=== PATIENT | female | born 1940 | race Caucasian/White ===

== ENCOUNTER 2023-03-17 07:42 | Outpatient (OUT) | payer MEDICARE, OTHER, SELFPAY ==
--- NOTE | 2023-03-17 07:57 | MM_ITS ---
Patient: SON STROUD Exam Date: 03/17/2023 : 1940 Gender:F Ordering : DR OCHOA MEDINA M.D. Admission #: [id number] Family : Order #: [id number] CLICK HERE TO VIEW EXAM RADIOLOGY REPORT PROCEDURE: MM TOMOSYNTHESIS SCREENING BI COMPARISON: MG MAMM SCREEN 3D NIC CAD, 03/08/2021. MG MAMM SCREEN 3D NIC CAD, 03/16/2022. INDICATIONS: Screening mammogram Z12.31 Calculator Name NCI Breast Cancer Risk Assessment Tool 5 Year Breast Cancer Risk n/a% Lifetime Breast Cancer Risk n/a% Personal Breast Cancer Yes, lt intraductal comeocarcinoma with necrosis Personal Ovarian Cancer No Treatments lumpectomy and radiation therapy Family Cancers None LOCATION: [facility] BREAST COMPOSITION: Scattered areas fibroglandular density. FINDINGS: DIAGNOSTIC CATEGORY 2--BENIGN FINDING. NO CHANGE FROM COMPARISON. Scattered benign-appearing calcifications are present. Scattered benign-appearing lymph nodes are present. RIGHT BREAST: No significant suspicious finding. LEFT BREAST: No significant suspicious finding. Asymmetrically small with an area of architectural distortion upper outer quadrant, deep to linear scar markers, stable RECOMMENDATIONS: ROUTINE MAMMOGRAM AND CLINICAL EVALUATION IN 12 MONTHS. PLEASE NOTE: A NORMAL MAMMOGRAM DOES NOT EXCLUDE THE POSSIBILITY OF BREAST CANCER. A CLINICALLY SUSPICIOUS PALPABLE LUMP SHOULD BE BIOPSIED. Dictated by: Pato Wolfe MD on 03/17/2023 at 09:09 Approved by: Pato Wolfe MD on 03/17/2023 at 09:14
== END 2023-03-17 07:43 | disposition home or self-care (01) ==
LOC: MAMMO 07:47
PROVIDERS: PCP Family Medicine; Visit Provider Family Medicine
DX: Z12.31 Encounter for screening mammogram for malignant neoplasm of breast (principal)
CPT/HCPCS: 77063; 77067

== ENCOUNTER 2023-06-07 09:07 | Outpatient (OUT) | payer MEDICARE, OTHER, SELFPAY ==
[2023-06-07 09:40] LABS: Basophils Percent Auto 0.7 % (0.2-2.0); Eosinophils Absolute Auto 0.1 10^3/uL (0.0-0.7); Eosinophils Percent Auto 1.8 % (0.9-7.0); Hematocrit 41.5 % (36.0-48.0); Immature Granulocytes Abs Auto 0.02 10^3/uL (0.00-0.03); Immature Granulocytes Pct Auto 0.4 % (0.0-0.5); Lymphocytes Absolute Auto 1.3 10^3/uL (1.2-3.8); Lymphocytes Percent Auto 22.3 % (20.5-60.0); Mean Corpuscular HGB Conc 31.3 g/dL (29.9-35.2); Mean Corpuscular Hemoglobin 29.3 pg (26.7-34.0); Mean Corpuscular Volume 93.7 fL (81.0-99.0); Mean Platelet Volume 11.3 fL (9.5-13.5); Monocytes Absolute Auto 0.5 10^3/uL (0.3-0.8); Monocytes Percent Auto 7.9 % (1.7-12.0); Neutrophils Absolute Auto 3.8 10^3/uL (1.4-6.5); Neutrophils Percent Auto 66.9 % (43.0-75.0); Platelet Count 216 10^3/uL (150-450); Red Blood Count 4.43 10^6/uL (4.20-5.40); Red Cell Distribution Width 14.1 % (11.0-15.0); White Blood Count 5.7 10^3/uL (4.0-11.0)
[2023-06-07 12:12] LABS: Alanine Aminotransferase 23 U/L (14-59); Albumin Globulin Ratio 0.9; Albumin Level 3.4 g/dL (3.4-5.0); Alkaline Phosphatase 125 U/L (46-116); Anion Gap 12.5; Aspartate Amino Transferase 22 U/L (15-37); BUN Creatinine Ratio 29.4; Bilirubin Total 0.3 mg/dL (0.2-1.0); Carbon Dioxide 29.8 mmol/L (21.0-32.0); Chloride 106 mmol/L (98-107); Chol HDL Ratio 2.8; Cholesterol 300 mg/dL (<=200); Estimated GFR (African America >60 (>=60); Estimated GFR (Non-African Ame >60 (>=60); Globulin 3.7 g/dL; Glucose 96 mg/dL (74-106); HDL Cholesterol 108 mg/dL (40-60); Potassium 4.3 mmol/L (3.5-5.1); Sodium 144 mmol/L (136-145); Total Protein 7.1 g/dL (6.4-8.2); Triglycerides 82 mg/dL (<=150); VLDL CHOLESTEROL 16.4 mg/dL
== END 2023-06-07 09:08 | disposition home or self-care (01) ==
LOC: LAB 09:09
PROVIDERS: PCP Family Medicine; Visit Provider Physician Assistant
DX: Z00.00 Encounter for general adult medical examination without abnormal findings (principal); I10 Essential (primary) hypertension; E80.0 Hereditary erythropoietic porphyria
CPT/HCPCS: 36415; 80053; 80061; 85025

== ENCOUNTER 2023-09-08 07:44 | Outpatient (OUT) | payer MEDICARE, OTHER, SELFPAY ==
--- NOTE | 2023-09-08 07:48 | XR_ITS ---
[place] [id number] Patient Name: SON STROUD MRN: [id number] date: 1940 Sex: F Assigned Patient Location: [facility] Current Patient Location: [facility] Accession/Order Number: [id number] Exam Date: 09/08/2023 08:00 Report Date: 09/08/2023 08:49 At the request of: OCHOA MEDINA Procedure: XR DEXA axial skeleton EXAMINATION: XR DEXA axial skeleton, 09/08/2023 8:00 AM EST HISTORY: Age Related Osteoporosis COMPARISON: 2020, 2018, 2014, 2011. TECHNIQUE: Dual-energy X-ray absorptiometry (DEXA) bone density study performed for the axial skeleton. HISTORY: Age Related Osteoporosis FINDINGS: Bone mineral density of the lumbar spine L1-L4 measures 1.032 g/sq cm. T score -1.2. WHO classification: Osteopenia. Lowest bone mineral density right femoral neck measures 0.762 g/sq cm. T score -2.0. WHO classification: Osteopenia XR/XR DEXA axial skeleton IMPRESSION: Osteopenia. Moderate fracture risk Electronically authenticated by: MOISES BAH Date: 09/08/2023 08:49
== END 2023-09-08 07:45 | disposition home or self-care (01) ==
LOC: RAD 07:44
PROVIDERS: PCP Family Medicine; Visit Provider Family Medicine
DX: Z00.00 Encounter for general adult medical examination without abnormal findings (principal); M81.0 Age-related osteoporosis without current pathological fracture; E28.39 Other primary ovarian failure; M85.80 Other specified disorders of bone density and structure, unspecified site
CPT/HCPCS: 77080

== ENCOUNTER 2024-03-18 08:14 | Outpatient (OUT) | payer MEDICARE, OTHER, SELFPAY ==
--- NOTE | 2024-03-18 08:17 | MM_ITS ---
Patient Name: SON STROUD MR#: [id number] : 1940 Exam Date: 03/18/2024 Ordering Doctor: DR OCHOA MEDINA M.D. RADIOLOGY REPORT PROCEDURE: MM TOMOSYNTHESIS SCREENING BI COMPARISON: MG MAMM SCREEN 3D NIC CAD, 03/16/2022. MM TOMOSYNTHESIS SCREENING BI, 03/17/2023. INDICATIONS: screening Calculator Name NCI Breast Cancer Risk Assessment Tool 5 Year Breast Cancer Risk Not Applicable. Lifetime Breast Cancer Risk Not Applicable. Personal Breast Cancer Yes, lt intraductal comeocarcinoma with necrosis Personal Ovarian Cancer No Treatments lumpectomy and radiation therapy Family Cancers None LOCATION: [facility] BREAST COMPOSITION: There are scattered areas of fibroglandular density. FINDINGS: DIAGNOSTIC CATEGORY 2--BENIGN FINDING. NO CHANGE FROM COMPARISON. Scattered benign-appearing calcifications are present. Scattered benign-appearing lymph nodes are present. RIGHT BREAST: No significant suspicious finding. LEFT BREAST: No significant suspicious finding. Asymmetrically small, stable. Area of architectural distortion upper outer quadrant, deep to a linear scar marker, unchanged. RECOMMENDATIONS: ROUTINE MAMMOGRAM AND CLINICAL EVALUATION IN 12 MONTHS. PLEASE NOTE: A NORMAL MAMMOGRAM DOES NOT EXCLUDE THE POSSIBILITY OF BREAST CANCER. A CLINICALLY SUSPICIOUS PALPABLE LUMP SHOULD BE BIOPSIED. Dictated by: Pato Wolfe MD on 03/18/2024 at 09:11 Approved by: Pato Wolfe MD on 03/18/2024 at 09:14
== END 2024-03-18 08:15 | disposition home or self-care (01) ==
LOC: MAMMO 08:15
PROVIDERS: PCP Family Medicine; Visit Provider Family Medicine
DX: Z12.31 Encounter for screening mammogram for malignant neoplasm of breast (principal)
CPT/HCPCS: 77063; 77067

== ENCOUNTER 2025-03-19 07:40 | Outpatient (OUT) | payer MEDICARE, OTHER, SELFPAY ==
--- NOTE | 2025-03-19 07:47 | MM_ITS ---
Patient Name: SON STROUD MR#: [id number] : 1940 Exam Date: 03/19/2025 Ordering Doctor: DR OCHOA MEDINA M.D. RADIOLOGY REPORT PROCEDURE: MM TOMOSYNTHESIS SCREENING BI COMPARISON: MM TOMOSYNTHESIS SCREENING BI, 03/18/2024. MM TOMOSYNTHESIS SCREENING BI, 03/17/2023. MG MAMM SCREEN 3D NIC CAD, 03/16/2022. MG MAMM NIC DIAG W CAD DIG, 09/02/2013. INDICATIONS: Screening Calculator Name NCI Breast Cancer Risk Assessment Tool 5 Year Breast Cancer Risk Not Applicable. Lifetime Breast Cancer Risk Not Applicable. Personal Breast Cancer Yes, lt intraductal comeocarcinoma with necrosis Personal Ovarian Cancer No Treatments lumpectomy and radiation therapy Family Cancers None LOCATION: [facility] BREAST COMPOSITION: There are scattered areas of fibroglandular density. FINDINGS: DIAGNOSTIC CATEGORY 1--NEGATIVE. RIGHT BREAST: No significant suspicious finding. LEFT BREAST: No significant suspicious finding. Stable post treatment changes left breast. RECOMMENDATIONS: ROUTINE MAMMOGRAM AND CLINICAL EVALUATION IN 12 MONTHS. PLEASE NOTE: A NORMAL MAMMOGRAM DOES NOT EXCLUDE THE POSSIBILITY OF BREAST CANCER. A CLINICALLY SUSPICIOUS PALPABLE LUMP SHOULD BE BIOPSIED. Dictated by: Royce Hughes DO on 03/19/2025 at 15:35 Approved by: Royce Hughes DO on 03/19/2025 at 15:38
--- OUTSIDE RECORDS SUMMARY | 2025-03-19 08:01 | XMS_ITS | CCD ---
Author Organization [facility] Care Team Providers Care Outside Repairer Special Name Role Phone ADAM, DR PACKER Primary Care Unavailable ADAM, DR PACKER Admitting Unavailable ADAM, DR PACKER Attending Unavailable ADAM, DR PACKER Consulting Unavailable ZIEBER, DR YOSVANY Pedro Consulting Unavailable ADAM, DR PACKER Primary Care Unavailable HEMMER, DR TONIA Arzola Attending Unavailable HEMMER, DR TONIA Arzola Consulting Unavailable HEMMER, DR TONIA Arzola Admitting Unavailable ADAM, DR PACKER Primary Care Unavailable ALBA OJEDA Attending Unavailable ALBA OJEDA Admitting Unavailable PENSACOLA, DR MOISES [employer] Consulting Unavailable ALBA OJEDA Consulting Unavailable Shannon Dotson Unavailable Helen Medina MD Primary Care Provider [phone] Helen Medina MD Unavailable Helen Medina MD Unavailable TOYIN ZULETA Attending Unavailable TONIA FLORES Attending Unavailable TONIA FLORES Attending Unavailable TOYIN ZULETA Attending Unavailable TOYIN ZULETA Attending Unavailable TOYIN ZULETA Attending Unavailable ALBA OJEDA Attending Unavailable KATT LOVE Attending Unavailable MECHE RODRIGUEZ Attending Unavailable MECHE RODRIGUEZ Referring Unavailable TONIA FLORES Attending Unavailable TONIA FLORES Attending Unavailable Allergies Allergy Classification Reported Allergen(s) Allergy Type Date of Onset Reaction(s) Facility (20 sources) Pollen Allergy to substance 3 Rash [facility] (20 sources) Other Propensity to adverse reactions 3 [facility] Medications Current Medications Medication Drug Class(es) Dates Sig (Normalized) Sig (Original) alendronic acid 70 mg oral tablet (20 sources) Bisphosphonate Start: 08-14-2023 alendronate (Fosamax) 70 MG tablet Indications: Age-related osteoporosis without current pathological fracture TAKE 1 TAB 30 MIN BEFORE FIRST FOOD/BEVERAGE/MEDI CINE OF THE DAY WITH PLAIN WATER ONCE A WEEK 12 tablet 3 08/14/2023 Active amoxicillin 875 mg / clavulanate 125 mg oral tablet (6 sources) Penicillin-class Antibacterial Start: 01-06-2025 End: 01-13-2025 take 1 tablet by mouth in the morning amoxicillin-clavul anate (Augmentin) 875-125 MG tablet Indications: Acute non-recurrent ethmoidal sinusitis Take 1 tablet (875 mg) by mouth in the morning and 1 tablet (875 mg) in the evening. Take with meals. Do all this for 7 days. 14 tablet 01/06/2025 01/13/2025 Active Start: 08-06-2024 End: 08-16-2024 take 1 tablet by mouth in the morning amoxicillin-clavulanate (Augmentin) 875-125 MG tablet Indications: Acute non-recurrent pansinusitis Take 1 tablet (875 mg) by mouth in the morning and 1 tablet (875 mg) before bedtime. Do all this for 10 days. 20 tablet 08/06/2024 08/16/2024 Active Start: 11-07-2023 End: 11-17-2023 take 1 tablet by mouth in the morning amoxicillin-clavulanate (Augmentin) 875-125 MG tablet Indications: Acute recurrent frontal sinusitis Take 1 tablet (875 mg) by mouth in the morning and 1 tablet (875 mg) in the evening. Take with meals. Do all this for 10 days. 20 tablet 0 11/07/2023 11/17/2023 Active ascorbic acid 60 mg / cuprous oxide 2 mg / dl-alpha tocopheryl acetate 30 mg / lutein 6 mg / zinc oxide 15 mg oral capsule (5 sources) Vitamin C Multiple Vitamins-Minerals (Eye Vitamins) capsule Orally Active Aspirin (1 source) Platelet Aggregation Inhibitor, Nonsteroidal Anti-inflammatory Drug Baby Aspirin Active azelastine hydrochloride 0.137 mg/actuat metered dose nasal spray (20 sources) Histamine-1 Receptor Antagonist Start: 023 take 1 spray(s) nasal route in the morning azelastine (Astelin) 0.1 % nasal spray Administer 1 spray into each nostril in the morning and 1 spray before bedtime. 01/18/2023 Active cefdinir 300 mg oral capsule (10 sources) Cephalosporin Antibacterial Start: End: take 1 capsule by mouth in the morning cefdinir (Omnicef) 300 MG capsule Indications: Acute frontal sinusitis, recurrence not specified Take 1 capsule (300 mg) by mouth in the morning and 1 capsule (300 mg) before bedtime. Do all this for 10 days. 20 capsule 09/04/2024 09/14/2024 Active cetirizine hydrochloride 10 mg oral tablet (20 sources) Histamine-1 Receptor Antagonist take 1 tablet by mouth in the morning cetirizine (ZyrTEC) 10 MG tablet Take 10 mg by mouth in the morning. Active ciprofloxacin 500 mg oral tablet (8 sources) Quinolone Antimicrobial Start: End: take 1 tablet by mouth in the morning ciprofloxacin (Cipro) 500 MG tablet Indications: Onycholysis due to Pseudomonas infection Take 1 tablet (500 mg) by mouth in the morning and 1 tablet (500 mg) before bedtime. Do all this for 14 days. 28 tablet 06/03/2024 06/17/2024 Discontinued (Therapy completed) Start: 05-14-2024 End: 05-24-2024 take 1 tablet by mouth in the morning ciprofloxacin (Cipro) 500 MG tablet Indications: Onycholysis due to Pseudomonas infection Take 1 tablet (500 mg) by mouth in the morning and 1 tablet (500 mg) before bedtime. Do all this for 10 days. 20 tablet 05/14/2024 05/24/2024 Active codeine phosphate 2 mg/ml / guaiFENesin 20 mg/ml oral solution (1 source) Opioid Agonist Start: 12-28-2015 take 10 mL by mouth every four to six hours as needed guaiFENesin AC 100-10 MG/5ML 10 ml as needed Orally every 4-6 hrs Dec, Active cromolyn sodium 40 mg/ml ophthalmic solution (20 sources) Mast Cell Stabilizer Start: 09-12-2024 cromolyn (Opticrom) 4 % ophthalmic solution Indications: Allergic conjunctivitis of both eyes Administer 1 drop into both eyes in the morning and 1 drop at noon and 1 drop in the evening and 1 drop before bedtime. 30 mL 3 09/12/2024 Active Start: 03-05-2024 End: 09-12-2024 take 1 drop(s) into the eye(s) four times daily cromolyn (Opticrom) 4 % ophthalmic solution Indications: Unspecified macular degeneration INSTILL 1 DROP INTO AFFECTED EYE 4 TIMES DAILY 30 mL 1 03/05/2024 09/12/2024 Discontinued (Reorder) Start: 05-24-2023 take 1 drop(s) into the eye(s) four times daily cromolyn (Opticrom) 4 % ophthalmic solution Indications: Unspecified macular degeneration INSTILL 1 DROP INTO AFFECTED EYE 4 TIMES DAILY 30 mL 1 05/24/2023 Active fluticasone propionate 0.05 mg/actuat metered dose nasal spray (2 sources) Corticosteroid take 1 spray(s) nasal route once daily fluticasone (Flonase) 50 MCG/ACT nasal spray Administer 1 spray into each nostril Daily Shake gently. Before first use, prime pump. After use, clean tip and replace cap. Active hydrocortisone 25 mg/ml topical cream (20 sources) Corticosteroid Start: hydrocortisone 2.5 % cream Indications: Other seborrheic dermatitis Apply topically 2 (two) times a day as needed (Rash) Apply thin layer to affected areas bid prn for flares 30 g 3 11/14/2023 Active hydrocortisone 2 .5 % cream every 12 (twelve) hours. 0 Active metoprolol tartrate 50 mg oral tablet (20 sources) beta-Adrenergic Korey Start: 06-05-2024 metopr olol tartrate (Lopressor) 50 MG tablet Indications: Benign essential hypertension TAKE 1 TABLET TWICE DAILY WITH FOOD 200 tablet 3 06/05/2024 Active Start: 03-05-2024 metoprolol tar trate (Lopressor) 50 MG tablet Indications: Benign essential hypertension (CMS/HCC) TAKE 1 TABLET TWICE DAILY WITH FOOD 200 tablet 3 03/05/2024 Active Start: 09-27-2023 metoprolol tar trate (Lopressor) 50 MG tablet Indications: Benign essential hypertension (CMS/HCC) TAKE 1 TABLET TWICE DAILY WITH FOOD 200 tablet 3 09/27/2023 Active Metoprolol Tartr ate Active Multiple Vitamins-Minerals ( Eye Vitamins) capsule (20 sources) Multiple Vitamin s-Minerals (Eye Vitamins) capsule Orally Active Multiple Vitamin s-Minerals (Eye Vitamins) capsule Orally 0 Active Completed/Discontinued Medications Medication Drug Class(es) Dates Sig (Normalized) Sig (Original) doxycycline monohydrate 100 mg oral capsule (1 source) Tetracycline-class Drug Start: 12-28-2015 take 1 capsule by mouth every twelve hours Doxycycline Monohydrate 100 mg 1 capsule Orally bid for 10 day(s) Dec, Not-Taking 1 ml triamcinolone acetonide 40 mg/ml prefilled syringe (4 sources) Corticosteroid Start: 08-06-2024 End: 08-06-2024 triamcinolone acetonide (Kenalog-40) injection 40 mg Start: 08-06-2024 End: 08-06-2024 inject 40 mg by intramuscular injection once 40 mg, Intramuscular, Once, On Mon08/06/24 at 1100, For 1 dose Start: 08-06-2024 End: 08-06-2024 triamcinolone acetonide (Kenalog-40) injection 40 mg Start: 08-06-2024 End: 08-06-2024 inject 40 mg by intramuscular injection once 40 mg, Intramuscular, Once, On Mon08/06/24 at 1100, For 1 dose Problems Active Problems Problem Classification Problem Date Documented Da te Episodic/Chronic Administrative/social admission (2 sources) Patient encounter status; Translations: [Other specified counseling] 09-12-2024 Episodic Disorders of lipid metabolism (20 sources) Hypercholesterolemi a; Translations: [Pure hypercholesterolemi a, unspecified] Onset: 03-13-2023 06-20-2023 Chronic Diverticulosis and diverticulitis (20 sources) Diverticular disease; Translations: [Diverticulosis of intestine, part unspecified, without perforation or abscess without bleeding] Onset: 03-13-2023 03-13-2023 Chronic E Codes: Fall (2 sources) Fall; Translations: [Unspecified fall, initial encounter] 09-06-2024 Episodic Essential hypertension (20 sources) Benign essential hypertension; Translations: [Essential (primary) hypertension] Onset: 03-13-2023 03-13-2023 Chronic Osteoporosis (20 sources) Age-related osteoporosis without current pathological fracture; Translations: [Osteoporosis] Onset: 06-18-2021 03-13-2023 Chronic Other and unspecified benign neoplasm (2 sources) Melanocytic nevus of trunk; Translations: [Melanocytic nevi of trunk] 11-18-2024 Episodic Other and unspecified benign neoplasm (2 sources) Melanocytic nevus of left upper limb; Translations: [Melanocytic nevi of left upper limb, including shoulder] 11-18-2024 Episodic Other and unspecified benign neoplasm (2 sources) Melanocytic nevus of right upper limb; Translations: [Melanocytic nevi of right upper limb, including shoulder] 11-18-2024 Episodic Other and unspecified benign neoplasm (2 sources) Neurofibroma; 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, unspecified] 11-18-2024 Episodic Other lower respiratory disease (2 sources) Rib pain; Translations: [Pleurodynia] 09-06-2024 Episodic Other screening for suspected conditions (not mental disorders or infectious disease) (4 sources) Encounter for screening mammogram for malignant neoplasm of breast; Translations: [ENC SCR MAMMO MALIG NEOPLASM BREAST] Onset: 03-16-2022 Episodic Other skin disorders (8 sources) Onycholysis; Translations: [Onycholysis] 05-14-2024 Episodic Other skin disorders (2 sources) Seborrheic keratosis; Translations: [Other seborrheic keratosis] 11-18-2024 Episodic Other skin disorders (2 sources) Actinic keratosis; Translations: [Actinic keratosis] 11-18-2024 Episodic Other skin disorders (2 sources) Sebaceous hyperplasia; Translations: [Other specified follicular disorders] 11-18-2024 Episodic Other upper respiratory disease (20 sources) Allergic rhinitis due to pollen; Translations: [Allergic rhinitis due to pollen] Onset: 03-13-2023 03-13-2023 Chronic Other upper respiratory disease (4 sources) Nasal congestion; Translations: [NASAL CONGESTION] Onset: 03-01-2022 Episodic Other upper respiratory infections (9 sources) Acute sinusitis; Translations: [Acute sinusitis] 11-07-2023 Episodic Residual codes; unclassified (20 sources) Hypersomnia; Translations: [Hypersomnia, unspecified] Onset: 03-13-2023 03-13-2023 Chronic Residual codes; unclassified (20 sources) Obstructive sleep apnea syndrome; Translations: [Obstructive sleep apnea (adult) (pediatric)] Onset: 03-13-2023 03-13-2023 Chronic Retinal detachments; defects; vascular occlusion; and retinopathy (20 sources) Bilateral degeneration of macula; 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] Onset: 03-13-2023 03-13-2023 Chronic Spondylosis; intervertebral disc disorders; other back problems (20 sources) Cervical spondylosis; Translations: [Spondylosis without myelopathy or radiculopathy, cervical region] Onset: 03-13-2023 03-13-2023 Chronic Superficial injury; contusion (2 sources) Contusion of left front wall of thorax, subsequent encounter; Translations: [Other specified aftercare] 09-09-2024 Episodic Unclassified (1 source) CONTACT W/AND (SUSP) EXPOS COVID-19; Translations: [CONTACT W/AND (SUSP) EXPOS COVID-19] Onset: 03-04-2022 Past or Other Problems Problem Classification Problem Date Documented Da te Episodic/Chronic Epilepsy; convulsions (20 sources) Seizure; Translations: [Unspecified convulsions] Onset: 03-13-2023 03-13-2023 Episodic Immunizations and screening for infectious disease (1 source) Contact with and (suspected) exposure to other viral communicable diseases Onset: 07-15-2021 Resolved: 07-15-2021 Episodic Inflammation; infection of eye (except that caused by tuberculosis or sexually transmitteddisease) (20 sources) Allergic conjunctivitis of bilateral eyes; Translations: [Acute atopic conjunctivitis, bilateral] Onset: 03-13-2023 03-13-2023 Episodic Mood disorders (20 sources) Mood disorders Onset: 06-06-2023 06-06-2023 Other bone disease and musculoskeletal deformities (1 source) Other specified disorders of bone density and structure, right thigh; Translations: [OTH D/O BONE DEN STRUCT RT THIGH] Onset: 06-18-2021 Episodic Results Test Name Value Interpretation Reference Range Facility No Panel Informationon 11-18 [facility] (INCLUDES DIFF/PLT)on Basophils (Bld) [#/Vol] 0.013 10*3/uL Normal 0-200 [facility] Comment on above: Performed By: #### 1 5101, 7299 #### [facility] [address] [place] [address] Postdoctoral Fellow: Caroline Garcia #### 7600 #### [facility] [place] [address] [address] , [address] [place] [address] Postdoctoral Fellow: Ricardo Garcia MD Basophils/100 WBC (Bld) 0.2 % Normal [facility] Comment on above: Performed By: #### 1 0231, 6399 #### [facility] [address] [place] [address] Postdoctoral Fellow: Caroline Garcia #### 7600 #### [facility] [place] [address] [address] , [address] [place] [address] Postdoctoral Fellow: Ricardo Garcia MD Eosinophils (Bld) [#/Vol] 0.04 10*3/uL Normal 15-500 [facility] Comment on above: Performed By: #### 1 0231, 6399 #### [facility] [address] Postdoctoral Fellow: Caroline Garcia #### 7600 #### [facility] [place] [address], [address] [place] [address] Postdoctoral Fellow: Ricardo Garcia MD Eosinophils/100 WBC (Bld) 0.6 % Normal [facility] Comment on above: Performed By: #### 1 0231, 6399 #### [facility] [address] Postdoctoral Fellow: Caroline Garcia #### 7600 #### [facility] of [address], [address] [place] [address] Postdoctoral Fellow: Ricardo Garcia MD Erythrocyte distribution width (RBC) [Ratio] 14.2 % Normal 11.0-15.0 [facility] Comment on above: Performed By: #### 1 0231, 6399 #### [facility] [address] [place] [address] Postdoctoral Fellow: Caroline Garcia #### 7600 #### [facility] [address], [address] [place] [address] Postdoctoral Fellow: Ricardo Garcia MD Hematocrit (Bld) [Volume fraction] 38.8 % Normal 35.0-45.0 [facility] Comment on above: Performed By: #### 1 0231, 6399 #### [facility] [address] [place], [place] [id number] Postdoctoral Fellow: Caroline Garcia #### 7600 #### [facility] [address], [address] [place] [address] Postdoctoral Fellow: Ricardo Garcia MD Hemoglobin (Bld) [Mass/Vol] 12.6 g/dL Normal 11.7-15.5 [facility] Comment on above: Performed By: #### 1 0231, 6399 #### [facility] [address] [place], [place] [id number] Postdoctoral Fellow: Caroline Garcia #### 7600 #### [facility] [address], [address] [place] [address] Postdoctoral Fellow: Ricardo Garcia MD Lymphocytes (Bld) [#/Vol] 0.878 10*3/uL Normal 850-3900 [facility] Comment on above: Performed By: #### 1 0231, 6399 #### [facility] [address] [place], [place] [id number] Postdoctoral Fellow: Caroline Garcia #### 7600 #### [facility] [address], [address] [place] [address] Postdoctoral Fellow: Ricardo Garcia MD Lymphocytes/100 WBC (Bld) 13.1 % Normal [facility] Comment on above: Performed By: #### 1 0231, 6399 #### [facility] [address] [place], [place] [id number] Postdoctoral Fellow: Caroline Garcia #### 7600 #### [facility] [place] [address] [address] , [address] [place] [address] Postdoctoral Fellow: Ricardo Garcia MD MCH (RBC) [Entitic mass] 29.5 pg Normal 27.0-33.0 [facility] Comment on above: Performed By: #### 1 230, 6399 #### [facility] [address] Postdoctoral Fellow: Caroline Garcia #### 7600 #### [facility] [address], [address] [place] [address] Postdoctoral Fellow: Ricardo Garcia MD MCHC (RBC) [Mass/Vol] 32.5 g/dL Normal 32.0-36.[address] [facility] Comment on above: Result Comment: For adults, a slight decrease in the calculated MCHC value (in the range of 30 to 32 g/dL) is most likely not clinically significant; however, it should be interpreted with caution in correlation with other red cell parameters and the patient's clinical condition. Performed By: #### 1 230, 6399 #### [facility] [address] Postdoctoral Fellow: Caroline Garcia #### 7600 #### [facility] [address], [address] [place] [address] Postdoctoral Fellow: Ricardo Garcia MD MCV (RBC) [Entitic vol] 90.9 fL Normal 80.0-100.0 [facility] Comment on above: Performed By: #### 1 230, 63 #### [facility] [address] Postdoctoral Fellow: Caroline Garcia #### 7600 #### [facility] [address], [address] [place] [address] Postdoctoral Fellow: Ricardo Garcia MD Monocytes (Bld) [#/Vol] 0.382 10*3/uL Normal 200-950 [facility] Comment on above: Performed By: #### 1 230, 6399 #### [facility] [address] [place] [address] Postdoctoral Fellow: Caroline Garcia #### 7600 #### [facility] [address], [address] [place] [address] Postdoctoral Fellow: Ricardo Garcia MD Monocytes/100 WBC (Bld) 5.7 % Normal [facility] Comment on above: Performed By: #### 1 0231, 6399 #### [facility] [address] [place] [address] Postdoctoral Fellow: Caroline Garcia #### 7600 #### [facility] [address], [address] [place] [address] Postdoctoral Fellow: Ricardo Garcia MD Neutrophils (Bld) [#/Vol] 5.387 10*3/uL Normal 7391-0143 [facility] Comment on above: Performed By: #### 1 0231, 6399 #### [facility] [address] [place] [address] Postdoctoral Fellow: Caroline Garcia #### 7600 #### [facility] [address], [address] [place] [address] Postdoctoral Fellow: Ricardo Garcia MD Neutrophils/100 WBC (Bld) 80.4 % Normal [facility] Comment on above: Performed By: #### 1 0231, 6399 #### [facility] [address] Postdoctoral Fellow: Caroline Garcia #### 7600 #### [facility] [address], [address] [place] [address] Postdoctoral Fellow: Ricardo Garcia MD Platelet mean volume (Bld) [Entitic vol] 10.6 fL Normal 7.5-12.5 [facility] Comment on above: Performed By: #### 1 0231, 6399 #### [facility] [address] [place], [place] [id number] Postdoctoral Fellow: Caroline Garcia #### 7600 #### [facility] [address], [address] [place] [address] Postdoctoral Fellow: Ricardo Garcia MD Platelets (Bld) [#/Vol] 240 10*3/uL Normal 140-400 [facility] Comment on above: Performed By: #### 1 0231, 6399 #### [facility] [address] [place] [id number] Postdoctoral Fellow: Caroline Garcia #### 7600 #### [facility] [place] [address] Postdoctoral Fellow: Ricardo Garcia MD RBC (Bld) [#/Vol] 4.27 10*6/uL Normal 3.80-5.10 [facility] Comment on above: Performed By: #### 1 0231, 6399 #### [facility] [address] [place], [place] [id number] Postdoctoral Fellow: Caroline Garcia #### 7600 #### [facility] [address], [address] [place] [address] Postdoctoral Fellow: Ricardo Garcia MD WBC (Bld) [#/Vol] 6.7 10*3/uL Normal 3.8-10.8 [facility] Comment on above: Performed By: #### 1 0231, 6399 #### [facility] [id number] Postdoctoral Fellow: Caroline Garcia #### 7600 #### [facility] [place] [address] Postdoctoral Fellow: Ricardo Garcia MD [facility] 09-14-2024 Albumin [Mass/Vol] 3.6 g/dL Normal 3.6-5.1 [facility] Comment on above: Performed By: #### 1 0231, 6399 #### [facility] [address] [place], [place] [id number] Postdoctoral Fellow: Caroline Garcia #### 7600 #### [facility] [place] [address] Postdoctoral Fellow: Ricardo Garcia MD Albumin/Globulin [Mass ratio] 1.5 {ratio} Normal 1.0-2.5 [facility] Comment on above: Performed By: #### 1 0231, 6399 #### [facility] [address] [place], [place] [id number] Postdoctoral Fellow: Caroline Garcia #### 7600 #### [facility] [address], [address] [place] [address] Postdoctoral Fellow: Ricardo Garcia MD ALP [Catalytic activity/Vol] 107 U/L Normal 37-153 [facility] Comment on above: Performed By: #### 1 230, 6399 #### [facility] [address] [place], [place] [id number] Postdoctoral Fellow: Caroline Garcia #### 7600 #### [facility] [address], [address] [place] [address] Postdoctoral Fellow: Ricardo Garcia MD ALT [Catalytic activity/Vol] 12 U/L Normal 6-29 [facility] Comment on above: Performed By: #### 1 230, 63 #### [facility] [address] [place] [address] Postdoctoral Fellow: Caroline Garcia #### 7600 #### [facility] [address], [address] [place] [address] Postdoctoral Fellow: Ricardo Garcia MD AST [Catalytic activity/Vol] 16 U/L Normal 10-35 [facility] Comment on above: Performed By: #### 1 230, 6399 #### [facility] [address] [place] [address] Postdoctoral Fellow: Caroline Garcia #### 7600 #### [facility] [address], [address] [place] [address] Postdoctoral Fellow: Ricardo Garcia MD Bilirubin [Mass/Vol] 0.4 mg/dL Normal 0.2-1.2 [facility] Comment on above: Performed By: #### 1 023, 6399 #### [facility] [address] [place] [address] Postdoctoral Fellow: Caroline Garcia #### 7600 #### [facility] [place] [address], [address] [place] [address] Postdoctoral Fellow: Ricardo Garcia MD BUN/CREATININE RATIO SEE NOTE: Normal 6-22 [facility] Comment on above: Result Comment: Not Reported: BUN and Creatinine are within reference range. Performed By: #### 1 0231, 6399 #### [facility] [address] [place] [address] Postdoctoral Fellow: Caroline Garcia #### 7600 #### [facility] [place] [address] [address] , [address] [place] [address] Postdoctoral Fellow: Ricardo Garcia MD Calcium [Mass/Vol] 8.7 mg/dL Normal 8.6-10.4 [facility] Comment on above: Performed By: #### 1 0231, 6399 #### [facility] [address] Postdoctoral Fellow: Caroline Garcia #### 7600 #### [facility] [place] [address] [address] , [address] [place] [address] Postdoctoral Fellow: Ricardo Garcia MD Chloride [Moles/Vol] 109 mmol/L Normal 98-110 [facility] Comment on above: Performed By: #### 1 0231, 6399 #### [facility] [address] [place] [address] Postdoctoral Fellow: Caroline Garcia #### 7600 #### [facility] [place] [address] [address] , [address] [place] [address] Postdoctoral Fellow: Ricardo Garcia MD CO2 [Moles/Vol] 28 mmol/L Normal 20-32 [facility] Comment on above: Performed By: #### 1 0231, 6399 #### [facility] [address] [place] [address] Postdoctoral Fellow: Caroline Garcia #### 7600 #### [facility] [place] [address] [place] , [address] [place] [address] Postdoctoral Fellow: Ricardo Garcia MD Creatinine [Mass/Vol] 0.62 mg/dL Normal 0.60-0.95 [facility] Comment on above: Performed By: #### 1 230, [id number] #### [facility] [address] [place] [address] Postdoctoral Fellow: Caroline Garcia #### 7600 #### [facility] [address], [address] [place] [address] Postdoctoral Fellow: Ricardo Garcia MD GFR/1.73 sq M.predicted among non-blacks MDRD (S/P/Bld) [Vol rate/Area] 87 mL/min/{1.73_m2} Normal > OR = 60 [facility] Comment on above: Performed By: #### 1 230, 6399 #### [facility] [address] Postdoctoral Fellow: Caroline Garcia #### 7600 #### [facility] [address], [address] [place] [address] Postdoctoral Fellow: Ricardo Garcia MD Globulin (S) [Mass/Vol] 2.4 g/dL Normal 1.9-3.7 [employer] Comment on above: Performed By: #### 1 256, 6399 #### [facility] [address] Postdoctoral Fellow: Caroline Garcia #### 7600 #### [facility] [address], [address] [place] [address] Postdoctoral Fellow: Ricardo Garcia MD Glucose [Mass/Vol] 96 mg/dL Normal 65-99 [facility] Comment on above: Result Comment: Fasting reference interval Performed By: #### 1 452, 6399 #### [facility] [address] [place] [address] Postdoctoral Fellow: Caroline Garcia #### 7600 #### [facility] [address], [address] [place] [address] Postdoctoral Fellow: Ricardo Garcia MD Potassium [Moles/Vol] 3.9 mmol/L Normal 3.5-5.[address] [facility] Comment on above: Performed By: #### 1 0231, 6399 #### [facility] [address] [place], [place] [id number] Postdoctoral Fellow: Caroline Garcia #### 7600 #### [facility] [address], [address] [place] [address] Postdoctoral Fellow: Ricardo Garcia MD Protein [Mass/Vol] 6.0 g/dL Low 6.1-8.1 [facility] Comment on above: Performed By: #### 1 0231, 6399 #### [facility] [address] [place] [address] Postdoctoral Fellow: Caroline Garcia #### 7600 #### [facility] [address], [address] [place] [address] Postdoctoral Fellow: Ricardo Garcia MD Sodium [Moles/Vol] 143 mmol/L Normal 135-146 [facility] Comment on above: Performed By: #### 1 0231, 6399 #### [facility] [facility] [address] Postdoctoral Fellow: Caroline Garcia #### 7600 #### [facility] [address], [address] [place] [address] Postdoctoral Fellow: Ricardo Garcia MD Urea nitrogen [Mass/Vol] 16 mg/dL Normal 7-25 [facility] Comment on above: Performed By: #### 1 0231, 6399 #### [facility] [address] [place], [place] [id number] Postdoctoral Fellow: Caroline Garcia #### 7600 #### [facility] [place] [address] Postdoctoral Fellow: Ricardo Garcia MD LIPID PANEL, [address] Cholesterol [Mass/Vol] 276 mg/dL High <200 [facility] Comment on above: Order Comment: FASTI NG:YES FASTING: YES Performed By: #### 1 0231, 6399 #### [facility] [place] [address] Postdoctoral Fellow: Caroline Garcia #### 7600 #### [facility] [address], [address] [place], [place] [id number] Postdoctoral Fellow: Ricardo Garcia MD Cholesterol in HDL [Mass/Vol] 82 mg/dL Normal > OR = 50 [facility] Comment on above: Order Comment: FASTI NG:YES FASTING: YES Performed By: #### 1 0231, 6399 #### [facility] [address] [place] [phone] Postdoctoral Fellow: Caroline Garcia #### 7600 #### [facility] [address], [address] [place] [address] Postdoctoral Fellow: Ricardo Garcia MD Cholesterol in LDL [Mass/Vol] 171 mg/dL High [facility] Comment on above: Order Comment: FASTI NG:YES FASTING: YES Result Comment: Refe rence range: <100 Desirable range <100 mg/dL for primary prevention; <70 mg/dL for patients with CHD or diabetic patients with > or = 2 CHD risk factors. LDL-C is now calculated using the Cameron-Keyon calculation, which is a validated novel method providing better accuracy than the Friedewald equation in the estimation of LDL-C. Cameron REYNOLDS et al. SOL. 2013;310(19): 5115-1364 (http://education.eFuneral.bubl/faq/CHL828) Performed By: #### 1 0231, 6399 #### [facility] [place] [address] Postdoctoral Fellow: Caroline Garcia #### 7600 #### [facility] [address], [address] [place] [address] Postdoctoral Fellow: Ricardo Garcia MD Cholesterol.total/Chol esterol in HDL [Mass ratio] 3.4 {ratio} Normal <5.0 [facility] Comment on above: Order Comment: FASTI NG:YES FASTING: YES Performed By: #### 1 0231, 6399 #### [facility] [address] [place] [phone] Postdoctoral Fellow: Caroline Garcia #### 7600 #### [facility] [address], [address] [place] [address] Postdoctoral Fellow: Ricardo Garcia MD NON HDL CHOLESTEROL 194 mg/dL (calc) High <130 [facility] Comment on above: Order Comment: FASTI NG:YES FASTING: YES Result Comment: For patients with diabetes plus 1 major ASCVD risk factor, treating to a non-HDL-C goal of <100 mg/dL (LDL-C of <70 mg/dL) is considered a therapeutic option. Performed By: #### 1 0231, 6399 #### [facility] [address] [place] [phone] Postdoctoral Fellow: Caroline Garcia #### 7600 #### [facility] [address], [address] [place] [address] Postdoctoral Fellow: Ricardo Garcia MD Triglyceride [Mass/Vol] 108 mg/dL Normal <150 [facility] Comment on above: Order Comment: FASTI NG:YES FASTING: YES Performed By: #### 1 0231, 6399 #### [facility] [address] [place] [phone] Postdoctoral Fellow: Caroline Garcia #### 7600 #### [facility] [address], [address] [place] [address] Postdoctoral Fellow: Ricardo Garcia MD VITAMIN D,25-OH,TOTAL,IAon 1 11-15-2023 VITAMIN D,25-OH,TOTAL,IA 31 ng/mL Normal 30-100 [facility] Comment on above: Result Comment: Ellyn min D Status 25-OH Vitamin D: Deficiency: <20 ng/mL Insufficiency: 20 - 29 ng/mL Optimal: > or = 30 ng/mL For 25-OH Vitamin D testing on patients on D2-supplementation and patients for whom quantitation of D2 and D3 fractions is required, the QuestAssureD() 25-OH VIT D, (D2,D3), LC/MS/MS is recommended: order code [id number] (patients >2yrs). See Note 1 Note 1 For additional information, please refer to http://education.Tellybean/faq/QHG890 (This link is being provided for informational/ educational purposes only.) Performed By: #### 1 0231, 6399 #### [facility] [address] [place] [address] Postdoctoral Fellow: Caroline Garcia #### 7600 #### [facility] [address], [address] [place] [address] Postdoctoral Fellow: Ricardo Garcia MD XR RIBS 2 VIEWS LEFT WITH CH EST ANTEROPOSTERIORon 09-06-2024 XR RIBS 2 VIEWS LEFT WITH CHEST ANTEROPOSTERIOR Exam: XR RIBS 2 VIEWS LEFT WITH CHEST ANTEROPOSTERIOR Reason for exam: Pain left mid anterior rib pain, fell against bath tub on Monday Prior comparative studies: None Findings: Lungs are hyperinflated. There is slight undulation in cortical contour of the left anterior sixth seventh and eighth ribs although discrete fracture lines are not visible.. Pleural space is clear. Heart and mediastinum are unremarkable. IMPRESSION: 1. No definite rib fracture identified. Slight undulating contour of left anterior 6-8 ribs could be physiologic or represent prior traumatic change. It would be difficult to fully exclude nondisplaced fractures. 2. No acute cardiopulmonary sequela identified. Dictated on: 09/06/2024 8:09 AM This report has been electronically signed and approved by the interpreting radiologist. Normal Not Available XR Ribs Views and Chest PAon 09-06-2024 Exam: XR RIBS 2 VIEWS LEFT WITH CHEST ANTEROPOSTERIOR Reason for exam: Pain left mid anterior rib pain, fell against bath tub on Monday Prior comparative studies: None Findings: Lungs are hyperinflated. There is slight undulation in cortical contour of the left anterior sixth seventh and eighth ribs although discrete fracture lines are not visible.. Pleural space is clear. Heart and mediastinum are unremarkable. IMPRESSION: 1. No definite rib fracture identified. Slight undulating contour of left anterior 6-8 ribs could be physiologic or represent prior traumatic change. It would be difficult to fully exclude nondisplaced fractures. 2. No acute cardiopulmonary sequela identified. Dictated on: 09/06/2024 8:09 AM This report has been electronically signed and approved by the interpreting radiologist. IMAGING Mikey Nguyen MD - 09/06/2024 Exam: XR RIBS 2 VIEWS LEFT WITH CHEST ANTEROPOSTERIOR Reason for exam: Pain left mid anterior rib pain, fell against bath tub on Monday Prior comparative studies: None Findings: Lungs are hyperinflated. There is slight undulation in cortical contour of the left anterior sixth seventh and eighth ribs although discrete fracture lines are not visible.. Pleural space is clear. Heart and mediastinum are unremarkable. IMPRESSION: 1. No definite rib fracture identified. Slight undulating contour of left anterior 6-8 ribs could be physiologic or represent prior traumatic change. It would be difficult to fully exclude nondisplaced fractures. 2. No acute cardiopulmonary sequela identified. Dictated on: 09/06/2024 8:09 AM This report has been electronically signed and approved by the interpreting radiologist. [facility] Radiology Study observation (narrative) [facility] XR Ribs Views and Chest PAOr dered By: Mikey Nguyen on 09-06-2024 [facility]: MG MAMM SCREEN 3D NIC CADon 03-16-2022 MG MAMM SCREEN 3D NIC CAD Patient: MEI STROUD Exam Date: 03/16/2022 : 1940 Gender:F Ordering : DR HELEN MEDINA M.D. Admission #: [id number] Family : Order #: [id number] CLICK HERE TO VIEW EXAM RADIOLOGY REPORT PROCEDURE: MAMMOGRAM SCREENING 3D BILATERAL CAD COMPARISON: MG MAMM SCREEN 3D NIC CAD, 03/08/2021. MG MAMM SCREEN NIC W CAD, 03/04/2020. INDICATIONS: Screening mammography Calculator Name NCI Breast Cancer Risk Assessment Tool 5 Year Breast Cancer Risk n/a% Lifetime Breast Cancer Risk n/a% Personal Breast Cancer Yes, lt intraductal comeocarcinoma with necrosis Personal Ovarian Cancer No Treatments lumpectomy and radiation therapy Family Cancers None LOCATION: The [facility] BREAST COMPOSITION: Scattered areas fibroglandular density. FINDINGS: DIAGNOSTIC CATEGORY 2--BENIGN FINDING: RIGHT BREAST: No significant suspicious finding. No significant change has occurred. LEFT BREAST: No significant suspicious finding. Stable postsurgical scarring within posterior-midline upper breast. No significant change has occurred. RECOMMENDATIONS: ROUTINE MAMMOGRAM AND CLINICAL EVALUATION IN 12 MONTHS. PLEASE NOTE: A NORMAL MAMMOGRAM DOES NOT EXCLUDE THE POSSIBILITY OF BREAST CANCER. A CLINICALLY SUSPICIOUS PALPABLE LUMP SHOULD BE BIOPSIED. Dictated by: Yosvany Flores M.D. on 03/16/2022 at 11:39 Approved by: Yosvany Flores M.D. on 03/16/2022 at 11:42 Normal The [facility] RESPIRATORY PANEL PLUSon Adenovirus Not detected Normal NOT DETECTED The [facility] Comment on above: Performed By: #### R SPLUS #### [facility] [address] [place] [address] Dr. Khurram Flynn. Parapertusis Not detected Normal NOT DETECTED The [facility] Comment on above: Performed By: #### R SPLUS #### [facility] [address] [place] [address] Dr. Khurram Flynn. Pertussis Not detected Normal NOT DETECTED The [facility] Comment on above: Performed By: #### R SPLUS #### [facility] [address] [place] [address] Dr. Khurram Montiel Chlamydia Pneumoniae Not detected Normal NOT DETECTED The [facility] Comment on above: Performed By: #### R SPLUS #### [facility] [address] [place] [address] Dr. Khurram Montiel Coronavirus 229E Not detected Normal NOT DETECTED The [facility] Comment on above: Performed By: #### R SPLUS #### [facility] [address] [place] [address] Dr. Khurram Montiel Coronavirus HKU1 Not detected Normal NOT DETECTED The [facility] Comment on above: Performed By: #### R SPLUS #### [facility] [address] [place] [address] Dr. Khurram Montiel Coronavirus NL63 Not detected Normal NOT DETECTED The [facility] Comment on above: Performed By: #### R SPLUS #### [facility] [address] [place] [address] Dr. Khurram Montiel Coronavirus OC43 Not detected Normal NOT DETECTED The [facility] Comment on above: Performed By: #### R SPLUS #### [facility] [address] [address] [address] Khurram Montiel Influenza A H1 2009 Not detected Normal NOT DETECTED [facility] Comment on above: Performed By: #### R SPLUS #### [facility] [address] [place] [address] Dr. Khurram Montiel Influenza A H3 Not detected Normal NOT DETECTED The [facility] Comment on above: Performed By: #### R SPLUS #### [facility] [address] [address] [address] Khurram Montiel Influenza B Not detected Normal NOT DETECTED The [facility] Comment on above: Performed By: #### R SPLUS #### [facility] [address] [place] [address] Dr. Khurram Montiel Metapneumovirus Not detected Normal NOT DETECTED [facility] Comment on above: Performed By: #### R SPLUS #### [facility] [address] [place] [address] Dr. Khurram Montiel Mycoplas. Pneumoniae Not detected Normal NOT DETECTED The [facility] Comment on above: Performed By: #### R SPLUS #### [facility] [address] [place] [address] Dr. Khurram Montiel Parainfluenza 1 Not detected Normal NOT DETECTED [facility] Comment on above: Performed By: #### R SPLUS #### [facility] [address] [place] [address] Dr. Khurram Montiel Parainfluenza 2 Not detected Normal NOT DETECTED [facility] Comment on above: Performed By: #### R SPLUS #### [facility] [address] [place] [address] Dr. Khurram Montiel Parainfluenza 3 Not detected Normal NOT DETECTED [facility] Comment on above: Performed By: #### R SPLUS #### [facility] [address] [place] [address] Dr. Khurram Montiel Parainfluenza 4 Not detected Normal NOT DETECTED [facility] Comment on above: Performed By: #### R SPLUS #### [facility] [address] [place] [address] Dr. Khurram Montiel Rhino/Enterovirus Not detected Normal NOT DETECTED The [facility] Comment on above: Performed By: #### R SPLUS #### [facility] [address] [place] [address] Dr. Khurram Montiel RP2 Header 1 RESPIRATORY PANEL: VIRUSES Normal The [facility] Comment on above: Performed By: #### R SPLUS #### [facility] [address] [place] [address] Dr. Khurram Montiel RP2 Header 2 RESPIRATORY PANEL: BACTERIA Normal [facility] Comment on above: Performed By: #### R SPLUS #### [facility] [address] [place] [address] Dr. Khurram Montiel RSV Not detected Normal NOT DETECTED [facility] Comment on above: Performed By: #### R SPLUS #### [facility] [address] [place] [address] Dr. Khurram Montiel SARS-CoV-2 (COVID-19) RNA OKSANA+probe Ql (Unsp spec) Not detected Normal NOT DETECTED The [facility] Comment on above: Performed By: #### R SPLUS #### [facility] [address] [place] [address] Dr. Khurram Montiel COVID Quick Testingon 2020 Result Negative [facility] Other XR DEXA BONE DENSITYon 06-15 XR DEXA BONE DENSITY EXAMINATION: XR DEXA BONE DENSITY, 06/15/2021 7:54 AM EDT HISTORY: Adult health examination COMPARISON: 2018, 2016, 2011 TECHNIQUE: Dual-energy X-ray absorptiometry (DEXA) bone density study performed for the axial skeleton. FINDINGS: Bone mineral density AP spine L2-L4 measures 1.056 g/sq cm. Young adult T score -1.2. WHO classification: Osteopenia. Lowest bone mineral density right femoral neck measuring 0.762 g/sq cm. T score -2.0. WHO classification: Osteopenia IMPRESSION: Osteopenia. Moderate fracture risk Electronically authenticated by: MOISES BAH Date: 2021-06-15 08:27 Normal [facility] Vital Signs Date Time Vital Sign Value Performing Clinician Facility 03-18-2025 08:36-0400 Diastolic blood pressure 70 mm[Hg] Tonia Hemmer PA Work Phone: [facility] 03-18-2025 08:36-0400 Systolic blood pressure 128 mm[Hg] Tonia Hemmer PA Work Phone: [facility] 03-18-2025 08:23-0400 Body height 166.4 cm Tonia Hemmer PA Work Phone: [facility] 03-18-2025 08:23-0400 Body mass index (BMI) [Ratio] 24.58 kg/m2 Tonia Hemmer PA Work Phone: [facility] 03-18-2025 08:23-0400 Body weight 68.04 kg Tonia Hemmer PA Work Phone: [facility] 03-18-2025 08:23-0400 Heart rate 60 /min Tonia Hemmer PA Work Phone: [facility] 03-18-2025 08:23-0400 SaO2% (BldA) [Mass fraction] 97 % Tonia Hemmer PA Work Phone: [facility] 01-06-2025 09:37-0400 Body height 166.4 cm Tonia Hemmer PA Work Phone: [facility] 01-06-2025 09:37-0400 Body mass index (BMI) [Ratio] 25.24 kg/m2 Tonia Hemmer PA Work Phone: [facility] 01-06-2025 09:37-0400 Body temperature 97.7 [degF] Tonia Hemmer PA Work Phone: [facility] 01-06-2025 09:37-0400 Body weight 69.85 kg Tonia Hemmer PA Work Phone: [facility] 01-06-2025 09:37-0400 Diastolic blood pressure 64 mm[Hg] Tonia Hemmer PA Work Phone: [facility] 01-06-2025 09:37-0400 Heart rate 64 /min Tonia Hemmer PA Work Phone: [facility] 01-06-2025 09:37-0400 Respiratory rate 16 /min Tonia Hemmer PA Work Phone: [facility] 01-06-2025 09:37-0400 SaO2% (BldA) [Mass fraction] 99 % Tonia Hemmer PA Work Phone: [facility] 01-06-2025 09:37-0400 Systolic blood pressure 122 mm[Hg] Tonia Hemmer PA Work Phone: [facility] 09-12-2024 13:07-0500 Body height 166.4 cm Tonia Hemmer PA Work Phone: [facility] 09-12-2024 13:07-0500 Body mass index (BMI) [Ratio] 25.07 kg/m2 Tonia Hemmer PA Work Phone: [facility] 09-12-2024 13:07-0500 Body weight 69.4 kg Tonia Hemmer PA Work Phone: [facility] 09-12-2024 13:07-0500 Diastolic blood pressure 72 mm[Hg] Tonia Hemmer PA Work Phone: [facility] 09-12-2024 13:07-0500 Heart rate 55 /min Tonia Hemmer PA Work Phone: [facility] 09-12-2024 13:07-0500 SaO2% (BldA) [Mass fraction] 98 % Tonia Hemmer PA Work Phone: [facility] 09-12-2024 13:07-0500 Systolic blood pressure 108 mm[Hg] Tonia Hemmer PA Work Phone: [facility] 09-09-2024 09:47-0500 Body mass index (BMI) [Ratio] 24.75 kg/m2 Tonia Hemmer PA Work Phone: [facility] 09-09-2024 09:47-0500 Body weight 68.49 kg Tonia Hemmer PA Work Phone: [facility] 09-09-2024 09:47-0500 Diastolic blood pressure 70 mm[Hg] Otnia Hemmer PA Work Phone: [facility] 09-09-2024 09:47-0500 Heart rate 55 /min Tonia Hemmer PA Work Phone: [facility] 09-09-2024 09:47-0500 Respiratory rate 17 /min Tonia Hemmer PA Work Phone: [facility] 09-09-2024 09:47-0500 SaO2% (BldA) [Mass fraction] 99 % Tonia Hemmer PA Work Phone: [facility] 09-09-2024 09:47-0500 Systolic blood pressure 100 mm[Hg] Tonia Hemmer PA Work Phone: [facility] 09-06-2024 09:03-0500 Body mass index (BMI) [Ratio] 25.4 kg/m2 Meche Rodriguez CLINICAL TRANSFORMATION SPECIALIST Work Phone: [facility] 09-06-2024 09:03-0500 Body temperature 97.81 [degF] Meche Ricardo CLINICAL TRANSFORMATION SPECIALIST Work Phone: [facility] 09-06-2024 09:03-0500 Body weight 70.31 kg Meche Rodriguez CLINICAL TRANSFORMATION SPECIALIST Work Phone: [facility] 09-06-2024 09:03-0500 Diastolic blood pressure 68 mm[Hg] Meche Rodriguez CLINICAL TRANSFORMATION SPECIALIST Work Phone: [facility] 09-06-2024 09:03-0500 Heart rate 78 /min Meche Ricardo CLINICAL TRANSFORMATION SPECIALIST Work Phone: [facility] 09-06-2024 09:03-0500 SaO2% (BldA) [Mass fraction] 98 % Meche Rodriguez CLINICAL TRANSFORMATION SPECIALIST Work Phone: [facility] 09-06-2024 09:03-0500 Systolic blood pressure 114 mm[Hg] Meche Rodriguez CLINICAL TRANSFORMATION SPECIALIST Work Phone: [facility] 09-04-2024 13:38-0500 Body height 166.4 cm Katt Love CLINICAL TRANSFORMATION SPECIALIST Work Phone: [facility] 09-04-2024 13:38-0500 Body mass index (BMI) [Ratio] 24.97 kg/m2 Katt Love CLINICAL TRANSFORMATION SPECIALIST Work Phone: [facility] 09-04-2024 13:38-0500 Body weight 69.13 kg Katt Love CLINICAL TRANSFORMATION SPECIALIST Work Phone: [facility] 09-04-2024 13:38-0500 Diastolic blood pressure 77 mm[Hg] Katt Love CLINICAL TRANSFORMATION SPECIALIST Work Phone: [facility] 09-04-2024 13:38-0500 Heart rate 78 /min Katt Love CLINICAL TRANSFORMATION SPECIALIST Work Phone: [facility] 09-04-2024 13:38-0500 Respiratory rate 17 /min Katt Love CLINICAL TRANSFORMATION SPECIALIST Work Phone: [facility] 09-04-2024 13:38-0500 SaO2% (BldA) [Mass fraction] 97 % Katt Love CLINICAL TRANSFORMATION SPECIALIST Work Phone: [facility] 09-04-2024 13:38-0500 Systolic blood pressure 132 mm[Hg] Katt Love CLINICAL TRANSFORMATION SPECIALIST Work Phone: [facility] 08-06-2024 09:33-0500 Body mass index (BMI) [Ratio] 25.01 kg/m2 Alba Ojeda CLINICAL TRANSFORMATION SPECIALIST Work Phone: [facility] 08-06-2024 09:33-0500 Body weight 69.22 kg Alba Ojeda CLINICAL TRANSFORMATION SPECIALIST Work Phone: [facility] 08-06-2024 09:33-0500 Diastolic blood pressure 75 mm[Hg] Alba Ojeda CLINICAL TRANSFORMATION SPECIALIST Work Phone: [facility] 08-06-2024 09:33-0500 Heart rate 67 /min Alba Ojeda CLINICAL TRANSFORMATION SPECIALIST Work Phone: [facility] 08-06-2024 09:33-0500 Respiratory rate 16 /min Alba Ojeda CLINICAL TRANSFORMATION SPECIALIST Work Phone: [facility] 08-06-2024 09:33-0500 SaO2% (BldA) [Mass fraction] 97 % Alba Ojeda CLINICAL TRANSFORMATION SPECIALIST Work Phone: [facility] 08-06-2024 09:33-0500 Systolic blood pressure 110 mm[Hg] Alba Ojeda CLINICAL TRANSFORMATION SPECIALIST Work Phone: [facility] 11-07-2023 11:35-0500 Body mass index (BMI) [Ratio] 24.78 kg/m2 Tonia Hemmer PA Work Phone: [facility] 11-07-2023 11:35-0500 Body temperature 97.9 [degF] Tonia Hemmer PA Work Phone: [facility] 11-07-2023 11:35-0500 Body weight 68.58 kg Tonia Hemmer PA Work Phone: [facility] 11-07-2023 11:35-0500 Diastolic blood pressure 72 mm[Hg] Tonia Hemmer PA Work Phone: [facility] 11-07-2023 11:35-0500 Heart rate 59 /min Tonia Hemmer PA Work Phone: [facility] 11-07-2023 11:35-0500 Respiratory rate 16 /min Tonia Hemmer PA Work Phone: [facility] 11-07-2023 11:35-0500 SaO2% (BldA) [Mass fraction] 99 % Tonia Hemmer PA Work Phone: [facility] 11-07-2023 11:35-0500 Systolic blood pressure 112 mm[Hg] Tonia Hemmer PA Work Phone: [facility] 07-15-2021 14:00-0400 Body height 167.64 cm Shannon Dotson Other [employer] Other 07-15-2021 14:00-0400 Body mass index (BMI) [Ratio] 24.21 kg/m2 Shannon Dotson Other [employer] Other 07-15-2021 14:00-0400 Body temperature 97.5 [degF] Shannon Dotson Other [employer] Other 07-15-2021 14:00-0400 Body weight 68.04 kg Shannon Dotson Other [employer] Other 07-15-2021 14:00-0400 Respiratory rate 18 /min Shannon Dotson Other [employer] Other 07-15-2021 14:00-0400 SaO2% (BldA) [Mass fraction] 97 % Shannon Dotson Other [employer] Other Encounters Encounter Date Encounter Type Care Provider Facility Start: 03-18-2025 End: 03-18-2025 Office outpatient visit 15 minutes Tonia Flores PA Work Phone: [facility] Comment on above: Benign essential hyp ertension (Primary Dx); Acute seasonal allergic rhinitis due to pollen Start: 03-18-2025 End: 03-18-2025 ambulatory TONIA FLORES Not Available Start: 01-06-2025 End: 01-06-2025 Bamboo flowsheet Tonia Flores PA Work Phone: [facility] Start: 01-06-2025 End: 01-06-2025 Bamboo flowsheet Tonia Flores PA Work Phone: [facility] Start: 01-06-2025 End: 01-06-2025 Office outpatient visit 15 minutes Tonia Flores PA Work Phone: [facility] Comment on above: Acute non-recurrent ethmoidal sinusitis (Primary Dx) Start: 01-06-2025 End: 01-06-2025 ambulatory TONIA FLORES Not Available Start: 11-18-2024 End: 11-18-2024 Bamboo flowsheet Toyin Zuleta OIL DEVELOPER-FOURDRINIER WIRE WEAVER Work Phone: [facility] Start: 11-18-2024 End: 11-18-2024 Bamboo flowsheet Toyin Zuleta OIL DEVELOPER-[employer]DR[employer]IER WIRE WEAVER Work Phone: [facility] Start: 11-18-2024 End: 11-18-2024 Office outpatient visit 15 minutes Toyin Zuleta OIL DEVELOPER-[employer]IER WIRE WEAVER Work Phone: [facility] Comment on above: Seborrheic keratosis ; Actinic keratosis; Melanocytic nevus of trunk; Melanocytic nevus of left upper extremity; Melanocytic nevus of right upper extremity; Neurofibroma; Sebaceous hyperplasia of face; Onycholysis due to Pseudomonas infection Start: 11-18-2024 End: 11-18-2024 ambulatory TOYIN ZULETA Not Available Start: 09-16-2024 End: 09-16-2024 Telephone encounter Tonia THOMSON Work Phone: [facility] Start: 09-12-2024 End: 09-12-2024 Bamboo flowsheet Tonia THOMSON Work Phone: [facility] Start: 09-12-2024 End: 09-12-2024 Bamboo flowsheet Tonia THOMSON Work Phone: [facility] Start: 09-12-2024 End: 09-12-2024 Patient encounter procedure Tonia THOMSON Work Phone: [facility] Comment on above: Medicare annual well ness visit, subsequent (Primary Dx); Hypersomnia; Obstructive sleep apnea syndrome; Seizure (CMS/HCC); Benign essential hypertension (CMS/HCC); Diverticulosis; Cervical spondylosis; Age-related osteoporosis without current pathological fracture (CMS/HCC); Acute seasonal allergic rhinitis due to pollen; Allergic conjunctivitis of both eyes; Hypercholesterolemia (CMS/HCC); Macular degeneration of both eyes, unspecified type; ACP (advance care planning) Start: 09-12-2024 End: 09-12-2024 ambulatory TONIA FLORES Not Available Start: 09-09-2024 End: 09-09-2024 Bamboo flowsheet Tonia THOMSON Work Phone: [facility] Start: 09-09-2024 End: 09-09-2024 Bamboo flowsheet Tonia Ness Debora PA Work Phone: [facility] Start: 09-09-2024 End: 09-09-2024 Office outpatient visit 15 minutes Tonia Arzola Debora PA Work Phone: [facility] Comment on above: Rib contusion, left, subsequent encounter (Primary Dx) Start: 09-09-2024 End: 09-09-2024 ambulatory TONIA FLORES Not Available Start: 09-06-2024 End: 09-06-2024 Office outpatient visit 25 minutes Meche Rodriguez CLINICAL TRANSFORMATION SPECIALIST Work Phone: [facility] Comment on above: Fall, initial encoun ter (Primary Dx); Rib pain on left side Start: 09-06-2024 End: 09-06-2024 ambulatory MECHE RODRIGUEZ Not Available Start: 09-04-2024 End: 09-04-2024 Bamboo flowsheet Katt Love CLINICAL TRANSFORMATION SPECIALIST Work Phone: [facility] Start: 09-04-2024 End: 09-04-2024 Bamboo flowsheet Katt Love CLINICAL TRANSFORMATION SPECIALIST Work Phone: [facility] Start: 09-04-2024 End: 09-04-2024 Office outpatient visit 25 minutes Ktat Love CLINICAL TRANSFORMATION SPECIALIST Work Phone: [facility] Comment on above: Acute frontal sinusi tis, recurrence not specified (Primary Dx) Start: 09-04-2024 End: 09-04-2024 ambulatory KATT LOVE Not Available Start: 08-06-2024 End: 08-06-2024 Bamboo flowsheet Alba Ojeda CLINICAL TRANSFORMATION SPECIALIST Work Phone: [facility] Start: 08-06-2024 End: 08-06-2024 Bamboo flowsheet Alba Ojeda CLINICAL TRANSFORMATION SPECIALIST Work Phone: [facility] Start: 08-06-2024 End: 08-06-2024 Patient encounter procedure Alba Ojeda CLINICAL TRANSFORMATION SPECIALIST Work Phone: [facility] Comment on above: Acute non-recurrent pansinusitis (Primary Dx); Unspecified convulsions (CMS/HCC) Start: 08-06-2024 End: 08-06-2024 ambulatory ALBA OJEDA Not Available Start: 06-17-2024 End: 06-17-2024 Bamboo flowsheet Toyin A Felter OIL DEVELOPER-F[employer]IER WIRE WEAVER Work Phone: [facility] Start: 06-17-2024 End: 06-17-2024 Bamboo flowsheet Toyin A Felter OIL DEVELOPER-F[employer] W[employer] WEAVER Work Phone: [facility] Start: 06-17-2024 End: 06-17-2024 Office outpatient visit 10 minutes Toyin A Felter OIL DEVELOPER-F[employer]DR[employer]IER WIRE WEAVER Work Phone: [facility] Comment on above: Onycholysis due to P seudomonas infection Start: 06-17-2024 End: 06-17-2024 ambulatory TOYIN A FELTER Not Available Start: 06-03-2024 End: 06-03-2024 Bamboo flowsheet Toyin A Felter OIL DEVELOPER-F[employer]IER WIRE WEAVER Work Phone: [facility] Start: 06-03-2024 End: 06-03-2024 Bamboo flowsheet Toyin A Felter OIL DEVELOPER-F[employer]DRINIER WIRE WEAVER Work Phone: [facility] Start: 06-03-2024 End: 06-03-2024 Office outpatient visit 15 minutes Toyin A Felter OIL DEVELOPER-F[employer] W[employer] WEAVER Work Phone: [facility] Comment on above: Onycholysis due to P seudomonas infection Start: 06-03-2024 End: 06-03-2024 ambulatory TOYIN A FELTER Not Available Start: 05-14-2024 End: 05-14-2024 Bamboo flowsheet Toyin A Felter OIL DEVELOPER-F[employer]IER WIRE WEAVER Work Phone: [facility] Start: 05-14-2024 End: 05-14-2024 Bamboo flowsheet Toyin A Felter OIL DEVELOPER-F[employer]IER WIRE WEAVER Work Phone: [facility] Start: 05-14-2024 End: 05-14-2024 Telephone encounter Toyin A Felter OIL DEVELOPER-F[employer]DRINIER WIRE WEAVER Work Phone: [facility] Start: 05-14-2024 End: 05-14-2024 Office outpatient visit 25 minutes Toyin Zuleta OIL DEVELOPER-F[employer]DRINIER W[employer] WEAVER Work Phone: [facility] Comment on above: Onycholysis due to P seudomonas infection (Primary Dx) Start: 05-14-2024 End: 05-14-2024 ambulatory TOYIN ZULETA Not Available Start: 11-07-2023 Bamboo flowsheet Tonia Arzola Hemme r PA Work Phone: [facility] Start: 11-07-2023 Bamboo flowsheet Tonia M Hemme r PA Work Phone: [facility] Start: 11-07-2023 End: 11-07-2023 Office outpatient visit 15 minutes Tonia Flores PA Work Phone: [facility] Comment on above: Acute recurrent fron tracy sinusitis (Primary Dx) Start: 03-16-2022 End: 03-17-[address] HELEN MEDINA Facility:[facility] Start: 03-01-2022 End: 03-01-[address] HELEN MEDINA Facility:[facility] Start: 07-15-2021 End: 07-15-2021 ambulatory Shannon Dotson Other [employer] Other Start: 07-15-2021 Office outpatient vi sit 15 minutes Shannon Dotson [facility] [place] Start: 06-18-2021 Encounter for genera l adult medical examination without abnormal findings ALBA OJEDA [facility] Start: 06-15-2021 End: 06-16-[address] HELEN MEDINA Facility:[facility] Start: 06-15-2021 End: 06-16-2021 Encounter for general adult medical examination without abnormal findings DR HELEN MEDINA Facility:[facility] Procedures Date Procedure Procedure Detail Performing Clinician Start: 11-18-2024 CRYOTHERAPY SKIN LESION Toyin Zuleta OIL DEVELOPER-F[employer]IER WIRE WEAVER Work Phone: Plan of Treatment Date Care Activity Detail Author Start: 11-18-2025 End: 11-18-2025 Patient encounter procedure 11/18/2025 9:20 AM EST Office Visit [facility] [address] [place] [address] Toyin Zuleta APRN-FOURDRINIER WIRE WEAVER [address] [place] [address] [facility] Start: 09-12-2025 Medicare Annual Well ness (AWV) Medicare Annual Wellness (AWV) [facility] Start: 09-08-2025 End: 09-08-2025 Patient encounter procedure 09/08/2025 8:00 AM EST Office Visit [facility] [address] [place] [address] Tonia Flores PA [address] [place] [address] [facility] Start: 01-06-2025 End: 01-06-2025 Patient encounter procedure 01/06/2025 9:30 AM EDT Office Visit [facility] [address] [place] [address] Tonia Flores PA [address] [place] [address] Arrived [facility] Comment on above: Arrived Start: 11-18-2024 End: 11-18-2024 Patient encounter procedure [facility] Comment on above: Arrived Start: 09-12-2024 End: 09-12-2024 Patient encounter procedure [facility] Comment on above: Arrived Start: 09-09-2024 End: 09-09-2024 Patient encounter procedure 09/09/2024 10:00 AM EST Office Visit [facility] [address] [place] [address] Tonia Flores, PA [address] [place] [address] Arrived [facility] Comment on above: Arrived Start: 09-04-2024 End: 09-04-2024 Patient encounter procedure 09/04/2024 2:00 PM EST Office Visit [facility] [address] [place] [address] Katt Love, CLINICAL TRANSFORMATION SPECIALIST [address] [place] [address] Arrived [facility] Comment on above: Arrived Start: 06-17-2024 End: 06-17-2024 Patient encounter procedure [facility] Comment on above: Arrived Start: 06-06-2024 Medicare Annual Well ness (AWV) Medicare Annual Wellness (AWV) [facility] Start: 06-03-2024 End: 06-03-2024 Patient encounter procedure 06/03/2024 9:20 AM EDT Office Visit [facility] [address] [place] [phone] Toyin Zuleta, OIL DEVELOPER-FOURDRINIER WIRE WEAVER [address] [place] [address] Arrived [facility] Comment on above: Arrived Start: 05-26-2024 Influenza vaccination Influenza Vacc ine (#1) [facility] Start: 05-14-2024 End: 05-14-2024 Patient encounter procedure 05/14/2024 10:05 AM EDT Office Visit [facility] [address] [place] [address] Toyin Zuleta, OIL DEVELOPER-F[employer]IER W[employer] WEAVER [address] [place] [address] Arrived [facility] Comment on above: Arrived Start: 12-05-2023 End: 12-05-2023 Patient encounter procedure 12/05/2023 9:00 AM EDT Office Visit [facility] [address] [place] [address] Tonia Flores, PA [address] [place] [address] [facility] Start: 11-14-2023 End: 11-14-2023 Patient encounter procedure 11/14/2023 9:40 AM EST Office Visit [facility] [address] [place] [phone] Toyin Zuleta APRN-FOURDRINIER WIRE WEAVER [address] [place] [address] [facility] Start: 11-07-2023 End: 11-07-2023 Patient encounter procedure 11/07/2023 11:30 AM EST Office Visit [facility] [address] [place] [phone] Tonia Flores PA [address] [place] [address] Arrived [facility] Comment on above: Arrived Immunizations Immunization Date Immunization Notes Care Provider [facility] 06-02-2024 influenza, high dose seasonal, preservative-free Tonia THOMSON Work Phone: [facility] 06-02-2024 influenza virus vacc ine, unspecified formulation Toyin Zuleta OIL DEVELOPER-F[employer]INIER WIRE WEAVER Work Phone: [facility] 09-08-2023 RSV, recombinant, protein subunit RSVpreF, adjuvant reconstitu, 120mcg/0.5mL, PF (Arexvy) Tonia THOMSON Work Phone: [facility] 06-13-2023 Pfizer Purple Cap SARS-CoV-2 Vaccination Tonia THOMSON Work Phone: [facility] 06-06-2023 tetanus toxoid, redu matthew diphtheria toxoid, and acellular pertussis vaccine, adsorbed Tonia THOMSON Work Phone: [facility] Work Phone: 05-30-2023 Influenza, Seasonal, Quadrivalent, Adjuvanted Tonia THOMSON Work Phone: [facility] 05-30-2023 influenza virus vacc ine, unspecified formulation Toyin Zuleta OIL DEVELOPER-FOURDRINIER WIRE WEAVER Work Phone: [facility] 06-03-2022 Moderna Bivalent Trammell ster Vaccination Tonia Hemmer PA Work Phone: [facility] 05-21-2022 Influenza, High-dose Seasonal, Quadrivalent, Preservative Free Tonia Hemmer PA Work Phone: [facility] 05-18-2021 Influenza, High-dose Seasonal, Quadrivalent, Preservative Free Tonia Hemmer PA Work Phone: [facility] 09-09-2018 zoster vaccine recombinant Tonia Hemmer PA Work Phone: [facility] 06-04-2018 influenza, high dose seasonal, preservative-free Tonia Hemmer PA Work Phone: [facility] 04-20-2018 zoster vaccine recombinant Tonia Hemmer PA Work Phone: [facility] 04-10-2018 pneumococcal polysaccharide vaccine, 23 valent Tonia Hemmer PA Work Phone: [facility] 05-23-2017 influenza, high dose seasonal, preservative-free Tonia Hemmer PA Work Phone: [facility] 06-29-2016 influenza, injectabl e, quadrivalent, contains preservative Tonia Hemmer PA Work Phone: [facility] 09-08-2014 pneumococcal conjuga te vaccine, 13 valent Tonia Hemmer PA Work Phone: [facility] 08-01-2013 influenza, high dose seasonal, preservative-free Tonia Hemmer PA Work Phone: [facility] 09-08-2012 zoster vaccine, live Tonia H emmer PA Work Phone: [facility] 03-30-2011 zoster vaccine, live Tonia H emmer PA Work Phone: [facility] Payers Date Payer Category Payer Private Health Insurance [employer] [id number] 2021 Unknown [employer] [id number] 2021-Present [address] [place] [address] [id number] 2006 Medicare [id number] 1959 Medicare [id number] 1959 Unknown [id number] 1938 Unknown [id number] [id number]. 593 1938 Unknown [id number] 2.16.840.1.358618.3.579.2. 593 1938 Unknown [id number] 2.16.840.1.881042.3.579.2. 593 1938 Unknown [id number] [id number]. 1259 1938 Unknown [id number] 2.16.840.1.246683.3.579.2. 1259 1938 Unknown [id number] 2.16.840.1.513809.3.579.2. 1259 1938 Unknown [id number] 2.16.840.1.040930.3.579.2. 1259 1938 Unknown [id number] 2.16.840.1.835137.3.579.2. 1259 1938 Unknown [id number] 2.16.840.1.842313.3.579.2. 1259 1938 Unknown [id number] 2.16.840.1.893480.3.579.2. 1259 1938 Unknown [id number] 2.16.840.1.965665.3.579.2. 1259 1938 Unknown [id number] 2.16.840.1.019235.3.579.2. 9 1938 Unknown [id number] 2.16.840.1.812831.3.579.2. 1259 1938 Unknown [id number] 2.16.840.1.884575.3.579.2. 1259 1938 Unknown [id number] [id number]. 1259 Social History Date Type Detail Facility Start: 08-24-2023 End: 03-18-2025 Sex Assigned At [facility] [employer] Other Start: 02-16-2023 Tobacco smoking status NHIS Never smoked tobacco [facility] Start: 02-16-2023 Tobacco use and exposure Smokeless tobacco non-user [facility] Start: 08-24-2023 End: 03-18-2025 Alcohol intake Lifetime non-drinker (finding) [facility] Start: 08-24-2023 End: 03-18-2025 History of Social function [facility] Start: 1940 Sex Assigned At [place] on file [place] [facility] Functional Status Date Assessment Result Facility 03-18-2025 Patient Health Quest ionnaire 2 item (PHQ-2) [Reported] [facility] 01-06-2025 Patient Health Quest ionnaire 2 item (PHQ-2) [Reported] [facility] Clinical Notes 07-15-2021 to 03-18-2025 ALIX Asher - 03/18/2025 8:30 AM ALIX Bourgeois - 01/06/2025 9:30 AM EDTTSANJAY Monson - 09/16/2024 1:26 PM ALIX Gong - 09/12/2024 1:00 PM EST Note Date & Type Note Facility 03-18-2025 History of Presen t illness Narrative Subjective Patient ID: Mei Stroud is a 85 y.o. female who presents for Hypertension. Mei is present today for follow up of hypertension. Denies chest pain, SOB, blurry vision, headaches. Does not check her BP's at home. Currently on Metoprolol. Pt stated she now is getting injections in her eyes for the degeneration Over the past 2 weeks, how often have you been bothered by any of the following problems? Little interest or pleasure in doing things: Not at all Feeling down, depressed, or hopeless: Not at all Patient Health Questionnaire-2 Score: 0 Current Outpatient Medications on File Prior to Visit Medication Sig Dispense Refill alendronate (Fosamax) 70 MG tablet TAKE 1 TAB 30 MIN BEFORE FIRST FOOD/BEVERAGE/MEDICINE OF THE DAY WITH PLAIN WATER ONCE A WEEK 12 tablet 3 azelastine (Astelin) 0.1 % nasal spray Administer 1 spray into each nostril in the morning and 1 spray before bedtime. cetirizine (ZyrTEC) 10 MG tablet Take 10 mg by mouth in the morning. cromolyn (Opticrom) 4 % ophthalmic solution Administer 1 drop into both eyes in the morning and 1 drop at noon and 1 drop in the evening and 1 drop before bedtime. 30 mL 3 fluticasone (Flonase) 50 MCG/ACT nasal spray Administer 1 spray into each nostril Daily Shake gently. Before first use, prime pump. After use, clean tip and replace cap. hydrocortisone 2.5 % cream Apply topically 2 (two) times a day as needed (Rash) Apply thin layer to affected areas bid prn for flares 30 g 3 metoprolol tartrate (Lopressor) 50 MG tablet TAKE 1 TABLET TWICE DAILY WITH FOOD 200 tablet 3 Multiple Vitamins-Minerals (Eye Vitamins) capsule Orally No current facility-administered medications on file prior to visit. I have reviewed and reconciled the history and medication list with the patient today. Allergies Allergen Reactions Other Other Reaction(s): Unknown Pollen Extract Rash Social History Tobacco Use Smoking status: Never Smokeless tobacco: Never Vaping Use Vaping status: Never Used Substance Use Topics Alcohol use: Never Drug use: Never Family History Adopted: Yes Problem Relation Name Age of Onset Melanoma Neg Hx Past Medical History: Diagnosis Date Actinic keratosis Allergic Breast cancer (HCC) 2006 Cervical strain Hypertension Macular degeneration Migraine headache Myopic degeneration 2024 JEREMY (obstructive sleep apnea) Osteopenia Osteoporosis Past Surgical History: Procedure Laterality Date BREAST BIOPSY 2007 CATARACT EXTRACTION Bilateral [address] dr tsang COLONOSCOPY 01/[address] brewster ROTATOR CUFF REPAIR Left Visit Vitals BP 128/70 (BP Location: Left arm) Pulse 60 Ht 5' 5.5 Wt 150 lb SpO2 97% BMI 24.58 kg/m Smoking Status Never BSA 1.77 m Review of Systems Constitutional: Negative for chills, fatigue and fever. HENT: Intermittent allergy symptoms. Respiratory: Negative for cough, shortness of breath and wheezing. Cardiovascular: Negative for chest pain, palpitations and leg swelling. Gastrointestinal: Negative for abdominal pain, constipation, diarrhea, nausea and vomiting. Skin: Negative for rash. Objective Physical Exam Constitutional: General: She is not in acute distress. Appearance: Normal appearance. She is well-developed. HENT: Head: Normocephalic and atraumatic. Eyes: General: No scleral icterus. Conjunctiva/sclera: Conjunctivae normal. Cardiovascular: Rate and Rhythm: Normal rate and regular rhythm. Heart sounds: Normal heart sounds. No murmur heard. Pulmonary: Effort: Pulmonary effort is normal. No respiratory distress. Breath sounds: Normal breath sounds. No wheezing, rhonchi or rales. Skin: General: Skin is warm and dry. Neurological: General: No focal deficit present. Mental Status: She is alert and oriented to person, place, and time. Psychiatric: Mood and Affect: Mood normal. Behavior: Behavior normal. Assessment/Plan Diagnoses and all orders for this visit: Benign essential hypertension Patient's blood pressure is currently well controlled. Continue with current medication and I will continue to monitor. Goal BP remains less than 130/80. Acute seasonal allergic rhinitis due to pollen Advised pt she can try a different allergy medication to see if it might be more effective for her. Continue nasal sprays as prescribed. Follow up in about 6 months (around 09/15/2025) for Medicare Wellness Visit. documented in this encounter [facility] 01-06-2025 History of Presen t illness Narrative Images from the original note were not included. Subjective Patient ID: Mei Stroud is a 84 y.o. female who presents for possible sinus infection. Mei is present today for evaluation of possible sinus infection. Admits sinus pressure, headaches, nasal congestion, sneezing, runny nose, bilateral ear discomfort off/on, fatigue. She has been sick for about a week and he has been taking OTC Dayquil and Nyquil. Current Outpatient Medications on File Prior to Visit Medication Sig Dispense Refill alendronate (Fosamax) 70 MG tablet TAKE 1 TAB 30 MIN BEFORE FIRST FOOD/BEVERAGE/MEDICINE OF THE DAY WITH PLAIN WATER ONCE A WEEK 12 tablet 3 azelastine (Astelin) 0.1 % nasal spray Administer 1 spray into each nostril in the morning and 1 spray before bedtime. cetirizine (ZyrTEC) 10 MG tablet Take 10 mg by mouth in the morning. cromolyn (Opticrom) 4 % ophthalmic solution Administer 1 drop into both eyes in the morning and 1 drop at noon and 1 drop in the evening and 1 drop before bedtime. 30 mL 3 hydrocortisone 2.5 % cream Apply topically 2 (two) times a day as needed (Rash) Apply thin layer to affected areas bid prn for flares 30 g 3 metoprolol tartrate (Lopressor) 50 MG tablet TAKE 1 TABLET TWICE DAILY WITH FOOD 200 tablet 3 Multiple Vitamins-Minerals (Eye Vitamins) capsule Orally No current facility-administered medications on file prior to visit. I have reviewed and reconciled the history and medication list with the patient today. Allergies Allergen Reactions Other Other Reaction(s): Unknown Pollen Extract Rash Social History Tobacco Use Smoking status: Never Smokeless tobacco: Never Vaping Use Vaping status: Never Used Substance Use Topics Alcohol use: Never Drug use: Never Family History Adopted: Yes Problem Relation Name Age of Onset Melanoma Neg Hx Past Medical History: Diagnosis Date Actinic keratosis Allergic Breast cancer (CMS/HCC) 2006 Cervical strain Hypertension (CMS/HCC) Macular degeneration Migraine headache (CMS/HCC) Myopic degeneration 2024 JEREMY (obstructive sleep apnea) Osteopenia Osteoporosis (CMS/HCC) Past Surgical History: Procedure Laterality Date BREAST BIOPSY 2006 CATARACT EXTRACTION Bilateral [address] dr tsang COLONOSCOPY 01/[address] brewster ROTATOR CUFF REPAIR Left Visit Vitals BP 122/64 Pulse 64 Temp 97.7 F Resp 16 Ht 5' 5.5 Wt 154 lb SpO2 99% BMI 25.24 kg/m Smoking Status Never BSA 1.8 m Review of Systems Constitutional: Positive for fatigue. Negative for chills and fever. HENT: Positive for congestion, ear pain, rhinorrhea, sinus pressure, sinus pain and sneezing. Respiratory: Negative for cough, shortness of breath and wheezing. Cardiovascular: Negative for chest pain, palpitations and leg swelling. Gastrointestinal: Negative for abdominal pain, constipation, diarrhea, nausea and vomiting. Skin: Negative for rash. Neurological: Positive for headaches. Objective Physical Exam Constitutional: General: She is not in acute distress. Appearance: Normal appearance. She is well-developed. HENT: Head: Normocephalic and atraumatic. Right Ear: Tympanic membrane and ear canal normal. Left Ear: Tympanic membrane and ear canal normal. Nose: Congestion present. Right Turbinates: Swollen. Left Turbinates: Swollen. Comments: Turbinates with erythema Mouth/Throat: Mouth: Mucous membranes are moist. Pharynx: Posterior oropharyngeal erythema and postnasal drip present. Eyes: General: No scleral icterus. Conjunctiva/sclera: Conjunctivae normal. Cardiovascular: Rate and Rhythm: Normal rate and regular rhythm. Heart sounds: Normal heart sounds. No murmur heard. Pulmonary: Effort: Pulmonary effort is normal. No respiratory distress. Breath sounds: Normal breath sounds. No wheezing, rhonchi or rales. Lymphadenopathy: Cervical: No cervical adenopathy. Skin: General: Skin is warm and dry. Neurological: General: No focal deficit present. Mental Status: She is alert and oriented to person, place, and time. Psychiatric: Mood and Affect: Mood normal. Behavior: Behavior normal. Assessment/Plan Diagnoses and all orders for this visit: Acute non-recurrent ethmoidal sinusitis - amoxicillin-clavulanate (Augmentin) 875-125 MG tablet; Take 1 tablet (875 mg) by mouth in the morning and 1 tablet (875 mg) in the evening. Take with meals. Do all this for 7 days. Start the above as directed. Reviewed potential s/e with patient. Encouraged probiotic while on antibiotic. Increase water intake, get plenty of rest. Can take OTC allergy medication for symptomatic relief. Tylenol/Motrin prn. Follow up if no improvement in one week. Follow up in about 2 months (around 03/08/2025) for Hypertension. documented in this encounter [facility] 09-16-2024 Telephone encount er Note Patient notified [facility] 09-16-2024 Miscellaneous Notes Formattin g of this note might be different from the original. Patient notified Please let pt know that her recent labs showed her LDL (bad cholesterol) was elevated at 171. Similar to previous of 175. Her protein was mildly low. Otherwise labs looked good. Would just recommend she increase her protein intake in her diet. Limit fried foods, fast foods, fatty foods, and simple sugars. documented in this encounter [facility] 09-16-2024 Telephone encount er Note Please let pt know that her recent labs showed her LDL (bad cholesterol) was elevated at 171. Similar to previous of 175. Her protein was mildly low. Otherwise labs looked good. Would just recommend she increase her protein intake in her diet. Limit fried foods, fast foods, fatty foods, and simple sugars. [facility] 09-12-2024 History of Presen t illness Narrative Images from the original note were not included. Subjective Patient ID: Mei Stroud is a 84 y.o. female who presents for Medicare Annual Wellness Visit Subsequent. HPI Medicare Wellness Over the past 2 weeks, how often have you been bothered by any of the following problems? Little interest or pleasure in doing things: Not at all Feeling down, depressed, or hopeless: Not at all Patient Health Questionnaire-2 Score: 0 Conrad Fall Risk History of Falling, Immediate or Within 3 Months: Yes Health Risk Assessment Form Do you need help eating, bathing, using the toilet, dressing, or getting around your home?: No Can you prepare your own meals?: Yes Can you do your own housework without help?: Yes Can you shop for groceries or clothes without help?: Yes Do you exercise for about 20 minutes 3 or more days a week?: Yes How confident are you that you can control and manage most of your health problems?: Very confident Can you mange your money, credit cards and accounts, pay bills and taxes?: Yes Vision Screening: Yes, no gross abnormalities Hearing Screening: Yes, no gross abnormalities Cognitive Screening Self Assessment: No overt cognitive deficiency is apparent by direct observation Three Word Registration: Banana, [place], Chair Clock Drawing: Normal Clock - 2 Three Word Recall: All 3 words correct - 3 Total Score (0-5 Points): 5 Pain Assessment Pain Score: 0 - No pain Advance Care Planning Do you have a living will?: Yes Do you have a medical power of mergers and acquisitions attorney?: Yes Current Outpatient Medications on File Prior to Visit Medication Sig Dispense Refill alendronate (Fosamax) 70 MG tablet TAKE 1 TAB 30 MIN BEFORE FIRST FOOD/BEVERAGE/MEDICINE OF THE DAY WITH PLAIN WATER ONCE A WEEK 12 tablet 3 azelastine (Astelin) 0.1 % nasal spray Administer 1 spray into each nostril in the morning and 1 spray before bedtime. cefdinir (Omnicef) 300 MG capsule Take 1 capsule (300 mg) by mouth in the morning and 1 capsule (300 mg) before bedtime. Do all this for 10 days. 20 capsule 0 cetirizine (ZyrTEC) 10 MG tablet Take 10 mg by mouth in the morning. hydrocortisone 2.5 % cream Apply topically 2 (two) times a day as needed (Rash) Apply thin layer to affected areas bid prn for flares 30 g 3 metoprolol tartrate (Lopressor) 50 MG tablet TAKE 1 TABLET TWICE DAILY WITH FOOD 200 tablet 3 Multiple Vitamins-Minerals (Eye Vitamins) capsule Orally [DISCONTINUED] cromolyn (Opticrom) 4 % ophthalmic solution INSTILL 1 DROP INTO AFFECTED EYE 4 TIMES DAILY 30 mL 1 No current facility-administered medications on file prior to visit. I have reviewed and reconciled the history and medication list with the patient today. Allergies Allergen Reactions Other Other Reaction(s): Unknown Pollen Extract Rash Social History Tobacco Use Smoking status: Never Smokeless tobacco: Never Vaping Use Vaping status: Never Used Substance Use Topics Alcohol use: Never Drug use: Never Family History Adopted: Yes Problem Relation Name Age of Onset Melanoma Neg Hx Past Medical History: Diagnosis Date Actinic keratosis Allergic Breast cancer (CMS/HCC) 2006 Cervical strain Hypertension (CMS/HCC) Macular degeneration Migraine headache (CMS/HCC) JEREMY (obstructive sleep apnea) Osteopenia Osteoporosis (CMS/HCC) Past Surgical History: Procedure Laterality Date BREAST BIOPSY 2006 CATARACT EXTRACTION Bilateral [address] dr tsang COLONOSCOPY 01/[address] brewster ROTATOR CUFF REPAIR Left Visit Vitals BP 108/72 Pulse 55 Ht 5' 5.5 Wt 153 lb SpO2 98% BMI 25.07 kg/m Smoking Status Never BSA 1.79 m Review of Systems Constitutional: Negative for chills, fatigue and fever. HENT: Negative for congestion, ear pain, rhinorrhea and sore throat. Eyes: Negative for pain, discharge and visual disturbance. Respiratory: Negative for cough, shortness of breath and wheezing. Cardiovascular: Negative for chest pain, palpitations and leg swelling. Gastrointestinal: Negative for abdominal pain, constipation, diarrhea, nausea and vomiting. Genitourinary: Negative for difficulty urinating, dysuria and frequency. Musculoskeletal: Negative for arthralgias and back pain. Skin: Negative for rash. Neurological: Negative for dizziness and numbness. Psychiatric/Behavioral: Negative for sleep disturbance. The patient is not nervous/anxious. Objective Physical Exam Constitutional: General: She is not in acute distress. Appearance: Normal appearance. She is well-developed. HENT: Head: Normocephalic and atraumatic. Right Ear: Tympanic membrane and ear canal normal. Left Ear: Tympanic membrane and ear canal normal. Nose: Nose normal. Mouth/Throat: Mouth: Mucous membranes are moist. Pharynx: No posterior oropharyngeal erythema. Eyes: General: No scleral icterus. Extraocular Movements: Extraocular movements intact. Conjunctiva/sclera: Conjunctivae normal. Pupils: Pupils are equal, round, and reactive to light. Neck: Vascular: No carotid bruit. Cardiovascular: Rate and Rhythm: Normal rate and regular rhythm. Heart sounds: Normal heart sounds. No murmur heard. Pulmonary: Effort: Pulmonary effort is normal. No respiratory distress. Breath sounds: Normal breath sounds. No wheezing, rhonchi or rales. Abdominal: General: Bowel sounds are normal. There is no distension. Palpations: Abdomen is soft. Tenderness: There is no abdominal tenderness. There is no guarding. Musculoskeletal: General: No swelling or deformity. Normal range of motion. Cervical back: Normal range of motion and neck supple. No tenderness. Skin: General: Skin is warm and dry. Capillary Refill: Capillary refill takes less than 2 seconds. Findings: No rash. Neurological: General: No focal deficit present. Mental Status: She is alert and oriented to person, place, and time. Cranial Nerves: No cranial nerve deficit. Sensory: No sensory deficit. Motor: No weakness. Gait: Gait normal. Deep Tendon Reflexes: Reflexes normal. Psychiatric: Mood and Affect: Mood normal. Behavior: Behavior normal. Thought Content: Thought content normal. Judgment: Judgment normal. Assessment & Plan 1. Medicare annual wellness visit, subsequent (Primary) Reviewed all relevant preventative screenings with the patient in detail. Medicare Wellness form completed and will be scanned into patient's chart. All needed testing was ordered. Will continue with yearly Medicare Wellness exams. 2. Hypersomnia This is a chronic medical condition that is stable since last assessment. No changes in treatment are suggested at this time. 3. Obstructive sleep apnea syndrome This is a chronic medical condition that is stable since last assessment. No changes in treatment are suggested at this time. 4. Seizure ([facility]) No recent seizures. Not currently on any medication for seizures. Will continue to monitor. 5. Benign essential hypertension ([facility]) Patient's blood pressure is currently well controlled. Continue with current medications and I will continue to monitor. Goal BP remains less than 130/80. 6. Diverticulosis This is a chronic medical condition that is stable since last assessment. No changes in treatment are suggested at this time. 7. Cervical spondylosis This is a chronic medical condition that is stable since last assessment. No changes in treatment are suggested at this time. 8. Age-related osteoporosis without current pathological fracture ([facility]) This is a chronic medical condition that is stable since last assessment. No changes in treatment are suggested at this time. Will continue to monitor with routine DEXA scans. 9. Acute seasonal allergic rhinitis due to pollen This is a chronic medical condition that is stable since last assessment. No changes in treatment are suggested at this time. 10. Allergic conjunctivitis of both eyes This is a chronic medical condition that is stable since last assessment. No changes in treatment are suggested at this time. - cromolyn (Opticrom) 4 % ophthalmic solution; Administer 1 drop into both eyes in the morning and 1 drop at noon and 1 drop in the evening and 1 drop before bedtime. Dispense: 30 mL; Refill: 3 11. Hypercholesterolemia (CMS/HCC) This is a chronic medical condition that is stable since last assessment. No changes in treatment are suggested at this time. Will continue to monitor with routine labs. 12. Macular degeneration of both eyes, unspecified type The patient is seeing a biomedical engineering supervisor for this condition, treatment is deferred to that specialist. Encouraged routine follow up appointments. 13. ACP Patient willing to discuss ACP. Pt has Living Will and DPOA in place. Follow up in about 6 months (around 03/13/2025) for Hypertension. Tonia LEON PA-C documented in this encounter [facility] 09-09-2024 History of Presen t illness Narrative Images from the original note were not included. Subjective Patient ID: Mei Stroud is a 84 y.o. female who presents for a urgent care follow up. Mei is In today for an urgent care follow up from when she fell on her tub from the sitting position on her toilet a little less than a week ago. She fell on her left side and is complaining of left rib pain. She got an xray taken and it came back clear of any findings. States she is feeling better, her range of motion is improving. Has no problems taking a deep breath. Has been using ice as needed with relief of symptoms. Current Outpatient Medications on File Prior to Visit Medication Sig Dispense Refill alendronate (Fosamax) 70 MG tablet TAKE 1 TAB 30 MIN BEFORE FIRST FOOD/BEVERAGE/MEDICINE OF THE DAY WITH PLAIN WATER ONCE A WEEK 12 tablet 3 azelastine (Astelin) 0.1 % nasal spray Administer 1 spray into each nostril in the morning and 1 spray before bedtime. cefdinir (Omnicef) 300 MG capsule Take 1 capsule (300 mg) by mouth in the morning and 1 capsule (300 mg) before bedtime. Do all this for 10 days. 20 capsule 0 cetirizine (ZyrTEC) 10 MG tablet Take 10 mg by mouth in the morning. cromolyn (Opticrom) 4 % ophthalmic solution INSTILL 1 DROP INTO AFFECTED EYE 4 TIMES DAILY 30 mL 1 hydrocortisone 2.5 % cream Apply topically 2 (two) times a day as needed (Rash) Apply thin layer to affected areas bid prn for flares 30 g 3 metoprolol tartrate (Lopressor) 50 MG tablet TAKE 1 TABLET TWICE DAILY WITH FOOD 200 tablet 3 Multiple Vitamins-Minerals (Eye Vitamins) capsule Orally No current facility-administered medications on file prior to visit. I have reviewed and reconciled the history and medication list with the patient today. Allergies Allergen Reactions Other Other Reaction(s): Unknown Pollen Extract Rash Social History Tobacco Use Smoking status: Never Smokeless tobacco: Never Vaping Use Vaping status: Never Used Substance Use Topics Alcohol use: Never Drug use: Never Family History Adopted: Yes Problem Relation Name Age of Onset Melanoma Neg Hx Past Medical History: Diagnosis Date Actinic keratosis Allergic Breast cancer (CMS/HCC) 2007 Cervical strain Hypertension (CMS/HCC) Macular degeneration Migraine headache (CMS/HCC) JEREMY (obstructive sleep apnea) Osteopenia Osteoporosis (CMS/HCC) Past Surgical History: Procedure Laterality Date BREAST BIOPSY 2006 CATARACT EXTRACTION Bilateral [address] dr tsang COLONOSCOPY 01/[address] brewster ROTATOR CUFF REPAIR Left Visit Vitals BP 100/70 Pulse 55 Resp 17 Wt 151 lb SpO2 99% BMI 24.75 kg/m Smoking Status Never BSA 1.78 m Review of Systems Constitutional: Negative for chills, fatigue and fever. Respiratory: Negative for cough, shortness of breath and wheezing. Cardiovascular: Negative for chest pain, palpitations and leg swelling. Gastrointestinal: Negative for abdominal pain, constipation, diarrhea, nausea and vomiting. Musculoskeletal: Rib pain Skin: Negative for rash. Objective Physical Exam Constitutional: General: She is not in acute distress. Appearance: Normal appearance. She is well-developed. Comments: Very pleasant HENT: Head: Normocephalic and atraumatic. Eyes: General: No scleral icterus. Conjunctiva/sclera: Conjunctivae normal. Cardiovascular: Rate and Rhythm: Normal rate and regular rhythm. Heart sounds: Normal heart sounds. No murmur heard. Pulmonary: Effort: Pulmonary effort is normal. No respiratory distress. Breath sounds: Normal breath sounds. No wheezing, rhonchi or rales. Comments: Tender over left lower anterior and lateral rib cage. No pain with deep inspiration. Skin: General: Skin is warm and dry. Neurological: General: No focal deficit present. Mental Status: She is alert and oriented to person, place, and time. Psychiatric: Mood and Affect: Mood normal. Behavior: Behavior normal. Assessment/Plan Diagnoses and all orders for this visit: Rib contusion, left, subsequent encounter Reviewed patient's UC note from 09/06/2024, x-ray report and images, prior to patient's appointment today. Her symptoms are all improving. Encouraged pt to continue ice to area as needed, 20 min on 20 min off, over her shirt, not directly on skin. Encouraged pt to take deep breaths periodically throughout the day. Symptoms should continue to gradually improve. Follow up as needed for this concern. Follow up for Medicare Wellness Visit. documented in this encounter [facility] 09-06-2024 History of Presen t illness Narrative HPI: Historian of HPI: patient Mei Stroud is a 84 y.o. female who presents today to the Urgent Care with the following complaints and denials due left rib pain which has been present for 3 day(s). Pt states she fell on top her bath tub from a sitting position on Monday and is now having left rib pain. Pt rates her pain a 3 out of 10 today. But also depends on her range of motion. C/O Denies Symptom Comments [] [x] swelling [] [x] ecchymosis [] [x] erythema [] [x] tingling [] [x] numbness [x] [] Pain radiation Left rib pain [] [x] Weakness [] [x] Decreased ROM [] [x] Trauma Additional Comments: pt has not taken any OTC medications Pt admits to cold application to the affected area ROS: A complete system ROS was performed and negative aside from the pertinent positives noted in the HPI and PE. Visit Vitals BP 114/68 (BP Location: Right arm, Patient Position: Sitting, BP Cuff Size: Small adult) Pulse 78 Temp 97.8 F Wt 155 lb SpO2 98% BMI 25.40 kg/m Smoking Status Never BSA 1.8 m Physical Exam Vitals reviewed. Constitutional: General: She is not in acute distress. Appearance: Normal appearance. HENT: Head: Normocephalic and atraumatic. Nose: Nose normal. Mouth/Throat: Mouth: Mucous membranes are moist. Pharynx: Oropharynx is clear. Eyes: Extraocular Movements: Extraocular movements intact. Conjunctiva/sclera: Conjunctivae normal. Pupils: Pupils are equal, round, and reactive to light. Cardiovascular: Rate and Rhythm: Normal rate and regular rhythm. Pulses: Normal pulses. Heart sounds: Normal heart sounds. Pulmonary: Effort: Pulmonary effort is normal. No respiratory distress. Breath sounds: Normal breath sounds. No wheezing, rhonchi or rales. Musculoskeletal: General: Normal range of motion. Cervical back: Normal range of motion and neck supple. Skin: General: Skin is warm and dry. Capillary Refill: Capillary refill takes less than 2 seconds. Findings: No rash. Neurological: General: No focal deficit present. Mental Status: She is alert and oriented to person, place, and time. Psychiatric: Mood and Affect: Mood normal. Behavior: Behavior normal. Thought Content: Thought content normal. Judgment: Judgment normal. 1. Fall, initial encounter (Primary) Presents today after falling into side of tub from toilet 3 days ago. She landed on her left side. She is having some rib cage pain since. She is not in any acute distress and is able to speak in full sentences. On exam, there is no swelling, open areas, or bruising noted. She is agreeable to XR rib left with chest to further evaluate for fractures of ribs. - XR ribs 2 views left w chest anteroposterior; Future 2. Rib pain on left side See below for final radiologist read. - XR ribs 2 views left w chest anteroposterior; Future Findings: Lungs are hyperinflated. There is slight undulation in cortical contour of the left anterior sixth seventh and eighth ribs although discrete fracture lines are not visible.. Pleural space is clear. Heart and mediastinum are unremarkable. IMPRESSION: 1. No definite rib fracture identified. Slight undulating contour of left anterior 6-8 ribs could be physiologic or represent prior traumatic change. It would be difficult to fully exclude nondisplaced fractures. 2. No acute cardiopulmonary sequela identified. See telephone encounter. documented in this encounter [facility] 09-04-2024 History of Presen t illness Narrative Images from the original note were not included. Subjective Patient ID: Mei Stroud is a 84 y.o. female who presents for sinus congestion and a sore throat. The pt presents today for an increased cough, congestion and a sore throat for the last 3 days, has been going on for the last 1 week. Current Outpatient Medications on File Prior to Visit Medication Sig Dispense Refill alendronate (Fosamax) 70 MG tablet TAKE 1 TAB 30 MIN BEFORE FIRST FOOD/BEVERAGE/MEDICINE OF THE DAY WITH PLAIN WATER ONCE A WEEK 12 tablet 3 azelastine (Astelin) 0.1 % nasal spray Administer 1 spray into each nostril in the morning and 1 spray before bedtime. cetirizine (ZyrTEC) 10 MG tablet Take 10 mg by mouth in the morning. cromolyn (Opticrom) 4 % ophthalmic solution INSTILL 1 DROP INTO AFFECTED EYE 4 TIMES DAILY 30 mL 1 hydrocortisone 2.5 % cream Apply topically 2 (two) times a day as needed (Rash) Apply thin layer to affected areas bid prn for flares 30 g 3 metoprolol tartrate (Lopressor) 50 MG tablet TAKE 1 TABLET TWICE DAILY WITH FOOD 200 tablet 3 Multiple Vitamins-Minerals (Eye Vitamins) capsule Orally No current facility-administered medications on file prior to visit. I have reviewed and reconciled the history and medication list with the patient today. Allergies Allergen Reactions Other Other Reaction(s): Unknown Pollen Extract Rash Social History Tobacco Use Smoking status: Never Smokeless tobacco: Never Vaping Use Vaping status: Never Used Substance Use Topics Alcohol use: Never Drug use: Never Family History Adopted: Yes Problem Relation Name Age of Onset Melanoma Neg Hx Past Medical History: Diagnosis Date Actinic keratosis Allergic Breast cancer (CMS/HCC) 2006 Cervical strain Hypertension (CMS/HCC) Macular degeneration Migraine headache (CMS/HCC) JEREMY (obstructive sleep apnea) Osteopenia Osteoporosis (CMS/HCC) Past Surgical History: Procedure Laterality Date BREAST BIOPSY 2006 CATARACT EXTRACTION Bilateral [address] dr tsang COLONOSCOPY 01/[address] brewster ROTATOR CUFF REPAIR Left Visit Vitals Ht 5' 5.5 BMI 25.01 kg/m Smoking Status Never BSA 1.79 m Review of Systems Constitutional: Positive for fatigue. HENT: Positive for congestion, rhinorrhea and sore throat. Eyes: Negative. Respiratory: Positive for cough. Cardiovascular: Negative. Gastrointestinal: Negative. Genitourinary: Negative. Musculoskeletal: Negative. Skin: Negative. Neurological: Negative. Psychiatric/Behavioral: Negative. Hematological: Negative. Endocrine: Negative. Allergic/Immunologic: Negative. Objective Physical Exam Vitals reviewed. Constitutional: Appearance: She is ill-appearing. HENT: Head: Normocephalic and atraumatic. Ears: Comments: Bilateral TM's are dull in appearance, no bulge or retraction noted, canals with mild redness, no pain Nose: Comments: Erythematous nasal turbinates bilaterally, purulent drainage noted bilaterally, frontal sinus pain and pressure noted Eyes: Conjunctiva/sclera: Conjunctivae normal. Cardiovascular: Rate and Rhythm: Normal rate and regular rhythm. Heart sounds: Normal heart sounds. Pulmonary: Effort: Pulmonary effort is normal. Breath sounds: Normal breath sounds. Abdominal: Palpations: Abdomen is soft. Musculoskeletal: General: Normal range of motion. Cervical back: Normal range of motion and neck supple. Skin: General: Skin is warm and dry. Neurological: Mental Status: She is alert and oriented to person, place, and time. Psychiatric: Mood and Affect: Mood normal. Behavior: Behavior normal. Thought Content: Thought content normal. Judgment: Judgment normal. Assessment/Plan 1. Acute frontal sinusitis, recurrence not specified (Primary) Discussed diagnosis, use of cefdinir and its most common side effects. She is advised to increase her fluids, continue otc decongestant as directed, continue saline nasal spray as directed, continue otc tylenol or ibuprofen as directed as needed and follow up if continued or worsening symptoms. - cefdinir (Omnicef) 300 MG capsule; Take 1 capsule (300 mg) by mouth in the morning and 1 capsule (300 mg) before bedtime. Do all this for 10 days. Dispense: 20 capsule; Refill: 0 No follow-ups on file. documented in this encounter [facility] 09-04-2024 Instructions Katt Love NP - 09/04/2024 2:00 PM EST Cefdinir started today. documented in this encounter [facility] 08-06-2024 History of Presen t illness Narrative Images from the original note were not included. Subjective Patient ID: Mei Stroud is a 84 y.o. female who presents for a sick visit. Mei is in today for a sick visit. States she thinks she has a sinus infection. Complains she feels sinus pressure, her head hurts in her eyes,nose, and forehead. Denies any cough, sore throat, diarrhea, nausea. She would also like to know if her opticrom is going out due to the pharmacy telling her they only have it in the fall. Sinusitis This is a new problem. The current episode started 1 to 4 weeks ago. The problem has been gradually worsening since onset. There has been no fever. Her pain is at a severity of 7/10. The pain is moderate. Associated symptoms include chills, congestion, diaphoresis, headaches, a hoarse voice, sinus pressure and sneezing. Past treatments include oral decongestants and nasal decongestants. The treatment provided no relief. Current Outpatient Medications on File Prior to Visit Medication Sig Dispense Refill alendronate (Fosamax) 70 MG tablet TAKE 1 TAB 30 MIN BEFORE FIRST FOOD/BEVERAGE/MEDICINE OF THE DAY WITH PLAIN WATER ONCE A WEEK 12 tablet 3 azelastine (Astelin) 0.1 % nasal spray Administer 1 spray into each nostril in the morning and 1 spray before bedtime. cetirizine (ZyrTEC) 10 MG tablet Take 10 mg by mouth in the morning. cromolyn (Opticrom) 4 % ophthalmic solution INSTILL 1 DROP INTO AFFECTED EYE 4 TIMES DAILY 30 mL 1 hydrocortisone 2.5 % cream Apply topically 2 (two) times a day as needed (Rash) Apply thin layer to affected areas bid prn for flares 30 g 3 metoprolol tartrate (Lopressor) 50 MG tablet TAKE 1 TABLET TWICE DAILY WITH FOOD 200 tablet 3 Multiple Vitamins-Minerals (Eye Vitamins) capsule Orally No current facility-administered medications on file prior to visit. I have reviewed and reconciled the history and medication list with the patient today. Allergies Allergen Reactions Other Other Reaction(s): Unknown Pollen Extract Rash Social History Tobacco Use Smoking status: Never Smokeless tobacco: Never Vaping Use Vaping status: Never Used Substance Use Topics Alcohol use: Never Drug use: Never Family History Adopted: Yes Problem Relation Name Age of Onset Melanoma Neg Hx Past Medical History: Diagnosis Date Actinic keratosis Allergic Breast cancer (CMS/HCC) 2006 Cervical strain Hypertension (CMS/HCC) Macular degeneration Migraine headache (CMS/HCC) JEREMY (obstructive sleep apnea) Osteopenia Osteoporosis (CMS/HCC) Past Surgical History: Procedure Laterality Date BREAST BIOPSY 2007 CATARACT EXTRACTION Bilateral 1984 dr tsang COLONOSCOPY 01/[address] brewster ROTATOR CUFF REPAIR Left Visit Vitals Smoking Status Never Review of Systems Constitutional: Positive for chills and diaphoresis. HENT: Positive for congestion, hoarse voice, sinus pressure and sneezing. Neurological: Positive for headaches. Objective Physical Exam Vitals reviewed. Constitutional: Appearance: Normal appearance. HENT: Head: Normocephalic. Right Ear: A middle ear effusion is present. Left Ear: A middle ear effusion is present. Nose: Congestion present. Right Turbinates: Swollen and pale. Left Turbinates: Swollen and pale. Mouth/Throat: Mouth: Mucous membranes are moist. Pharynx: Posterior oropharyngeal erythema present. No oropharyngeal exudate. Cardiovascular: Rate and Rhythm: Normal rate and regular rhythm. Pulmonary: Effort: Pulmonary effort is normal. Breath sounds: Normal breath sounds. Skin: General: Skin is warm and dry. Neurological: General: No focal deficit present. Mental Status: She is alert and oriented to person, place, and time. Psychiatric: Mood and Affect: Mood normal. Behavior: Behavior normal. Assessment/Plan Diagnoses and all orders for this visit: Acute non-recurrent pansinusitis - amoxicillin-clavulanate (Augmentin) 875-125 MG tablet; Take 1 tablet (875 mg) by mouth in the morning and 1 tablet (875 mg) before bedtime. Do all this for 10 days. Start the above as directed. Reviewed potential s/e with patient. Encouraged probiotic while on antibiotic. Increase water intake, get plenty of rest. Tylenol/Motrin prn. Follow up if no improvement in one week. No follow-ups on file. documented in this encounter [facility] 08-06-2024 Miscellaneous Notes Addended by: LYNDA GONZALES on: 08/06/2024 10:51 AM Modules accepted: Orders, Level of Service documented in this encounter [facility] 08-06-2024 Note Addended by: LYNDA GONZALES on: 08/06/2024 10:51 AM Modules accepted: Orders, Level of Service [facility] 08-06-2024 Note Addended by: LYNDA GONZALES on: 08/06/2024 10:51 AM Modules accepted: Orders, Level of Service [facility] 06-17-2024 History of Presen t illness Narrative Images from the original note were not included. Follow up Diagnosis: Onycholysis due to pseudomonas infection Location: Left 4th finger nail plate Last visit: 06/03/2024 Symptoms: denies pain and drainage; looks about the same Status: no change Current treatment: Vinegar soaks TID for at least 5 minutes, keep nail trimmed and clean, start Cipro 500mg BID, completed for 14 days. All pertinent medical history, medications, and allergies were reviewed. General Exam: alert , oriented to person, place, and time , normal affect, well appearing Unaccompanied A focused exam completed based on patient reported problems, see below: 1. Onycholysis due to Pseudomonas infection Left 4th Finger Nail Plate Green discoloration with nail separation from the skin beneath it. Improving today. Instructed patient to stop treatment and allow nail to grow up, keeping nail trimmed and clean. Patient may continue vinegar soaks up to TID for at least 5 minutes. Informed patient that it may take up to 4-6 months for results. Follow up as scheduled. Next Visit: as scheduled documented in this encounter [facility] 06-03-2024 History of Presen t illness Narrative Images from the original note were not included. Follow up Diagnosis: Onycholysis due to pseudomonas infection Location: Left 4th finger nail plate Last visit: 05/14/2024 Symptoms: denies pain and drainage; looks about the same Status: worse since wearing nail greek over the weekend Current treatment: Vinegar soaks TID for at least 5 minutes, keep nail trimmed and clean, start Cipro 500mg BID, completed for 10 days. All pertinent medical history, medications, and allergies were reviewed. General Exam: alert , oriented to person, place, and time , normal affect, well appearing Unaccompanied A focused exam completed based on patient reported problems, see below: 1. Onycholysis due to Pseudomonas infection Left 4th Finger Nail Plate Green discoloration with nail separation from the skin beneath it. Discussed this will take time for new nail to grow out. Continue Vinegar soaks TID and keep nail short and clean. Do another dose of Cipro 500mg bid for 2 weeks, instructed to discontinue if side effects (heel pain) occurs. Follow up in 2 weeks. ciprofloxacin (Cipro) 500 MG tablet - Left 4th Finger Nail Plate Take 1 tablet (500 mg) by mouth in the morning and 1 tablet (500 mg) before bedtime. Do all this for 14 days. Next Visit: 2 weeks documented in this encounter [facility] 05-14-2024 Telephone encount er Note Patient seen today in office. Cipro sent in to take BID x 10 days. Please move follow up from one month to 2 weeks. Thanks! [facility] 05-14-2024 Miscellaneous Notes Formattin g of this note might be different from the original. Patient seen today in office. Cipro sent in to take BID x 10 days. Please move follow up from one month to 2 weeks. Thanks! documented in this encounter [facility] 05-14-2024 History of Presen t illness Narrative Images from the original note were not included. Follow up Diagnosis: Onycholysis due to pseudomonas infection Location: Left 4th finger nail plate Last visit: 3 months ago Symptoms: denies pain and drainage; seems to get better if pt doesn't wear nail greek Status: worse since wearing nail greek over the weekend Current treatment: Vinegar soaks TID for at least 5 minutes, keep nail trimmed and clean All pertinent medical history, medications, and allergies were reviewed. General Exam: alert , oriented to person, place, and time , normal affect, well appearing Unaccompanied A focused exam completed based on patient reported problems, see below: 1. Onycholysis due to Pseudomonas infection Left 4th Finger Nail Plate Green discoloration with nail separation from the skin beneath it. Discussed this will take time for new nail to grow out. Continue Vinegar soaks TID and keep nail short and clean. Start Cipro bid, instructed to discontinue if side effects (heel pain) occurs. Follow up in 1 month if no improvement. Next Visit: 1 month documented in this encounter [facility] 11-18-2023 History of Presen t illness Narrative Skin Check Location: Patient requests a skin examination from the waist up Dermatologic history: history of Actinic Keratosis Last visit: 1 year ago Established patient Follow up Diagnosis: Onycholysis due to pseudomonas infection Location: Left 4th finger nail plate Last visit: 06/17/2024 Symptoms: clear today Status: improved Current treatment: none Lesions: Location: left hand Duration: months Quality: denies pain, denies itch, denies bleeding Modifying factors: none Associated symptoms: rough, scaly Treatments: none All pertinent medical history, medications, and allergies were reviewed. General Exam: alert, oriented to person, place, and time, normal affect, well appearing Unaccompanied A complete skin exam was offered, pt declined. Areas not examined despite medical recommendation: From the waist down Scalp, Examined , exam limited by hair Head, Face Examined Neck Examined Chest Examined Back Examined Abdomen Examined Right arm Examined Left arm Examined Hands Examined Digits,nails: Examined Lymphatics: Not examined 1. Seborrheic keratosis (7) Abdomen (Lower Torso, Anterior), Chest (Upper Torso, Anterior), Head - Anterior (Face), Left Arm, Neck, Right Arm, Torso - Posterior (Back) Stuck on verrucous, jhaveri-brown papules and plaques. Patient was counseled regarding these benign growths. Removal is normally not necessary, but they may be removed if they are symptomatic or for cosmetic reasons. 2. Actinic keratosis Left Dorsal Hand Erythematous scaly papules Patient was counseled regarding these sun-induced growths that can develop into squamous cell carcinoma if left untreated. Discussed treatment with cryotherapy. It was emphasized that any treated lesions that fail to resolve should be re-evaluated. Cryotherapy performed today; see procedure note Diagnosis: Actinic keratosis Indication: Precancerous Location: see skin exam Consent: Verbal consent was obtained and risks were discussed, including, but not limited to risks of scarring, darker or pastry cook pigmentary changes, recurrence, incomplete removal and infection. Method: Liquid nitrogen was used to treat the lesion(s) with two 5-10 second freeze-thaw cycles. Number of lesions treated: 1 Post-procedure instructions: Instructions were given orally and in writing. The office will be contacted if the lesion fails to resolve despite treatment, or if a side effect develops such as abnormal crusting, scabbing, redness or tenderness Cryotherapy, skin lesion - Left Dorsal Hand 3. Melanocytic nevus of trunk Torso - Posterior (Back) Scattered benign appearing, regular brown to light brown melanocytic papules and macules with similar morphology Counseled regarding these benign growths. Rarely, a nevus can develop into malignant melanoma, so any changing nevi should be promptly re-evaluated. 4. Melanocytic nevus of left upper extremity Left Arm Scattered benign appearing, regular brown to light brown melanocytic papules and macules with similar morphology Counseled regarding these benign growths. Rarely, a nevus can develop into malignant melanoma, so any changing nevi should be promptly re-evaluated. 5. Melanocytic nevus of right upper extremity Right Arm Scattered benign appearing, regular brown to light brown melanocytic papules and macules with similar morphology Counseled regarding these benign growths. Rarely, a nevus can develop into malignant melanoma, so any changing nevi should be promptly re-evaluated. 6. Neurofibroma Left Upper Arm - Posterior Flesh-colored to erythematous, soft, compressible papule The patient was reassured that neurofibromas are benign nerve sheath skin tumors. No treatment is necessary. 7. Sebaceous hyperplasia of face Head - Anterior (Face) Small yellow papules with a central dell. Reassure, benign. Discussed these can be removed for a cosmetic fee with the hyfrecator if desired. 8. Onycholysis due to Pseudomonas infection Left 4th Finger Nail Plate Improved since last visit. Clear today. Next Visit: 1 year documented in this encounter [facility] 11-18-2023 History of Presen t illness Narrative Skin Check Location: Patient requests a skin examination from the waist up Dermatologic history: history of Actinic Keratosis Last visit: 1 year ago Established patient Follow up Diagnosis: Onycholysis due to pseudomonas infection Location: Left 4th finger nail plate Last visit: 06/17/2024 Symptoms: clear today Status: improved Current treatment: none Lesions: Location: left hand Duration: months Quality: denies pain, denies itch, denies bleeding Modifying factors: none Associated symptoms: rough, scaly Treatments: none All pertinent medical history, medications, and allergies were reviewed. General Exam: alert, oriented to person, place, and time, normal affect, well appearing Unaccompanied A complete skin exam was offered, pt declined. Areas not examined despite medical recommendation: From the waist down Scalp, Examined , exam limited by hair Head, Face Examined Neck Examined Chest Examined Back Examined Abdomen Examined Right arm Examined Left arm Examined Hands Examined Digits,nails: Examined Lymphatics: Not examined 1. Seborrheic keratosis (7) Abdomen (Lower Torso, Anterior), Chest (Upper Torso, Anterior), Head - Anterior (Face), Left Arm, Neck, Right Arm, Torso - Posterior (Back) Stuck on verrucous, jhaveri-brown papules and plaques. Patient was counseled regarding these benign growths. Removal is normally not necessary, but they may be removed if they are symptomatic or for cosmetic reasons. 2. Actinic keratosis Left Dorsal Hand Erythematous scaly papules Patient was counseled regarding these sun-induced growths that can develop into squamous cell carcinoma if left untreated. Discussed treatment with cryotherapy. It was emphasized that any treated lesions that fail to resolve should be re-evaluated. Cryotherapy performed today; see procedure note Diagnosis: Actinic keratosis Indication: Precancerous Location: see skin exam Consent: Verbal consent was obtained and risks were discussed, including, but not limited to risks of scarring, darker or pastry cook pigmentary changes, recurrence, incomplete removal and infection. Method: Liquid nitrogen was used to treat the lesion(s) with two 5-10 second freeze-thaw cycles. Number of lesions treated: 1 Post-procedure instructions: Instructions were given orally and in writing. The office will be contacted if the lesion fails to resolve despite treatment, or if a side effect develops such as abnormal crusting, scabbing, redness or tenderness Cryotherapy, skin lesion - Left Dorsal Hand 3. Melanocytic nevus of trunk Torso - Posterior (Back) Scattered benign appearing, regular brown to light brown melanocytic papules and macules with similar morphology Counseled regarding these benign growths. Rarely, a nevus can develop into malignant melanoma, so any changing nevi should be promptly re-evaluated. 4. Melanocytic nevus of left upper extremity Left Arm Scattered benign appearing, regular brown to light brown melanocytic papules and macules with similar morphology Counseled regarding these benign growths. Rarely, a nevus can develop into malignant melanoma, so any changing nevi should be promptly re-evaluated. 5. Melanocytic nevus of right upper extremity Right Arm Scattered benign appearing, regular brown to light brown melanocytic papules and macules with similar morphology Counseled regarding these benign growths. Rarely, a nevus can develop into malignant melanoma, so any changing nevi should be promptly re-evaluated. 6. Neurofibroma Left Upper Arm - Posterior Flesh-colored to erythematous, soft, compressible papule The patient was reassured that neurofibromas are benign nerve sheath skin tumors. No treatment is necessary. 7. Sebaceous hyperplasia of face Head - Anterior (Face) Small yellow papules with a central dell. Reassure, benign. Discussed these can be removed for a cosmetic fee with the hyfrecator if desired. 8. Onycholysis due to Pseudomonas infection Left 4th Finger Nail Plate Improved since last visit. Clear today. Next Visit: 1 year documented in this encounter [facility] 11-07-2023 History of Presen t illness Narrative Subjective Patient ID: Mei Stroud is a 83 y.o. female who presents for sinus infection. Mei is present today for evaluation of possible sinus infection. Complains of sinus pressure/pain, headaches, hoarseness, sneezing, rhinitis, right ear discomfort, nasal congestion. She has been sick since Monday and has been taking Vicks Sinex and Zyrtec. Current Outpatient Medications on File Prior to Visit Medication Sig Dispense Refill alendronate (Fosamax) 70 MG tablet TAKE 1 TAB 30 MIN BEFORE FIRST FOOD/BEVERAGE/MEDICINE OF THE DAY WITH PLAIN WATER ONCE A WEEK 12 tablet 3 azelastine (Astelin) 0.1 % nasal spray Administer 1 spray into each nostril in the morning and 1 spray before bedtime. cetirizine (ZyrTEC) 10 MG tablet Take 10 mg by mouth in the morning. cromolyn (Opticrom) 4 % ophthalmic solution INSTILL 1 DROP INTO AFFECTED EYE 4 TIMES DAILY 30 mL 1 hydrocortisone 2.5 % cream every 12 (twelve) hours. metoprolol tartrate (Lopressor) 50 MG tablet TAKE 1 TABLET TWICE DAILY WITH FOOD 200 tablet 3 Multiple Vitamins-Minerals (Eye Vitamins) capsule Orally No current facility-administered medications on file prior to visit. Allergies Allergen Reactions Other Other Reaction(s): Unknown Pollen Extract Rash Social History Tobacco Use Smoking status: Never Smokeless tobacco: Never Substance Use Topics Alcohol use: Never Drug use: Never Family History Adopted: Yes Problem Relation Name Age of Onset Melanoma Neg Hx Past Medical History: Diagnosis Date Allergic Breast cancer (CMS/HCC) 2007 Cervical strain Hypertension (CMS/HCC) Macular degeneration Migraine headache (CMS/HCC) JEREMY (obstructive sleep apnea) Osteopenia Osteoporosis (CMS/HCC) Past Surgical History: Procedure Laterality Date BREAST BIOPSY 2007 CATARACT EXTRACTION Bilateral [address] dr tsang COLONOSCOPY 01/[address] brewster ROTATOR CUFF REPAIR Left Visit Vitals BP 112/72 Pulse 59 Temp 97.9 F Resp 16 Wt 151 lb 3.2 oz SpO2 99% BMI 24.78 kg/m Smoking Status Never BSA 1.78 m Review of Systems Constitutional: Negative for chills, fatigue and fever. HENT: Positive for congestion, ear pain, rhinorrhea, sinus pressure, sinus pain, sneezing and voice change. Negative for sore throat. Respiratory: Negative for cough, shortness of breath and wheezing. Cardiovascular: Negative for chest pain and palpitations. Gastrointestinal: Negative for abdominal pain, constipation, diarrhea, nausea and vomiting. Neurological: Positive for headaches. Objective Physical Exam Constitutional: General: She is not in acute distress. Appearance: She is well-developed. She is ill-appearing. HENT: Head: Normocephalic and atraumatic. Right Ear: Tympanic membrane and ear canal normal. Left Ear: Tympanic membrane and ear canal normal. Nose: Congestion present. Right Turbinates: Swollen. Left Turbinates: Swollen. Right Sinus: Frontal sinus tenderness present. Left Sinus: Frontal sinus tenderness present. Mouth/Throat: Mouth: Mucous membranes are moist. Pharynx: Posterior oropharyngeal erythema present. Comments: PND noted. Erythema is mild. Eyes: General: No scleral icterus. Conjunctiva/sclera: Conjunctivae normal. Neck: Thyroid: No thyromegaly. Cardiovascular: Rate and Rhythm: Normal rate and regular rhythm. Heart sounds: Normal heart sounds. No murmur heard. Pulmonary: Effort: Pulmonary effort is normal. No respiratory distress. Breath sounds: Normal breath sounds. No wheezing, rhonchi or rales. Lymphadenopathy: Cervical: No cervical adenopathy. Skin: General: Skin is warm and dry. Neurological: General: No focal deficit present. Mental Status: She is alert and oriented to person, place, and time. Psychiatric: Mood and Affect: Mood normal. Behavior: Behavior normal. Assessment/Plan Diagnoses and all orders for this visit: Acute recurrent frontal sinusitis - amoxicillin-clavulanate (Augmentin) 875-125 MG tablet; Take 1 tablet (875 mg) by mouth in the morning and 1 tablet (875 mg) in the evening. Take with meals. Do all this for 10 days. Start the above as directed. Reviewed potential s/e with patient. Encouraged probiotic while on antibiotic. Increase water intake, get plenty of rest. Can continue to take OTC allergy medication for symptomatic relief. Tylenol/Motrin prn. Follow up if no improvement in one week. Follow up for Medicare Wellness Visit in May. documented in this encounter [facility] 07-15-2021 Evaluation note Encounter Date Diagnosis Assessment Notes Jun, Contact with and (suspected) exposure to other viral communicable diseases (ICD-10 - Z20.828) Today test was performed in office. Results are currently negative. That does not mean that you will not develop COVID or do not currently have a low viral count of COVID. The rapid test works best if symptoms have been over 72 hours and the results can vary if you are asymptomatic There is a higher chance of false negative results to occur if testing is performed too soon. It is recommended that even if results are negative and you have been exposed to someone that has COVID that you follow current CDC recommendations . These can be found at CDC.GOV. Follow up with primary care provider if symptoms persist or do not improve Jun, Other Additional time spent conducting pre-visit phone call, screening for symptoms, instructions on social distancing, application and removal of PPE, and cleaning of examination room, equipment and supplies was preformed. Patient education given for testing methodology and results. Patient care instructions given in writting by [facility] Care At Home document. [facility] Other Evaluation note* Diagnosis Acute recurrent frontal sinusitis- Primary documented in this encounter [facility] HealthcareEvaluation note* Diagnosis Hypercholesterolemia ([facility]/HCC)- Primary Pure hypercholesterolemia Acute non-recurrent pansinusitis- Primary Unspecified convulsions ([facility]) documented in this encounter [facility] HealthcareEvaluation note* Diagnosis Hypercholesterolemia ([facility])- Primary Pure hypercholesterolemia Rib contusion, left, subsequent encounter- Primary documented in this encounter [facility] HealthcareEvaluation note* Diagnosis Hypercholesterolemia ([facility]/HCC)- Primary Pure hypercholesterolemia Fall, initial encounter- Primary Rib pain on left side Fall, initial encounter Rib pain on left side documented in this encounter [facility] HealthcareEvaluation note* Diagnosis Onycholysis due to Pseudomonas infection- Primary documented in this encounter [facility] HealthcareEvaluation note* Diagnosis Onycholysis due to Pseudomonas infection documented in this encounter [facility] HealthcareEvaluation note* Diagnosis Onycholysis due to Pseudomonas infection documented in this encounter [facility] HealthcareEvaluation note* Diagnosis Hypercholesterolemia ([facility]/HCC)- Primary Pure hypercholesterolemia Medicare annual wellness visit, subsequent- Primary Hypersomnia Hypersomnia, unspecified Obstructive sleep apnea syndrome Obstructive sleep apnea (adult) (pediatric) Seizure (CMS/HCC) Other convulsions Benign essential hypertension (CMS/HCC) Essential hypertension, benign Diverticulosis Diverticulosis of colon (without mention of hemorrhage) Cervical spondylosis Cervical spondylosis without myelopathy Age-related osteoporosis without current pathological fracture (CMS/HCC) Acute seasonal allergic rhinitis due to pollen Allergic conjunctivitis of both eyes Other chronic allergic conjunctivitis Hypercholesterolemia (CMS/HCC) Pure hypercholesterolemia Macular degeneration of both eyes, unspecified type ACP (advance care planning) Other specified counseling [facility] Diagnosis Hypercholesterolemia (CMS/HCC)- Primary Pure hypercholesterolemia Acute frontal sinusitis, recurrence not specified- Primary [facility] Diagnosis Hypercholesterolemia (CMS/HCC)- Primary Pure hypercholesterolemia Seborrheic keratosis Actinic keratosis Melanocytic nevus of trunk Benign neoplasm of skin of trunk, except scrotum Melanocytic nevus of left upper extremity Melanocytic nevus of right upper extremity Neurofibroma Other benign neoplasm of connective and other soft tissue of unspecified site Sebaceous hyperplasia of face Onycholysis due to Pseudomonas infection [facility] Diagnosis Hypercholesterolemia (CMS/HCC)- Primary Pure hypercholesterolemia Acute non-recurrent ethmoidal sinusitis- Primary [facility] Diagnosis Hypercholesterolemia- Primary Pure hypercholesterolemia Benign essential hypertension- Primary Essential hypertension, benign Acute seasonal allergic rhinitis due to pollen [facility] N[facility]ative - Reported* Type Description Date Medical History breast cancer Medical History HTN Surgical History lumpectomy Surgical History rotator cuff Hospitalization History See past surgical hx Knimbus Other Summary Purpose Family History No Family History Records FoundNo Family History Records FoundNo Family History Records Found Advance Directives No Advanced Directives Records FoundNo Advanced Directives Records FoundNo Advanced Directives Records Found Additional Source Comments INFORMATION SOURCE (unrecogn ized section and content) DATE CREATED AUTHOR 03/19/2022 [facility] DATE CREATED AUTHOR AUTHOR'S ORGANIZ ATION 09/17/2024 [facility] DATE CREATED AUTHOR AUTHOR'S ORGANIZ ATION 03/19/2025 [facility] EPIC REASON FOR VISIT (unrecogniz ed section and content) Reason Comments Follow-up Reason Comments Medicare Annual Wellness Visit Subsequen t Reason Comments Hypertension Care Teams (unrecognized sec tion and content) Outside Repairer Special Relationship Specialty Start Date End Date Helen Medina MD [address] [place] [address] PCP - General Family Medicine 02/16/23 Helen Medina MD [address] [place] [address] PCP - ACO Reach 02/16/23 Outside Repairer Special Relationship Specialty Start Date End Date Helen Medina MD [address] [place] [address] PCP - General Family Medicine 02/16/23 Helen Medina MD [address] [place] [address] PCP - ACO Reach 02/16/23 Outside Repairer Special Relationship Specialty Start Date End Date Helen Medina MD [address] [place] [address] PCP - General Family Medicine 02/16/23 Helen Medina MD [address] [place] [address] PCP - ACO Reach 01/24/24 Outside Repairer Special Relationship Specialty Start Date End Date Helen Medina MD [address] [place] [address] PCP - General Family Medicine 02/16/23 Helen Medina MD [address] [place] [address] PCP - ACO Reach 01/24/24 Outside Repairer Special Relationship Specialty Start Date End Date Helen Medina MD [address] [place] [address] PCP - General Family Medicine 02/16/23 Helen Medina MD [address] [place] [address] PCP - ACO Reach 01/24/24 Outside Repairer Special Relationship Specialty Start Date End Date Helen Medina MD [address] [place] [address] PCP - General Family Medicine 02/16/23 Helen Medina MD [address] [facility] [address] [place] [address] PCP - ACO Reach 01/24/24 Outside Repairer Special Relationship Specialty Start Date End Date Helen Medina MD [address] [facility] [address] [place] [address] PCP - General Family Medicine 02/16/23 Helen Medina MD [address] [facility] [address] [place] [address] PCP - ACO Reach 01/24/24 Outside Repairer Special Relationship Specialty Start Date End Date Helen Medina MD [address] [facility] [address] [place] [address] PCP - General Family Medicine 02/16/23 Helen Medina MD [address] [place] [address] PCP - ACO Reach 01/24/24 Outside Repairer Special Relationship Specialty Start Date End Date Helen Medina MD [address] [place] [address] PCP - General Family Medicine 02/16/23 Helen Medina MD [address] [place] [address] PCP - ACO Reach 01/24/24 Outside Repairer Special Relationship Specialty Start Date End Date Helen Medina MD [address] [place] [address] PCP - General Family Medicine 02/16/23 Helen Medina MD [address] [place] [address] PCP - ACO Reach 01/24/24 Outside Repairer Special Relationship Specialty Start Date End Date Helen Medina MD [address] [place] [address] PCP - General Family Medicine 02/16/23 Helen Medina MD [address] [place] [address] PCP - ACO Reach 01/24/24 Outside Repairer Special Relationship Specialty Start Date End Date Helen Medina MD [address] [place] [address] PCP - General Family Medicine 02/16/23 Helen Medina MD [address] [place] [address] PCP - ACO Reach 01/24/24 Outside Repairer Special Relationship Specialty Start Date End Date Hleen Medina MD [address] [place] [address] PCP - General Family Medicine 02/16/23 Helen Medina MD [address] [facility] [address] [place] [address] PCP - ACO Reach 01/24/24 Outside Repairer Special Relationship Specialty Start Date End Date Helen Medina MD 112 [facility] [address] [place] [address] PCP - General Family Medicine 02/16/23 Helen Medina MD 112 [facility] [address] [place] [address] PCP - ACO Reach 01/24/24 FOR RECORDS PERTAINING TO PATIENTS WHO ARE OR HAVE BEEN ENROLLED IN A CHEMICAL DEPENDENCY/SUBSTANCEABUSE PROGRAM, SOME INFORMATION MAY BE OMITTED. This clinical summary was aggregated from multiple sources. Caution should be exercised in using it in the provision of clinical care. This summary normalizes information from multiple sources, and as a consequence, information in this document may materially change the coding, format and clinical context of patient data. In addition, data may be omitted in some cases. CLINICAL DECISIONS SHOULD BE BASED ON THE PRIMARY CLINICAL RECORDS. [employer] [facility]. provides no warranty or guarantee of the accuracy or completeness of information in this document.
== END 2025-03-19 07:41 | disposition home or self-care (01) ==
LOC: MAMMO 07:44
PROVIDERS: PCP Family Medicine; Visit Provider Family Medicine
DX: Z12.31 Encounter for screening mammogram for malignant neoplasm of breast (principal); Z85.3 Personal history of malignant neoplasm of breast
CPT/HCPCS: 77063; 77067

== ENCOUNTER 2025-05-16 16:27 | Emergency (ER) | payer MEDICARE, OTHER, SELFPAY ==
[2025-05-16] VITALS (28 sets, daily range): BP systolic 156–172; BP diastolic 70–132; PULSE 107–120; TEMP 37.1; O2SAT 94–97
--- NOTE | 2025-05-16 16:30 | CT_ITS ---
The [address] [address] Patient Name: SON STROUD MRN: [id number] date: 1940 Sex: F Assigned Patient Location: ED.MAIN Current Patient Location: ED.MAIN Accession/Order Number: [id number] Exam Date: 05/16/2025 17:35 Report Date: 05/16/2025 18:23 At the request of: ALYCIA COLON DO Procedure: CT angio head CTA Head and Neck TECHNIQUE: Axial imaging of the head and neck with 2-D and 3-D reconstruction 100 cc of Omnipaque [address] exam was performed using one or more the following dose reduction techniques: Automated exposure control, adjustment of the MA and/or Kv according to patient size, or use of the iterative reconstruction technique. Stenoses were measured using the NASCET criteria. COMPARISON: None HISTORY: Fell. Head injury. Altered mental status The visualized aortic arch and great vessels are unremarkable. Subclavian arteries are patent No carotid dissection, critical stenosis or occlusion identified. No vertebral dissection, occlusion or abrupt cut off identified. The carotid siphons and vertebral basilar systems are patent. No intracranial aneurysm, dissection, abrupt cut off or critical stenosis identified.. . Groundglass interstitial changes in the lung apices. Apical pleural-parenchymal scarring. CT/CT angio head IMPRESSION: No occlusion, critical stenosis or dissection of the extracranial or intracranial circulation. Impression dictated by: Mehul Yee M.D. 05/16/2025 6:23 PM Dictation Location: [place] [address] Electronically authenticated by: [id number] Y Date: 05/16/2025 18:23
--- NOTE | 2025-05-16 16:30 | CT_ITS ---
The [address] [address] Patient Name: SON STROUD MRN: [id number] date: 1940 Sex: F Assigned Patient Location: ED.MAIN Current Patient Location: ED.MAIN Accession/Order Number: [id number] Exam Date: 05/16/2025 16:48 Report Date: 05/16/2025 17:33 At the request of: ALYCIA COLON DO Procedure: CT head/brain wo con Unenhanced head CT TECHNIQUE: Contiguous axial imaging of the head. The CT exam was performed using one or more the following dose reduction techniques: Automated exposure control, adjustment of the MA and/or Kv according to patient size, or use of the iterative reconstruction technique. COMPARISON: None HISTORY: Head injury. Altered mental status. History of breast cancer. VENTRICLES: Within normal limits ATROPHY: None BRAIN PARENCHYMA: Decreased density of the white matter is most consistent with chronic small vessel disease. Focal edema in the inferior portion of the left frontal lobe anteriorly with associated foci of parenchymal hemorrhage consistent with hemorrhagic contusions. Localized mass effect. HEMORRHAGE: Additional regions of increased density in the right cerebellar and occipital lobe regions concerning for subarachnoid hemorrhage. HERNIATION: No mass effect or herniation INFARCTION: No recent vascular distribution infarction is seen. EXTRA-AXIAL FLUID COLLECTIONS None MIDBRAIN: Unremarkable TRICE: Unremarkable MEDULLA: Unremarkable SINUSES: Unremarkable ORBITS: Grossly unremarkable MASTOIDS: Unremarkable BONY STRUCTURES and nondisplaced fracture posterior right scalp. ADDITIONAL FINDINGS: CT/CT head/brain wo con IMPRESSION: Foci of hemorrhagic contusion inferior portion of the anterior left frontal lobe with localized edema and mass effect. Subarachnoid blood in the occipital lobes bilaterally and the right cerebellar hemisphere. Right posterior scalp hematoma with underlying nondisplaced skull fracture. Impression dictated by: Mehul Yee M.D. 05/16/2025 5:33 PM Dictation Location: [place] [address] Electronically authenticated by: [id number] Y Date: 05/16/2025 17:33
--- NOTE | 2025-05-16 16:30 | CT_ITS ---
The [address] [address] Patient Name: SON STROUD MRN: [id number] date: 1940 Sex: F Assigned Patient Location: ED.MAIN Current Patient Location: ED.MAIN Accession/Order Number: [id number] Exam Date: 05/16/2025 16:48 Report Date: 05/16/2025 17:35 At the request of: ALYCIA COLON DO Procedure: CT cervical spine wo con CT Cervical Spine withoutcontrast TECHNIQUE: Axial imaging with 2-D and 3-D reconstruction. The CT exam was performed using one or more the following dose reduction techniques: Automated exposure control, adjustment of the MA and/or Kv according to patient size, or use of the iterative reconstruction technique. COMPARISON: None HISTORY: Head injury. Altered mental status POST SURGERY CHANGES: None BONY ALIGNMENT: Adequate BONY SPINAL CANAL: Patent central bony canal FRACTURE: No acute displaced cervical spine fracture. Fracture of the posterior right skull. BONY LESIONS: None SOFT TISSUES: Unremarkable DEGENERATIVE CHANGES: Extensive mid cervical degeneration. LUNG APICES: Unremarkable ADDITIONAL FINDINGS: CT/CT cervical spine wo con IMPRESSION: No acute cervical spine fracture. Right the posterior skull base fracture. Impression dictated by: Mehul Yee M.D. 05/16/2025 5:35 PM Dictation Location: [facility] Electronically authenticated by: [id number] Y Date: 05/16/2025 17:35
--- NOTE | 2025-05-16 16:30 | XR_ITS ---
The [address] [address] Patient Name: SON STROUD MRN: [id number] date: 1940 Sex: F Assigned Patient Location: ED.MAIN Current Patient Location: ED.MAIN Accession/Order Number: [id number] Exam Date: 05/16/2025 16:48 Report Date: 05/16/2025 17:27 At the request of: ALYCIA COLON DO Procedure: XR chest 1V Plain film chest Single view HISTORY: Altered mental status. Head injury. COMPARISON: None FINDINGS: SUPPORT DEVICES: None POSTSURGICAL CHANGES: None HEART: Within normal limits PULMONARY ALYSSIA: Within normal limits MEDIASTINUM: Unremarkable LUNGS AND PLEURA: No acute lung process, pleural effusion or pneumothorax identified. Minor basilar interstitial changes BONY STRUCTURES: Intact ADDITIONAL FINDINGS None XR/XR chest 1V IMPRESSION: No acute process. Impression dictated by: Mehul Yee M.D. 05/16/2025 5:27 PM Dictation Location: [facility] Electronically authenticated by: [id number] Y Date: 05/16/2025 17:27
--- NOTE | 2025-05-16 16:30 | ECG_ITS ---
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
--- NOTE | 2025-05-16 16:30 | CT_ITS ---
The [address] [address] Patient Name: SON STROUD MRN: [id number] date: 1940 Sex: F Assigned Patient Location: ED.MAIN Current Patient Location: ED.MAIN Accession/Order Number: [id number] Exam Date: 05/16/2025 17:35 Report Date: 05/16/2025 18:23 At the request of: ALYCIA COLON DO Procedure: CT angio head CTA Head and Neck TECHNIQUE: Axial imaging of the head and neck with 2-D and 3-D reconstruction 100 cc of Omnipaque [address] exam was performed using one or more the following dose reduction techniques: Automated exposure control, adjustment of the MA and/or Kv according to patient size, or use of the iterative reconstruction technique. Stenoses were measured using the NASCET criteria. COMPARISON: None HISTORY: Fell. Head injury. Altered mental status The visualized aortic arch and great vessels are unremarkable. Subclavian arteries are patent No carotid dissection, critical stenosis or occlusion identified. No vertebral dissection, occlusion or abrupt cut off identified. The carotid siphons and vertebral basilar systems are patent. No intracranial aneurysm, dissection, abrupt cut off or critical stenosis identified.. . Groundglass interstitial changes in the lung apices. Apical pleural-parenchymal scarring. CT/CT angio neck IMPRESSION: No occlusion, critical stenosis or dissection of the extracranial or intracranial circulation. Impression dictated by: Mehul Yee M.D. 05/16/2025 6:23 PM Dictation Location: [place] [address] Electronically authenticated by: [id number] Y Date: 05/16/2025 18:23
--- OUTSIDE RECORDS SUMMARY | 2025-05-16 16:41 | XMS_ITS | Clinical Summary ---
Author Organization [facility] Address [address] [place], [place] [id number] Care Team Providers Care Chemical Laboratory Tester Name Role Phone Helen Alicea MD Primary Care Provider [phone] Allergies No known active allergies Social History Tobacco Use Types Packs/Day Years Used Date Smoking Tobacco: Never Assessed Comments Unknown Sex and Gender Information Value Date Recorded Sex Assigned at Not on file Legal Sex Female 1:10 PM EDT Gender Identity Not on file Sexual Orientation Not on file Plan of Treatment Not on file Insurance MEDICARE [facility] Care Teams Chemical Laboratory Tester Relationship Specialty Start Date End Date Helen Alicea MD [address] [place] [id number] PCP - General Family Medicine 05/17/16
--- OUTSIDE RECORDS SUMMARY | 2025-05-16 16:41 | XMS_ITS | Encounter Summary ---
Author Organization [facility] Address [address] [place] [address] Care Team Providers Care Senior Mechanical Engineer Name Role Phone Helen Alicea MD Primary Care Provider [phone] Helen Alicea MD Unavailable Encounter Details Date Type Department Care Team (Late st Contact Info) Description 05/15/2024 Orders Only [facility] [address] [place] [phone] Lvaonne Vizcaino LPN [address] [place] [address] Medicare annual wellness visit, subsequent; Age-related osteoporosis without current pathological fracture ; Estrogen deficiency Social History Tobacco Use Types Packs/Day Years Used Date Smoking Tobacco: Never Smokeless Tobacco: Never Alcohol Use Standard Drinks/Week Comments Never 0 (1 standard drink = 0.6 oz pur e alcohol) PHQ-2 Answer Date Recorded Patient Health Questionnaire-2 Score 0 06/06/2023 Comments Unknown Sex and Gender Information Value Date Recorded Sex Assigned at Not on file Legal Sex Female 7:24 PM EDT Gender Identity Not on file Sexual Orientation Not on file documented as of this encounter Plan of Treatment Upcoming Encounters Date Type Department Care Team (Late st Contact Info) Description 09/08/2025 8:00 AM EST Office Visit [facility] [address] [place] [phone] Tonia Cazares PA [address] [place] [address] 11/18/2025 9:20 AM EST Office Visit [facility] [place] [facility] [address] [place] [address] Toyin Zuleta, AIRCRAFT STRUCTURAL REPAIRER-ADMINISTRATIVE OFFICE ASSISTANT [address] [place] [address] documented as of this encounter Visit Diagnoses Diagnosis Medicare annual wellness visit, subsequent Age-related osteoporosis without current pathological fracture Estrogen deficiency Other ovarian failure documented in this encounter Additional Health Concerns Assessment Noted Time PHQ-9 Depression Total Score: 0 06/06/20 23 8:00 AM EDT documented as of this encounter Care Teams Senior Mechanical Engineer Relationship Specialty Start Date End Date Helen Alicea MD 112 [facility] 110 [place] [address] PCP - General Family Medicine 02/16/23 Helen Alicea MD [address] [facility] [address] [place] [address] PCP - ACO Reach 01/24/24 documented as of this encounter
--- OUTSIDE RECORDS SUMMARY | 2025-05-16 16:41 | XMS_ITS | Encounter Summary ---
Author Organization [facility] Address [address] [facility] [place] [address] Care Team Providers Care Brush Machine Setter Name Role Phone Helen Alicea MD Primary Care Provider [phone] Helen Alicea MD Unavailable Encounter Details Date Type Department Care Team (Late st Contact Info) Description 11/13/2024 Abstract [facility] [place] [facility] [address] [facility] [address] [place] [phone] Helen Alicea MD [address] [facility] [address] [place] [address] Social History Tobacco Use Types Packs/Day Years Used Date Smoking Tobacco: Never Smokeless Tobacco: Never Alcohol Use Standard Drinks/Week Comments Never 0 (1 standard drink = 0.6 oz pur e alcohol) PHQ-2 Answer Date Recorded Patient Health Questionnaire-2 Score 0 09/12/2024 Comments Unknown Sex and Gender Information Value Date Recorded Sex Assigned at Not on file Legal Sex Female 7:24 PM EDT Gender Identity Not on file Sexual Orientation Not on file documented as of this encounter Plan of Treatment Upcoming Encounters Date Type Department Care Team (Late st Contact Info) Description 09/08/2025 8:00 AM EST Office Visit [facility] [place] [facility] [address] [facility] [address] [place] [phone] Tonia Cazares PA [address] [facility] [address] [place] [address] 11/18/2025 9:20 AM EST Office Visit [facility] [address] [place] [address] Toyin Zuleta, UX SPECIALIST-PRESS PIPE INSPECTOR [address] [place] [address] documented as of this encounter Visit Diagnoses Not on filedocumented in this encounter Additional Health Concerns Assessment Noted Time PHQ-9 Depression Total Score: 0 06/06/20 23 8:00 AM EDT documented as of this encounter Care Teams Brush Machine Setter Relationship Specialty Start Date End Date Helen Alicea MD [address] [facility] [address] [place] [address] PCP - General Family Medicine 02/16/23 Helen Alicea MD [address] [facility] [address] [place] [address] PCP - ACO Reach 01/24/24 documented as of this encounter
--- OUTSIDE RECORDS SUMMARY | 2025-05-16 16:41 | XMS_ITS | Encounter Summary ---
Author Organization [facility] Address [address] [place] [address] Care Team Providers Care Cream Ripener Name Role Phone Helen Alicea MD Primary Care Provider [phone] Helen Alicea MD Unavailable Encounter Details Date Type Department Care Team (Late st Contact Info) Description 09/12/2024 Abstract [facility] [address] [place] [address] Helen Alicea MD [address] [facility] [address] [place], [place] [id number] Social History Tobacco Use Types Packs/Day Years [...] on file documented as of this encounter Functional Status * Over the past 2 weeks, how often have you been bothered by any of the following problems? Question Answer Date of Assessment Author Little interest or pleasure in doing things Not at all 09/12/2024 12:00 PM EST Yareli Plaza MA Feeling down, depressed, or hopeless Not at all 09/12/2024 12:00 PM EST Yareli Plaza MA Patient Health Questionnaire -2 Score 0 09/12/2024 12:00 PM EST Yareli Plaza MA documented as of this encounter Plan of Treatment Upcoming Encounters Date Type Department Care Team (Late st Contact Info) Description 09/08/2025 8:00 AM EST Office Visit [facility] [address] [place] [address] Tonia Cazares PA [address] [place] [address] 11/18/2025 9:20 AM EST Office Visit [facility] [address] [place] [address] Toyin Zuleta, NETWORK SYSTEMS ENGINEER-TANK TRUCK DRIVER [address] [place] [address] documented as of this encounter Visit Diagnoses Not on filedocumented in this encounter Additional Health Concerns Assessment Noted Time PHQ-9 Depression Total Score: 0 06/06/20 8:00 AM EDT documented as of this encounter Care Teams Cream Ripener Relationship Specialty Start Date End Date Helen Alicea MD [address] [facility] 110 [place] [address] PCP - General Family Medicine 02/16/23 Helen Alicea MD [address] [facility] 110 [place] [address] PCP - ACO Reach 01/24/24 documented as of this encounter
--- OUTSIDE RECORDS SUMMARY | 2025-05-16 16:42 | XMS_ITS | Encounter Summary ---
Author Organization [facility] Address [address] [facility] [place] [address] Care Team Providers Care Event Specialist Name Role Phone Helen Medina MD Primary Care Provider [phone] Helen Medina MD Unavailable Encounter Details Date Type Department Care Team (Late st Contact Info) Description 03/18/2024 Clinisync Result Encounter NOMS External Department Unsolicited Helen Medina MD [address] [facility] 110 [place], [place] [id number] Social History Tobacco Use Types Packs/Day Years [...] 8:00 AM EST Office Visit [facility] [address] [facility] 110 [place] [address] Tonia Cazares PA [address] [place] [address] [place], [place] [address] 11/18/2025 9:20 AM EST Office Visit [facility] [address] [place] [phone] Felter, Toyin A, HASH SLINGER-DOCUMENTATION LEAD [address] [place] [address] documented as of this encounter Procedures Procedure Name Priority Date/Time Associated Diagnosis Comments MM TOMOSYNTHESIS SCREENING BI 03/18/2024 9:14 AM EDT documented in this encounter Results * MM TOMOSYNTHESIS SCREENING BI (03/18/2024 9:14 AM EDT) Anatomical Region Laterality Modality Other 03/18/2024 9:14 AM EDT Narrative 03/18/2024 9:15 AM EDT The [address] [address] Mammography Report Signed Patient: SON STROUD MR#: [id number] : 1940 Acct:[id number] Age/Sex: 84 / F ADM Date: 03/18/24 Loc: MAMMO Attending Dr: HELEN MEDINA Ordering Physician: HELEN MEDINA Results: Date of Service: 03/18/24 Follow Up: Procedure(s): MM tomosynthesis screening BI Accession Number(s): [id number] cc: HELEN MEDINA Patient Name: SON STROUD MR#: [id number] : 1940 Exam Date: 03/18/2024 Ordering Doctor: DR HELEN MEDINA M.D. RADIOLOGY REPORT PROCEDURE: MM TOMOSYNTHESIS SCREENING BI COMPARISON: MG MAMM SCREEN 3D NIC CAD, 03/16/2022. MM TOMOSYNTHESIS SCREENING BI, 03/17/2023. INDICATIONS: screening Calculator Name NCI Breast Cancer Risk Assessment Tool 5 Year Breast Cancer Risk Not Applicable. Lifetime Breast Cancer Risk Not Applicable. Personal Breast Cancer Yes, lt intraductal comeocarcinoma with necrosis Personal Ovarian Cancer No Treatments lumpectomy and radiation therapy Family Cancers None LOCATION: The [facility] BREAST COMPOSITION: There are scattered areas of fibroglandular density. FINDINGS: DIAGNOSTIC CATEGORY 2--BENIGN FINDING. NO CHANGE FROM COMPARISON. Scattered benign-appearing calcifications are present. Scattered benign-appearing lymph nodes are present. RIGHT BREAST: No significant suspicious finding. LEFT BREAST: No significant suspicious finding. Asymmetrically small, stable. Area of architectural distortion upper outer quadrant, deep to a linear scar marker, unchanged. RECOMMENDATIONS: ROUTINE MAMMOGRAM AND CLINICAL EVALUATION IN 12 MONTHS. PLEASE NOTE: A NORMAL MAMMOGRAM DOES NOT EXCLUDE THE POSSIBILITY OF BREAST CANCER. A CLINICALLY SUSPICIOUS PALPABLE LUMP SHOULD BE BIOPSIED. Dictated by: Pato Wolfe MD on 03/18/2024 at 09:11 Approved by: Pato Wolfe MD on 03/18/2024 at 09:14 Dictated By: Pato Wolfe M.D. Signed By: 03/18/24914 DD/ 3 TD/TT: Timber Girdler: Procedure Note Radiology, Radiologist, MD - 03/18/2024 [place] [address] Mammography Report Signed Patient: SON STROUD LMR#: [id number] : 1940cct:[id number] Age/Sex: 84 / FADM Date: 03/18/24 Loc: MAMMO Attending Dr: HELEN MEDINA Ordering Physician: Albert MEDINAults: Date of Service: 03/18/24Follow Up: Procedure(s): MM tomosynthesis screening BI Accession Number(s): [id number] cc: HELEN MEDINA Patient Name: SON STROUD MR#: [id number] : 1940 Exam Date: 03/18/2024 Ordering Doctor: DR HELEN MEDINA M.D. RADIOLOGY REPORT PROCEDURE: MM TOMOSYNTHESIS SCREENING BI COMPARISON: MG MAMM SCREEN 3D NIC CAD, 03/16/2022. MM TOMOSYNTHESIS SCREENING BI, 03/17/2023. INDICATIONS: screening Calculator Name NCI Breast Cancer Risk Assessment Tool 5 Year Breast Cancer Risk Not Applicable. Lifetime Breast Cancer Risk Not Applicable. Personal Breast Cancer Yes, lt intraductal comeocarcinoma withnecrosis Personal Ovarian Cancer No Treatments lumpectomy and radiation therapy Family Cancers None LOCATION: [facility] BREAST COMPOSITION: There are scattered areas of fibroglandulardensity. FINDINGS: DIAGNOSTIC CATEGORY 2--BENIGN FINDING. NO CHANGE FROM COMPARISON. Scattered benign-appearing calcifications are present. Scattered benign-appearing lymph nodes are present. RIGHT BREAST: No significant suspicious finding. LEFT BREAST: No significant suspicious finding. Asymmetrically small, stable. Area of architectural distortion upper outer quadrant, deep to a linear scar marker, unchanged. RECOMMENDATIONS: ROUTINE MAMMOGRAM AND CLINICAL EVALUATION IN 12 MONTHS. PLEASE NOTE: A NORMAL MAMMOGRAM DOES NOT EXCLUDE THE POSSIBILITY OFBREAST CANCER. A CLINICALLY SUSPICIOUS PALPABLE LUMP SHOULD BE BIOPSIED. Dictated by: Pato Wolfe MD on 03/18/2024 at 09:11 Approved by: Pato Wolfe MD on 03/18/2024 at 09:14 Dictated By: aPto Wolfe M.D. Signed By:03/18/24914 DD/ 3 TD/TT: Timber Girdler: Helen Medina MD [facility] Final Result documented in this encounter Visit Diagnoses Not on filedocumented in this encounter Additional Health Concerns Assessment Noted Time PHQ-9 Depression Total Score: 0 06/06/20 23 8:00 AM EDT documented as of this encounter Care Teams Event Specialist Relationship Specialty Start Date End Date Helen Medina MD [address] [address] PCP - General Family Medicine 02/16/23 Helen Medina MD [address] [address] PCP - ACO Reach 01/24/24 documented as of this encounter
--- OUTSIDE RECORDS SUMMARY | 2025-05-16 16:42 | XMS_ITS | Encounter Summary ---
Author Organization [facility] Address [address] [facility] [place] [address] Care Team Providers Care Field Staff Name Role Phone Helen Alicea MD Primary Care Provider [phone] Helen Alicea MD Unavailable Helen Alicea MD Unavailable Encounter Details Date Type Department Care Team (Late st Contact Info) Description 06/08/2023 Abstract [facility] [address] [facility] 110 [place] [address] Helen Alicea MD [address] [facility] 110 [place] [address] Social History Tobacco Use Types Packs/Day Years [...] Description 09/08/2025 8:00 AM EST [facility] [address] [facility] 110 [place] [address] Tonia Cazares PA [address] [facility] 110 [place] [address] 11/18/2025 9:20 AM EST Office Visit [facility] [address] [place] [address] Toyin Zuleta, SENIOR SOFTWARE SYSTEMS ENGINEER-SUPERVISOR REWORK [address] [place] [address] documented as of this encounter Visit Diagnoses Not on filedocumented in this encounter Additional Health Concerns Assessment Noted Time PHQ-9 Depression Total Score: 0 06/06/20 8:00 AM EDT documented as of this encounter Care Teams Field Staff Relationship Specialty Start Date End Date Helen Alicea MD [address] [facility] 110 [place] [address] PCP - General Family Medicine 02/16/23 Helen Alicea MD [address] [facility] 110 [place] [address] PCP - ACO Reach 02/16/23 11/23/23 Helen Alicea MD [address] [facility] 110 [place] [address] PCP - ACO Reach 01/24/24 documented as of this encounter
--- OUTSIDE RECORDS SUMMARY | 2025-05-16 16:42 | XMS_ITS | Encounter Summary ---
Author Organization [facility] Address [address] [place] [address] Care Team Providers Care Salon Customer Experience Specialist Name Role Phone Helen Alicea MD Primary Care Provider [phone] Helen Alicea MD Unavailable Encounter Details Date Type Department Care Team (Late Contact Info) Description 12/06/2023 Orders Only [facility] [address] [facility] 110 [place] [address] Unallocated, Noms Provider, [address] [place] [address] Social History Tobacco Use Types Packs/Day Years [...] 8:00 AM EST Office Visit [facility] [address] [facility] 110 [place] [address] Tonia Cazares PA [address] [facility] 110 [place] [address] 11/18/2025 9:20 AM EST Office Visit [facility] [address] [place] [address] Toyin Zuleta, CHIEF CONTROLLER CENTER-WOOD BUCKER [address] [place] [address] documented as of this encounter Procedures Procedure Name Priority Date/Time Associated Diagnosis Comments SCANNED LABS Routine 12/05/2023 1:54 PM EDT documented in this encounter Results * SCANNED LABS (12/05/2023 1:54 PM EDT) us Noms Provider Unallocated LAB CHG PERFORMABLE S Final Result documented in this encounter Visit Diagnoses Not on filedocumented in this encounter Additional Health Concerns Assessment Noted Time PHQ-9 Depression Total Score: 0 06/06/20 23 8:00 AM EDT documented as of this encounter Care Teams Salon Customer Experience Specialist Relationship Specialty Start Date End Date Helen Alicea MD [address] [facility] 110 [place] [address] PCP - General Family Medicine 02/16/23 Helen Alicea MD [address] [facility] 110 [place] [address] PCP - ACO Reach 01/24/24 documented as of this encounter
--- OUTSIDE RECORDS SUMMARY | 2025-05-16 16:42 | XMS_ITS | Encounter Summary ---
Author Organization [facility] Address [address] [facility] [place] [address] Care Team Providers Care Library Science Professor Name Role Phone Helen Alicea MD Primary Care Provider [phone] Helen Alicea MD Unavailable Helen Alicea MD Unavailable Encounter Details Date Type Department Care Team (Late st Contact Info) Description 05/15/2023 Abstract [facility] [place] [facility] [address] [facility] 110 [place] [address] Helen Alicea MD [address] [facility] 110 [place], [place] [address] Social History Tobacco Use Types Packs/Day Years Used Date Smoking Tobacco: Never Smokeless Tobacco: Never Alcohol Use Standard Drinks/Week Comments Never 0 (1 standard drink = 0.6 oz pur e alcohol) Comments Unknown Sex and Gender Information Value Date Recorded Sex Assigned at Not on file Legal Sex Female 7:24 PM EDT Gender Identity Not on file Sexual Orientation Not on file documented as of this encounter Plan of Treatment Upcoming Encounters Date Type Department Care Team (Late st Contact Info) Description 09/08/2025 8:00 AM EST Office Visit [facility] [place] [facility] [address] [facility] 110 [place] [address] Tonia Cazares PA [address] [facility] 110 [place] [address] 11/18/2025 9:20 AM EST Office Visit [facility] [address] [place] [address] Toyin Zuleta, SPOT REMOVER-TUGBOAT ENGINEER [address] [place] [place] [address] documented as of this encounter Visit Diagnoses Not on filedocumented in this encounter Care Teams Library Science Professor Relationship Specialty Start Date End Date Helen Alicea MD [address] [facility] [address] [place] [address] PCP - General Family Medicine 02/16/23 Helen Alicea MD [address] [facility] 110 [place] [address] PCP - ACO Reach 02/16/23 11/23/23 Helen Alicea MD [address] [place] [address] [place] [address] PCP - ACO Reach 01/24/24 documented as of this encounter
--- OUTSIDE RECORDS SUMMARY | 2025-05-16 16:42 | XMS_ITS | Encounter Summary ---
Author Organization [facility] Address [address] [facility] [place] [address] Care Team Providers Care Terrazzo Supervisor Name Role Phone Helen Medina MD Primary Care Provider [phone] Helen Medina MD Unavailable Helen Medina MD Unavailable Encounter Details Date Type Department Care Team (Late st Contact Info) Description 09/08/2023 Clinisync Result Encounter NOMS External Department Unsolicited Helen Medina MD [address] [facility] 110 [place], [place] [phone] Social History Tobacco Use Types Packs/Day Years [...] 8:00 AM EST Office Visit [facility] [address] [facility] 110 [place] [address] Tonia Cazares PA [address] [facility] 110 [place] [address] 11/18/2025 9:20 AM EST Office Visit [facility] [address] [place] [address] Toyin Zuleta Robert, CRIMPING MACHINE OPERATOR FOR METAL-REAL ESTATE RECRUITER [address] [place] [address] [place] [address] documented as of this encounter Procedures Procedure Name Priority Date/Time Associated Diagnosis Comments XR DEXA AXIAL SKELETON 09/08/2023 8:49 AM EST documented in this encounter Results * XR DEXA AXIAL SKELETON (09/08/2023 8:49 AM EST) Anatomical Region Laterality Modality Other 09/08/2023 8:49 AM EST Narrative 09/08/2023 8:52 AM EST [address] [address] XRay Report Signed Patient: MEI STROUD MR#: [id number] : 1940 Acct:[id number] Age/Sex: 83 / F ADM Date: 09/08/23 Loc: SCOUT Attending Dr: HELEN MEDINA Ordering Physician: HELEN MEDINA Date of Service: 09/08/23 Procedure(s): XR DEXA axial skeleton Accession Number(s): [id number] cc: HELEN MEDINA [address] [address] Patient Name: MEI STROUD MRN: [id number] date: 1940 Sex: F Assigned Patient Location: [facility] Current Patient Location: [facility] Accession/Order Number: [id number] Exam Date: 09/08/2023 08:00 Report Date: 09/08/2023 08:49 At the request of: HELEN MEDINA Procedure: XR DEXA axial skeleton EXAMINATION: XR DEXA axial skeleton, 09/08/2023 8:00 AM EST HISTORY: Age Related Osteoporosis COMPARISON: 2020, 2018, 2015, 2011. TECHNIQUE: Dual-energy X-ray absorptiometry (DEXA) bone density study performed for the axial skeleton. HISTORY: Age Related Osteoporosis FINDINGS: Bone mineral density of the lumbar spine L1-L4 measures 1.032 g/sq cm. T score -1.2. WHO classification: Osteopenia. Lowest bone mineral density right femoral neck measures 0.762 g/sq cm. T score -2.0. WHO classification: Osteopenia XR/XR DEXA axial skeleton IMPRESSION: Osteopenia. Moderate fracture risk Electronically authenticated by: MOISES BAH Date: 09/08/2023 08:49 Dictated By: Moises Bah M.D. Signed By: 09/08/23 0852 DD/ 0849 TD/TT: Lawn And Garden Technician: Procedure Note Radiology, Radiologist, MD - 09/08/2023 [place] [address] XRay Report Signed Patient: MEI STROUD LMR#: [id number] : 1940cct:[id number] Age/Sex: 83 / FADM Date: 09/08/23 Loc: RAD Attending Dr: HELEN MEDINA Ordering Physician: HELEN MEDINA Date of Service: 09/08/23 Procedure(s): XR DEXA axial skeleton Accession Number(s): [id number] cc: HELEN MEDINA [place] [id number] Patient Name: MEI STROUD [facility]N: [facility]:[id number] date: 1940 Sex: F Assigned Patient Location: [facility] Current Patient Location: [facility] Accession/Order Number: [id number] Exam Date: 09/08/2023 08:00 Report Date: 09/08/2023 08:49 At the request of: HELEN MEDINA Procedure: XR DEXA axial skeleton EXAMINATION: XR DEXA axial skeleton, 09/08/2023 8:00 AM EST HISTORY: Age Related Osteoporosis COMPARISON: 2020, 2018, 2014, 2012. TECHNIQUE: Dual-energy X-ray absorptiometry (DEXA) bone density study performed for the axial skeleton. HISTORY: Age Related Osteoporosis FINDINGS: Bone mineral density of the lumbar spine L1-L4 measures 1.032 g/sq cm. T score -1.2. WHO classification: Osteopenia. Lowest bone mineral density right femoral neck measures 0.762 g/sq cm. Tscore -2.0. WHO classification: Osteopenia XR/XR DEXA axial skeleton IMPRESSION: Osteopenia. Moderate fracture risk Electronically authenticated by: MOISES BAH Date: 09/08/2023 08:49 Dictated By: Moises Bah M.D. Signed By:09/08/2352 DD/ TD/TT: Lawn And Garden Technician: Helen Medina MD [facility] Final Result documented in this encounter Visit Diagnoses Not on filedocumented in this encounter Additional Health Concerns Assessment Noted Time PHQ-9 Depression Total Score: 0 06/06/20 8:00 AM EDT documented as of this encounter Care Teams Terrazzo Supervisor Relationship Specialty Start Date End Date Helen Medina MD [address] [facility] 110 [place] [address] PCP - General Family Medicine 02/16/23 Helen Medina MD 112 [facility] 110 [place] [address] PCP - ACO Reach 02/16/23 11/23/23 Helen Medina MD 112 [facility] 110 [place] [address] PCP - ACO Reach 01/24/24 documented as of this encounter
--- OUTSIDE RECORDS SUMMARY | 2025-05-16 16:42 | XMS_ITS | Encounter Summary ---
Author Organization [facility] Address [address] [facility] [place] [address] Care Team Providers Care Plastics Design Engineer Name Role Phone Helen Alicea MD Primary Care Provider [phone] Helen Alicea MD Unavailable Helen Alicea MD Unavailable Encounter Details Date Type Department Care Team (Late st Contact Info) Description 03/20/2023 Abstract [facility] [place] [facility] [address] [facility] 110 [place] [address] Helen Alicea MD [address] [facility] 110 [place] [address] Social History Tobacco Use Types Packs/Day Years [...] AM EST Office Visit [facility] [place] [facility] [address] [facility] 110 [place] [address] Tonia Cazares PA [address] [facility] 110 [place] [address] 11/18/2025 9:20 AM EST Office Visit [facility] [address] [place] [address] Toyin Zuleta, CIRCUIT DESIGN ENGINEER-CHILD CARE LEADER [address] [place] [address] documented as of this encounter Visit Diagnoses Not on filedocumented in this encounter Care Teams Plastics Design Engineer Relationship Specialty Start Date End Date Helen Alicea MD [address] [facility] [address] [place] [address] PCP - General Family Medicine 02/16/23 Helen Alicea MD [address] [facility] [address] [place] [address] PCP - ACO Reach 02/16/23 11/23/23 Helen Alicea MD [address] [facility] [address] [place] [address] PCP - ACO Reach 01/24/24 documented as of this encounter
--- OUTSIDE RECORDS SUMMARY | 2025-05-16 16:42 | XMS_ITS | Encounter Summary ---
Author Organization [facility] Address [address] [facility] [place] [address] Care Team Providers Care Biotech Production Specialist Name Role Phone Helen Alicea MD Primary Care Provider [phone] Helen Alicea MD Unavailable Encounter Details Date Type Department Care Team (Late Contact Info) Description 05/13/2024 Abstract [facility] [place] [facility] [address] [facility] 110 [place] [address] Helen Alicea MD [address] [facility] 110 [place] [address] Social History Tobacco Use Types Packs/Day Years [...] [facility] [place] [facility] [address] [facility] 110 [place] [address] Tonia Cazares PA [address] [facility] 110 [place] [address] 11/18/2025 9:20 AM EST Office Visit [facility] [address] [place] [address] Toyin Zuleta, QUALITY COORDINATOR-RIVETER AUTOMOBILE BRAKES [address] [place] [address] documented as of this encounter Visit Diagnoses Not on filedocumented in this encounter Additional Health Concerns Assessment Noted Time PHQ-9 Depression Total Score: 0 06/06/20 23 8:00 AM EDT documented as of this encounter Care Teams Biotech Production Specialist Relationship Specialty Start Date End Date Helen Alicea MD [address] [facility] 110 [place] [address] PCP - General Family Medicine 02/16/23 Helen Alicea MD [address] [facility] 110 [place] [address] PCP - ACO Reach 01/24/24 documented as of this encounter
--- OUTSIDE RECORDS SUMMARY | 2025-05-16 16:42 | XMS_ITS | Encounter Summary ---
Author Organization [facility] Address [address] [place] [address] Care Team Providers Care Burnt Lime Drawer Name Role Phone Helen Alicea MD Primary Care Provider [phone] Helen Alicea MD Unavailable Helen Alicea MD Unavailable Encounter Details Date Type Department Care Team (Late st Contact Info) Description 09/11/2023 Orders Only [facility] [address] [facility] [address] [place] [address] A, Unknown Practice [address] [place], [place] [id number] Social History Tobacco Use Types Packs/Day Years [...] AM EST Office Visit [facility] [address] [facility] [address] [place] [phone] Tonia Cazares PA [address] [facility] [address] [place], [place] [id number] 11/18/2025 9:20 AM EST Office Visit [facility] [address] [place] [address] Toyin Zuleta, FIRST LEVELER-WOOD EXPERIMENTAL MECHANIC [address] [place] [address] documented as of this encounter Procedures Procedure Name Priority Date/Time Associated Diagnosis Comments DEXA BONE DENSITY Routine 09/08/2023 10: 31 AM EST documented in this encounter Results * DEXA bone density (09/08/2023 10:31 AM EST) Anatomical Region Laterality Modality Body Radiographic Dolores ging us Unknown Practice A IMG DXA PROCEDURES Final Resu lt documented in this encounter Visit Diagnoses Not on filedocumented in this encounter Additional Health Concerns Assessment Noted Time PHQ-9 Depression Total Score: 0 06/06/20 23 8:00 AM EDT documented as of this encounter Care Teams Burnt Lime Drawer Relationship Specialty Start Date End Date Helen Alicea MD [address] [address] PCP - General Family Medicine 02/16/23 Helen Alicea MD [address] [facility] 110 [place] [address] PCP - ACO Reach 02/16/23 11/23/23 Helen Alicea MD [address] [facility] 110 [place] [address] PCP - ACO Reach 01/24/24 documented as of this encounter
--- OUTSIDE RECORDS SUMMARY | 2025-05-16 16:42 | XMS_ITS | Encounter Summary ---
Author Organization [facility] Address [address] [place] [address] Care Team Providers Care Traffic Control Technician Name Role Phone Helen Alicea MD Primary Care Provider [phone] Helen Alicea MD Unavailable Helen Alicea MD Unavailable Encounter Details Date Type Department Care Team (Late st Contact Info) Description 09/08/2023 Orders Only [facility] [address] [facility] 110 [place] [address] A, Unknown Practice [address] [place], [place] [phone] Social History Tobacco Use Types Packs/Day Years [...] AM EST Office Visit [facility] [address] [facility] [address] [place] [phone] Tonia Cazares PA [address] [facility] [address] [place], [place] [id number] 11/18/2025 9:20 AM EST Office Visit [facility] [address] [place] [address] Toyin Zuleta, OCCUPATIONAL PHYSICIAN-DOOR OPERATOR [address] [place] [address] documented as of this encounter Procedures Procedure Name Priority Date/Time Associated Diagnosis Comments DEXA BONE DENSITY Routine 09/08/2023 9:40 AM EST documented in this encounter Results * DEXA bone density (09/08/2023 9:40 AM EST) Anatomical Region Laterality Modality Body Radiographic Dolores ging us Unknown Practice A IMG DXA PROCEDURES Final Resu lt documented in this encounter Visit Diagnoses Not on filedocumented in this encounter Additional Health Concerns Assessment Noted Time PHQ-9 Depression Total Score: 0 06/06/20 23 8:00 AM EDT documented as of this encounter Care Teams Traffic Control Technician Relationship Specialty Start Date End Date Helen Alicea MD [address] [address] PCP - General Family Medicine 02/16/23 Helen Alicea MD [address] [address] PCP - ACO Reach 02/16/23 11/23/23 Helen Alicea MD [address] [address] PCP - ACO Reach 01/24/24 documented as of this encounter
--- OUTSIDE RECORDS SUMMARY | 2025-05-16 16:42 | XMS_ITS | Encounter Summary ---
Author Organization [facility] Address [address] [place] [address] Care Team Providers Care Tricot Knitting Machine Operator Name Role Phone Helen Alicea MD Primary Care Provider [phone] Helen Alicea MD Unavailable Helen Alicea MD Unavailable Encounter Details Date Type Department Care Team (Late st Contact Info) Description 07/10/2023 Abstract [facility] [address] [facility] 110 [place] [phone] Helen Alicea MD [address] [place] [facility] 110 [place] [address] Social History Tobacco Use Types Packs/Day Years Used Date Smoking Tobacco: Never Smokeless Tobacco: Never Tobacco Cessation:Counseling Given: Not Answered Alcohol Use Standard Drinks/Week Comments Never 0 [...] Visit [facility] [place] [address] [facility] 110 [place] [phone] Tonia Cazares PA [address] [place] [facility] 110 [place] [address] 11/18/2025 9:20 AM EST Office Visit [facility] [place] [facility] [address] [place] [address] Toyin Zuleta, HOGSHEAD LINER-CONSUMER LOAN OFFICER [address] [place] [address] documented as of this encounter Visit Diagnoses Not on filedocumented in this encounter Additional Health Concerns Assessment Noted Time PHQ-9 Depression Total Score: 0 06/06/20 8:00 AM EDT documented as of this encounter Care Teams Tricot Knitting Machine Operator Relationship Specialty Start Date End Date Helen Alicea MD [address] [facility] 110 [place] [address] PCP - General Family Medicine 02/16/23 Helen Alicea MD [address] [facility] 110 [place] [address] PCP - ACO Reach 02/16/23 11/23/23 Helen Alicea MD [address] [facility] 110 [place] [address] PCP - ACO Reach 01/24/24 documented as of this encounter
--- OUTSIDE RECORDS SUMMARY | 2025-05-16 16:42 | XMS_ITS | Encounter Summary ---
Author Organization [facility] Address [address] [facility] [address] [place] [address] Care Team Providers Care Steam Gigger Name Role Phone Helen Alicea MD Primary Care Provider [phone] Helen Alicea MD Unavailable Helen Alicea MD Unavailable Encounter Details Date Type Department Care Team (Late st Contact Info) Description 06/08/2023 Abstract [facility] [address] [facility] 110 [place] [phone] Helen Alicea MD [address] [facility] 110 [place] [address] Social History Tobacco Use Types Packs/Day Years [...] 8:00 AM EST [facility] [address] [email or web address] 110 [place] [phone] Tonia Cazares PA [address] [facility] 110 [place] [address] 11/18/2025 9:20 AM EST Office Visit [facility] [address] [place] [address] Toyin Zuleta, TECHNICAL ADMINISTRATOR-NETWORK CONTRACTOR [address] [place] [address] [place] [address] documented as of this encounter Visit Diagnoses Not on filedocumented in this encounter Additional Health Concerns Assessment Noted Time PHQ-9 Depression Total Score: 0 06/06/20 8:00 AM EDT documented as of this encounter Care Teams Steam Gigger Relationship Specialty Start Date End Date Helen Alicea MD [address] [facility] 110 [place] [address] PCP - General Family Medicine 02/16/23 Helen Alicea MD [address] [facility] 110 [place] [address] PCP - ACO Reach 02/16/23 11/23/23 Helen Alicea MD [address] [facility] 110 [place] [address] PCP - ACO Reach 01/24/24 documented as of this encounter
--- OUTSIDE RECORDS SUMMARY | 2025-05-16 16:43 | XMS_ITS | CCD ---
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 Washing Machine Mechanic Name Role Phone ADAM, DR PACKER Primary [...] OJEDA Attending Unavailable ALBA OJEDA Admitting Unavailable PARADISE, DR MOISES [employer] Unavailable ALBA OJEDA Consulting Unavailable Shannon Dotson Unavailable Helen Medina MD Primary Care Provider [phone] Helen Medina MD Unavailable Helen Medina MD [...] / zinc oxide 15 mg oral capsule (6 sources) Vitamin C Multiple Vitamins-Minerals (Eye Vitamins) [...] propionate 0.05 mg/actuat metered dose nasal spray (3 sources) Corticosteroid take 1 spray(s) nasal route [...] Test Name Value Interpretation Reference Range Facility MM TOMOSYNTHESIS SCREENING B Ion 03-19-[address] [address] Mammography Report Signed Patient: MEI STROUD MR#: [id number] : 1940 Acct:[id number] Age/Sex: 85 / F ADM Date: 03/19/25 Loc: MAMMO Attending Dr: HELEN MEDINA Ordering Physician: HELEN MEDINA Results: Date of Service: 03/19/25 Follow Up: Procedure(s): MM tomosynthesis screening BI Accession Number(s): [id number] cc: ADAM,HELEN Patient Name: MEI STROUD MR#: [id number] : 1940 Exam Date: 03/19/2025 Ordering Doctor: DR HELEN MEDINA M.D. RADIOLOGY REPORT PROCEDURE: MM TOMOSYNTHESIS SCREENING BI COMPARISON: MM TOMOSYNTHESIS SCREENING BI, 03/18/2024. MM TOMOSYNTHESIS SCREENING BI, 03/17/2023. MG MAMM SCREEN 3D NIC CAD, 03/16/2022. MG MAMM NIC DIAG W CAD DIG, 09/02/2013. INDICATIONS: Screening Calculator Name NCI Breast Cancer Risk Assessment Tool 5 Year Breast Cancer Risk Not Applicable. Lifetime Breast Cancer Risk Not Applicable. Personal Breast Cancer Yes, lt intraductal comeocarcinoma with necrosis Personal Ovarian Cancer No Treatments lumpectomy and radiation therapy Family Cancers None LOCATION: [facility] BREAST COMPOSITION: There are scattered areas of fibroglandular density. FINDINGS: DIAGNOSTIC CATEGORY 1--NEGATIVE. RIGHT BREAST: No significant suspicious finding. LEFT BREAST: No significant suspicious finding. Stable post treatment changes left breast. RECOMMENDATIONS: ROUTINE MAMMOGRAM AND CLINICAL EVALUATION IN 12 MONTHS. PLEASE NOTE: A NORMAL MAMMOGRAM DOES NOT EXCLUDE THE POSSIBILITY OF BREAST CANCER. A CLINICALLY SUSPICIOUS PALPABLE LUMP SHOULD BE BIOPSIED. Dictated by: Royce Hughes DO on 03/19/2025 at 15:35 Approved by: Royce Hughes DO on 03/19/2025 at 15:38 Dictated By: Royce Hughes M.D. Signed By: 03/19/25 1539 DD/ 1538 TD/TT: Embedded Systems Software Engineer: [facility] Radiology, Radiologist, MD - 03/19/2025 [place] [address] Mammography Report Signed Patient: MEI STROUD MR#: [id number] : 1940 Acct:[id number] Age/Sex: 85 / F ADM Date: 03/19/25 Loc: MAMMO Attending Dr: HELEN MEDINA Ordering Physician: HELEN MEDINA Results: Date of Service: 03/19/25 Follow Up: Procedure(s): MM tomosynthesis screening BI Accession Number(s): [id number] cc: REGINA MEDINAOMEGA Patient Name: MEI STROUD MR#: [id number] : 1940 Exam Date: 03/19/2025 Ordering Doctor: DR HELEN MEDINA M.D. RADIOLOGY REPORT PROCEDURE: MM TOMOSYNTHESIS SCREENING BI COMPARISON: MM TOMOSYNTHESIS SCREENING BI, 03/18/2024. MM TOMOSYNTHESIS SCREENING BI, 03/17/2023. MG MAMM SCREEN 3D NIC CAD, 03/16/2022. MG MAMM NIC DIAG W CAD DIG, 09/02/2013. INDICATIONS: Screening Calculator Name NCI Breast Cancer Risk Assessment Tool 5 Year Breast Cancer Risk Not Applicable. Lifetime Breast Cancer Risk Not Applicable. Personal Breast Cancer Yes, lt intraductal comeocarcinoma with necrosis Personal Ovarian Cancer No Treatments lumpectomy and radiation therapy Family Cancers None LOCATION: [facility] BREAST COMPOSITION: There are scattered areas of fibroglandular density. FINDINGS: DIAGNOSTIC CATEGORY 1--NEGATIVE. RIGHT BREAST: No significant suspicious finding. LEFT BREAST: No significant suspicious finding. Stable post treatment changes left breast. RECOMMENDATIONS: ROUTINE MAMMOGRAM AND CLINICAL EVALUATION IN 12 MONTHS. PLEASE NOTE: A NORMAL MAMMOGRAM DOES NOT EXCLUDE THE POSSIBILITY OF BREAST CANCER. A CLINICALLY SUSPICIOUS PALPABLE LUMP SHOULD BE BIOPSIED. Dictated by: Royce Hughes DO on 03/19/2025 at 15:35 Approved by: Royce Hughes DO on 03/19/2025 at 15:38 Dictated By: Royce Hughes M.D. Signed By: 03/19/25 1539 DD/ 1538 TD/TT: Embedded Systems Software Engineer: [facility] [employer] Radiology Study observation (narrative) [facility] [employer] MM TOMOSYNTHESIS SCREENING B IOrdered By: Radiologist Radiology on 03-19-2025 [employer] Work Phone: No Panel Informationon 11-18 [employer] CBC (INCLUDES DIFF/PLT)on Basophils (Bld) [#/Vol] 0.013 10*3/uL Normal 0-200 [facility] Comment on above: Performed By: #### 1 230, 6399 #### [facility] [address] [place], [place] [id number] Engineer Assistant: Caroline Garcia #### 7600 #### [facility] [address], [address] [place] [address] Engineer Assistant: Ricardo Garcia MD Basophils/100 WBC (Bld) 0.2 % Normal [facility] Comment on above: Performed By: #### 1 230, 6399 #### [facility] [address] [place], [place] [id number] Engineer Assistant: Caroline Garcia #### 7600 #### [facility] [place] [address] Engineer Assistant: Ricardo Garcia MD Eosinophils (Bld) [#/Vol] 0.04 10*3/uL Normal 15-500 [facility] Comment on above: Performed By: #### 1 230, 6399 #### [facility] [address] [place] [address] Engineer Assistant: Caroline Garcia #### 7600 #### [facility] [place] [address] Engineer Assistant: Ricardo Garcia MD Eosinophils/100 WBC (Bld) 0.6 % Normal [facility] Comment on above: Performed By: #### 1 230, 6399 #### [facility] [address] [place], [place] [id number] Engineer Assistant: Caroline Garcia #### 7600 #### [facility] [address], [address] [place] [address] Engineer Assistant: Ricardo Garcia MD Erythrocyte distribution width (RBC) [Ratio] 14.2 % Normal 11.0-15.0 [facility] Comment on above: Performed By: #### 1 230, 6399 #### [facility] [address] [place], [place] [id number] Engineer Assistant: Caroline Garcia #### 7600 #### [facility] [place] [address] [place] , [address] [place] [address] Engineer Assistant: Ricardo Garcia MD Hematocrit (Bld) [Volume fraction] 38.8 % Normal 35.0-45.0 [facility] Comment on above: Performed By: #### 1 0231, 6399 #### [facility] [address] [place] [address] Engineer Assistant: Caroline Garcia #### 7600 #### [facility] [place] [address] [place] , [address] [place] [address] Engineer Assistant: Ricardo Garcia MD Hemoglobin (Bld) [Mass/Vol] 12.6 g/dL Normal 11.7-15.5 [facility] Comment on above: Performed By: #### 1 0231, 6399 #### [facility] [address] [place] [address] Engineer Assistant: Caroline Garcia #### 7600 #### [facility] [place] [address] [place] , [address] [place] [address] Engineer Assistant: Ricardo Garcia MD Lymphocytes (Bld) [#/Vol] 0.878 10*3/uL Normal 850-3900 [facility] Comment on above: Performed By: #### 1 0231, 6399 #### [facility] [address] [place] [address] Engineer Assistant: Caroline Garcia #### 7600 #### [facility] [place] [address], [address] [place] [address] Engineer Assistant: Ricardo Garcia MD Lymphocytes/100 WBC (Bld) 13.1 % Normal [facility] Comment on above: Performed By: #### 1 0231, 6399 #### [facility] [address] [place] [address] Engineer Assistant: Caroline Garcia #### 7600 #### [facility] of [address], [address] [place] [address] Engineer Assistant: Ricardo Garcia MD MCH (RBC) [Entitic mass] 29.5 pg Normal 27.0-33.0 [facility] Comment on above: Performed By: #### 1 230, 6399 #### [facility] [address] Engineer Assistant: Caroline Garcia #### 7600 #### [facility] [address], [address] [place] [address] Engineer Assistant: Ricardo Garcia MD MCHC (RBC) [Mass/Vol] 32.5 g/dL Normal 32.0-36.0 [facility] Comment on above: Result Comment: For adults, a slight decrease in the calculated MCHC value (in the range of 30 to 32 g/dL) is most likely not clinically significant; however, it should be interpreted with caution in correlation with other red cell parameters and the patient's clinical condition. Performed By: #### 1 230, 6399 #### [facility] Engineer Assistant: Caroline Garcia #### 7600 #### [facility] [address], [address] [place] [address] Engineer Assistant: Ricardo Garcia MD MCV (RBC) [Entitic vol] 90.9 fL Normal 80.0-100.0 [facility] Comment on above: Performed By: #### 1 230, 6399 #### [facility] [address] [place], [place] [id number] Engineer Assistant: Caroline Garcia #### 7600 #### [facility] [address], [address] [place] [address] Engineer Assistant: Ricardo Garcia MD Monocytes (Bld) [#/Vol] 0.382 10*3/uL Normal 200-950 [facility] Comment on above: Performed By: #### 1 230, 6399 #### [facility] [address] [place], [place] [id number] Engineer Assistant: Caroline Garcia #### 7600 #### [facility] of [address], [address] [place] [address] Engineer Assistant: Ricardo Garcia MD Monocytes/100 WBC (Bld) 5.7 % Normal [facility] Comment on above: Performed By: #### 1 0231, 6399 #### [facility] [address] [place] [address] Engineer Assistant: Caroline Garcia #### 7600 #### [facility] [address], [address] [place] [address] Engineer Assistant: Ricardo Garcia MD Neutrophils (Bld) [#/Vol] 5.387 10*3/uL Normal 6047-4625 [facility] Comment on above: Performed By: #### 1 0231, 6399 #### [facility] [address] [place] [address] Engineer Assistant: Caroline Garcia #### 7600 #### [facility] [address], [address] [place] [address] Engineer Assistant: Ricardo Garcia MD Neutrophils/100 WBC (Bld) 80.4 % Normal [facility] Comment on above: Performed By: #### 1 0231, 6399 #### [facility] [address] [place], [place] [address] Engineer Assistant: Caroline Garcia #### 7600 #### [facility] of [address], [address] [place] [address] Engineer Assistant: Ricardo Garcia MD Platelet mean volume (Bld) [Entitic vol] 10.6 fL Normal 7.5-12.5 [facility] Comment on above: Performed By: #### 1 0231, 6399 #### [facility] [address] [place], [place] [id number] Engineer Assistant: Caroline Garcia #### 7600 #### [facility] of [address], [address] [place] [address] Engineer Assistant: Ricardo Garcia MD Platelets (Bld) [#/Vol] 240 10*3/uL Normal 140-400 [facility] Comment on above: Performed By: #### 1 0231, 6399 #### [facility] [address] [place] [address] Engineer Assistant: Caroline Garcia #### 7600 #### [facility] [place] [address] [place] , [address] [place] [address] Engineer Assistant: Ricardo Garcia MD RBC (Bld) [#/Vol] 4.27 10*6/uL Normal 3.80-5.10 [facility] Comment on above: Performed By: #### 1 0231, 6399 #### [facility] [address] [place] [address] Engineer Assistant: Caroline Garcia #### 7600 #### [facility] [place] [address] [place] , [address] [place] [address] Engineer Assistant: Ricardo Garcia MD WBC (Bld) [#/Vol] 6.7 10*3/uL Normal 3.8-10.8 [facility] Comment on above: Performed By: #### 1 0231, 6399 #### [facility] [address] [place] [address] Engineer Assistant: Caroline Garcia #### 7600 #### [facility] [place] [address] [place] , [address] [place] [address] Engineer Assistant: Ricardo Garcia MD [facility] METABOLIC [facility] 09-14-2024 Albumin [Mass/Vol] 3.6 g/dL Normal 3.6-5.1 [facility] Comment on above: Performed By: #### 1 0231, 6399 #### [facility] [address] [place] [address] Engineer Assistant: Caroline Garcia #### 7600 #### [facility] [place] [address] [place] , [address] [place] [address] Engineer Assistant: Ricardo Garcia MD Albumin/Globulin [Mass ratio] 1.5 {ratio} Normal 1.0-2.5 [facility] Comment on above: Performed By: #### 1 0231, 6399 #### [facility] [address] Engineer Assistant: Caroline Garcia #### 7600 #### [facility] [address], [address] [place] [address] Engineer Assistant: Ricardo Garcia MD ALP [Catalytic activity/Vol] 107 U/L Normal 37-153 [facility] Comment on above: Performed By: #### 1 0231, 6399 #### [facility] [address] Engineer Assistant: Caroline Garcia #### 7600 #### [facility] [address], [address] [place] [address] Engineer Assistant: Ricardo Garcia MD ALT [Catalytic activity/Vol] 12 U/L Normal 6-29 [facility] Comment on above: Performed By: #### 1 0231, 6399 #### [facility] [address] Engineer Assistant: Carolien Garcia #### 7600 #### [facility] [address], [address] [place] [address] Engineer Assistant: Ricardo Garcia MD AST [Catalytic activity/Vol] 16 U/L Normal 10-35 [facility] Comment on above: Performed By: #### 1 0231, 6399 #### [facility] [address] [place], [place] [id number] Engineer Assistant: Caroline Garcia #### 7600 #### [facility] [address], [address] [place] [address] Engineer Assistant: Ricardo Garcia MD Bilirubin [Mass/Vol] 0.4 mg/dL Normal 0.2-1.2 [facility] Comment on above: Performed By: #### 1 0231, 6399 #### [facility] [address] [place] [address] Engineer Assistant: Caroline Garcia #### 7600 #### [facility] [address], [address] [place] [address] Engineer Assistant: Ricardo Garcia MD BUN/CREATININE RATIO SEE NOTE: Normal 6-22 [facility] Comment on above: Result Comment: Not Reported: BUN and Creatinine are within reference range. Performed By: #### 1 230, 6399 #### [facility] [address] [place] [address] Engineer Assistant: Caroline Garcia #### 7600 #### [facility] [address], [address] [place] [address] Engineer Assistant: Ricardo Garcia MD Calcium [Mass/Vol] 8.7 mg/dL Normal 8.6-10.4 [facility] Comment on above: Performed By: #### 1 230, 6399 #### [facility] [address] [place] [address] Engineer Assistant: Caroline Garcia #### 7600 #### [facility] [address], [address] [place] [address] Engineer Assistant: Ricardo Garcia MD Chloride [Moles/Vol] 109 mmol/L Normal 98-110 [facility] Comment on above: Performed By: #### 1 230, 63 #### [facility] [address] [place] [address] Engineer Assistant: Caroline Garcia #### 7600 #### [facility] [address], [address] [place] [address] Engineer Assistant: Ricardo Garcia MD CO2 [Moles/Vol] 28 mmol/L Normal 20-32 [facility] Comment on above: Performed By: #### 1 230, 6399 #### [facility] [address] [place] [address] Engineer Assistant: Caroline Garcia #### 7600 #### [facility] [address], [address] [place], [place] [id number] Engineer Assistant: Ricardo Garcia MD Creatinine [Mass/Vol] 0.62 mg/dL Normal 0.60-0.95 [facility] Comment on above: Performed By: #### 1 230, 6399 #### [facility] [address] [place], [place] [id number] Engineer Assistant: Caroline Garcia #### 7600 #### [facility] [address], [address] [place], [place] [id number] Engineer Assistant: Ricardo Garcia MD GFR/1.73 sq M.predicted among non-blacks MDRD (S/P/Bld) [Vol rate/Area] 87 mL/min/{1.73_m2} Normal > OR = 60 [facility] Comment on above: Performed By: #### 1 230, 6399 #### [facility] [address] [place] [address] Engineer Assistant: Caroline Garcia #### 7600 #### [facility] [address], [address] [place], [place] [id number] Engineer Assistant: Ricardo Garcia MD Globulin (S) [Mass/Vol] 2.4 g/dL Normal 1.9-3.7 [facility] Comment on above: Performed By: #### 1 230, 6399 #### [facility] [address] [place] [address] Engineer Assistant: Caroline Garcia #### 7600 #### [facility] [address], [address] [place], [place] [id number] Engineer Assistant: Ricardo Garcia MD Glucose [Mass/Vol] 96 mg/dL Normal 65-99 [facility] Comment on above: Result Comment: Fasting reference interval Performed By: #### 1 023, 6399 #### [facility] [address] [place] [address] Engineer Assistant: Caroline Garcia #### 7600 #### [facility] [place] [address] [place] , [address] [place] [address] Engineer Assistant: Ricardo Garcia MD Potassium [Moles/Vol] 3.9 mmol/L Normal 3.5-5.3 [facility] Comment on above: Performed By: #### 1 0231, 6399 #### [facility] [address] [place] [address] Engineer Assistant: Caroline Garcia #### 7600 #### [facility] [address], [address] [place] [address] Engineer Assistant: Ricardo Garcia MD Protein [Mass/Vol] 6.0 g/dL Low 6.1-8.1 [facility] Comment on above: Performed By: #### 1 0231, 6399 #### [facility] [address] [place] [address] Engineer Assistant: Caroline Garcia #### 7600 #### [facility] [address], [address] [place] [address] Engineer Assistant: Ricardo Garcia MD Sodium [Moles/Vol] 143 mmol/L Normal 135-146 [facility] Comment on above: Performed By: #### 1 0231, 6399 #### [facility] [address] [place] [address] Engineer Assistant: Caroline Garcia #### 7600 #### [facility] [address], [address] [place] [address] Engineer Assistant: Ricardo Garcia MD Urea nitrogen [Mass/Vol] 16 mg/dL Normal 7-25 [facility] Comment on above: Performed By: #### 1 0231, 6399 #### [facility] [address] [place] [address] Engineer Assistant: Caroline Garcia #### 7600 #### [facility] [address], [address] [place] [address] Engineer Assistant: Ricardo Garcia MD LIPID PANEL, [facility] 12-2 Cholesterol [Mass/Vol] 276 mg/dL High <200 [facility] Comment on above: Order Comment: FASTI NG:YES FASTING: YES Performed By: #### 1 0231, 6399 #### [facility] [address] [place] [address] Engineer Assistant: Caroline Garcia #### 7600 #### [facility] [address], [address] [place] [address] Engineer Assistant: Ricardo Garcia MD Cholesterol in HDL [Mass/Vol] 82 mg/dL Normal > OR = 50 [facility] Comment on above: Order Comment: FASTI NG:YES FASTING: YES Performed By: #### 1 0231, 6399 #### [facility] [address] [place], [place] [id number] Engineer Assistant: Caroline Garcia #### 7600 #### [facility] [address], [address] [place] [address] Engineer Assistant: Ricardo Garcia MD Cholesterol in LDL [Mass/Vol] 171 mg/dL High [facility] Comment on above: Order Comment: FASTI NG:YES FASTING: YES Result Comment: Refe rence range: <100 Desirable range <100 mg/dL for primary prevention; <70 mg/dL for patients with CHD or diabetic patients with > or = 2 CHD risk factors. LDL-C is now calculated using the Hubert calculation, which is a validated novel method providing better accuracy than the Friedewald equation in the estimation of LDL-C. Cameron REYNOLDS et al. SOL. 2013;310(19): 3130-7963 (http://education.[employer]/faq/APC414) Performed By: #### 1 0231, 6323 #### [facility] [address] [place] [id number] Engineer Assistant: Caroline Garcia #### 7600 #### [facility] [address], [address] [place], [place] [id number] Engineer Assistant: Ricardo Garcia MD Cholesterol.total/Chol esterol in HDL [Mass ratio] 3.4 {ratio} Normal <5.0 [facility] Comment on above: Order Comment: FASTI NG:YES FASTING: YES Performed By: #### 1 0231, 6399 #### [facility] [address] [place] [address] Engineer Assistant: Caroline Garcia #### 7600 #### [facility] [address], [address] [place] [address] Engineer Assistant: Ricardo Garcia MD NON HDL CHOLESTEROL 194 mg/dL (calc) High <130 [facility] Comment on above: Order Comment: FASTI NG:YES FASTING: YES Result Comment: For patients with diabetes plus 1 major ASCVD risk factor, treating to a non-HDL-C goal of <100 mg/dL (LDL-C of <70 mg/dL) is considered a therapeutic option. Performed By: #### 1 023, 6399 #### [facility] [address] [place] [address] Engineer Assistant: Caroline Garcia #### 7600 #### [facility] [address], [address] [place] [address] Engineer Assistant: Ricardo Garcia MD Triglyceride [Mass/Vol] 108 mg/dL Normal <150 [facility] Comment on above: Order Comment: FASTI NG:YES FASTING: YES Performed By: #### 1 0231, 6399 #### [facility] [address] [place] [address] Engineer Assistant: Caroline Garcia #### 7600 #### [facility] [address], [address] [place] [address] Engineer Assistant: Ricardo Garcia MD VITAMIN D,25-OH,TOTAL,IAon 1 11-15-2023 VITAMIN D,25-OH,TOTAL,IA 31 ng/mL Normal 30-100 [facility] Comment on above: Result Comment: Ellyn min D Status 25-OH Vitamin D: Deficiency: <20 ng/mL Insufficiency: 20 - 29 ng/mL Optimal: > or = 30 ng/mL For 25-OH Vitamin D testing on patients on D2-supplementation and patients for whom quantitation of D2 and D3 fractions is required, the QuestAssureD(TM) 25-OH VIT D, (D2,D3), LC/MS/MS is recommended: order code 53733 (patients >2yrs). See Note 1 Note 1 For additional information, please refer to http://education.[employer]/faq/JCM221 (This link is being provided for informational/ educational purposes only.) Performed By: #### 1 0231, 6399 #### [facility] [address] [place] [address] Engineer Assistant: Caroline Garcia #### 7600 #### [facility] [address] [place] [address], [address] [place] [address] Engineer Assistant: Ricardo Garcia MD XR RIBS 2 VIEWS [...] signed and approved by the interpreting radiologist. Mikey Michael MD - 09/06/2024 Exam: XR RIBS 2 [...] signed and approved by the interpreting radiologist. [facility] Study observation (narrative) [facility] [employer] XR Ribs Views and Chest PAOr dered By: Mikey Nguyen on 09-06-2024 [employer] Work Phone: MG MAMM SCREEN 3D NIC CADon 03-16-2022 MG MAMM SCREEN 3D NIC CAD Patient: MEI STROUD Exam Date: 03/16/2022 : 1940 Gender:F Ordering : DR HELEN MEDINA M.D. Admission #: [id number] Family : Order #: [id number] CLICK HERE TO VIEW EXAM RADIOLOGY REPORT [...] radiation therapy Family Cancers None LOCATION: [facility] BREAST COMPOSITION: Scattered areas fibroglandular density. FINDINGS: [...] M.D. on 03/16/2022 at 11:42 Normal The [facility] RESPIRATORY PANEL PLUSon Adenovirus Not detected Normal NOT DETECTED [facility] Comment on above: Performed By: #### R SPLUS #### [facility] [address] [place] [address] Dr. Khurram Flynn. Parapertusis Not detected Normal NOT DETECTED The [facility] Comment on above: Performed By: #### R SPLUS #### [facility] [address] [place] [address] Dr. Khurram Flynn. Pertussis Not detected Normal NOT DETECTED [facility] Comment on above: Performed By: #### R SPLUS #### [facility] [address] [place] [address] Dr. Khurram Montiel Chlamydia Pneumoniae Not detected Normal NOT DETECTED The [facility] Comment on above: Performed By: #### R SPLUS #### [facility] [address] [place] [address] Dr. Khurram Montiel Coronavirus 229E Not detected Normal NOT DETECTED The [facility] Comment on above: Performed By: #### R SPLUS #### [facility] [address] [place] [address] Dr. Khurram Montiel Coronavirus HKU1 Not detected Normal NOT DETECTED The [facility] Comment on above: Performed By: #### R SPLUS #### [facility] [address] [place] [address] Dr. Khurram Montiel Coronavirus NL63 Not detected Normal NOT DETECTED The [facility] Comment on above: Performed By: #### R SPLUS #### [facility] [address] [place] [address] Dr. Khurram Montiel Coronavirus OC43 Not detected Normal NOT DETECTED The [facility] Comment on above: Performed By: #### R SPLUS #### [facility] [address] [address] [address] Khurram Montiel Influenza A H1 2009 Not detected Normal NOT DETECTED [facility] Comment on above: Performed By: #### R SPLUS #### [facility] [address] [place] [address] Dr. Khurram Montiel Influenza A H3 Not detected Normal NOT DETECTED The [facility] Comment on above: Performed By: #### R SPLUS #### [facility] [address] [place] [address] Dr. Khurram Montiel Influenza B Not detected Normal NOT DETECTED The [facility] Comment on above: Performed By: #### R SPLUS #### [facility] [address] [place] [address] Dr. Khurram Montiel Metapneumovirus Not detected Normal NOT DETECTED The [facility] Comment on above: Performed By: #### R SPLUS #### [facility] [address] [place] [address] Dr. Khurram Montiel Mycoplas. Pneumoniae Not detected Normal NOT DETECTED The [facility] Comment on above: Performed By: #### R SPLUS #### [facility] [address] [place] [address] Dr. Khurram Montiel Parainfluenza 1 Not detected Normal NOT DETECTED The [facility] Comment on above: Performed By: #### R SPLUS #### [facility] [address] [place] [address] Dr. Khurram Montiel Parainfluenza 2 Not detected Normal NOT DETECTED The [facility] Comment on above: Performed By: #### R SPLUS #### [facility] [address] [place] [address] Dr. Khurram Montiel Parainfluenza 3 Not detected Normal NOT DETECTED The [facility] Comment on above: Performed By: #### R SPLUS #### [facility] [address] [place] [address] Dr. Khurram Montiel Parainfluenza 4 Not detected Normal NOT DETECTED The [facility] Comment on above: Performed By: #### R SPLUS #### [facility] [address] [place] [address] Dr. Khurram Montiel Rhino/Enterovirus Not detected Normal NOT DETECTED The [facility] Comment on above: Performed By: #### R SPLUS #### [facility] [address] [place] [address] Dr. Khurram Montiel RP2 Header 1 RESPIRATORY PANEL: VIRUSES Normal The [facility] Comment on above: Performed By: #### R SPLUS #### [facility] [address] [place] [address] Dr. Khurram Montiel RP2 Header 2 RESPIRATORY PANEL: BACTERIA Normal [facility] Comment on above: Performed By: #### R SPLUS #### [facility] [address] [place] [address] Dr. Khurram Montiel RSV Not detected Normal NOT DETECTED [facility] Comment on above: Performed By: #### R SPLUS #### [facility] [address] [place] [address] Dr. Khurram Montiel SARS-CoV-2 (COVID-19) RNA OKSANA+probe Ql (Unsp spec) Not detected Normal NOT DETECTED The [facility] Comment on above: Performed By: #### R SPLUS #### [facility] [address] [place] [address] Dr. Khurram Montiel COVID Quick Testingon 2020 Result Negative [facility] Other XR DEXA BONE DENSITYon 06-15 XR [...] by: MOISES BAH Date: 2021-06-15 08:27 Normal [facility] Vital Signs Date Time Vital Sign Value Performing Clinician Facility 03-18-2025 08:36-0400 Diastolic blood pressure 70 mm[Hg] Tonia Hemmer PA Work Phone: [facility] 03-18-2025 08:36-0400 Systolic blood pressure 128 mm[Hg] Tonia Hemmer PA Work Phone: [facility] 03-18-2025 08:23-0400 Body height 166.4 cm Tonia Hemmer PA Work Phone: [facility] 03-18-2025 08:23-0400 Body mass index (BMI) [Ratio] 24.58 kg/m2 Tonia Hemmer PA Work Phone: [facility] 03-18-2025 08:23-0400 Body weight 68.04 kg Tonia Hemmer PA Work Phone: [facility] 03-18-2025 08:23-0400 Heart rate 60 /min Tonia Hemmer PA Work Phone: [facility] 03-18-2025 08:23-0400 SaO2% (BldA) [Mass fraction] 97 % Tonia Hemmer PA Work Phone: [facility] 01-06-2025 09:37-0400 Body height 166.4 cm Tonia Hemmer PA Work Phone: [facility] 01-06-2025 09:37-0400 Body mass index (BMI) [Ratio] 25.24 kg/m2 Tonia Hemmer PA Work Phone: [facility] 01-06-2025 09:37-0400 Body temperature 97.7 [degF] Tonia Hemmer PA Work Phone: [facility] 01-06-2025 09:37-0400 Body weight 69.85 kg Tonia Hemmer PA Work Phone: [facility] 01-06-2025 09:37-0400 Diastolic blood pressure 64 mm[Hg] Tonia Hemmer PA Work Phone: [facility] 01-06-2025 09:37-0400 Heart rate 64 /min Tonia Hemmer PA Work Phone: [facility] 01-06-2025 09:37-0400 Respiratory rate 16 /min Tonia Hemmer PA Work Phone: [facility] 01-06-2025 09:37-0400 SaO2% (BldA) [Mass fraction] 99 % Tonia Hemmer PA Work Phone: [facility] 01-06-2025 09:37-0400 Systolic blood pressure 122 mm[Hg] Tonia Hemmer PA Work Phone: [facility] 09-12-2024 13:07-0500 Body height 166.4 cm Tonia Hemmer PA Work Phone: [facility] 09-12-2024 13:07-0500 Body mass index (BMI) [Ratio] 25.07 kg/m2 Tonia Hemmer PA Work Phone: [facility] 09-12-2024 13:07-0500 Body weight 69.4 kg Tonia Hemmer PA Work Phone: [facility] 09-12-2024 13:07-0500 Diastolic blood pressure 72 mm[Hg] Tonia Hemmer PA Work Phone: [facility] 09-12-2024 13:07-0500 Heart rate 55 /min Tonia Hemmer PA Work Phone: [facility] 09-12-2024 13:07-0500 SaO2% (BldA) [Mass fraction] 98 % Tonia Hemmer PA Work Phone: [facility] 09-12-2024 13:07-0500 Systolic blood pressure 108 mm[Hg] Otnia Hemmer PA Work Phone: [facility] 09-09-2024 09:47-0500 Body mass index (BMI) [Ratio] 24.75 kg/m2 Tonia Hemmer PA Work Phone: [facility] 09-09-2024 09:47-0500 Body weight 68.49 kg Tonia Hemmer PA Work Phone: [facility] 09-09-2024 09:47-0500 Diastolic blood pressure 70 mm[Hg] Tonia Hemmer PA Work Phone: [facility] 09-09-2024 09:47-0500 Heart rate 55 /min Tonia Hemmer PA Work Phone: [facility] 09-09-2024 09:47-0500 Respiratory rate 17 /min Tonia Hemmer PA Work Phone: [facility] 09-09-2024 09:47-0500 SaO2% (BldA) [Mass fraction] 99 % Tonia Hemmer PA Work Phone: [facility] 09-09-2024 09:47-0500 Systolic blood pressure 100 mm[Hg] Tonia Hemmer PA Work Phone: [facility] 09-06-2024 09:03-0500 Body mass index (BMI) [Ratio] 25.4 kg/m2 Meche Rodriguez [employer]STRU[employer] Work Phone: [facility] 09-06-2024 09:03-0500 Body temperature 97.81 [degF] Meche Rodriguez [employer]STRU[employer] Work Phone: [facility] 09-06-2024 09:03-0500 Body weight 70.31 kg Meche Rodriguez [employer]STRUCTION [employer] Work Phone: [facility] 09-06-2024 09:03-0500 Diastolic blood pressure 68 mm[Hg] Meche Rodriguez [employer]STRUCTION [employer] Work Phone: [facility] 09-06-2024 09:03-0500 Heart rate 78 /min Meche Rodriguez [employer]STRUCTION [employer] Work Phone: [facility] 09-06-2024 09:03-0500 SaO2% (BldA) [Mass fraction] 98 % Meche Rodriguez [employer]STRUCTION [employer] Work Phone: [address]-2024 09:03-0500 Systolic blood pressure 114 mm[Hg] Meche Rodriguez [employer]STRUCTION [employer] Work Phone: [facility] 09-04-2024 13:38-0500 Body height 166.4 cm Katt Love [employer] Work Phone: [facility] 09-04-2024 13:38-0500 Body mass index (BMI) [Ratio] 24.97 kg/m2 Katt Love [employer] Work Phone: [facility] 09-04-2024 13:38-0500 Body weight 69.13 kg Katt Love [employer]STRUCTION [employer] Work Phone: [facility] 09-04-2024 13:38-0500 Diastolic blood pressure 77 mm[Hg] Katt Love [employer]STRUCTION [employer] Work Phone: [facility] 09-04-2024 13:38-0500 Heart rate 78 /min Katt Love [employer]STRUCTION [employer] Work Phone: [facility] 09-04-2024 13:38-0500 Respiratory rate 17 /min Katt Love [employer]STRUCTION [employer] Work Phone: [facility] 09-04-2024 13:38-0500 SaO2% (BldA) [Mass fraction] 97 % Katt Love [employer]STRUCTION [employer] Work Phone: [facility] 09-04-2024 13:38-0500 Systolic blood pressure 132 mm[Hg] Katt Love [employer]STRUCTION [employer] Work Phone: [facility] 08-06-2024 09:33-0500 Body mass index (BMI) [Ratio] 25.01 kg/m2 Alba Ojeda [employer] Work Phone: [facility] 08-06-2024 09:33-0500 Body weight 69.22 kg Alba Ojeda [employer] Work Phone: [facility] 08-06-2024 09:33-0500 Diastolic blood pressure 75 mm[Hg] Alba Ojeda [employer] Work Phone: [facility] 08-06-2024 09:33-0500 Heart rate 67 /min Alba Ojeda [employer]STRUCTION [employer] Work Phone: [facility] 08-06-2024 09:33-0500 Respiratory rate 16 /min Alba Ojeda [employer] Work Phone: [facility] 08-06-2024 09:33-0500 SaO2% (BldA) [Mass fraction] 97 % Alba Ojeda [employer] Work Phone: [facility] 08-06-2024 09:33-0500 Systolic blood pressure 110 mm[Hg] Alba Ojeda [employer] Work Phone: [facility] 11-07-2023 11:35-0500 Body mass index (BMI) [Ratio] 24.78 kg/m2 Tonia Hemmer PA Work Phone: [facility] 11-07-2023 11:35-0500 Body temperature 97.9 [degF] Tonia Hemmer PA Work Phone: [facility] 11-07-2023 11:35-0500 Body weight 68.58 kg Tonia Hemmer PA Work Phone: [facility] 11-07-2023 11:35-0500 Diastolic blood pressure 72 mm[Hg] Tonia Hemmer PA Work Phone: [facility] 11-07-2023 11:35-0500 Heart rate 59 /min Tonia Hemmer PA Work Phone: [facility] 11-07-2023 11:35-0500 Respiratory rate 16 /min Tonia Hemmer PA Work Phone: [facility] 11-07-2023 11:35-0500 SaO2% (BldA) [Mass fraction] 99 % Tonia Hemmer PA Work Phone: [facility] 11-07-2023 11:35-0500 Systolic blood pressure 112 mm[Hg] Tonia Hemmer PA Work Phone: [facility] 07-15-2021 14:00-0400 Body height 167.64 cm Shannon Mauri Other [facility] Other 07-15-2021 14:00-0400 Body mass index (BMI) [Ratio] 24.21 kg/m2 Shannon Dotson Other [facility] Other 07-15-2021 14:00-0400 Body temperature 97.5 [degF] Shannon Dotson Other [facility] Other 07-15-2021 14:00-0400 Body weight 68.04 kg Shannon Dotson Other [facility] Other 07-15-2021 14:00-0400 Respiratory rate 18 /min Shannon Dotson Other [facility] Other 07-15-2021 14:00-0400 SaO2% (BldA) [Mass fraction] 97 % Shannon Dotson Other [facility] Other Encounters Encounter Date Encounter Type Care Provider Facility Start: 03-19-2025 End: 03-19-2025 Clinisync Result Encounter Helen Medina MD Work Phone: [facility] Unsolicited Start: 03-19-2025 End: 03-19-2025 Clinisync Result Encounter Helen Medina MD Work Phone: [facility] Unsolicited Start: 03-18-2025 End: 03-18-2025 Office outpatient visit [...] End: 01-06-2025 Office outpatient visit 15 minutes oTnia THOMSON Work Phone: [facility] Comment on above: Acute non-recurrent ethmoidal sinusitis (Primary Dx) Start: 01-06-2025 End: 01-06-2025 ambulatory TONIA FLORES Not Available Start: 11-18-2024 End: 11-18-2024 Bamboo flowsheet Toyin Jones Felter ORNAMENTER-VASCULAR ULTRASOUND TECHNICIAN Work Phone: [facility] Start: 11-18-2024 End: 11-18-2024 Bamboo flowsheet Toyin A Felter ORNAMENTER-VASCULAR ULTRASOUND TECHNICIAN Work Phone: [facility] Start: 11-18-2024 End: 11-18-2024 Office outpatient visit 15 minutes Toyin Jones Felter ORNAMENTER-VASCULAR ULTRASOUND TECHNICIAN Work Phone: [facility] Comment on above: Seborrheic keratosis ; Actinic keratosis; Melanocytic nevus of trunk; Melanocytic nevus of left upper extremity; Melanocytic nevus of right upper extremity; Neurofibroma; Sebaceous hyperplasia of face; Onycholysis due to Pseudomonas infection Start: 11-18-2024 End: 11-18-2024 ambulatory TOYIN BECKER Not Available Start: 09-16-2024 End: 09-16-2024 Telephone [...] Dx); Hypersomnia; Obstructive sleep apnea syndrome; Seizure ([facility]/HCC); Benign essential hypertension ([facility]/HCC); Diverticulosis; Cervical spondylosis; Age-related osteoporosis without current pathological fracture ([facility]); Acute seasonal allergic rhinitis due to pollen; Allergic conjunctivitis of both eyes; Hypercholesterolemia ([facility]/HCC); Macular degeneration of both eyes, unspecified type; ACP (advance care planning) Start: 09-12-2024 End: 09-12-2024 ambulatory TONIA Ness SANDRA Not Available Start: 09-09-2024 End: 09-09-2024 Bamboo flowsheet Tonia Flores PA Work Phone: [facility] Start: 09-09-2024 End: 09-09-2024 Bamboo flowsheet Tonia Flores PA Work Phone: [facility] Start: 09-09-2024 End: 09-09-2024 Office outpatient visit 15 minutes Tonia Flores PA Work Phone: [facility] Comment on above: Rib contusion, left, subsequent encounter (Primary Dx) Start: 09-09-2024 End: 09-09-2024 ambulatory TONIA FLORES Not Available Start: 09-06-2024 End: 09-06-2024 Office outpatient visit 25 minutes Meche Rodriguez [employer] Work Phone: [facility] Comment on above: Fall, initial encoun ter (Primary Dx); Rib pain on left side Start: 09-06-2024 End: 09-06-2024 ambulatory MECHE RODRIGUEZ Not Available Start: 09-04-2024 End: 09-04-2024 Bamboo flowsheet Katt Love [employer]STRUCTION FOREMAN Work Phone: [facility] Start: 09-04-2024 End: 09-04-2024 Bamboo flowsheet Katt Love [employer]STRUCTION FOREMAN Work Phone: [facility] Start: 09-04-2024 End: 09-04-2024 Office outpatient visit 25 minutes Katt Love [employer]STRU[employer] Work Phone: [facility] Comment on above: Acute frontal sinusi tis, recurrence not specified (Primary Dx) Start: 09-04-2024 End: 09-04-2024 ambulatory KATT LOVE Not Available Start: 08-06-2024 End: 08-06-2024 Bamboo flowsheet Alba Ojeda [employer]STRUCTION [employer]EMAN Work Phone: [facility] Start: 08-06-2024 End: 08-06-2024 Bamboo flowsheet Alba Ojeda [employer]STRUCTION [employer] Work Phone: [facility] Start: 08-06-2024 End: 08-06-2024 Patient encounter procedure Alba Ojeda [employer]STRU[employer] Work Phone: [facility] Comment on above: Acute non-recurrent pansinusitis (Primary Dx); Unspecified convulsions (CMS/HCC) Start: 08-06-2024 End: 08-06-2024 ambulatory ALBA OJEDA Not Available Start: 06-17-2024 End: 06-17-2024 Bamboo flowsheet Toyin A Felter ORNAMENTER-VASCULAR ULTRASOUND TECHNICIAN Work Phone: [facility] Start: 06-17-2024 End: 06-17-2024 Bamboo flowsheet Toyin A Felter ORNAMENTER-VASCULAR ULTRASOUND TECHNICIAN Work Phone: [facility] Start: 06-17-2024 End: 06-17-2024 Office outpatient visit 10 minutes Toyin A Felter ORNAMENTER-VASCULAR ULTRASOUND TECHNICIAN Work Phone: [facility] Comment on above: Onycholysis due to P seudomonas infection Start: 06-17-2024 End: 06-17-2024 ambulatory TOYIN A FELTER Not Available Start: 06-03-2024 End: 06-03-2024 Bamboo flowsheet Toyin A Felter ORNAMENTER-VASCULAR ULTRASOUND TECHNICIAN Work Phone: [facility] Start: 06-03-2024 End: 06-03-2024 Bamboo flowsheet Toyin A Felter ORNAMENTER-VASCULAR ULTRASOUND TECHNICIAN Work Phone: [facility] Start: 06-03-2024 End: 06-03-2024 Office outpatient visit 15 minutes Toyin A Felter ORNAMENTER-VASCULAR ULTRASOUND TECHNICIAN Work Phone: [facility] Comment on above: Onycholysis due to P seudomonas infection Start: 06-03-2024 End: 06-03-2024 ambulatory TOYIN A FELTER Not Available Start: 05-14-2024 End: 05-14-2024 Bamboo flowsheet Toyin A Felter ORNAMENTER-VASCULAR ULTRASOUND TECHNICIAN Work Phone: [facility] Start: 05-14-2024 End: 05-14-2024 Bamboo flowsheet Toyin A Felter ORNAMENTER-VASCULAR ULTRASOUND TECHNICIAN Work Phone: [facility] Start: 05-14-2024 End: 05-14-2024 Telephone encounter Toyin A Felter ORNAMENTER-VASCULAR ULTRASOUND TECHNICIAN Work Phone: [facility] Start: 05-14-2024 End: 05-14-2024 Office outpatient visit 25 minutes Toyin A Felter ORNAMENTER-VASCULAR ULTRASOUND TECHNICIAN Work Phone: [facility] Comment on above: Onycholysis due to P seudomonas infection (Primary Dx) Start: 05-14-2024 End: 05-14-2024 ambulatory TOYIN A FELTER Not Available Start: 11-07-2023 Bamboo flowsheet Tonia [...] Start: 03-16-2022 End: 03-17-[address] HELEN MEIDNA Facility:[facility] Start: 03-01-2022 End: 03-01-[address] HELEN MEDINA Facility:[facility] Start: 07-15-2021 End: 07-15-2021 ambulatory Shannon Dotson Other [employer] Other Start: 07-15-2021 Office outpatient vi sit 15 minutes Shannon Dotson [facility] [place] Start: 06-18-2021 Encounter for genera l adult medical examination without abnormal findings ALBA OJEDA [facility] Start: 06-15-2021 End: 06-16-[address] HELEN MEDINA Facility:[facility] Start: 06-15-2021 End: 06-16-2021 Encounter for general adult medical examination without abnormal findings DR HELEN MEDINA Facility:[facility] Procedures Date Procedure Procedure Detail Performing Clinician Start: 03-19-2025 MM TOMOSYNTHESIS SCR EENING BI Helen Medina MD Work Phone: Start: 11-18-2024 CRYOTHERAPY SKIN LESION Toyin Becklora ORNAMENTER-VASCULAR ULTRASOUND TECHNICIAN Work Phone: Plan of Treatment Date Care Activity Detail Author Start: 11-18-2025 End: 11-18-2025 Patient encounter procedure 11/18/2025 9:20 AM EST Office Visit [facility] [address] [place] [id number] Toyin Zuleta, ORNAMENTER-VASCULAR ULTRASOUND TECHNICIAN [address] [place] [address] [facility] Start: 09-12-2025 Medicare Annual Well ness (AWV) Medicare Annual Wellness (AWV) [facility] Start: 09-08-2025 End: 09-08-2025 Patient encounter procedure 09/08/2025 8:00 AM EST Office Visit [facility] [address] [place] [phone] Tonia Flores PA [address] [place] [address] [facility] Start: 01-06-2025 End: 01-06-2025 Patient encounter procedure 01/06/2025 9:30 AM EDT Office Visit [facility] [address] [place] [address] Tonia Flores PA [address] [place] [address] Arrived [facility] Comment on above: Arrived Start: 11-18-2024 End: 11-18-2024 Patient encounter procedure [facility] Comment on above: Arrived Start: 09-12-2024 End: 09-12-2024 Patient encounter procedure [facility] Comment on above: Arrived Start: 09-09-2024 End: 09-09-2024 Patient encounter procedure 09/09/2024 10:00 AM EST Office Visit [facility] [address] [place] [address] Tonia Flores, PA [address] [place] [address] Arrived [facility] Comment on above: Arrived Start: 09-04-2024 End: 09-04-2024 Patient encounter procedure 09/04/2024 2:00 PM EST Office Visit [facility] [address] [place] [address] Katt Love, CONSTRUCTION FOREMAN [address] [place] [address] Arrived [facility] Comment on above: Arrived Start: 06-17-2024 End: 06-17-2024 Patient encounter procedure [facility] Comment on above: Arrived Start: 06-06-2024 Medicare Annual Well ness (AWV) Medicare Annual Wellness (AWV) [facility] Start: 06-03-2024 End: 06-03-2024 Patient encounter procedure 06/03/2024 9:20 AM EDT Office Visit [facility] [address] [place] [phone] Toyin Zuleta, ORNAMENTER-VASCULAR ULTRASOUND TECHNICIAN [address] [place] [address] Arrived [facility] Comment on above: Arrived Start: 05-26-2024 Influenza vaccination Influenza Vacc ine (#1) [facility] Start: 05-14-2024 End: 05-14-2024 Patient encounter procedure 05/14/2024 10:05 AM EDT Office Visit [facility] [address] [place] [phone] EbonyToyin paulino, ORNAMENTER-VASCULAR ULTRASOUND TECHNICIAN [address] [place] [address] Arrived [facility] Comment on above: Arrived Start: 12-05-2023 End: 12-05-2023 Patient encounter procedure 12/05/2023 9:00 AM EDT Office Visit [facility] [address] [place] [address] Tonia Flores PA [address] [place] [address] [facility] Start: 11-14-2023 End: 11-14-2023 Patient encounter procedure 11/14/2023 9:40 AM EST Office Visit [facility] [address] [place] [phone] MerlynToyin Robert ORNAMENTER-VASCULAR ULTRASOUND TECHNICIAN [address] [place] [address] [facility] Start: 11-07-2023 End: 11-07-2023 Patient encounter procedure 11/07/2023 11:30 AM EST Office Visit [facility] [address] [facility] [address] [place] [address] Tonia Flores PA [address] [place] [address] Arrived [facility] Comment on above: Arrived Immunizations Immunization Date Immunization Notes Care Provider Fa [facility] 06-02-2024 influenza, high dose seasonal, preservative-free Tonia THOMSON Work Phone: [facility] 06-02-2024 influenza virus vacc ine, unspecified formulation Toyin Zuleta ORNAMENTER-VASCULAR ULTRASOUND TECHNICIAN Work Phone: [facility] 09-08-2023 RSV, recombinant, protein subunit RSVpreF, adjuvant reconstitu, 120mcg/0.5mL, PF (Arexvy) Tonia Hemmer PA Work Phone: [facility] 06-13-2023 Pfizer Purple Cap SARS-CoV-2 Vaccination Tonia Hemmer PA Work Phone: [facility] 06-06-2023 tetanus toxoid, redu matthew diphtheria toxoid, and acellular pertussis vaccine, adsorbed Tonia Hemmer PA Work Phone: [facility] Work Phone: 05-30-2023 Influenza, Seasonal, Quadrivalent, Adjuvanted Tonia Hemmer PA Work Phone: [facility] 05-30-2023 influenza virus vacc ine, unspecified formulation Toyin Feltlora ORNAMENTER-VASCULAR ULTRASOUND TECHNICIAN Work Phone: [facility] 06-03-2022 Moderna Bivalent Trammell ster Vaccination Tonia Hemmer PA Work Phone: [facility] 05-21-2022 Influenza, High-dose Seasonal, Quadrivalent, Preservative Free Tonia Hemmer PA Work Phone: [facility] 05-18-2021 Influenza, High-dose Seasonal, Quadrivalent, Preservative Free Tonia Hemmer PA Work Phone: [facility] 09-09-2018 zoster vaccine recombinant Tonia Hemmer PA Work Phone: [facility] 06-04-2018 influenza, high dose seasonal, preservative-free Tonia Hemmer PA Work Phone: [facility] 04-20-2018 zoster vaccine recombinant Tonia Hemmer PA Work Phone: [facility] 04-10-2018 pneumococcal polysaccharide vaccine, 23 valent Tonia Hemmer PA Work Phone: [facility] 05-23-2017 influenza, high dose seasonal, preservative-free Tonia Hemmer PA Work Phone: [facility] 06-29-2016 influenza, injectabl e, quadrivalent, contains preservative Tonia Hemmer PA Work Phone: [facility] 09-08-2014 pneumococcal conjuga te vaccine, 13 valent Tonia Hemmer PA Work Phone: [facility] 08-01-2013 influenza, high dose seasonal, preservative-free Tonia THOMSON Work Phone: [facility] 09-08-2012 zoster vaccine, live Tonia THOMSON Work Phone: [facility] 03-30-2011 zoster vaccine, live Tonia Serene isaiah THOMSON Work Phone: [facility] Healthcare Payers Date Payer Category Payer Private Health Insurance [employer] [id number] 2021 Unknown [employer] [id number] 2021-Present [address] [place] [address] [id number] 2006 Medicare [id number] 1959 Medicare [id number] 1959 Unknown [id number] 1938 Unknown [id number] [id number]. 593 1938 Unknown [id number] 2.16.840.1.788763.3.579.2. 593 1938 Unknown [id number] 2..840.1.702263.3.579.2. 593 1938 Unknown [id number] 2.16.840.1.741950.3.579.2. 9 1938 Unknown [id number] 2.16.840.1.094119.3.579.2. 1258 1938 Unknown [id number] 2.16.840.1.937820.3.579.2. 1258 1938 Unknown [id number] 2.16.840.1.477288.3.579.2. 1258 1938 Unknown [id number] 2.16.840.1.913977.3.579.2. 1258 1938 Unknown [id number] 2.16.840.1.108429.3.579.2. 1258 1938 Unknown [id number] 2.16.840.1.047127.3.579.2. 1258 1938 Unknown [id number] 2.16.840.1.471322.3.579.2. 1258 1938 Unknown [id number] 2.16.840.1.359605.3.579.2. 1258 1938 Unknown [id number] 2.16.840.1.964254.3.579.2. 1258 1938 Unknown [id number] 2.16.840.1.333675.3.579.2. 1258 1938 Unknown [id number] 2.16.840.1.552878.3.579.2. 1259 Social History Date Type Detail Facility Start: 08-24-2023 End: 03-18-2025 Sex Assigned At [facility] [employer] Other Start: 02-16-2023 Tobacco smoking status IDIS Never smoked tobacco [facility] Healthcare Start: 02-16-2023 Tobacco use and exposure Smokeless tobacco non-user [facility] Healthcare Start: 08-24-2023 End: 03-18-2025 Alcohol intake Lifetime non-drinker (finding) [facility] Healthcare Start: 08-24-2023 End: 03-18-2025 History of Social function [facility] Start: 1940 Sex Assigned At Not on file N [facility] Healthcare Functional Status Date Assessment Result Facility 03-18-2025 Patient Health Quest ionnaire 2 item (PHQ-2) [Reported] [facility] 01-06-2025 Patient Health Quest ionnaire 2 item (PHQ-2) [Reported] [facility] Clinical Notes 07-15-2021 to 03-18-2025 ALIX Asher - 03/18/2025 8:30 AM ALIX Bourgeois - 01/06/2025 9:30 AM EDTTeleSANJAY Daniel - 09/16/2024 1:26 PM ALIX Gong - [...] Medicare Wellness Visit. documented in this encounter [facility] 01-06-2025 History of Presen t illness Narrative [...] 03/08/2025) for Hypertension. documented in this encounter [facility] 09-16-2024 Telephone encount er Note Patient notified [facility] 09-16-2024 Miscellaneous Notes Formattin g of this [...] and simple sugars. documented in this encounter [facility] 09-16-2024 Telephone encount er Note Please let pt know that her recent labs showed her LDL (bad cholesterol) was elevated at 171. Similar to previous of 175. Her protein was mildly low. Otherwise labs looked good. Would just recommend she increase her protein intake in her diet. Limit fried foods, fast foods, fatty foods, and simple sugars. [facility] 09-12-2024 History of Presen t illness Narrative [...] by direct observation Three Word Registration: Banana, Portis, Chair Clock Drawing: Normal Clock - 2 Three Word Recall: All 3 words correct - 3 Total Score (0-5 Points): 5 Pain Assessment Pain Score: 0 - No pain Advance Care Planning Do you have a living will?: Yes Do you have a medical power of prosecuting attorney?: Yes Current Outpatient Medications on File [...] are suggested at this time. 4. Seizure ([facility]) No recent seizures. Not currently on any medication for seizures. Will continue to monitor. 5. Benign essential hypertension (CMS/HCC) Patient's blood pressure is currently well controlled. [...] 8. Age-related osteoporosis without current pathological fracture (CMS/HCC) This is a chronic medical condition [...] unspecified type The patient is seeing a director medical for this condition, treatment is deferred to that specialist. Encouraged routine follow up appointments. 13. ACP Patient willing to discuss ACP. Pt has Living Will and DPOA in place. Follow up in about 6 months (around 03/13/2025) for Hypertension. Tonia Flores MSYADIRA, PAJamieC documented in this encounter [facility] 09-09-2024 History of Presen t illness Narrative [...] Medicare Wellness Visit. documented in this encounter [facility] 09-06-2024 History of Presen t illness Narrative [...] See telephone encounter. documented in this encounter [facility] 09-04-2024 History of Presen t illness Narrative [...] follow-ups on file. documented in this encounter [facility] 09-04-2024 Instructions Katt Love NP - 09/04/2024 2:00 PM EST Cefdinir started today. documented in this encounter [facility] 08-06-2024 History of Presen t illness Narrative [...] follow-ups on file. documented in this encounter [facility] 08-06-2024 Miscellaneous Notes Addended by: BEE GONZALES on: 08/06/2024 10:51 AM Modules accepted: Orders, Level of Service documented in this encounter [facility] 08-06-2024 Note Addended by: BEE GONZALES on: 08/06/2024 10:51 AM Modules accepted: Orders, Level of Service [facility] 08-06-2024 Note Addended by: BEE GONZALES on: 08/06/2024 10:51 AM Modules accepted: Orders, Level of Service [facility] 06-17-2024 History of Presen t illness Narrative [...] Visit: as scheduled documented in this encounter [facility] 06-03-2024 History of Presen t illness Narrative Images from the original note were not included. Follow up Diagnosis: Onycholysis due to pseudomonas infection Location: Left 4th finger nail plate Last visit: 05/14/2024 Symptoms: denies pain and drainage; looks about the same Status: worse since wearing nail italian over the weekend Current treatment: Vinegar soaks [...] Visit: 2 weeks documented in this encounter [facility] 05-14-2024 Telephone encount er Note Patient seen today in office. Cipro sent in to take BID x 10 days. Please move follow up from one month to 2 weeks. Thanks! [facility] 05-14-2024 Miscellaneous Notes Formattin g of this note might be different from the original. Patient seen today in office. Cipro sent in to take BID x 10 days. Please move follow up from one month to 2 weeks. Thanks! documented in this encounter [facility] 05-14-2024 History of Presen t illness Narrative Images from the original note were not included. Follow up Diagnosis: Onycholysis due to pseudomonas infection Location: Left 4th finger nail plate Last visit: 3 months ago Symptoms: denies pain and drainage; seems to get better if pt doesn't wear nail italian Status: worse since wearing nail italian over the weekend Current treatment: Vinegar soaks [...] Visit: 1 month documented in this encounter [facility] 11-18-2023 History of Presen t illness Narrative [...] limited to risks of scarring, darker or water pollution control inspector pigmentary changes, recurrence, incomplete removal and infection. [...] Visit: 1 year documented in this encounter [facility] 11-18-2023 History of Presen t illness Narrative [...] limited to risks of scarring, darker or water pollution control inspector pigmentary changes, recurrence, incomplete removal and infection. [...] Visit: 1 year documented in this encounter [facility] 11-07-2023 History of Presen t illness Narrative [...] History: Diagnosis Date Allergic Breast cancer (CMS/HCC) 2006 Cervical strain [...] Visit in May. documented in this encounter [facility] 07-15-2021 Evaluation note Encounter Date Diagnosis Assessment [...] Patient care instructions given in writting by [facility] Care At Home document. [facility] Other Evaluation note* Diagnosis Acute recurrent frontal sinusitis- Primary documented in this encounter [facility] HealthcareEvaluation note* Diagnosis Hypercholesterolemia (CMS/HCC)- Primary Pure hypercholesterolemia Acute non-recurrent pansinusitis- Primary Unspecified convulsions (CMS/HCC) documented in this encounter [facility] HealthcareEvaluation note* Diagnosis Hypercholesterolemia (CMS/HCC)- Primary Pure hypercholesterolemia Rib contusion, left, subsequent encounter- Primary documented in this encounter [facility]* Diagnosis Hypercholesterolemia ([facility]/H[facility])- Primary Pure hypercholesterolemia Fall, initial encounter- Primary Rib pain on left side Fall, initial encounter Rib pain on left side documented in this encounter [facility]* Diagnosis Onycholysis due to Pseudomonas infection- Primary documented in this encounter [facility]* Diagnosis Onycholysis due to Pseudomonas infection documented in this encounter [facility]* Diagnosis Onycholysis due to Pseudomonas infection documented in this encounter [facility]* Diagnosis Hypercholesterolemia ([facility])- Primary Pure hypercholesterolemia Medicare annual wellness visit, subsequent- Primary Hypersomnia Hypersomnia, unspecified Obstructive sleep apnea syndrome Obstructive sleep apnea (adult) (pediatric) Seizure ([facility]) Other convulsions Benign essential hypertension ([facility]) Essential hypertension, benign Diverticulosis Diverticulosis of colon (without mention of hemorrhage) Cervical spondylosis Cervical spondylosis without myelopathy Age-related osteoporosis without current pathological fracture ([facility]) Acute seasonal allergic rhinitis due to pollen Allergic conjunctivitis of both eyes Other chronic allergic conjunctivitis Hypercholesterolemia ([facility]) Pure hypercholesterolemia Macular degeneration of both eyes, unspecified type ACP (advance care planning) Other specified counseling documented in this encounter [facility]* Diagnosis Hypercholesterolemia ([facility])- Primary Pure hypercholesterolemia Acute frontal sinusitis, recurrence not specified- Primary documented in this encounter [facility]* Diagnosis Hypercholesterolemia ([facility])- Primary Pure hypercholesterolemia Seborrheic keratosis Actinic keratosis Melanocytic nevus of trunk Benign neoplasm of skin of trunk, except scrotum Melanocytic nevus of left upper extremity Melanocytic nevus of right upper extremity Neurofibroma Other benign neoplasm of connective and other soft tissue of unspecified site Sebaceous hyperplasia of face Onycholysis due to Pseudomonas infection documented in this encounter [facility]* Diagnosis Hypercholesterolemia ([facility])- Primary Pure hypercholesterolemia Acute non-recurrent ethmoidal sinusitis- [...] cuff Hospitalization History See past surgical hx [facility] Other Summary Purpose Family History No Family History Records FoundNo Family History Records FoundNo Family History Records Found Advance Directives No Advanced Directives Records FoundNo Advanced Directives Records FoundNo Advanced Directives Records Found Additional Source Comments INFORMATION SOURCE (unrecogn ized section and content) DATE CREATED AUTHOR 03/19/2022 [facility] DATE CREATED AUTHOR AUTHOR'S ORGANIZ ATION 09/17/2024 [facility] DATE CREATED AUTHOR AUTHOR'S ORGANIZ ATION 03/19/2025 [facility] dical Specialists EPIC REASON FOR VISIT (unrecogniz ed section and content) Reason Comments Follow-up Reason Comments Medicare Annual Wellness Visit Subsequen t Reason Comments Hypertension Care Teams (unrecognized sec tion and content) Washing Machine Mechanic Relationship Specialty Start Date End Date Helen Medina MD [address] [facility] [address] [place] [address] PCP - General Family Medicine 02/16/23 Helen Medina MD [address] [facility] [address] [place] [address] PCP - ACO Reach 02/16/23 Washing Machine Mechanic Relationship Specialty Start Date End Date Helen Medina MD [address] [facility] [address] [place] [address] PCP - General Family Medicine 02/16/23 Helen Medina MD [address] [facility] [address] [place] [address] PCP - ACO Reach 02/16/23 Washing Machine Mechanic Relationship Specialty Start Date End Date Helen Medina MD [address] [facility] [address] [place] [address] PCP - General Family Medicine 02/16/23 Helen Medina MD [address] [facility] [address] [place] [address] PCP - ACO Reach 01/24/24 Washing Machine Mechanic Relationship Specialty Start Date End Date Helen Medina MD [address] [facility] [address] [place] [address] PCP - General Family Medicine 02/16/23 Helen Medina MD [address] [facility] [address] [place] [address] PCP - ACO Reach 01/24/24 Washing Machine Mechanic Relationship Specialty Start Date End Date Helen Medina MD [address] [facility] [address] [place] [address] PCP - General Family Medicine 02/16/23 Helen Medina MD [address] [facility] [address] [place] [address] PCP - ACO Reach 01/24/24 Washing Machine Mechanic Relationship Specialty Start Date End Date Helen Medina MD [address] [facility] [address] [place] [address] PCP - General Family Medicine 02/16/23 Helen Medina MD [address] [facility] [address] [place] [address] PCP - ACO Reach 01/24/24 Washing Machine Mechanic Relationship Specialty Start Date End Date Helen Medina MD [address] [facility] [address] [place] [address] PCP - General Family Medicine 02/16/23 Helen Medina MD [address] [facility] [address] [place] [address] PCP - ACO Reach 01/24/24 Washing Machine Mechanic Relationship Specialty Start Date End Date Helen Medina MD [address] [facility] [address] [place] [address] PCP - General Family Medicine 02/16/23 Helen Medina MD [address] [facility] [address] [place] [address] PCP - ACO Reach 01/24/24 Washing Machine Mechanic Relationship Specialty Start Date End Date Helen Medina MD [address] [facility] [address] [place] [address] PCP - General Family Medicine 02/16/23 Helen Medina MD [address] [facility] [address] [place] [address] PCP - ACO Reach 01/24/24 Washing Machine Mechanic Relationship Specialty Start Date End Date Helen Medina MD [address] [facility] [address] [place] [address] PCP - General Family Medicine 02/16/23 Helen Medina MD [address] [facility] [address] [place] [address] PCP - ACO Reach 01/24/24 Washing Machine Mechanic Relationship Specialty Start Date End Date Helen Medina MD [address] [facility] [address] [place] [address] PCP - General Family Medicine 02/16/23 Helen Medina MD [address] [facility] [address] [place] [address] PCP - ACO Reach 01/24/24 Washing Machine Mechanic Relationship Specialty Start Date End Date Helen Medina MD [address] [facility] [address] [place] [address] PCP - General Family Medicine 02/16/23 Helen Medina MD [address] [facility] [address] [place] [address] PCP - ACO Reach 01/24/24 Washing Machine Mechanic Relationship Specialty Start Date End Date Helen Medina MD [address] [facility] [address] [place] [address] PCP - General Family Medicine 02/16/23 Helen Medina MD [address] [facility] [address] [place] [address] PCP - ACO Reach 01/24/24 Washing Machine Mechanic Relationship Specialty Start Date End Date Helen Medina MD [address] [facility] [address] [place] [address] PCP - General Family Medicine 02/16/23 Helen Medina MD [address] [facility] [address] [place] [address] PCP - ACO Reach 01/24/24 FOR RECORDS [...] BE BASED ON THE PRIMARY CLINICAL RECORDS. [facility]. provides no warranty or guarantee of the accuracy or completeness of information in this document.
[2025-05-16 16:46] LABS: Hematocrit 40.4 % (36.0-48.0); Hemoglobin 13.3 g/dL (12.0-16.0); Immature Granulocytes Abs Auto 0.10 10^3/uL (0.00-0.03); Immature Granulocytes Pct Auto 0.5 % (0.0-0.5); Lymphocytes Absolute Auto 0.5 10^3/uL (1.2-3.8); Mean Corpuscular HGB Conc 32.9 g/dL (29.9-35.2); Mean Corpuscular Hemoglobin 31.0 pg (26.7-34.0); Mean Corpuscular Volume 94.2 fL (81.0-99.0); Platelet Count 172 10^3/uL (150-450); Red Blood Count 4.29 10^6/uL (4.20-5.40); White Blood Count 20.2 10^3/uL (4.0-11.0)
[2025-05-16 17:01] LABS: Ammonia <10 umol/L (11-32)
[2025-05-16] MEDS: 0.9 % SODIUM CHLORIDE 1,000 ML 1000 ML IV (17:03)
[2025-05-16 17:07] LABS: INR 0.98; Partial Thromboplastin Time 21.0 sec (22.3-36.2); Prothrombin Time 10.4 sec (9.0-11.6)
[2025-05-16 17:14] LABS: Alanine Aminotransferase 22 U/L (14-59); Albumin Globulin Ratio 0.9; Albumin Level 3.4 g/dL (3.4-5.0); Alkaline Phosphatase 140 U/L (46-116); Anion Gap 14.2; Aspartate Amino Transferase 30 U/L (15-37); Blood Urea Nitrogen 18.0 mg/dL (7.0-18.0); Calcium 9.3 mg/dL (8.5-10.1); Carbon Dioxide 24.9 mmol/L (21.0-32.0); Chloride 107 mmol/L (98-107); Estimated GFR (African America >60 (>=60 mL/min/1.73m^2); Estimated GFR (Non-African Ame 59 (>=60 mL/min/1.73m^2); Globulin 3.6 g/dL; Glucose 161 mg/dL (74-106); Magnesium 1.7 mg/dL (1.8-2.4); Potassium 4.1 mmol/L (3.5-5.1); Salicylate <2.8 mg/dL (<=19.9); Sodium 142 mmol/L (136-145); Total Protein 7.0 g/dL (6.4-8.2)
[2025-05-16 17:17] LABS: Acetaminophen <2.0 ug/mL (10.0-30.0)
[2025-05-16 17:20] LABS: Creatine Kinase 354 U/L (26-192); Lactate/Lactic Acid 6.2 mmol/L (0.4-2.0)
[2025-05-16 18:04] LABS: Glucose Urine UA NEGATIVE (NEGATIVE)
[2025-05-16 18:04] LABS: ABG PCO2 26.6 mmHg (35.0-45.0); Allen Test POS (POSITIVE); HCO3 ABG 19.1 mmol/L (22.0-26.0); O2 Mode ROOM AIR; Oxygen Saturation ABG 96.6 %; PO2 ABG 75.4 mmHg (80.0-100.0)
[2025-05-16 18:05] LABS: Puncture Site RIGHT RADIAL
[2025-05-16 18:11] LABS: Cast Seen? SEEN #/LPF (NONE SEEN); Crystals Seen? None Seen #/HPF (None Seen); Urine Culture Indicated YES-FRMC
[2025-05-16 18:23] LABS: Cannabinoid Screen Urine NEGATIVE (NEGATIVE); Methamphetamines Screen Urine NEGATIVE (NEGATIVE); Tricyclic Antidepressant Urine NEGATIVE (NEGATIVE)
--- NOTE | 2025-05-16 18:40 | CT_ITS ---
The [address] [address] Patient Name: SON STROUD MRN: [id number] date: 1940 Sex: F Assigned Patient Location: ER Current Patient Location: ER Accession/Order Number: [id number] Exam Date: 05/16/2025 18:47 Report Date: 05/16/2025 19:00 At the request of: ALYCIA COLON DO Procedure: CT abdomen pelvis wo con CT Abdomen and Pelvis withoutcontrast TECHNIQUE: Axial imaging with 2-D reconstruction. . The CT exam was performed using one or more the following dose reduction techniques: Automated exposure control, adjustment of the MA and/or Kv according to patient size, or use of the iterative reconstruction technique. COMPARISON: None History: Fell. Head injury. LIMITATIONS: None LOWER THORAX mild atelectasis/pneumonitis. Small hiatal hernia LIVER: Unremarkable GALLBLADDER: No gallbladder abnormality identified. BILE DUCTS: No dilatation SPLEEN: Unremarkable PANCREAS: Unremarkable ADRENAL GLANDS: Unremarkable KIDNEYS:No obstruction. Contrast in the intrarenal collecting system. AORTA: No abdominal aortic aneurysm identified. RETROPERITONEUM: No significant retroperitoneal abnormalities identified. MESENTERY:Unremarkable STOMACH:Unremarkable SMALL BOWEL: The small bowel loops are nondistended. APPENDIX: The appendix is normal. COLON: Unremarkable URINARY BLADDER: Rodriges catheter and nondistended urinary bladder contrast in urinary bladder REPRODUCTIVE SYSTEM: Reproductive structures are unremarkable. PNEUMOPERITONEUM: None PERITONEAL FLUID:None BONY STRUCTURES: Lumbar degeneration. ABDOMINAL WALL: Unremarkable CT/CT abdomen pelvis wo con IMPRESSION: No acute findings. Impression dictated by: Mehul Yee M.D. 05/16/2025 7:00 PM Dictation Location: [employer] Electronically authenticated by: [id number] Y Date: 05/16/2025 19:00
--- NOTE | 2025-05-16 18:40 | CT_ITS ---
The [address] [address] Patient Name: SON STROUD MRN: [id number] date: 1940 Sex: F Assigned Patient Location: ER Current Patient Location: ER Accession/Order Number: [id number] Exam Date: 05/16/2025 18:47 Report Date: 05/16/2025 18:57 At the request of: ALYCIA COLON DO Procedure: CT chest wo con CT Chest without contrast TECHNIQUE: Axial imaging with 2-D reconstruction. The CT exam was performed using one or more the following dose reduction techniques: Automated exposure control, adjustment of the MA and/or Kv according to patient size, or use of the iterative reconstruction technique. History: Head injury. Possible stroke. COMPARISON: None THYROID: Unremarkable TRACHEA AND BRONCHI: Patent ESOPHAGUS: Unremarkable. HEART: Within normal limits PERICARDIAL EFFUSION: None CORONARY ARTERY CALCIFICATION: Present MEDIASTINUM: No adenopathy. No pneumoperitoneum. No mediastinal hematoma. PULMONARY ALYSSIA: No hilar mass or adenopathy is seen. THORACIC AORTA Unremarkable LUNG NODULE None LUNGS: Basilar groundglass parenchymal density. Atelectasis/pneumonitis. PLEURAL EFFUSION: None PNEUMOTHORAX: No pneumothorax seen. CHEST WALL: No abnormality AXILLA:Unremarkable BONY STRUCTURES Intact UPPER ABDOMEN: Images of the upper abdomen are noncontributory. CT/CT chest wo con IMPRESSION: Bibasilar atelectasis/pneumonitis. Impression dictated by: Mehul Yee M.D. 05/16/2025 6:57 PM Dictation Location: [employer] Electronically authenticated by: [id number] Y Date: 05/16/2025 18:57
--- NOTE | 2025-05-16 19:06 | ED.GENADUL1 ---
HPI HPI - General Adult General Chief complaint: Head Injury Stated complaint: HEAD INJURY Time Seen by Provider: 05/16/25 16:29 Source: unable to obtain Mode of arrival: ambulance Limitations: altered mental status and other Limitations comment: non-verbal at this time History of Present Illness HPI narrative: Patient is 85-year-old female, unknown history, presenting to the emergency department from home for being found down. Last known well was over 24 hours ago. The patient was found by her neighbors, laying in the bathtub altered, and covered in blood with a posterior scalp laceration. The patient is normally A and O x 3, lives alone, and fully independent. Unclear of the patient's past medical history. Per EMS, the patient had normal vital signs and normal blood glucose level. The patient is awake, confused, oriented x 0 and unable to answer questions or follow commands properly. Related Data Home Medications ?Medication ?Instructions ?Recorded ?Confirmed metoprolol tartrate 50 mg tablet mg 05/16/25 Allergies Allergy/AdvReac Type Severity Reaction Status Date / Time Unable to Assess Allergy Verified 05/16/25 16:41 Opioid HPI Opioid Management Most Recent Opioid Data: Ur Phencyclidine Scrn, (NEGATIVE) Negative Today, 17:55 Review of Systems ROS Status of ROS 10 or more systems reviewed and unremarkable except as noted in history and below Exam Narrative Exam Narrative: CONSTITUTIONAL: Awake, confused, oriented x 0. Unable to answer questions or follow commands appropriately. SKIN: Cool and moist. She has a stage I pressure ulcer on her buttocks.. EYES: No scleral icterus. No conjunctival pallor. No periorbital edema. EARS, NOSE, THROAT: Dry mucous membranes. RESPIRATORY: Clear to auscultation bilaterally, no wheezes, crackles, or stridor, no use of accessory muscles CARDIOVASCULAR: Tachycardic rate and regular rhythm. There is no S3, S4, murmur, rub. Radial and dorsalis pedis pulses are 2+ and symmetrical. GASTROINTESTINAL: Abdomen was soft, non-tender, and non-distended. There is no guarding or rebound tenderness MUSCULOSKELETAL: There is a posterior scalp laceration approximately 2 cm with no active bleeding. No obvious deformities. No C/T/L-spine tenderness. No tenderness throughout the major bones of her extremities. NEUROLOGIC: Moving all extremities equally. Withdraws extremities to pain x 4. Facies symmetric. Opens eyes spontaneously. Moans to pain. Constitutional Vital Signs, click to edit/add: Last Vital Signs Temp 98.7 F 05/16/25 16:29 Pulse 111 H 05/16/25 19:10 Resp 30 H 05/16/25 19:10 BP 160/78 H 05/16/25 19:12 Pulse Ox 97 05/16/25 19:10 O2 Del Method Room Air 05/16/25 16:29 Course Vital Signs Vital signs: Vital Signs Temperature 98.7 F 05/16/25 16:29 Pulse Rate 108 H 05/16/25 16:29 Respiratory Rate 28 H 05/16/25 16:29 Blood Pressure 172/70 H 05/16/25 16:29 Pulse Oximetry 96 05/16/25 16:29 Oxygen Delivery Method Room Air 05/16/25 16:29 Temperature 98.7 F 05/16/25 16:29 Pulse Rate 111 H 05/16/25 19:10 Respiratory Rate 30 H 05/16/25 19:10 Blood Pressure 160/78 H 05/16/25 19:12 Pulse Oximetry 97 05/16/25 19:10 Oxygen Delivery Method Room Air 05/16/25 16:29 Medical Decision Making MDM Narrative Medical decision making narrative: Patient is an 85-year-old female presenting to the emergency department from home after being found down in a bathtub covered in blood with a posterior scalp laceration. She is A&O x 3 and independent at baseline. Per EMS, patient has normal vital signs with a blood glucose of approximately 180. On arrival to [place], patient was placed on the business services representative that demonstrated sinus tachycardia by my interpretation. She is mildly hypertensive and tachypneic. She is afebrile and hemodynamically stable at this time. She saturate 97% on room air in no respiratory distress. On examination, she has a 2.5 cm posterior scalp laceration with no active bleeding. She has a stage I pressure ulcer on her buttocks/sacrum. She is encephalopathic, oriented x 0, nonverbal. She is not following commands. She is moving all of her extremities spontaneously, and withdraws to pain x 4. My differential diagnose includes CVA, intracranial hemorrhage, skull fracture, UTI/pneumonia, ACS, rhabdomyolysis, dehydration, metabolic encephalopathy, or other electrolyte/metabolic derangement. IV was established and laboratory studies were obtained. She was given 1 L bolus normal saline. Rosenberg scan was ordered including CT head/chest/abdomen/pelvis/C spine and CTA of the head/neck. Patient's last known well is unknown, outside the window for tPA. 12 Lead EKG: Sinus tachycardia at a rate of 114. Normal axis. No ST segment elevations. QRS, SD, and QTc interval within normal limits. Unchanged compared to prior EKG from [ ]. Final impression: normal sinus rhythm without evidence of acute myocardial ischemia. CT of the head independently reviewed/interpreted by myself demonstrated and discussed with radiology demonstrated foci of hemorrhagic contusion inferior portion of the anterior left frontal lobe with localized edema and mass effect. Subarachnoid blood in the occipital lobes bilaterally in the right cerebellar hemisphere. Right posterior scalp hematoma with underlying nondisplaced skull fracture. CT chest/abdomen/pelvis demonstrated no acute traumatic injuries. Patient was given contrast for the CTAs of the head/neck, unable to receive contrast for the studies CTA of the head/neck demonstrated no large vessel occlusion, aneurysms, or dissection. CT C-spine demonstrated no acute osseous abnormalities. Laboratory studies were significant for leukocytosis. No anemia or thrombocytopenia. No significant electrolyte derangement. Her lactic acid level was 6.2, elevated. No elevation in her ammonia. CPK mildly elevated to 354 without evidence of acute renal injury. Troponin nonelevated. Urinalysis was suggestive of UTI with positive nitrates, trace leukocyte esterase, 5-10 WBCs, and moderate bacteria. At this time, I did empirically treat the patient for an open skull fracture with IV ceftriaxone and vancomycin. Her Tdap shot was updated. The head of the bed was maintained at 30 degrees. Her blood pressure is approximately 150/75, within acceptable range for an acute intracranial hemorrhage. She remains hemodynamically stable and is protecting her airway, no concern for an acute airway compromise. Patient will require transfer to a higher level of care at a trauma center. I discussed the patient with on-call trauma surgeon, Dr. Wilfredo Moreau, who accepted the patient for transfer. FINAL IMPRESSION: #Acute traumatic intracranial hemorrhage, #Acute urinary tract infection, #Acute open skull fracture, #Acute lactic acidosis, #Acute rhabdomyolysis DISPOSITION: Transferred to [facility] CONDITION: Serious Medical Records Medical records reviewed: Yes I reviewed the patient's medical records Lab Data Lab results reviewed: Yes I reviewed the patient's lab results Labs: Lab Results 05/16/25 05/16/25 05/16/25 Range/Units 16:40 17:55 17:56 WBC 20.2 H (4.0-11.0) 10^3/uL RBC 4.29 (4.20-5.40) 10^6/uL Hgb 13.3 (12.0-16.0) g/dL Hct 40.4 (36.0-48.0) % MCV 94.2 (81.0-99.0) fL MCH 31.0 (26.7-34.0) pg MCHC 32.9 (29.9-35.2) g/dL RDW 13.7 (11.0-15.0) % Plt Count 172 (150-450) 10^3/uL MPV 11.6 (9.5-13.5) fL Neut % (Auto) 91.4 H (43.0-75.0) % Lymph % (Auto) 2.3 L (20.5-60.0) % [place] % (Auto) 5.7 (1.7-12.0) % Eos % (Auto) 0.0 L (0.9-7.0) % Baso % (Auto) 0.1 L (0.2-2.0) % Neut # (Auto) 18.4 H (1.4-6.5) 10^3/uL Lymph # (Auto) 0.5 L (1.2-3.8) 10^3/uL [place] # (Auto) 1.2 H (0.3-0.8) 10^3/uL Eos # (Auto) 0.0 (0.0-0.7) 10^3/uL Baso # (Auto) 0.0 (0.0-0.1) 10^3/uL Abs Immat Gran (auto) 0.10 H (0.00-0.03) 10^3/uL Imm/Tot Granulo (auto) 0.5 (0.0-0.5) % PT 10.4 (9.0-11.6) sec INR 0.98 APTT 21.0 L (22.3-36.2) sec Puncture Site Right radial ABG pH 7.464 H (7.350-7.450) ABG pCO2 26.6 L (35.0-45.0) mmHg ABG pO2 75.4 L (80.0-100.0) mmHg ABG HCO3 19.1 L (22.0-26.0) mmol/L ABG O2 Saturation 96.6 % ABG Base Excess -4.7 L (-2.0-2.0) mmol/L [place] Test Pos (POSITIVE) Sodium 142 (136-145) mmol/L Potassium 4.1 (3.5-5.1) mmol/L Chloride 107 (98-107) mmol/L Carbon Dioxide 24.9 (21.0-32.0) mmol/L Anion Gap 14.2 BUN 18.0 (7.0-18.0) mg/dL Creatinine 0.90 (0.55-1.02) mg/dL Est GFR ( Amer) >60 (>=60 mL/min/1.73m^2) Est GFR (Non-Af Amer) 59 L (>=60 mL/min/1.73m^2) BUN/Creatinine Ratio 20.0 Glucose 161 H (74-106) mg/dL Lactate 6.2 H* (0.4-2.0) mmol/L Calcium 9.3 (8.5-10.1) mg/dL Magnesium 1.7 L (1.8-2.4) mg/dL Total Bilirubin 0.3 (0.2-1.0) mg/dL AST 30 (15-37) U/L ALT 22 (14-59) U/L Alkaline Phosphatase 140 H (46-116) U/L Ammonia <10 L (11-32) umol/L Total Creatine Kinase 354 H* (26-192) U/L Troponin I High Sens 17.4 (4.0-51.3) pg/mL Total Protein 7.0 (6.4-8.2) g/dL Albumin 3.4 (3.4-5.0) g/dL Globulin 3.6 g/dL Albumin/Globulin Ratio 0.9 Urine Color Lt. yellow (YELLOW) Urine Clarity Sl cloudy (CLEAR) Urine pH 5.5 (5.0-9.0) Ur Specific [place] 1.020 (1.005-1.025) Urine Protein Trace (NEG/TRACE) mg/dL Urine Glucose (UA) Negative (NEGATIVE) mg/dL Urine Ketones 15 A (NEGATIVE) mg/dL Urine Occult Blood Moderate A (NEGATIVE) Urine Nitrite Positive A (NEGATIVE) Urine Bilirubin Negative (NEGATIVE) Urine Urobilinogen 0.2 (0.2-1.0) EU/dL Ur Leukocyte Esterase Trace A (NEGATIVE) Urine RBC 2-5 A (0-2) #/HPF Urine WBC 5-10 A (NONE SEEN) #/HPF Ur Squamous Epith Cells Many A (NONE/RARE) #/LPF Urine Crystals None seen (None Seen) #/HPF Urine Bacteria Moderate A (NONE SEEN) #/HPF Urine Casts Seen A (NONE SEEN) #/LPF Hyaline Casts Few Urine Mucus Large A (NONE SEEN) Ur Culture Indicated? Yes-[facility] [place] Salicylates <2.8 (<=19.9) mg/dL Urine Opiates Screen Negative (NEGATIVE) Ur Buprenorphine Scrn Negative (NEGATIVE) Ur Oxycodone Screen Negative (NEGATIVE) Urine Methadone Screen Negative (NEGATIVE) Acetaminophen <2.0 L (10.0-30.0) ug/mL Ur Barbiturates Screen Negative (NEGATIVE) U Tricyclic Antidepress Negative (NEGATIVE) Ur Phencyclidine Scrn Negative (NEGATIVE) Ur Amphetamines Screen Negative (NEGATIVE) U Methamphetamines Scrn Negative (NEGATIVE) U Benzodiazepines Scrn Negative (NEGATIVE) Urine Cocaine Screen Negative (NEGATIVE) U Cannabinoids Screen Negative (NEGATIVE) Ethanol Quant <3 mg/dL POC Glucose 140 H (74-106) mg/dL Blood Type O Positive Antibody Screen Negative Imaging Data CT scan - abdomen: Radiologist's impression: ITS Impressions Cervical Spine CT 05/16/25 16:30 IMPRESSION: No acute cervical spine fracture. Right the posterior skull base fracture. Impression dictated by: Mehul Yee M.D. 05/16/2025 5:35 PM Dictation Location: [place] [facility] Electronically authenticated by: [id number] Y Date: 05/16/2025 17:35 Chest X-Ray 05/16/25 16:30 IMPRESSION: No acute process. Impression dictated by: Mehul Yee M.D. 05/16/2025 5:27 PM Dictation Location: [place] [facility] Electronically authenticated by: [id number] Y Date: 05/16/2025 17:[address] 05/16/25 16:30 IMPRESSION: Foci of hemorrhagic contusion inferior portion of the anterior left frontal lobe with localized edema and mass effect. Subarachnoid blood in the occipital lobes bilaterally and the right cerebellar hemisphere. Right posterior scalp hematoma with underlying nondisplaced skull fracture. Impression dictated by: Mehul Yee M.D. 05/16/2025 5:33 PM Dictation Location: [facility] Electronically authenticated by: [id number] Y Date: 05/16/2025 17:33 Head CTA 05/16/25 16:30 IMPRESSION: No occlusion, critical stenosis or dissection of the extracranial or intracranial circulation. Impression dictated by: Mehul Yee M.D. 05/16/2025 6:23 PM Dictation Location: [facility] Electronically authenticated by: [id number] Y Date: 05/16/2025 18:23 Neck CTA 05/16/25 16:30 IMPRESSION: No occlusion, critical stenosis or dissection of the extracranial or intracranial circulation. Impression dictated by: Mehul Yee M.D. 05/16/2025 6:23 PM Dictation Location: [facility] Electronically authenticated by: [id number] Y Date: 05/16/2025 18:23 Abdomen/Pelvis CT 05/16/25 18:40 IMPRESSION: No acute findings. Impression dictated by: Mehul Yee M.D. 05/16/2025 7:00 PM Dictation Location: [facility] Electronically authenticated by: [id number] Y Date: 05/16/2025 19:[address] 05/16/25 18:40 IMPRESSION: Bibasilar atelectasis/pneumonitis. Impression dictated by: Mehul Yee M.D. 05/16/2025 6:57 PM Dictation Location: [facility] Electronically authenticated by: [id number] Y Date: 05/16/2025 18:57 ECG Data Attestation: I personally reviewed and interpreted this ECG as follows: Discharge Plan Discharge Chief Complaint: Head Injury Clinical Impression: Acute UTI Intracranial hemorrhage following injury with open intracranial wound Qualifiers: Encounter type: initial encounter Loss of consciousness presence/duration: with LOC of unspecified duration Qualified Code(s): S06.309A - Unspecified focal traumatic brain injury with loss of consciousness of unspecified duration, initial encounter Rhabdomyolysis Qualifiers: Encounter type: initial encounter Patient Disposition: [facility] Time of Disposition Decision: 19:25 Discharge Location: [facility] Condition: Serious Mode of Transportation: EMS
--- NOTE | 2025-05-16 19:14 | PC.NURSE ---
Assumed care for this pt, report received from Lupe Arzola RN, pt responds to name by eye movement but is non verbal and does not follow commands
[2025-05-16 19:42] LABS: Lactate/Lactic Acid 2.9 mmol/L (0.4-2.0)
[2025-05-16] MEDS: VANCOMYCIN HCL 1,000 MG in 0.9 % SODIUM CHLORIDE 250 ML 250 MG IV (20:18)
[2025-05-16] MEDS: DIPHTH,PERTUSS(ACELL),TET VAC 0.5 ML SYRINGE IM (20:18)
--- NOTE | 2025-05-16 20:44 | PC.NURSE ---
[facility] here for transport, report given to Kurt [employer]PORATE LICENSED BROKER
--- NOTE | 2025-05-16 20:50 | PC.NURSE ---
Report called to Marci MARTIN at [facility] ER
== END 2025-05-16 20:52 | disposition short-term general hospital (02) ==
PROVIDERS: Emergency Provider Student in an Organized Health Care Education/Training Program; PCP Family Medicine
DX: S02.81XB Fracture of other specified skull and facial bones, right side, initial encounter for open fracture (principal); S06.30AA Unspecified focal traumatic brain injury with loss of consciousness status unknown, initial encounter; L89.301 Pressure ulcer of unspecified buttock, stage 1; N39.0 Urinary tract infection, site not specified; E87.21 Acute metabolic acidosis; M62.82 Rhabdomyolysis
CPT/HCPCS: 36415; 36600; 51702; 70450; 70496; 70498; 71045; 71250; 72125; 74176; 80053; 80179; 80307; 80320; 80329; 81001; 82140; 82550; 82805; 83605; 83735; 84484; 85025; 85610; 85730; 86850; 86900; 86901; 87086; 87088; 87186; 90471; 90715; 93005; 96361; 96365; 96375; 99285; J0696; J3373; Q9967

== ENCOUNTER 2025-05-29 07:50 | Outpatient (OUT) | payer MEDICARE, OTHER, SELFPAY ==
--- OUTSIDE RECORDS SUMMARY | 2021-07-29 04:45 | XMS_ITS | Continuity of Care Document ---
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 [address], [place], [id number], [place]. tel:[phone] [facility], [address], [place], [id number], [place] tel:[phone] [facility] No Information Bola Jacobson. [address], [place], [id number], [place]. tel:[phone] OFFICE/OUTPATI ENT VISIT, EST [facility], [address], [place], [id number], [place] tel:[phone] [facility] No Information Bola Jacobson. [address], [place], [id number], [place]. tel:[phone] Family History Family Member Type Diagnosis Age At Onset No Information Immunizations Vaccine Date Status Comments Moderna Booster administered Source: New Immunization Record Flu (High Dose) administered Note: vis gi cirilo ; Source: New Immunization Record Zoster administered Source: New Imm unization Record Payers Payer name Insurance type Covered constitution party ID Authoriza tion(s) Medicare PPS [id number] Medicare PPS [id number] Social History Type Description Quantity Date Captured Comments Alcohol Use Details Unknown Caffeine Use Details Unknown Tobacco Use Status No Information Smoking Status No Information Sex Female Sexual Orientation Straight or heterosexual Gender Identity Female Chief Complaint And Reason For Visit No Information Reason For Referral Reason For Referral No Information History Of Present Illness Encounter Date Complaint History Of Prese nt Illness No Information Functional Status Date Functional Assessmen t No Information Instructions Date Instruction Additional Infor mation No Information Assessments Type Assessment Date No Information Patient Care Teams Name Effective Dates (start - stop) Status Members No Information
--- OUTSIDE RECORDS SUMMARY | 2025-05-16 16:25 | XMS_ITS | Encounter Summary ---
Author Organization [email or web address] Address [id number] [address] [place] [address] Care Team Providers Care Qa Engineer Name Role Phone Pcp, Not In System Primary Care Provider Unavail able Encounter Details Date Type Department Care Team (Late st Contact Info) Description 05/16/2025 4:25 PM EDT Ancillary Procedure [facility] External Film Storage [address] [place] [phone] Pain Social History Tobacco Use Types Packs/Day Years Used Date Smoking Tobacco: Never Assessed [facility] Utilities Answer Date Recorded In the past 12 months has th [employer] electric, gas, oil, or water company threatened to shut off services in your home? No 05/17/2025 AUDIT-C Answer Date Recorded Q1: How often do you have a drink containing alc ohol? Monthly or less 05/17/2025 Q2: How many drinks containi ng alcohol do you have on a typical day when you are drinking? 1 or 2 05/17/2025 Q3: How often do you have si x or more drinks on one occasion? Never 05/17/2025 Overall Financial Resource Strain (CARDIA) Answe r Date Recorded How hard is it for you to pa y for the very basics like food, housing, medical care, and heating? Not hard at all 05/17/2025 PRAPARE - Transportation Answer Date Re corded In the past 12 months, has l ack of transportation kept you from medical appointments or from getting medications? No 04/26 In the past 12 months, has l ack of transportation kept you from meetings, work, or from getting things needed for daily living? No 05/17/2025 Housing Instability Answer Date Recorde d Are you worried or concerned that in the next two months you may not have stable housing that you own, rent or stay in as a part of a household? No 05/17/2025 Childcare Answer Date Recorded Childcare Unknown 03/06/2019 Employment Answer Date Recorded Employment Unknown 03/06/2019 Hunger Screening Answer Date Recorded Within the past 12 months we worried whether our food would run out before we got money to buy more. Never True 05/17/2025 Within the past 12 months th e food we bought just didn't last and we didn't have money to get more. Never True 05/17/2025 Comments Unknown Sex and Gender Information Value Date Recorded Sex Assigned at Not on file Legal Sex Female 12:07 PM EDT Gender Identity Not on file Sexual Orientation Not on file documented as of this encounter Plan of Treatment Not on file documented as of this encounter Procedures Procedure Name Priority Date/Time Associated Diagnosis Comments XR CHEST 1 VW Routine 05/16/2025 4:25 PM EDT Pain documented in this encounter Results * X-ray chest 1 view (05/16/2025 4:25 PM EDT) us Scanning Provider External IMG DIAGNOSTIC IMAGIN G ORDERABLES Final Result documented in this encounter Visit Diagnoses Diagnosis Pain Generalized pain documented in this encounter Care Teams Qa Engineer Relationship Specialty Start Date End Date Pcp, [place] [address] PCP - General Family Medicine 05/16/25 05/16/25 documented as of this encounter
--- OUTSIDE RECORDS SUMMARY | 2025-05-16 16:45 | XMS_ITS | Encounter Summary ---
Author Organization [facility] tem Address [id number] [address] [place] [address] Care Team Providers Care Agriscience Technology Instructor Name Role Phone Pcp, Not In System Primary Care Provider Unavail able Reason for Visit * Diagnostic Imaging (Routine) - Closed Specialty Diagnoses / Procedures Referred By Contac t Referred To Contact Radiology Diagnoses Pain Procedures CT brain without contrast [facility] [employer] [address] [place] [phone] Phone: tel: fax: Referral ID Status Reason Start Date Expiration Date Visits Re quested Visits Authorized [id number] Closed 05/16/2025 05/16/2026 1 1 Encounter Details Date Type Department Care Team (Late st Contact Info) Description 05/16/2025 4:45 PM EDT Ancillary Procedure [facility] [address] [place] [phone] Pain Social History Tobacco Use Types Packs/Day Years Used Date Smoking Tobacco: Never Assessed [facility] Utilities Answer Date Recorded In the past 12 months has [employer] electric, gas, oil, or water company [...] Procedure Name Priority Date/Time Associated Diagnosis Comments CT BRAIN WO CONT Routine 05/16/2025 4:45 PM EDT Pain documented in this encounter Results * CT brain without contrast (05/16/2025 4:45 PM EDT) us Scanning Provider External IMG CT ORDERABLES Fin al Result documented in this encounter Visit Diagnoses Diagnosis Pain Generalized pain documented in this encounter Care Teams Agriscience Technology Instructor Relationship Specialty Start Date End Date Pcp, [place] [address] PCP - General Family Medicine 05/16/25 05/16/25 documented as of this encounter
--- OUTSIDE RECORDS SUMMARY | 2025-05-16 16:50 | XMS_ITS | Encounter Summary ---
Author Organization [facility] tem Address [id number] [address] [place] [address] Care Team Providers Care Replanting Machine Crew Name Role Phone Pcp, Not In System Primary Care Provider Unavail able Reason for Visit * Diagnostic Imaging (Routine) - Closed Specialty Diagnoses / Procedures Referred By Contac t Referred To Contact Radiology Diagnoses Pain Procedures CT cervical spine without contrast [facility] [address] [place] [phone] Phone: tel: fax: Referral ID Status Reason Start Date Expiration Date Visits Re quested Visits Authorized [id number] Closed 05/16/2025 05/16/2026 1 1 Encounter Details Date Type Department Care Team (Late st Contact Info) Description 05/16/2025 4:50 PM EDT Ancillary Procedure [facility] [address] [place] [phone] Pain Social History Tobacco Use Types Packs/Day Years Used Date Smoking Tobacco: Never Assessed [facility] Utilities Answer Date Recorded In the past 12 months has [employer] electric, gas, oil, or water company threatened [...] Name Priority Date/Time Associated Diagnosis Comments CT CERVICAL SPINE WO CONT Routine 05/16/2025 4:50 PM EDT Pain documented in this encounter Results * CT cervical spine without contrast (05/16/2025 4:50 PM EDT) us Scanning Provider External IMG CT ORDERABLES Fin al Result documented in this encounter Visit Diagnoses Diagnosis Pain Generalized pain documented in this encounter Care Teams Replanting Machine Crew Relationship Specialty Start Date End Date Pcp, [place] [address] PCP - General Family Medicine 05/16/25 05/16/25 documented as of this encounter
--- OUTSIDE RECORDS SUMMARY | 2025-05-16 17:40 | XMS_ITS | Encounter Summary ---
Author Organization [employer] [facility] tem Address [facility] [id number] [address] [place] [address] Care Team Providers Care Framing Mill Supervisor Name Role Phone Pcp, Not In System Primary Care Provider Unavail able Reason for Visit * Diagnostic Imaging (Routine) - Closed Specialty Diagnoses / Procedures Referred By Contac t Referred To Contact Radiology Diagnoses Pain Procedures CT angiogram head [facility] [employer] [address] [place] [phone] Phone: tel: fax: Referral ID Status Reason Start Date Expiration Date Visits Re quested Visits Authorized [id number] Closed 05/16/2025 05/16/2026 1 1 Encounter Details Date Type Department Care Team (Late st Contact Info) Description 05/16/2025 5:40 PM EDT Ancillary Procedure [facility] [address] [place] [phone] Pain Social History Tobacco Use Types Packs/Day Years Used Date Smoking Tobacco: Never Assessed [facility] Utilities Answer Date Recorded In the past 12 months has [employer], gas, oil, or water company threatened [...] Name Priority Date/Time Associated Diagnosis Comments CT CTA HEAD Routine 05/16/2025 5:40 PM EDT Pain documented in this encounter Results * CT angiogram head (05/16/2025 5:40 PM EDT) us Scanning Provider External IMG CT ORDERABLES Fin al Result documented in this encounter Visit Diagnoses Diagnosis Pain Generalized pain documented in this encounter Care Teams Framing Mill Supervisor Relationship Specialty Start Date End Date [place]cp, [place] [address] PCP - General Family Medicine 05/16/25 05/16/25 documented as of this encounter
--- OUTSIDE RECORDS SUMMARY | 2025-05-16 17:45 | XMS_ITS | Encounter Summary ---
Author Organization [employer] [facility] tem Address [facility] [id number] [address] [place] [address] Care Team Providers Care Doctor Of Podiatry Name Role Phone Pcp, Not In System Primary Care Provider Unavail able Reason for Visit * Diagnostic Imaging (Routine) - Closed Specialty Diagnoses / Procedures Referred By Contac t Referred To Contact Radiology Diagnoses Pain Procedures CT angiogram carotid [facility] [address] [place] [phone] Phone: tel: fax: Referral ID Status Reason Start Date Expiration Date Visits Re quested Visits Authorized [id number] Closed 05/16/2025 05/16/2026 1 1 Encounter Details Date Type Department Care Team (Late st Contact Info) Description 05/16/2025 5:45 PM EDT Ancillary Procedure [facility] [address] [place] [phone] Pain Social History Tobacco Use Types Packs/Day Years Used Date Smoking Tobacco: Never Assessed [facility] Utilities Answer Date Recorded In the past 12 months has [employer] electric, gas, oil, or water company threatened [...] Priority Date/Time Associated Diagnosis Comments CT CTA CAROTID Routine 05/16/2025 5:45 PM EDT Pain documented in this encounter Results * CT angiogram carotid (05/16/2025 5:45 PM EDT) us Scanning Provider External IMG CT ORDERABLES Fin al Result documented in this encounter Visit Diagnoses Diagnosis Pain Generalized pain documented in this encounter Care Teams Doctor Of Podiatry Relationship Specialty Start Date End Date [place] [address] PCP - General Family Medicine 05/16/25 05/16/25 documented as of this encounter
--- OUTSIDE RECORDS SUMMARY | 2025-05-16 18:45 | XMS_ITS | Encounter Summary ---
Author Organization [employer] [facility] tem Address [facility] [place] [id number] [address] [place] [address] Care Team Providers Care Clinical Appeals Rn Name Role Phone Pcp, Not In System Primary Care Provider Unavail able Reason for Visit * Diagnostic Imaging (Routine) - Closed Specialty Diagnoses / Procedures Referred By Contac t Referred To Contact Radiology Diagnoses Pain Procedures CT chest without contrast [facility] [address] [place] [phone] Phone: tel: fax: Referral ID Status Reason Start Date Expiration Date Visits Re quested Visits Authorized [id number] Closed 05/16/2025 05/16/2026 1 1 Encounter Details Date Type Department Care Team (Late st Contact Info) Description 05/16/2025 6:45 PM EDT Ancillary Procedure [facility] [address] [place] [phone] Pain Social History Tobacco Use Types Packs/Day Years Used Date Smoking Tobacco: Never Assessed [facility] Utilities Answer Date Recorded In the past 12 months has [employer] electric, gas, oil, or water company threatened [...] Name Priority Date/Time Associated Diagnosis Comments CT CHEST WO CONT Routine 05/16/2025 6:45 PM EDT Pain documented in this encounter Results * CT chest without contrast (05/16/2025 6:45 PM EDT) us Scanning Provider External IMG CT ORDERABLES Fin al Result documented in this encounter Visit Diagnoses Diagnosis Pain Generalized pain documented in this encounter Care Teams Clinical Appeals Rn Relationship Specialty Start Date End Date [place]cp, [place] [address] PCP - General Family Medicine 05/16/25 05/16/25 documented as of this encounter
--- OUTSIDE RECORDS SUMMARY | 2025-05-16 22:17 | XMS_ITS | Encounter Summary ---
Author Organization [email or web address] tem Address [id number] [address] [place] [address] Care Team Providers Care Electrician Journeyman Wireman Name Role Phone Helen Medina MD Primary Care Provider [phone] Reason for Referral * Speech Pathology (Routine) - Pending Review Specialty Diagnoses / Procedures Referred By Contcas t Referred To Contact Speech Pathology Diagnoses ICH (intracerebral hemorrhage) ([facility]) Merari Lepe PA [address] [place] [address] Phone: tel: fax: Referral ID Status Reason Start Date Expiration Date Visits Requested Visits Authorized [id number] Pending Review Specialty Services Required 05/20/2025 11/20/2025 12 12 * Consultation (Routine) - Pending Review Specialty Diagnoses / Procedures Referred By Contcas t Referred To Contact Diagnoses ICH (intracerebral hemorrhage) ([facility]) Merari Lepe PA [address] [place] [address] Phone: tel: fax: Referral ID Status Reason Start Date Expiration Date V isits Requested Visits Authorized [id number] Pending Review 05/20/2025 05/20/2026 1 1 * Physical Therapy (Routine) - Pending Review Specialty Diagnoses / Procedures Referred By Contac t Referred To Contact Rehabilitation Diagnoses ICH (intracerebral hemorrhage) ([facility]) Merari Lepe PA [address] [place] [address] Phone: tel: fax: Referral ID Status Reason Start Date Expiration Date Visits Requested Visits Authorized [id number] Pending Review Specialty Services Required 05/20/2025 11/20/2025 12 12 * Occupational Therapy (Routine) - Pending Review Specialty Diagnoses / Procedures Referred By Contac t Referred To Contact Occupational Therapy Diagnoses ICH (intracerebral hemorrhage) ([facility]) Merari Lepe PA [address] [place] [address] Phone: tel: fax: Referral ID Status Reason Start Date Expiration Date Visits Requested Visits Authorized [id number] Pending Review Specialty Services Required 05/20/2025 11/20/2025 12 12 * Misc (Routine) - Authorized Specialty Diagnoses / Procedures Referred By Contac t Referred To Contact Procedures Adult diet Merari Lepe PA [address] [place] [address] Phone: tel: fax: Referral ID Status Reason Start Date Expiration Date V isits Requested Visits Authorized [id number] Authorized 05/20/2025 05/20/2026 1 1 Reason for Visit * Reason Comments Head Injury * Auth/Cert Specialty Diagnoses / Procedures Referred By Contac t Referred To Contact Diagnoses ICH (intracerebral hemorrhage) ([facility]) [facility] - Emergency Department [address] [place] [address] Phone: tel: fax: Referral ID Status Reason Start Date Expiration Date Visits Re quested Visits Authorized [id number] 1 1 Encounter Details Date Type Department Care Team (Latest Contact Info) Description 05/16/2025 10:17 PM EDT - 05/20/2025 4:15 PM EDT Hospital Encounter [facility] - GEN 9 Acute [address] [place] [id number] Jd Pires MD [address] [place], [place] [id number] Wilfredo Moreau MD [address] [place], [place] [id number] ICH (intracerebral hemorrhage) ([facility]) (Primary Dx) Discharge Disposition: Senior Care Facility-Medicare Cert Social History Tobacco Use Types Packs/Day Years Used Date Smoking Tobacco: Never Smokeless Tobacco: Never Tobacco Cessation:Counseling Given: Not Answered Alcohol Use Standard Drinks/Week Comments Not Currently 0 (1 standard drink = 0.6 oz pur e alcohol) [facility] Utilities Answer Date Recorded In the past 12 months has th e [place], gas, oil, or water [employer] threatened to shut off services in your home? No 05/19/2025 AUDIT-C Answer Date Recorded Q1: How often do you have a drink containing alcohol? Patient declined 05/19/2025 Q2: How many drinks containi ng alcohol do you have on a typical day when you are drinking? Patient does not drink Q3: How often do you have si x or more drinks on one occasion? Never 05/19/2025 Overall Financial Resource Strain (CARDIA) Answe r Date Recorded How hard is it for you to pa y for the very basics like food, housing, medical care, and heating? Not hard at all 05/17/2025 PHQ-2 Answer Date Recorded Total Score 1 05/19/2025 PRAPARE - Transportation Answer Date Re corded In the past 12 months, has l ack of transportation kept you from medical appointments or from getting medications? No 04/26 In the past 12 months, has l ack of transportation kept you from meetings, work, or from getting things needed for daily living? No 05/19/2025 Housing Instability Answer Date Recorde d Are you worried or concerned that in the next two months you may not have stable housing that you own, rent or stay in as a part of a household? No 05/19/2025 Childcare Answer Date Recorded Childcare Unknown 03/06/2019 Employment Answer Date Recorded Employment Unknown 03/06/2019 Hunger Screening Answer Date Recorded Within the past 12 months we worried whether our food would run out before we got money to buy more. Never True 05/19/2025 Within the past 12 months th e food we bought just didn't last and we didn't have money to get more. Never True 05/19/2025 Comments No Sex and Gender Information Value Date Recorded Sex Assigned at Not on file Legal Sex Female 12:07 PM EDT Gender Identity Not on file Sexual Orientation Not on file documented as of this encounter Last Filed Vital Signs Vital Sign Reading Time Taken Comments Blood Pressure 154/68 05/20/2025 1:44 PM EDT Pulse 86 05/20/2025 1:44 PM EDT Temperature 36.6 C (97.9 F) 05/20/2025 7:16 AM EDT Respiratory Rate 25 05/20/2025 1:44 PM EDT Oxygen Saturation 94% 05/20/2025 1:44 PM EDT Inhaled Oxygen Concentration - - Weight 76.3 kg (168 lb 3.4 oz) 05/19/2025 1:00 A M EDT Height 167.6 cm (5' 6 ) 05/17/2025 1:20 AM EDT Body Mass Index 27.15 05/17/2025 1:20 AM EDT documented in this encounter Functional Status * Audit-C Score Answer Date of Assessment Author -1 05/19/2025 2:53 PM EDT Angela Parada RN * Question Answer Date of Assessment Author Q1: How often do you have a drink containing alcohol? Patient declined 05/19/2025 2:53 PM EDT Angela Parada RN Q2: How many drinks containing alcohol do you have on a typical day when you are drinking? Patient does not drink 05/19/2025 2:53 PM EDT Angela Parada RN Q3: How often do you have six or more drinks on one occasion? Never 05/19/2025 2:53 PM EDT Angela Parada RN * Question Answer Date of Assessment Author Functional Status Independent 05/17/2025 11:23 AM EDT Litzy Shipman RN documented as of this encounter Mental Status * Question Answer Entry Date Author Overall Cognitive Status X 05/19/2025 10:29 AM EDT Cass Alexis PT * Question Answer Entry Date Author Overall Cognitive Status X 05/17/2025 9:55 AM EDT Julienne Jolley CCC-MARKETING PROGRAMS MANAGER documented in this encounter Discharge Summaries * ALIX Marks - 05/20/2025 1:11 PM EDT Images from the original note were not included. [facility] TRAUMA SURGERY-DISCHARGE SUMMARY DISCHARGE NOTE / SUMMARY Patient ID: Mei Guardado : 1940 Acct: [id number] Admit Date: 05/16/2025 Discharge Date: 05/20/2025 Admitting Physician: Wilfredo Moreau MD Consults: Neurosurgery and neuro interventional Discharge Diagnoses: Patient Active Problem List Diagnosis Date Noted Fall at home, initial encounter 05/20/2025 Closed fracture of right side of base of skull ([facility]) 05/20/2025 Primary hypertension 05/20/2025 Traumatic rhabdomyolysis 05/20/2025 ICH (intracerebral hemorrhage) ([facility]) 05/16/2025 Past Medical History: Diagnosis Date Breast cancer ([facility]) HOSPITAL COURSE SUMMARY: Mei Guardado is an 85 y.o. White or female transferred from [facility] for trauma consult after being found unresponsive at home in her bathtub after a fall. She was found to have a skull fracture, subarachnoid hemorrhage, IPH, and rhabdomyolysis. She was admitted to the neuro ICU. Below is a summary of her injuries and medical problems. Traumatic fall - physical therapy and occupational therapy evaluations when able Subarachnoid hemorrhage of the bilateral occipital lobes and right cerebellar hemisphere, right posterior scalp hematoma with underlying nondisplaced skull fracture, hemorrhagic contusion to the inferior portion of the anterior left frontal lobe with localized mass effect - consult neurosurgery - maintain elevated the head of the bed - systolic blood pressure goal less than 140 - Keppra load, continue x7days as prophylaxis - repeat CTH 05/17 stable - neuro checks - HOLD A/C Right facial droop, questionable stroke - consult Neurology - blood pressure control - monitor vitals - neuro checks - MRI brain canceled, pt improving - stroke has signed off Lactic acidosis, leukocytosis - lactate 6.2 at [facility] and WBC 20.2 - possible sepsis given leukocytosis, tachycardia, and lactic acidosis, however no identifiable source of infection at this time. Possible aspiration given CT chest results - daily labs, leukocytosis now resolved - lactate now normal - blood culture neg x2d and urine culture neg - Rocephin>Unasyn, will continue for 5 days in light of concern for aspiration, no culture done at time of initiation Rhabdomyolysis - 354 at [facility] - repeat CK 1975, myoglobin at 967 - monitor UOP, IVF hydration Hypertension - Hx HTN on Metoprolol 25mg bid - 05/19 changed to Coreg 12.5mg bid for improved BP control--> not effective, will discharge on home Metoprolol - Hydralazine/Labetalol prn to keep SBP<140 Disposition: Discharge to SNF. Follow-up with PCP. Physical Exam Vitals and nursing note reviewed. Constitutional: General: She is not in acute distress. Appearance: She is not diaphoretic. HENT: Head: Contusion (R scalp/neck) present. Cardiovascular: Rate and Rhythm: Normal rate and regular rhythm. Heart sounds: Normal heart sounds. Pulmonary: Effort: Pulmonary effort is normal. No respiratory distress. Breath sounds: Normal breath sounds. Abdominal: General: Bowel sounds are normal. There is no distension. Palpations: Abdomen is soft. Tenderness: There is no abdominal tenderness. There is no guarding. Skin: General: Skin is warm and dry. Capillary Refill: Capillary refill takes less than 2 seconds. Neurological: Mental Status: She is alert and oriented to person, place, and time. The patient was seen and examined on day of discharge and this discharge summary is in conjunction with any daily progress note from day of discharge. Pulse: 85 Resp: 24 BP: 163/77 Temp: 36.6 ??C (97.9 ??F) Discharged Condition: Good DISCHARGE INSTRUCTIONS: Discharge Medications: Medication List START taking these medications Instructions Last Dose Given Next Dose Due acetaminophen 500 mg tablet Commonly known as: TYLENOL EXTRA STRENGTH Take 2 tablets (1,000 mg total) by mouth every 6 (six) hours as needed for headaches. levETIRAcetam 500 mg tablet Commonly known as: KEPPRA Take 1 tablet (500 mg total) by mouth every 12 (twelve) hours for 3 days. loratadine 10 mg tablet Commonly known as: CLARITIN Start taking on: May 21, 2025 Take 1 tablet (10 mg total) by mouth in the morning. sennosides-docusate sodium 8.6-50 mg Commonly known as: SENOKOT-S Take 2 tablets by mouth nightly. CONTINUE taking these medications Instructions Last Dose Given Next Dose Due metoprolol tartrate 50 mg tablet Commonly known as: LOPRESSOR Take 1 tablet (50 mg total) by mouth in the morning and 1 tablet (50 mg total) before bedtime. SYSTANE COMPLETE OPHT Instill 1 drop to eye daily as needed. STOP taking these medications aflibercept 8 mg/0.07 mL injection Commonly known as: EYLEA HD Where to Get Your Medications Information about where to get these medications is not yet available Ask your nurse or doctor about these medications acetaminophen 500 mg tablet levETIRAcetam 500 mg tablet loratadine 10 mg tablet sennosides-docusate sodium 8.6-50 mg Your medication list START taking these medications Instructions Last Dose Given Next Dose Due acetaminophen 500 mg tablet Commonly known as: TYLENOL EXTRA STRENGTH Take 2 tablets (1,000 mg total) by mouth every 6 (six) hours as needed for headaches. levETIRAcetam 500 mg tablet Commonly known as: KEPPRA Take 1 tablet (500 mg total) by mouth every 12 (twelve) hours for 3 days. loratadine 10 mg tablet Commonly known as: CLARITIN Start taking on: May 21, 2025 Take 1 tablet (10 mg total) by mouth in the morning. sennosides-docusate sodium 8.6-50 mg Commonly known as: SENOKOT-S Take 2 tablets by mouth nightly. CONTINUE taking these medications Instructions Last Dose Given Next Dose Due metoprolol tartrate 50 mg tablet Commonly known as: LOPRESSOR SYSTANE COMPLETE OPHT STOP taking these medications aflibercept 8 mg/0.07 mL injection Commonly known as: EYLEA HD Where to Get Your Medications Information about where to get these medications is not yet available Ask your nurse or doctor about these medications acetaminophen 500 mg tablet levETIRAcetam 500 mg tablet loratadine 10 mg tablet sennosides-docusate sodium 8.6-50 mg Scheduled Outpatient Follow Up: No future appointments. Follow-up Information HELEN MEDINA MD . Specialty: Family Medicine Contact information: [address] [place] [id number] Time Spent: 32 minutes Stew Lepe PA-C Trauma Services Pager [phone] 05/20/25 1:12 PM ALIX Marks 05/20/25 1319 documented in this encounter Medications at Time of Discharge acetaminophen (TYLENOL EXTRA STRENGTH) 500 mg tablet Take 2 tablets (1,000 mg total) by mouth every 6 (six) hours as needed for headaches. 05/20/2025 loratadine (CLARITIN) 10 mg tablet Take 1 tablet (10 mg total) by mouth in the morning. 05/21/2025 metoprolol tartrate (LOPRESSOR) 50 mg tablet Take 1 tablet (50 mg total) by mouth in the morning and 1 tablet (50 mg total) before bedtime. 06/05/2024 propylene glycol (SYSTANE COMPLETE OPHT) Instill 1 drop to eye daily as needed. sennosides-docusa te sodium (SENOKOT-S) 8.6-50 mg Take 2 tablets by mouth nightly. 05/20/2025 levETIRAcetam (KEPPRA) 500 mg tablet Take 1 tablet (500 mg total) by mouth every 12 (twelve) hours for 3 days. 05/20/2025 05/23/2025 documented as of this encounter Progress Notes * Solomon Mccord RN - 05/20/2025 11:39 AM EDT Images from the original note were not included. FOLLOW-UP: Post-Intensive Care Rounding Note Patient: Mei Guardado : 1940 Age: 85 y.o. Length of Stay: 4 days Admission Diagnosis: ICH (intracerebral hemorrhage) ([facility]) [I61.9] Reviewing patient due to her recent transfer out from Intensive Care. Recorded vital signs are stable and the patient is not noted to be in any apparent distress. Telemetry and monitoring noted. Staff may call with any issues or concerns regarding her clinical presentation or stability. Thank you, Solomon Mccord RN Rapid Response: [facility] * ALIX Marks - 05/19/2025 11:58 AM EDT TRAUMA SURGERY - PROGRESS NOTE Patient: Mei Guardado Date of : 1940 AGE 85 y.o. SEX female Assessment / Plan This is a 85 y.o. female with Injuries/Traumatic issues: Traumatic fall - physical therapy and occupational therapy evaluations when able 2. Subarachnoid hemorrhage of the bilateral occipital lobes and right cerebellar hemisphere, right posterior scalp hematoma with underlying nondisplaced skull fracture, hemorrhagic contusion to the inferior portion of the anterior left frontal lobe with localized mass effect - consult neurosurgery - maintain elevated the head of the bed - systolic blood pressure goal less than 140 - Keppra load, continue x7days as prophylaxis - repeat CTH 05/17 stable - neuro checks - HOLD A/C 3. Right facial droop, questionable stroke - consult Neurology - blood pressure control - monitor vitals - neuro checks - MRI brain canceled, pt improving - stroke has signed off 4. Lactic acidosis, leukocytosis - lactate 6.2 at [facility] and WBC 20.2 - possible sepsis given leukocytosis, tachycardia, and lactic acidosis, however no identifiable source of infection at this time. Possible aspiration given CT chest results - daily labs, leukocytosis now resolved - lactate now normal - blood culture neg x2d and urine culture neg - Rocephin>Unasyn, will continue for 5 days in light of concern for aspiration, no culture done at time of initiation 5. Rhabdomyolysis (improving) - 354 at [facility] - repeat CK 1975, myoglobin at 967 - monitor UOP 6. Hypertension - Hx HTN on Metoprolol 25mg bid - 05/19 changed to Coreg 12.5mg bid for improved BP control - Hydralazine/Labetalol prn to keep SBP<140 Lines and Tubes: PIV Pain control: Multi modal Nutrition: Reg Prophylaxis: EPC, chem ppx Lovenox Last BM: prior to admission, on bowel reg Disposition: - Transfer to stepdown. PT/OT to eval. Monitor SBP. - PT/OT recommendation: pending - Discharge plan: pending, will need placement - Level of care to be continued: transfer to stepdown - Medically Ready for Discharge: Anticipated in 2-4 Days Medical Decision Making: High Subjective No acute events overnight. Herring removed this morning and cervical spine cleared by NS. Patient oriented x3. Denies CORBIN. Objective Vital signs: Vitals: 05/19/25 0900 05/19/25 1000 05/19/25 1100 05/19/25 1124 BP: 137/67 100/46 131/51 Pulse: 86 79 70 Resp: (!) Temp: 36.5 ??C (97.7 ??F) TempSrc: Oral SpO2: 93% 95% 97% Weight: Height: Temperature Range Last 24 Hours : Temp: 36.5 ??C (97.7 ??F) Temp Av.8 ??C (98.2 ??F) Min: 36.5??C (97.7 ??F) Max: 37 ??C (98.6 ??F) Admit Weight: 73.3 kg (161 lb 9.6 oz) Body mass index is 27.15 kg/m??. Last Weights: Wt Readings from Last 3 Encounters: 05/19/25 76.3 kg (168 lb 3.4 oz) I/O's: Intake/Output Summary (Last 24 hours) at 05/19/2025 1158 Last data filed at 05/19/2025 0500 Gross per 24 hour Intake -- Output 565 ml Net -565 ml Physical Exam Physical Exam Vitals and nursing note reviewed. Constitutional: General: She is not in acute distress. Appearance: She is not diaphoretic. HENT: Head: Contusion present. Cardiovascular: Rate and Rhythm: Normal rate and regular rhythm. Heart sounds: Normal heart sounds. Pulmonary: Effort: Pulmonary effort is normal. No respiratory distress. Breath sounds: Normal breath sounds. Abdominal: General: Bowel sounds are normal. There is no distension. Palpations: Abdomen is soft. Tenderness: There is no abdominal tenderness. There is no guarding. Skin: General: Skin is warm and dry. Capillary Refill: Capillary refill takes less than 2 seconds. Neurological: Mental Status: She is alert and oriented to person, place, and time. Comments: Oriented, but slightly confused Labs Results from last 7 days Lab Units 05/19/25 0324 05/18/25 0321 05/17/25 0433 05/16/25 2244 WBC x10E9/L 9.9 10.8 14.4* 16.3* HEMOGLOBIN g/dL 10.3* 10.2* 11.1* 12.4 HEMATOCRIT % 30.8* 30.7* 33.3* 37.2 PLATELETS X10E9/L 122* 109* 135* 155 Results from last 7 days Lab Units 05/19/25 1021 05/19/25 0324 05/18/25 0321 05/17/25 0311 05/17/25 0120 05/16/25 2243 SODIUM mmol/L -- 143 144 142 -- 141 POTASSIUM mmol/L 4.2 3.6 3.8 4.0 -- 3.8 CO2 mmol/L -- 19* 22 23 -- 23 BUN mg/dL -- 15 12 14 -- 15 CREATININE mg/dL -- 0.49 0.49 0.67 -- 0.65 BEDSIDE GLUCOSE mg/dL -- -- -- -- 200* -- GLUCOSE mg/dL -- 105* 110* 146* -- 158* Results from last 7 days Lab Units 05/16/25 2243 INR 1.0 PROTIME sec 11.4 APTT sec 24* Imaging No results found. Allergies No Known Allergies Current Medications SCHEDULED ampicillin-sulbactam (UNASYN) IV, 3,000 mg, intravenous, Q6H carvediloL, 12.5 mg, oral, BID enoxaparin (LOVENOX) injection, 30 mg, subcutaneous, Q12H levETIRAcetam, 500 mg, intravenous, Q12H SHANTELLE OR levETIRAcetam, 500 mg, oral, Q12H SHANTELLE sennosides-docusate sodium, 2 tablet, oral, Nightly sodium chloride, 3 mL, intravenous, Q12H SHANTELLE PRN acetaminophen calcium gluconate OR calcium gluconate OR calcium gluconate dextrose dextrose 5 % in water dextrose 50 % in water (D50W) glucagon (human recombinant) hydrALAZINE labetalol magnesium sulfate OR magnesium sulfate ondansetron polyethylene glycol potassium chloride OR potassium chloride potassium chloride in water OR potassium chloride in water sodium phosphate IV OR sodium phosphate IV - central line OR sod phos di, mono-K phos mono sodium chloride Current Infusions dextrose 5 % in water, 100 mL/hr Trauma Services Pager: [phone] ALIX Marks 05/19/25 1203 * ALIX Jensen - 05/18/2025 12:06 PM EDT TRAUMA SURGERY - PROGRESS NOTE Patient: Mei Guardado Date of : 1940 AGE 85 y.o. SEX female Assessment / Plan Mei Guardado 85 y.o. female Mechanism: Presumed fall Tertiary Examination: Tertiary examination, completed 05/18: Pt palpated from clavicles to fingertips and hips to feet bilaterally, no additional areas of pain were noted to indicate missed injury. Injuries/Traumatic issues: Traumatic fall - physical therapy and occupational therapy evaluations when able 2. Subarachnoid hemorrhage of the bilateral occipital lobes and right cerebellar hemisphere, right posterior scalp hematoma with underlying nondisplaced skull fracture, hemorrhagic contusion to the inferior portion of the anterior left frontal lobe with localized mass effect - consult neurosurgery - maintain elevated the head of the bed - systolic blood pressure goal less than 140 - Keppra load, continue x7days as prophylaxis - repeat CTH 05/17 stable - neuro checks 3. Right facial droop, questionable stroke - consult Neurology - blood pressure control - monitor vitals - neuro checks - MRI brain canceled, pt improving - stroke has signed off 4. Lactic acidosis, leukocytosis - lactate 6.2 at [facility] - WBC 20.2 - possible sepsis given leukocytosis, tachycardia, and lactic acidosis, however no identifiable source of infection at this time. Possible aspiration given CT chest results - daily labs, leukocytosis now resolved - lactate now normal - blood culture and urine culture ordered - Rocephin>Unasyn, will continue for 5 days in light of concern for aspiration, no culture done at time of initiation 5. Rhabdomyolysis (improving) - 354 at [facility] - repeat CK this morning at 1976, myoglobin at 967 - monitor UOP - dopplers ordered as patient down for poss more than 8 hours Comorbidities/Medical issues: Neuro- Pulm- Cardio- GI- - Heme- ID- MSK- Endo- Lytes- Lines and Tubes: Peripheral IVs Pain control: Multimodal Nutrition: NPO now, consider repeat speech evaluation today as pt much more awake Prophylaxis: EPC cuffs, lovenox Last BM: prior to admission Disposition: - PT/OT recommendation: pending - Discharge plan: pending - Barriers to discharge: therapy evaluation - Level of care to be continued:stepdown Medical Decision Making: High Medically Ready for Discharge: Anticipated in 2-4 Days Subjective Mentation significantly improved. Now awake and following commands. Hungry. Denies pain. Objective Vital signs: Vitals: 05/18/25 0900 05/18/25 0906 05/18/25 0916 05/18/25 1000 BP: 145/70 145/70 137/55 138/47 Pulse: 68 72 66 73 Resp: 23 23 24 23 Temp: TempSrc: SpO2: 94% 94% 95% 94% Weight: Height: Temperature Range Last 24 Hours : Temp: 36.7 ??C (98 ??F) Temp Av.8 ??C (98.3 ??F) Min: 36.7 ??C (98 ??F) Max: 37 ??C (98.6 ??F) Admit Weight: 73.3 kg (161 lb 9.6 oz) Body mass index is 26.08 kg/m??. Last Weights: Wt Readings from Last 3 Encounters: 05/18/25 73.3 kg (161 lb 9.6 oz) I/O's: Intake/Output Summary (Last 24 hours) at 05/18/2025 1206 Last data filed at 05/18/2025 0800 Gross per 24 hour Intake -- Output 683 ml Net -683 ml Physical Exam Physical Exam HEENT: Atraumatic, cervical collar in place EOMI PERRL 3mm, CN II-XII: grossly intact No Malocclusion Lungs:Good air movement B, CTA B, No Ronchi, No Wheeze No Chest wall tenderness, No Crepitus Unlabored, Room Air Heart: Heart tones present, No Murmur noted, Regular Abd: Soft, No guarding, No rigidity Non Tender RUQ / LUQ / RLQ / LLQ Extremities: RUE: 4/5 strength LUE: 4/5 strength RLE: 4/5 strength LLE: 4/5 strength Pulses 2+ x 4 Intact to light touch No calf/thigh tenderness Neuro: Alert, pleasant, Oriented to person, states she is in a bed but unable to tell me where the bed is - no distress Labs Results from last 7 days Lab Units 05/18/25 0321 05/17/25 0433 05/16/25 2244 WBC x10E9/L 10.8 14.4* 16.3* HEMOGLOBIN g/dL 10.2* 11.1* 12.4 HEMATOCRIT % 30.7* 33.3* 37.2 PLATELETS X10E9/L 109* 135* 155 Results from last 7 days Lab Units 05/18/25 0321 05/17/25 0311 05/17/25 0120 05/16/25 2243 SODIUM mmol/L 144 142 -- 141 POTASSIUM mmol/L 3.8 4.0 -- 3.8 CO2 mmol/L 22 23 -- 23 BUN mg/dL 12 14 -- 15 CREATININE mg/dL 0.49 0.67 -- 0.65 BEDSIDE GLUCOSE mg/dL -- -- 200* -- GLUCOSE mg/dL 110* 146* -- 158* Results from last 7 days Lab Units 05/16/25 2243 INR 1.0 PROTIME sec 11.4 APTT sec 24* Labs obtained during the last 24 hrs. independently reviewed. Recent Studies No results found. Radiographic studies obtained during the last 24 hrs independently reviewed for acute traumatic injuries. Allergies No Known Allergies Current Medications SCHEDULED ampicillin-sulbactam (UNASYN) IV, 3,000 mg, intravenous, Q6H levETIRAcetam, 500 mg, intravenous, Q12H SHANTELLE OR levETIRAcetam, 500 mg, oral, Q12H SHANTELLE metoprolol tartrate, 50 mg, oral, BID pantoprazole, 40 mg, intravenous, QAM AC sennosides-docusate sodium, 2 tablet, oral, Nightly sodium chloride, 3 mL, intravenous, Q12H SHANTELLE PRN calcium gluconate OR calcium gluconate OR calcium gluconate dextrose dextrose 5 % in water dextrose 50 % in water (D50W) glucagon (human recombinant) hydrALAZINE labetalol magnesium sulfate OR magnesium sulfate ondansetron polyethylene glycol potassium chloride OR potassium chloride potassium chloride in water OR potassium chloride in water sodium phosphate IV OR sodium phosphate IV - central line OR sod phos di, mono-K phos mono sodium chloride Current Infusions dextrose 5 % in water, 100 mL/hr ALIX JENSEN 05/18/25 12:06 PM Trauma can be reached via Patient Touch Pager: [phone] ALIX Jensen 05/18/25 1422 * Judson Whitney MD - 05/17/2025 11:54 AM EDT Daily neurovascular progress note: 05/17/25 Day 1 Problem List: Principal Problem: ICH (intracerebral hemorrhage) ([facility]) Identifying statement / history of present illness: Mei Guardado is a 85 y.o. female who presented after for whom vascular neurology was consulted formultifocal cerebral hemorrhages. She initially presented to [facility] after she was found down yesterday in her bathtub withan unknown downtime. CT of the brain revealed multifocal subarachnoid hemorrhages notably within the bilateral temporal lobes in the bilateral cerebellum. It also revealed There was also an intraparenchymal hemorrhage noted within the left frontal lobe with surrounding edema. CT angiography was unremarkable. Given her unknown circumstances, the vascular Neurology Service was consulted to assess if a cerebrovascular event preceded her fall. Upon evaluation, she is present at bedside with her daughter. She appears to be resting peacefully with her eyes closed, but does not respond or follow commands. Cranial nerves tested were intact andshe briskly withdraws all 4 extremities to noxious stimuli. Her daughter stated that the patient was talking to her family yesterday over the phone, and she was reportedly normal at that time. Update provider by family patient reportedly hit her head on the edge of the counter in her kitchenand fell to the ground. She has a past medical history significant for hypertension, JEREMY, hyperlipidemia, and possible seizure-like activity per chart review. Premorbid mRS: Unknown, patient unresponsive LKW: Unknown, found down in her tub after an unknown downtime. Possibly on 05/15/2025 NIHSS: 20 Subjective / interval events: Patient was seen and examined at bedside this morning. No acute events reported overnight. Not following commands but moving all 4 extremities antigravity. Current Medications: Scheduled: cefTRIAXone (ROCEPHIN) IV, 1,000 mg, intravenous, Q24H levETIRAcetam, 500 mg, intravenous, Q12H SHANTELLE OR levETIRAcetam, 500 mg, oral, Q12H SHANTELLE pantoprazole, 40 mg, intravenous, QAM AC sennosides-docusate sodium, 2 tablet, oral, Nightly sodium chloride, 3 mL, intravenous, Q12H SHANTELLE Infusions: dextrose 5 % in water, 100 mL/hr sodium chloride 0.9 %, 10 mL/hr sodium chloride 0.9 %, 10 mL/hr sodium chloride 0.9 %, 10 mL/hr sodium chloride 0.9 %, 100 mL/hr, Last Rate: 100 mL/hr (05/17/25 0134) As Needed: acetaminophen OR acetaminophen OR acetaminophen calcium gluconate OR calcium gluconate OR calcium gluconate dextrose dextrose 5 % in water dextrose 50 % in water (D50W) glucagon (human recombinant) hydrALAZINE labetalol magnesium sulfate OR magnesium sulfate ondansetron polyethylene glycol potassium chloride OR potassium chloride potassium chloride in water OR potassium chloride in water sodium phosphate IV OR sodium phosphate IV - central line OR sod phos di, mono-K phos mono sodium chloride sodium chloride 0.9 % sodium chloride 0.9 % sodium chloride 0.9 % BP 138/61 Pulse 76 Temp 37.1 ??C (98.7 ??F) (Oral) Resp 19 Ht 167.6 cm (5' 6 ) Wt 73.3 kg(161 lb 9.6 oz) SpO2 92% BMI 26.08 kg/m?? O2 Device: None (Room air) NIHSS 1a Level of consciousness: 1=not alert but arousable by minor stimulation to obey, answer or respond 1b. LOC questions: 2=Performs neither task correctly 1c. LOC commands: 2=Performs neither task correctly 2. Best Gaze: 0=normal 3. Visual: 0=No visual loss 4. Facial Palsy: 0=Normal symmetric movement 5a. Motor left arm: 2=Some effort against gravity, limb cannot get to or maintain (if cured) 90 (or45) degrees, drifts down to bed, but has some effort against gravity 5b. Motor right arm: 2=Some effort against gravity, limb cannot get to or maintain (if cured) 90 (or 45) degrees, drifts down to bed, but has some effort against gravity 6a. motor left le=Some effort against gravity, limb cannot get to or maintain (if cured) 90 (or45) degrees, drifts down to bed, but has some effort against gravity 6b Motor right le=Some effort against gravity, limb cannot get to or maintain (if cured) 90 (or45) degrees, drifts down to bed, but has some effort against gravity 7. Limb Ataxia: 0=Absent 8. Sensory: 0=Normal; no sensory loss 9. Best Language: 3=Mute, global aphasia; no usable speech or auditory comprehension 10. Dysarthria: 0=Normal 11. Extinction and Inattention: 0=No abnormality Total: 16 Labs/Imaging: Objective Lab work/Imaging: Recent Results (from the past 24 hours) Protime & INR Collection Time: 05/16/25 10:43 PM Result Value Ref Range PROTIME 11.4 9.8 - 13.2 sec INR 1.0 0.9 - 1.2 APTT Collection Time: 05/16/25 10:43 PM Result Value Ref Range APTT 24 (L) 26 - 37 sec Ethanol Collection Time: 05/16/25 10:43 PM Result Value Ref Range ETHANOL <0.010 <=0.080 g/dL Amylase Collection Time: 05/16/25 10:43 PM Result Value Ref Range AMYLASE 54 28 - 100 U/L Comprehensive metabolic panel Collection Time: 05/16/25 10:43 PM Result Value Ref Range SODIUM 141 134 - 146 mmol/L POTASSIUM 3.8 3.5 - 5.0 mmol/L CHLORIDE 107 98 - 109 mmol/L CARBON DIOXIDE 23 22 - 32 mmol/L ANION GAP 11 5 - 15 mmol/L BLOOD UREA NITROGEN 15 5 - 27 mg/dL CREATININE 0.65 0.40 - 1.00 mg/dL GLUCOSE 158 (H) 65 - 99 mg/dL CALCIUM 8.4 (L) 8.5 - 10.5 mg/dL TOTAL PROTEIN 6.1 6.0 - 8.0 g/dL ALBUMIN 3.6 3.2 - 5.3 g/dL ALKALINE PHOSPHATASE 102 39 - 130 U/L AST 32 <=41 U/L ALT 11 <=31 U/L BILIRUBIN,TOTAL 0.4 0.3 - 1.2 mg/dL EGFR Non-Race Dependent 85 >=60 ml/min/1.73sq.m Fibrinogen Collection Time: 05/16/25 10:43 PM Result Value Ref Range FIBRINOGEN 358 190 - 480 mg/dL Lipase Collection Time: 05/16/25 10:43 PM Result Value Ref Range LIPASE <3 (L) 11 - 82 U/L CK Total Collection Time: 05/16/25 10:43 PM Result Value Ref Range CPK 1,293 (H) 24 - 170 U/L Myoglobin, serum Collection Time: 05/16/25 10:43 PM Result Value Ref Range SERUM MYOGLOBIN 1,106.1 (H) 14.3 - 65.8 ng/mL Magnesium Collection Time: 05/16/25 10:43 PM Result Value Ref Range MAGNESIUM 1.7 (L) 1.8 - 2.6 mg/dL Phosphorus Collection Time: 05/16/25 10:43 PM Result Value Ref Range PHOSPHORUS 2.8 2.4 - 4.9 mg/dL Type and screen(includes indirect ellyn) Collection Time: 05/16/25 10:44 PM Result Value Ref Range ABO O RH Positive Antibody Screen Negative CBC auto differential Collection Time: 05/16/25 10:44 PM Result Value Ref Range WBC 16.3 (H) 4 - 11 x10E9/L RBC Count 4.08 3.8 - 5.2 X10E12/L Hemoglobin 12.4 11.7 - 15.5 g/dL Hematocrit 37.2 35 - 47 % MCV 91 80 - 100 fL MCH 30.5 27 - 34 pg MCHC 33.4 32 - 36 g/dL RDW 14.3 11.5 - 15 % Platelet Count 155 150 - 450 X10E9/L MPV 9.8 7 - 12 fL Neutrophils % 91.3 % Lymphocytes % 3.3 % Monocytes % 5.2 % Eosinophils % 0.0 % Basophils % 0.2 % Neutrophils Absolute (A) 14.9 (H) 1.5 - 6.6 10*3/uL Lymphocytes Absolute 0.5 (L) 1.0 - 3.5 10*3/uL Monocytes Absolute 0.9 0.0 - 0.9 10*3/uL Eosinophils Absolute 0.0 0.0 - 0.4 10*3/uL Basophils Absolute 0.0 0.0 - 0.2 10*3/uL Differential Type AUTOMATED DIFFERENTIAL Thatcher draw Collection Time: 05/16/25 10:44 PM Narrative The following orders were created for panel order Thatcher draw. Procedure Abnormality Status --------- ------ Patel Top On Ice[[id number]] Final result Please view results for these tests on the individual orders. Patel Top On Ice Collection Time: 05/16/25 10:44 PM Result Value Ref Range Extra Tube Auto Resulted Lactate w/ Reflex Collection Time: 05/16/25 10:44 PM Result Value Ref Range LACTATE W/REFLEX 2.0 0.4 - 2.0 mmol/L Narrative Result did not trigger repeat Lactate, re-order if needed. Drug Screen, Urine Collection Time: 05/16/25 10:47 PM Specimen: Urine Result Value Ref Range AMPHETAMINE/METHAMP Negative Negative COCAINE METABOLITE Negative Negative ECSTASY Negative Negative METHADONE Negative Negative OPIATES Negative Negative OXYCODONE Negative Negative PHENCYCLIDINE Negative Negative CANNABINOIDS Negative Negative Urine Barbiturates Negative Negative BENZODIAZEPINES Negative Negative Urinalysis Collection Time: 05/16/25 10:47 PM Specimen: Urine Result Value Ref Range COLOR Yellow Yellow TURBIDITY Clear Clear SPECIFIC GRAVITY 1.010 1.003 - 1.035 NITRITE Negative Negative PH,URINE 6.0 5.0 - 8.5 LEUKOCYTE ESTERASE Negative Negative PROTEIN 30 mg/dL (A) Negative KETONES (URINE) 40 mg/dL (A) Negative UROBILINOGEN <1.1 eu/dL <1.1 eu/dL BILIRUBIN (URINE) Negative Negative BLOOD/HGB Moderate (A) Negative MUCOUS Present (A) None R.B.CELLS 6 (H) 0 - 5 SQUAMOUS EPITHELIUM <1 0 - 5 W.B.CELLS 3 0 - 5 GLUCOSE (URINE) Negative Negative ABO Rh Repeat Collection Time: 05/16/25 11:04 PM Result Value Ref Range ABO O RH Positive Bedside Glucose *Place/Obtain serum glucose if >500 per glucometer. Collection Time: 05/17/25 1:20 AM Result Value Ref Range Bedside Glucose (POC) 200 (H) 65 - 99 mg/dL Basic Metabolic Panel Collection Time: 05/17/25 3:11 AM Result Value Ref Range SODIUM 142 134 - 146 mmol/L POTASSIUM 4.0 3.5 - 5.0 mmol/L CHLORIDE 111 (H) 98 - 109 mmol/L CARBON DIOXIDE 23 22 - 32 mmol/L ANION GAP 8 5 - 15 mmol/L BLOOD UREA NITROGEN 14 5 - 27 mg/dL CREATININE 0.67 0.40 - 1.00 mg/dL GLUCOSE 146 (H) 65 - 99 mg/dL CALCIUM 8.0 (L) 8.5 - 10.5 mg/dL EGFR Non-Race Dependent 85 >=60 ml/min/1.73sq.m CBC auto differential Collection Time: 05/17/25 4:33 AM Result Value Ref Range WBC 14.4 (H) 4 - 11 x10E9/L RBC Count 3.66 (L) 3.8 - 5.2 X10E12/L Hemoglobin 11.1 (L) 11.7 - 15.5 g/dL Hematocrit 33.3 (L) 35 - 47 % MCV 91 80 - 100 fL MCH 30.2 27 - 34 pg MCHC 33.2 32 - 36 g/dL RDW 14.5 11.5 - 15 % Platelet Count 135 (L) 150 - 450 X10E9/L MPV 9.6 7 - 12 fL Neutrophils % 87.4 % Lymphocytes % 6.1 % Monocytes % 6.3 % Eosinophils % 0.0 % Basophils % 0.2 % Neutrophils Absolute (A) 12.6 (H) 1.5 - 6.6 10*3/uL Lymphocytes Absolute 0.9 (L) 1.0 - 3.5 10*3/uL Monocytes Absolute 0.9 0.0 - 0.9 10*3/uL Eosinophils Absolute 0.0 0.0 - 0.4 10*3/uL Basophils Absolute 0.0 0.0 - 0.2 10*3/uL Differential Type AUTOMATED DIFFERENTIAL Ionized magnesium Collection Time: 05/17/25 8:54 AM Result Value Ref Range IONIZED MAGNESIUM 0.78 (H) 0.45 - 0.74 mmol/L CK Total Collection Time: 05/17/25 8:54 AM Result Value Ref Range CPK 1,976 (H) 24 - 170 U/L Myoglobin, serum Collection Time: 05/17/25 8:54 AM Result Value Ref Range SERUM MYOGLOBIN 967.7 (H) 14.3 - 65.8 ng/mL Imaging: CT brain without contrast Result Date: 05/17/2025 History: SDH, SAH Exam/Technique: CT images of the brain were obtained without IV contrast. CT doesautomated exposure control was utilized. All CT scans at this facility use dose modulation, iterative reconstruction, and/or weight based dosing when appropriate to reduce radiation dose to as low asreasonably achievable. Comparison: Head CT 05/16/2025 Findings: The left frontal lobe vasogenic edema and multiple parenchymal hemorrhagic changes are grossly stable compared to prior exam. There are multiple stable subarachnoid hemorrhagic changes along the left more than right right temporal lobes, both occipital lobes and right cerebellar hemisphere. There are small parenchymal contusion changes at the inferior aspect of the right frontal lobe. There is small subdural hematoma primarily alongthe left tentorium. There is grossly stable 2 mm right subfalcine shift with no gross transtentorial herniation. There is nondisplaced right occipital bone fracture. IMPRESSION: Grossly stable multiple multiple compartments hemorrhagic changes bilaterally at both supratentorial and infratentorial structures. Right occipital bone fracture is grossly stable. Stable 2 mm right subfalcine shift with no gross transtentorial herniation Finalized by Pako Estevez MD on 51:54 AM Imaging: CT of the brain without contrast: Multifocal subarachnoid hemorrhage primarily within the bilateraltemporal lobes and bilateral cerebellum. Left frontal intraparenchymal hemorrhage with surrounding edema. Assessment: Mei Guardado is a 85 y.o. female who presents with symptoms of unresponsiveness and fall. Their risk factors include hypertension, hyperlipidemia, obstructive sleep apnea. and currently taking nothing. Their initial exam is significant for he is stuporous mental status, but no other clear focal abnormalities. The initial CT brain without contrast demonstrated multifocal subarachnoid and left frontal intraparenchymal hemorrhage. Vessel imaging reveals no acute abnormalities. Perfusion imaging was not obtained. MRI brain without contrast is pending. Impression: Symptoms of altered mental status likely due to multifocal brain hemorrhages secondary to trauma Her decreased mentation his likely due to concussive head injury Patient Active Problem List Diagnosis ICH (intracerebral hemorrhage) ([facility]) Plan: We will continue to monitor clinically Vascular Neurology will continue to follow Judson Whitney MD PGY-2 Neurology [facility] This patient is being followed by the Neurology Resident service. Contact attending directly during these hours: Monday to 7:30-8:30 A.M. to Monday 12-1:00 p.m. Primary Neurology service: [phone] Consult neurology service: [phone] Resident Stroke Service: [phone] If the patient belongs to the Stroke ANA service please contact the Stroke ANA directly Cosigned by Judson Landrum MD at 05/20/2025 9:48 AM EDT Associated attestation - Judson Landrum MD - 05/20/2025 9:48 AM EDT I saw the patient. I participated and was physically present during the iyer portions of the service. I was directly involved in the management and treatment plan of the patient. I have reviewed the resident???s note. * Kamilah Tilley PA-C - 05/17/2025 5:54 AM EDT TRAUMA SURGERY - PROGRESS NOTE Patient: Mei Guardado Date of : 1940 AGE 85 y.o. SEX female Assessment / Plan This is a 85 y.o. female with Injuries/Traumatic issues: Traumatic fall - physical therapy and occupational therapy evaluations when able 2. Subarachnoid hemorrhage of the bilateral occipital lobes and right cerebellar hemisphere, right posterior scalp hematoma with underlying nondisplaced skull fracture, hemorrhagic contusion to the inferior portion of the anterior left frontal lobe with localized mass effect - consult neurosurgery - maintain elevated the head of the bed - systolic blood pressure goal less than 140 - Keppra load - neuro checks 3. Right facial droop, questionable stroke - consult Neurology - blood pressure control - monitor vitals - neuro checks - MRI brain canceled 4. Lactic acidosis, leukocytosis - lactate 6.2 at [facility] - WBC 20.2 - possible sepsis given leukocytosis, tachycardia, and lactic acidosis, however no identifiable source of infection at this time. Possible aspiration given CT chest results - daily labs - trend lactate, normal here at 2 - IV fluids - blood culture and urine culture ordered - Rocephin 5. Rhabdomyolysis - 354 at [facility] - repeat CK this morning at 1976, myoglobin at 967 - monitor UOP - NS @100 - dopplers ordered as patient down for poss more than 8 hours Comorbidities/Medical issues: Neuro- Pulm- Cardio- GI- - Heme- ID- MSK- Endo- Lytes- Lines and Tubes: Peripheral IVs Pain control: Multimodal Nutrition: NPO now Prophylaxis: EPC cuffs, hold anticoagulation secondary to increased risk of bleeding Disposition: - PT/OT recommendation: pending - Discharge plan: pending - Barriers to discharge: mentation - Level of care to be continued: neuro icu Medical Decision Making: High Subjective Patient resting in bed. Patient is non-verbal at this time. She moves BLE spontaneously and followscommands in BUE. She will look at you when speaking but unable to verbalize. Stepdaughter at beside. No current questions or concerns. Objective Vital signs: Vitals: 05/17/25 1300 05/17/25 1400 05/17/25 1500 05/17/25 1600 BP: 147/60 148/53 131/56 141/63 Pulse: 85 82 82 82 Resp: Temp: 36.9 ??C (98.5 ??F) TempSrc: Axillary SpO2: 92% 92% 92% 91% Weight: Height: Temperature Range Last 24 Hours : Temp: 36.9 ??C (98.5 ??F) Temp Av.2 ??C (98.9 ??F) Min: 36.6??C (97.8 ??F) Max: 37.7 ??C (99.9 ??F) Admit Weight: 73.3 kg (161 lb 9.6 oz) Body mass index is 26.08 kg/m??. Last Weights: Wt Readings from Last 3 Encounters: 05/17/25 73.3 kg (161 lb 9.6 oz) I/O's: Intake/Output Summary (Last 24 hours) at 05/17/2025 1639 Last data filed at 05/17/2025 1600 Gross per 24 hour Intake 96.55 ml Output 650 ml Net -553.45 ml Physical Exam Physical Exam Vitals reviewed. Constitutional: General: She is awake. She is not in acute distress. Interventions: Cervical collar in place. HENT: Head: Normocephalic and atraumatic. Comments: R sided facial droop Neck: Trachea: Trachea normal. Cardiovascular: Rate and Rhythm: Normal rate and regular rhythm. Pulses: Radial pulses are 2+ on the right side and 2+ on the left side. Heart sounds: No murmur heard. Pulmonary: Effort: Pulmonary effort is normal. Breath sounds: Normal breath sounds. Abdominal: General: There is no distension. Palpations: Abdomen is soft. Tenderness: There is no abdominal tenderness. Musculoskeletal: Comments: No obvious deformities Skin: General: Skin is warm. Capillary Refill: Capillary refill takes less than 2 seconds. Neurological: General: No focal deficit present. Mental Status: She is alert. She is disoriented and confused. 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 Moves all 4 extremities spontanouesly Opens eyes to verbal Track to verbal stimuli Labs Results from last 7 days Lab Units 05/17/25 0433 05/16/25 2244 WBC x10E9/L 14.4* 16.3* HEMOGLOBIN g/dL 11.1* 12.4 HEMATOCRIT % 33.3* 37.2 PLATELETS X10E9/L 135* 155 Results from last 7 days Lab Units 05/17/25 0311 05/17/25 0120 05/16/25 2243 SODIUM mmol/L 142 -- 141 POTASSIUM mmol/L 4.0 -- 3.8 CO2 mmol/L 23 -- 23 BUN mg/dL 14 -- 15 CREATININE mg/dL 0.67 -- 0.65 BEDSIDE GLUCOSE mg/dL -- 200* -- GLUCOSE mg/dL 146* -- 158* Results from last 7 days Lab Units 05/16/25 2243 INR 1.0 PROTIME sec 11.4 APTT sec 24* Recent Studies CT brain without contrast Result Date: 05/17/2025 History: SDH, SAH Exam/Technique: CT images of the brain were obtained without IV contrast. CT doesautomated exposure control was utilized. All CT scans at this facility use dose modulation, iterative reconstruction, and/or weight based dosing when appropriate to reduce radiation dose to as low asreasonably achievable. Comparison: Head CT 05/16/2025 Findings: The left frontal lobe vasogenic edema and multiple parenchymal hemorrhagic changes are grossly stable compared to prior exam. There are multiple stable subarachnoid hemorrhagic changes along the left more than right right temporal lobes, both occipital lobes and right cerebellar hemisphere. There are small parenchymal contusion changes at the inferior aspect of the right frontal lobe. There is small subdural hematoma primarily alongthe left tentorium. There is grossly stable 2 mm right subfalcine shift with no gross transtentorial herniation. There is nondisplaced right occipital bone fracture. IMPRESSION: Grossly stable multiple multiple compartments hemorrhagic changes bilaterally at both supratentorial and infratentorial structures. Right occipital bone fracture is grossly stable. Stable 2 mm right subfalcine shift with no gross transtentorial herniation Finalized by Pako Estevez MD on 51:54 AM Allergies No Known Allergies Current Medications SCHEDULED cefTRIAXone (ROCEPHIN) IV, 1,000 mg, intravenous, Q24H levETIRAcetam, 500 mg, intravenous, Q12H SHANTELLE OR levETIRAcetam, 500 mg, oral, Q12H SHANTELLE pantoprazole, 40 mg, intravenous, QAM AC sennosides-docusate sodium, 2 tablet, oral, Nightly sodium chloride, 3 mL, intravenous, Q12H SHANTELLE PRN acetaminophen OR acetaminophen OR acetaminophen calcium gluconate OR calcium gluconate OR calcium gluconate dextrose dextrose 5 % in water dextrose 50 % in water (D50W) glucagon (human recombinant) hydrALAZINE labetalol magnesium sulfate OR magnesium sulfate ondansetron polyethylene glycol potassium chloride OR potassium chloride potassium chloride in water OR potassium chloride in water sodium phosphate IV OR sodium phosphate IV - central line OR sod phos di, mono-K phos mono sodium chloride sodium chloride 0.9 % sodium chloride 0.9 % sodium chloride 0.9 % Current Infusions dextrose 5 % in water, 100 mL/hr sodium chloride 0.9 %, 10 mL/hr sodium chloride 0.9 %, 10 mL/hr sodium chloride 0.9 %, 10 mL/hr sodium chloride 0.9 %, 100 mL/hr, Last Rate: 100 mL/hr (05/17/25 0134) KAMILAH TILLEY PA-C Trauma Services Pager: [phone] 05/17/25 4:39 PM Please note that portions of this note were generated using voice recognition [employer] dictation software. Although every effort was made to ensure the accuracy of this automated gsa coordinator, some errors in gsa coordinator may have occurred. Kamilah Tilley PA-C 05/17/25 1639 Kamilah Tilley PA-C 05/17/25 1640 documented in this encounter H&P Notes * Edgardo Ye DO - 05/16/2025 10:56 PM EDT Images from the original note were not included. Trauma Surgery History & Physical Examination /Consultation Note Patient: Mei Guardado Date of : 1940 Estimated time of injury: Unknown, last point of contact was morning of 05/15/25, found down around 16:00 today LOC: Yes Transport: EMS from [facility] Trauma level: Trauma Consult Work related: No History of Present Illness Mei Guardado is an 85 y.o. White or female with unknown past medical history, transferred from [facility] for trauma consult after being found unresponsive at home in her bathtub after a fall. Unknown time down. Last known contact with patient was the morning of 05/15/2025, when she was acting her normal baseline. At baseline, patient is A&O x4 and conversive. Workup at [facility] is notable for CT brain revealing skull fracture, multifocal subarachnoid hemorrhages within the bilateral temporal lobes and in the bilateral cerebellum. There was also an intraparenchymal hemorrhage within the left frontal lobe with surrounding edema. Additionally patient had an elevated lactate. Patient was given 2 g Rocephin, 1 g vancomycin, and 1 L of fluids at [facility]. Hemoglobin at that time was 13. Per EMS, vital signs were stable during transport. Presently, patient is nonverbal and does not follow commands. Limited history is obtained from step daughter at bedside. Reportedly, there was also blood found in the patient's kitchen as well as the bathtub. Patient typically lives at home alone and is independent at baseline. Patient has a signed DNR CCA, and discussion with step daughterat bedside confirms patient's wishes at this time. Past Medical History History reviewed. No pertinent past medical history. Trauma Past Surgical History No past surgical history on file. Travel Screening No screening recorded since 05/13/252216 Travel History Travel since 04/15/25 No documented travel since 04/15/25 amily Historyamily History Family History History reviewed. No pertinent family history. Review of Systems Review of Systems (Positive Findings in Bold) Const: Fever / Chills / Weight Loss / Recent falls Eyes: Blurry vision/ Vision Change HEENT: CORBIN / Neck Pain / Otorrhea / Rhinorrhea / Scalp bleed / Head injury RESP: SOB / Cough / Wheeze CARDIAC: CP / Palpitations / Edema GI: N / V / Abd Pain / Diarrhea / Constipation : Hematuria / Discharge MS: Weakness / Pain / Dec ROM Integ: Rashes / Poorly healing wounds Neuro: CORBIN / Gait imbalance / Increased confusion / Numbness / Tingling / Paralysis Psych: Depression / Anxiety / Hallucinations / Suicide Unable to assess because of Mentation Allergies No Known Allergies Home Meds Prior to Admission medications Not on File Immunizatons Immunization History Administered Date(s) Administered COVID-19, mRNA, LNP-S, PF, 100mcg/0.5mL Dose 10/27/2020, 11/24/2020, 07/29/2021, 12/23/2021 COVID-19, mRNA, LNP-S, PF, 30mcg/0.3mL Dose 06/13/2023 Covid-19, Mrna, Lnp-s, Bivalent, Pf, 50mcg/0.5ml or 25mcg/0.25ml 06/03/2022 Covid-19, Mrna, Lnp-s, Pf,marci-sucrose,30 Mcg/0.3ml Seasonal 06/02/2024 Last Tetanus: 05/16/25 Social History Social History Socioeconomic History Marital status: Single Spouse name: Not on file Number of children: Not on file Years of education: Not on file Highest education level: Not on file Occupational History Not on file Tobacco Use Smoking status: Not on file Smokeless tobacco: Not on file Substance and Sexual Activity Alcohol use: Not on file Drug use: Not on file Sexual activity: Not on file Other Topics Concern Not on file Social History Narrative Not on file Social Drivers of Health Financial Resource Strain: Not on file Food Insecurity: Patient Unable To Answer (05/16/2025) Hunger Screening Food Insecurity - Worry: Patient unable to answer Food Insecurity - Inability: Patient unable to answer Transportation Needs: Not on file Physical Activity: Not on file Stress: Not on file Social Connections: Not on file Interpersonal Safety: Not on file Housing Instability: Not on file Substance Use: ETOH: Unable to answer secondary to mentation status Tobacco Unable to answer secondary to mentation status Drugs Unable to answer secondary to mentation status Support: Lives alone Occupation: Retired NPO since: Unknown LMP: N/A Smoking cessation discussed: no Vitals Vital signs: Vitals: 05/16/25 2219 BP: 150/52 Pulse: 103 Resp: 24 Temp: 37.7 ??C (99.9 ??F) TempSrc: Axillary SpO2: 95% Temperature Range Last 24 Hours : Temp: 37.7 ??C (99.9 ??F) Temp Av.7 ??C (99.9 ??F) Min: 37.7??C (99.9 ??F) Max: 37.7 ??C (99.9 ??F) Admit Weight: There is no height or weight on file to calculate BMI. Last Weights: Wt Readings from Last 3 Encounters: No data found for Wt I/O's:No intake or output data in the 24 hours ending 05/16/25 2256 O2 Device: None (Room air) Last 24 hr Labs Recent Results (from the past 24 hours) Thatcher draw Collection Time: 05/16/25 10:44 PM Narrative The following orders were created for panel order Thatcher draw. Procedure Abnormality Status --------- ------ Patel Top On Ice[[id number]] Please view results for these tests on the individual orders. Cultures: Microbiology Results (last 21 days) Procedure Component Value - Date/Time Urine Culture Urine, Indwelling Catheter [[id number]] Lab Status: No result Specimen: Urine, Indwelling Catheter Radiology Results Bedside FAST exam results: Not preformed No results found. Physical Exam Physical Exam Airway: Intact Breathing: Intact Circulation: Intact GCS: 8 Eye: Verbal Motor 1 Does not open 1 No sounds 1 No movement 2 Opens to pain 2 Incomprehensible sounds 2 Extension w/pain 3 Opens to voice 3 Incoherent words 3 Flex w/ pain 4 Spontaneous 4 Confused / disoriented 4 Withdraw from pain 5 Oriented 6 Obeys commands General: Rightward lean, does not interact, c-collar placed HEENT: No identifiable scalp laceration though there is a moderate amount of dried blood in the posterior aspect of the scalp PERRL 4mm, No Malocclusion TM Clear bilaterally Battles sign Absent Nares patent Right sided facial droop Tolerating secretions Neck: Trachea Midline C Collar present Unable to assess for neck tenderness given patient's current mental status Chest: Unable to assess for chest wall tenderness, patient does not respond to palpation of chest, no obvious deformities noted, no crepitus, no ecchymosis Lungs: Breath sounds are shallow, unlabored, equal bilaterally without evidence of rhonchi wheezes or rales On room air Heart: Heart tones S1/S2, No Murmur noted Abd: Soft, Non distended, No guarding, No rigidity No ecchymosis Patient does not wince or withdrawal in pain during palpation of abdomen Pelvis: Iliac crest-stable Symphysis pubis- stable Penis / Scrotum / Peroneal: No wounds noted Rectum: Not performed Back: T Spine- no obvious step offs or deformities L Spine- no obvious step offs or deformities No wounds / ecchymosis Extremities: Patient does not follow commands, unable to assess strength or sensation of the extremities There are no obvious signs of deformity, swelling, redness, or ecchymosis of the extremities Pulses are 2+ throughout Neuro: Does not follow commands, does not interact, nonverbal Opens eyes to verbal stimuli Withdrawals from painful stimuli bilaterally Rightward lean Right sided facial droop Lack of protective blink reflex on initial exam Revised Trauma Score: 10 GCS SBP RespRate 4 15-13 4 >89 4 10-29 3 12-9 3 76-89 3 >29 2 8-6 2 50-75 2 6-9 1 5-4 1 1-49 1 1-5 0 3 0 0 0 0 CAGE-[facility] Monica [employer] Med Journal 1994 Have you felt the need to cut down on your drinking or drug use? not asked Do you feel annoyed by people complaining about your drinking or drug use? not asked Do you ever feel guilty about your drinking or drug use? not asked Have you ever had a drink or used drugs first thing in the morning to steady your nerves or to get rid of a hangover? not asked Scorin or more positive terms indicate the need for a brief intervention or social work consult. ASSESSMENT / PLAN Mei Guardado 85 y.o. female with unknown past medical history, transferred from [facility] for trauma consult after being found unresponsive at home in her bathtub after a fall. Unknown time down. Last known contact with patient was the morning of 05/15/2025, when she was acting her normal baseline. Injuries/Traumatic issues: Traumatic fall -TraumaGram - imaging obtained from [facility], results reviewed - CT chest: Bibasilar atelectasis/pneumonitis - CT head: Subarachnoid blood in occipital lobes bilaterally and right cerebellar hemisphere, rightposterior scalp hematoma with nondisplaced skull fracture - CTA head /neck: No occlusion or critical stenosis of the intracranial or extracranial circulation - CT abdomen and pelvis: No acute findings -TraumaLabs -CMP -CBC -Coags, PT/INR -Amylase -Lipase -Ethanol -Urine Drug screen -Urinalysis -Trauma Meds -Tetanus -Protonix - IV fluids - PT OT eval - MARKETING PROGRAMS MANAGER eval - monitor vitals - cardiac monitoring - multimodal pain control - supplemental oxygen as needed 2. Subarachnoid hemorrhage of the bilateral occipital lobes and right cerebellar hemisphere, right posterior scalp hematoma with underlying nondisplaced skull fracture, hemorrhagic contusion to the inferior portion of the anterior left frontal lobe with localized mass effect - consult neurosurgery - maintain elevated the head of the bed - systolic blood pressure goal less than 140 - Keppra load - neuro checks 3. Right facial droop, questionable stroke - consult Neurology - blood pressure control - monitor vitals - neuro checks 4. Lactic acidosis, leukocytosis - lactate 6.2 at [facility] - WBC 20.2 - possible sepsis given leukocytosis, tachycardia, and lactic acidosis, however no identifiable source of infection at this time. Possible aspiration given CT chest results - daily labs - trend lactate - IV fluids - started on Rocephin and vancomycin 5. Elevated creatinine kinase - 354 at [facility] - repeat CK, trend for possible rhabdo - continue IV fluids - monitor urine output - UA Comorbidities/Medical issues: Neuro- Pulm- Cardio- GI- - Heme- ID- MSK- Endo- Lytes- Lines and Tubes: Peripheral IVs Pain control: Multimodal Nutrition: NPO now Prophylaxis: EPC cuffs, hold anticoagulation secondary to increased risk of bleeding Disposition: Trauma admit to Neuro ICU CONSULTATIONS Consultations: Trauma directly consulted Neurosurgery and Neurology at approximately 23:00 Trauma Team Present: Saira CORRAL, Mynor CORRAL and Ephraim BARON Trauma Team Arrival time: 22:20 Attending: Dr. Wilfredo Moreau MD saw patient at 22:30 Time spent: 60 minutes Edgardo Ye DO PGY-1 Trauma Services 05/16/25 10:56 PM Cosigned by Wilfredo Moreau MD at 05/18/2025 7:17 AM EDT Associated attestation - Wilfredo Moreau MD - 05/18/2025 7:17 AM EDT Attending Attestation: I saw the patient. I participated and was physically present during the critical/iyer portions of the service. I was directly involved in the management and treatment plan of the patient. I reviewed the resident's note. Additional Notes/Findings: 85[facility] having been found down in her bathtub for an undetermined period of time. She was seen as a trauma consult. Injuries include subarachnoid hemorrhage of bilateral occipital lobes and right cerebellar hemisphere, contusion anterior left frontal lobe. Patient also found to have a facial droop with possible stroke. Neurosurgery and Neurology were consulted. Patient to be admitted to the neuro ICU documented in this encounter Consult Notes * TRACY Garcia - 05/17/2025 12:43 PM EDTAssociated Order(s): IP CONSULT TO NEUROSURGERY Images from the original note were not included. [facility] [address] [place] [address], [address] [place] [address] * NEUROSURGERY CONSULT NOTE DATE:05/17/2025 PATIENT'S NAME: Mei Guardado PATIENT'S PATIENT'S : 1940 NEUROSURGERY ATTENDING: Valdez REASON FOR CONSULT [facility] HISTORY OF PRESENT ILLNESS Mei Guardado is a 85 y.o. White or female who presented to [facility] after beingfound down in her bathtub. She had an unknown downtime. CT of the brain was done showig [facility]'s. Neurosurgery consulted for evaluation. ALLERGIES No Known Allergies MEDICATIONS Current Facility-Administered Medications: acetaminophen (TYLENOL EXTRA STRENGTH) tablet 500 mg, 500 mg, oral, Q6H PRN OR acetaminophen (TYLENOL) 650 mg/20.3 mL solution 500 mg, 500 mg, nasogastric, Q6H PRN OR acetaminophen (TYLENOL) suppository 650 mg, 650 mg, rectal, Q6H PRN, TRACY Grant calcium gluconate IVPB 1000 mg/50 mL (20 mg/mL premix), 1,000 mg, intravenous, PRN OR calcium gluconate IVPB 2000 mg/100 mL (20 mg/mL premix), 2,000 mg, intravenous, PRN OR calcium gluconate 3,000 mg in sodium chloride 0.9 % 100 mL IVPB, 3,000 mg, intravenous, PRN, Mary Lowe TRAVELING CONSTRUCTION SUPERINTENDENT-HOSPICE MASSAGE THERAPIST cefTRIAXone (ROCEPHIN) 1,000 mg in sodium chloride 0.9 % 50 mL IVPB W/ADAPTER, 1,000 mg, intravenous, Q24H, Salome Chávez APRN-SHAYNA dextrose (GLUTOSE) 40 % gel 15 g, 15 g, oral, PRN, Mary Lowe TRAVELING CONSTRUCTION SUPERINTENDENT-SHAYNA dextrose 5 % (D5W) infusion, 100 mL/hr, intravenous, Continuous PRN, Mary Lowe TRAVELING CONSTRUCTION SUPERINTENDENT-SHAYNA dextrose 50 % in water (D50W) 50% solution 25 mL, 25 mL, intravenous, PRN, Mary Lowe TRAVELING CONSTRUCTION SUPERINTENDENT-HOSPICE MASSAGE THERAPIST glucagon HCL injection 1 mg, 1 mg, intramuscular, PRN, Mary Lowe TRAVELING CONSTRUCTION SUPERINTENDENT-HOSPICE MASSAGE THERAPIST hydrALAZINE (APRESOLINE) injection 10 mg, 10 mg, intravenous, Q6H PRN, Salome Chávez APRN-SHAYNA labetaloL (NORMODYNE,TRANDATE) injection 20 mg, 20 mg, intravenous, Q10 Min PRN, Salome Chávez APRN-SHAYNA, 20 mg at 05/17/25 0024 levETIRAcetam (KEPPRA) IVPB 500 mg/100 mL in iso-osmotic sodium chloride (5 mg/mL premix), 500 mg, intravenous, Q12H SHANTELLE, Stopped at 05/17/25 0847 OR levETIRAcetam (KEPPRA) tablet 500 mg, 500 mg,oral, Q12H SHANTELLE, Mary Lowe TRAVELING CONSTRUCTION SUPERINTENDENT-HOSPICE MASSAGE THERAPIST magnesium sulfate IVPB 2000 mg/50 mL in iso-osmotic water (40 mg/mL premix), 2,000 mg, intravenous,PRN, Stopped at 05/17/25 0415 OR magnesium sulfate IVPB 4000 mg/100 mL in iso-osmotic water (40mg/mL premix), 4,000 mg, intravenous, PRN, Mary Lowe TRAVELING CONSTRUCTION SUPERINTENDENT-HOSPICE MASSAGE THERAPIST ondansetron (PF) (ZOFRAN) injection 4 mg, 4 mg, intravenous, Q6H PRN, Mary Lowe TRAVELING CONSTRUCTION SUPERINTENDENT-HOSPICE MASSAGE THERAPIST pantoprazole (PROTONIX) injection 40 mg, 40 mg, intravenous, QAM AC, Mary R Kahook, TRAVELING CONSTRUCTION SUPERINTENDENT-HOSPICE MASSAGE THERAPIST, 40 mg at 05/17/25 0612 polyethylene glycol (GLYCOLAX) packet 17 g, 17 g, oral, Daily PRN, Mary R Kahook, TRAVELING CONSTRUCTION SUPERINTENDENT-HOSPICE MASSAGE THERAPIST potassium chloride (K-TAB,KLOR-CON) CR tablet 20-40 mEq, 20-40 mEq, oral, PRN OR potassium chloride (KAYCIEL) 20 mEq/15 mL solution 20-40 mEq, 20-40 mEq, oral, PRN, Mary R Kahook, TRAVELING CONSTRUCTION SUPERINTENDENT-HOSPICE MASSAGE THERAPIST potassium chloride IVPB 10 mEq/50 mL in water (0.2 mEq/mL premix), 10 mEq, intravenous, PRN OR potassium chloride IVPB 10 mEq/100 mL in water (0.1 mEq/mL premix), 10 mEq, intravenous, PRN, MaryR Kahook, TRAVELING CONSTRUCTION SUPERINTENDENT-HOSPICE MASSAGE THERAPIST sennosides-docusate sodium (SENOKOT-S) 8.6-50 mg 2 tablet, 2 tablet, oral, Nightly, Mary R Kahook, TRAVELING CONSTRUCTION SUPERINTENDENT-HOSPICE MASSAGE THERAPIST sodium phosphate 20 mmol in sodium chloride 0.9 % 250 mL IVPB, 20 mmol, intravenous, PRN OR sodium phosphate 20 mmol in sodium chloride 0.9 % 100 mL IVPB, 20 mmol, intravenous, PRN OR sod phos di, mono-K phos mono (K-PHOS NEUTRAL) 250 mg tablet 2 tablet, 2 tablet, oral, PRN, Mary R Kahook, TRAVELING CONSTRUCTION SUPERINTENDENT-HOSPICE MASSAGE THERAPIST sodium chloride 0.9 % flush 3 mL, 3 mL, intravenous, PRN, Bashar R Kahook, TRAVELING CONSTRUCTION SUPERINTENDENT-HOSPICE MASSAGE THERAPIST sodium chloride 0.9 % flush 3 mL, 3 mL, intravenous, Q12H SHANTELLE, Bashar R [place], TRAVELING CONSTRUCTION SUPERINTENDENT-HOSPICE MASSAGE THERAPIST, 3 mL at 05/17/25 0832 sodium chloride 0.9 % infusion, 10 mL/hr, intravenous, Continuous PRN, Bashar R K[place]ook, TRAVELING CONSTRUCTION SUPERINTENDENT-HOSPICE MASSAGE THERAPIST sodium chloride 0.9 % infusion, 10 mL/hr, intravenous, Continuous PRN, Bashar R Kahook, TRAVELING CONSTRUCTION SUPERINTENDENT-HOSPICE MASSAGE THERAPIST sodium chloride 0.9 % infusion, 10 mL/hr, intravenous, Continuous PRN, Mary Lowe APRN-SHAYNA sodium chloride 0.9 % infusion, 100 mL/hr, intravenous, Continuous, TRACY Grant, LastRate: 100 mL/hr at 05/17/25 0134, 100 mL/hr at 05/17/25 013 PAST MEDICAL AND SURGICAL HISTORY Past Medical History: Diagnosis Date Breast cancer ([facility] Past Surgical History: Procedure Laterality Date BREAST SURGERY ROTATOR CUFF REPAIR FAMILY HISTORY History reviewed. No pertinent family history. SOCIAL HISTORY Tobacco: reports that she has never smoked. She has never used smokeless tobacco. Alcohol: reports that she does not currently use alcohol. Drugs: reports no history of drug use. REVIEW OF SYSTEMS Unable to obtain as patient is non verbal at this time. All ROS were obtained from medical record. PHYSICAL EXAMINATION Temp: [36.6 ??C (97.8 ??F)-37.7 ??C (99.9 ??F)] 37.6 ??C (99.7 ??F) Pulse: [76-107] 100 Resp: [19-30] 23 BP: (101-157)/(41-68) 155/68 SpO2: [79 %-95 %] 79 % O2 Device: None (Room air) Physical Exam Constitutional: Comments: Awake but does not follow commands appears slightly aggitated. HENT: Head: Normocephalic. Eyes: Pupils: Pupils are equal, round, and reactive to light. Neck: Comments: Cervical Collar in place Cardiovascular: Rate and Rhythm: Normal rate. Pulses: Normal pulses. Pulmonary: Effort: Pulmonary effort is normal. Neurological: Comments: Unable to assess orientation Does move to stimulus all extremities Does not follow commands Is not ansering questions LABORATORY DATA Results from last 7 days Lab Units 05/17/25 0433 05/17/25 0311 05/17/25 0120 05/16/254 05/16/252242 SODIUM mmol/L -- 142 -- -- 141 POTASSIUM mmol/L -- 4.0 -- -- 3.8 CREATININE mg/dL -- 0.67 -- -- 0.65 BEDSIDE GLUCOSE mg/dL -- -- 200* -- -- GLUCOSE mg/dL -- 146* -- -- 158* CALCIUM mg/dL -- 8.0* -- -- 8.4* APTT sec -- -- -- -- 24* INR -- -- -- -- 1.0 WBC x10E9/L 14.4* -- -- 16.3* -- HEMATOCRIT % 33.3* -- -- 37.2 -- HEMOGLOBIN g/dL 11.1* -- -- 12.4 -- PLATELETS X10E9/L 135* -- -- 155 -- Cultures: Microbiology Results Procedure Component Value Units Date/Time Blood culture #1 [[id number]] Collected: 05/16/252307 Specimen: Blood, Venous Updated: 05/17/25 120 CULTURE RESULTS NO GROWTH <24 HRS Narrative: Suboptimal volume of blood collected, Results may be affected. Blood culture #2 [[id number]] Collected: 05/16/252307 Specimen: Blood, Venous Updated: 05/17/251201 CULTURE RESULTS NO GROWTH <24 HRS Narrative: Suboptimal volume of blood collected, Results may be affected. Urine Culture Urine, Indwelling Catheter [[id number]] Collected: 05/16/252307 Specimen: Urine, Indwelling Catheter Updated: 05/16/252326 IMAGING CT brain without contrast Result Date: 05/17/2025 History: SDH, SAH Exam/Technique: CT images of the brain were obtained without IV contrast. CT doesautomated exposure control was utilized. All CT scans at this facility use dose modulation, iterative reconstruction, and/or weight based dosing when appropriate to reduce radiation dose to as low asreasonably achievable. Comparison: Head CT 05/16/2025 Findings: The left frontal lobe vasogenic edema and multiple parenchymal hemorrhagic changes are grossly stable compared to prior exam. There are multiple stable subarachnoid hemorrhagic changes along the left more than right right temporal lobes, both occipital lobes and right cerebellar hemisphere. There are small parenchymal contusion changes at the inferior aspect of the right frontal lobe. There is small subdural hematoma primarily alongthe left tentorium. There is grossly stable 2 mm right subfalcine shift with no gross transtentorial herniation. There is nondisplaced right occipital bone fracture. IMPRESSION: Grossly stable multiple multiple compartments hemorrhagic changes bilaterally at both supratentorial and infratentorial structures. Right occipital bone fracture is grossly stable. Stable 2 mm right subfalcine shift with no gross transtentorial herniation Finalized by Pako Estevez MD on 51:54 AM ASSESSMENT Intracranial Hemorrhage w/ slight shift 2mm w/ no transtentorial herniation SAH PLAN - Non surgical treatment for IPH/SAH - MRI pending for clearing of C-spine, ordered by Trauma - Hold AC/AP until there is [address] head[address] - Neurosurgery to sign off per Dr. Kellogg - remainder per trauma. AHMET Vega-, FOOD QUALITY TESTER Neurosurgery [facility] EPIC Chat preferred 05/17/25 12:43 PM To find out which ANA is on for the day please go to ON-Call Finder in [place] or [employer] and use log in [employer] and search for PTH Neurosurgery TRACY Garcia 05/17/25 1253 * Saqib Luis MD - 05/16/2025 11:19 PM EDTAssociated Order(s): IP CONSULT TO NEUROLOGY Images from the original note were not included. STROKE/NEUROINTERVENTIONAL ISCHEMIC STROKE CONSULT NOTE: SUBJECTIVE: Mei Guardado is a 85 y.o. female who presented after for whom vascular neurology was consulted formultifocal cerebral hemorrhages. She initially presented to [facility] after she was found down yesterday in her bathtub withan unknown downtime. CT of the brain revealed multifocal subarachnoid hemorrhages notably within the bilateral temporal lobes in the bilateral cerebellum. It also revealed There was also an intraparenchymal hemorrhage noted within the left frontal lobe with surrounding edema. CT angiography was unremarkable. Given her unknown circumstances, the vascular Neurology Service was consulted to assess if a cerebrovascular event preceded her fall. Upon evaluation, she is present at bedside with her daughter. She appears to be resting peacefully with her eyes closed, but does not respond or follow commands. Cranial nerves tested were intact andshe briskly withdraws all 4 extremities to noxious stimuli. Her daughter stated that the patient was talking to her family yesterday over the phone, and she was reportedly normal at that time. She has a past medical history significant for hypertension, JEREMY, hyperlipidemia, and possible seizure-like activity per chart review. Premorbid mRS: Unknown, patient unresponsive LKW: Unknown, found down in her tub after an unknown downtime. Possibly on 05/15/2025 NIHSS: 20 CURRENT MEDICATIONS: Scheduled Meds: cefTRIAXone (ROCEPHIN) IV, 1,000 mg, intravenous, Q24H [START ON 05/17/2025] levETIRAcetam, 500 mg, intravenous, Q12H SHANTELLE OR [START ON 05/17/2025] levETIRAcetam, 500 mg, oral, Q12H SHANTELLE [START ON 05/17/2025] pantoprazole, 40 mg, intravenous, QAM AC sennosides-docusate sodium, 2 tablet, oral, Nightly sodium chloride, 1,000 mL, intravenous, Once sodium chloride, 3 mL, intravenous, Q12H SHANTELLE Continuous Infusions: dextrose 5 % in water, 100 mL/hr sodium chloride 0.9 %, 10 mL/hr sodium chloride 0.9 %, 10 mL/hr sodium chloride 0.9 %, 10 mL/hr sodium chloride 0.9 %, 100 mL/hr PRN Meds:. acetaminophen OR acetaminophen OR acetaminophen calcium gluconate OR calcium gluconate OR calcium gluconate dextrose dextrose 5 % in water dextrose 50 % in water (D50W) glucagon (human recombinant) hydrALAZINE labetalol magnesium sulfate OR magnesium sulfate ondansetron polyethylene glycol potassium chloride OR potassium chloride potassium chloride in water OR potassium chloride in water sodium phosphate IV OR sodium phosphate IV - central line OR sod phos di, mono-K phos mono sodium chloride sodium chloride 0.9 % sodium chloride 0.9 % sodium chloride 0.9 % PHYSICAL EXAM: Vital Signs: Blood pressure 157/57, pulse 106, temperature 37.7 ??C (99.9 ??F), temperature source Axillary, resp. rate 25, SpO2 93%. Respiratory Source: O2 Device: None (Room air) Physical Exam Neurologic Exam 1a Level of consciousness: 2=not alert, requires repeated stimulation to attend, or is obtunded andrequires strong or painful stimulation to make movements (not stereotyped) 1b. LOC questions: 2=Performs neither task correctly 1c. LOC commands: 2=Performs neither task correctly 2. Best Gaze: 0=normal 3. Visual: 0=No visual loss 4. Facial Palsy: 0=Normal symmetric movement 5a. Motor left arm: 3=No effort against gravity, limb falls 5b. Motor right arm: 2=Some effort against gravity, limb cannot get to or maintain (if cured) 90 (or 45) degrees, drifts down to bed, but has some effort against gravity 6a. motor left le=Some effort against gravity, limb cannot get to or maintain (if cured) 90 (or45) degrees, drifts down to bed, but has some effort against gravity 6b Motor right le=Some effort against gravity, limb cannot get to or maintain (if cured) 90 (or45) degrees, drifts down to bed, but has some effort against gravity 7. Limb Ataxia: 0=Absent 8. Sensory: 0=Normal; no sensory loss 9. Best Language: 3=Mute, global aphasia; no usable speech or auditory comprehension 10. Dysarthria: 2=Severe; patient speech is so slurred as to be unintelligible in the absence of orour of proportion to any dysphagia, or is mute/anarthric 11. Extinction and Inattention: 0=No abnormality Total: 20 Lab Review No results found for: GLU , CALCIUM , NA , K , CO2 , BUN , CREATININE No results found for: WBC , HGB , HCT , MCV , PLT No results found for: HGBA1C No results found for: CHOL No results found for: LDLCALC No results found for: TRIG Imaging: CT of the brain without contrast: Multifocal subarachnoid hemorrhage primarily within the bilateraltemporal lobes and bilateral cerebellum. Left frontal intraparenchymal hemorrhage with surrounding edema. Assessment: Mei Guardado is a 85 y.o. female who presents with symptoms of unresponsiveness and fall. Their risk factors include hypertension, hyperlipidemia, obstructive sleep apnea. and currently taking nothing. Their initial exam is significant for he is stuporous mental status, but no other clear focal abnormalities. The initial CT brain without contrast demonstrated multifocal subarachnoid and left frontal intraparenchymal hemorrhage. Vessel imaging reveals no acute abnormalities. Perfusion imaging was not obtained. MRI brain without contrast is pending. Impression: Symptoms of altered mental status likely due to multifocal brain hemorrhages secondary to trauma, lower suspicion for her hemorrhages preceding her fall. However, we will obtain an MRI to confirm. Other active conditions: Patient Active Problem List Diagnosis ICH (intracerebral hemorrhage) ([facility]) Plan: Obtain MRI of the brain with and without contrast. Vascular neurology will continue to follow. Saqib Luis MD PGY-3 Neurology Resident [facility] This patient was staffed with discussed with Dr. Caruso. Cosigned by Judson Landrum MD at 05/22/2025 1:24 PM EDT Associated attestation - Judson Landrum MD - 05/22/2025 1:24 PM EDT I saw the patient. I participated and was physically present during the iyer portions of the service. I was directly involved in the management and treatment plan of the patient. I have reviewed the resident???s admission/consultation note. documented in this encounter Nursing Notes * Linda Valadez RN - 05/20/2025 4:10 PM EDT Patient was educated on discharge materials and IV's were removed. Patient is aware she is going [facility] with transport. Report was given to transport and patient is on her way to [facility] facility. documented in this encounter ED Notes * Paula Johansen RN - 05/16/2025 10:22 PM EDT Pt presents to the ED from [facility] as a trauma consult. Pt was found yesterday in the bathtub by her neighbors unresponsive, unknown downtime. Blood also found in the kitchen area. Pt found to have bilateral subarachnoid and cerabellar bleed, a nondisplaced skull fracture, a lac to back of head bleeding controlled, and a hemorrhagic anterior frontal lobe hematoma. Pt is A/Ox4 at baseline, pt currently not speaking, pt alert to voice. Pt received a Tdap, 2grams rocephin, and 1 gram vanco. Pt has a herring in place on arrival. Pts VSS. * Jd Pries MD - 05/16/2025 10:22 PM EDT Images from the original note were not included. [facility] - EMERGENCY DEPARTMENT Pt Name: Mei Guardado Birthdate: 1940 Chief Complaint: Chief Complaint Patient presents with ??? Head Injury History of Present Illness: Initial evaluation completed by Dr. Jd Pires at 10:22 PM. Patient is a 85 y.o. female presenting today with a chief complaint of head injury. Transfer from outside hospital. Diagnosed with skull fracture and brain bleed. Past Medical History: No past medical history on file. Past Surgical History: No past surgical history on file. Family History: No family history on file. Social History: Review of Systems: Review of Systems Physical Exam: ED Triage Vitals [05/16/259] Temp Heart Rate Resp BP SpO2 37.7 ??C (99.9 ??F) 103 24 150/52 95 % Temp Source Heart Rate Source Patient Position BP Location FiO2 (%) Axillary Monitor High-fowlers Left arm -- Vitals: 05/16/259 BP: 150/52 Temp: 37.7 ??C (99.9 ??F) TempSrc: Axillary Pulse: 103 Resp: 24 SpO2: 95% MAP (mmHg): 79 Physical Exam Vitals reviewed. Constitutional: Comments: Acutely ill appearing Partially responsive HENT: Head: Normocephalic and atraumatic. Eyes: Conjunctiva/sclera: Conjunctivae normal. Cardiovascular: Rate and Rhythm: Normal rate. Pulmonary: Effort: Pulmonary effort is normal. Breath sounds: Normal breath sounds. Abdominal: General: There is no distension. Palpations: Abdomen is soft. Musculoskeletal: General: Normal range of motion. Cervical back: Normal range of motion and neck supple. Skin: General: Skin is warm and dry. Neurological: General: No focal deficit present. Mental Status: She is oriented to person, place, and time. GCS: GCS eye subscore is 4. GCS verbal subscore is 5. GCS motor subscore is 6. Procedure: Procedures Re-evaluation: Re-Evaluation Medical Decision Making ED Course: Clinical Impressions as of 05/16/25 2300 ICH (intracerebral hemorrhage) ([facility]) . ED Disposition None . Please note that portions of this note were completed with a voice recognition program. Efforts were made to edit the dictations but occasionally words are mis-transcribed. Gopal Clayton 05/16/252222 Jd Pires MD 05/17/251939 * Grabiel Keys RN - 05/16/2025 10:19 PM EDT Trauma consult , fall in shower at home, found with laceration to head and posterior skull fracture. ground transport to [facility] Er accepted per Mei Francis 85 yrs F (1940) RN Report: Found in bathtub today Didn't show up for meeting Neighbor found her unresponsive Blood found in kitchen as well Bilateral subarachnoid and cerabellar bleed Nondisplaced skull fracture Lac to back of head Hemorrhagic anterior frontal lobe C Spine clear 2g rocephin 1g vanco 1 L fluid Tetanus given Hemoglobin 13 2 IVs 1 right hand Left ac both 20g Responds to name but doesn't speak and doesn't follow commands HOB elevated to at least 80 degrees 160/78, 74, 16, 100% Step Daughter coming from [facility] Left at [facility]: 85 F Found at home in bathtub with head injury Unknown down time Lac to back of head Brain bleeds Alert to verbal stimuli A&O 4 before this VSS 153/70 104 sinus tach 26 96% 20g R forearm 20 g LAC 15 mins out * Marci Noel RN - 05/16/2025 10:18 PM EDT Bed: 27 Expected date: Expected time: Means of arrival: Other EMS Transport ([facility]) Comments: Trauma consult , fall in shower at home, found with laceration to head and posterior skull fracture. ground transport to [facility] Er accepted per Mei Francis 85 yrs F (1940) RN Report: Found in bathtub today Didn't show up for meeting Neighbor found her unresponsive Blood found in kitchen as well Bilateral subarachnoid and cerabellar bleed Nondisplaced skull fracture Lac to back of head Hemorrhagic anterior frontal lobe C Spine clear 2g rocephin 1g vanco 1 L fluid Tetanus given Hemoglobin 13 2 IVs 1 right hand Left ac both 20g Responds to name but doesn't speak and doesn't follow commands HOB elevated to at least 80 degrees 160/78, 74, 16, 100% Step Daughter coming from [facility] Left at [facility]: 85 F Found at home in bathtub with head injury Unknown down time Lac to back of head Brain bleeds Alert to verbal stimuli A&O 4 before this VSS 153/70 104 sinus tach 26 96% 20g R forearm 20 g LAC 15 mins out documented in this encounter Miscellaneous Notes * Plan of Care - Linda Valadez RN - 05/20/2025 1:16 PM EDT Problem: Pain Goal: Patient goal is pain score less than 4, able to rest, and participant in treatment plan as appropriate Description: INTERVENTIONS: 1. Encourage patient or legal inside technical sales representative to report early pain and ask for pain medicine when needed 2. Assess pain using appropriate pain scale and include the scale used when documenting 3. Administer analgesics based on type and severity of pain and evaluate response within appropriate time frame 4. Implement non-pharmacological measures as appropriate and evaluate response 5. Consider cultural and social influences on pain and pain management 6. Notify LIP if interventions ineffective or patient reports new pain 7. Monitor vital signs including pulse ox, end-tidal CO2 based on pain intervention 8. Reassess pain per policy 9. Teach patient or legal inside technical sales representative interventions for comforting Outcome: Adequate for Discharge Note: Patients pain has been well managed. Problem: Safety Goal: Patient will be injury free during hospitalization Description: INTERVENTIONS: 1. Assess patient's risk for falls and implement fall prevention plan of care per policy 2. Provide and maintain a safe environment 3. Proper use of double Identifiers 4. Medication administration using the 5 rights 5. Hand hygiene 6. Specimens are labeled at the bedside 7. Instruct patient/ patient inside technical sales representative about use of safety devices 8. Include patient/ patient inside technical sales representative in decisions related to safety Outcome: Adequate for Discharge Note: Patient has remained free from injury. Patients bed is locked in the low position with call light in reach. Problem: Infection Goal: Absence of infection during hospitalization Description: INTERVENTIONS 1. Assess and monitor for signs and symptoms of infection. 2. Monitor lab/diagnostic results. 3. Monitor all insertion sites i.e., indwelling lines, tubes and drains. 4. Monitor endotracheal (as able) and nasal secretions for changes in amount and color. 5. Administer medications as ordered. 6. Instruct and encourage patient and family to use good hand hygiene technique. 7. Identify and instruct patient/patient inside technical sales representative in use of appropriate isolation precautionsfor identified infection/symptoms. 8. Provide and discuss with patient/patient inside technical sales representative on educational MDRO sheet. 9. Encourage and monitor nutritional status daily and consult dramatic teacher if indicated. 10. Implement neutropenic guidelines as needed. Outcome: Adequate for Discharge Note: Patient has remained free from new infections. Patient educated on infection prevention such as hand hygiene. Problem: Knowledge Deficit Goal: Patient/patient inside technical sales representative demonstrates understanding of disease process, treatment plan,medications, and discharge instructions Description: INTERVENTIONS 1. Complete learning assessment and assess knowledge base 2. Provide teaching at level of understanding 3. Provide teaching via preferred learning method(s) Outcome: Adequate for Discharge Note: Patient demonstrates understanding of disease process and treatment plan. Provided teaching at level of understanding. Problem: Discharge Planning Goal: Discharge to post-acute care, other facility, or home with appropriate resources Description: Patient's goal is: INTERVENTIONS 1. Conduct assessment to determine patient/family and health care team treatment goals, and need for post-acute services based on payer coverage, community resources, and patient preferences, and barriers to discharge 2. Coordinate with Social work, Care Navigation, and Utilization Review to arrange appropriate level of services according to patient's needs based on patient preference and payer coverage in collaboration with the physician and health care team 3. Address psychosocial, clinical, and financial barriers to discharge as identified in assessment in conjunction with the patient/family and health care team 4. Consult appropriate ancillary services (i.e.. PT/OT/ST, etc) as needed 5. Communicate with and update the patient/family, physician, and health care team regarding progress on the discharge plan 6. Identify discharge learning needs (meds, wound care, etc). 7. Arrange for needed discharge transportation as appropriate Outcome: Adequate for Discharge Note: Patient is aware of discharge planning. Problem: Neurological Deficit Goal: Neurological status is stable or improving Description: Patient's goal is: INTERVENTIONS 1. Complete Neurological assessment as indicated/ordered 2. Initiate measures to prevent increased intracranial pressure 3. Monitor and assess patient's level of consciousness, motor function, sensory function, and levelof assistance needed for ADLs 4. Monitor and report changes from baseline 5. Maintain blood pressure and fluid volume within ordered parameters to optimize cerebral perfusion and minimize risk of hemorrhage 6. Monitor labs and diagnostic tests 7. Administer anti-seizure medications as ordered 8. Maintain airway, patient safety and administer oxygen as ordered 9. Monitor patient for seizure activity, document and report duration and description of seizure toLIP 10. If seizure occurs, turn patient to side and suction secretions as needed 11. Reorient patient post seizure 12. Seizure pads on all 4 side rails 13. Instruct patient/family to notify RN of any seizure activity 14. Instruct patient/family to call for assistance with activity based on assessment 15. Utilize bleeding precautions if thrombolytic given Outcome: Adequate for Discharge Note: Patients neurological status has remained stable. Problem: Activity Intolerance/Impaired Mobility Goal: Mobility/activity is maintained at optimum level for patient Description: Patient's goal is: INTERVENTIONS 1. Assess and monitor patient barriers to mobility and need for assistive/adaptive devices 2. Assess patient's emotional response to limitations 3. Collaborate with interdisciplinary teams and initiate plans and interventions as ordered 4. Encourage independent activity per tolerance 5. Maintain proper body alignment 6. Perform active/passive ROM as tolerated/ordered 7. Coordinate activities to conserve energy 8. Reposition patient 9. Ensure adequate rest/sleep time Outcome: Adequate for Discharge Note: Patients mobility has maintained at optimum levels. Problem: Communication Impairment Goal: Ability to express needs and understand communication Description: INTERVENTIONS 1. Assess patient's communication skills and ability to understand information 2. Provide alternate method of communication if needed i.e. ipad, sign board, pen/paper 3. Collaborate with Speech Therapy to develop effective communication strategies 4. Include patient/patient inside technical sales representative in decisions related to communication Outcome: Adequate for Discharge Note: Patient is able to communicate and express needs. Problem: Potential for Aspiration Goal: Patient's risk of aspiration is minimized Description: INTERVENTIONS 1. Assess and monitor vital signs, respiratory status, and labs (WBC) 2. Monitor for signs of aspiration (tachypnea, cough, rales, wheezing, cyanosis, fever) 3. Assess and monitor patient's ability to swallow 4. Place patient up in chair to eat if possible 5. Elevate head of bed 90 degrees to eat if unable to get patient up into chair 6. Supervise patient during oral intake 7. Instruct patient to take small bites 8. Instruct patient to take small single sips when taking liquids 9. Follow patient-specific strategies generated by speech pathologist 10. Complete bedside swallow screen if appropriate and take actions as indicated. 11. Administer prescribed medications and monitor effects Outcome: Adequate for Discharge Note: Patients risk for aspiration is minimized. Problem: Anxiety Goal: Anxiety is at manageable level Description: Patient's goal is: INTERVENTIONS 1. Assess and monitor patient's anxiety level 2. Monitor for signs and symptoms of anxiety both physical and emotional (heart palpitations, chestpain, shortness of breath, headaches, nausea, feeling jumpy, restlessness, irritable, apprehensive) 3. Reorient/orient patient to unit/surroundings 4. Explain treatment plan 5. Explain tests/procedures prior to initiation 6. Encourage participation in care 7. Encourage verbalization of concerns/fears 8. Assess coping mechanisms 9. Assist in developing anxiety-reducing skills 10. Administer complimentary therapies 11. Manage patient's environment 12. Limit or eliminate stimulants such as caffeine and nicotine 13. Collaborate with ancillary departments 14. Include patient/patient inside technical sales representative in decisions related to anxiety Outcome: Adequate for Discharge Note: Patients anxiety level has remained low and manageable. Problem: Inadequate Coping Goal: Demonstrates and verbalizes ability to cope effectively Description: Patient's goal is: INTERVENTIONS 1. Patient is able to verbalize feelings related to emotional state 2. Encourage verbalization of feelings, perceptions, fears, stressors, loss of loved ones 3. Encourage verbalization of problems out of their control 4. Encourage participation in care and self management 5. Inform patient of all treatment/care prior to providing care 6. Collaborate with pastoral/spiritual care, social media director, mental health counselor as needed. 7. Instruct patient on diversional activities such as physical activity, distraction, and deep breathing exercises to assist with coping 8. Involve patient's inside technical sales representative in care Outcome: Adequate for Discharge Note: Patient demonstrates ability to cope. Problem: Potential for Compromised Skin Integrity Goal: Skin integrity is maintained or improved Description: Patient's goal is: INTERVENTIONS 1. Perform initial skin assessment on admission and as needed 2. Turn patient every 2 hours and PRN 3. Relieve pressure to bony prominences 4. Avoid shearing 5. Keep skin clean and dry 6. Alternate a full bath with partial baths for elderly 7. Apply lotion/moisturizer on skin 8. Monitor patient's hygiene practices 9. Float heels 10. Collaborate with interdisciplinary team and initiate plans and interventions as needed Outcome: Adequate for Discharge Note: Patients skin integrity has been maintained. Goal: Patient's nutritional intake is adequate Description: Patient's goal is: INTERVENTIONS 1. Assess and monitor food intake and supplements, patient food preferences, nausea, vomiting, labs, oral cavity (gums, teeth, tongue, mucosa), proper denture fit, and cultural beliefs 2. Monitor for signs of hypoglycemia and hyperglycemia 3. Collaborate with interdisciplinary team and initiate plan and interventions as ordered 4. Monitor patient's weight 5. Assist patient with meals/food selection 6. Assist patient with eating 7. Allow adequate time for meals 8. Provide pleasant environment during mealtime 9. Increase social contact during mealtimes 10. Plan activities to conserve energy 11. Encourage/perform oral hygiene as appropriate 12. Encourage patient to take dietary supplement as ordered 13. Collaborate with clinical dramatic teacher 14. Include patient/ patient's inside technical sales representative in decisions related to nutrition Outcome: Adequate for Discharge Note: Patients nutritional intake is adequate. Problem: Self Care Deficit Goal: Return ADL status to a safe level of function Description: Patient's goal is: INTERVENTIONS 1. Administer medication as ordered 2. Assess ADL deficits and provide assistive devices as needed 3. Obtain PT/OT consults as needed 4. Assist and instruct patient to increase activity and self care as tolerated Outcome: Adequate for Discharge Note: Patients ADL's are at a safe level of function. Problem: Moderate - High Risk Fall Score Description: [place] Fall Score of =/> 25 or indicated by [facility] Assessment Goal: Patient should be free from fall Description: Interventions: 1. Power to environment 2. Hourly rounds addressing the 4 P's (Pain, Positioning, Possessions, Potty) 3. Clear area of hazards (spills, clutter, electrical cords, unnecessary equipment) 4. Place equipment (bed & TV controls, call light, phone, urinal) within reach 5. Encourage patient to wear glasses and hearing aides as appropriate 6. Maintain bed in lowest position 7. Lock wheels on bed/wheelchair 8. Provide adequate lighting, including night light 9. Assess need for additional bedding, food/fluids, pain med's prior to sleep/routinely 10. Provide gripper slippers or personal non-skid footwear 11. Teach patient and patient inside technical sales representative to maintain environment for safety and engage in all aspects of fall prevention program 12. Remind patient to call for help before getting out of bed 13. Initiate bed/chair/exit alarms supportive devices as appropriate, (chair wedge, no-skid floor mat, raised edge mattress, hip protectors) 14. Locate patient bed assignment for optimal visualization 15. Evaluate and identify Safe Patient Handling Equipment needs 16. Provide supervision when out of bed or chair 17. Utilize gait belt as needed to assist with ambulation 18. Place adaptive equipment (cane, walker) within reach 19. Request patient inside technical sales representative bring adaptive equipment/mobility aids from home or obtain and provide as needed 20. Consult pharmacy regarding effects of med's affecting mobility, cognition, and alternatives 21. Obtain physician order for PT if risk factors associated with mobility are present 22. Obtain physician order for OT as appropriate 23. Utilize diversional activities 24. Educate patient and patient inside technical sales representative how to maintain a safe environment during visitationtimes (notify nurse prior to leaving bedside) 25. Consider appropriateness of medical or non-medical unit secretary 26. Set up voiding schedule as appropriate (every 2 hours) Outcome: Adequate for Discharge Note: Patient has remained free from falls. * Discharge Planning Note - Kandi Rosenthal RN - 05/20/2025 12:32 PM EDT 05/20/25 1231 Referral To Community Referrals / Resources Provided Denies needs Services Requested Patient expects to be discharged to: [facility] Does the patient wish to have family/friend/caregiver involved in their discharge planning? Yes Does the patient plan to return home to a community setting? No, patient to discharge to facility-based provider. See Discharge Disposition Discharge Disposition SNF SNF Name [facility] SNF Accepted? Yes Does the patient need discharge transportation arranged? Yes Transportation Arranged Ambulance Mobility issues discussed with transportation provider Yes Patient choice offered Yes List Provided Yes [facility] List Provided [facility] DC Planning Complete Discharge Milestones Yes DISCHARGE PLANNING NOTE [facility] is able to accept. Pt informed and is ok w that plan Transport set for 3pm. CNspoke w pts daughter Tawnya and informed her of DC. DC packet on chart and Hens completed. RN given number for report. CRF faxed to [facility]. Kandi Rosenthal RN * Discharge Planning Note - Dimitri Rashid - 05/20/2025 12:12 PM EDT DISCHARGE PLANNING NOTE BLS transport with PTN confirmed via [facility] to [facility] [phone] at 1500 * Plan of Care - Nilda Caraballo RN - 05/19/2025 9:48 PM EDT Problem: Pain Goal: Patient goal is pain score less than 4, able to rest, and participant in treatment plan as appropriate Description: INTERVENTIONS: 1. Encourage patient or legal inside technical sales representative to report early pain and ask for pain medicine when needed 2. Assess pain using appropriate pain scale and include the scale used when documenting 3. Administer analgesics based on type and severity of pain and evaluate response within appropriate time frame 4. Implement non-pharmacological measures as appropriate and evaluate response 5. Consider cultural and social influences on pain and pain management 6. Notify LIP if interventions ineffective or patient reports new pain 7. Monitor vital signs including pulse ox, end-tidal CO2 based on pain intervention 8. Reassess pain per policy 9. Teach patient or legal inside technical sales representative interventions for comforting Note: Patient's pain assessed using numerical scale 0-10. Nonpharmacological and phamacological measures used to manage pain as ordered. Will continue to assess and monitor as necessary Problem: Safety Goal: Patient will be injury free during hospitalization Description: INTERVENTIONS: 1. Assess patient's risk for falls and implement fall prevention plan of care per policy 2. Provide and maintain a safe environment 3. Proper use of double Identifiers 4. Medication administration using the 5 rights 5. Hand hygiene 6. Specimens are labeled at the bedside 7. Instruct patient/ patient inside technical sales representative about use of safety devices 8. Include patient/ patient inside technical sales representative in decisions related to safety Note: No events reported during shift. Bed is locked and in lowest position with side rails up x2, call light and personal items are within reach, hourly rounding completed, non skid socks maintained. Problem: Infection Goal: Absence of infection during hospitalization Description: INTERVENTIONS 1. Assess and monitor for signs and symptoms of infection. 2. Monitor lab/diagnostic results. 3. Monitor all insertion sites i.e., indwelling lines, tubes and drains. 4. Monitor endotracheal (as able) and nasal secretions for changes in amount and color. 5. Administer medications as ordered. 6. Instruct and encourage patient and family to use good hand hygiene technique. 7. Identify and instruct patient/patient inside technical sales representative in use of appropriate isolation precautionsfor identified infection/symptoms. 8. Provide and discuss with patient/patient inside technical sales representative on educational MDRO sheet. 9. Encourage and monitor nutritional status daily and consult dramatic teacher if indicated. 10. Implement neutropenic guidelines as needed. Note: Handwashing and standard precautions maintained, patient remains free of signs and symptoms of infection, patient is afebrile, IV insertion site monitored. Will continue to monitor for signs and symptoms of infection. Problem: Knowledge Deficit Goal: Patient/patient inside technical sales representative demonstrates understanding of disease process, treatment plan,medications, and discharge instructions Description: INTERVENTIONS 1. Complete learning assessment and assess knowledge base 2. Provide teaching at level of understanding 3. Provide teaching via preferred learning method(s) Note: Patient states understanding of plan of care, medications, and discharge plans at this time. Will continue to monitor and educate as necessary Problem: Neurological Deficit Goal: Neurological status is stable or improving Description: Patient's goal is: INTERVENTIONS 1. Complete Neurological assessment as indicated/ordered 2. Initiate measures to prevent increased intracranial pressure 3. Monitor and assess patient's level of consciousness, motor function, sensory function, and levelof assistance needed for ADLs 4. Monitor and report changes from baseline 5. Maintain blood pressure and fluid volume within ordered parameters to optimize cerebral perfusion and minimize risk of hemorrhage 6. Monitor labs and diagnostic tests 7. Administer anti-seizure medications as ordered 8. Maintain airway, patient safety and administer oxygen as ordered 9. Monitor patient for seizure activity, document and report duration and description of seizure toLIP 10. If seizure occurs, turn patient to side and suction secretions as needed 11. Reorient patient post seizure 12. Seizure pads on all 4 side rails 13. Instruct patient/family to notify RN of any seizure activity 14. Instruct patient/family to call for assistance with activity based on assessment 15. Utilize bleeding precautions if thrombolytic given Note: Complete Neurological assessment as indicated/ordered * Discharge Planning Note - Bee Lu - 05/19/2025 2:36 PM EDT DISCHARGE PLANNING NOTE Referral sent to [facility] (P# ; F# ) , [facility] (P#: ; F#: ) , [facility] in [place], [place] (P# ; F#: ) * Plan of Care - Merari Cordon [facility] - 05/19/2025 2:30 PM EDT Problem: Medication Description: If medication is necessary, use low-risk medication that does not interfere with what matters to the older adult patient, mobility, or mentation across settings of care. Goal: Patient will be screened for high-risk medications once per stay Description: Interventions: 1. Pharmacist to perform medication review to screen for high-risk medications 2. Pharmacist to identify high-risk medications in the Plan of Care note 3. Pharmacist to make recommendations for follow-up in the Plan of Care note, if warranted Outcome: Completed Note: Medications individually and in combination may interfere with What Matters, Mentation, and safe Mobility because of the increased risk of confusion, delirium, unsteadiness and falls. Profile review indicates this patients has active orders for no high risk medications. * Discharge Planning Note - Bee Lu - 05/19/2025 1:20 PM EDT DISCHARGE PLANNING NOTE Referral sent to [facility] P#[phone] [calling report];/[facility] (P# [calling report]; F# ) * Discharge Planning Note - Mable Fisher RN - 05/19/2025 12:50 PM EDT Images from the original note were not included. Initial Assessment Initial Assessment Flowsheet Row Most Recent Value Patient Information Initial Pre-Hospitalization Assessment Completed? Completed Primary Caregiver Self Support System Family Members Discharge Planning Living Arrangements Alone Assistance Needed none Type of Residence Private residence Home Care Services No Community Agencies Currently Utilized None Community Referrals / Resources Provided Denies needs Stressors Income Information Income Information Retired/Pension/Social Security IP Hunger/Food Insecurity Screening Within the past 12 months we worried whether our food would run out before we got money to buy more. Never True Within the past 12 months the food we bought just didn't last and we didn't have money to get more.Never True Hunger Screening Complete? Yes Pt. Eligible for Food / Voucher No Caregiver/Family Member Caregiver/Support System Limitations Patient/Caregiver Goals Patient/Caregiver Goals Senior Care Care Skilled Nuring Care Skilled Care (Short Term) Community Provider Referral Community Provider Referral None Services Requested Patient expects to be discharged to: SNF Does the patient wish to have family/friend/caregiver involved in their discharge planning? Yes Does the patient plan to return home to a community setting? No, patient to discharge to facility-based provider. See Discharge Disposition Discharge Disposition SNF Does the patient need discharge transportation arranged? Yes Patient choice offered Yes List Provided Yes [facility] List Provided Senior Care Facility Patient Goals: Patient/Caregiver Goals Patient/Caregiver Goals: Senior Care Care Skilled Nuring Care: Skilled Care (Short Term) Goals: Goals discharge (pt-stated) Evaluation of progress towards goal: Safe discharge from hospital Braille Translator met with patient at bedside and introduced self and explained role. Patient's PCP and pharmacy was confirmed. Patient needs assistance with ADL's and has none for DME. Per patient report: Smoking: denies ETOH: denies Drugs: denies Patient does not endorse issue obtaining food or medications and all utilities are working. Discharge disposition: SNF placement. SNF list given. Patient and family looking it over. Braille Translator will continue to follow for ongoing discharge transition needs. - Mable Fisher RN 05/19/25 12:50 PM Family wants to go to SNF closer to home instead of [facility]. Referrals sent. - Mable Fisher RN 05/19/25 1:47 PM * PT/OT/MARKETING PROGRAMS MANAGER - RADHA Christensen/Yocasta - 05/19/2025 11:24 AM EDT Occupational Therapy Evaluation Discharge Recommendations for Safe Patient Transition OT Discharge Disposition Recommendation: Post acute - moderate OT Post Acute Moderate Rehab Needs: Tolerate 1-2 hrs of therapy 3-5 days/wk, Recommend moderate intensity rehab Current Impairments Informing Therapy Recommendation: Ambulation status/safety, Cognition, Fall risk, ADL status, Endurance level Therapy Plan Need for skilled Occupational Therapy to address deficits in ADL independence and functional mobility due to a status decline resulting from admit from outside hospital after having a traumatic fall at home and neighbor performed well check and found her down in the bathtub. Taken to [facility] was found to have the following: B SAH in B temporal lobes and B cerebellum, L IPH frontal lobe, non displaced skull fracture, R posterior scalp hematoma, leukocytosis, lactic acidosis. She has been confused and amnestic to the event. She is very unsteady on her feet at the present time. She will benefit from therapy services. Past Surgical History: Procedure Laterality Date BREAST SURGERY ROTATOR CUFF REPAIR Past Medical History: Diagnosis Date Breast cancer ([facility]) 6 Clicks: Daily Activity Putting on and taking off regular lower body clothing?: A lot Bathing (including washing, rinsing, drying)?: A lot Toileting, which includes using toilet, bedpan or urinal?: A little Putting on and taking off regular upper body clothing?: A little Taking care of personal grooming such as brushing teeth?: A little Eating meals?: A little Scoring Daily Activity Raw Score: 16 CMS G Code Modifier: CK OT Treatment/Interventions: ADL retraining, Functional transfer training, UE strengthening/ROM, Endurance training, Patient/family training, Equipment eval/education, Balance, Bed mobility, Compensatory technique education, Functional activities, Coordination activities, Neuromuscular reeducation OT Frequency: 4-5days/week OT Duration: 06/16/25 Assessment Patient Assessment Therapy Problem List: Decreased ADL status, Decreased balance, Decreased endurance, Decreased mobility, Decreased self-care trans, Decreased safe judgement during ADL, Decreased UE strength Patient Response to Treatment: Tolerated evaluation without adverse reaction Mood/Affect: Appropriate for circumstances Rehab Prognosis: Good, With continued OT status post acute discharge Visit RN Communication: Yes Medical Record Reviewed: Yes OT Type of Visit: Evaluation Precautions Activity: Eary Mobility Equipment: gait belt, RW, chair alarm Telemetry/Tax Manager Public: Yes Other: fall risk, some confusion/disorientation Pain Assessment Pain Assessment: No/denies pain Home Living Type of Home: House Home Layout: Two level, Laundry in basement, Able to live on main level with bedroom/bathroom, Stairs to enter with rails Stairs to Enter: 2 Hand Rails: Bilateral (bilateral rails to the front of the home and right rail to the garage and left rail to the basement) Stairs in Home: flight to the basement Hand Rails in Home: Left Bathroom Shower/Tub: Tub/shower unit (tub/shower and walk in shower available) Bathroom Toilet: Raised Bathroom Equipment: Grab bars in shower (grab bar in the tub/shower) Home Equipment: Cane, Rolling walker Other : Typically patient is independent without AE prior to admit Prior Function Lives With: Alone Receives Help From: Family (her step daughter Clotilde and her Lola live in [place] and [facility] family in the [facility] - Clotilde stated she would stay with the patient upon return home if needed when the time came) Level of Mobility: Independent with ADLs and functional transfers or gait Homemaking Assistance: Independent Vocational: Retired Other: One fall this past year walking driveway to get mail ADL / IADL Hand Dominance: Right Eating Assistance: Setup Grooming Assistance: Min assist Bathing/Showering Assistance: Mod assist Toilet/Commode Assistance: Contact guard assist UE Dressing Assistance: Contact guard assist LE Dressing Assistance: Min assist Footwear Assistance: Min assist Hearing / Speech / Vision Hearing: Within Functional Limits Speech: Delayed responses (dysarthria, difficulty getting words out at times, perhaps a swollen tongue) Current Vision: Wears glasses all the time Visual History: (severely nearsighted) Cognition Overall Cognitive Status: Exceptions to Within Functional Limits Arousal/Alertness: Delayed responses to stimuli Attention Span: Attends with cues to redirect Memory: Appears intact (amnestic to the fall at home...) Orientation Level: Oriented X4 Following Commands: Follows one step commands with increased time Safety Judgment: Decreased awareness of need for safety, Decreased awareness of need for assistance Awareness of Errors: Decreased awareness of errors, Assistance required to correct errors made, Assistance required to identify errors made Insight of Deficits: Decreased awareness of deficits Problem Solving: Reduced, Assistance required to implement solutions, Assistance required to generate solutions Sensation Overall Sensation Status: Within Functional Limits Bed Mobility Supine to Sit: Contact guard assist Other: Up to chair end of session Transfers Sit to Stand: Min assist Stand to Sit: Min assist Bed to Chair: Min assist Toilet Transfers: Min assist Other: MIn x1 with RW and Min x2 hand held without device Gait Gait Assistance: Min assist Assistive Device: Rolling walker Gait Distance: Refer to PT Limiting Factors to Gait: Weakness, Fatigue, Decreased safety Other: Unsteady with mobility Balance Sitting Balance: Static: Good Sitting Balance: Dynamic: Fair ((+)) Standing Balance: Static: Poor Standing Balance: Dynamic: Poor RUE Assessment: (AROM WFL, gross MMT 4-/5) LUE Assessment: (AROM WFL, grossly 4-/5) Activity Tolerance Endurance: Tolerates >30 minutes activity with rest breaks Plan Occupational Therapy Care Plan Occupational Therapy Care Plan (Active) Template: OT - Occupational Therapy Problem: Activity Tolerance Dates: Start: 05/19/25 Disciplines: OT Goal: Tolerate > 30 minutes of activity WITH rest breaks Dates: Start: 05/19/25 Expected End: 06/16/25 Description: Goal Description: Disciplines: OT Problem: Bed Mobility Dates: Start: 05/19/25 Disciplines: OT Goal: Patient will perform bed mobility Independently Dates: Start: 05/19/25 Expected End: 06/16/25 Description: Goal Description: Disciplines: OT Problem: Coordination Dates: Start: 05/19/25 Disciplines: OT Goal: Improve coordination Dates: Start: 05/19/25 Expected End: 06/16/25 Description: Of extremity/location: BUE/BLE gross/fine To facilitate: improve assist with self care and mobility Disciplines: OT Problem: Functional Mobility Dates: Start: 05/19/25 Disciplines: OT Goal: Patient will perform functional mobility with Modified Tatums Dates: Start: 05/19/25 Expected End: 06/16/25 Description: Goal Description: Disciplines: OT Problem: Other (Customize) Dates: Start: 05/19/25 Disciplines: OT Goal: Improve Dates: Start: 05/19/25 Expected End: 06/16/25 Description: Goal Description: improve self care to independent or modified independent Disciplines: OT Problem: Sitting Balance Dates: Start: 05/19/25 Disciplines: OT Goal: Improve balance to good Dates: Start: 05/19/25 Expected End: 06/16/25 Description: Static Dynamic Disciplines: OT Problem: Standing Balance Dates: Start: 05/19/25 Disciplines: OT Goal: Improve balance to good Dates: Start: 05/19/25 Expected End: 06/16/25 Description: Static Dynamic Disciplines: OT Problem: Strength Dates: Start: 05/19/25 Disciplines: OT Goal: Improve strength Dates: Start: 05/19/25 Expected End: 06/16/25 Description: Of extremity/ location: BUE to 4+/5 To facilitate: improve assist with self care and mobility Disciplines: OT Problem: Toilet Transfers Dates: Start: 05/19/25 Disciplines: OT Goal: Patient will perform toilet transfers with Modified Tatums Dates: Start: 05/19/25 Expected End: 06/16/25 Description: Goal Description: Disciplines: OT Problem: Transfers Dates: Start: 05/19/25 Disciplines: OT Goal: Patient will perform transfers with Modified Tatums Dates: Start: 05/19/25 Expected End: 06/16/25 Description: Goal Description: Disciplines: OT Problem: Tub/Shower Transfers Dates: Start: 05/19/25 Disciplines: OT Goal: Patient will perform tub/shower transfers with Stand By Assist Dates: Start: 05/19/25 Expected End: 06/16/25 Description: Goal Description: Disciplines: OT Occupational Therapy Care Plan (Resolved) There are no resolved problems. Principal Problem: ICH (intracerebral hemorrhage) ([facility]) * PT/OT/MARKETING PROGRAMS MANAGER - Cass Alexis, PT - 05/19/2025 11:23 AM EDT Physical Therapy Evaluation Discharge Recommendations for Safe Patient Transition PT Discharge Disposition Recommendation: Post acute - moderate PT Post Acute Moderate Rehab Needs: Recommend moderate intensity rehab, Tolerate 1-2 hrs of therapy3-5 days/wk, Subacute or chronic functional impairment Current Impairments Informing Therapy Recommendation: Ambulation status/safety, Cognition, Fall risk 6 Clicks: Basic Mobility Turning from your back to your side while in a flat bed without using bed rails?: A little Moving from lying on your back to sitting on side of flat bed without using bed rails?: A little Moving to and from bed to a chair (including w/c)?: A little Standing up from a chair using your arms (e.g. w/c or bedside chair)?: A little To walk in hospital room?: A little Climbing 3-5 steps with a railing?: A lot Scoring 6 Clicks: Basic Mobility Raw Score: 17 [facility] G Code Modifier: CK Pt is an 85 yo female admit 05/17 from [facility] after found down at home by neighbor. Appears that pt had fall in kitchen and then walked to bathroom where she fell again. Pt amnestic to events. Pt with laceration to back of head and found to have skull fracture, B SAH in temporal lobes andIPH L frontal lobe. Past Medical History: Diagnosis Date Breast cancer ([facility]) Past Surgical History: Procedure Laterality Date BREAST SURGERY ROTATOR CUFF REPAIR Therapy Plan Need for skilled Physical Therapy to address deficits in functional mobility due to a status decline resulting from admit for fall at home with B SAH and L frontal IPH with skull fracture. PT Treatment/Interventions: Functional transfer training, LE strengthening/ROM, Patient/family training, Equipment eval/education, Balance, Stair training, Gait training, Functional activities PT Frequency: 4-5days/week PT Duration: 06/06/25 Assessment Patient Assessment Therapy Problem List: Decreased balance, Decreased mobility, Decreased safe judgement during ADL, Decreased LE strength Patient Response to Treatment: Tolerated evaluation without adverse reaction Mood/Affect: Appropriate for circumstances Rehab Prognosis: Good, With continued PT status post acute discharge Visit RN Communication: Yes Medical Record Reviewed: Yes PT Type of Visit: Evaluation Precautions Activity: act as tolerated Equipment: gait belt, wheeled walker, chair alarm Telemetry/Tax Manager Public: Yes Oxygen Used: room air Other: fall risk, mild confusion, decreased balance Pain Assessment Pain Assessment: No/denies pain Home Living Type of Home: House Home Layout: One level, Laundry in basement, Able to live on main level with bedroom/bathroom, Stairs to enter with rails Stairs to Enter: 2 Hand Rails: Bilateral Stairs in Home: flight to basement Hand Rails in Home: Left Bathroom Shower/Tub: Walk-in shower Bathroom Toilet: Raised Home Equipment: Cane, Rolling walker Other : Pt not using AD design technician. Pt did have 1 other fall earlier this year. Prior Function Lives With: Alone Receives Help From: Family (Step-dtr Clotilde and her Lola live in [place]. Clotilde reports she would be able to stay with pt upon return home as needed.) Level of Mobility: Independent with ADLs and functional transfers or gait Homemaking Assistance: Independent Vocational: Retired Other: Pt indep at baseline without AD. Pt has assist with yardwork ADL / IADL Hand Dominance: Right Hearing / Speech / Vision Hearing: Within Functional Limits Speech: Delayed responses (mild word finding difficulty, slower) Current Vision: Wears glasses all the time Other: degeneration with severe nearsightedeness Cognition Overall Cognitive Status: Exceptions to Within Functional Limits Arousal/Alertness: Delayed responses to stimuli Attention Span: Attends with cues to redirect Memory: Decreased recall of recent events, Decreased short term memory Orientation Level: Oriented X4 Following Commands: Follows one step commands with repetition Safety Judgment: Decreased awareness of need for assistance, Decreased awareness of need for safety Awareness of Errors: Decreased awareness of errors Insight of Deficits: Decreased awareness of deficits Problem Solving: Reduced Interfering Components: Processing speed, Working memory Sensation Overall Sensation Status: Within Functional Limits Bed Mobility Supine to Sit: Contact guard assist Other: mild lightheadedness with sitting at EOB and pt remained up in chair after session with chair alarm intact Transfers Sit to Stand: Min assist, Verbal cues Stand to Sit: Min assist, Verbal cues Bed to Chair: Min assist Toilet Transfers: Min assist, Verbal cues Other: unsteady in standing needing UE support and assist. Pt benefits from walker support but needs cues for safety Gait Base of Support: Narrow Pattern: Decreased cate, Scissoring, Ataxic Gait Assistance: Min assist Assistive Device: None, Rolling walker Gait Distance: Pt amb 12 feet in room with EXECUTIVE SECRETARY x 2, 40 [address] with RW, min A x 1 Limiting Factors to Gait: Other (comment), Decreased safety (decreased balance) 2 Turns: Yes Other: Pt unsteady with scissoring at times, 2-3 LOB even with walker support at this time. Balance Balance Evaluation: Exceptions to Functional Limits Sitting Balance: Static: Good Sitting Balance: Dynamic: Fair Standing Balance: Static: (Fair-) Standing Balance: Dynamic: Poor Other: Benefits from walker support for balance RLE Assessment: (4/5 throughout) LLE Assessment: (4/5 throughout) Activity Tolerance Endurance: Tolerates 30 minutes activity with rest breaks Plan Physical Therapy Care Plan Physical Therapy Care Plan (Active) Template: PT - Physical Therapy Problem: Activity Tolerance Dates: Start: 05/19/25 Disciplines: PT Goal: Tolerate > 30 minutes of activity WITH rest breaks Dates: Start: 05/19/25 Expected End: 06/06/25 Description: Goal Description: For seated and standing activities for improved mobility Disciplines: PT Problem: Bed Mobility Dates: Start: 05/19/25 Disciplines: PT Goal: Patient will perform bed mobility Independently Dates: Start: 05/19/25 Expected End: 06/06/25 Description: Goal Description: Disciplines: PT Problem: Gait Dates: Start: 05/19/25 Disciplines: PT Goal: Patient will perform gait with Modified Tatums Dates: Start: 05/19/25 Expected End: 06/06/25 Description: 150 feet with least restrictive AD for safe mobility in home Goal Description: Disciplines: PT Problem: Sitting Balance Dates: Start: 05/19/25 Disciplines: PT Goal: Improve balance to good Dates: Start: 05/19/25 Expected End: 06/06/25 Description: Static Dynamic Disciplines: PT Problem: Stairs/Curb Dates: Start: 05/19/25 Disciplines: PT Goal: Patient will perform stairs/curb with Supervision Dates: Start: 05/19/25 Expected End: 06/06/25 Description: 2 steps with HR support for safe entry into home Goal Description: Disciplines: PT Problem: Standing Balance Dates: Start: 05/19/25 Disciplines: PT Goal: Improve balance to good Dates: Start: 05/19/25 Expected End: 06/06/25 Description: Static Dynamic with UE support as needed for safe mobility, decreased fall risk Disciplines: PT Problem: Transfers Dates: Start: 05/19/25 Disciplines: PT Goal: Patient will perform transfers with Modified Tatums Dates: Start: 05/19/25 Expected End: 06/06/25 Description: Goal Description: with RW support as needed Disciplines: PT Physical Therapy Care Plan (Resolved) There are no resolved problems. Principal Problem: ICH (intracerebral hemorrhage) ([facility]) * Plan of Care - Jude Tafoya RN - 05/19/2025 7:15 AM EDT Problem: Pain Goal: Patient goal is pain score less than 4, able to rest, and participant in treatment plan as appropriate Description: INTERVENTIONS: 1. Encourage patient or legal inside technical sales representative to report early pain and ask for pain medicine when needed 2. Assess pain using appropriate pain scale and include the scale used when documenting 3. Administer analgesics based on type and severity of pain and evaluate response within appropriate time frame 4. Implement non-pharmacological measures as appropriate and evaluate response 5. Consider cultural and social influences on pain and pain management 6. Notify LIP if interventions ineffective or patient reports new pain 7. Monitor vital signs including pulse ox, end-tidal CO2 based on pain intervention 8. Reassess pain per policy 9. Teach patient or legal inside technical sales representative interventions for comforting Outcome: Progressing Note: Patient currently denies pain. Patient encouraged to communicate with staff if pain occurs. Care continues. Problem: Safety Goal: Patient will be injury free during hospitalization Description: INTERVENTIONS: 1. Assess patient's risk for falls and implement fall prevention plan of care per policy 2. Provide and maintain a safe environment 3. Proper use of double Identifiers 4. Medication administration using the 5 rights 5. Hand hygiene 6. Specimens are labeled at the bedside 7. Instruct patient/ patient inside technical sales representative about use of safety devices 8. Include patient/ patient inside technical sales representative in decisions related to safety Outcome: Progressing Note: Patient safety maintained, call light in reach, area clear of hazards, hourly rounding continued, bed locked in lowest position, alarm on as applicable, non skid socks on, safety educated completed with patient/family, no injuries noted at this time. Problem: Infection Goal: Absence of infection during hospitalization Description: INTERVENTIONS 1. Assess and monitor for signs and symptoms of infection. 2. Monitor lab/diagnostic results. 3. Monitor all insertion sites i.e., indwelling lines, tubes and drains. 4. Monitor endotracheal (as able) and nasal secretions for changes in amount and color. 5. Administer medications as ordered. 6. Instruct and encourage patient and family to use good hand hygiene technique. 7. Identify and instruct patient/patient inside technical sales representative in use of appropriate isolation precautionsfor identified infection/symptoms. 8. Provide and discuss with patient/patient inside technical sales representative on educational MDRO sheet. 9. Encourage and monitor nutritional status daily and consult dramatic teacher if indicated. 10. Implement neutropenic guidelines as needed. Outcome: Progressing Note: Currently being treated for infection. Care continues, along with collaboration with care team as new signs and symptoms arise. Problem: Knowledge Deficit Goal: Patient/patient inside technical sales representative demonstrates understanding of disease process, treatment plan,medications, and discharge instructions Description: INTERVENTIONS 1. Complete learning assessment and assess knowledge base 2. Provide teaching at level of understanding 3. Provide teaching via preferred learning method(s) Outcome: Progressing Note: Care plan discussed & goals for shift set with patient input appreciated. All questions answered. Problem: Discharge Planning Goal: Discharge to post-acute care, other facility, or home with appropriate resources Description: Patient's goal is: INTERVENTIONS 1. Conduct assessment to determine patient/family and health care team treatment goals, and need for post-acute services based on payer coverage, community resources, and patient preferences, and barriers to discharge 2. Coordinate with Social work, Care Navigation, and Utilization Review to arrange appropriate level of services according to patient's needs based on patient preference and payer coverage in collaboration with the physician and health care team 3. Address psychosocial, clinical, and financial barriers to discharge as identified in assessment in conjunction with the patient/family and health care team 4. Consult appropriate ancillary services (i.e.. PT/OT/ST, etc) as needed 5. Communicate with and update the patient/family, physician, and health care team regarding progress on the discharge plan 6. Identify discharge learning needs (meds, wound care, etc). 7. Arrange for needed discharge transportation as appropriate Outcome: Progressing Note: Discharge planning in progress with appropriate multidisciplinary teams. Problem: Neurological Deficit Goal: Neurological status is stable or improving Description: Patient's goal is: INTERVENTIONS 1. Complete Neurological assessment as indicated/ordered 2. Initiate measures to prevent increased intracranial pressure 3. Monitor and assess patient's level of consciousness, motor function, sensory function, and levelof assistance needed for ADLs 4. Monitor and report changes from baseline 5. Maintain blood pressure and fluid volume within ordered parameters to optimize cerebral perfusion and minimize risk of hemorrhage 6. Monitor labs and diagnostic tests 7. Administer anti-seizure medications as ordered 8. Maintain airway, patient safety and administer oxygen as ordered 9. Monitor patient for seizure activity, document and report duration and description of seizure toLIP 10. If seizure occurs, turn patient to side and suction secretions as needed 11. Reorient patient post seizure 12. Seizure pads on all 4 side rails 13. Instruct patient/family to notify RN of any seizure activity 14. Instruct patient/family to call for assistance with activity based on assessment 15. Utilize bleeding precautions if thrombolytic given Outcome: Progressing Note: Patient's level of consciousness, motor function, sensory function, and level of assistance needed for ADLs all monitored and assessed at this time. Changes from baseline reported to necessary personal when needed. Patients care is optimized for cerebral perfusion accordingly to patients orders. Problem: Activity Intolerance/Impaired Mobility Goal: Mobility/activity is maintained at optimum level for patient Description: Patient's goal is: INTERVENTIONS 1. Assess and monitor patient barriers to mobility and need for assistive/adaptive devices 2. Assess patient's emotional response to limitations 3. Collaborate with interdisciplinary teams and initiate plans and interventions as ordered 4. Encourage independent activity per tolerance 5. Maintain proper body alignment 6. Perform active/passive ROM as tolerated/ordered 7. Coordinate activities to conserve energy 8. Reposition patient 9. Ensure adequate rest/sleep time Outcome: Progressing Note: Patient repositioned Q2H and as needed to balance activity and rest. Assessment completed forany needs on assistive devices/patient safe handling equipment. Collaboration with interdisciplinary teams considered. Problem: Communication Impairment Goal: Ability to express needs and understand communication Description: INTERVENTIONS 1. Assess patient's communication skills and ability to understand information 2. Provide alternate method of communication if needed i.e. ipad, sign board, pen/paper 3. Collaborate with Speech Therapy to develop effective communication strategies 4. Include patient/patient inside technical sales representative in decisions related to communication Outcome: Progressing Note: Patient able to voice concerns and needs at this time. Problem: Potential for Aspiration Goal: Patient's risk of aspiration is minimized Description: INTERVENTIONS 1. Assess and monitor vital signs, respiratory status, and labs (WBC) 2. Monitor for signs of aspiration (tachypnea, cough, rales, wheezing, cyanosis, fever) 3. Assess and monitor patient's ability to swallow 4. Place patient up in chair to eat if possible 5. Elevate head of bed 90 degrees to eat if unable to get patient up into chair 6. Supervise patient during oral intake 7. Instruct patient to take small bites 8. Instruct patient to take small single sips when taking liquids 9. Follow patient-specific strategies generated by speech pathologist 10. Complete bedside swallow screen if appropriate and take actions as indicated. 11. Administer prescribed medications and monitor effects Outcome: Progressing Note: Patient currently shows no signs of aspiration (tachypnea, cough, rales, wheezing, cyanosis, fever). Patient's ability to swallow is assessed and collaboration with speech therapy in place as needed. Bed is elevated at an appropriate degree (HOB 30 degrees and up). Problem: Anxiety Goal: Anxiety is at manageable level Description: Patient's goal is: INTERVENTIONS 1. Assess and monitor patient's anxiety level 2. Monitor for signs and symptoms of anxiety both physical and emotional (heart palpitations, chestpain, shortness of breath, headaches, nausea, feeling jumpy, restlessness, irritable, apprehensive) 3. Reorient/orient patient to unit/surroundings 4. Explain treatment plan 5. Explain tests/procedures prior to initiation 6. Encourage participation in care 7. Encourage verbalization of concerns/fears 8. Assess coping mechanisms 9. Assist in developing anxiety-reducing skills 10. Administer complimentary therapies 11. Manage patient's environment 12. Limit or eliminate stimulants such as caffeine and nicotine 13. Collaborate with ancillary departments 14. Include patient/patient inside technical sales representative in decisions related to anxiety Outcome: Progressing Note: Patient manages anxiety effectively. Collaboration with multidisciplinary team as needed for interventions. Problem: Inadequate Coping Goal: Demonstrates and verbalizes ability to cope effectively Description: Patient's goal is: INTERVENTIONS 1. Patient is able to verbalize feelings related to emotional state 2. Encourage verbalization of feelings, perceptions, fears, stressors, loss of loved ones 3. Encourage verbalization of problems out of their control 4. Encourage participation in care and self management 5. Inform patient of all treatment/care prior to providing care 6. Collaborate with pastoral/spiritual care, social media director, mental health counselor as needed. 7. Instruct patient on diversional activities such as physical activity, distraction, and deep breathing exercises to assist with coping 8. Involve patient's inside technical sales representative in care Outcome: Progressing Note: Patient is able to express feelings and needs. Patient is encouraged to voice any concerns. Patient is effectively coping with diagnosis and cooperating with care plan. Care continues. Problem: Potential for Compromised Skin Integrity Goal: Skin integrity is maintained or improved Description: Patient's goal is: INTERVENTIONS 1. Perform initial skin assessment on admission and as needed 2. Turn patient every 2 hours and PRN 3. Relieve pressure to bony prominences 4. Avoid shearing 5. Keep skin clean and dry 6. Alternate a full bath with partial baths for elderly 7. Apply lotion/moisturizer on skin 8. Monitor patient's hygiene practices 9. Float heels 10. Collaborate with interdisciplinary team and initiate plans and interventions as needed Outcome: Progressing Note: Patient repositioned Q2 hrs. Monitor for s/s of skin breakdown and treat/communicate with treatment team as needed. Goal: Patient's nutritional intake is adequate Description: Patient's goal is: INTERVENTIONS 1. Assess and monitor food intake and supplements, patient food preferences, nausea, vomiting, labs, oral cavity (gums, teeth, tongue, mucosa), proper denture fit, and cultural beliefs 2. Monitor for signs of hypoglycemia and hyperglycemia 3. Collaborate with interdisciplinary team and initiate plan and interventions as ordered 4. Monitor patient's weight 5. Assist patient with meals/food selection 6. Assist patient with eating 7. Allow adequate time for meals 8. Provide pleasant environment during mealtime 9. Increase social contact during mealtimes 10. Plan activities to conserve energy 11. Encourage/perform oral hygiene as appropriate 12. Encourage patient to take dietary supplement as ordered 13. Collaborate with clinical dramatic teacher 14. Include patient/ patient's inside technical sales representative in decisions related to nutrition Outcome: Progressing Note: Pt nutritional needs monitored and addressed as ordered by physician. Dietary recommendationsappreciated as ordered. Problem: Potential for Inadequate Tissue Perfusion - Venous Goal: Tissue perfusion is adequate - venous Description: Patient's goal is: INTERVENTIONS 1. Assess and monitor skin color and temperature, skin integrity, pulses, capillary refill, edema, pain in extremities and Homans' sign 2. Monitor for signs and symptoms (dyspnea, tachypnea, and tachycardia) 3. Encourage ambulation/activity per patient's tolerance and physician order 4. Elevate feet when in chair 5. Encourage patient to do ankle pump exercises 6. Apply anti-embolism stockings/devices as ordered Outcome: Progressing Note: Skin color and temperature, skin integrity, pulses, and capillary refill remain adequate for tissue perfusion. Ambulation/activity encouraged per patient's tolerance and physician order. Problem: Self Care Deficit Goal: Return ADL status to a safe level of function Description: Patient's goal is: INTERVENTIONS 1. Administer medication as ordered 2. Assess ADL deficits and provide assistive devices as needed 3. Obtain PT/OT consults as needed 4. Assist and instruct patient to increase activity and self care as tolerated Outcome: Progressing Note: Patient encouraged to participate in patient care, including hygiene. Collaborate with PT/OT as needed. Problem: Moderate - High Risk Fall Score Description: Conrad Fall Score of =/> 25 or indicated by [facility] Assessment Goal: Patient should be free from fall Description: Interventions: 1. Power to environment 2. Hourly rounds addressing the 4 P's (Pain, Positioning, Possessions, Potty) 3. Clear area of hazards (spills, clutter, electrical cords, unnecessary equipment) 4. Place equipment (bed & TV controls, call light, phone, urinal) within reach 5. Encourage patient to wear glasses and hearing aides as appropriate 6. Maintain bed in lowest position 7. Lock wheels on bed/wheelchair 8. Provide adequate lighting, including night light 9. Assess need for additional bedding, food/fluids, pain med's prior to sleep/routinely 10. Provide gripper slippers or personal non-skid footwear 11. Teach patient and patient inside technical sales representative to maintain environment for safety and engage in all aspects of fall prevention program 12. Remind patient to call for help before getting out of bed 13. Initiate bed/chair/exit alarms supportive devices as appropriate, (chair wedge, no-skid floor mat, raised edge mattress, hip protectors) 14. Locate patient bed assignment for optimal visualization 15. Evaluate and identify Safe Patient Handling Equipment needs 16. Provide supervision when out of bed or chair 17. Utilize gait belt as needed to assist with ambulation 18. Place adaptive equipment (cane, walker) within reach 19. Request patient inside technical sales representative bring adaptive equipment/mobility aids from home or obtain and provide as needed 20. Consult pharmacy regarding effects of med's affecting mobility, cognition, and alternatives 21. Obtain physician order for PT if risk factors associated with mobility are present 22. Obtain physician order for OT as appropriate 23. Utilize diversional activities 24. Educate patient and patient inside technical sales representative how to maintain a safe environment during visitationtimes (notify nurse prior to leaving bedside) 25. Consider appropriateness of medical or non-medical unit secretary 26. Set up voiding schedule as appropriate (every 2 hours) Outcome: Progressing Note: Fall risk assessment preformed and safety measures in place. Education given to family/patient. Care continues. * Plan of Care - Emily Byrne RN - 05/18/2025 8:47 PM EDT Problem: Pain Goal: Patient goal is pain score less than 4, able to rest, and participant in treatment plan as appropriate Description: INTERVENTIONS: 1. Encourage patient or legal inside technical sales representative to report early pain and ask for pain medicine when needed 2. Assess pain using appropriate pain scale and include the scale used when documenting 3. Administer analgesics based on type and severity of pain and evaluate response within appropriate time frame 4. Implement non-pharmacological measures as appropriate and evaluate response 5. Consider cultural and social influences on pain and pain management 6. Notify LIP if interventions ineffective or patient reports new pain 7. Monitor vital signs including pulse ox, end-tidal CO2 based on pain intervention 8. Reassess pain per policy 9. Teach patient or legal inside technical sales representative interventions for comforting Outcome: Progressing Note: Patient currently denies pain. Patient encouraged to communicate with staff if pain occurs. Will continue to monitor for changes. Problem: Safety Goal: Patient will be injury free during hospitalization Description: INTERVENTIONS: 1. Assess patient's risk for falls and implement fall prevention plan of care per policy 2. Provide and maintain a safe environment 3. Proper use of double Identifiers 4. Medication administration using the 5 rights 5. Hand hygiene 6. Specimens are labeled at the bedside 7. Instruct patient/ patient inside technical sales representative about use of safety devices 8. Include patient/ patient inside technical sales representative in decisions related to safety Outcome: Progressing Note: Patient safety maintained, call light in reach, area clear of hazards, hourly rounding continued, bed locked in lowest position, alarm on as applicable, non skid socks on, safety educated completed with patient/family, no injuries noted at this time. Problem: Infection Goal: Absence of infection during hospitalization Description: INTERVENTIONS 1. Assess and monitor for signs and symptoms of infection. 2. Monitor lab/diagnostic results. 3. Monitor all insertion sites i.e., indwelling lines, tubes and drains. 4. Monitor endotracheal (as able) and nasal secretions for changes in amount and color. 5. Administer medications as ordered. 6. Instruct and encourage patient and family to use good hand hygiene technique. 7. Identify and instruct patient/patient inside technical sales representative in use of appropriate isolation precautionsfor identified infection/symptoms. 8. Provide and discuss with patient/patient inside technical sales representative on educational MDRO sheet. 9. Encourage and monitor nutritional status daily and consult dramatic teacher if indicated. 10. Implement neutropenic guidelines as needed. Outcome: Progressing Note: Currently being treated for infection. Will continue to monitor for new signs and symptoms. Problem: Knowledge Deficit Goal: Patient/patient inside technical sales representative demonstrates understanding of disease process, treatment plan,medications, and discharge instructions Description: INTERVENTIONS 1. Complete learning assessment and assess knowledge base 2. Provide teaching at level of understanding 3. Provide teaching via preferred learning method(s) Outcome: Progressing Note: Care plan discussed & goals for shift set with patient input appreciated. All questions answered. Problem: Discharge Planning Goal: Discharge to post-acute care, other facility, or home with appropriate resources Description: Patient's goal is: INTERVENTIONS 1. Conduct assessment to determine patient/family and health care team treatment goals, and need for post-acute services based on payer coverage, community resources, and patient preferences, and barriers to discharge 2. Coordinate with Social work, Care Navigation, and Utilization Review to arrange appropriate level of services according to patient's needs based on patient preference and payer coverage in collaboration with the physician and health care team 3. Address psychosocial, clinical, and financial barriers to discharge as identified in assessment in conjunction with the patient/family and health care team 4. Consult appropriate ancillary services (i.e.. PT/OT/ST, etc) as needed 5. Communicate with and update the patient/family, physician, and health care team regarding progress on the discharge plan 6. Identify discharge learning needs (meds, wound care, etc). 7. Arrange for needed discharge transportation as appropriate Outcome: Progressing Note: Discharge planning in progress with appropriate multidisciplinary teams. Problem: Neurological Deficit Goal: Neurological status is stable or improving Description: Patient's goal is: INTERVENTIONS 1. Complete Neurological assessment as indicated/ordered 2. Initiate measures to prevent increased intracranial pressure 3. Monitor and assess patient's level of consciousness, motor function, sensory function, and levelof assistance needed for ADLs 4. Monitor and report changes from baseline 5. Maintain blood pressure and fluid volume within ordered parameters to optimize cerebral perfusion and minimize risk of hemorrhage 6. Monitor labs and diagnostic tests 7. Administer anti-seizure medications as ordered 8. Maintain airway, patient safety and administer oxygen as ordered 9. Monitor patient for seizure activity, document and report duration and description of seizure toLIP 10. If seizure occurs, turn patient to side and suction secretions as needed 11. Reorient patient post seizure 12. Seizure pads on all 4 side rails 13. Instruct patient/family to notify RN of any seizure activity 14. Instruct patient/family to call for assistance with activity based on assessment 15. Utilize bleeding precautions if thrombolytic given Outcome: Progressing Note: Patient's level of consciousness, motor function, sensory function, and level of assistance needed for ADLs all monitored and assessed at this time. Changes from baseline reported to necessary personal when needed. Patients care is optimized for cerebral perfusion accordingly to patients orders. Problem: Activity Intolerance/Impaired Mobility Goal: Mobility/activity is maintained at optimum level for patient Description: Patient's goal is: INTERVENTIONS 1. Assess and monitor patient barriers to mobility and need for assistive/adaptive devices 2. Assess patient's emotional response to limitations 3. Collaborate with interdisciplinary teams and initiate plans and interventions as ordered 4. Encourage independent activity per tolerance 5. Maintain proper body alignment 6. Perform active/passive ROM as tolerated/ordered 7. Coordinate activities to conserve energy 8. Reposition patient 9. Ensure adequate rest/sleep time Outcome: Progressing Note: Patient repositioned Q2H and as needed to balance activity and rest. Assessment completed forany needs on assistive devices/patient safe handling equipment. Collaboration with interdisciplinary teams considered. Problem: Potential for Compromised Skin Integrity Goal: Skin integrity is maintained or improved Description: Patient's goal is: INTERVENTIONS 1. Perform initial skin assessment on admission and as needed 2. Turn patient every 2 hours and PRN 3. Relieve pressure to bony prominences 4. Avoid shearing 5. Keep skin clean and dry 6. Alternate a full bath with partial baths for elderly 7. Apply lotion/moisturizer on skin 8. Monitor patient's hygiene practices 9. Float heels 10. Collaborate with interdisciplinary team and initiate plans and interventions as needed Outcome: Progressing Note: Patient repositioned Q2 hrs. Monitor for s/s of skin breakdown and treat/communicate with treatment team as needed. Goal: Patient's nutritional intake is adequate Description: Patient's goal is: INTERVENTIONS 1. Assess and monitor food intake and supplements, patient food preferences, nausea, vomiting, labs, oral cavity (gums, teeth, tongue, mucosa), proper denture fit, and cultural beliefs 2. Monitor for signs of hypoglycemia and hyperglycemia 3. Collaborate with interdisciplinary team and initiate plan and interventions as ordered 4. Monitor patient's weight 5. Assist patient with meals/food selection 6. Assist patient with eating 7. Allow adequate time for meals 8. Provide pleasant environment during mealtime 9. Increase social contact during mealtimes 10. Plan activities to conserve energy 11. Encourage/perform oral hygiene as appropriate 12. Encourage patient to take dietary supplement as ordered 13. Collaborate with clinical dramatic teacher 14. Include patient/ patient's inside technical sales representative in decisions related to nutrition Outcome: Progressing Note: Pt nutritional needs monitored and addressed as ordered by physician. Dietary recommendationsappreciated as ordered. Problem: Moderate - High Risk Fall Score Description: Conrad Fall Score of =/> 25 or indicated by [facility] Assessment Goal: Patient should be free from fall Description: Interventions: 1. Power to environment 2. Hourly rounds addressing the 4 P's (Pain, Positioning, Possessions, Potty) 3. Clear area of hazards (spills, clutter, electrical cords, unnecessary equipment) 4. Place equipment (bed & TV controls, call light, phone, urinal) within reach 5. Encourage patient to wear glasses and hearing aides as appropriate 6. Maintain bed in lowest position 7. Lock wheels on bed/wheelchair 8. Provide adequate lighting, including night light 9. Assess need for additional bedding, food/fluids, pain med's prior to sleep/routinely 10. Provide gripper slippers or personal non-skid footwear 11. Teach patient and patient inside technical sales representative to maintain environment for safety and engage in all aspects of fall prevention program 12. Remind patient to call for help before getting out of bed 13. Initiate bed/chair/exit alarms supportive devices as appropriate, (chair wedge, no-skid floor mat, raised edge mattress, hip protectors) 14. Locate patient bed assignment for optimal visualization 15. Evaluate and identify Safe Patient Handling Equipment needs 16. Provide supervision when out of bed or chair 17. Utilize gait belt as needed to assist with ambulation 18. Place adaptive equipment (cane, walker) within reach 19. Request patient inside technical sales representative bring adaptive equipment/mobility aids from home or obtain and provide as needed 20. Consult pharmacy regarding effects of med's affecting mobility, cognition, and alternatives 21. Obtain physician order for PT if risk factors associated with mobility are present 22. Obtain physician order for OT as appropriate 23. Utilize diversional activities 24. Educate patient and patient inside technical sales representative how to maintain a safe environment during visitationtimes (notify nurse prior to leaving bedside) 25. Consider appropriateness of medical or non-medical unit secretary 26. Set up voiding schedule as appropriate (every 2 hours) Outcome: Progressing Note: Fall risk assessment preformed and safety measures in place. Education given to family/patient. Will continue to monitor. * PT/OT/MARKETING PROGRAMS MANAGER - Julienne Jolley CCC-MARKETING PROGRAMS MANAGER - 05/18/2025 2:48 PM EDT Speech Therapy Dysphagia Treatment Note Assessment: Pt reassessed this date for safety with PO intake. Pt is much more alert/cooperative and tolerated all consistencies assessed without any overt s/s of aspiration. OK for a regular diet with thin liquids at this time. Will continue to monitor. Current Diet Tolerance: NPO Progress: improving Pain Assessment Pain Assessment: No/denies pain Recommendations Diet: Regular diet with thin liquids Discharge: Continued ST services Precautions Aspiration Plan: Plan of Care: continue with current plan of care Continue with Current Diet: upgrade Diet: Regular Liquids: Level 0 Thin Safety Strategies: medications in applesauce and small sips/bites, 1 at a time Subjective Setting: bedside Arrival Status: awake and alert Mental Status: pleasant Therapy Tolerance: good Change in Medical Status: no Received Recent Medications: no Objective NMES: No Diet Trials: Level 0 Thin, Level 4 Pureed , and Regular Outcome: tolerated without s/s aspiration Plan Speech Therapy Care Plan Speech Therapy Care Plan (Active) Template: - Dysphagia Problem: Swallowing Dates: Start: 05/17/25 Disciplines: MARKETING PROGRAMS MANAGER Goal: LTG: Patient will maintain adequate nutrition/ hydration with optimum safety and efficiency of swallowing function of oral intake without overt signs/symptoms of aspiration for the highest appropriate diet level Dates: Start: 05/17/25 Expected End: 06/17/25 Disciplines: MARKETING PROGRAMS MANAGER Goal: STG: Patient will tolerate therapeutic feeding trials of advanced textures with 90% accuracy with minimal cueing Dates: Start: 05/17/25 Expected End: 06/17/25 Disciplines: MARKETING PROGRAMS MANAGER Outcomes Date/Time User Outcome 05/18/25 1451 Julienne Jolley CCC-MARKETING PROGRAMS MANAGER Progressing Template: - Rehab Speech Problem: Auditory Comprehension Dates: Start: 05/17/25 Disciplines: MARKETING PROGRAMS MANAGER Goal: LTG: Patient will comprehend communication related to basic medical and social needs and utilize compensatory strategies to maintain safety in a functional living environment Dates: Start: 05/17/25 Expected End: 06/17/25 Disciplines: MARKETING PROGRAMS MANAGER Goal: STG: Patient will answer simple yes/no questions with 90% accuracy with minimal cueing. Dates: Start: 05/17/25 Expected End: 06/17/25 Disciplines: MARKETING PROGRAMS MANAGER Problem: Verbal Expression Dates: Start: 05/17/25 Disciplines: MARKETING PROGRAMS MANAGER Goal: LTG: Patient will utilize compensatory strategies to communicate wants and needs effectively to different conversational partners, maintain safety and participate socially in a functional living environment Dates: Start: 05/17/25 Expected End: 06/17/25 Disciplines: MARKETING PROGRAMS MANAGER Goal: STG: Patient will complete simple naming tasks at word level (objects, pictures) in activities of daily living with 90% accuracy with minimal cueing Dates: Start: 05/17/25 Expected End: 06/17/25 Disciplines: MARKETING PROGRAMS MANAGER Speech Therapy Care Plan (Resolved) There are no resolved problems. Principal Problem: ICH (intracerebral hemorrhage) ([facility]) * Plan of Care - Emily Byrne RN - 05/17/2025 9:23 PM EDT Problem: Pain Goal: Patient goal is pain score less than 4, able to rest, and participant in treatment plan as appropriate Description: INTERVENTIONS: 1. Encourage patient or legal inside technical sales representative to report early pain and ask for pain medicine when needed 2. Assess pain using appropriate pain scale and include the scale used when documenting 3. Administer analgesics based on type and severity of pain and evaluate response within appropriate time frame 4. Implement non-pharmacological measures as appropriate and evaluate response 5. Consider cultural and social influences on pain and pain management 6. Notify LIP if interventions ineffective or patient reports new pain 7. Monitor vital signs including pulse ox, end-tidal CO2 based on pain intervention 8. Reassess pain per policy 9. Teach patient or legal inside technical sales representative interventions for comforting Outcome: Progressing Note: Patient appears to be in no acute distress. FLACC pain scale performed. Continue to monitor. Problem: Safety Goal: Patient will be injury free during hospitalization Description: INTERVENTIONS: 1. Assess patient's risk for falls and implement fall prevention plan of care per policy 2. Provide and maintain a safe environment 3. Proper use of double Identifiers 4. Medication administration using the 5 rights 5. Hand hygiene 6. Specimens are labeled at the bedside 7. Instruct patient/ patient inside technical sales representative about use of safety devices 8. Include patient/ patient inside technical sales representative in decisions related to safety Outcome: Progressing Note: Patient safety maintained, call light in reach, area clear of hazards, hourly rounding continued, bed locked in lowest position, alarm on as applicable, non skid socks on, safety educated completed with patient/family, no injuries noted at this time. Problem: Infection Goal: Absence of infection during hospitalization Description: INTERVENTIONS 1. Assess and monitor for signs and symptoms of infection. 2. Monitor lab/diagnostic results. 3. Monitor all insertion sites i.e., indwelling lines, tubes and drains. 4. Monitor endotracheal (as able) and nasal secretions for changes in amount and color. 5. Administer medications as ordered. 6. Instruct and encourage patient and family to use good hand hygiene technique. 7. Identify and instruct patient/patient inside technical sales representative in use of appropriate isolation precautionsfor identified infection/symptoms. 8. Provide and discuss with patient/patient inside technical sales representative on educational MDRO sheet. 9. Encourage and monitor nutritional status daily and consult dramatic teacher if indicated. 10. Implement neutropenic guidelines as needed. Outcome: Progressing Note: Currently being treated for infection. Will continue to monitor for new signs and symptoms. Problem: Knowledge Deficit Goal: Patient/patient inside technical sales representative demonstrates understanding of disease process, treatment plan,medications, and discharge instructions Description: INTERVENTIONS 1. Complete learning assessment and assess knowledge base 2. Provide teaching at level of understanding 3. Provide teaching via preferred learning method(s) Outcome: Progressing Note: Care plan discussed & goals for shift set with patient/family input appreciated. All questions answered. Problem: Discharge Planning Goal: Discharge to post-acute care, other facility, or home with appropriate resources Description: Patient's goal is: INTERVENTIONS 1. Conduct assessment to determine patient/family and health care team treatment goals, and need for post-acute services based on payer coverage, community resources, and patient preferences, and barriers to discharge 2. Coordinate with Social work, Care Navigation, and Utilization Review to arrange appropriate level of services according to patient's needs based on patient preference and payer coverage in collaboration with the physician and health care team 3. Address psychosocial, clinical, and financial barriers to discharge as identified in assessment in conjunction with the patient/family and health care team 4. Consult appropriate ancillary services (i.e.. PT/OT/ST, etc) as needed 5. Communicate with and update the patient/family, physician, and health care team regarding progress on the discharge plan 6. Identify discharge learning needs (meds, wound care, etc). 7. Arrange for needed discharge transportation as appropriate Outcome: Progressing Note: Discharge planning in progress with appropriate multidisciplinary teams. Problem: Neurological Deficit Goal: Neurological status is stable or improving Description: Patient's goal is: INTERVENTIONS 1. Complete Neurological assessment as indicated/ordered 2. Initiate measures to prevent increased intracranial pressure 3. Monitor and assess patient's level of consciousness, motor function, sensory function, and levelof assistance needed for ADLs 4. Monitor and report changes from baseline 5. Maintain blood pressure and fluid volume within ordered parameters to optimize cerebral perfusion and minimize risk of hemorrhage 6. Monitor labs and diagnostic tests 7. Administer anti-seizure medications as ordered 8. Maintain airway, patient safety and administer oxygen as ordered 9. Monitor patient for seizure activity, document and report duration and description of seizure toLIP 10. If seizure occurs, turn patient to side and suction secretions as needed 11. Reorient patient post seizure 12. Seizure pads on all 4 side rails 13. Instruct patient/family to notify RN of any seizure activity 14. Instruct patient/family to call for assistance with activity based on assessment 15. Utilize bleeding precautions if thrombolytic given Outcome: Progressing Note: Patient's level of consciousness, motor function, sensory function, and level of assistance needed for ADLs all monitored and assessed at this time. Changes from baseline reported to necessary personal when needed. Patients care is optimized for cerebral perfusion accordingly to patients orders. Problem: Activity Intolerance/Impaired Mobility Goal: Mobility/activity is maintained at optimum level for patient Description: Patient's goal is: INTERVENTIONS 1. Assess and monitor patient barriers to mobility and need for assistive/adaptive devices 2. Assess patient's emotional response to limitations 3. Collaborate with interdisciplinary teams and initiate plans and interventions as ordered 4. Encourage independent activity per tolerance 5. Maintain proper body alignment 6. Perform active/passive ROM as tolerated/ordered 7. Coordinate activities to conserve energy 8. Reposition patient 9. Ensure adequate rest/sleep time Outcome: Progressing Note: Patient repositioned Q2H and as needed to balance activity and rest. Assessment completed forany needs on assistive devices/patient safe handling equipment. Collaboration with interdisciplinary teams considered. Problem: Potential for Compromised Skin Integrity Goal: Skin integrity is maintained or improved Description: Patient's goal is: INTERVENTIONS 1. Perform initial skin assessment on admission and as needed 2. Turn patient every 2 hours and PRN 3. Relieve pressure to bony prominences 4. Avoid shearing 5. Keep skin clean and dry 6. Alternate a full bath with partial baths for elderly 7. Apply lotion/moisturizer on skin 8. Monitor patient's hygiene practices 9. Float heels 10. Collaborate with interdisciplinary team and initiate plans and interventions as needed Outcome: Progressing Note: Patient repositioned Q2 hrs. Monitor for s/s of skin breakdown and treat/communicate with treatment team as needed. Goal: Patient's nutritional intake is adequate Description: Patient's goal is: INTERVENTIONS 1. Assess and monitor food intake and supplements, patient food preferences, nausea, vomiting, labs, oral cavity (gums, teeth, tongue, mucosa), proper denture fit, and cultural beliefs 2. Monitor for signs of hypoglycemia and hyperglycemia 3. Collaborate with interdisciplinary team and initiate plan and interventions as ordered 4. Monitor patient's weight 5. Assist patient with meals/food selection 6. Assist patient with eating 7. Allow adequate time for meals 8. Provide pleasant environment during mealtime 9. Increase social contact during mealtimes 10. Plan activities to conserve energy 11. Encourage/perform oral hygiene as appropriate 12. Encourage patient to take dietary supplement as ordered 13. Collaborate with clinical dramatic teacher 14. Include patient/ patient's inside technical sales representative in decisions related to nutrition Outcome: Progressing Note: Pt nutritional needs monitored and addressed as ordered by physician. Dietary recommendationsappreciated as ordered. Problem: Moderate - High Risk Fall Score Description: Conrad Fall Score of =/> 25 or indicated by [facility] Assessment Goal: Patient should be free from fall Description: Interventions: 1. Power to environment 2. Hourly rounds addressing the 4 P's (Pain, Positioning, Possessions, Potty) 3. Clear area of hazards (spills, clutter, electrical cords, unnecessary equipment) 4. Place equipment (bed & TV controls, call light, phone, urinal) within reach 5. Encourage patient to wear glasses and hearing aides as appropriate 6. Maintain bed in lowest position 7. Lock wheels on bed/wheelchair 8. Provide adequate lighting, including night light 9. Assess need for additional bedding, food/fluids, pain med's prior to sleep/routinely 10. Provide gripper slippers or personal non-skid footwear 11. Teach patient and patient inside technical sales representative to maintain environment for safety and engage in all aspects of fall prevention program 12. Remind patient to call for help before getting out of bed 13. Initiate bed/chair/exit alarms supportive devices as appropriate, (chair wedge, no-skid floor mat, raised edge mattress, hip protectors) 14. Locate patient bed assignment for optimal visualization 15. Evaluate and identify Safe Patient Handling Equipment needs 16. Provide supervision when out of bed or chair 17. Utilize gait belt as needed to assist with ambulation 18. Place adaptive equipment (cane, walker) within reach 19. Request patient inside technical sales representative bring adaptive equipment/mobility aids from home or obtain and provide as needed 20. Consult pharmacy regarding effects of med's affecting mobility, cognition, and alternatives 21. Obtain physician order for PT if risk factors associated with mobility are present 22. Obtain physician order for OT as appropriate 23. Utilize diversional activities 24. Educate patient and patient inside technical sales representative how to maintain a safe environment during visitationtimes (notify nurse prior to leaving bedside) 25. Consider appropriateness of medical or non-medical unit secretary 26. Set up voiding schedule as appropriate (every 2 hours) Outcome: Progressing Note: Fall risk assessment preformed and safety measures in place. Education given to family/patient. Will continue to monitor. * PT/OT/MARKETING PROGRAMS MANAGER - Julienne Jolley CCC-MARKETING PROGRAMS MANAGER - 05/17/2025 9:55 AM EDT Speech Therapy Evaluation Bedside Swallow/Feeding Evaluation Speech & Language Cognitive Evaluation Discharge Recommendations for Safe Patient Transition MARKETING PROGRAMS MANAGER Therapy Recommendations: Continue ST services Recommendations Diet Level: NPO Liquid Level: No liquids Impressions Oral Dysphagia: Moderate Pharyngeal Dysphagia Suspected: Yes Plan Frequency: 1-2days/week Duration: Until discharge Need for skilled Speech Language Pathology Services to address deficits in feeding/swallowing due to a status decline resulting from trauma s/p fall. Pt uncooperative throughout exam, refusing PO trials and unable to elicit swallow response at this time. Will follow along and reassess as appropriate. Prognosis Services: Skilled MARKETING PROGRAMS MANAGER services to address above deficits Prognosis/Potential: Good Considerations: Previous level of function Discharge Recommendations for Safe Patient Transition MARKETING PROGRAMS MANAGER Therapy Recommendations: Continue ST services Impressions Receptive Language: Severe Expressive Language: Severe Cognitive Linguistic: Severe Plan Frequency: 1-2days/week Duration: Until discharge Treatments/Modalities: Strategies/techniques training Need for skilled Speech Language Pathology Services to address deficits in speech/language/cognition due to a status decline resulting from trauma s/p fall. Prognosis Services: Skilled MARKETING PROGRAMS MANAGER services to address the above deficits Prognosis/Potential: Good Considerations: Previous level of function Assessment Bedside Swallow/Feeding Eval Speech & Language Cognitive Eval Baseline Assessment Additional Testing Results: Computed Tomography, Chest X-Ray Temperature Spikes Noted: No History of Intubation: No Behavior/Cognition: Confused, Uncooperative, Unable to follow directions Patient Positioning: Upright in bed Baseline Vocal Quality: (PERLA) Volitional Cough: Absent Volitional Swallow: Absent Allergies Marked As Reviewed: Complete Oral/Motor Overall Oral/Motor Status: Exceptions to Within Functional Limits Labial ROM: Reduced Labial Strength: Reduced Labial Coordination: Reduced Lingual ROM: Reduced Lingual Strength: Reduced Lingual Coordination: Reduced Vocal Quality: (PERLA) Intelligibility: Unable to assess Consistencies Assessed: Yes Level 0 Thin Presentation: Spoon, Straw Oral: Anterior spillage, Decreased labial seal Pharyngeal: Absent swallow Pain Assessment Pain Assessment: (FLACC) FLACC (Face, Legs, Activity, Crying, Consolability) Pain Rating: FLACC (Rest) - Face: Occasional grimace or frown, withdrawn, disinterested Pain Rating: FLACC (Rest) - Legs: Normal position or relaxed Pain Rating: FLACC (Rest) - Activity: Lying quietly, normal position, moves easily Pain Rating: FLACC (Rest) - Cry: No cry (awake or asleep) Pain Rating: FLACC (Rest) - Consolability: Content, relaxed Score: FLACC (Rest): 1 Oral/Motor Overall Oral/Motor Status: Exceptions to Within Functional Limits Labial ROM: Reduced Labial Strength: Reduced Labial Coordination: Reduced Lingual ROM: Reduced Lingual Strength: Reduced Lingual Coordination: Reduced Vocal Quality: (PERLA) Intelligibility: Unable to assess Auditory Comprehension Overall Auditory Comphension Status: Exceptions to Within Functional Limits Yes/No Questions: Exceptions to WFL Basic Questions: Severe Commands: Exceptions to WFL One Step Basic Commands: Severe Conversation: Nonfunctional Expression Overall Expression Status: Exceptions to Within Functional Limits Primary Mode of Expression: Verbal Verbal Expression Overall Verbal Expression Status: Exceptions to Within Functional Limits Initiation: Impairment Automatics: Impairment Repetition: Impairment Naming: Impairment Confrontation: Severe Speech Production Overall Speech Production: Unable to assess High Level Language Overall High Level Language Status: Unable to assess Cognition Overall Cognitive Status: Exceptions to Within Functional Limits Arousal/Alertness: Inconsistent responses to stimuli Attention Span: Difficulty attending to directions Orientation Level: Unable to assess Following Commands: (Does not follow commands) Pain Assessment Pain Assessment: (FLACC) FLACC (Face, Legs, Activity, Crying, Consolability) Pain Rating: FLACC (Rest) - Face: Occasional grimace or frown, withdrawn, disinterested Pain Rating: FLACC (Rest) - Legs: Normal position or relaxed Pain Rating: FLACC (Rest) - Activity: Lying quietly, normal position, moves easily Pain Rating: FLACC (Rest) - Cry: No cry (awake or asleep) Pain Rating: FLACC (Rest) - Consolability: Content, relaxed Score: FLACC (Rest): 1 Plan Diagnosis Code Swallowing: I69.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 Speech Therapy Care Plan Speech Therapy Care Plan (Active) Template: ST - Dysphagia Problem: Swallowing Dates: Start: 05/17/25 Disciplines: MARKETING PROGRAMS MANAGER Goal: LTG: Patient will maintain adequate nutrition/ hydration with optimum safety and efficiency of swallowing function of oral intake without overt signs/symptoms of aspiration for the highest appropriate diet level Dates: Start: 05/17/25 Expected End: 06/17/25 Disciplines: MARKETING PROGRAMS MANAGER Goal: STG: Patient will tolerate therapeutic feeding trials of advanced textures with 90% accuracy with minimal cueing Dates: Start: 05/17/25 Expected End: 06/17/25 Disciplines: MARKETING PROGRAMS MANAGER Template: ST - Rehab Speech Problem: Auditory Comprehension Dates: Start: 05/17/25 Disciplines: MARKETING PROGRAMS MANAGER Goal: LTG: Patient will comprehend communication related to basic medical and social needs and utilize compensatory strategies to maintain safety in a functional living environment Dates: Start: 05/17/25 Expected End: 06/17/25 Disciplines: MARKETING PROGRAMS MANAGER Goal: STG: Patient will answer simple yes/no questions with 90% accuracy with minimal cueing. Dates: Start: 05/17/25 Expected End: 06/17/25 Disciplines: MARKETING PROGRAMS MANAGER Problem: Verbal Expression Dates: Start: 05/17/25 Disciplines: MARKETING PROGRAMS MANAGER Goal: LTG: Patient will utilize compensatory strategies to communicate wants and needs effectively to different conversational partners, maintain safety and participate socially in a functional living environment Dates: Start: 05/17/25 Expected End: 06/17/25 Disciplines: MARKETING PROGRAMS MANAGER Goal: STG: Patient will complete simple naming tasks at word level (objects, pictures) in activities of daily living with 90% accuracy with minimal cueing Dates: Start: 05/17/25 Expected End: 06/17/25 Disciplines: MARKETING PROGRAMS MANAGER Speech Therapy Care Plan (Resolved) There are no resolved problems. Principal Problem: ICH (intracerebral hemorrhage) ([facility]) * Plan of Care - Young Parr RN - 05/17/2025 9:21 AM EDT Problem: Pain Goal: Patient goal is pain score less than 4, able to rest, and participant in treatment plan as appropriate Description: INTERVENTIONS: 1. Encourage patient or legal inside technical sales representative to report early pain and ask for pain medicine when needed 2. Assess pain using appropriate pain scale and include the scale used when documenting 3. Administer analgesics based on type and severity of pain and evaluate response within appropriate time frame 4. Implement non-pharmacological measures as appropriate and evaluate response 5. Consider cultural and social influences on pain and pain management 6. Notify LIP if interventions ineffective or patient reports new pain 7. Monitor vital signs including pulse ox, end-tidal CO2 based on pain intervention 8. Reassess pain per policy 9. Teach patient or legal inside technical sales representative interventions for comforting Outcome: Progressing Note: Patient has PRN pain medication. Checking with every assessment. Monitoring vitals. Problem: Safety Goal: Patient will be injury free during hospitalization Description: INTERVENTIONS: 1. Assess patient's risk for falls and implement fall prevention plan of care per policy 2. Provide and maintain a safe environment 3. Proper use of double Identifiers 4. Medication administration using the 5 rights 5. Hand hygiene 6. Specimens are labeled at the bedside 7. Instruct patient/ patient inside technical sales representative about use of safety devices 8. Include patient/ patient inside technical sales representative in decisions related to safety Outcome: Progressing Note: Patient safety maintained, call light in reach, area clear of hazards, hourly rounding continued, bed locked in lowest position, alarm on as applicable, non skid socks on, safety educated completed with patient/family, no injuries noted at this time. Problem: Infection Goal: Absence of infection during hospitalization Description: INTERVENTIONS 1. Assess and monitor for signs and symptoms of infection. 2. Monitor lab/diagnostic results. 3. Monitor all insertion sites i.e., indwelling lines, tubes and drains. 4. Monitor endotracheal (as able) and nasal secretions for changes in amount and color. 5. Administer medications as ordered. 6. Instruct and encourage patient and family to use good hand hygiene technique. 7. Identify and instruct patient/patient inside technical sales representative in use of appropriate isolation precautionsfor identified infection/symptoms. 8. Provide and discuss with patient/patient inside technical sales representative on educational MDRO sheet. 9. Encourage and monitor nutritional status daily and consult dramatic teacher if indicated. 10. Implement neutropenic guidelines as needed. Outcome: Progressing Note: Continue treatment Problem: Knowledge Deficit Goal: Patient/patient inside technical sales representative demonstrates understanding of disease process, treatment plan,medications, and discharge instructions Description: INTERVENTIONS 1. Complete learning assessment and assess knowledge base 2. Provide teaching at level of understanding 3. Provide teaching via preferred learning method(s) Outcome: Progressing Note: Continue to educate Problem: Discharge Planning Goal: Discharge to post-acute care, other facility, or home with appropriate resources Description: Patient's goal is: INTERVENTIONS 1. Conduct assessment to determine patient/family and health care team treatment goals, and need for post-acute services based on payer coverage, community resources, and patient preferences, and barriers to discharge 2. Coordinate with Social work, Care Navigation, and Utilization Review to arrange appropriate level of services according to patient's needs based on patient preference and payer coverage in collaboration with the physician and health care team 3. Address psychosocial, clinical, and financial barriers to discharge as identified in assessment in conjunction with the patient/family and health care team 4. Consult appropriate ancillary services (i.e.. PT/OT/ST, etc) as needed 5. Communicate with and update the patient/family, physician, and health care team regarding progress on the discharge plan 6. Identify discharge learning needs (meds, wound care, etc). 7. Arrange for needed discharge transportation as appropriate Outcome: Progressing Note: Patient and family are aware of plan of care and discharge plans. Will continue to monitor. Problem: Neurological Deficit Goal: Neurological status is stable or improving Description: Patient's goal is: INTERVENTIONS 1. Complete Neurological assessment as indicated/ordered 2. Initiate measures to prevent increased intracranial pressure 3. Monitor and assess patient's level of consciousness, motor function, sensory function, and levelof assistance needed for ADLs 4. Monitor and report changes from baseline 5. Maintain blood pressure and fluid volume within ordered parameters to optimize cerebral perfusion and minimize risk of hemorrhage 6. Monitor labs and diagnostic tests 7. Administer anti-seizure medications as ordered 8. Maintain airway, patient safety and administer oxygen as ordered 9. Monitor patient for seizure activity, document and report duration and description of seizure toLIP 10. If seizure occurs, turn patient to side and suction secretions as needed 11. Reorient patient post seizure 12. Seizure pads on all 4 side rails 13. Instruct patient/family to notify RN of any seizure activity 14. Instruct patient/family to call for assistance with activity based on assessment 15. Utilize bleeding precautions if thrombolytic given Outcome: Progressing Note: Continue neuro checks Problem: Activity Intolerance/Impaired Mobility Goal: Mobility/activity is maintained at optimum level for patient Description: Patient's goal is: INTERVENTIONS 1. Assess and monitor patient barriers to mobility and need for assistive/adaptive devices 2. Assess patient's emotional response to limitations 3. Collaborate with interdisciplinary teams and initiate plans and interventions as ordered 4. Encourage independent activity per tolerance 5. Maintain proper body alignment 6. Perform active/passive ROM as tolerated/ordered 7. Coordinate activities to conserve energy 8. Reposition patient 9. Ensure adequate rest/sleep time Outcome: Progressing Note: Encourage Problem: Communication Impairment Goal: Ability to express needs and understand communication Description: INTERVENTIONS 1. Assess patient's communication skills and ability to understand information 2. Provide alternate method of communication if needed i.e. ipad, sign board, pen/paper 3. Collaborate with Speech Therapy to develop effective communication strategies 4. Include patient/patient inside technical sales representative in decisions related to communication Outcome: Progressing Note: Continue to educate Problem: Potential for Aspiration Goal: Patient's risk of aspiration is minimized Description: INTERVENTIONS 1. Assess and monitor vital signs, respiratory status, and labs (WBC) 2. Monitor for signs of aspiration (tachypnea, cough, rales, wheezing, cyanosis, fever) 3. Assess and monitor patient's ability to swallow 4. Place patient up in chair to eat if possible 5. Elevate head of bed 90 degrees to eat if unable to get patient up into chair 6. Supervise patient during oral intake 7. Instruct patient to take small bites 8. Instruct patient to take small single sips when taking liquids 9. Follow patient-specific strategies generated by speech pathologist 10. Complete bedside swallow screen if appropriate and take actions as indicated. 11. Administer prescribed medications and monitor effects Outcome: Progressing Note: Speech to eval Problem: Anxiety Goal: Anxiety is at manageable level Description: Patient's goal is: INTERVENTIONS 1. Assess and monitor patient's anxiety level 2. Monitor for signs and symptoms of anxiety both physical and emotional (heart palpitations, chestpain, shortness of breath, headaches, nausea, feeling jumpy, restlessness, irritable, apprehensive) 3. Reorient/orient patient to unit/surroundings 4. Explain treatment plan 5. Explain tests/procedures prior to initiation 6. Encourage participation in care 7. Encourage verbalization of concerns/fears 8. Assess coping mechanisms 9. Assist in developing anxiety-reducing skills 10. Administer complimentary therapies 11. Manage patient's environment 12. Limit or eliminate stimulants such as caffeine and nicotine 13. Collaborate with ancillary departments 14. Include patient/patient inside technical sales representative in decisions related to anxiety Outcome: Progressing Note: Support Problem: Inadequate Coping Goal: Demonstrates and verbalizes ability to cope effectively Description: Patient's goal is: INTERVENTIONS 1. Patient is able to verbalize feelings related to emotional state 2. Encourage verbalization of feelings, perceptions, fears, stressors, loss of loved ones 3. Encourage verbalization of problems out of their control 4. Encourage participation in care and self management 5. Inform patient of all treatment/care prior to providing care 6. Collaborate with pastoral/spiritual care, social media director, mental health counselor as needed. 7. Instruct patient on diversional activities such as physical activity, distraction, and deep breathing exercises to assist with coping 8. Involve patient's inside technical sales representative in care Outcome: Progressing Note: na Problem: Potential for Compromised Skin Integrity Goal: Skin integrity is maintained or improved Description: Patient's goal is: INTERVENTIONS 1. Perform initial skin assessment on admission and as needed 2. Turn patient every 2 hours and PRN 3. Relieve pressure to bony prominences 4. Avoid shearing 5. Keep skin clean and dry 6. Alternate a full bath with partial baths for elderly 7. Apply lotion/moisturizer on skin 8. Monitor patient's hygiene practices 9. Float heels 10. Collaborate with interdisciplinary team and initiate plans and interventions as needed Outcome: Progressing Note: Patient is turned every 2 hours and as needed. Skin is clean and dry. Will continue to monitor. Goal: Patient's nutritional intake is adequate Description: Patient's goal is: INTERVENTIONS 1. Assess and monitor food intake and supplements, patient food preferences, nausea, vomiting, labs, oral cavity (gums, teeth, tongue, mucosa), proper denture fit, and cultural beliefs 2. Monitor for signs of hypoglycemia and hyperglycemia 3. Collaborate with interdisciplinary team and initiate plan and interventions as ordered 4. Monitor patient's weight 5. Assist patient with meals/food selection 6. Assist patient with eating 7. Allow adequate time for meals 8. Provide pleasant environment during mealtime 9. Increase social contact during mealtimes 10. Plan activities to conserve energy 11. Encourage/perform oral hygiene as appropriate 12. Encourage patient to take dietary supplement as ordered 13. Collaborate with clinical dramatic teacher 14. Include patient/ patient's inside technical sales representative in decisions related to nutrition Outcome: Progressing Problem: Potential for Inadequate Tissue Perfusion - Venous Goal: Tissue perfusion is adequate - venous Description: Patient's goal is: INTERVENTIONS 1. Assess and monitor skin color and temperature, skin integrity, pulses, capillary refill, edema, pain in extremities and Homans' sign 2. Monitor for signs and symptoms (dyspnea, tachypnea, and tachycardia) 3. Encourage ambulation/activity per patient's tolerance and physician order 4. Elevate feet when in chair 5. Encourage patient to do ankle pump exercises 6. Apply anti-embolism stockings/devices as ordered Outcome: Progressing Note: Continue treatment Problem: Self Care Deficit Goal: Return ADL status to a safe level of function Description: Patient's goal is: INTERVENTIONS 1. Administer medication as ordered 2. Assess ADL deficits and provide assistive devices as needed 3. Obtain PT/OT consults as needed 4. Assist and instruct patient to increase activity and self care as tolerated Outcome: Progressing Note: Pt ot Problem: Moderate - High Risk Fall Score Description: [place] Fall Score of =/> 25 or indicated by [facility] Assessment Goal: Patient should be free from fall Description: Interventions: 1. Power to environment 2. Hourly rounds addressing the 4 P's (Pain, Positioning, Possessions, Potty) 3. Clear area of hazards (spills, clutter, electrical cords, unnecessary equipment) 4. Place equipment (bed & TV controls, call light, phone, urinal) within reach 5. Encourage patient to wear glasses and hearing aides as appropriate 6. Maintain bed in lowest position 7. Lock wheels on bed/wheelchair 8. Provide adequate lighting, including night light 9. Assess need for additional bedding, food/fluids, pain med's prior to sleep/routinely 10. Provide gripper slippers or personal non-skid footwear 11. Teach patient and patient inside technical sales representative to maintain environment for safety and engage in all aspects of fall prevention program 12. Remind patient to call for help before getting out of bed 13. Initiate bed/chair/exit alarms supportive devices as appropriate, (chair wedge, no-skid floor mat, raised edge mattress, hip protectors) 14. Locate patient bed assignment for optimal visualization 15. Evaluate and identify Safe Patient Handling Equipment needs 16. Provide supervision when out of bed or chair 17. Utilize gait belt as needed to assist with ambulation 18. Place adaptive equipment (cane, walker) within reach 19. Request patient inside technical sales representative bring adaptive equipment/mobility aids from home or obtain and provide as needed 20. Consult pharmacy regarding effects of med's affecting mobility, cognition, and alternatives 21. Obtain physician order for PT if risk factors associated with mobility are present 22. Obtain physician order for OT as appropriate 23. Utilize diversional activities 24. Educate patient and patient inside technical sales representative how to maintain a safe environment during visitationtimes (notify nurse prior to leaving bedside) 25. Consider appropriateness of medical or non-medical unit secretary 26. Set up voiding schedule as appropriate (every 2 hours) Outcome: Progressing Note: Fall risk assessment preformed and safety measures in place. Education given to family/patient. Will continue to monitor. * Plan of Care - Emily Byrne RN - 05/17/2025 3:52 AM EDT Problem: Pain Goal: Patient goal is pain score less than 4, able to rest, and participant in treatment plan as appropriate Description: INTERVENTIONS: 1. Encourage patient or legal inside technical sales representative to report early pain and ask for pain medicine when needed 2. Assess pain using appropriate pain scale and include the scale used when documenting 3. Administer analgesics based on type and severity of pain and evaluate response within appropriate time frame 4. Implement non-pharmacological measures as appropriate and evaluate response 5. Consider cultural and social influences on pain and pain management 6. Notify LIP if interventions ineffective or patient reports new pain 7. Monitor vital signs including pulse ox, end-tidal CO2 based on pain intervention 8. Reassess pain per policy 9. Teach patient or legal inside technical sales representative interventions for comforting Outcome: Progressing Note: Patient appears to be in no acute distress. FLACC pain scale performed. Continue to monitor. Problem: Safety Goal: Patient will be injury free during hospitalization Description: INTERVENTIONS: 1. Assess patient's risk for falls and implement fall prevention plan of care per policy 2. Provide and maintain a safe environment 3. Proper use of double Identifiers 4. Medication administration using the 5 rights 5. Hand hygiene 6. Specimens are labeled at the bedside 7. Instruct patient/ patient inside technical sales representative about use of safety devices 8. Include patient/ patient inside technical sales representative in decisions related to safety Outcome: Progressing Note: Patient safety maintained, call light in reach, area clear of hazards, hourly rounding continued, bed locked in lowest position, alarm on as applicable, non skid socks on, safety educated completed with patient/family, no injuries noted at this time. Problem: Infection Goal: Absence of infection during hospitalization Description: INTERVENTIONS 1. Assess and monitor for signs and symptoms of infection. 2. Monitor lab/diagnostic results. 3. Monitor all insertion sites i.e., indwelling lines, tubes and drains. 4. Monitor endotracheal (as able) and nasal secretions for changes in amount and color. 5. Administer medications as ordered. 6. Instruct and encourage patient and family to use good hand hygiene technique. 7. Identify and instruct patient/patient inside technical sales representative in use of appropriate isolation precautionsfor identified infection/symptoms. 8. Provide and discuss with patient/patient inside technical sales representative on educational MDRO sheet. 9. Encourage and monitor nutritional status daily and consult dramatic teacher if indicated. 10. Implement neutropenic guidelines as needed. Outcome: Progressing Note: Currently being treated for UTI. Will continue to monitor for new signs and symptoms. Problem: Knowledge Deficit Goal: Patient/patient inside technical sales representative demonstrates understanding of disease process, treatment plan,medications, and discharge instructions Description: INTERVENTIONS 1. Complete learning assessment and assess knowledge base 2. Provide teaching at level of understanding 3. Provide teaching via preferred learning method(s) Outcome: Progressing Note: Care plan discussed & goals for shift set with patient/family input appreciated. All questions answered. Problem: Discharge Planning Goal: Discharge to post-acute care, other facility, or home with appropriate resources Description: Patient's goal is: INTERVENTIONS 1. Conduct assessment to determine patient/family and health care team treatment goals, and need for post-acute services based on payer coverage, community resources, and patient preferences, and barriers to discharge 2. Coordinate with Social work, Care Navigation, and Utilization Review to arrange appropriate level of services according to patient's needs based on patient preference and payer coverage in collaboration with the physician and health care team 3. Address psychosocial, clinical, and financial barriers to discharge as identified in assessment in conjunction with the patient/family and health care team 4. Consult appropriate ancillary services (i.e.. PT/OT/ST, etc) as needed 5. Communicate with and update the patient/family, physician, and health care team regarding progress on the discharge plan 6. Identify discharge learning needs (meds, wound care, etc). 7. Arrange for needed discharge transportation as appropriate Outcome: Progressing Note: Discharge planning in progress with appropriate multidisciplinary teams. Problem: Neurological Deficit Goal: Neurological status is stable or improving Description: Patient's goal is: INTERVENTIONS 1. Complete Neurological assessment as indicated/ordered 2. Initiate measures to prevent increased intracranial pressure 3. Monitor and assess patient's level of consciousness, motor function, sensory function, and levelof assistance needed for ADLs 4. Monitor and report changes from baseline 5. Maintain blood pressure and fluid volume within ordered parameters to optimize cerebral perfusion and minimize risk of hemorrhage 6. Monitor labs and diagnostic tests 7. Administer anti-seizure medications as ordered 8. Maintain airway, patient safety and administer oxygen as ordered 9. Monitor patient for seizure activity, document and report duration and description of seizure toLIP 10. If seizure occurs, turn patient to side and suction secretions as needed 11. Reorient patient post seizure 12. Seizure pads on all 4 side rails 13. Instruct patient/family to notify RN of any seizure activity 14. Instruct patient/family to call for assistance with activity based on assessment 15. Utilize bleeding precautions if thrombolytic given Outcome: Progressing Note: Patient's level of consciousness, motor function, sensory function, and level of assistance needed for ADLs all monitored and assessed at this time. Changes from baseline reported to necessary personal when needed. Patients care is optimized for cerebral perfusion accordingly to patients orders. Problem: Activity Intolerance/Impaired Mobility Goal: Mobility/activity is maintained at optimum level for patient Description: Patient's goal is: INTERVENTIONS 1. Assess and monitor patient barriers to mobility and need for assistive/adaptive devices 2. Assess patient's emotional response to limitations 3. Collaborate with interdisciplinary teams and initiate plans and interventions as ordered 4. Encourage independent activity per tolerance 5. Maintain proper body alignment 6. Perform active/passive ROM as tolerated/ordered 7. Coordinate activities to conserve energy 8. Reposition patient 9. Ensure adequate rest/sleep time Outcome: Progressing Note: Patient repositioned Q2H and as needed to balance activity and rest. Assessment completed forany needs on assistive devices/patient safe handling equipment. Collaboration with interdisciplinary teams considered. Problem: Potential for Compromised Skin Integrity Goal: Skin integrity is maintained or improved Description: Patient's goal is: INTERVENTIONS 1. Perform initial skin assessment on admission and as needed 2. Turn patient every 2 hours and PRN 3. Relieve pressure to bony prominences 4. Avoid shearing 5. Keep skin clean and dry 6. Alternate a full bath with partial baths for elderly 7. Apply lotion/moisturizer on skin 8. Monitor patient's hygiene practices 9. Float heels 10. Collaborate with interdisciplinary team and initiate plans and interventions as needed Outcome: Progressing Note: Patient repositioned Q2 hrs. Monitor for s/s of skin breakdown and treat/communicate with treatment team as needed. Goal: Patient's nutritional intake is adequate Description: Patient's goal is: INTERVENTIONS 1. Assess and monitor food intake and supplements, patient food preferences, nausea, vomiting, labs, oral cavity (gums, teeth, tongue, mucosa), proper denture fit, and cultural beliefs 2. Monitor for signs of hypoglycemia and hyperglycemia 3. Collaborate with interdisciplinary team and initiate plan and interventions as ordered 4. Monitor patient's weight 5. Assist patient with meals/food selection 6. Assist patient with eating 7. Allow adequate time for meals 8. Provide pleasant environment during mealtime 9. Increase social contact during mealtimes 10. Plan activities to conserve energy 11. Encourage/perform oral hygiene as appropriate 12. Encourage patient to take dietary supplement as ordered 13. Collaborate with clinical dramatic teacher 14. Include patient/ patient's inside technical sales representative in decisions related to nutrition Outcome: Progressing Note: Pt nutritional needs monitored and addressed as ordered by physician. Dietary recommendationsappreciated as ordered. Problem: Moderate - High Risk Fall Score Description: [place] Fall Score of =/> 25 or indicated by [facility] Assessment Goal: Patient should be free from fall Description: Interventions: 1. Power to environment 2. Hourly rounds addressing the 4 P's (Pain, Positioning, Possessions, Potty) 3. Clear area of hazards (spills, clutter, electrical cords, unnecessary equipment) 4. Place equipment (bed & TV controls, call light, phone, urinal) within reach 5. Encourage patient to wear glasses and hearing aides as appropriate 6. Maintain bed in lowest position 7. Lock wheels on bed/wheelchair 8. Provide adequate lighting, including night light 9. Assess need for additional bedding, food/fluids, pain med's prior to sleep/routinely 10. Provide gripper slippers or personal non-skid footwear 11. Teach patient and patient inside technical sales representative to maintain environment for safety and engage in all aspects of fall prevention program 12. Remind patient to call for help before getting out of bed 13. Initiate bed/chair/exit alarms supportive devices as appropriate, (chair wedge, no-skid floor mat, raised edge mattress, hip protectors) 14. Locate patient bed assignment for optimal visualization 15. Evaluate and identify Safe Patient Handling Equipment needs 16. Provide supervision when out of bed or chair 17. Utilize gait belt as needed to assist with ambulation 18. Place adaptive equipment (cane, walker) within reach 19. Request patient inside technical sales representative bring adaptive equipment/mobility aids from home or obtain and provide as needed 20. Consult pharmacy regarding effects of med's affecting mobility, cognition, and alternatives 21. Obtain physician order for PT if risk factors associated with mobility are present 22. Obtain physician order for OT as appropriate 23. Utilize diversional activities 24. Educate patient and patient inside technical sales representative how to maintain a safe environment during visitationtimes (notify nurse prior to leaving bedside) 25. Consider appropriateness of medical or non-medical unit secretary 26. Set up voiding schedule as appropriate (every 2 hours) Outcome: Progressing Note: Fall risk assessment preformed and safety measures in place. Education given to family/patient. Will continue to monitor. documented in this encounter Plan of Treatment Scheduled Referrals Name Type Priority Associated Diagnoses Order Schedule Referral to Occupational Therapy Outpatient Referral Routine ICH (intracerebral hemorrhage) ([facility]) Ordered: 05/20/2025 Referral to Physical Therapy Outpatient Referral Routine ICH (intracerebral hemorrhage) ([facility]) Ordered: 05/20/2025 Referral to Nursing Care Outpatient Referral Routine ICH (intracerebral hemorrhage) ([facility]) Ordered: 05/20/2025 Referral to Speech Therapy Outpatient Referral Routine ICH (intracerebral hemorrhage) ([facility]) Ordered: 05/20/2025 documented as of this encounter Goals Goal Patient Goal Type Associated Problems Recent Progress Patient-Stated? Author discharge General Yes Mable Fisher RN Note: Evaluation of progress towards goal: Safe discharge from hospital documented as of this encounter Procedures Procedure Name Priority Date/Time Associated Diagnosis Comments EXTRA TUBES LAVENDER TOP Routine 05/20/2025 7:54 AM EDT EXTRA TUBES Routine 05/20/2025 7:54 AM EDT MYOGLOBIN, SERUM Routine 05/20/2025 6:57 AM EDT CK TOTAL Routine 05/20/2025 6:57 AM EDT BASIC METABOLIC PANEL Routine 05/20/2025 6:57 AM EDT POTASSIUM Routine 05/19/2025 10:21 AM EDT CBC WITH AUTO DIFFERENTIAL Routine 05/19/2025 3:24 AM EDT MYOGLOBIN, SERUM Routine 05/19/2025 3:24 AM EDT CK TOTAL Routine 05/19/2025 3:24 AM EDT BASIC METABOLIC PANEL Routine 05/19/2025 3:24 AM EDT CBC WITH AUTO DIFFERENTIAL Routine 05/18/2025 3:21 AM EDT MYOGLOBIN, SERUM Routine 05/18/2025 3:21 AM EDT CK TOTAL Routine 05/18/2025 3:21 AM EDT BASIC METABOLIC PANEL Routine 05/18/2025 3:21 AM EDT IONIZED MAGNESIUM Routine 05/17/2025 8:5 4 AM EDT MYOGLOBIN, SERUM Add-On 05/17/2025 8:54 AM EDT CK TOTAL Add-On 05/17/2025 8:54 AM EDT CBC WITH AUTO DIFFERENTIAL STAT 05/17/2025 4:33 AM EDT BASIC METABOLIC PANEL STAT 05/17/2025 3:11 AM EDT BEDSIDE GLUCOSE Routine 05/17/2025 1:[address] BRAIN WO CONT STAT 05/17/2025 1:16 AM EDT BLOOD CULTURE STAT 05/16/2025 11:08 PM EDT BLOOD CULTURE STAT 05/16/2025 11:08 PM EDT URINE CULTURE STAT 05/16/2025 11:08 PM EDT REPEATED ABORH Routine 05/16/2025 11:04 PM EDT DRUG SCREEN, URINE STAT 05/16/2025 10 :47 PM EDT URINALYSIS STAT 05/16/2025 10:47 PM EDT PATEL TOP ON ICE STAT 05/16/2025 10:44 PM EDT LACTATE W/ REFLEX Add-On 05/16/2025 10: 44 PM EDT CBC WITH AUTO DIFFERENTIAL STAT 05/16/2025 10:44 PM EDT RAINBOW DRAW STAT 05/16/2025 10:44 PM EDT TYPE AND SCREEN STAT 05/16/2025 10:44 PM EDT APTT STAT 05/16/2025 10:43 PM EDT PROTIME & INR STAT 05/16/2025 10:43 PM EDT FIBRINOGEN STAT 05/16/2025 10:43 PM EDT PHOSPHORUS Add-On 05/16/2025 10:43 PM EDT MYOGLOBIN, SERUM Add-On 05/16/2025 10:4 3 PM EDT MAGNESIUM Add-On 05/16/2025 10:43 PM EDT LIPASE STAT 05/16/2025 10:43 PM EDT CK TOTAL Add-On 05/16/2025 10:43 PM EDT AMYLASE STAT 05/16/2025 10:43 PM EDT ETHANOL STAT 05/16/2025 10:43 PM EDT COMPREHENSIVE METABOLIC PANEL STAT 05/16/2025 10:43 PM EDT documented in this encounter Results * Lavender Top (05/20/2025 7:54 AM EDT) Extra Tube Auto Resulted 05/20/2025 9:01 AM EDT [facility] Blood Venous blood / Unknown 05/20/2025 7:54 AM EDT 05/20/2025 7:54 AM EDT Wilfredo Moreau MD LAB BLOOD ORDERABLES Final Re sult [facility] [address] [place] [address], * (ABNORMAL) CK Total (05/20/2025 6:57 AM EDT) CPK 270(H) 24 - 170 U/L 05/20/2025 8:13 AM EDT [facility] Blood Venous blood / Unknown Venipuncture / Unknown 05/20/2025 6:57 AM EDT 05/20/2025 7:38 AM EDT Kamilah Tilley PA-C LAB BLOOD ORDERABLES Final Re sult [facility] [address] [place] [address], [place] [phone] * (ABNORMAL) Basic Metabolic Panel (05/20/2025 6:57 AM EDT) SODIUM 143 134 - 146 mmol/L 05/20/2025 8:13 AM EDT [facility] POTASSIUM 3.8 3.5 - 5.0 mmol/L 05/20/2025 8:13 AM EDT [facility] CHLORIDE 114(H) 98 - 109 mmol/L 05/20/2025 8:13 AM EDT [facility] CARBON DIOXIDE 20(L) 22 - 32 mmol/L 05/20/2025 8:13 AM EDT [facility] ANION GAP 9 5 - 15 mmol/L 05/20/2025 8:13 AM EDT [facility] BLOOD UREA NITROGEN 16 5 - 27 mg/dL 05/20/2025 8:13 AM EDT [facility] CREATININE 0.52 0.40 - 1.00 mg/dL 05/20/2025 8:13 AM EDT [facility] Comment:METHOD TRACEABLE TO IDMS STANDARD GLUCOSE 93 65 - 99 mg/dL 05/20/2025 8:13 AM EDT [facility] CALCIUM 7.6(L) 8.5 - 10.5 mg/dL 05/20/2025 8:13 AM EDT [facility] EGFR Non-Race Dependent 90 >=60 ml/min/1.7 3sq.m 05/20/2025 8:13 AM EDT [facility] Comment: Reported eGFR is based on the CKD-EPI 2020 equation that does not use a race coefficient. EGFR not calculated due to patient's gender not being defined. Blood Venous blood / Unknown Venipuncture / Unknown 05/20/2025 6:57 AM EDT 05/20/2025 7:38 AM EDT us Mary Lowe TRAVELING CONSTRUCTION SUPERINTENDENT-HOSPICE MASSAGE THERAPIST LAB BLOOD ORDERABLES Fi nal Result [facility] [address] [place] [address], [place] [phone] * (ABNORMAL) Myoglobin, serum (05/20/2025 6:57 AM EDT) SERUM MYOGLOBIN 74.3(H) 14.3 - 65.8 ng/mL 05/20/2025 8:13 AM EDT [facility] Blood Venous blood / Unknown Venipuncture / Unknown 05/20/2025 6:57 AM EDT 05/20/2025 7:38 AM EDT Kamilah Tilley PA-C LAB BLOOD ORDERABLES Final Re sult [facility] [address] [place] [address], * Potassium (05/19/2025 10:21 AM EDT) POTASSIUM 4.2 3.5 - 5.0 mmol/L 05/19/2025 11:23 AM EDT [facility] Blood Venous blood / Unknown Venipuncture / Unknown 05/19/2025 10:21 AM EDT 05/19/2025 10:48 AM EDT Mary Lowe TRAVELING CONSTRUCTION SUPERINTENDENT-HOSPICE MASSAGE THERAPIST LAB BLOOD ORDERABLES Fi nal Result Performing Organization Address City/[facility]/ZIP Co de Phone Number [facility] [address] [place] [address], * (ABNORMAL) CK Total (05/19/2025 3:24 AM EDT) CPK 653(H) 24 - 170 U/L 05/19/2025 4:35 AM EDT [facility] Blood Venous blood / Unknown Venipuncture / Unknown 05/19/2025 3:24 AM EDT 05/19/2025 4:00 AM EDT Kamilah [place] LAB BLOOD ORDERABLES Final Re sult [facility] [address] [place] [address], * (ABNORMAL) Basic Metabolic Panel (05/19/2025 3:24 AM EDT) SODIUM 143 134 - 146 mmol/L 05/19/2025 4:35 AM EDT [facility] POTASSIUM 3.6 3.5 - 5.0 mmol/L 05/19/2025 4:35 AM EDT [facility] CHLORIDE 115(H) 98 - 109 mmol/L 05/19/2025 4:35 AM EDT [facility] CARBON DIOXIDE 19(L) 22 - 32 mmol/L 05/19/2025 4:35 AM EDT [facility] ANION GAP 9 5 - 15 mmol/L 05/19/2025 4:35 AM EDT [facility] BLOOD UREA NITROGEN 15 5 - 27 mg/dL 05/19/2025 4:35 AM EDT [facility] CREATININE 0.49 0.40 - 1.00 mg/dL 05/19/2025 4:35 AM EDT [facility] Comment:METHOD TRACEABLE TO IDMS STANDARD GLUCOSE 105(H) 65 - 99 mg/dL 05/19/2025 4:35 AM EDT [facility] CALCIUM 7.9(L) 8.5 - 10.5 mg/dL 05/19/2025 4:35 AM EDT [facility] EGFR Non-Race Dependent >90 >=60 ml/min/1.7 3sq.m 05/19/2025 4:35 AM EDT [facility] Comment: Reported eGFR is based on the CKD-EPI 2020 equation that does not use a race coefficient. EGFR not calculated due to patient's gender not being defined. Blood Venous blood / Unknown Venipuncture / Unknown 05/19/2025 3:24 AM EDT 05/19/2025 4:00 AM EDT Mary Lowe TRAVELING CONSTRUCTION SUPERINTENDENT-HOSPICE MASSAGE THERAPIST LAB BLOOD ORDERABLES Fi nal Result [facility] [address] [place] [address], * (ABNORMAL) Myoglobin, serum (05/19/2025 3:24 AM EDT) [facility] SERUM MYOGLOBIN 95.4(H) 14.3 - 65.8 ng/mL 05/19/2025 4:35 AM EDT [facility] Blood Venous blood / Unknown Venipuncture / Unknown 05/19/2025 3:24 AM EDT 05/19/2025 4:00 AM EDT Kamilah Tilley PA-C LAB BLOOD ORDERABLES Final Re sult Performing Organization Address City/[facility]/ZIP Co de Phone Number [facility] [address] [place] [address], * (ABNORMAL) CBC auto differential (05/19/2025 3:24 AM EDT) [facility] WBC 9.9 4 - 11 x10E9/L 05/19/2025 4:14 AM EDT [facility] RBC Count 3.35(L) 3.8 - 5.2 X10E12/L 05/19/2025 4:14 AM EDT [facility] Hemoglobin 10.3(L) 11.7 - 15.5 g/dL 05/19/2025 4:14 AM EDT [facility] Hematocrit 30.8(L) 35 - 47 % 05/19/2025 4:14 AM EDT [facility] MCV 92 80 - 100 fL 05/19/2025 4:14 AM EDT [facility] MCH 30.7 27 - 34 pg 05/19/2025 4:14 AM EDT [facility] MCHC 33.4 32 - 36 g/dL 05/19/2025 4:14 AM EDT [facility] RDW 14.2 11.5 - 15 % 05/19/2025 4:14 AM EDT [facility] Platelet Count 122(L) 150 - 450 X10E9/L 05/19/2025 4:14 AM EDT [facility] MPV 10.1 7 - 12 fL 05/19/2025 4:14 AM EDT [facility] Neutrophils % 83.9 % 05/19/2025 4:14 AM EDT [facility] Lymphocytes % 9.5 % 05/19/2025 4:14 AM EDT [facility] Monocytes % 5.8 % 05/19/2025 4:14 AM EDT [facility] Eosinophils % 0.4 % 05/19/2025 4:14 AM EDT [facility] Basophils % 0.4 % 05/19/2025 4:14 AM EDT [facility] Neutrophils Absolute (A) 8.3(H) 1.5 - 6.6 10*3/uL 05/19/2025 4:14 AM EDT [facility] Lymphocytes Absolute 0.9(L) 1.0 - 3.5 10*3/uL 05/19/2025 4:14 AM EDT [facility] Monocytes Absolute 0.6 0.0 - 0.9 10*3/uL 05/19/2025 4:14 AM EDT [facility] Eosinophils Absolute 0.0 0.0 - 0.4 10*3/uL 05/19/2025 4:14 AM EDT [facility] Basophils Absolute 0.0 0.0 - 0.2 10*3/uL 05/19/2025 4:14 AM EDT [facility] Differential Type AUTOMATED DIFFERENTIAL 05/19/2025 4:14 AM EDT [facility] Blood Venous blood / Unknown Venipuncture / Unknown 05/19/2025 3:24 AM EDT 05/19/2025 4:00 AM EDT us Mary Lowe TRAVELING CONSTRUCTION SUPERINTENDENT-HOSPICE MASSAGE THERAPIST LAB BLOOD ORDERABLES Fi nal Result [facility] [address] [place] [address], * (ABNORMAL) CK Total (05/18/2025 3:21 AM EDT) CPK 1,468(H) 24 - 170 U/L 05/18/2025 5:06 AM EDT [facility] Blood Venous blood / Unknown Venipuncture / Unknown 05/18/2025 3:21 AM EDT 05/18/2025 4:24 AM EDT Kamilah Tilley PA-C LAB BLOOD ORDERABLES Final Re sult [facility] [address] [place] [address], * (ABNORMAL) Basic Metabolic Panel (05/18/2025 3:21 AM EDT) SODIUM 144 134 - 146 mmol/L 05/18/2025 4:58 AM EDT [facility] POTASSIUM 3.8 3.5 - 5.0 mmol/L 05/18/2025 4:58 AM EDT [facility] CHLORIDE 115(H) 98 - 109 mmol/L 05/18/2025 4:58 AM EDT [facility] CARBON DIOXIDE 22 22 - 32 mmol/L 05/18/2025 4:58 AM EDT [facility] ANION GAP 7 5 - 15 mmol/L 05/18/2025 4:58 AM EDT [facility] BLOOD UREA NITROGEN 12 5 - 27 mg/dL 05/18/2025 4:58 AM EDT [facility] CREATININE 0.49 0.40 - 1.00 mg/dL 05/18/2025 4:58 AM EDT [facility] Comment:METHOD TRACEABLE TO IDMS STANDARD GLUCOSE 110(H) 65 - 99 mg/dL 05/18/2025 4:58 AM EDT [facility] CALCIUM 7.8(L) 8.5 - 10.5 mg/dL 05/18/2025 4:58 AM EDT [facility] EGFR Non-Race Dependent >90 >=60 ml/min/1.7 3sq.m 05/18/2025 4:58 AM EDT [facility] Comment: Reported eGFR is based on the CKD-EPI 2020 equation that does not use a race coefficient. EGFR not calculated due to patient's gender not being defined. Blood Venous blood / Unknown Venipuncture / Unknown 05/18/2025 3:21 AM EDT 05/18/2025 4:24 AM EDT Mary Lowe APRN-HOSPICE MASSAGE THERAPIST LAB BLOOD ORDERABLES Fi nal Result Performing Organization Address City/[facility]/ZIP Co de Phone Number [facility] [address] [place] [address], [place] [phone] * (ABNORMAL) Myoglobin, serum (05/18/2025 3:21 AM EDT) SERUM MYOGLOBIN 216.6(H) 14.3 - 65.8 ng/mL 05/18/2025 5:42 AM EDT [facility] Blood Venous blood / Unknown Venipuncture / Unknown 05/18/2025 3:21 AM EDT 05/18/2025 4:24 AM EDT Kamilah Tilley PA-C LAB BLOOD ORDERABLES Final Re sult [facility] [address] [place] [address], [place] [phone] * (ABNORMAL) CBC auto differential (05/18/2025 3:21 AM EDT) WBC 10.8 4 - 11 x10E9/L 05/18/2025 4:42 AM EDT [facility] RBC Count 3.35(L) 3.8 - 5.2 X10E12/L 05/18/2025 4:42 AM EDT [facility] Hemoglobin 10.2(L) 11.7 - 15.5 g/dL 05/18/2025 4:42 AM EDT [facility] Hematocrit 30.7(L) 35 - 47 % 05/18/2025 4:42 AM EDT [facility] MCV 92 80 - 100 fL 05/18/2025 4:42 AM EDT [facility] MCH 30.5 27 - 34 pg 05/18/2025 4:42 AM EDT [facility] MCHC 33.3 32 - 36 g/dL 05/18/2025 4:42 AM EDT [facility] RDW 14.3 11.5 - 15 % 05/18/2025 4:42 AM EDT [facility] Platelet Count 109(L) 150 - 450 X10E9/L 05/18/2025 4:42 AM EDT [facility] MPV 10.4 7 - 12 fL 05/18/2025 4:42 AM EDT [facility] Neutrophils % 84.1 % 05/18/2025 4:42 AM EDT [facility] Lymphocytes % 8.6 % 05/18/2025 4:42 AM EDT [facility] Monocytes % 6.4 % 05/18/2025 4:42 AM EDT [facility] Eosinophils % 0.4 % 05/18/2025 4:42 AM EDT [facility] Basophils % 0.5 % 05/18/2025 4:42 AM EDT [facility] Neutrophils Absolute (A) 9.1(H) 1.5 - 6.6 10*3/uL 05/18/2025 4:42 AM EDT [facility] Lymphocytes Absolute 0.9(L) 1.0 - 3.5 10*3/uL 05/18/2025 4:42 AM EDT [facility] Monocytes Absolute 0.7 0.0 - 0.9 10*3/uL 05/18/2025 4:42 AM EDT [facility] Eosinophils Absolute 0.0 0.0 - 0.4 10*3/uL 05/18/2025 4:42 AM EDT [facility] Basophils Absolute 0.1 0.0 - 0.2 10*3/uL 05/18/2025 4:42 AM EDT [facility] Differential Type AUTOMATED DIFFERENTIAL 05/18/2025 4:42 AM EDT [facility] Blood Venous blood / Unknown Venipuncture / Unknown 05/18/2025 3:21 AM EDT 05/18/2025 4:24 AM EDT Mayr Lowe TRAVELING CONSTRUCTION SUPERINTENDENT-HOSPICE MASSAGE THERAPIST LAB BLOOD ORDERABLES Fi nal Result [facility] [address] [place] [address], [place] [phone] * (ABNORMAL) Myoglobin, serum (05/17/2025 8:54 AM EDT) SERUM MYOGLOBIN 967.7(H) 14.3 - 65.8 ng/mL 05/17/2025 9:37 AM EDT [facility] Blood Venous blood / Unknown Venipuncture / Unknown 05/17/2025 8:54 AM EDT 05/17/2025 9:04 AM EDT us Kamilah Tilley PA-C LAB BLOOD ORDERABLES Final Re sult [facility] [address] [place] [address], [place] [phone] * (ABNORMAL) CK Total (05/17/2025 8:54 AM EDT) CPK 1,976(H) 24 - 170 U/L 05/17/2025 9:37 AM EDT [facility] Blood Venous blood / Unknown Venipuncture / Unknown 05/17/2025 8:54 AM EDT 05/17/2025 9:04 AM EDT Kamilah Tilley PA-C LAB BLOOD ORDERABLES Final Re sult [facility] [address] [place] [address], * (ABNORMAL) Ionized magnesium (05/17/2025 8:54 AM EDT) Pathologist [facility] IONIZED MAGNESIUM 0.78(H) 0.45 - 0.74 mmol/L 05/17/2025 9:28 AM EDT [facility] Blood Venous blood / Unknown Venipuncture / Unknown 05/17/2025 8:54 AM EDT 05/17/2025 9:04 AM EDT Mary Lowe TRAVELING CONSTRUCTION SUPERINTENDENT-HOSPICE MASSAGE THERAPIST LAB BLOOD ORDERABLES Fi nal Result [facility] [address] [place] [address], * (ABNORMAL) CBC auto differential (05/17/2025 4:33 AM EDT) [facility] WBC 14.4(H) 4 - 11 x10E9/L 05/17/2025 5:24 AM EDT [facility] RBC Count 3.66(L) 3.8 - 5.2 X10E12/L 05/17/2025 5:24 AM EDT [facility] Hemoglobin 11.1(L) 11.7 - 15.5 g/dL 05/17/2025 5:24 AM EDT [facility] Hematocrit 33.3(L) 35 - 47 % 05/17/2025 5:24 AM EDT [facility] MCV 91 80 - 100 fL 05/17/2025 5:24 AM EDT [facility] MCH 30.2 27 - 34 pg 05/17/2025 5:24 AM EDT [facility] MCHC 33.2 32 - 36 g/dL 05/17/2025 5:24 AM EDT [facility] RDW 14.5 11.5 - 15 % 05/17/2025 5:24 AM EDT [facility] Platelet Count 135(L) 150 - 450 X10E9/L 05/17/2025 5:24 AM EDT [facility] MPV 9.6 7 - 12 fL 05/17/2025 5:24 AM EDT [facility] Neutrophils % 87.4 % 05/17/2025 5:24 AM EDT [facility] Lymphocytes % 6.1 % 05/17/2025 5:24 AM EDT [facility] Monocytes % 6.3 % 05/17/2025 5:24 AM EDT [facility] Eosinophils % 0.0 % 05/17/2025 5:24 AM EDT [facility] Basophils % 0.2 % 05/17/2025 5:24 AM EDT [facility] Neutrophils Absolute (A) 12.6(H) 1.5 - 6.6 10*3/uL 05/17/2025 5:24 AM EDT [facility] Lymphocytes Absolute 0.9(L) 1.0 - 3.5 10*3/uL 05/17/2025 5:24 AM EDT [facility] Monocytes Absolute 0.9 0.0 - 0.9 10*3/uL 05/17/2025 5:24 AM EDT [facility] Eosinophils Absolute 0.0 0.0 - 0.4 10*3/uL 05/17/2025 5:24 AM EDT [facility] Basophils Absolute 0.0 0.0 - 0.2 10*3/uL 05/17/2025 5:24 AM EDT [facility] Differential Type AUTOMATED DIFFERENTIAL 05/17/2025 5:24 AM EDT [facility] Blood Venous blood / Unknown Venipuncture / Unknown 05/17/2025 4:33 AM EDT 05/17/2025 5:12 AM EDT us Mary Lowe [employer]AGE [employer]ER[employer]IST LAB BLOOD ORDERABLES Fi nal Result [facility] [address] [place] [address], [place] [phone] * (ABNORMAL) Basic Metabolic Panel (05/17/2025 3:11 AM EDT) SODIUM 142 134 - 146 mmol/L 05/17/2025 4:50 AM EDT [facility] POTASSIUM 4.0 3.5 - 5.0 mmol/L 05/17/2025 4:50 AM EDT [facility] CHLORIDE 111(H) 98 - 109 mmol/L 05/17/2025 4:50 AM EDT [facility] CARBON DIOXIDE 23 22 - 32 mmol/L 05/17/2025 4:50 AM EDT [facility] ANION GAP 8 5 - 15 mmol/L 05/17/2025 4:50 AM EDT [facility] BLOOD UREA NITROGEN 14 5 - 27 mg/dL 05/17/2025 4:50 AM EDT [facility] CREATININE 0.67 0.40 - 1.00 mg/dL 05/17/2025 4:50 AM EDT [facility] Comment:METHOD TRACEABLE TO [employer]CO STANDARD GLUCOSE 146(H) 65 - 99 mg/dL 05/17/2025 4:50 AM EDT [facility] CALCIUM 8.0(L) 8.5 - 10.5 mg/dL 05/17/2025 4:50 AM EDT [facility] EGFR Non-Race Dependent 85 >=60 ml/min/1.7 3sq.m 05/17/2025 4:50 AM EDT [facility] Comment: Reported eGFR is based on the CKD-EPI 2020 equation that does not use a race coefficient. EGFR not calculated due to patient's gender not being defined. Blood Venous blood / Unknown Venipuncture / Unknown 05/17/2025 3:11 AM EDT 05/17/2025 4:06 AM EDT us Mary Lowe TRAVELING CONSTRUCTION SUPERINTENDENT-HOSPICE MASSAGE THERAPIST LAB BLOOD ORDERABLES Fi nal Result [facility] [address] [place] [address], [place] [phone] * (ABNORMAL) Bedside Glucose *Place/Obtain serum glucose if >500 per glucometer. (05/17/2025 1:20 AM EDT) Bedside Glucose (POC) 200(H) 65 - 99 mg/dL 05/17/2025 1:21 AM EDT [facility] arterial/capilla ry 05/17/2025 1:20 AM EDT 05/17/2025 1:21 AM EDT us Wilfredo Moreau MD POINT OF CARE TEST ORDERABLES Final Result [facility] [address] [place] [address], [place] * CT brain without contrast (05/17/2025 1:16 AM EDT) Anatomical Region Laterality Modality Neuro, Head, Head and Neck, Neuro Covera N/A Computed Tomography 05/17/2025 1:39 AM EDT Narrative 05/17/2025 1:54 AM EDT History: SDH, SAH Exam/Technique: CT images of the brain were obtained without IV contrast. CT does automated exposure control was utilized. All CT scans at this facility use dose modulation, iterative reconstruction, and/or weight based dosing when appropriate to reduce radiation dose to as low as reasonably achievable. Comparison: Head CT 05/16/2025 Findings: The left frontal lobe vasogenic edema and multiple parenchymal hemorrhagic changes are grossly stable compared to prior exam. There are multiple stable subarachnoid hemorrhagic changes along the left more than right right temporal lobes, both occipital lobes and right cerebellar hemisphere. There are small parenchymal contusion changes at the inferior aspect of the right frontal lobe. There is small subdural hematoma primarily along the left tentorium. There is grossly stable 2 mm right subfalcine shift with no gross transtentorial herniation. There is nondisplaced right occipital bone fracture. IMPRESSION: Grossly stable multiple multiple compartments hemorrhagic changes bilaterally at both supratentorial and infratentorial structures. Right occipital bone fracture is grossly stable. Stable 2 mm right subfalcine shift with no gross transtentorial herniation Finalized by Pako Etsevez MD on 05/17/2025 1:54 AM Procedure Note Pako Estevez MD - 05/17/2025 History: SDH, SAH Exam/Technique: CT images of the brain were obtained without IV contrast. CT doesautomated exposure control was utilized. All CT scans at this facility use dose modulation, iterativereconstruction, and/or weight based dosing when appropriate to reduceradiation dose to as low as reasonably achievable. Comparison: Head CT 05/16/2025 Findings: The left frontal lobe vasogenic edema and multiple parenchymal hemorrhagicchanges are grossly stable compared to prior exam. There are multiplestable subarachnoid hemorrhagic changes along the left more than rightright temporal lobes, both occipital lobes and right cerebellarhemisphere. There are small parenchymal contusion changes at the inferior aspect ofthe right frontal lobe. There is small subdural hematoma primarily along the left tentorium. There is grossly stable 2 mm right subfalcine shift with no grosstranstentorial herniation. There is nondisplaced right occipital bone fracture. IMPRESSION: Grossly stable multiple multiple compartments hemorrhagic changesbilaterally at both supratentorial and infratentorial structures. Right occipital bone fracture is grossly stable. Stable 2 mm right subfalcine shift with no gross transtentorialherniation Finalized by Pako Estevez MD on 05/17/2025 1:54 AM Mary Lowe TRAVELING CONSTRUCTION SUPERINTENDENT-HOSPICE MASSAGE THERAPIST IM CT ORDERABLES Final Result * Urine Culture Urine, Indwelling Catheter (05/16/2025 11:08 PM EDT) CULTURE RESULTS <10,000 ORGANISMS/m L NORMAL URO GENITAL TAIWO 05/17/2025 5:55 PM EDT [facility] Urine (Urine, Indwelling Catheter) 05/16/2025 11:08 PM EDT 05/16/2025 11:27 PM EDT Salome Chávez TRAVELING CONSTRUCTION SUPERINTENDENT-HOSPICE MASSAGE THERAPIST MICROBIOLOGY - GENERAL ORD ERABLES Final Result [facility] [address] [place] [address], [place] [phone] * Blood culture #2 (05/16/2025 11:08 PM EDT) CULTURE RESULTS NO GROWTH 5 DAYS 05/22/2025 12:03 AM EDT [facility] Blood Venous blood / Unknown Venipuncture / Unknown 05/16/2025 11:08 PM EDT 05/16/2025 11:44 PM EDT Narrative [facility] - 05/22/2025 12:03 AM EDT Suboptimal volume of blood collected, Results may be affected. Mary Lowe TRAVELING CONSTRUCTION SUPERINTENDENT-[facility] MICROBIOLOGY - GENERAL ORDERABLES Final Result [facility] [address] [place] [address], [place] [phone] * Blood culture #1 (05/16/2025 11:08 PM EDT) CULTURE RESULTS NO GROWTH 5 DAYS 05/22/2025 12:03 AM EDT [facility] Blood Venous blood / Unknown Venipuncture / Unknown 05/16/2025 11:08 PM EDT 05/16/2025 11:44 PM EDT Narrative [facility] - 05/22/2025 12:03 AM EDT Suboptimal volume of blood collected, Results may be affected. Mary Lowe TRAVELING CONSTRUCTION SUPERINTENDENT-[facility] MICROBIOLOGY - GENERAL ORDERABLES Final Result [facility] [address] [place] [address], [place] [phone] * ABO Rh Repeat (05/16/2025 11:04 PM EDT) ABO O 05/16/2025 11:48 PM EDT [facility] RH Positive 05/16/2025 11:48 PM EDT [facility] Blood Venous blood / Unknown 05/16/2025 11:04 PM EDT 05/16/2025 11:14 PM EDT us Jd Pires MD BLOOD BANK TEST ORDERABLES Fi nal Result [facility] [address] [place] [address], [facility] [address] [place] [address], * (ABNORMAL) Urinalysis (05/16/2025 10:47 PM EDT) COLOR Yellow Yellow 05/16/2025 11:25 PM EDT [facility] TURBIDITY Clear Clear 05/16/2025 11:25 PM EDT [facility] SPECIFIC GRAVITY 1.010 1.003 - 1.035 05/16/2025 11:25 PM EDT [facility] NITRITE Negative Negative 05/16/2025 11:25 PM EDT [facility] PH,URINE 6.0 5.0 - 8.5 05/16/2025 11:25 PM EDT [facility] LEUKOCYTE ESTERASE Negative Negative 05/16/2025 11:25 PM EDT [facility] PROTEIN 30 mg/dL(A) Negative 05/16/2025 11:25 PM EDT [facility] KETONES (URINE) 40 mg/dL(A) Negative 05/16/20 11:25 PM EDT [facility] UROBILINOGEN <1.1 eu/dL <1.1 eu/dL 05/16/2025 11:25 PM EDT [facility] BILIRUBIN (URINE) Negative Negative 05/16/2025 11:25 PM EDT [facility] BLOOD/HGB Moderate(A) Negative 05/16/2025 11:25 PM EDT [facility] MUCOUS Present(A) None 05/16/2025 11:25 PM EDT [facility] R.B.CELLS 6(H) 0 - 5 05/16/2025 11:25 PM EDT [facility] SQUAMOUS EPITHELIUM <1 0 - 5 05/16/2025 11:25 PM EDT [facility] W.B.CELLS 3 0 - 5 05/16/2025 11:25 PM EDT [facility] GLUCOSE (URINE) Negative Negative 11:25 PM EDT [facility] Urine Urine / Unknown 05/16/2025 1 0:47 PM EDT 05/16/2025 10:58 PM EDT Mary Lowe TRAVELING CONSTRUCTION SUPERINTENDENT-HOSPICE MASSAGE THERAPIST URINE ORDERABLES Final Result [facility] [address] [place] [address], * Drug Screen, Urine (05/16/2025 10:47 PM EDT) AMPHETAMINE/METHAMP Negative Negative 05/16 11:28 PM EDT [facility] Comment:AMPH/METH screening cut off = 1000 ng/mL COCAINE METABOLITE Negative Negative 2024 11:28 PM EDT [facility] Comment:Cocaine screening cu t off value = 300 ng/mL ECSTASY Negative Negative 05/16/2025 11:28 PM EDT [facility] Comment:Ecstasy screening cu t off value = 500 ng/mL METHADONE Negative Negative 05/16/2025 11:28 PM EDT [facility] Comment:Methadone screening cut off value = 300 ng/mL. OPIATES Negative Negative 05/16/2025 11:28 PM EDT [facility] Comment: Opiates screening cut off value = 300 ng/mL This test is used for the detection of codeine, hydrocodone (>1000 ng/mL), morphine and hydromorphone (>900 ng/mL) in urine. OXYCODONE Negative Negative 05/16/2025 11:28 PM EDT [facility] Comment: Oxycodone screening cut off value = 300 ng/mL This test is used for the detection of oxycodone and oxymorphone in urine. PHENCYCLIDINE Negative Negative 05/16/2025 11:28 PM EDT [facility] Comment:Phencyclidine screen ing cut off value = 25 ng/mL CANNABINOIDS Negative Negative 05/16/2025 11:28 PM EDT [facility] Comment:Cannabinoids/THC scr eening cut off value = 50 ng/mL Urine Barbiturates Negative Negative 2024 11:28 PM EDT [facility] Comment:Barbiturates screeni ng cut off value = 200 ng/mL BENZODIAZEPINES Negative Negative 11:28 PM EDT [facility] Comment:Benzodiazepines scre ening cut off value = 200 ng/mL Urine 05/16/2025 10:4 7 PM EDT 05/16/2025 10:58 PM EDT us Mary Lowe TRAVELING CONSTRUCTION SUPERINTENDENT-HOSPICE MASSAGE THERAPIST URINE ORDERABLES Final Result [facility] [address] [place] [address], * Lactate w/ Reflex (05/16/2025 10:44 PM EDT) LACTATE W/REFLEX 2.0 0.4 - 2.0 mmol/L 05/17/2025 12:12 AM EDT [facility] Blood Venous blood / Unknown 05/16/2025 10:44 PM EDT 05/16/2025 10:59 PM EDT Narrative [facility] - 05/17/2025 12:12 AM EDT Result did not trigger repeat Lactate, re-order if needed. Salome Chávez TRAVELING CONSTRUCTION SUPERINTENDENT-HOSPICE MASSAGE THERAPIST LAB BLOOD ORDERABLES Final Result [facility] [address] [place] [address], * Patel Top On Ice (05/16/2025 10:44 PM EDT) Extra Tube Auto Resulted 05/17/2025 12:02 AM EDT [facility] Blood Venous blood / Unknown 05/16/2025 10:44 PM EDT 05/16/2025 10:59 PM EDT Jd Pires MD LAB BLOOD ORDERABLES Final Re sult [facility] [address] [place] [address], * (ABNORMAL) CBC auto differential (05/16/2025 10:44 PM EDT) [facility] WBC 16.3(H) 4 - 11 x10E9/L 05/16/2025 11:31 PM EDT [facility] RBC Count 4.08 3.8 - 5.2 X10E12/L 05/16/2025 11:31 PM EDT [facility] Hemoglobin 12.4 11.7 - 15.5 g/dL 05/16/2025 11:31 PM EDT [facility] Hematocrit 37.2 35 - 47 % 05/16/2025 11:31 PM EDT [facility] MCV 91 80 - 100 fL 05/16/2025 11:31 PM EDT [facility] MCH 30.5 27 - 34 pg 05/16/2025 11:31 PM EDT [facility] MCHC 33.4 32 - 36 g/dL 05/16/2025 11:31 PM EDT [facility] RDW 14.3 11.5 - 15 % 05/16/2025 11:31 PM EDT [facility] Platelet Count 155 150 - 450 X10E9/L 05/16/2025 11:31 PM EDT [facility] MPV 9.8 7 - 12 fL 05/16/2025 11:31 PM EDT [facility] Neutrophils % 91.3 % 05/16/2025 11:31 PM EDT [facility] Lymphocytes % 3.3 % 05/16/2025 11:31 PM EDT [facility] Monocytes % 5.2 % 05/16/2025 11:31 PM EDT [facility] Eosinophils % 0.0 % 05/16/2025 11:31 PM EDT [facility] Basophils % 0.2 % 05/16/2025 11:31 PM EDT [facility] Neutrophils Absolute (A) 14.9(H) 1.5 - 6.6 10*3/uL 05/16/2025 11:31 PM EDT [facility] Lymphocytes Absolute 0.5(L) 1.0 - 3.5 10*3/uL 05/16/2025 11:31 PM EDT [facility] Monocytes Absolute 0.9 0.0 - 0.9 10*3/uL 05/16/2025 11:31 PM EDT [facility] Eosinophils Absolute 0.0 0.0 - 0.4 10*3/uL 05/16/2025 11:31 PM EDT [facility] Basophils Absolute 0.0 0.0 - 0.2 10*3/uL 05/16/2025 11:31 PM EDT [facility] Differential Type AUTOMATED DIFFERENTIAL 05/16/2025 11:31 PM EDT [facility] Blood Venous blood / Unknown 05/16/2025 10:44 PM EDT 05/16/2025 10:59 PM EDT us Mary Lowe TRAVELING CONSTRUCTION SUPERINTENDENT-HOSPICE MASSAGE THERAPIST LAB BLOOD ORDERABLES Fi nal Result [facility] [address] [place] [address], * Type and screen(includes indirect ellyn) (05/16/2025 10:44 PM EDT) ABO O 05/16/2025 11:47 PM EDT [facility] RH Positive 05/16/2025 11:47 PM EDT [facility] Antibody Screen Negative 05/16/2025 11:47 PM EDT [facility] Blood Venous blood / Unknown 05/16/2025 10:44 PM EDT 05/16/2025 10:57 PM EDT Mary Lowe TRAVELING CONSTRUCTION SUPERINTENDENT-HOSPICE MASSAGE THERAPIST BLOOD BANK TEST ORDERAB LES Edited Result - Final [facility] [address] [place] [address], [facility] [address] [place] [address], * Phosphorus (05/16/2025 10:43 PM EDT) PHOSPHORUS 2.8 2.4 - 4.9 mg/dL 05/17/2025 12:56 AM EDT [facility] Blood Venous blood / Unknown 05/16/2025 10:43 PM EDT 05/16/2025 10:59 PM EDT Salome Chávez TRAVELING CONSTRUCTION SUPERINTENDENT-HOSPICE MASSAGE THERAPIST LAB BLOOD ORDERABLES Final Result [facility] [address] [place] [address], * (ABNORMAL) Magnesium (05/16/2025 10:43 PM EDT) MAGNESIUM 1.7(L) 1.8 - 2.6 mg/dL 05/17/2025 12:56 AM EDT [facility] Blood Venous blood / Unknown 05/16/2025 10:43 PM EDT 05/16/2025 10:59 PM EDT us Salome Chávez TRAVELING CONSTRUCTION SUPERINTENDENT-HOSPICE MASSAGE THERAPIST LAB BLOOD ORDERABLES Final Result Performing Organization Address City/[facility]/ZIP Co de Phone Number [facility] [address] [place] [address], [place] [phone] * (ABNORMAL) Myoglobin, serum (05/16/2025 10:43 PM EDT) [facility] SERUM MYOGLOBIN 1,106.1(H) 14.3 - 65.8 ng/mL 05/17/2025 12:56 AM EDT [facility] Blood Venous blood / Unknown 05/16/2025 10:43 PM EDT 05/16/2025 10:59 PM EDT us Salome Chávez TRAVELING CONSTRUCTION SUPERINTENDENT-HOSPICE MASSAGE THERAPIST LAB BLOOD ORDERABLES Final Result Performing Organization Address City/[facility]/ZIP Co de Phone Number [facility] [address] [place] [address], [place] [phone] * (ABNORMAL) CK Total (05/16/2025 10:43 PM EDT) [facility] CPK 1,293(H) 24 - 170 U/L 05/17/2025 12:56 AM EDT [facility] Blood Venous blood / Unknown 05/16/2025 10:43 PM EDT 05/16/2025 10:59 PM EDT us Salome Chávez TRAVELING CONSTRUCTION SUPERINTENDENT-HOSPICE MASSAGE THERAPIST LAB BLOOD ORDERABLES Final Result [facility] [address] [place] [address], [place] [phone] * (ABNORMAL) Lipase (05/16/2025 10:43 PM EDT) Pathologist [facility] LIPASE <3(L) 11 - 82 U/L 05/16/2025 11:38 PM EDT [facility] Blood Venous blood / Unknown 05/16/2025 10:43 PM EDT 05/16/2025 10:59 PM EDT Mary Lowe TRAVELING CONSTRUCTION SUPERINTENDENT-HOSPICE MASSAGE THERAPIST LAB BLOOD ORDERABLES Fi nal Result [facility] [address] [place] [address], * Fibrinogen (05/16/2025 10:43 PM EDT) FIBRINOGEN 358 190 - 480 mg/dL 05/16/2025 11:37 PM EDT [facility] Blood Venous blood / Unknown 05/16/2025 10:43 PM EDT 05/16/2025 10:59 PM EDT Mary Lowe TRAVELING CONSTRUCTION SUPERINTENDENT-[facility] LAB BLOOD ORDERABLES Fi nal Result [facility] [address] [place] [address], * (ABNORMAL) Comprehensive metabolic panel (05/16/2025 10:43 PM EDT) SODIUM 141 134 - 146 mmol/L 05/16/2025 11:38 PM EDT [facility] POTASSIUM 3.8 3.5 - 5.0 mmol/L 05/16/2025 11:38 PM EDT [facility] CHLORIDE 107 98 - 109 mmol/L 05/16/2025 11:38 PM EDT [facility] CARBON DIOXIDE 23 22 - 32 mmol/L 05/16/2025 11:38 PM EDT [facility] ANION GAP 11 5 - 15 mmol/L 05/16/2025 11:38 PM EDT [facility] BLOOD UREA NITROGEN 15 5 - 27 mg/dL 05/16/2025 11:38 PM EDT [facility] CREATININE 0.65 0.40 - 1.00 mg/dL 05/16/2025 11:38 PM EDT [facility] Comment:METHOD TRACEABLE TO IDCO STANDARD GLUCOSE 158(H) 65 - 99 mg/dL 05/16/2025 11:38 PM EDT [facility] CALCIUM 8.4(L) 8.5 - 10.5 mg/dL 05/16/2025 11:38 PM EDT [facility] TOTAL PROTEIN 6.1 6.0 - 8.0 g/dL 05/16/2025 11:38 PM EDT [facility] ALBUMIN 3.6 3.2 - 5.3 g/dL 05/16/2025 11:38 PM EDT [facility] ALKALINE PHOSPHATASE 102 39 - 130 U/L 05/16/2025 11:38 PM EDT [facility] AST 32 <=41 U/L 05/16/2025 11:38 PM EDT [facility] ALT 11 <=31 U/L 05/16/2025 11:38 PM EDT [facility] BILIRUBIN,TOTAL 0.4 0.3 - 1.2 mg/dL 05/16/2025 11:38 PM EDT [facility] EGFR Non-Race Dependent 85 >=60 ml/min/1.7 3sq.m 05/16/2025 11:38 PM EDT [facility] Comment: Reported eGFR is based on the CKD-EPI 2020 equation that does not use a race coefficient. EGFR not calculated due to patient's gender not being defined. Blood Venous blood / Unknown 05/16/2025 10:43 PM EDT 05/16/2025 10:59 PM EDT us Mary Lowe TRAVELING CONSTRUCTION SUPERINTENDENT-HOSPICE MASSAGE THERAPIST LAB BLOOD ORDERABLES Fi nal Result [facility] [address] [place] [address], * Amylase (05/16/2025 10:43 PM EDT) AMYLASE 54 28 - 100 U/L 05/16/2025 11:38 PM EDT [facility] Blood Venous blood / Unknown 05/16/2025 10:43 PM EDT 05/16/2025 10:59 PM EDT Jefferyvickey Willis Lowe TRAVELING CONSTRUCTION SUPERINTENDENT-HOSPICE MASSAGE THERAPIST LAB BLOOD ORDERABLES Fi nal Result Performing Organization Address City/[facility]/ZIP Co de Phone Number [facility] [address] [place] [address], [place] [phone] * Ethanol (05/16/2025 10:43 PM EDT) [facility] ETHANOL <0.010 <=0.080 g/dL 05/16/2025 11:38 PM EDT [facility] Comment: This report is intended for use in clinical monitoring or management of patients. Blood Venous blood / Unknown 05/16/2025 10:43 PM EDT 05/16/2025 10:59 PM EDT Mary Lowe TRAVELING CONSTRUCTION SUPERINTENDENT-HOSPICE MASSAGE THERAPIST LAB BLOOD ORDERABLES Fi nal Result Performing Organization Address [facility] Co de Phone Number [facility] [address] [place] [address], [place] [phone] * (ABNORMAL) APTT (05/16/2025 10:43 PM EDT) [facility] APTT 24(L) 26 - 37 sec 05/16/2025 11:37 PM EDT [facility] Blood Venous blood / Unknown 05/16/2025 10:43 PM EDT 05/16/2025 10:59 PM EDT Mary Pedro Angiecandida TRAVELING CONSTRUCTION SUPERINTENDENT-HOSPICE MASSAGE THERAPIST LAB BLOOD ORDERABLES Fi nal Result Performing Organization Address City/[facility]/ZIP Co de Phone Number [facility] [address] [place] [address], [place] [phone] * Protime & INR (05/16/2025 10:43 PM EDT) PROTIME 11.4 9.8 - 13.2 sec 05/16/2025 11:37 PM EDT [facility] INR 1.0 0.9 - 1.2 05/16/2025 11:37 PM EDT [facility] Blood Venous blood / Unknown 05/16/2025 10:43 PM EDT 05/16/2025 10:59 PM EDT us Mary Lowe TRAVELING CONSTRUCTION SUPERINTENDENT-HOSPICE MASSAGE THERAPIST LAB BLOOD ORDERABLES Fi nal Result [facility] [address] [place] [address], documented in this encounter Visit Diagnoses Diagnosis ICH (intracerebral hemorrhage) (CMS-HCC)- Primary Intracerebral hemorrhage ICH (intracerebral hemorrhage) (CMS-HCC) Intracerebral hemorrhage Fall at home, initial encounter Closed fracture of right side of base of skull (CMS-HCC) Primary hypertension Unspecified essential hypertension Traumatic rhabdomyolysis documented in this encounter Admitting Diagnoses Diagnosis ICH (intracerebral hemorrhage) (CMS-[facility]) Intracerebral hemorrhage documented in this encounter Administered Medications Inactive Administered Medications - up to 3 most recent administrations Medication Order MAR Action Action Date Dose Rate Site acetaminophen (OFIRMEV) IVPB Premix 1,000 mg 1,000 mg, intravenous, at 400 mL/hr, Administer over 15 Minutes, Every 6 hours, First dose on 05/17/25 at 1715, For 24 hours New Bag 05/18/2025 10:43 AM EDT 1,000 mg 400 mL/h r New Bag 05/18/2025 5:06 AM EDT 1,000 mg 400 mL/hr New Bag 05/17/2025 10:17 PM EDT 1,000 mg 400 mL/hr acetaminophen (TYLENOL EXTRA STRENGTH) tablet 1,000 mg 1,000 mg, oral, Every 6 hours PRN, mild pain - pain scale 1-3, temperature greater than 38 C, headaches, moderate pain - pain scale 4-6, Starting on 05/19/25 at 0822 ampicillin-sulbactam (UNASYN) 3,000 mg in sodium chloride 0.9 % 100 mL IVPB W/ADAPTER 3,000 mg, intravenous, at 200 mL/hr, Administer over 30 Minutes, Every 6 hours, First dose on Mon05/17/25 at 1715, For 5 days, For Vial-2-Bag: Attach bag and vial to adapter - Use immediately after activating; dissolve drug prior to administration., Indication: Aspiration pneumonia New Bag 05/20/2025 11:23 AM EDT 3,000 mg 200 mL/hr New Bag 05/20/2025 5:19 AM EDT 3,000 mg 200 mL/hr New Bag 05/19/2025 11:00 PM EDT 3,000 mg 200 mL/hr calcium gluconate 3,000 mg in sodium chloride 0.9 % 100 mL IVPB 3,000 mg, intravenous, at 130 mL/hr, Administer over 60 Minutes, As needed, for ionized calcium level less than 3 mg/dL, Starting on Mon05/16/25 at 2253, CALL PHYSICIAN if this dose is administered. Recheck ionized calcium 6 hours after infusion. Hold calcium replacement for phosphorus greater than 5.5 mg/dL. VESICANT (RED) calcium gluconate IVPB 1000 mg/50 mL (20 mg/mL premix) 1,000 mg, intravenous, at 50 mL/hr, Administer over 60 Minutes, As needed, for ionized calcium level 3.5 to 4.4 mg/dL, Starting on Mon05/16/25 at 2253, Recheck ionized calcium 6 hours after infusion. Hold calcium replacement for phosphorus greater than 5.5 mg/dL. VESICANT (RED) calcium gluconate IVPB 2000 mg/100 mL (20 mg/mL premix) 2,000 mg, intravenous, at 100 mL/hr, Administer over 60 Minutes, As needed, for ionized calcium level 3 to 3.4 mg/dL, Starting on Mon05/16/25 at 2253, Recheck ionized calcium 6 hours after infusion. Hold calcium replacement for phosphorus greater than 5.5 mg/dL. VESICANT (RED) carvediloL (COREG) tablet 12.5 mg 12.5 mg, oral, 2 times daily, First dose on Mon05/19/25 at 0900, Give with meal or snack. Look-alike/sound-alike medication - verify indication for use. Given 05/20/2025 8:31 AM EDT 12.5 mg Given 05/19/2025 8:27 PM EDT 12.5 mg Given 05/19/2025 8:27 AM EDT 12.5 mg enoxaparin (LOVENOX) syringe 30 mg 30 mg, subcutaneous, Every 12 hours, First dose on Mon05/18/25 at 1800, Look-alike/sound-alike medication - verify indication for use. Given 05/20/2025 5:19 AM EDT 30 mg Abdom inal Tissue Given 05/19/2025 5:34 PM EDT 30 mg Ab dominal Tissue Given 05/19/2025 5:01 AM EDT 30 mg Ab dominal Tissue hydrALAZINE (APRESOLINE) injection 10 mg 10 mg, intravenous, Every 6 hours PRN, high blood pressure, SBP >140, give second, hold for HR >100, Starting on Mon05/16/25 at 2255, Look-alike/sound-alike medication - verify indication for use. Administer IV doses as a slow IV push; maximum rate: 5 mg/minute. Given 05/19/2025 4:50 AM EDT 10 mg Given 05/18/2025 6:52 PM EDT 10 mg Given 05/18/2025 9:06 AM EDT 10 mg hydrALAZINE (APRESOLINE) injection 10 mg 10 mg, intravenous, Every 6 hours PRN, high blood pressure, SBP>140 and HR <60 or if other agents ineffective., Starting on Mon05/19/25 at 0820, Look-alike/sound-alike medication - verify indication for use. Administer IV doses as a slow IV push; maximum rate: 5 mg/minute. Given 05/20/2025 1:00 PM EDT 10 mg labetaloL (NORMODYNE,TRANDATE) injection 10 mg 10 mg, intravenous, Every 10 min PRN, high blood pressure, SBP >140 and HR >60. MAX of 3 doses per hour., Starting on Mon05/19/25 at 0820, Look-alike/sound-alike medication - verify indication for use. Given 05/20/2025 12:13 PM EDT 10 mg Given 05/20/2025 11:32 AM EDT 10 mg Given 05/20/2025 10:12 AM EDT 10 mg labetaloL (NORMODYNE,TRANDATE) injection 20 mg 20 mg, intravenous, Every 10 min PRN, high blood pressure, Starting on Mon05/16/25 at 2256, For systolic blood pressure greater than 140 mmHg, give first, hold for HR <60; can give up to 3 times per hour Look-alike/sound-alike medication - verify indication for use. Given 05/19/2025 3:50 AM EDT 20 mg Given 05/19/2025 12:05 AM EDT 20 mg Given 05/18/2025 11:25 PM EDT 20 mg levETIRAcetam (KEPPRA) IVPB 1000 mg/100 mL in iso-osmotic sodium chloride (10 mg/mL premix) 1,000 mg, intravenous, at 400 mL/hr, Administer over 15 Minutes, Once, On Mon05/16/25 at 2225, For 1 dose, Look-alike/sound-alike medication - verify indication for use. New Bag 05/16/2025 10:55 PM EDT 1,000 mg 400 mL/hr levETIRAcetam (KEPPRA) IVPB 500 mg/100 mL in iso-osmotic sodium chloride (5 mg/mL premix) 500 mg, intravenous, at 400 mL/hr, Administer over 15 Minutes, Every 12 hours scheduled, First dose on 05/17/25 at 0900, For 7 days, Keppra 500mg IV daily every 12 hours may change to PO when taking PO Look-alike/sound-alike medication - verify indication for use. New Bag 05/18/2025 9:05 AM EDT 500 mg 400 mL/hr New Bag 05/17/2025 8:23 PM EDT 500 mg 400 mL/hr New Bag 05/17/2025 8:32 AM EDT 500 mg 400 mL/hr levETIRAcetam (KEPPRA) tablet 500 mg 500 mg, oral, Every 12 hours scheduled, First dose on Mon05/17/25 at 0900, For 7 days, When taking PO. if not able to take orally, give IV Look-alike/sound-alike medication - verify indication for use. Given 05/20/2025 8:31 AM EDT 500 mg Given 05/19/2025 8:27 PM EDT 500 mg Given 05/19/2025 8:27 AM EDT 500 mg loratadine (CLARITIN) tablet 10 mg 10 mg, oral, Daily, First dose on 05/19/25 at 1230, Look-alike/sound-alike medication - verify indication for use. Given 05/20/2025 8:31 AM EDT 10 mg Given 05/19/2025 2:42 PM EDT 10 mg magnesium sulfate IVPB 2000 mg/50 mL in iso-osmotic water (40 mg/mL premix) 2,000 mg, intravenous, at 25 mL/hr, Administer over 120 Minutes, As needed, for magnesium level 1.7 to 1.9 mg/dL or ionized magnesium level 0.45 to 0.5 mmol/L, Starting on Mon05/16/25 at 2253, Use premix solution. Default to ionized magnesium level in cases where patient has both magnesium and ionized magnesium results. If administered, check ionized magnesium (or total magnesium if ionized magnesium unavailable) level 4 hours after infusion. New Bag 05/17/2025 2:15 AM EDT 2,000 mg 25 mL/hr magnesium sulfate IVPB 4000 mg/100 mL in iso-osmotic water (40 mg/mL premix) 4,000 mg, intravenous, at 25 mL/hr, Administer over 240 Minutes, As needed, for magnesium level 1.6 mg/mL or less, or ionized magnesium level 0.44 mmol/L or less, Starting on Mon05/16/25 at 2253, Use premix solution. Default to ionized magnesium level in cases where patient has both magnesium and ionized magnesium results. If administered, check ionized magnesium (or total magnesium if ionized magnesium unavailable) level 4 hours after infusion. metoprolol tartrate (LOPRESSOR) tablet 50 mg 50 mg, oral, 2 times daily, First dose on Mon05/18/25 at 0900, Hold for HR less than 70 Look-alike/sound-alike medication - verify indication for use. Given 05/18/2025 8:06 PM EDT 50 mg pantoprazole (PROTONIX) injection 40 mg 40 mg, intravenous, Every morning before breakfast, First dose on Mon05/17/25 at 0700, Look-alike/sound-alike medication - verify indication for use., Indication: Other (CARLOS), Please specify: Stress Ulcer Prophylaxis Given 05/19/2025 6:04 AM EDT 40 mg Given 05/18/2025 6:31 AM EDT 40 mg Given 05/17/2025 6:12 AM EDT 40 mg potassium chloride (K-TAB,KLOR-CON) CR tablet 20-40 mEq 20-40 mEq, oral, As needed, for potassium replacement, Starting on Mon05/16/25 at 2253, Progress to oral potassium replacement when patient tolerating oral intake. If dose administered, recheck potassium level 4 hours after last dose. For potassium level 3.4 to 3.8 mmol/L and Serum Creatinine 1.2 or less=30 mEq. For potassium level 3.1 to 3.3 mmol/L and Serum Creatinine 1.2 or less=40 mEq. For potassium level 3 mmol/L or less and Serum Creatinine 1.2 or less=50 mEq. Forpotassium level 3.4 to 3.8 mmol/L and Serum Creatinine greater than 1.2=20 mEq. For potassium level 3.1 to 3.3 mmol/L and Serum Creatinine greater than 1.2=30 mEq. For potassium level 3 mmol/L or less and Serum Creatinine greater than 1.2=40 mEq. Do not crush or chew. Given 05/19/2025 6:03 AM EDT 30 mEq potassium chloride (KAYCIEL) 20 mEq/15 mL solution 20-40 mEq 20-40 mEq, oral, As needed, potassium replacement, Starting on Mon05/16/25 at 2253, Progress to oral potassium replacement when patient tolerating oral intake. If dose administered, recheck potassium level 4 hours after last dose. For potassium level 3.4 to 3.8 mmol/L and Serum Creatinine 1.2 or less=30 mEq (22.5mL). For potassium level 3.1 to 3.3 mmol/L and Serum Creatinine 1.2 or less=40 mEq (30mL). For potassium level 3 mmol/L or less and Serum Creatinine 1.2 or less=50 mEq (37.5mL). For potassium level 3.4 to 3.8 mmol/L and Serum Creatinine greater than 1.2=20 mEq (15mL). For potassium level 3.1 to 3.3 mmol/L and Serum Creatinine greater than 1.2=30 mEq (22.5mL). For potassium level 3 mmol/L or less and Serum Creatinine greater than 1.2=40 mEq (30mL). Must dilute before use - Mix in 3-8 ounces of water or juice before administration When administering in feeding tube, flush before and after per policy and monitor potassium levels potassium chloride IVPB 10 mEq/100 mL in water (0.1 mEq/mL premix) 10 mEq, intravenous, at 100 mL/hr, Administer over 60 Minutes, As needed, for potassium replacement, Starting on Mon05/16/25 at 2253, Administer Potassium Chloride IVPB in 10 mEq increments. Maximum infusion rates: Central Line = 20 mEq/hour; Peripheral Line = 10 mEq/hour (10 mEq/100 mL). If dose administered, recheck potassium level 1 hour after infusion complete. For potassium level 3.4 to 3.8 mmol/L and Serum Creatinine 1.2 or less = 30 mEq For potassium level 3.1 to 3.3 mmol/L and Serum Creatinine 1.2 or less = 40 mEq For potassium level 3 mmol/L or less and Serum Creatinine 1.2 or less = 50 mEq For potassium level 3.4 to 3.8 mmol/L and Serum Creatinine greater than 1.2 = 20 mEq For potassium level 3.1 to 3.3 mmol/L and Serum Creatinine greater than 1.2 = 30 mEq For potassium level 3 mmol/L or less and Serum Creatinine greater than 1.2 = 40 mEq VESICANT (YELLOW) Infuse each 10 mEq over a minimum of 1 hour. potassium chloride IVPB 10 mEq/50 mL in water (0.2 mEq/mL premix) 10 mEq, intravenous, at 50 mL/hr, Administer over 1 Hours, As needed, for potassium replacement, Starting on Mon05/16/25 at 2253, Administer Potassium Chloride IVPB in 10 mEq increments. Maximum infusion rates: Central Line = 20 mEq/hour. Administer via Central Line Only. If dose administered, recheck potassium level 1 hour after infusion complete. For potassium level 3.4 to 3.8 mmol/L and Serum Creatinine 1.2 or less = 30 mEq For potassium level 3.1 to 3.3 mmol/L and Serum Creatinine 1.2 or less = 40 mEq For potassium level 3 mmol/L or less and Serum Creatinine 1.2 or less = 50 mEq For potassium level 3.4 to 3.8 mmol/L and Serum Creatinine greater than 1.2 = 20 mEq For potassium level 3.1 to 3.3 mmol/L and Serum Creatinine greater than 1.2 = 30 mEq For potassium level 3 mmol/L or less and Serum Creatinine greater than 1.2 = 40 mEq VESICANT (YELLOW) sennosides-docusate sodium (SENOKOT-S) 8.6-50 mg 2 tablet 2 tablet, oral, Nightly, First dose on Mon05/16/25 at 2255, Administer when tolerating diet. Hold medication for diarrhea. Given 05/19/2025 8:27 PM EDT 2 tablets Given 05/18/2025 8:06 PM EDT 2 tablets sod phos di, mono-K phos mono (K-PHOS NEUTRAL) 250 mg tablet 2 tablet 2 tablet, oral, As needed, for phosphorous level 2.3 mg/dL or less, Starting on Mon05/16/25 at 2253, If dose administered, recheck phosphorus level 4 hours after last dose. Look-alike/sound-alike medication - verify indication for use. Give with a full glass of water. sodium chloride 0.9 % bolus 1,000 mL, intravenous, at 500 mL/hr, Administer over 2 Hours, Once, On Mon05/16/25 at 2300, For 1 dose New Bag 05/16/2025 10:59 PM EDT 1,000 mL 500 mL/hr sodium chloride 0.9 % flush 3 mL 3 mL, intravenous, Every 12 hours scheduled, First dose on Mon05/16/25 at 2255 Given 05/20/2025 8:31 AM EDT 3 mL Given 05/19/2025 8:27 PM EDT 3 mL Given 05/19/2025 8:27 AM EDT 3 mL sodium chloride 0.9 % infusion 100 mL/hr, intravenous, Continuous, Starting on Mon05/16/25 at 2255, For 1 day New Bag 05/17/2025 1:34 AM EDT 100 mL/hr 100 mL/hr sodium phosphate 20 mmol in sodium chloride 0.9 % 100 mL IVPB 20 mmol, intravenous, at 26.7 mL/hr, Administer over 4 Hours, As needed, for phosphorous level 2.3 mg/dL or less, Starting on Mon05/16/25 at 2253, Administer over 4 hours via dedicated line(central line). If administered, recheck phosphorus level 4 hours after infusion complete. Infuse using central line access. sodium phosphate 20 mmol in sodium chloride 0.9 % 250 mL IVPB 20 mmol, intravenous, at 42.8 mL/hr, Administer over 6 Hours, As needed, for phosphorous level 2.3 mg/dL or less, Starting on Mon05/16/25 at 2253, Administer over 6 hours via dedicated line (peripheral line). If administered, recheck phosphorus level 4 hours after infusion complete. documented in this encounter Active and Recently Administered Medications Times are shown in EDT. Scheduled Medication Order 05/18/2025 05/19/2025 05/20/2025 acetaminophen (OFIRMEV) IVPB Premix 1,000 mg (COMPLETED) 1,000 mg, intravenous, at 400 mL/hr, Administer over 15 Minutes, Every 6 hours, First dose on 05/17/25 at 1715, For 24 hours 0506 (New Bag - Provider: Emily Byrne RN)0521 (Stop Bag - Provider: Emily Byrne RN)1043 (New Bag - Provider: Sofia Buckner, VERONICA)1058 (Stop Bag - Provider: Sofia Buckner, VERONICA) ampicillin-sulbactam (UNASYN) 3,000 mg in sodium chloride 0.9 % 100 mL IVPB W/ADAPTER 3,000 mg, intravenous, at 200 mL/hr, Administer over 30 Minutes, Every 6 hours, First dose on 05/17/25 at 1715, For 5 days, For Vial-2-Bag: Attach bag and vial to adapter - Use immediately after activating; dissolve drug prior to administration., Indication: Aspiration pneumonia 0423 (New Bag - Provider: Emily Byrne RN)0453 (Stop Bag - Provider: Emily Byrne RN)1110 (New Bag - Provider: Sofia Buckner RN)1140 (Stop Bag - Provider: Sofia Buckner, VERONICA)1711 (New Bag - Provider: Mike Leon, VERONICA)1741 (Stop Bag - Provider: Mike Leon, VERONICA)2224 (New Bag - Provider: Emily Byrne RN)2254 (Stop Bag - Provider: Emily Byrne RN) 0455 (New Bag - Provider: Emily Byrne RN)0525 (Stop Bag - Provider: Emily Byrne RN)1128 (New Bag - Provider: Jude Tafoya RN)1158 (Stop Bag - Provider: Jude Tafoya, RN)1737 (New Bag - Provider: Jude Tafoya RN)1807 (Stop Bag - Provider: Jude Tafoya RN)2300 (New Bag - Provider: Nilda Caraballo RN)2330 (Stop Bag - Provider: Nilda Caraballo RN) 0519 (New Bag - Provider: Nilda Caraballo RN)0549 (Stop Bag - Provider: Nilda Caraballo RN)1123 (New Bag - Provider: Linda Valadez RN)1153 (Stop Bag - Provider: Linda Valadez RN) carvediloL (COREG) tablet 12.5 mg 12.5 mg, oral, 2 times daily, First dose on Mon05/19/25 at 0900, Give with meal or snack. Look-alike/sound-alike medication - verify indication for use. 0827 (Given - Provider: Jude Tafoya RN)2027 (Given - Provider: Nilda Caraballo, VERONICA) 0831 (Given - Provider: Linda Valadez, VERONICA) enoxaparin (LOVENOX) syringe 30 mg 30 mg, subcutaneous, Every 12 hours, First dose on Mon05/18/25 at 1800, Look-alike/sound-alike medication - verify indication for use. 1704 (Given - Provider: Mike Leon RN) 0501 (Given - Provider: Emily Byrne RN)1734 (Given - Provider: Jude Tafoya, VERONICA) 0519 (Given - Provider: Nilda Caraballo, VERONICA) levETIRAcetam (KEPPRA) IVPB 500 mg/100 mL in iso-osmotic sodium chloride (5 mg/mL premix)(Linked Group 1) 500 mg, intravenous, at 400 mL/hr, Administer over 15 Minutes, Every 12 hours scheduled, First dose on Mon05/17/25 at 0900, For 7 days, Keppra 500mg IV daily every 12 hours may change to PO when taking PO Look-alike/sound-alike medication - verify indication for use. 0905 (New Bag - Provider: Sofia Buckner RN)0920 (Stop Bag - Provider: Sofia Buckner RN)2005 (See Alternative - Provider: Emily Byrne RN) 826 (See Alternative - Provider: Jude Tafoya RN)2026 (See Alternative - Provider: Nilda Caraballo, RN) 0831 (See Alternative - Provider: Linda Valadez RN) levETIRAcetam (KEPPRA) tablet 500 mg(Linked Group 1) 500 mg, oral, Every 12 hours scheduled, First dose on 05/17/25 at 0900, For 7 days, When taking PO. if not able to take orally, give IV Look-alike/sound-alike medication - verify indication for use. 09 (See Alternative - Provider: Sofia Buckner RN)09 (See Alternative - Provider: Sofia Buckner RN)2005 (Given - Provider: Emily Byrne RN) 826 (Given - Provider: Jude Tafoya RN)2026 (Given - Provider: Nilda Caraballo, RN) 0831 (Given - Provider: Linda Valadez, VERONICA) loratadine (CLARITIN) tablet 10 mg 10 mg, oral, Daily, First dose on 05/19/25 at 1230, Look-alike/sound-alike medication - verify indication for use. 1442 (Given - Provider: Jude Tafoya RN) 830 (Given - Provider: Linda Valadez, RN) metoprolol tartrate (LOPRESSOR) tablet 50 mg (CANCELED) 50 mg, oral, 2 times daily, First dose on 05/18/25 at 0900, Hold for HR less than 70 Look-alike/sound-alike medication - verify indication for use. 0900 (Hold - Provider: Sofia Buckner RN - Reason: Order parameters not met)2005 (Given - Provider: Emily Byrne RN) pantoprazole (PROTONIX) injection 40 mg (CANCELED) 40 mg, intravenous, Every morning before breakfast, First dose on 05/17/25 at 0700, Look-alike/sound-alike medication - verify indication for use., Indication: Other (CARLOS), Please specify: Stress Ulcer Prophylaxis 0631 (Given - Provider: Emily Byrne RN) 0604 (Given - Provider: Emily Byrne RN) sennosides-docusate sodium (SENOKOT-S) 8.6-50 mg 2 tablet 2 tablet, oral, Nightly, First dose on Mon05/16/25 at 2255, Administer when tolerating diet. Hold medication for diarrhea. 2005 (Given - Provider: Emily Byrne RN)2199 (Canceled Entry - Provider: Emily Byrne RN) 2026 (Given - Provider: Nilda Caraballo, RN) sodium chloride 0.9 % flush 3 mL 3 mL, intravenous, Every 12 hours scheduled, First dose on Mon05/16/25 at 2255 0905 (Given - Provider: Sofia Buckner RN)2005 (Given - Provider: Emily Byrne RN) 08 (Given - Provider: Jude Tafoya RN)2026 (Given - Provider: Nilda Caraballo, RN) 0831 (Given - Provider: Linda Valadez RN) PRN Medication Order 05/18/2025 05/19/2025 05/20/2025 acetaminophen (TYLENOL EXTRA STRENGTH) tablet 1,000 mg 1,000 mg, oral, Every 6 hours PRN, mild pain - pain scale 1-3, temperature greater than 38 C, headaches, moderate pain - pain scale 4-6, Starting on Mon05/19/25 at 0822 calcium gluconate 3,000 mg in sodium chloride 0.9 % 100 mL IVPB(Linked Group 2) 3,000 mg, intravenous, at 130 mL/hr, Administer over 60 Minutes, As needed, for ionized calcium level less than 3 mg/dL, Starting on Mon05/16/25 at 2253, CALL PHYSICIAN if this dose is administered. Recheck ionized calcium 6 hours after infusion. Hold calcium replacement for phosphorus greater than 5.5 mg/dL. VESICANT (RED) calcium gluconate IVPB 1000 mg/50 mL (20 mg/mL premix)(Linked Group 2) 1,000 mg, intravenous, at 50 mL/hr, Administer over 60 Minutes, As needed, for ionized calcium level 3.5 to 4.4 mg/dL, Starting on Mon05/16/25 at 2253, Recheck ionized calcium 6 hours after infusion. Hold calcium replacement for phosphorus greater than 5.5 mg/dL. VESICANT (RED) calcium gluconate IVPB 2000 mg/100 mL (20 mg/mL premix)(Linked Group 2) 2,000 mg, intravenous, at 100 mL/hr, Administer over 60 Minutes, As needed, for ionized calcium level 3 to 3.4 mg/dL, Starting on Mon05/16/25 at 2253, Recheck ionized calcium 6 hours after infusion. Hold calcium replacement for phosphorus greater than 5.5 mg/dL. VESICANT (RED) dextrose (GLUTOSE) 40 % gel 15 g 15 g, oral, As needed, low blood sugar, blood glucose less than 70 mg/dL, Starting on Mon05/16/25 at 2254, If patient conscious and taking PO. If blood glucose is not greater than 70 mg/dL after initial treatment, repeat treatment. dextrose 5 % (D5W) infusion 100 mL/hr, intravenous, Continuous PRN, blood glucose less than 70 mg/dL, Starting on Mon05/16/25 at 2254, For 365 days, Use immediately following dextrose 50% or glucagon treatment for patients who are unconscious or NPO. Contact prescriber for additional orders. If blood glucose is not greater than 70 mg/dL after initial treatment, repeat treatment. dextrose 50 % in water (D50W) 50% solution 25 mL 25 mL, intravenous, As needed, low blood sugar, blood glucose less than 70 mg/dL and unconscious or NPO with IV access, Starting on Mon05/16/25 at 2254, Push over 1-3 minutes STAT. If conscious and not NPO, immediately follow with meal tray or high protein (7 grams) snack if tray not available. If NPO, initiate 5% dextrose in water at 100 mL/hr and contact prescriber for additional orders. If blood glucose is not greater than 70 mg/dL after initial treatment, repeat treatment. VESICANT (RED) Warning: HYPERTONIC solution. glucagon HCL injection 1 mg 1 mg, intramuscular, As needed, low blood sugar, blood glucose less than 70 mg/dL and unconscious or NPO without IV access., Starting on Mon05/16/25 at 2254, If conscious and not NPO, immediately follow with meal tray or high protein (7Grams) snack if tray not available. If NPO, initiate IV 5% Dextrose/Water at 100 mL/hr and contact prescriber for additional orders. If blood glucose is not greater than 70 mg/dL after initial treatment, repeat treatment. hydrALAZINE (APRESOLINE) injection 10 mg (CANCELED) 10 mg, intravenous, Every 6 hours PRN, high blood pressure, SBP >140, give second, hold for HR >100, Starting on Mon05/16/25 at 2255, Look-alike/sound-alike medication - verify indication for use. Administer IV doses as a slow IV push; maximum rate: 5 mg/minute. 0906 (Given - Provider: Sofia Buckner RN)1852 (Given - Provider: Mike Leon, VERONICA) 0450 (Given - Provider: Emily Byrne RN) hydrALAZINE (APRESOLINE) injection 10 mg 10 mg, intravenous, Every 6 hours PRN, high blood pressure, SBP>140 and HR <60 or if other agents ineffective., Starting on Mon05/19/25 at 0820, Look-alike/sound-alike medication - verify indication for use. Administer IV doses as a slow IV push; maximum rate: 5 mg/minute. 1300 (Given - Provider: Linda Valadez RN) labetaloL (NORMODYNE,TRANDATE) injection 10 mg 10 mg, intravenous, Every 10 min PRN, high blood pressure, SBP >140 and HR >60. MAX of 3 doses per hour., Starting on Mon05/19/25 at 0820, Look-alike/sound-alike medication - verify indication for use. 1012 (Given - Provider: Linda Valadez, RN)1132 (Given - Provider: Linda Valadez, RN)1213 (Given - Provider: Linda Valadez RN) labetaloL (NORMODYNE,TRANDATE) injection 20 mg (CANCELED) 20 mg, intravenous, Every 10 min PRN, high blood pressure, Starting on Mon05/16/25 at 2256, For systolic blood pressure greater than 140 mmHg, give first, hold for HR <60; can give up to 3 times per hour Look-alike/sound-alike medication - verify indication for use. 0245 (Given - Provider: Emily Byrne, VERONICA)0300 (Canceled Entry - Provider: Emily Byrne RN)0400 (Given - Provider: Emily Byrne RN)0500 (Canceled Entry - Provider: Emily Byrne RN)0530 (Given - Provider: Emily Byrne RN)0630 (Given - Provider: Emily Byrne RN)1517 (Given - Provider: Mike Leon RN)1704 (Given - Provider: Mike Leon, RN)2105 (Given - Provider: Emily Byrne, RN)2220 (Given - Provider: Emily Byrne RN)2230 (Given - Provider: Emily Byrne, RN)2315 (Given - Provider: Emily Byrne, RN)2325 (Given - Provider: Emily Byrne RN) 0005 (Given - Provider: Emily Byrne RN)0350 (Given - Provider: Emily Byrne RN)0452 (Canceled Entry - Provider: Emily Byrne RN) magnesium sulfate IVPB 2000 mg/50 mL in iso-osmotic water (40 mg/mL premix)(Linked Group 3) 2,000 mg, intravenous, at 25 mL/hr, Administer over 120 Minutes, As needed, for magnesium level 1.7 to 1.9 mg/dL or ionized magnesium level 0.45 to 0.5 mmol/L, Starting on Mon05/16/25 at 2253, Use premix solution. Default to ionized magnesium level in cases where patient has both magnesium and ionized magnesium results. If administered, check ionized magnesium (or total magnesium if ionized magnesium unavailable) level 4 hours after infusion. magnesium sulfate IVPB 4000 mg/100 mL in iso-osmotic water (40 mg/mL premix)(Linked Group 3) 4,000 mg, intravenous, at 25 mL/hr, Administer over 240 Minutes, As needed, for magnesium level 1.6 mg/mL or less, or ionized magnesium level 0.44 mmol/L or less, Starting on Mon05/16/25 at 2253, Use premix solution. Default to ionized magnesium level in cases where patient has both magnesium and ionized magnesium results. If administered, check ionized magnesium (or total magnesium if ionized magnesium unavailable) level 4 hours after infusion. ondansetron (PF) (ZOFRAN) injection 4 mg 4 mg, intravenous, Every 6 hours PRN, nausea, Starting on Mon05/16/25 at 2254, Intravenous administration preferred to be given over 2-5 minutes. polyethylene glycol (GLYCOLAX) packet 17 g 17 g, oral, Daily PRN, constipation, Starting on Mon05/16/25 at 2254, Look-alike/sound-alike medication - verify indication for use. Dissolve 1 packet (17 gm) in 8 ounces of water, juice, soda, coffee or tea. potassium chloride (K-TAB,KLOR-CON) CR tablet 20-40 mEq(Linked Group 4) 20-40 mEq, oral, As needed, for potassium replacement, Starting on Mon05/16/25 at 2253, Progress to oral potassium replacement when patient tolerating oral intake. If dose administered, recheck potassium level 4 hours after last dose. For potassium level 3.4 to 3.8 mmol/L and Serum Creatinine 1.2 or less=30 mEq. For potassium level 3.1 to 3.3 mmol/L and Serum Creatinine 1.2 or less=40 mEq. For potassium level 3 mmol/L or less and Serum Creatinine 1.2 or less=50 mEq. Forpotassium level 3.4 to 3.8 mmol/L and Serum Creatinine greater than 1.2=20 mEq. For potassium level 3.1 to 3.3 mmol/L and Serum Creatinine greater than 1.2=30 mEq. For potassium level 3 mmol/L or less and Serum Creatinine greater than 1.2=40 mEq. Do not crush or chew. 0603 (Given - Provider: Emily Byrne RN) potassium chloride (KAYCIEL) 20 mEq/15 mL solution 20-40 mEq(Linked Group 4) 20-40 mEq, oral, As needed, potassium replacement, Starting on Mon05/16/25 at 2253, Progress to oral potassium replacement when patient tolerating oral intake. If dose administered, recheck potassium level 4 hours after last dose. For potassium level 3.4 to 3.8 mmol/L and Serum Creatinine 1.2 or less=30 mEq (22.5mL). For potassium level 3.1 to 3.3 mmol/L and Serum Creatinine 1.2 or less=40 mEq (30mL). For potassium level 3 mmol/L or less and Serum Creatinine 1.2 or less=50 mEq (37.5mL). For potassium level 3.4 to 3.8 mmol/L and Serum Creatinine greater than 1.2=20 mEq (15mL). For potassium level 3.1 to 3.3 mmol/L and Serum Creatinine greater than 1.2=30 mEq (22.5mL). For potassium level 3 mmol/L or less and Serum Creatinine greater than 1.2=40 mEq (30mL). Must dilute before use - Mix in 3-8 ounces of water or juice before administration When administering in feeding tube, flush before and after per policy and monitor potassium levels 0603 (See Alternative - Provider: Emily Byrne RN) potassium chloride IVPB 10 mEq/100 mL in water (0.1 mEq/mL premix)(Linked Group 5) 10 mEq, intravenous, at 100 mL/hr, Administer over 60 Minutes, As needed, for potassium replacement, Starting on Mon05/16/25 at 2253, Administer Potassium Chloride IVPB in 10 mEq increments. Maximum infusion rates: Central Line = 20 mEq/hour; Peripheral Line = 10 mEq/hour (10 mEq/100 mL). If dose administered, recheck potassium level 1 hour after infusion complete. For potassium level 3.4 to 3.8 mmol/L and Serum Creatinine 1.2 or less = 30 mEq For potassium level 3.1 to 3.3 mmol/L and Serum Creatinine 1.2 or less = 40 mEq For potassium level 3 mmol/L or less and Serum Creatinine 1.2 or less = 50 mEq For potassium level 3.4 to 3.8 mmol/L and Serum Creatinine greater than 1.2 = 20 mEq For potassium level 3.1 to 3.3 mmol/L and Serum Creatinine greater than 1.2 = 30 mEq For potassium level 3 mmol/L or less and Serum Creatinine greater than 1.2 = 40 mEq VESICANT (YELLOW) Infuse each 10 mEq over a minimum of 1 hour. potassium chloride IVPB 10 mEq/50 mL in water (0.2 mEq/mL premix)(Linked Group 5) 10 mEq, intravenous, at 50 mL/hr, Administer over 1 Hours, As needed, for potassium replacement, Starting on Mon05/16/25 at 2253, Administer Potassium Chloride IVPB in 10 mEq increments. Maximum infusion rates: Central Line = 20 mEq/hour. Administer via Central Line Only. If dose administered, recheck potassium level 1 hour after infusion complete. For potassium level 3.4 to 3.8 mmol/L and Serum Creatinine 1.2 or less = 30 mEq For potassium level 3.1 to 3.3 mmol/L and Serum Creatinine 1.2 or less = 40 mEq For potassium level 3 mmol/L or less and Serum Creatinine 1.2 or less = 50 mEq For potassium level 3.4 to 3.8 mmol/L and Serum Creatinine greater than 1.2 = 20 mEq For potassium level 3.1 to 3.3 mmol/L and Serum Creatinine greater than 1.2 = 30 mEq For potassium level 3 mmol/L or less and Serum Creatinine greater than 1.2 = 40 mEq VESICANT (YELLOW) sod phos di, mono-K phos mono (K-PHOS NEUTRAL) 250 mg tablet 2 tablet(Linked Group 6) 2 tablet, oral, As needed, for phosphorous level 2.3 mg/dL or less, Starting on Mon05/16/25 at 2253, If dose administered, recheck phosphorus level 4 hours after last dose. Look-alike/sound-alike medication - verify indication for use. Give with a full glass of water. sodium chloride 0.9 % flush 3 mL 3 mL, intravenous, As needed, line care, before and after each intermittent use, Starting on Mon05/16/25 at 2254 sodium phosphate 20 mmol in sodium chloride 0.9 % 100 mL IVPB(Linked Group 6) 20 mmol, intravenous, at 26.7 mL/hr, Administer over 4 Hours, As needed, for phosphorous level 2.3 mg/dL or less, Starting on Mon05/16/25 at 2253, Administer over 4 hours via dedicated line(central line). If administered, recheck phosphorus level 4 hours after infusion complete. Infuse using central line access. sodium phosphate 20 mmol in sodium chloride 0.9 % 250 mL IVPB(Linked Group 6) 20 mmol, intravenous, at 42.8 mL/hr, Administer over 6 Hours, As needed, for phosphorous level 2.3 mg/dL or less, Starting on Mon05/16/25 at 2253, Administer over 6 hours via dedicated line (peripheral line). If administered, recheck phosphorus level 4 hours after infusion complete. Linked Groups Order Group 1: levETIRAcetam (KEPPRA) IVPB 500 mg/100 mL in iso-osmotic sodium chloride (5 mg/mL premix)Jump to med 500 mg, intravenous, at 400 mL/hr, Administer over 15 Minutes, Every 12 hours scheduled, First dose on Mon05/17/25 at 0900, For 7 days, Keppra 500mg IV daily every 12 hours may change to PO when taking PO Look-alike/sound-alike medication - verify indication for use. Or levETIRAcetam (KEPPRA) tablet 500 mgJump to med 500 mg, oral, Every 12 hours scheduled, First dose on Mon05/17/25 at 0900, For 7 days, When taking PO. if not able to take orally, give IV Look-alike/sound-alike medication - verify indication for use. Group 2: calcium gluconate IVPB 1000 mg/50 mL (20 mg/mL premix)Jump to med 1,000 mg, intravenous, at 50 mL/hr, Administer over 60 Minutes, As needed, for ionized calcium level 3.5 to 4.4 mg/dL, Starting on Mon05/16/25 at 2253, Recheck ionized calcium 6 hours after infusion. Hold calcium replacement for phosphorus greater than 5.5 mg/dL. VESICANT (RED) Or calcium gluconate IVPB 2000 mg/100 mL (20 mg/mL premix)Jump to med 2,000 mg, intravenous, at 100 mL/hr, Administer over 60 Minutes, As needed, for ionized calcium level 3 to 3.4 mg/dL, Starting on Mon05/16/25 at 2253, Recheck ionized calcium 6 hours after infusion. Hold calcium replacement for phosphorus greater than 5.5 mg/dL. VESICANT (RED) Or calcium gluconate 3,000 mg in sodium chloride 0.9 % 100 mL IVPBJump to med 3,000 mg, intravenous, at 130 mL/hr, Administer over 60 Minutes, As needed, for ionized calcium level less than 3 mg/dL, Starting on Mon05/16/25 at 2253, CALL PHYSICIAN if this dose is administered. Recheck ionized calcium 6 hours after infusion. Hold calcium replacement for phosphorus greater than 5.5 mg/dL. VESICANT (RED) Group 3: magnesium sulfate IVPB 2000 mg/50 mL in iso-osmotic water (40 mg/mL premix)Jump to med 2,000 mg, intravenous, at 25 mL/hr, Administer over 120 Minutes, As needed, for magnesium level 1.7 to 1.9 mg/dL or ionized magnesium level 0.45 to 0.5 mmol/L, Starting on Mon05/16/25 at 2253, Use premix solution. Default to ionized magnesium level in cases where patient has both magnesium and ionized magnesium results. If administered, check ionized magnesium (or total magnesium if ionized magnesium unavailable) level 4 hours after infusion. Or magnesium sulfate IVPB 4000 mg/100 mL in iso-osmotic water (40 mg/mL premix)Jump to med 4,000 mg, intravenous, at 25 mL/hr, Administer over 240 Minutes, As needed, for magnesium level 1.6 mg/mL or less, or ionized magnesium level 0.44 mmol/L or less, Starting on Mon05/16/25 at 2253, Use premix solution. Default to ionized magnesium level in cases where patient has both magnesium and ionized magnesium results. If administered, check ionized magnesium (or total magnesium if ionized magnesium unavailable) level 4 hours after infusion. Group 4: potassium chloride (K-TAB,KLOR-CON) CR tablet 20-40 mEqJump to med 20-40 mEq, oral, As needed, for potassium replacement, Starting on Mon05/16/25 at 2253, Progress to oral potassium replacement when patient tolerating oral intake. If dose administered, recheck potassium level 4 hours after last dose. For potassium level 3.4 to 3.8 mmol/L and Serum Creatinine 1.2 or less=30 mEq. For potassium level 3.1 to 3.3 mmol/L and Serum Creatinine 1.2 or less=40 mEq. For potassium level 3 mmol/L or less and Serum Creatinine 1.2 or less=50 mEq. Forpotassium level 3.4 to 3.8 mmol/L and Serum Creatinine greater than 1.2=20 mEq. For potassium level 3.1 to 3.3 mmol/L and Serum Creatinine greater than 1.2=30 mEq. For potassium level 3 mmol/L or less and Serum Creatinine greater than 1.2=40 mEq. Do not crush or chew. Or potassium chloride (KAYCIEL) 20 mEq/15 mL solution 20-40 mEqJump to med 20-40 mEq, oral, As needed, potassium replacement, Starting on Mon05/16/25 at 2253, Progress to oral potassium replacement when patient tolerating oral intake. If dose administered, recheck potassium level 4 hours after last dose. For potassium level 3.4 to 3.8 mmol/L and Serum Creatinine 1.2 or less=30 mEq (22.5mL). For potassium level 3.1 to 3.3 mmol/L and Serum Creatinine 1.2 or less=40 mEq (30mL). For potassium level 3 mmol/L or less and Serum Creatinine 1.2 or less=50 mEq (37.5mL). For potassium level 3.4 to 3.8 mmol/L and Serum Creatinine greater than 1.2=20 mEq (15mL). For potassium level 3.1 to 3.3 mmol/L and Serum Creatinine greater than 1.2=30 mEq (22.5mL). For potassium level 3 mmol/L or less and Serum Creatinine greater than 1.2=40 mEq (30mL). Must dilute before use - Mix in 3-8 ounces of water or juice before administration When administering in feeding tube, flush before and after per policy and monitor potassium levels Group 5: potassium chloride IVPB 10 mEq/50 mL in water (0.2 mEq/mL premix)Jump to med 10 mEq, intravenous, at 50 mL/hr, Administer over 1 Hours, As needed, for potassium replacement, Starting on Mon05/16/25 at 2253, Administer Potassium Chloride IVPB in 10 mEq increments. Maximum infusion rates: Central Line = 20 mEq/hour. Administer via Central Line Only. If dose administered, recheck potassium level 1 hour after infusion complete. For potassium level 3.4 to 3.8 mmol/L and Serum Creatinine 1.2 or less = 30 mEq For potassium level 3.1 to 3.3 mmol/L and Serum Creatinine 1.2 or less = 40 mEq For potassium level 3 mmol/L or less and Serum Creatinine 1.2 or less = 50 mEq For potassium level 3.4 to 3.8 mmol/L and Serum Creatinine greater than 1.2 = 20 mEq For potassium level 3.1 to 3.3 mmol/L and Serum Creatinine greater than 1.2 = 30 mEq For potassium level 3 mmol/L or less and Serum Creatinine greater than 1.2 = 40 mEq VESICANT (YELLOW) Or potassium chloride IVPB 10 mEq/100 mL in water (0.1 mEq/mL premix)Jump to med 10 mEq, intravenous, at 100 mL/hr, Administer over 60 Minutes, As needed, for potassium replacement, Starting on Mon05/16/25 at 2253, Administer Potassium Chloride IVPB in 10 mEq increments. Maximum infusion rates: Central Line = 20 mEq/hour; Peripheral Line = 10 mEq/hour (10 mEq/100 mL). If dose administered, recheck potassium level 1 hour after infusion complete. For potassium level 3.4 to 3.8 mmol/L and Serum Creatinine 1.2 or less = 30 mEq For potassium level 3.1 to 3.3 mmol/L and Serum Creatinine 1.2 or less = 40 mEq For potassium level 3 mmol/L or less and Serum Creatinine 1.2 or less = 50 mEq For potassium level 3.4 to 3.8 mmol/L and Serum Creatinine greater than 1.2 = 20 mEq For potassium level 3.1 to 3.3 mmol/L and Serum Creatinine greater than 1.2 = 30 mEq For potassium level 3 mmol/L or less and Serum Creatinine greater than 1.2 = 40 mEq VESICANT (YELLOW) Infuse each 10 mEq over a minimum of 1 hour. Group 6: sodium phosphate 20 mmol in sodium chloride 0.9 % 250 mL IVPBJump to med 20 mmol, intravenous, at 42.8 mL/hr, Administer over 6 Hours, As needed, for phosphorous level 2.3 mg/dL or less, Starting on Mon05/16/25 at 2253, Administer over 6 hours via dedicated line (peripheral line). If administered, recheck phosphorus level 4 hours after infusion complete. Or sodium phosphate 20 mmol in sodium chloride 0.9 % 100 mL IVPBJump to med 20 mmol, intravenous, at 26.7 mL/hr, Administer over 4 Hours, As needed, for phosphorous level 2.3 mg/dL or less, Starting on Mon05/16/25 at 2253, Administer over 4 hours via dedicated line(central line). If administered, recheck phosphorus level 4 hours after infusion complete. Infuse using central line access. Or sod phos di, mono-K phos mono (K-PHOS NEUTRAL) 250 mg tablet 2 tabletJump to med 2 tablet, oral, As needed, for phosphorous level 2.3 mg/dL or less, Starting on Mon05/16/25 at 2253, If dose administered, recheck phosphorus level 4 hours after last dose. Look-alike/sound-alike medication - verify indication for use. Give with a full glass of water. documented in this encounter Additional Health Concerns Assessment Noted Time PHQ-9 Depression Total Score: 1 05/19/20 2:52 PM EDT documented as of this encounter Care Teams Electrician Journeyman Wireman Relationship Specialty Start Date End Date [place] [address] [place] [address] PCP - General Family Medicine 05/17/25 documented as of this encounter
--- OUTSIDE RECORDS SUMMARY | 2025-05-16 22:25 | XMS_ITS | Encounter Summary ---
Author Organization [facility] Address [id number] [address] [place] [address] Care Team Providers Care Programming Director Name Role Phone Pcp, Not In System Primary Care Provider Unavail able Reason for Visit * Diagnostic Imaging (Routine) - Closed Specialty Diagnoses / Procedures Referred By Contac t Referred To Contact Radiology Diagnoses Pain Procedures CT abdomen and pelvis without contrast [facility] [address] [place] [phone] Phone: tel: fax: Referral ID Status Reason Start Date Expiration Date Visits Re quested Visits Authorized [id number] Closed 05/16/2025 05/16/2026 1 1 Encounter Details Date Type Department Care Team (Late st Contact Info) Description 05/16/2025 10:25 PM EDT Ancillary Procedure [facility] [address] [place] [phone] Pain Social History Tobacco Use Types Packs/Day Years Used Date Smoking Tobacco: Never Assessed [facility] Utilities Answer Date Recorded In the past 12 months has [employer] electric, gas, oil, or water company threatened [...] Name Priority Date/Time Associated Diagnosis Comments CT ABDOMEN AND PELVIS WO CONT Routine 05/16/2025 10:23 PM EDT Pain documented in this encounter Results * CT abdomen and pelvis without contrast (05/16/2025 10:23 PM EDT) us Scanning Provider External IMG CT ORDERABLES Fin al Result documented in this encounter Visit Diagnoses Diagnosis Pain Generalized pain documented in this encounter Care Teams Programming Director Relationship Specialty Start Date End Date Pcp, [place] [address] PCP - General Family Medicine 05/16/25 05/16/25 documented as of this encounter
--- OUTSIDE RECORDS SUMMARY | 2025-05-29 07:52 | XMS_ITS | Encounter Summary ---
Author Organization [facility] Address [address] [place] [address] Care Team Providers Care Oil Field Technician Name Role Phone Helen Alicea MD Primary Care Provider [phone] Helen Alicea MD Unavailable Encounter Details Date Type Department Care Team (Late st Contact Info) Description 09/12/2024 Abstract [facility] [address] [place] [id number] Helen Alicea MD [address] [place], [place] [id number] Social History Tobacco Use Types Packs/Day Years [...] [address] [place] [address] Tonia Cazares PA [address] [place] [address] 11/18/2025 9:20 AM EST Office Visit [facility] [place] [facility] [address] [place] [phone] Toyin Zuleta, LOAN OFFICER ASSISTANT-FOOTBALL PAD REPAIRER [address] [place] [address] documented as of this encounter Visit Diagnoses Not on filedocumented in this encounter Additional Health Concerns Assessment Noted Time PHQ-9 Depression Total Score: 0 06/06/20 8:00 AM EDT documented as of this encounter Care Teams Oil Field Technician Relationship Specialty Start Date End Date Helen Alicea MD [address] [facility] [address] [place] [address] PCP - General Family Medicine 02/16/23 Helen Alicea MD [address] [facility] [address] [place] [address] PCP - ACO Reach 01/24/24 documented as of this encounter
--- OUTSIDE RECORDS SUMMARY | 2025-05-29 07:52 | XMS_ITS | Clinical Summary ---
Author Organization [facility] Healthcare Address [address] [place] [address] Care Team Providers Care Conveyor Feeder Offbearer Name Role Phone Helen Medina MD Primary Care Provider [phone] Helen Medina MD Unavailable Allergies Active Allergy Reactions Criticality Noted Date Comments Other 05/18/2023 Other Reaction(s): Unknown Pollen Extract Rash Low 02/16/2023 Medications Multiple Vitamins-Minerals (Eye Vitamins) capsule Orally Active azelastine (Astelin) 0.1 % nasal spray Administer 1 spray into each nostril in the morning and 1 spray before bedtime. 3 Active cetirizine (ZyrTEC) 10 MG tablet Take 10 mg by mouth in the morning. Active alendronate (Fosamax) 70 MG tabletIndications: Age-related osteoporosis without current pathological fracture TAKE 1 TAB 30 MIN BEFORE FIRST FOOD/BEVERAGE/ MEDICINE OF THE DAY WITH PLAIN WATER ONCE A WEEK 12 tablet 3 3 Active hydrocortisone 2.5 % creamIndications:O ther seborrheic dermatitis Apply topically 2 (two) times a day as needed (Rash) Apply thin layer to affected areas bid prn for flares 30 g 3 4 Active metoprolol tartrate (Lopressor) 50 MG tabletIndications: Benign essential hypertension TAKE 1 TABLET TWICE DAILY WITH FOOD 200 tablet 3 4 Active cromolyn (Opticrom) 4 % ophthalmic solutionIndication s:Allergic conjunctivitis of both eyes Administer 1 drop into both eyes in the morning and 1 drop at noon and 1 drop in the evening and 1 drop before bedtime. 30 mL 3 4 Active fluticasone (Flonase) 50 MCG/ACT nasal spray Administer 1 spray into each nostril Daily Shake gently. Before first use, prime pump. After use, clean tip and replace cap. Active Active Problems Problem Noted Date Diagnosed Date Acute seasonal allergic rhinitis due to pollen 0 03/13/2023 Allergic conjunctivitis of both eyes 03/13/2023 Benign essential hypertension 03/13/2023 Cervical spondylosis 03/13/2023 Diverticulosis 03/13/2023 Hypercholesterolemia 03/13/2023 Assessment & Plan (06/20/2023 9:34 AM EDT): Patient had elevated HDL and LDL Given age, risk for FL is elevated. Patient is past the usual age for treatment, but given no previous events options were given. Encouraged Exercise, low fat diet and Fish Oils. Should an event occur like an FL or CVA she would need to be on cholesterol medicine Hypersomnia 03/13/2023 Macular degeneration of both eyes 03/13/2023 Obstructive sleep apnea syndrome 03/13/2023 Osteoporosis 03/13/2023 Seizure 03/13/2023 Encounters Date Type Department Care Team Description 05/22/2025 Patient Outreach [facility] [address] [place] [address] Claudia Burr LPN 05/16/2025 Clinisync Result Encounter NOMS External Department Unsolicited Provider, Generic External Data 03/19/2025 Clinisync Result Encounter NOMS External Department Unsolicited Helen Medina MD 03/18/2025 8:30 AM EDT Office Visit [facility] [address] [place] [address] Tonia Cazares, PA Benign essential hypertension (Primary Dx); Acute seasonal allergic rhinitis due to pollen; Unspecified convulsions (HCC) 03/18/2025 Travel from Last 3 Months Immunizations Immunization Administration Dates Next Due Influenza, High Dose Seasona l, Preservative Free 06/02/2024,06/04/2018,05/23/2017,08/01 Influenza, High-dose Seasona l, Quadrivalent, Preservative Free 05/21/2022,05/18/2021 Influenza, Seasonal, Quadriv alent, Adjuvanted 05/30/2023 Influenza, injectable, quadrivalent 06/29/2016 Moderna Bivalent Booster Vaccination 06/03/2022 Pfizer Purple Cap SARS-CoV-2 Vaccination 06/13/2023 Pneumococcal Conjugate PCV 13 09/08/2014 Pneumococcal Polysaccharide PPSV23 04/10/2018, RSV, recombinant, protein anaya bunit RSVpreF, adjuvant reconstitu, 120mcg/0.5mL, PF (Arexvy) 09/08/2023 SARS-COV-2 (COVID-19) vaccin e, mRNA, spike protein, LNP, bivalent, PF 06/03/2022 Tdap 06/06/2023 Zoster, Recombinant 09/09/2018,04/20/2018 Zoster, live 09/08/2012,03/30/2011 Family History * Patient is adopted Medical History Relation Name Comments Melanoma Neg Hx Relation Name Status Comments Father Mother Other 1 spouse Other 2 no children Social History Tobacco Use Types Packs/Day Years Used Date Smoking Tobacco: Never Smokeless Tobacco: Never Tobacco Cessation:Counseling Given: Yes Alcohol Use Standard Drinks/Week Comments Never 0 (1 standard drink = 0.6 oz pur e alcohol) PHQ-2 Answer Date Recorded Patient Health Questionnaire-2 Score 0 03/18/2025 Comments Unknown Sex and Gender Information Value Date Recorded Sex Assigned at Not on file Legal Sex Female 7:24 PM EDT Gender Identity Not on file Sexual Orientation Not on file Last Filed Vital Signs Vital Sign Reading Time Taken Comments Blood Pressure 128/70 03/18/2025 8:36 AM EDT Pulse 60 03/18/2025 8:23 AM EDT Temperature 36.5 C (97.7 F) 01/06/2025 9:37 AM EDT Respiratory Rate 16 01/06/2025 9:37 AM EDT Oxygen Saturation 97% 03/18/2025 8:23 AM EDT Inhaled Oxygen Concentration - - Weight 68 kg (150 lb) 03/18/2025 8:23 AM EDT Height 166.4 cm (5' 5.5 ) 03/18/2025 8:23 AM EDT Body Mass Index 24.58 03/18/2025 8:23 AM EDT Plan of Treatment Upcoming Encounters Date Type Department Care Team (Late st Contact Info) Description 09/08/2025 8:00 AM EST [facility] [address] [place] [address] Tonia Cazares PA [address] [place] [address] 11/18/2025 9:20 AM EST Office Visit [facility] [address] [place] [phone] Ebonylora Toyin Jones, INSULATION BOARD COATER OPERATOR-ASSOCIATE PROFESSOR OF HISTORY [address] [place] [address] Health Maintenance Due Date Last Done Comments Influenza Vaccine (#1) 2025 , 05/30/2023, 05/21/2022, Additional history exists Medicare Annual Wellness (AWV) 09/12/2025 1 11/13/2023, 06/06/2023, 05/26/2022 Pneumococcal Vaccine: 65+ Years Completed 04/10/2018, 04/10/2018, 09/08/2014 Procedures Procedure Name Priority Date/Time Associated Diagnosis Comments URINE CULTURE - [facility] Routine 05/16/2025 5:55 PM EDT MM TOMOSYNTHESIS SCREENING BI 03/19/2025 3:38 PM EDT from Last 3 Months Results * (ABNORMAL) URINE CULTURE - [facility] (05/16/2025 5:55 PM EDT) [facility] [address] URINE CULTURE - [facility] Urine Culture - FR Testing performed at [facility] [address] [place] [address] [facility]INE [facility]ULTURE - [facility] O:KLEBVA Isolated [facility] - [facility] Urine Culture - FR [place] [facility] URINE CULTURE - FR >100,000 CFU/ml [facility] URINE CULTURE - [facility] Organism: 1.1 Antibiotic Interpretation ROYAL Status [facility] URINE CULTURE - FR Amikacin S F(S) [facility] URINE CULTURE - [facility] Amoxicillin/Clavul anate S F(S) [facility]INE CULTURE - [facility] Aztreonam S F(S) [facility]INE CULTURE - [facility] Ceftazidime S F(S) [facility]INE CULTURE - [facility] Ciprofloxacin S F(S) [facility] URINE CULTURE - [facility] Ertapenem S F(S) [facility]INE C[facility]URE [facility] Gentamicin S F(S) [facility]INE C[facility] Levofloxacin S F(S) [facility] UR[facility] Meropenem S F(S) [facility]INE CULT[facility] Nitrofurantoin S F(S) [facility] CULTURE - [facility] Tetracycline S F(S) [facility] Tigecycline S F(S) [facility] URINE CULTURE - [facility] Tobramycin S F(S) [facility] URINE CULTURE - [facility] Ampicillin/Sulbact am S F(S) [facility] URINE CULTURE - [facility] Cefazolin S F(S) [facility] URINE CULTURE - [facility] Cefepime S F(S) [facility] URINE CULTURE - [facility] Ceftriaxone S F(S) [facility] URINE CULTURE [facility] Cefuroxime S F(S) [facility] CULTURE - [facility] Piperacillin/Tazob actam S F(S) [facility]INE CULTURE - [facility] Trimethoprim/Sulfa S F(S) [facility] 05/16/2025 5:55 PM EDT 05/16/2025 5:59 PM EDT Narrative [facility] - 05/19/2025 4:20 PM EDT us Generic External Data Provider LAB BLOOD ORDERAB LES Final [facility] MM TOMOSYNTHESIS SCREENING BI (03/19/2025 3:38 PM EDT) Anatomical Region Laterality Modality Other 03/19/2025 3:38 PM EDT Narrative 03/19/2025 3:39 PM EDT [address] [address] Mammography Report Signed Patient: MEI STROUD MR#: [id number] : 1940 Acct:[id number] Age/Sex: 85 / F ADM Date: 03/19/25 Loc: MAMMO Attending Dr: HELEN MEDINA Ordering Physician: HELEN MEDINA Results: Date of Service: 03/19/25 Follow Up: Procedure(s): MM tomosynthesis screening BI Accession Number(s): [id number] cc: HELEN MEDINA Patient Name: MEI STROUD MR#: [id number] : 1940 Exam Date: 03/19/2025 Ordering Doctor: [...] radiation therapy Family Cancers None LOCATION: [facility] BREAST COMPOSITION: There are scattered areas of [...] Signed By: 03/19/25 1539 DD/ 1538 TD/TT: Grocery Stocker: Procedure Note Radiology, Radiologist, MD - 03/19/2025 [place] [address] Mammography Report Signed Patient: MEI STROUD LMR#: [id number] : 1940cct:[id number] Age/Sex: 85 / FADM Date: 03/19/25 Loc: MAMMO Attending Dr: HELEN MEDINA Ordering Physician: Albert MEDINAults: Date of Service: 03/19/25Follow Up: Procedure(s): MM tomosynthesis screening BI Accession Number(s): [id number] cc: ADAM,HELEN Patient Name: MEI STROUD MR#: [id number] : 1940 Exam Date: 03/19/2025 Ordering Doctor: DR HELEN MEDINA M.D. RADIOLOGY REPORT PROCEDURE: MM TOMOSYNTHESIS SCREENING BI COMPARISON: MM TOMOSYNTHESIS SCREENING BI, 03/18/2024. MMTOMOSYNTHESIS SCREENING BI, 03/17/2023. MG MAMM SCREEN 3D NIC CAD, 03/16/2022. MG MAMMBIL DIAG W CAD DIG, 09/02/2013. INDICATIONS: Screening Calculator Name NCI Breast Cancer Risk Assessment Tool 5 Year Breast Cancer Risk Not Applicable. Lifetime Breast Cancer Risk Not Applicable. Personal Breast Cancer Yes, lt intraductal comeocarcinoma withnecrosis Personal Ovarian Cancer No Treatments lumpectomy and radiation therapy Family Cancers None LOCATION: [facility] BREAST COMPOSITION: There are scattered areas of fibroglandulardensity. FINDINGS: DIAGNOSTIC CATEGORY 1--NEGATIVE. RIGHT BREAST: No [...] 15:38 Dictated By: Royce Hughes M.D. Signed By:03/19/25 1539 DD/ 1538 TD/TT: Grocery Stocker: Helne Medina MD [facility] Final Result from Last 3 Months Insurance [employer] MEDICARE Care Teams Conveyor Feeder Offbearer Relationship Specialty Start Date End Date Helen Medina MD [address] [facility] 110 [place] [address] PCP - General Family Medicine 02/16/23 Helen Medina MD [address] [facility] 110 [place] [address] PCP - ACO Reach 01/24/24
--- OUTSIDE RECORDS SUMMARY | 2025-05-29 07:52 | XMS_ITS | Encounter Summary ---
Author Organization [facility] Address [address] [facility] [place] [address] Care Team Providers Care Screen Cutter And Trimmer Name Role Phone Helen Alicea MD Primary Care Provider [phone] Helen Alicea MD Unavailable Encounter Details Date Type Department Care Team (Late st Contact Info) Description 11/13/2024 Abstract [facility] [address] [facility] 110 [place] [address] Helen Alicea MD [address] [facility] 110 [place] [address] Social History Tobacco Use Types Packs/Day Years [...] [facility] [place] [facility] [address] [facility] 110 [place] [address] Tonia Cazares PA [address] [facility] 110 [place] [address] 11/18/2025 9:20 AM EST Office Visit [facility] [address] [place] [address] Toyin Zuleta, DIGITAL CONTENT PRODUCER-AIR DEFENSE ARTILLERY SENIOR SERGEANT [address] [place] [address] documented as of this encounter Visit Diagnoses Not on filedocumented in this encounter Additional Health Concerns Assessment Noted Time PHQ-9 Depression Total Score: 0 06/06/20 23 8:00 AM EDT documented as of this encounter Care Teams Screen Cutter And Trimmer Relationship Specialty Start Date End Date Helen Alicea MD [address] [facility] 110 [place] [address] PCP - General Family Medicine 02/16/23 Helen Alicea MD [address] [facility] 110 [place] [address] PCP - ACO Reach 01/24/24 documented as of this encounter
--- OUTSIDE RECORDS SUMMARY | 2025-05-29 07:53 | XMS_ITS | Encounter Summary ---
Author Organization [facility] Address [address] [place] [address] Care Team Providers Care Mule Rider Name Role Phone Helen Alicea MD Primary Care Provider [phone] Helen Alicea MD Unavailable Encounter Details Date Type Department Care Team (Late st Contact Info) Description 05/15/2024 Orders Only [facility] [address] [place] [phone] Lavonne Vizcaino LPN [address] [place] [address] Medicare annual wellness visit, subsequent; Age-related osteoporosis [...] Paco Daleynce [address] [place] [address] Tonia Cazares PA [address] [place] [address] 11/18/2025 9:20 AM EST Office Visit [facility] [address] [place] [address] Toyin Zuleta, FLIGHT PARAMEDIC-ENDOSCOPY TECHNICAN [address] [place] [address] documented as of this encounter Visit Diagnoses Diagnosis Medicare annual wellness visit, subsequent Age-related osteoporosis without current pathological fracture Estrogen deficiency Other ovarian failure documented in this encounter Additional Health Concerns Assessment Noted Time PHQ-9 Depression Total Score: 0 06/06/20 23 8:00 AM EDT documented as of this encounter Care Teams Mule Rider Relationship Specialty Start Date End Date Helen Alicea MD 112 [facility] 110 [place] [address] PCP - General Family Medicine 02/16/23 eHlen Alicea MD [address] [facility] 110 [place] [address] PCP - ACO Reach 01/24/24 documented as of this encounter
--- OUTSIDE RECORDS SUMMARY | 2025-05-29 07:53 | XMS_ITS | Encounter Summary ---
Author Organization [facility] Address [address] [place] [address] Care Team Providers Care Front Maker Lockstitch Name Role Phone Helen Alicea MD Primary Care Provider [phone] Helen Alicea MD Unavailable Encounter Details Date Type Department Care Team (Late st Contact Info) Description 05/22/2025 Patient Outreach [facility] [address] [place] [place] [address] Claudia Burr LPN Social History Tobacco Use Types Packs/Day Years [...] on file documented as of this encounter Progress Notes * Claudia Burr LPN - 05/22/2025 12:28 PM EDT Images from the original note were not included. <May 22, 2025, 12:33 - Claudia Burr LPN> Mei Guardado is an 85 y.o. White or female transferred from [place] for trauma consult after being found unresponsive [...] Lactic acidosis, leukocytosis - lactate 6.2 at [place] and WBC 20.2 - possible sepsis given [...] time of initiation Rhabdomyolysis - 354 at [place] - repeat CK 1975, myoglobin at 967 - monitor UOP, IVF hydration Hypertension - Hx HTN on Metoprolol 25mg bid - 05/19 changed to Coreg 12.5mg bid for improved BP control--> not effective, will discharge on home Metoprolol - Hydralazine/Labetalol prn to keep SBP<140 Flowsheet Row Patient Outreach from 05/22/[address] [facility] with Claudia Burr LPN Hospital Information ED, Hospital or [facility] Facility Discharge? Hospital Patient has been contacted within two business days of discharge No [DUE TO GOING TO SNF] Have two attempts been made to contact the patient within two business days of being discharged? No Diagnosis INTRACEREBRAL HEMORRAGE Discharge Date 05/20/25 Discharged To: [facility] Facility (specify SNF in comments) Discharge Hospital [facility] Facilities [facility] Engagement Admission Date 05/16/25 Medications Medication Comments loratadine (CLARITIN) 10 mg tablet Take 1 tablet (10 mg total) by mouth in the morning levETIRAcetam (KEPPRA) 500 mg tablet Take 1 tablet (500 mg total) by mouth every 12 (twelve)hours for 3 days. 05/20/2025 05/23/2025 Appointments Self Management Patient Teaching Wrap Up documented in this encounter Plan of Treatment Upcoming Encounters Date Type Department Care Team (Late st Contact Info) Description 09/08/2025 8:00 AM EST Office Visit [facility] [address] [place] [address] Tonia Cazares, PA [address] [place] [address] 11/18/2025 9:20 AM EST Office Visit [facility] [facility] [address] [place] [address] Toyin Zuleta APRN-TEENAGE BABYSITTER [address] [place] [address] documented as of this encounter Visit Diagnoses Not on filedocumented in this encounter Additional Health Concerns Assessment Noted Time PHQ-9 Depression Total Score: 0 06/06/20 8:00 AM EDT documented as of this encounter Care Teams Front Maker Lockstitch Relationship Specialty Start Date End Date Helen Alicea MD [address] [facility] 110 [place] [address] PCP - General Family Medicine 02/16/23 Helen Alicea MD [address] [place] [address] PCP - ACO Reach 01/24/24 documented as of this encounter
--- OUTSIDE RECORDS SUMMARY | 2025-05-29 07:53 | XMS_ITS | Encounter Summary ---
Author Organization [facility] Address [address] [place] [address] Care Team Providers Care Digital Campaign Specialist Name Role Phone Helen Alicea MD Primary Care Provider [phone] Helen Alicea MD Unavailable Helen Alicea MD Unavailable Encounter Details Date Type Department Care Team (Late st Contact Info) Description 07/10/2023 Abstract [facility] Agustin [address] [facility] 110 [place] [phone] Helen Alicea MD [address] [facility] 110 [place] [address] Social History Tobacco Use Types Packs/Day Years [...] Office Visit [facility] [place] [address] [facility] 110 [place] [phone] Tonia Cazares PA [address] [facility] 110 [place] [address] 11/18/2025 9:20 AM EST Office Visit [facility] [facility] [address] [place] [address] Toyin Zuleta, FORESTRY FARM LABORER-GAMB CUTTER [address] [place] [address] documented as of this encounter Visit Diagnoses Not on filedocumented in this encounter Additional Health Concerns Assessment Noted Time PHQ-9 Depression Total Score: 0 06/06/20 8:00 AM EDT documented as of this encounter Care Teams Digital Campaign Specialist Relationship Specialty Start Date End Date Helen Alicea MD [address] [facility] 110 [place] [address] PCP - General Family Medicine 02/16/23 Helen Alicea MD [address] [facility] 110 [place] [address] PCP - ACO Reach 02/16/23 11/23/23 Helen Alicea MD [address] [facility] 110 [place] [address] PCP - ACO Reach 01/24/24 documented as of this encounter
--- OUTSIDE RECORDS SUMMARY | 2025-05-29 07:53 | XMS_ITS | Encounter Summary ---
Author Organization [facility] Address [address] [place] [place] [address] Care Team Providers Care Tipple Engineer Name Role Phone Helen Alicea MD Primary Care Provider [phone] Helen Alicea MD Unavailable Helen Alicea MD Unavailable Encounter Details Date Type Department Care Team (Late st Contact Info) Description 09/11/2023 Orders Only [facility] [address] [facility] 110 [place] [address] A, Unknown Practice [address] [place], [place] [address] Social History Tobacco Use Types Packs/Day Years [...] AM EST Office Visit [facility] [address] [place] [address] Tonia Cazares PA [address] [place], [place] [address] 11/18/2025 9:20 AM EST Office Visit [facility] [address] [place] [address] Toyin Zuleta, INSTRUCTIONAL SERVICES LIBRARIAN-TELEPHONE ADVICE NURSE [address] [place] [address] documented as of this encounter Procedures Procedure [...] documented as of this encounter Care Teams Tipple Engineer Relationship Specialty Start Date End Date Helen Alicea MD [address] [address] PCP - General Family Medicine 02/16/23 Helen Alicea MD [address] [facility] 110 [place] [address] PCP - ACO Reach 02/16/23 11/23/23 Helen Alicea MD [address] [facility] 110 [place] [address] PCP - ACO Reach 01/24/24 documented as of this encounter
--- OUTSIDE RECORDS SUMMARY | 2025-05-29 07:53 | XMS_ITS | Encounter Summary ---
Author Organization [facility] Address [address] [facility] [place] [address] Care Team Providers Care Quality Coordinator Name Role Phone Helen Alicea MD Primary Care Provider [phone] Helen Alicea MD Unavailable Helen Alicea MD Unavailable Encounter Details Date Type Department Care Team (Late st Contact Info) Description 06/08/2023 Abstract [facility] [address] [facility] 110 [place] [phone] Helen Alicea MD [address] [facility] 110 [place] [address] Social History Tobacco Use Types Packs/Day Years [...] 8:00 AM EST [facility] [address] [facility] 110 [place] [address] Tonia Cazares PA [address] [facility] 110 [place] [address] 11/18/2025 9:20 AM EST Office Visit [facility] [address] [place] [address] Toyin Zuleta, MULTIMEDIA PRODUCTION ASSISTANT-CIVIL RIGHTS ATTORNEY [address] [place] [address] documented as of this encounter Visit Diagnoses Not on filedocumented in this encounter Additional Health Concerns Assessment Noted Time PHQ-9 Depression Total Score: 0 06/06/20 8:00 AM EDT documented as of this encounter Care Teams Quality Coordinator Relationship Specialty Start Date End Date Helen Alicea MD [address] [facility] 110 [place] [address] PCP - General Family Medicine 02/16/23 Helen Alicea MD [address] [facility] 110 [place] [address] PCP - ACO Reach 02/16/23 11/23/23 Helen Alicea MD [address] [facility] 110 [place] [address] PCP - ACO Reach 01/24/24 documented as of this encounter
--- OUTSIDE RECORDS SUMMARY | 2025-05-29 07:53 | XMS_ITS ---
Author Organization [facility] Address [address] [place] [address] Care Team Providers Care Red Mud Thickener Operator Name Role Phone Helen Alicea MD Primary Care Provider [phone] Helen Alicea MD Unavailable Group Home Facility Transitional Care Management Status:Enrolled (Active) Start date:05/20/2025 Enrollment date:05/22/2025 Enrollment reason:Identified using hospital discharge data Overview Patient discharged from [facility] on 05/20. Patient admitted to [facility]. Please contact SNF facility for ADEEL (inpt to SNF) within 48 hours. Case Team Name Relationship Phone Claudia Burr LPN(Responsible Staff) Licensed Pr actical Nurse [phone] Continued Care and Services Coordination
--- OUTSIDE RECORDS SUMMARY | 2025-05-29 07:53 | XMS_ITS | Encounter Summary ---
Author Organization [facility] Address [address] [facility] [place] [address] Care Team Providers Care Ammonia Distiller Name Role Phone Helen Alicea MD Primary Care Provider [phone] Helen Alicea MD Unavailable Helen Alicea MD Unavailable Encounter Details Date Type Department Care Team (Late st Contact Info) Description 05/15/2023 Abstract [facility] [place] Flores [address] [facility] 110 [place] [address] Helen Alicea MD [address] [facility] 110 [place] [address] Social History Tobacco Use Types Packs/Day Years [...] AM EST [facility] [address] [facility] 110 [place] [address] Tonia Cazares PA [address] [facility] 110 [place] [address] 11/18/2025 9:20 AM EST Office Visit [facility] [address] [place] [address] Toyin Zuleta, LOAD OUT SUPERVISOR-LOAD OUT SUPERVISOR [address] [facility] [place] [address] documented as of this encounter Visit Diagnoses Not on filedocumented in this encounter Care Teams Ammonia Distiller Relationship Specialty Start Date End Date Helen Alicea MD [address] [facility] [address] [place] [address] PCP - General Family Medicine 02/16/23 Helen Alicea MD [address] [facility] 110 [place] [address] PCP - ACO Reach 02/16/23 11/23/23 Helen Alicea MD [address] [facility] 110 [place] [address] PCP - ACO Reach 01/24/24 documented as of this encounter
--- OUTSIDE RECORDS SUMMARY | 2025-05-29 07:53 | XMS_ITS | Encounter Summary ---
Author Organization [facility] Address [address] [facility] [place] [address] Care Team Providers Care Lining Repairer Name Role Phone Helen Alicea MD Primary Care Provider [phone] Helen Alicea MD Unavailable Helen Alicea MD Unavailable Encounter Details Date Type Department Care Team (Late st Contact Info) Description 03/20/2023 Abstract [facility] [place] Flores [address] [facility] 110 [place] [address] Helen Alicea MD [address] [facility] 110 [place] [address] Social History Tobacco Use Types Packs/Day Years [...] AM EST Office Visit [facility] [place] [facility] [address] [facility] 110 [place] [address] Tonia Cazares PA [address] [facility] 110 [place] [address] 11/18/2025 9:20 AM EST Office Visit [facility] [address] 350 [place] [address] Toyin Zuleta, TERMITE INSPECTOR-ANESTHESIOLOGY TECHNOLOGIST [address] 350 [place] [address] documented as of this encounter Visit Diagnoses Not on filedocumented in this encounter Care Teams Lining Repairer Relationship Specialty Start Date End Date Helen Alicea MD [address] [facility] [address] [place] [address] PCP - General Family Medicine 02/16/23 Helen Alicea MD [address] [facility] 110 [place] [address] PCP - ACO Reach 02/16/23 11/23/23 Helen Alicea MD [address] [facility] 110 [place] [address] PCP - ACO Reach 01/24/24 documented as of this encounter
--- OUTSIDE RECORDS SUMMARY | 2025-05-29 07:53 | XMS_ITS | Clinical Summary ---
Author Organization [facility] Address [address] [place], [place] [address] Care Team Providers Care Certified Corporate Travel Executive Name Role Phone Helen Alicea MD Primary Care Provider [phone] Allergies No known active allergies Social History Tobacco Use Types Packs/Day Years Used Date Smoking Tobacco: Never Assessed Comments Unknown Sex and Gender Information Value Date Recorded Sex Assigned at Not on file Legal Sex Female 1:10 PM EDT Gender Identity Not on file Sexual Orientation Not on file Plan of Treatment Not on file Insurance MEDICARE [facility] Address: [address] [address] [place] [address] Care Teams Certified Corporate Travel Executive Relationship Specialty Start Date End Date Helen Alicea MD [address] [place] [id number] PCP - General Family Medicine 05/17/16
--- OUTSIDE RECORDS SUMMARY | 2025-05-29 07:53 | XMS_ITS | Encounter Summary ---
Author Organization [facility] Address [address] [place] [address] Care Team Providers Care Focused Factory Manager Name Role Phone Helen Alicea MD Primary Care Provider [phone] Helen Alicea MD Unavailable Helen Alicea MD Unavailable Encounter Details Date Type Department Care Team (Late st Contact Info) Description 09/08/2023 Orders Only [facility] [address] [email or web address] 110 [place] [address] A, Unknown Practice [address] [place], [place] [address] Social History Tobacco Use Types Packs/Day Years [...] AM EST Office Visit [facility] [address] [facility] [address] [place] [address] Tonia Cazares PA [address] [facility] 110 [place], [place] [phone] 11/18/2025 9:20 AM EST Office Visit [facility] [address] [place] [address] Toyin Zuleta, WEIGHT TESTER-CLOTH SECONDS SORTER [address] [place] [address] documented as of this encounter Procedures Procedure [...] documented as of this encounter Care Teams Focused Factory Manager Relationship Specialty Start Date End Date Helen Alicea MD [address] [address] PCP - General Family Medicine 02/16/23 Helen Alicea MD [address] [address] PCP - ACO Reach 02/16/23 11/23/23 Helen Alicea MD [address] [address] PCP - ACO Reach 01/24/24 documented as of this encounter
--- OUTSIDE RECORDS SUMMARY | 2025-05-29 07:53 | XMS_ITS | Encounter Summary ---
Author Organization Outside[facility]in tem Address [id number] [address] [place] [address] Care Team Providers Care Clinical Support Associate Name Role Phone Helen Alicea MD Primary Care Provider [phone] Reason for Referral * Diagnostic Imaging (Routine) - Closed Specialty Diagnoses / Procedures Referred By Contac t Referred To Contact Radiology Diagnoses Pain Procedures CT brain without contrast [facility] [address] [place] [address] Phone: tel: fax: Referral ID Status Reason Start Date Expiration Date Visits Re quested Visits Authorized [id number] Closed 05/16/2025 05/16/2026 1 1 * Diagnostic Imaging (Routine) - Closed Specialty Diagnoses / Procedures Referred By Contac t Referred To Contact Radiology Diagnoses Pain Procedures CT cervical spine without contrast [facility] [address] [place] [address] Phone: tel: fax: Referral ID Status Reason Start Date Expiration Date Visits Re quested Visits Authorized [id number] Closed 05/16/2025 05/16/2026 1 1 * Diagnostic Imaging (Routine) - Closed Specialty Diagnoses / Procedures Referred By Contac t Referred To Contact Radiology Diagnoses Pain Procedures CT angiogram carotid [facility] [address] [place] [address] Phone: tel: fax: Referral ID Status Reason Start Date Expiration Date Visits Re quested Visits Authorized [id number] Closed 05/16/2025 05/16/2026 1 1 * Diagnostic Imaging (Routine) - Closed Specialty Diagnoses / Procedures Referred By Contac t Referred To Contact Radiology Diagnoses Pain Procedures CT angiogram head [facility] [address] [place] [address] Phone: tel: fax: Referral ID Status Reason Start Date Expiration Date Visits Re quested Visits Authorized [id number] Closed 05/16/2025 05/16/2026 1 1 * Diagnostic Imaging (Routine) - Closed Specialty Diagnoses / Procedures Referred By Contac t Referred To Contact Radiology Diagnoses Pain Procedures CT abdomen and pelvis without contrast [facility] [address] [place] [address] Phone: tel: fax: Referral ID Status Reason Start Date Expiration Date Visits Re quested Visits Authorized [id number] Closed 05/16/2025 05/16/2026 1 1 * Diagnostic Imaging (Routine) - Closed Specialty Diagnoses / Procedures Referred By Contac t Referred To Contact Radiology Diagnoses Pain Procedures CT chest without contrast [facility] [address] [place] [address] Phone: tel: fax: Referral ID Status Reason Start Date Expiration Date Visits Re quested Visits Authorized [id number] Closed 05/16/2025 05/16/2026 1 1 Encounter Details Date Type Department Care Team (Late st Contact Info) Description 05/16/2025 Orders Only [facility] [place] [address] Transcribe, Orders Support User Pain (Primary Dx) Social History Tobacco Use Types Packs/Day Years Used Date Smoking Tobacco: Never Assessed [facility] Utilities Answer Date Recorded In the past 12 months has th e electric, gas, oil, or water company threatened [...] to get more. Never True 05/19/2025 Comments Unknown Sex and Gender Information Value Date Recorded Sex Assigned at Not on file Legal Sex Female 12:07 PM EDT Gender Identity Not on file Sexual Orientation Not on file documented as of this encounter Functional Status * Audit-C Score Answer Date of Assessment Author -1 05/19/2025 2:53 PM EDT Angela Parada RN * Question Answer Date of Assessment Author Q1: How often do you have a drink containing alcohol? Patient declined 05/19/2025 2:53 PM EDT Angela Parada , VERONICA Q2: How many drinks containing alcohol do [...] Status X 05/19/2025 10:29 AM EDT Cass Alexis, PT * Question Answer Entry Date Author Overall Cognitive Status X 05/17/2025 9:55 AM EDT Julienne Jolley CCC-CHARGE MASTER COORDINATOR documented in this encounter Plan of Treatment Not on file documented as of this encounter Goals Goal Patient Goal Type Associated Problems Recent Progress Patient-Stated? Author discharge General Yes Mable Fisher, VERONICA Note: Evaluation of progress towards goal: Safe discharge from hospital documented as of this encounter Results * CT abdomen and pelvis without contrast (05/16/2025 10:23 PM EDT) us Scanning Provider External IMG CT ORDERABLES Fin al Result * CT chest without contrast (05/16/2025 6:45 PM EDT) us Scanning Provider External IMG CT ORDERABLES Fin al Result * CT angiogram carotid (05/16/2025 5:45 PM EDT) us Scanning Provider External IMG CT ORDERABLES Fin al Result * CT angiogram head (05/16/2025 5:40 PM EDT) us Scanning Provider External IMG CT ORDERABLES Fin al Result * CT cervical spine without contrast (05/16/2025 4:50 PM EDT) us Scanning Provider External IMG CT ORDERABLES Fin al Result * CT brain without contrast (05/16/2025 4:45 PM EDT) us Scanning Provider External IMG CT ORDERABLES Fin al Result * X-ray chest 1 view (05/16/2025 4:25 PM EDT) us Scanning Provider External IMG DIAGNOSTIC IMAGIN G ORDERABLES Final Result documented in this encounter Visit Diagnoses Diagnosis Pain- Primary Generalized pain documented in this encounter Care Teams Clinical Support Associate Relationship Specialty Start Date End Date Helen Alicea MD [facility] [place] [address] PCP - General Family Medicine 05/17/25 documented as of this encounter
--- OUTSIDE RECORDS SUMMARY | 2025-05-29 07:53 | XMS_ITS | Encounter Summary ---
Author Organization [facility] Address [address] [place] [address] Care Team Providers Care Lacquer Shader Name Role Phone Helen Alicea MD Primary Care Provider [phone] Helen Alicea MD Unavailable Encounter Details Date Type Department Care Team (Late Contact Info) Description 12/06/2023 Orders Only [facility] [address] [facility] 110 [place] [address] Unallocated, Noms Provider, [address] [place] [address] Social History Tobacco Use Types Packs/Day Years [...] [facility] Paco Nunez [facility] [address] [facility] 110 [place] [address] Tonia Cazares PA [address] [facility] 110 [place] [address] 11/18/2025 9:20 AM EST Office Visit [facility] [address] [place] [address] Toyin uZleta, KIOSK SALES REPRESENTATIVE-HR BUSINESS PARTNER CONSULTANT [address] [place] [address] documented as of this encounter Procedures Procedure [...] documented as of this encounter Care Teams Lacquer Shader Relationship Specialty Start Date End Date Helen Alicea MD [address] [facility] 110 [place] [address] PCP - General Family Medicine 02/16/23 Helen Alicea MD [address] [facility] 110 [place] [address] PCP - ACO Reach 01/24/24 documented as of this encounter
--- OUTSIDE RECORDS SUMMARY | 2025-05-29 07:53 | XMS_ITS | Encounter Summary ---
Author Organization [facility] Address [address] [facility] [place] [address] Care Team Providers Care Healthcare Management Name Role Phone Helen Medina MD Primary Care Provider [phone] Helen Medina MD Unavailable Helen Medina MD Unavailable Encounter Details Date Type Department Care Team (Late st Contact Info) Description 09/08/2023 Clinisync Result Encounter NOMS External Department Unsolicited Helen Medina MD [address] [facility] 110 [place], [place] [id number] Social History Tobacco Use Types Packs/Day Years [...] Visit NOMS Paco Florese [address] [facility] 110 [place] [address] Tonia Cazares PA [address] [facility] 110 [place] [address] 11/18/2025 9:20 AM EST Office Visit [facility] [address] [place] [address] Toyin Zuleta Robert, TERMINAL GAUGER SUPERVISOR-RAW MATERIAL PLANNER [address] [place] [address] documented as of this encounter Procedures Procedure Name Priority Date/Time Associated Diagnosis Comments XR DEXA AXIAL SKELETON 09/08/2023 8:49 AM EST documented in this encounter Results * XR DEXA AXIAL SKELETON (09/08/2023 8:49 AM EST) Anatomical Region Laterality Modality Other 09/08/2023 8:49 AM EST Narrative 09/08/2023 8:52 AM EST [address] [address] XRay Report Signed Patient: SON STROUD MR#: [id number] : 1940 Acct:[id number] Age/Sex: 83 / F ADM Date: 09/08/23 Loc: SCOUT Attending Dr: HELEN MEDINA Ordering Physician: HELEN MEDINA Date of Service: 09/08/23 Procedure(s): XR DEXA axial skeleton Accession Number(s): [id number] cc: HELEN MEDINA [address] [address] Patient Name: SON STROUD MRN: [id number] date: 1940 Sex: F Assigned Patient Location: [facility] Current Patient Location: [facility] Accession/Order Number: [id number] Exam Date: 09/08/2023 08:00 Report Date: 09/08/2023 [...] Signed By: 09/08/23 0852 DD/ 0849 TD/TT: Wood Casket Maker: Procedure Note Radiology, Radiologist, MD - 09/08/2023 [place] [address] XRay Report Signed Patient: SON STROUD LMR#: [id number] : 1940cct:[id number] Age/Sex: 83 / FADM Date: 09/08/23 Loc: RAD Attending Dr: HELEN MEDINA Ordering Physician: HELEN MEDINA Date of Service: 09/08/23 Procedure(s): XR DEXA axial skeleton Accession Number(s): [id number] cc: HELEN MEDINA [place] [id number] Patient Name: SON STROUD MRN: [facility]:[id number] date: 1940 Sex: F Assigned Patient Location: [facility] Current Patient Location: [facility] Accession/Order Number: [id number] Exam Date: 09/08/2023 08:00 Report Date: 09/08/2023 [...] Moises Bah M.D. Signed By:09/08/2352 DD/ TD/TT: Wood Casket Maker: Helen Medina MD [facility] Final Result documented in this encounter Visit Diagnoses Not on filedocumented in this encounter Additional Health Concerns Assessment Noted Time PHQ-9 Depression Total Score: 0 06/06/20 8:00 AM EDT documented as of this encounter Care Teams Healthcare Management Relationship Specialty Start Date End Date Helen Medina MD [address] [facility] 110 [place] [address] PCP - General Family Medicine 02/16/23 Helen Medina MD [address] [facility] 110 [place] [address] PCP - ACO Reach 02/16/23 11/23/23 Helen Medina MD [address] [facility] 110 [place] [address] PCP - ACO Reach 01/24/24 documented as of this encounter
--- OUTSIDE RECORDS SUMMARY | 2025-05-29 07:53 | XMS_ITS | Encounter Summary ---
Author Organization [facility] Address [address] [place] [address] Care Team Providers Care Blue Leather Sorter Name Role Phone Helen Alicea MD Primary Care Provider [phone] Helen Alicea MD Unavailable Encounter Details Date Type Department Care Team (Late st Contact Info) Description 05/16/2025 Clinisync Result Encounter NOMS External Department Unsolicited Provider, Generic External Data Social History Tobacco Use Types Packs/Day Years [...] AM EST Office Visit [facility] [place] [facility] [address] [facility] 110 [place] [address] Tonia Cazares PA [address] [facility] 110 [place] [address] 11/18/2025 9:20 AM EST Office Visit [facility] [address] [facility] [address] [facility] 350 [place] [address] Toyin Zuleta, SENIOR NET SOFTWARE DEVELOPER-SAMPLE COORDINATOR [address] [facility] 350 [place] [address] documented as of this encounter Procedures Procedure Name Priority Date/Time Associated Diagnosis Comments URINE CULTURE - [facility] Routine 05/16/2025 5:55 PM EDT documented in this encounter Results * (ABNORMAL) URINE CULTURE - [facility] (05/16/2025 5:55 PM EDT) [facility] URINE CULTURE - [facility] Urine Culture [facility] Testing performed at [facility] URINE CULTURE - [facility] [address] [place] [address] [facility] URINE CULTURE - [facility] O:KLEBVA Isolated [facility] URINE CULTURE - [facility] Urine Culture - FR Climax Count [facility] URINE CULTURE - FR >100,000 CFU/ml [facility] URINE CULTURE - [facility] Organism: 1.1 Antibiotic Interpretation ROYAL Status [facility] URINE CULTURE - FR Amikacin S F(S) [facility] URINE CULTURE - [facility] Amoxicillin/Clavul anate S F(S) [facility] URINE CULTURE - [facility] Aztreonam S F(S) [facility] URINE CULTURE - [facility] Ceftazidime S F(S) TB URINE CULTURE - [facility] Ciprofloxacin S F(S) TB URINE CULTURE - [facility] Ertapenem S F(S) TB URINE CULTURE - [facility] Gentamicin S F(S) TB URINE CULTURE - [facility] Levofloxacin S F(S) TB URINE CULTURE - [facility] Meropenem S F(S) TB URINE CULTURE - [facility] Nitrofurantoin S F(S) TB URINE CULTURE - [facility] Tetracycline S F(S) TB URINE CULTURE - [facility] Tigecycline S F(S) TB URINE CULTURE - [facility] Tobramycin S F(S) TB URINE CULTURE - [facility] Ampicillin/Sulbact am S F(S) TB URINE CULTURE - [facility] Cefazolin S F(S) TB URINE CULTURE - [facility] Cefepime S F(S) TB URINE CULTURE - [facility] Ceftriaxone S F(S) TB URINE CULTURE - [facility] Cefuroxime S F(S) TB URINE CULTURE - [facility] Piperacillin/Tazob actam S F(S) TB URINE CULTURE - [facility] Trimethoprim/Sulfa S F(S) TB 05/16/2025 5:55 PM EDT 05/16/2025 5:59 PM EDT Narrative [facility] - 05/19/2025 4:20 PM EDT us Generic External Data Provider LAB BLOOD ORDERAB LES Final Result SUHA [facility] documented in this encounter Visit Diagnoses Not on filedocumented in this encounter Additional Health Concerns Assessment Noted Time PHQ-9 Depression Total Score: 0 06/06/20 8:00 AM EDT documented as of this encounter Care Teams Blue Leather Sorter Relationship Specialty Start Date End Date Helen Alicea MD [address] [facility] 110 [place] [address] PCP - General Family Medicine 02/16/23 Helen Alicea MD [address] [facility] 110 [place] [address] PCP - ACO Reach 01/24/24 documented as of this encounter
--- OUTSIDE RECORDS SUMMARY | 2025-05-29 07:53 | XMS_ITS | Encounter Summary ---
Author Organization [facility] Address [address] [facility] [place] [address] Care Team Providers Care Nailhead Operator Name Role Phone Helen Alicea MD Primary Care Provider [phone] Helen Alicea MD Unavailable Encounter Details Date Type Department Care Team (Late Contact Info) Description 05/13/2024 Abstract [facility] [place] Nunez [facility] [address] [facility] 110 [place] [address] Helen Alicea MD [address] [facility] 110 [place] [address] Social History Tobacco Use Types Packs/Day Years [...] NOMS [place] Nunez [facility] [address] [facility] 110 [place] [phone] Tonia Cazares PA [address] [facility] 110 [place] [address] 11/18/2025 9:20 AM EST Office Visit [facility] [address] [place] [address] Toyin Zuleta, SECONDARY HISTORY TEACHER-AIR TRAFFIC CONTROL SPECIALIST [address] [place] [address] documented as of this encounter Visit Diagnoses Not on filedocumented in this encounter Additional Health Concerns Assessment Noted Time PHQ-9 Depression Total Score: 0 06/06/20 23 8:00 AM EDT documented as of this encounter Care Teams Nailhead Operator Relationship Specialty Start Date End Date Helen Alicea MD [address] [facility] 110 [place] [address] PCP - General Family Medicine 02/16/23 Helen Alicea MD [address] [facility] 110 [place] [address] PCP - ACO Reach 01/24/24 documented as of this encounter
--- OUTSIDE RECORDS SUMMARY | 2025-05-29 07:53 | XMS_ITS | Encounter Summary ---
Author Organization [facility] Address [address] [facility] [place] [address] Care Team Providers Care Vp Talent Management Name Role Phone Helen Alicea MD Primary Care Provider [phone] Helen Alicea MD Unavailable Helen Alicea MD Unavailable Encounter Details Date Type Department Care Team (Late st Contact Info) Description 06/08/2023 Abstract [facility]S Paco Nunez [facility] [address] [facility] 110 [place] [address] Helen Alicea MD [address] [facility] 110 [place] [address] Social History Tobacco Use Types Packs/Day Years [...] 8:00 AM EST [facility] [address] [facility] 110 [place] [address] Tonia Cazares PA [address] [facility] 110 [place] [address] 11/18/2025 9:20 AM EST Office Visit [facility] [address] [place] [address] Toyin Zuleta, RESTORATIVE AIDE-ELECTRICAL ENGINEERING DIRECTOR [address] [facility] [address] [place] [address] documented as of this encounter Visit Diagnoses Not on filedocumented in this encounter Additional Health Concerns Assessment Noted Time PHQ-9 Depression Total Score: 0 06/06/20 8:00 AM EDT documented as of this encounter Care Teams Vp Talent Management Relationship Specialty Start Date End Date Helen Alicea MD [address] [facility] 110 [place] [address] PCP - General Family Medicine 02/16/23 Helen Alicea MD [address] [facility] 110 [place] [address] PCP - ACO Reach 02/16/23 11/23/23 Helen Alicea MD [address] [facility] 110 [place] [address] PCP - ACO Reach 01/24/24 documented as of this encounter
--- OUTSIDE RECORDS SUMMARY | 2025-05-29 07:53 | XMS_ITS | Clinical Summary ---
Author Organization [email or web address] tem Address [facility] [id number] [address] [place] [address] Care Team Providers Care Manufacturing Planner Name Role Phone Helen Alicea MD Primary Care Provider [phone] Allergies No known active allergies Medications metoprolol tartrate (LOPRESSOR) 50 mg tablet Take 1 tablet (50 mg total) by mouth in the morning and 1 tablet (50 mg total) before bedtime. 06/05/20 24 Active propylene glycol (SYSTANE COMPLETE OPHT) Instill 1 drop to eye daily as needed. Active acetaminophen (TYLENOL EXTRA STRENGTH) 500 mg tablet Take 2 tablets (1,000 mg total) by mouth every 6 (six) hours as needed for headaches. 05/20/20 25 Active loratadine (CLARITIN) 10 mg tablet Take 1 tablet (10 mg total) by mouth in the morning. 05/21/20 25 Active sennosides-doc usate sodium (SENOKOT-S) 8.6-50 mg Take 2 tablets by mouth nightly. 05/20/20 25 Active aflibercept (EYLEA HD) 8 mg/0.07 mL injection 0.07 mL (8 mg total) by intravitreal route every 3 (three) months. 025 Discontinu ed(Stop Taking at Discharge) levETIRAcetam (KEPPRA) 500 mg tablet Take 1 tablet (500 mg total) by mouth every 12 (twelve) hours for 3 days. 05/20/20 25 025 Active Problems Problem Noted Date Diagnosed Date Fall at home, initial encounter 05/20/2025 Closed fracture of right side of base of skull 0 05/20/2025 Primary hypertension 05/20/2025 Traumatic rhabdomyolysis 05/20/2025 ICH (intracerebral hemorrhage) 05/16/2025 Encounters Date Type Department Care Team Description 05/17/2025 Travel 05/16/2025 10:25 PM EDT Ancillary Procedure [facility] [address] [place] [address] Pain 05/16/2025 10:17 PM EDT - 05/20/2025 4:15 PM EDT Hospital Encounter [facility] - GEN [address] Acute [address] [place] [address] Jd Pires MD Benson, Daniel W, MD ICH (intracerebral hemorrhage) ([facility]) (Primary Dx) Discharge Disposition: Custodial Facility-Medicare Cert 05/16/2025 6:45 PM EDT Ancillary Procedure [facility] [place] [address] Pain 05/16/2025 5:45 PM EDT Ancillary Procedure [facility] [place] [address] Pain 05/16/2025 5:40 PM EDT Ancillary Procedure [facility] [address] [place] [id number] Pain 05/16/2025 4:50 PM EDT Ancillary Procedure [facility] [place] [address] Pain 05/16/2025 4:45 PM EDT Ancillary Procedure [facility] [place] [address] Pain 05/16/2025 4:25 PM EDT Ancillary Procedure [facility] [place] [address] Pain 05/16/2025 Orders Only [facility] [address] [place] [phone] Transcribe, Orders Support User Pain (Primary Dx) from Last 3 Months Immunizations Immunization Administration Dates Next Due Covid-19, Mrna, Lnp-s, Pf,marci-sucrose,30 Mcg/0.3ml Seasonal 06/13/2023 Influenza High Dose Preserva tive Free IM 06/02/2024,06/04/2018,05/23/2017,08/01 Influenza Vaccine, Quadrival ent, Adjuvanted 05/30/2023 Influenza, High-dose, Quadrivalent 05/21/2022, Influenza, Injectable, Quadrivalent 06/29/2016 Pneumococcal Conjugate 13-Valent 09/08/2014 Pneumococcal Polysaccharide 04/10/2018, 8 RSV, recombinant, protein anaya bunit RSVpreF, adjuvant reconstituted, 0.5 mL, PF 09/08/2023 Tdap 05/16/2025,06/06/2023 Zoster Live 09/08/2012,03/30/2011 Zoster Vaccine Recombinant 09/09/2018,04/20/2018 Social History Tobacco Use Types Packs/Day Years Used Date Smoking Tobacco: Never Smokeless Tobacco: Never Tobacco Cessation:Counseling Given: Not Answered Alcohol Use Standard Drinks/Week Comments Not Currently 0 (1 standard drink = 0.6 oz pur e alcohol) [facility] Utilities Answer Date Recorded In the past 12 months has th e [employer], gas, oil, or water [employer] threatened to shut off services in your [...] Mass Index 27.15 05/17/2025 1:20 AM EDT Plan of Treatment Health Maintenance Due Date Last Done Comments Fall Risk Screening 2003 COVID-19 Vaccine (2023-10 5 season) 2025 06/02/2024, 06/13/2023, 06/13/2023, Additional history exists Influenza Vaccine 05/26/2025 06/02/2024, , 05/21/2022, Additional history exists Depression Screening 05/19/2026 05/19/2025 Tobacco Screening 05/19/2026 05/19/2025 DTaP,Tdap and Td Vaccines (3 - Td or Tdap) 05/16/2035 05/16/2025, 06/06/2023 Zoster (Shingles) Vaccine Completed 2017, 04/20/2018, 09/08/2012, Additional history exists Goals Goal Patient Goal Type Associated Problems Recent Progress Patient-Stated? Author discharge General Yes Mable Fisher, RN Note: Evaluation of progress towards goal: Safe discharge from hospital Medical Devices Not on file Procedures Procedure Name Priority Date/Time Associated Diagnosis Comments EXTRA TUBES LAVENDER TOP Routine 05/20/2025 7:54 AM EDT EXTRA TUBES Routine 05/20/2025 7:54 AM EDT MYOGLOBIN, SERUM Routine 05/20/2025 6:57 AM EDT CK TOTAL Routine 05/20/2025 6:57 AM EDT BASIC METABOLIC PANEL Routine 05/20/2025 6:57 AM EDT POTASSIUM Routine 05/19/2025 10:21 AM EDT MYOGLOBIN, SERUM Routine 05/19/2025 3:24 AM EDT CK TOTAL Routine 05/19/2025 3:24 AM EDT CBC WITH AUTO DIFFERENTIAL Routine 05/19/2025 3:24 AM EDT BASIC METABOLIC PANEL Routine 05/19/2025 3:24 AM EDT MYOGLOBIN, SERUM Routine 05/18/2025 3:21 AM EDT CK TOTAL Routine 05/18/2025 3:21 AM EDT CBC WITH AUTO DIFFERENTIAL Routine 05/18/2025 3:21 AM EDT BASIC METABOLIC PANEL Routine 05/18/2025 3:21 AM EDT MYOGLOBIN, SERUM Add-On 05/17/2025 8:54 AM EDT CK TOTAL Add-On 05/17/2025 8:54 AM EDT IONIZED MAGNESIUM Routine 05/17/2025 8:5 4 AM EDT CBC WITH AUTO DIFFERENTIAL STAT 05/17/2025 4:33 AM EDT BASIC METABOLIC PANEL STAT 05/17/2025 3:11 AM EDT BEDSIDE GLUCOSE Routine 05/17/2025 1:[address] BRAIN WO CONT STAT 05/17/2025 1:16 AM EDT URINE CULTURE STAT 05/16/2025 11:08 PM EDT BLOOD CULTURE STAT 05/16/2025 11:08 PM EDT BLOOD CULTURE STAT 05/16/2025 11:08 PM EDT REPEATED ABORH Routine 05/16/2025 11:04 PM EDT URINALYSIS STAT 05/16/2025 10:47 PM EDT DRUG SCREEN, URINE STAT 05/16/2025 10 :47 PM EDT PATEL TOP ON ICE STAT 05/16/2025 10:44 PM EDT TYPE AND SCREEN STAT 05/16/2025 10:44 PM EDT LACTATE W/ REFLEX Add-On 05/16/2025 10: 44 PM EDT RAINBOW DRAW STAT 05/16/2025 10:44 PM EDT CBC WITH AUTO DIFFERENTIAL STAT 05/16/2025 10:44 PM EDT PHOSPHORUS Add-On 05/16/2025 10:43 PM EDT MAGNESIUM Add-On 05/16/2025 10:43 PM EDT MYOGLOBIN, SERUM Add-On 05/16/2025 10:4 3 PM EDT CK TOTAL Add-On 05/16/2025 10:43 PM EDT LIPASE STAT 05/16/2025 10:43 PM EDT FIBRINOGEN STAT 05/16/2025 10:43 PM EDT COMPREHENSIVE METABOLIC PANEL STAT 05/16/2025 10:43 PM EDT AMYLASE STAT 05/16/2025 10:43 PM EDT ETHANOL STAT 05/16/2025 10:43 PM EDT APTT STAT 05/16/2025 10:43 PM EDT PROTIME & INR STAT 05/16/2025 10:[address] ABDOMEN AND PELVIS WO CONT Routine 05/16/2025 10:[address] CHEST WO CONT Routine 05/16/2025 6:[address] CTA CAROTID Routine 05/16/2025 5:[address] CTA HEAD Routine 05/16/2025 5:[address] CERVICAL SPINE WO CONT Routine 05/16/2025 4:[address] BRAIN WO CONT Routine 05/16/2025 4:45 PM EDT Pain XR CHEST 1 VW Routine 05/16/2025 4:25 PM EDT Pain from Last 3 Months Results * Lavender Top (05/20/2025 7:54 AM EDT) Extra Tube Auto Resulted 05/20/2025 9:01 AM EDT [facility] Blood Venous blood / Unknown 05/20/2025 7:54 AM EDT 05/20/2025 7:54 AM EDT Wilfredo Moreau MD LAB BLOOD ORDERABLES Final Re sult Performing Organization Address City/[facility]/ZIP Co de Phone Number [facility] [address] [place] [address], [place] [phone] * (ABNORMAL) Myoglobin, serum (05/20/2025 6:57 AM EDT) Only the most recent of5 resultswithin the time period is included. SERUM MYOGLOBIN 74.3(H) 14.3 - 65.8 ng/mL 05/20/2025 8:13 AM EDT [facility] Blood Venous blood / Unknown Venipuncture / Unknown 05/20/2025 6:57 AM EDT 05/20/2025 7:38 AM EDT Kamilah Tilley PA-C LAB BLOOD ORDERABLES Final Re sult Performing Organization Address [facility] Co de Phone Number [facility] [address] [place] [address], [place] [phone] * (ABNORMAL) CK Total (05/20/2025 6:57 AM EDT) Only the most recent of5 resultswithin the time period is included. CPK 270(H) 24 - 170 U/L 05/20/2025 8:13 AM EDT [facility] Blood Venous blood / Unknown Venipuncture / Unknown 05/20/2025 6:57 AM EDT 05/20/2025 7:38 AM EDT Kamilah Tilley PA-C LAB BLOOD ORDERABLES Final Re sult [facility] [address] [place] [address], * (ABNORMAL) Basic Metabolic Panel (05/20/2025 6:57 AM EDT) Only the most recent of4 resultswithin the time period is included. SODIUM 143 134 - 146 mmol/L 05/20/2025 8:13 AM EDT [facility] POTASSIUM 3.8 3.5 - 5.0 mmol/L 05/20/2025 8:13 AM EDT [facility] CHLORIDE 114(H) 98 - 109 mmol/L 05/20/2025 8:13 AM EDT [facility] CARBON DIOXIDE 20(L) 22 - 32 mmol/L 05/20/2025 8:13 AM EDT [facility] ANION GAP 9 5 - 15 mmol/L 05/20/2025 8:13 AM EDT [facility] BLOOD UREA NITROGEN 16 5 - 27 mg/dL 05/20/2025 8:13 AM EDT [facility] CREATININE 0.52 0.40 - 1.00 mg/dL 05/20/2025 8:13 AM EDT [facility] Comment:METHOD TRACEABLE TO IDMS STANDARD GLUCOSE 93 65 - 99 mg/dL 05/20/2025 8:13 AM EDT [facility] CALCIUM 7.6(L) 8.5 - 10.5 mg/dL 05/20/2025 8:13 AM EDT [facility] EGFR Non-Race Dependent 90 >=60 ml/min/1.7 3sq.m 05/20/2025 8:13 AM EDT [facility] Comment: Reported eGFR is based on the CKD-EPI 2020 equation that does not use a race coefficient. EGFR not calculated due to patient's gender not being defined. Blood Venous blood / Unknown Venipuncture / Unknown 05/20/2025 6:57 AM EDT 05/20/2025 7:38 AM EDT [employer] LAB BLOOD ORDERABLES Fi nal Result [facility] [address] [place] [address], * Potassium (05/19/2025 10:21 AM EDT) [facility] POTASSIUM 4.2 3.5 - 5.0 mmol/L 05/19/2025 11:23 AM EDT [facility] Blood Venous blood / Unknown Venipuncture / Unknown 05/19/2025 10:21 AM EDT 05/19/2025 10:48 AM EDT Mary Lowe [employer] LAB BLOOD ORDERABLES Fi nal Result Performing Organization Address City/[facility]/ZIP Co de Phone Number [facility] [address] [place] [address], * (ABNORMAL) CBC auto differential (05/19/2025 3:24 AM EDT) Only the most recent of4 resultswithin the time period is included. [facility] WBC 9.9 4 - 11 x10E9/L 05/19/2025 4:14 AM EDT [facility] RBC Count 3.35(L) 3.8 - 5.2 X10E12/L 05/19/2025 4:14 AM EDT [facility] Hemoglobin 10.3(L) 11.7 - 15.5 g/dL 05/19/2025 4:14 AM EDT [facility] Hematocrit 30.8(L) 35 - 47 % 05/19/2025 4:14 AM EDT [facility] MCV 92 80 - 100 fL 05/19/2025 4:14 AM EDT [facility] MCH 30.7 27 - 34 pg 05/19/2025 4:14 AM EDT [facility] MCHC 33.4 32 - 36 g/dL 05/19/2025 4:14 AM EDT [facility] RDW 14.2 11.5 - 15 % 05/19/2025 4:14 AM EDT [facility] Platelet Count 122(L) 150 - 450 X10E9/L 05/19/2025 4:14 AM EDT [facility] MPV 10.1 7 - 12 fL 05/19/2025 4:14 AM EDT [facility] Neutrophils % 83.9 % 05/19/2025 4:14 AM EDT [facility] Lymphocytes % 9.5 % 05/19/2025 4:14 AM EDT [facility] Monocytes % 5.8 % 05/19/2025 4:14 AM EDT [facility] Eosinophils % 0.4 % 05/19/2025 4:14 AM EDT [facility] Basophils % 0.4 % 05/19/2025 4:14 AM EDT [facility] Neutrophils Absolute (A) 8.3(H) 1.5 - 6.6 10*3/uL 05/19/2025 4:14 AM EDT [facility] Lymphocytes Absolute 0.9(L) 1.0 - 3.5 10*3/uL 05/19/2025 4:14 AM EDT [facility] Monocytes Absolute 0.6 0.0 - 0.9 10*3/uL 05/19/2025 4:14 AM EDT [facility] Eosinophils Absolute 0.0 0.0 - 0.4 10*3/uL 05/19/2025 4:14 AM EDT [facility] Basophils Absolute 0.0 0.0 - 0.2 10*3/uL 05/19/2025 4:14 AM T [facility] Differential Type AUTOMATED DIFFERENTIAL 05/19/2025 4:14 AM T [facility] Blood Venous blood / Unknown Venipuncture / Unknown 05/19/2025 3:24 AM EDT 05/19/2025 4:00 AM EDT Mary Lowe [facility] LAB BLOOD ORDERABLES Fi nal Result [facility] [address] [place] [address], * (ABNORMAL) Ionized magnesium (05/17/2025 8:54 AM EDT) IONIZED MAGNESIUM 0.78(H) 0.45 - 0.74 mmol/L 05/17/2025 9:28 AM EDT [facility] Blood Venous blood / Unknown Venipuncture / Unknown 05/17/2025 8:54 AM EDT 05/17/2025 9:04 AM EDT Mary Lowe [facility] LAB BLOOD ORDERABLES Fi nal Result Performing Organization Address City/[facility]/ZIP Co de Phone Number [facility] [address] [place] [address], * (ABNORMAL) Bedside Glucose *Place/Obtain serum glucose if >500 per glucometer. (05/17/2025 1:20 AM EDT) Bedside Glucose (POC) 200(H) 65 - 99 mg/dL 05/17/2025 1:21 AM EDT [facility] arterial/capilla ry 05/17/2025 1:20 AM EDT 05/17/2025 1:21 AM EDT Wilfredo Moreau MD POINT OF CARE TEST ORDERABLES Final Result [facility] [address] [place] [address], [place] * CT brain without contrast (05/17/2025 1:16 AM EDT) Only the most recent of2 resultswithin the time period is included. Anatomical Region Laterality Modality Neuro, Head, Head [...] herniation Finalized by Pako Estevez MD on 05/17/2025 1:54 AM Procedure Note [...] MD on 05/17/2025 1:54 AM Mary Lowe [employer] IMG CT ORDERABLES Final Result * Blood culture #2 (05/16/2025 11:08 PM EDT) Only the most recent of2 resultswithin the time period is included. CULTURE RESULTS NO GROWTH 5 DAYS 05/22/2025 12:03 AM EDT [facility] Blood Venous blood / Unknown Venipuncture / Unknown 05/16/2025 11:08 PM EDT 05/16/2025 11:44 PM EDT Narrative [facility] - 05/22/2025 12:03 AM EDT Suboptimal volume of blood collected, Results may be affected. Mary Lowe [facility] MICROBIOLOG[facility] - GENERAL ORDERABLES Final Result [facility] [address] [place] [address], * Urine Culture Urine, Indwelling Catheter (05/16/2025 11:08 PM EDT) CULTURE RESULTS <10,000 ORGANISMS/m L NORMAL URO GENITAL TAIWO 05/17/2025 5:55 PM EDT [facility] Urine (Urine, Indwelling Catheter) 05/16/2025 11:08 PM EDT 05/16/2025 11:27 PM EDT Salome Chávez [facility] MICRO[facility] - GENERAL ORD ERABLES Final Result [facility] [address] [place] [address], [place] [phone] * ABO Rh Repeat (05/16/2025 11:04 PM EDT) ABO O 05/16/2025 11:48 PM EDT [facility] RH Positive 05/16/2025 11:48 PM EDT [facility] Blood Venous blood / Unknown 05/16/2025 11:04 PM EDT 05/16/2025 11:14 PM EDT us Jd Pires MD BLOOD BANK TEST ORDERABLES Fi nal Result [facility] [address] [place] [address], [facility] [address] [place] [address], * Drug Screen, Urine (05/16/2025 10:47 PM EDT) AMPHETAMINE/METHAMP Negative Negative 05/16 11:28 PM EDT [facility] Comment:AMPH/METH screening cut off = 1000 ng/mL COCAINE METABOLITE Negative Negative 2024 11:28 PM EDT [facility] Comment:Cocaine screening cu t off value = 300 ng/mL ECSTASY Negative Negative 05/16/2025 11:28 PM EDT [facility] Comment:Ecstasy screening cu t off value = 500 ng/mL METHADONE Negative Negative 05/16/2025 11:28 PM EDT [facility] Comment:Methadone screening cut off value = 300 ng/mL. OPIATES Negative Negative 05/16/2025 11:28 PM EDT [facility] Comment: Opiates screening cut off value = 300 ng/mL This test is used for the detection of codeine, hydrocodone (>1000 ng/mL), morphine and hydromorphone (>900 ng/mL) in urine. OXYCODONE Negative Negative 05/16/2025 11:28 PM EDT [facility] Comment: Oxycodone screening cut off value = 300 ng/mL This test is used for the detection of oxycodone and oxymorphone in urine. PHENCYCLIDINE Negative Negative 05/16/2025 11:28 PM EDT [facility] Comment:Phencyclidine screen ing cut off value = 25 ng/mL CANNABINOIDS Negative Negative 05/16/2025 11:28 PM EDT [facility] Comment:Cannabinoids/THC scr eening cut off value = 50 ng/mL Urine Barbiturates Negative Negative 2024 11:28 PM EDT [facility] Comment:Barbiturates screeni ng cut off value = 200 ng/mL BENZODIAZEPINES Negative Negative 11:28 PM EDT [facility] Comment:Benzodiazepines scre ening cut off value = 200 ng/mL Urine 05/16/2025 10:4 7 PM EDT 05/16/2025 10:58 PM EDT Mary Lowe [employer] URINE ORDERABLES Final Result [facility] [address] [place] [address], * (ABNORMAL) Urinalysis (05/16/2025 10:47 PM EDT) COLOR Yellow Yellow 05/16/2025 11:25 PM EDT [facility] TURBIDITY Clear Clear 05/16/2025 11:25 PM EDT [facility] SPECIFIC GRAVITY 1.010 1.003 - 1.035 05/16/2025 11:25 PM EDT [facility] NITRITE Negative Negative 05/16/2025 11:25 PM EDT [facility] PH,URINE 6.0 5.0 - 8.5 05/16/2025 11:25 PM EDT [facility] LEUKOCYTE ESTERASE Negative Negative 05/16/2025 11:25 PM EDT [facility] PROTEIN 30 mg/dL(A) Negative 05/16/2025 11:25 PM EDT [facility] KETONES (URINE) 40 mg/dL(A) Negative 05/16/20 11:25 PM EDT [facility] UROBILINOGEN <1.1 eu/dL <1.1 eu/dL 05/16/2025 11:25 PM EDT [facility] BILIRUBIN (URINE) Negative Negative 05/16/2025 11:25 PM EDT [facility] BLOOD/HGB Moderate(A) Negative 05/16/2025 11:25 PM EDT [facility] MUCOUS Present(A) None 05/16/2025 11:25 PM EDT [facility] R.B.CELLS 6(H) 0 - 5 05/16/2025 11:25 PM EDT [facility] SQUAMOUS EPITHELIUM <1 0 - 5 05/16/2025 11:25 PM EDT [facility] W.B.CELLS 3 0 - 5 05/16/2025 11:25 PM EDT [facility] GLUCOSE (URINE) Negative Negative 11:25 PM EDT [facility] Urine Urine / Unknown 05/16/2025 1 0:47 PM EDT 05/16/2025 10:58 PM EDT Mary Lowe [employer] URINE ORDERABLES Final Result Performing Organization Address City/[facility]/ZIP Co de Phone Number [facility] [address] [place] [address], * Patel Top On Ice (05/16/2025 10:44 PM EDT) Extra Tube Auto Resulted 05/17/2025 12:02 AM EDT [facility] Blood Venous blood / Unknown 05/16/2025 10:44 PM EDT 05/16/2025 10:59 PM EDT Jd Pires MD LAB BLOOD ORDERABLES Final Re sult [facility] [address] [place] [address], * Lactate w/ Reflex (05/16/2025 10:44 PM EDT) [facility] LACTATE W/REFLEX 2.0 0.4 - 2.0 mmol/L 05/17/2025 12:12 AM EDT [facility] Blood Venous blood / Unknown 05/16/2025 10:44 PM EDT 05/16/2025 10:59 PM EDT Narrative [facility] - 05/17/2025 12:12 AM EDT Result did not trigger repeat Lactate, re-order if needed. Salome Chávez [employer] LAB BLOOD ORDERABLES Final Result [facility] [address] [place] [address], * Type and screen(includes indirect ellyn) (05/16/2025 10:44 PM EDT) [facility] ABO O 05/16/2025 11:47 PM EDT [facility] RH Positive 05/16/2025 11:47 PM EDT [facility] Antibody Screen Negative 05/16/2025 11:47 PM EDT [facility] Blood Venous blood / Unknown 05/16/2025 10:44 PM EDT 05/16/2025 10:57 PM EDT Mary Lowe [employer] BLOOD BANK TEST ORDERAB LES Edited Result - Final [facility] [address] [place] [address], [facility] [address] [place] [address], * (ABNORMAL) APTT (05/16/2025 10:43 PM EDT) [facility] APTT 24(L) 26 - 37 sec 05/16/2025 11:37 PM EDT [facility] Blood Venous blood / Unknown 05/16/2025 10:43 PM EDT 05/16/2025 10:59 PM EDT Mary Pedro Varunremi [employer] LAB BLOOD ORDERABLES Fi nal Result [facility] [address] [place] [address], [place] [phone] * Protime & INR (05/16/2025 10:43 PM EDT) PROTIME 11.4 9.8 - 13.2 sec 05/16/2025 11:37 PM EDT [facility] INR 1.0 0.9 - 1.2 05/16/2025 11:37 PM EDT [facility] Blood Venous blood / Unknown 05/16/2025 10:43 PM EDT 05/16/2025 10:59 PM EDT Mary Lowe [employer] LAB BLOOD ORDERABLES Fi nal Result [facility] [address] [place] [address], [place] [phone] * Fibrinogen (05/16/2025 10:43 PM EDT) FIBRINOGEN 358 190 - 480 mg/dL 05/16/2025 11:37 PM EDT [facility] Blood Venous blood / Unknown 05/16/2025 10:43 PM EDT 05/16/2025 10:59 PM EDT Mary Pedro Angiecandida [employer] LAB BLOOD ORDERABLES Fi nal Result [facility] [address] [place] [address], [place] [phone] * Phosphorus (05/16/2025 10:43 PM EDT) PHOSPHORUS 2.8 2.4 - 4.9 mg/dL 05/17/2025 12:56 AM EDT [facility] Blood Venous blood / Unknown 05/16/2025 10:43 PM EDT 05/16/2025 10:59 PM EDT Salome Chávez [facility] BLOOD ORDERABLES Final Result [facility] [address] [place] [address], * (ABNORMAL) Magnesium (05/16/2025 10:43 PM EDT) MAGNESIUM 1.7(L) 1.8 - 2.6 mg/dL 05/17/2025 12:56 AM EDT [facility] Blood Venous blood / Unknown 05/16/2025 10:43 PM EDT 05/16/2025 10:59 PM EDT Salome Chávez [facility] BLOOD ORDERABLES Final Result [facility] [address] [place] [address], [place] [phone] * (ABNORMAL) Lipase (05/16/2025 10:43 PM EDT) LIPASE <3(L) 11 - 82 U/L 05/16/2025 11:38 PM EDT [facility] Blood Venous blood / Unknown 05/16/2025 10:43 PM EDT 05/16/2025 10:59 PM EDT Mary Lowe [facility] BLOOD ORDERABLES Fi nal Result [facility] [address] [place] [address], * Amylase (05/16/2025 10:43 PM EDT) Pathologist [facility] AMYLASE 54 28 - 100 U/L 05/16/2025 11:38 PM EDT [facility] Blood Venous blood / Unknown 05/16/2025 10:43 PM EDT 05/16/2025 10:59 PM EDT [facility] Fi nal Result [facility] [address] [place] [address], * Ethanol (05/16/2025 10:43 PM EDT) Pathologist [facility] ETHANOL <0.010 <=0.080 g/dL 05/16/2025 11:38 PM EDT [facility] Comment: This report is intended for use in clinical monitoring or management of patients. Blood Venous blood / Unknown 05/16/2025 10:43 PM EDT 05/16/2025 10:59 PM EDT [facility] B[facility] ORDERABLES Fi nal Result [facility] [address] [place] [address], * (ABNORMAL) Comprehensive metabolic panel (05/16/2025 10:43 PM EDT) SODIUM 141 134 - 146 mmol/L 05/16/2025 11:38 PM EDT [facility] POTASSIUM 3.8 3.5 - 5.0 mmol/L 05/16/2025 11:38 PM EDT [facility] CHLORIDE 107 98 - 109 mmol/L 05/16/2025 11:38 PM EDT [facility] CARBON DIOXIDE 23 22 - 32 mmol/L 05/16/2025 11:38 PM T [facility] ANION GAP 11 5 - 15 mmol/L 05/16/2025 11:38 PM [facility] BLOOD UREA NITROGEN 15 5 - 27 mg/dL 05/16/2025 11:38 PM [facility] CREATININE 0.65 0.40 - 1.00 mg/dL 05/16/2025 11:38 PM [facility] Comment:METHOD TRACEABLE TO [facility] STANDARD GLUCOSE 158(H) 65 - 99 mg/dL 05/16/2025 11:38 PM [facility] CALCIUM 8.4(L) 8.5 - 10.5 mg/dL 05/16/2025 11:38 PM [facility] TOTAL PROTEIN 6.1 6.0 - 8.0 g/dL 05/16/2025 11:38 PM [facility] ALBUMIN 3.6 3.2 - 5.3 g/dL 05/16/2025 11:38 PM [facility] ALKALINE PHOSPHATASE 102 39 - 130 U/L 05/16/2025 11:38 PM [facility] AST 32 <=41 U/L 05/16/2025 11:38 PM [facility] ALT 11 <=31 U/L 05/16/2025 11:38 PM [facility] BILIRUBIN,TOTAL 0.4 0.3 - 1.2 mg/dL 05/16/2025 11:38 PM [facility] EGFR Non-Race Dependent 85 >=60 ml/min/1.7 3sq.m 05/16/2025 11:38 PM [facility] Comment: Reported eGFR is based on the CKD-EPI 2020 equation that does not use a race coefficient. EGFR not calculated due to patient's gender not being defined. Blood Venous blood / Unknown 05/16/2025 10:43 PM EDT 05/16/2025 10:59 PM EDT [facility] BLOOD ORDERABLES Fi nal Result [facility] [address] [place] [address], [place] [phone] * CT abdomen and pelvis without contrast [...] IMG DIAGNOSTIC IMAGIN G ORDERABLES Final Result from Last 3 Months Insurance [employer] MED[employer] Advance Directives * DNR Comfort Care Arrest (DNR-CCA) [place] (Latest Code Status on File) Date Activated Date Inactivated Comments 05/16/2025 10:57 PM 05/20/2025 6:16 PM * Full Code Date Activated Date Inactivated Comments 05/16/2025 10:42 PM 05/16/2025 10:57 PM Care Teams Manufacturing Planner Relationship Specialty Start Date End Date [place] [address] [place] [address] PCP - General Family Medicine 05/17/25
--- OUTSIDE RECORDS SUMMARY | 2025-05-29 07:53 | XMS_ITS | Encounter Summary ---
Author Organization [facility] Address [address] [facility] [place] [address] Care Team Providers Care Emotional Disabilities Teacher Name Role Phone Helen Medina MD Primary Care Provider [phone] Helen Medina MD Unavailable Encounter Details Date Type Department Care Team (Late Contact Info) Description 03/18/2024 Clinisync Result Encounter [facility] Department Unsolicited Helen Medina MD [address] [facility] [address] [place], [place] [id number] Social History Tobacco Use Types Packs/Day Years [...] [facility] [address] [place] [address] Tonia Cazares PA [address] [place] [address] [place], [place] [phone] 11/18/2025 9:20 AM EST [facility] [address] [place] [id number] Felter, Toyin A, EMERGENCY MANAGEMENT DIRECTOR-GLOBAL LOGISTICS MANAGER [address] [place] [address] documented as of this encounter Procedures Procedure Name Priority Date/Time Associated Diagnosis Comments MM TOMOSYNTHESIS SCREENING BI 03/18/2024 9:14 AM EDT documented in this encounter Results * MM TOMOSYNTHESIS SCREENING BI (03/18/2024 9:14 AM EDT) Anatomical Region Laterality Modality Other 03/18/2024 9:14 AM EDT Narrative 03/18/2024 9:15 AM EDT The [address] [address] Mammography Report Signed Patient: SON STROUD MR#: [id number] : 1940 Acct:[id number] Age/Sex: 84 / F ADM Date: 03/18/24 Loc: MAMMO Attending Dr: HELEN MEDINA Ordering Physician: HELEN MEDINA Results: Date of Service: 03/18/24 Follow Up: Procedure(s): MM tomosynthesis screening BI Accession Number(s): [id number] cc: HELEN MEDINA Patient Name: SON STROUD MR#: [id number] : 1940 Exam Date: 03/18/2024 Ordering Doctor: [...] radiation therapy Family Cancers None LOCATION: [facility] BREAST COMPOSITION: There are scattered areas [...] M.D. Signed By: 03/18/24914 DD/ 3 TD/TT: Mechanic Sound Technician: Procedure Note Radiology, Radiologist, MD - 03/18/2024 [place] [address] Mammography Report Signed Patient: SON STROUD LMR#: [id number] : 1940cct:[id number] Age/Sex: 84 / FADM Date: 03/18/24 Loc: MAMMO Attending Dr: HELEN MEDINA Ordering Physician: Albert MEDINAults: Date of Service: 03/18/24Follow Up: Procedure(s): MM tomosynthesis screening BI Accession Number(s): [id number] cc: HELEN MEDINA Patient Name: SON STROUD MR#: [id number] : 1940 Exam Date: 03/18/2024 Ordering Doctor: [...] radiation therapy Family Cancers None LOCATION: [facility] BREAST COMPOSITION: There are scattered areas [...] 09:14 Dictated By: Pato Wolfe M.D. Signed By:03/18/24914 DD/ 3 TD/TT: Mechanic Sound Technician: Helen Medina MD [facility] Final Result documented in this encounter Visit Diagnoses Not on filedocumented in this encounter Additional Health Concerns Assessment Noted Time PHQ-9 Depression Total Score: 0 06/06/20 23 8:00 AM EDT documented as of this encounter Care Teams Emotional Disabilities Teacher Relationship Specialty Start Date End Date Helen Medina MD [address] [address] PCP - General Family Medicine 02/16/23 Helen Medina MD [address] [address] PCP - ACO Reach 01/24/24 documented as of this encounter
--- OUTSIDE RECORDS SUMMARY | 2025-05-29 07:53 | XMS_ITS | Encounter Summary ---
Author Organization [employer] tem Address [id number] [address] [place] [address] Care Team Providers Care Material Reclaimer Name Role Phone Helen Alicea MD Primary Care Provider [phone] Encounter Details Date Type Department Care Team (Latest Contact Info) Description 05/17/2025 Travel Social History Tobacco Use Types Packs/Day Years Used Date Smoking Tobacco: Never Smokeless Tobacco: Never Alcohol Use Standard Drinks/Week Comments Not Currently 0 (1 standard drink = 0.6 oz pur e alcohol) occasional C Utilities Answer Date Recorded In the past [...] to get more. Never True 05/17/2025 Comments No Sex and Gender Information Value Date Recorded Sex Assigned at Not on file Legal Sex Female 12:07 PM EDT Gender Identity Not on file Sexual Orientation Not on file documented as of this encounter Functional Status * Audit-C Score Answer Date of Assessment Author 1 05/17/2025 11:26 AM Stephany Boyd RN * Question Answer Date of Assessment Author Q1: How often do you have a drink containing alcohol? Monthly or less 05/17/2025 11:26 AM Litzy Boyd RN Q2: How many drinks containing alcohol do you have on a typical day when you are drinking? 1 or 2 05/17/2025 11:26 AM Myron Boyd RN Q3: How often do you have six or more drinks on one occasion? Never 05/17/2025 11:26 AM Litzy Boyd RN * Question Answer Date of Assessment Author Functional Status Independent 05/17/2025 11:23 AM Litzy Boyd RN documented as of this encounter Mental Status * Question Answer Entry Date Author Overall Cognitive Status X 05/17/2025 9:55 AM ANNAT Julienne Jolley CCC-LOUVER DOOR ASSEMBLER documented in this encounter Plan of Treatment Not on file documented as of this encounter Visit Diagnoses Not on filedocumented in this encounter Care Teams Material Reclaimer Relationship Specialty Start Date End Date Helen Alicea MD [facility] [place] [address] PCP - General Family Medicine 8/23/25 documented as of this encounter
--- OUTSIDE RECORDS SUMMARY | 2025-05-29 07:55 | XMS_ITS | CCD ---
Author Organization [facility] CliniSyny Care Team Providers Care Residence Director Name Role Phone ADAM, DR PACKER Primary Care Unavailable ADAM, DR PACKER Admitting Unavailable ADAM, DR PACKER Attending Unavailable ADAM, DR PACKER Consulting Unavailable ZIEBER, DR BRISA Pedro Consulting Unavailable ADAM, DR PACKER Primary Care Unavailable HEMMER, DR TONIA Arzola Attending Unavailable HEMMER, DR TOINA Arzola Consulting Unavailable HEMMER, DR TONIA Arzola Admitting Unavailable ADAM, DR PACKER Primary Care Unavailable JAZZY HUTCHINS Attending Unavailable JAZZY HUTCHINS Admitting Unavailable EAST LEROY, DR MOISES Triana Consulting Unavailable JAZZY HUTCHINS Consulting Unavailable Shannon Dotson Unavailable Ochoa Medina MD Primary Care Provider Ochoa Medina MD Unavailable Ochoa Medina MD Unavailable ONOFRE ZULETA Attending Unavailable TONIA FLORES Attending Unavailable TONIA FLORES Attending Unavailable ONOFRE ZULETA Attending Unavailable ONOFRE ZULETA Attending Unavailable ONOFRE ZULETA Attending Unavailable JAZZY HUTCHINS Attending Unavailable NEENA LOVE Attending Unavailable DHARA RODRIGUEZ Attending Unavailable DHARA RODRIGUEZ Referring Unavailable TONIA FLORES Attending Unavailable TONIA FLORES Attending Unavailable Sage Hall DO Attending Provider Sage Hall Attending Unavailable Sage Hall Admitting Unavailable Ochoa Medina MD Primary Care Provider PCP, NOT IN SYSTEM Primary Care Unavailable DEBORAH KELLOGG Consulting Unavailable WILFREDO MOREAU Admitting Unavailable WILFREDO MOREAU Attending Unavailable SOPHIE LANDRUM Consulting Unavailable PCP, NOT IN SYSTEM Primary Care Unavailable PCP, NOT IN SYSTEM Primary Care Unavailable PCP, NOT IN SYSTEM Primary Care Unavailable PCP, NOT IN SYSTEM Primary Care Unavailable PCP, NOT IN SYSTEM Primary Care Unavailable PCP, NOT IN SYSTEM Primary Care Unavailable PCP, NOT IN SYSTEM Primary Care Unavailable Allergies Allergy Classification Reported Allergen(s) Allergy Type Date of Onset Reaction(s) Facility (20 sources) Pollen Allergy to substance 3 Rash [facility] Healthcare (20 sources) Other Propensity to adverse reactions 3 [facility] Medications Current Medications Medication Drug Class(es) Dates Sig (Normalized) Sig (Original) acetaminophen 500 mg oral tablet (4 sources) Start: 05-20-2025 take 2 tablets by mouth every six hours as needed for headache acetaminophen (TYLENOL EXTRA STRENGTH) 500 mg tablet Take 2 tablets (1,000 mg total) by mouth every 6 (six) hours as needed for headaches. 05/20/2025 Active Start: 05-19-2025 End: 05-20-2025 take 1 tablet by mouth every six hours as needed for pain and fever and headache and pain 1,000 mg, oral, Every 6 hours PRN, mild pain - pain scale 1-3, temperature greater than 38 C, headaches, moderate pain - pain scale 4-6, Starting on 05/19/25 at 0822 Start: 05-17-2025 End: 05-18-2025 take 1000 mg intravenously every six hours 1,000 mg, intravenous, at 400 mL/hr, Administer over 15 Minutes, Every 6 hours, First dose on 05/17/25 at 1715, For 24 hours alendronic acid 70 mg oral tablet (20 [...] / zinc oxide 15 mg oral capsule (7 sources) Vitamin C Multiple Vitamins-Minerals (Eye Vitamins) capsule Orally Active Aspirin (1 source) Platelet Aggregation Inhibitor, Nonsteroidal Anti-inflammatory Drug Baby Aspirin Active azelastine hydrochloride 0.137 mg/actuat metered dose nasal spray (20 sources) Histamine-1 Receptor Antagonist Start: take 1 spray(s) nasal route in the [...] TIMES DAILY 30 mL 1 05/24/2023 Active docusate sodium 50 mg / sennosides, jail 8.6 mg oral tablet (3 sources) Start: 05-16-2025 End: 05-20-2025 take 2 tablets by mouth once daily sennosides-docusate sodium (SENOKOT-S) 8.6-50 mg Take 2 tablets by mouth nightly. 05/20/2025 Active fluticasone propionate 0.05 mg/actuat metered dose nasal spray (4 sources) Corticosteroid take 1 spray(s) nasal route once daily fluticasone (Flonase) 50 MCG/ACT nasal spray Administer 1 spray into each nostril Daily Shake gently. Before first use, prime pump. After use, clean tip and replace cap. Active hydrocortisone 25 mg/ml topical cream (20 sources) Corticosteroid Start: 11-14-2023 hydrocortisone 2.5 % cream Indications: Other seborrheic dermatitis Apply topically 2 (two) times a day as needed (Rash) Apply thin layer to affected areas bid prn for flares 30 g 3 11/14/2023 Active hydrocortisone 2 .5 % cream every 12 (twelve) hours. 0 Active levETIRAcetam 500 mg oral tablet (3 sources) Start: 05-20-2025 End: 05-23-2025 take 1 tablet by mouth once levETIRAcetam (KEPPRA) 500 mg tablet Take 1 tablet (500 mg total) by mouth every 12 (twelve) hours for 3 days. 05/20/2025 05/23/2025 Active Start: 05-16-2025 End: 05-16-2025 1,000 mg, intravenous, at 40 0 mL/hr, Administer over 15 Minutes, Once, On Mon05/16/25 at 2225, For 1 dose, Look-alike/sound-alike medication - verify indication for use. loratadine 10 mg oral tablet (3 sources) Start: 05-21-2025 take 1 tablet by mouth in the morning loratadine (CLARITIN) 10 mg tablet Take 1 tablet (10 mg total) by mouth in the morning. 05/21/2025 Active Start: 05-21-2025 take 1 tablet by elda th in the morning loratadine (CLARITIN) 10 mg tablet Take 1 tablet (10 mg total) by mouth in the morning. 05/21/2025 Start: 05-19-2025 End: 05-20-2025 take 10 mg by mouth once daily 10 mg, oral, Daily, Fir st dose on 05/19/25 at 1230, Look-alike/sound-alike medication - verify indication for use. Multiple Vitamins-Minerals ( Eye Vitamins) capsule (20 sources) Multiple Vitamin s-Minerals (Eye Vitamins) capsule Orally Active Multiple Vitamin s-Minerals (Eye Vitamins) capsule Orally 0 Active Propylene glycol (2 sources) take 1 drop(s) into the eye(s) once daily as needed propylene glycol (SYSTANE COMPLETE OPHT) Instill 1 drop to eye daily as needed. Active take 1 drop(s) into the eye(s) once daily as needed propylene glycol (SYSTANE COMPLETE OPHT) Instill 1 drop to eye daily as needed. Completed/Discontinued Medications Medication Drug Class(es) Dates Sig (Normalized) Sig (Original) aflibercept (EYLEA HD) 8 mg/0.07 mL injection (1 source) End: 05-20-2025 aflibercept (EYLEA HD) 8 mg/0.07 mL injection 0.07 mL (8 mg total) by intravitreal route every 3 (three) months. 05/20/2025 Discontinued (Stop Taking at Discharge) ampicillin-sulbac lópez (UNASYN) 3,000 mg in sodium chloride 0.9 % 100 mL IVPB W/ADAPTER (1 source) Start: 05-17-2025 End: 05-20-2025 take 3000 mg intravenously every six hours 3,000 mg, intravenous, at 200 mL/hr, Administer over 30 Minutes, Every 6 hours, First dose on 05/17/25 at 1715, For 5 days, For Vial-2-Bag: Attach bag and vial to adapter - Use immediately after activating; dissolve drug prior to administration., Indication: Aspiration pneumonia Calcium Gluconate (1 source) Start: 05-16-2025 End: 05-20-2025 calcium gluconate IVPB 1000 mg/50 mL (20 mg/mL premix) carvedilol 12.5 mg oral tablet (1 source) alpha-Adrenergic Korey, beta-Adrenergic Korey Start: 05-19-2025 End: 05-20-2025 take 12.5 mg by mouth twice daily 12.5 mg, oral, 2 times daily, First dose on Mon05/19/25 at 0900, Give with meal or snack. Look-alike/sound- alike medication - verify indication for use. doxycycline monohydrate 100 mg oral capsule (1 source) Tetracycline-class Drug Start: 12-28-2015 take 1 capsule by mouth every twelve hours Doxycycline Monohydrate 100 mg 1 capsule Orally bid for 10 day(s) Dec, Not-Taking 0.3 ml enoxaparin sodium 100 mg/ml prefilled syringe (1 source) Low Molecular Weight Heparin Start: 05-18-2025 End: 05-20-2025 inject 30 mg by subcutaneous injection every twelve hours 30 mg, subcutaneous, Every 12 hours, First dose on Mon05/18/25 at 1800, Look-alike/sound- alike medication - verify indication for use. glucagon (rdna) 1 mg injection (1 source) Antihypoglycemic Agent Start: 05-16-2025 End: 05-20-2025 150 ml glucose 50 mg/ml injection (3 sources) Start: 05-16-2025 End: 05-20-2025 Start: 05-16-2025 End: 05-20-2025 Start: 05-16-2025 End: 05-20-2025 1 ml hydrALAZINE hydrochloride 20 mg/ml injection (2 sources) Arteriolar Vasodilator Start: 05-16-2025 End: 05-20-2025 take 10 mg intravenously every six hours as needed 10 mg, intravenous, Every 6 hours PRN, high blood pressure, SBP>140 and HR 4 ml labetalol hydrochloride 5 mg/ml cartridge (2 sources) beta-Adrenergic Korey Start: 05-19-2025 End: 05-20-2025 10 mg, intravenous, Every 10 min PRN, high blood pressure, SBP >140 and HR >60. MAX of 3 doses per hour., Starting on Mon05/19/25 at 0820, Look-alike/sound- alike medication - verify indication for use. Start: 05-16-2025 End: 05-19-2025 20 mg, intravenous, Every 10 min PRN, high blood pressure, Starting on Mon05/16/25 at 2256, For systolic blood pressure greater than 140 mmHg, give first, hold for HR levETIRAcetam (KEPPRA) IVPB 500 mg/100 mL in iso-osmotic sodium chloride (5 mg/mL premix) (1 source) Start: 05-17-2025 End: 05-20-2025 levETIRAcetam (KEPPRA) IVPB 500 mg/100 mL in iso-osmotic sodium chloride (5 mg/mL premix) magnesium sulfate IVPB 2000 mg/50 mL in iso-osmotic water (40 mg/mL premix) (1 source) Start: 05-16-2025 End: 05-20-2025 magnesium sulfate IVPB 2000 mg/50 mL in iso-osmotic water (40 mg/mL premix) metoprolol tartrate 50 mg oral tablet (20 sources) beta-Adrenergic Korey Start: 06-05-2024 End: 05-19-2025 50 mg, oral, 2 times daily, First dose on 05/18/25 at 0900, Hold for HR less than 70 Look-alike/sound-alike medication - verify indication for use. Start: 03-05-2024 metoprolol tar trate (Lopressor) 50 MG tablet Indications: Benign essential hypertension (CMS/HCC) TAKE 1 TABLET TWICE DAILY WITH FOOD 200 tablet 3 03/05/2024 Active Start: 09-27-2023 metoprolol tar trate (Lopressor) 50 MG tablet Indications: Benign essential hypertension (CMS/HCC) TAKE 1 TABLET TWICE DAILY WITH FOOD 200 tablet 3 09/27/2023 Active Metoprolol Tartr ate Active 2 ml ondansetron 2 mg/ml injection (1 source) Serotonin-3 Receptor Antagonist Start: 05-16-2025 End: 05-20-2025 take 4 mg intravenously every six hours as needed for nausea pantoprazole 40 mg injection (1 source) Proton Pump Inhibitor Start: 05-17-2025 End: 05-19-2025 40 mg, intravenous, Every morning before breakfast, First dose on 05/17/25 at 0700, Look-alike/sound -alike medication - verify indication for use., Indication: Other (CARLOS), Please specify: Stress Ulcer Prophylaxis polyethylene glycol 3350 13372 mg powder for oral solution (1 source) Osmotic Laxative Start: 05-16-2025 End: 05-20-2025 Potassium Chloride (1 source) Start: 05-16-2025 End: 05-20-2025 potassium chloride (K-TAB,KLOR-CON) CR tablet 20-40 mEq potassium chloride IVPB 10 mEq/50 mL in water (0.2 mEq/mL premix) (1 source) Start: 05-16-2025 End: 05-20-2025 potassium chloride IVPB 10 mEq/50 mL in water (0.2 mEq/mL premix) 1000 ml sodium chloride 9 mg/ml injection (4 sources) Start: 05-16-2025 End: 05-17-2025 1,000 mL, intravenous, at 500 mL/hr, Administer over 2 Hours, Once, On Mon05/16/25 at 2300, For 1 dose Start: 05-16-2025 End: 05-20-2025 3 mL, intravenous, Every 12 hours scheduled, First dose on Mon05/16/25 at 2255 Start: 05-16-2025 End: 05-18-2025 take 100 mL intravenously every hour 100 mL/hr, intravenous, Continuous, Starting on Mon05/16/25 at 2255, For 1 day Start: 05-16-2025 End: 05-20-2025 sodium phosphate 20 mmol in sodium chloride 0.9 % 250 mL IVPB (1 source) Start: 05-16-2025 End: 05-20-2025 sodium phosphate 20 mmol in sodium chloride 0.9 % 250 mL IVPB 1 ml triamcinolone acetonide 40 mg/ml prefilled [...] Classification Problem Date Documented Da te Episodic/Chronic Acute cerebrovascular disease (8 sources) Cerebral hemorrhage; Translations: [Nontraumatic intracerebral hemorrhage, unspecified] Onset: 05-16-2025 05-20-2025 Chronic Administrative/social admission (2 sources) Patient encounter status; Translations: [Other specified counseling] 09-12-2024 Episodic Disorders of lipid metabolism (20 sources) Hypercholesterolemia ; Translations: [Pure hypercholesterolemia , unspecified] Onset: 03-13-2023 06-20-2023 Chronic Diverticulosis and diverticulitis (20 sources) Diverticular disease; Translations: [Diverticulosis of intestine, part unspecified, without perforation or abscess without bleeding] Onset: 03-13-2023 03-13-2023 Chronic E Codes: Fall (4 sources) Fall; Translations: [Unspecified fall, initial encounter] Onset: 05-20-2025 09-06-2024 Episodic Essential hypertension (20 sources) Benign [...] autonomic nervous system, unspecified] 11-18-2024 Episodic Other injuries and conditions due to external causes (2 sources) Traumatic rhabdomyolysis; Translations: [Traumatic ischemia of muscle, initial encounter] Onset: 05-20-2025 05-20-2025 Episodic Other injuries and conditions due to external causes (1 source) Injury of head Onset: 05-16-2025 Episodic Other lower respiratory disease (2 sources) [...] apnea (adult) (pediatric)] Onset: 03-13-2023 03-13-2023 Chronic Residual codes; unclassified (1 source) Pain, unspecified; Translations: [Pain, unspecified] Onset: 05-16-2025 Episodic Retinal detachments; defects; vascular occlusion; and retinopathy (20 sources) Bilateral degeneration of macula; 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] Onset: 03-13-2023 03-13-2023 Chronic Skull and face fractures (2 sources) Closed fracture of base of skull; Translations: [Fracture of base of skull, right side, initial encounter for closed fracture] Onset: 05-20-2025 05-20-2025 Episodic Spondylosis; intervertebral disc disorders; other back problems (20 sources) Cervical spondylosis; Translations: [Spondylosis without myelopathy or radiculopathy, cervical region] Onset: 03-13-2023 03-13-2023 Chronic Superficial injury; contusion (2 sources) Contusion of left front wall of thorax, subsequent encounter; Translations: [Other specified aftercare] 09-09-2024 Episodic Unclassified (1 source) CONTACT W/AND (SUSP) EXPOS COVID-19; Translations: [CONTACT W/AND (SUSP) EXPOS COVID-19] Onset: 03-04-2022 Unclassified (1 source) Found in bathtub today Onset: 05-16-2025 Past or Other Problems Problem Classification Problem [...] disorders (20 sources) Mood disorders Onset: 06-06-2023 Resolved: 05-19-2025 06-06-2023 Other bone disease and musculoskeletal deformities (1 source) Other specified disorders of bone density and structure, right thigh; Translations: [[facility] D/O BONE DEN STRUCT RT THIGH] Onset: 06-18-2021 Episodic Results Test Name Value Interpretation Reference Range Facility BASIC METABOLIC PANELon 082 Anion gap [Moles/Vol] 9 mmol/L Normal 5-15 [facility] Comment on above: Performed By: #### F IBR #### [facility] ([facility]) [address] [place] [address] VIR Calcium [Mass/Vol] 7.6 mg/dL Low 8.5-10.5 [facility] Comment on above: Performed By: #### F IBR #### [facility] ([facility]) [address] [place] [address] VIR Chloride [Moles/Vol] 114 mmol/L High 98-109 [facility] Comment on above: Performed By: #### F IBR #### [facility] ([facility]) [address] [place] [address] VIR CO2 [Moles/Vol] 20 mmol/L Low 22-32 [facility] Comment on above: Performed By: #### F IBR #### [facility] ([facility]) [address] [place] [address] VIR Creatinine [Mass/Vol] 0.52 mg/dL Normal 0.40-1.00 [facility] Comment on above: Result Comment: METH OD TRACEABLE TO IDMS STANDARD Performed By: #### F IBR #### [facility] ([facility]) [address] [place] [address] VIR GFR/1.73 sq M.predicted among non-blacks MDRD (S/P/Bld) [Vol rate/Area] 90 mL/min/{1.73_m2} Normal >=60 [facility] Comment on above: Result Comment: Repo rted eGFR is based on the CKD-EPI 2020 equation that does not use a race coefficient. EGFR not calculated due to patient's gender not being defined. Performed By: #### F IBR #### [facility] ([facility]) [address] [place] [address] VIR Glucose [Mass/Vol] 93 mg/dL Normal 65-99 [facility] Comment on above: Performed By: #### F IBR #### [facility] ([facility]) [address] [place] [address] VIR Potassium [Moles/Vol] 3.8 mmol/L Normal 3.5-5.0 [facility] Comment on above: Performed By: #### F IBR #### [facility] ([facility]) [address] [place] [address] VIR Sodium [Moles/Vol] 143 mmol/L Normal 134-146 [facility] Comment on above: Performed By: #### F IBR #### [facility] ([facility]) [address] [place] [address] VIR Urea nitrogen [Mass/Vol] 16 mg/dL Normal 5-27 [facility] Comment on above: Performed By: #### F IBR #### [facility] ([facility]) [address] [place] [address] VIR Basic Metabolic Panelon 04-26 Anion gap [Moles/Vol] 9 mmol/L 5 - 15 mmol/L [facility] Calcium [Mass/Vol] 7.6 mg/dL Low 8.5 - 10. 5 mg/dL [facility] Chloride [Moles/Vol] 114 mmol/L High 98 - 10 9 mmol/L [facility] CO2 [Moles/Vol] 20 mmol/L Low 22 - 32 mmol/L [facility] Creatinine [Mass/Vol] 0.52 mg/dL 0.40 - 1.00 mg/dL [facility] Comment on above: METHOD TRACEABLE TO IDWA STANDARD EGFR Non-Race Dependent 90 - PINF [facility] Comment on above: Reported eGFR is bas ed on the CKD-EPI 2020 equation that does not use a race coefficient. EGFR not calculated due to patient's gender not being defined. Glucose [Mass/Vol] 93 mg/dL 65 - 99 mg/dL [facility] Potassium [Moles/Vol] 3.8 mmol/L 3.5 - 5.0 mmol/L [facility] Sodium [Moles/Vol] 143 mmol/L 134 - 146 mmol/L [facility] Urea nitrogen [Mass/Vol] 16 mg/dL 5 - 27 mg/dL [facility] CK TOTALon 05-20-2025 CPK 270 U/L High 24-170 [facility] Comment on above: Performed By: #### F IBR #### [facility] ([facility]) [address] [place] [address] VIR CK Totalon 05-20-2025 CK [Catalytic activity/Vol] 270 U/L High 24 - 170 U/L [facility] Lavender Topon 05-20-2025 Extra Tube Auto Resulted [facility] MYOGLOBIN, SERUMon 5 SERUM MYOGLOBIN 74.3 ng/mL High 14.3-65.8 [facility] Comment on above: Performed By: #### F IBR #### [facility] ([facility]) [address] [place] [address] VIR Myoglobin, serumon 5 Myoglobin [Mass/Vol] 74.3 ng/mL High 14.3 - 65.8 ng/mL [facility] No Panel Informationon 05-20 Interpretation and review of laboratory results Abnormal [facility] BASIC METABOLIC PANELon 04-26 Anion gap [Moles/Vol] 9 mmol/L Normal 5-15 [facility] Comment on above: Performed By: #### F IBR #### [facility] ([facility]) [address] [place] [address] VIR Calcium [Mass/Vol] 7.9 mg/dL Low 8.5-10.5 [facility] Comment on above: Performed By: #### F IBR #### [facility] ([facility]) [address] [place] [address] VIR Chloride [Moles/Vol] 115 mmol/L High 98-109 [facility] Comment on above: Performed By: #### F IBR #### [facility] ([facility]) [address] [place] [address] VIR CO2 [Moles/Vol] 19 mmol/L Low 22-32 [facility] Comment on above: Performed By: #### F IBR #### [facility] ([facility]) [address] [place] [address] VIR Creatinine [Mass/Vol] 0.49 mg/dL Normal 0.40-1.00 [facility] Comment on above: Result Comment: METH OD TRACEABLE TO IDMS STANDARD Performed By: #### F IBR #### [facility] ([facility]) [address] [place] [address] VIR EGFR (CKD-EPI) NON-RACE DEPENDENT >^90 Normal >=60 [facility] Comment on above: Result Comment: Repo rted eGFR is based on the CKD-EPI 2020 equation that does not use a race coefficient. EGFR not calculated due to patient's gender not being defined. Performed By: #### F IBR #### [facility] ([facility]) [address] [place] [address] VIR Glucose [Mass/Vol] 105 mg/dL High 65-99 [facility] Comment on above: Performed By: #### F IBR #### [facility] ([facility]) [address] [place] [address] VIR Potassium [Moles/Vol] 3.6 mmol/L Normal 3.5-5.0 [facility] Comment on above: Performed By: #### F IBR #### [facility] ([facility]) [address] [place] [address] VIR Sodium [Moles/Vol] 143 mmol/L Normal 134-146 [facility] Comment on above: Performed By: #### F IBR #### [facility] ([facility]) [address] [place] [address] VIR Urea nitrogen [Mass/Vol] 15 mg/dL Normal 5-27 [facility] Comment on above: Performed By: #### F IBR #### [facility] ([facility]) [address] [place] [address] VIR Basic Metabolic Panelon 08-2 Anion gap [Moles/Vol] 9 mmol/L 5 - 15 mmol/L [facility] Calcium [Mass/Vol] 7.9 mg/dL Low 8.5 - 10. 5 mg/dL [facility] Chloride [Moles/Vol] 115 mmol/L High 98 - 10 9 mmol/L [facility] CO2 [Moles/Vol] 19 mmol/L Low 22 - 32 mmol/L [facility] Creatinine [Mass/Vol] 0.49 mg/dL 0.40 - 1.00 mg/dL [facility] Comment on above: METHOD TRACEABLE TO IDMS STANDARD EGFR Non-Race Dependent - [facility] Comment on above: Reported eGFR is bas ed on the CKD-EPI 2020 equation that does not use a race coefficient. EGFR not calculated due to patient's gender not being defined. Glucose [Mass/Vol] 105 mg/dL High 65 - 99 mg/dL [facility] Potassium [Moles/Vol] 3.6 mmol/L 3.5 - 5.0 mmol/L [facility] Sodium [Moles/Vol] 143 mmol/L 134 - 146 mmol/L [facility] Urea nitrogen [Mass/Vol] 15 mg/dL 5 - 27 mg/dL [facility] CBC WITH AUTO DIFFERENTIALon 05-19-2025 BASOPHILS ABSOLUTE COUNT (10*3/UL) BY AUTOMATED COUNT 0.0 10*3/uL Normal 0.0-0.2 [facility] Comment on above: Performed By: #### F IBR #### [facility] ([facility]) [address] [place] [address] VIR BASOPHILS RELATIVE PERCENT BY AUTOMATED COUNT 0.4 % Normal [facility] Comment on above: Performed By: #### F IBR #### [facility] ([facility]) [address] [place] [address] VIR CELLAVISION DIFFERENTIAL TYPE AUTOMATED DIFFERENTIAL Normal [facility] Comment on above: Performed By: #### F IBR #### [facility] [facility] ([facility]) [address] [place] [address] VIR Eosinophils (Bld) [#/Vol] 0.0 10*3/uL Normal 0.0-0.4 [facility] Comment on above: Performed By: #### F IBR #### [facility] ([facility]) [address] [place] [address] VIR EOSINOPHILS RELATIVE PERCENT BY AUTOMATED COUNT 0.4 % Normal [facility] Comment on above: Performed By: #### F IBR #### [facility] ([facility]) [address] [place] [address] VIR Erythrocyte distribution width (RBC) [Ratio] 14.2 % Normal 11.5-15 [facility] Comment on above: Performed By: #### F IBR #### [facility] ([facility]) [address] [place] [address] VIR Hematocrit (Bld) [Volume fraction] 30.8 % Low 35-47 [facility] Comment on above: Performed By: #### F IBR #### [facility] ([facility]) [address] [place] [address] VIR Hemoglobin (Bld) [Mass/Vol] 10.3 g/dL Low 11.7-15. 5 [facility] Comment on above: Performed By: #### F IBR #### [facility] ([facility]) [address] [place] [address] VIR LYMPHOCYTES ABSOLUTE COUNT (10*3/UL) BY AUTOMATED COUNT 0.9 10*3/uL Low 1.0-3.5 [facility] Comment on above: Performed By: #### F IBR #### [facility] ([facility]) [address] [place] [address] VIR LYMPHOCYTES RELATIVE PERCENT BY AUTOMATED COUNT 9.5 % Normal [facility] Comment on above: Performed By: #### F IBR #### [facility] ([facility]) [address] [place] [address] VIR MCH (RBC) [Entitic mass] 30.7 pg Normal 27-34 [facility] Comment on above: Performed By: #### F IBR #### [facility] ([facility]) [address] [place] [address] VIR MCHC (RBC) [Mass/Vol] 33.4 g/dL Normal 32-36 [facility] Comment on above: Performed By: #### F IBR #### [facility] ([facility]) [address] [place] [address] VIR MCV (RBC) [Entitic vol] 92 fL Normal 80-100 [facility] Comment on above: Performed By: #### F IBR #### [facility] ([facility]) [address] [place] [address] VIR MONOCYTES ABSOLUTE COUNT (10*3/UL) BY AUTOMATED COUNT 0.6 10*3/uL Normal 0.0-0.9 [facility] Comment on above: Performed By: #### F IBR #### [facility] ([facility]) [address] [place] [address] VIR MONOCYTES RELATIVE PERCENT BY AUTOMATED COUNT 5.8 % Normal [facility] Comment on above: Performed By: #### F IBR #### [facility] ([facility]) [address] [place] [address] VIR NEUTROPHILS ABSOLUTE COUNT BY AUTOMATED COUNT 8.3 10*3/uL High 1.5-6.6 [facility] Comment on above: Performed By: #### F IBR #### [facility] ([facility]) [address] [place] [address] VIR NEUTROPHILS RELATIVE PERCENT BY AUTOMATED COUNT 83.9 % Normal [facility] Comment on above: Performed By: #### F IBR #### [facility] ([facility]) [address] [place] [address] VIR Platelet mean volume (Bld) [Entitic vol] 10.1 fL Normal 7-12 [facility] Comment on above: Performed By: #### F IBR #### [facility] ([facility]) [address] [place] [address] VIR Platelets (Bld) [#/Vol] 122 10*3/uL Low 150-450 [facility] Comment on above: Performed By: #### F IBR #### [facility] ([facility]) [address] [place] [address] VIR RBC COUNT 3.35 X10E12/L Low 3.8-5.2 [facility] Comment on above: Performed By: #### F IBR #### [facility] ([facility]) [address] [place] [address] VIR WBC (Bld) [#/Vol] 9.9 10*3/uL Normal 4-11 [facility] Comment on above: Performed By: #### F IBR #### [facility] ([facility]) [address] [place] [address] VIR CBC auto differentialon 04-26 Basophils (Bld) [#/Vol] 0 10*3/uL 0.0 - 0.2 10*3/uL [facility] Basophils/100 WBC (Bld) 0.4 % [facility] Differential cell count method Nom (Bld) AUTOMATED DIFFERENTIAL [facility] Eosinophils (Bld) [#/Vol] 0 10*3/uL 0. 0 - 0.4 10*3/uL [facility] Eosinophils/100 WBC (Bld) 0.4 % [facility] Erythrocyte distribution width (RBC) [Ratio] 14.2 % 11.5 - 15 % [facility] Hematocrit (Bld) [Volume fraction] 30.8 % Low 35 - 47 % [facility] Hemoglobin (Bld) [Mass/Vol] 10.3 g/dL Low 11.7 - 15.5 g/dL [facility] Interpretation and review of laboratory results Abnormal [facility] Lymphocytes (Bld) [#/Vol] 0.9 10*3/uL Low 1. 0 - 3.5 10*3/uL [facility] Lymphocytes/100 WBC (Bld) 9.5 % [facility] MCH (RBC) [Entitic mass] 30.7 pg 27 - 34 pg [facility] MCHC (RBC) [Mass/Vol] 33.4 g/dL 32 - 3 6 g/dL [facility] MCV (RBC) [Entitic vol] 92 fL 80 - 100 fL [facility] Monocytes (Bld) [#/Vol] 0.6 10*3/uL 0.0 - 0.9 10*3/uL [facility] Monocytes/100 WBC (Bld) 5.8 % [facility] Neutrophils (Bld) [#/Vol] 8.3 10*3/uL High 1. 5 - 6.6 10*3/uL [facility] Neutrophils/100 WBC (Bld) 83.9 % [facility] Platelet mean volume (Bld) [Entitic vol] 10.1 fL 7 - 12 fL [facility] Platelets (Bld) [#/Vol] 122 10*3/uL Low [facility] RBC (Bld) [#/Vol] 3.35 10*6/uL Low [facility] WBC LM Ql (Sput) 9.9 [facility] CK TOTALon 05-19-2025 CPK 653 U/L High 24-170 [facility] Comment on above: Performed By: #### F IBR #### [facility] ([facility]) [address] [place] [address] VIR CK Totalon 05-19-2025 CK [Catalytic activity/Vol] 653 U/L High 24 - 170 U/L [facility] MYOGLOBIN, SERUMon 5 SERUM MYOGLOBIN 95.4 ng/mL High 14.3-65.8 [facility] Comment on above: Performed By: #### F IBR #### [facility] ([facility]) [address] [place] [address] VIR Myoglobin, serumon 5 Myoglobin [Mass/Vol] 95.4 ng/mL High 14.3 - 65.8 ng/mL [facility] No Panel Informationon 05-19 Interpretation and review of laboratory results Abnormal [facility] POTASSIUMon 05-19-2025 Potassium [Moles/Vol] 4.2 mmol/L Normal 3.5-5.0 [facility] Comment on above: Performed By: #### F IBR #### [facility] ([facility]) [address] [place] [address] VIR Potassiumon 05-19-2025 Interpretation and review of laboratory results Normal [facility] Potassium [Moles/Vol] 4.2 mmol/L 3.5 - 5.0 mmol/L [facility] BASIC METABOLIC PANELon 04-26 Anion gap [Moles/Vol] 7 mmol/L Normal 5-15 [facility] Comment on above: Performed By: #### C BCA #### [facility] ([facility]) [address] [place] [address] VIR Calcium [Mass/Vol] 7.8 mg/dL Low 8.5-10.5 [facility] Comment on above: Performed By: #### C BCA #### [facility] ([facility]) [address] [place] [address] VIR Chloride [Moles/Vol] 115 mmol/L High 98-109 [facility] Comment on above: Performed By: #### C BCA #### [facility] ([facility]) [address] [place] [address] VIR CO2 [Moles/Vol] 22 mmol/L Normal 22-32 [facility] Comment on above: Performed By: #### C BCA #### [facility] ([facility]) [address] [place] [address] VIR Creatinine [Mass/Vol] 0.49 mg/dL Normal 0.40-1.00 [facility] Comment on above: Result Comment: METH OD TRACEABLE TO IDMS STANDARD Performed By: #### C BCA #### [facility] ([facility]) [address] [place] [address] VIR EGFR (CKD-EPI) NON-RACE DEPENDENT >^90 Normal >=60 [facility] Comment on above: Result Comment: Repo rted eGFR is based on the CKD-EPI 2020 equation that does not use a race coefficient. EGFR not calculated due to patient's gender not being defined. Performed By: #### C BCA #### [facility] ([facility]) [address] [place] [address] VIR Glucose [Mass/Vol] 110 mg/dL High 65-99 [facility] Comment on above: Performed By: #### C BCA #### [facility] ([facility]) [address] [place] [address] VIR Potassium [Moles/Vol] 3.8 mmol/L Normal 3.5-5.0 [facility] Comment on above: Performed By: #### C BCA #### [facility] ([facility]) [address] [place] [address] VIR Sodium [Moles/Vol] 144 mmol/L Normal 134-146 [facility] Comment on above: Performed By: #### C BCA #### [facility] ([facility]) [address] [place] [address] VIR Urea nitrogen [Mass/Vol] 12 mg/dL Normal 5-27 [facility] Comment on above: Performed By: #### C BCA #### [facility] ([facility]) [address] [place] [address] VIR Basic Metabolic Panelon 082 Anion gap [Moles/Vol] 7 mmol/L 5 - 15 mmol/L [facility] Calcium [Mass/Vol] 7.8 mg/dL Low 8.5 - 10. 5 mg/dL [facility] Chloride [Moles/Vol] 115 mmol/L High 98 - 10 9 mmol/L [facility] CO2 [Moles/Vol] 22 mmol/L 22 - 32 mmol/L [facility] Creatinine [Mass/Vol] 0.49 mg/dL 0.40 - 1.00 mg/dL [facility] Comment on above: METHOD TRACEABLE TO IDMS STANDARD EGFR Non-Race Dependent - PIN P [facility] Comment on above: Reported eGFR is bas ed on the CKD-EPI 2020 equation that does not use a race coefficient. EGFR not calculated due to patient's gender not being defined. Glucose [Mass/Vol] 110 mg/dL High 65 - 99 mg/dL [facility] Interpretation and review of laboratory results Abnormal [facility] Potassium [Moles/Vol] 3.8 mmol/L 3.5 - 5.0 mmol/L [facility] Sodium [Moles/Vol] 144 mmol/L 134 - 146 mmol/L [facility] Urea nitrogen [Mass/Vol] 12 mg/dL 5 - 27 mg/dL [facility] CBC WITH AUTO DIFFERENTIALon 05-18-2025 BASOPHILS ABSOLUTE COUNT (10*3/UL) BY AUTOMATED COUNT 0.1 10*3/uL Normal 0.0-0.2 [facility] Comment on above: Performed By: #### C BCA #### [facility] ([facility]) [address] [place] [address] VIR BASOPHILS RELATIVE PERCENT BY AUTOMATED COUNT 0.5 % Normal [facility] Comment on above: Performed By: #### C BCA #### [facility] ([facility]) [address] [place] [address] VIR CELLAVISION DIFFERENTIAL TYPE AUTOMATED DIFFERENTIAL Normal [facility] Comment on above: Performed By: #### C BCA #### [facility] ([facility]) [address] [place] [address] VIR Eosinophils (Bld) [#/Vol] 0.0 10*3/uL Normal 0.0-0.4 [facility] Comment on above: Performed By: #### C BCA #### [facility] ([facility]) [address] [place] [address] VIR EOSINOPHILS RELATIVE PERCENT BY AUTOMATED COUNT 0.4 % Normal [facility] Comment on above: Performed By: #### C BCA #### [facility] ([facility]) [address] [place] [address] VIR Erythrocyte distribution width (RBC) [Ratio] 14.3 % Normal 11.5-15 [facility] Comment on above: Performed By: #### C BCA #### [facility] ([facility]) [address] [place] [address] VIR Hematocrit (Bld) [Volume fraction] 30.7 % Low 35-47 [facility] Comment on above: Performed By: #### C BCA #### [facility] ([facility]) [address] [place] [address] VIR Hemoglobin (Bld) [Mass/Vol] 10.2 g/dL Low 11.7-15. 5 [facility] Comment on above: Performed By: #### C BCA #### [facility] ([facility]) [address] [place] [address] VIR LYMPHOCYTES ABSOLUTE COUNT (10*3/UL) BY AUTOMATED COUNT 0.9 10*3/uL Low 1.0-3.5 [facility] Comment on above: Performed By: #### C BCA #### [facility] ([facility]) [address] [place] [address] VIR LYMPHOCYTES RELATIVE PERCENT BY AUTOMATED COUNT 8.6 % Normal [facility] Comment on above: Performed By: #### C BCA #### [facility] ([facility]) [address] [place] [address] VIR MCH (RBC) [Entitic mass] 30.5 pg Normal 27-34 [facility] Comment on above: Performed By: #### C BCA #### [facility] ([facility]) [address] [place] [address] VIR MCHC (RBC) [Mass/Vol] 33.3 g/dL Normal 32-36 [facility] Comment on above: Performed By: #### C BCA #### [facility] ([facility]) [address] [place] [address] VIR MCV (RBC) [Entitic vol] 92 fL Normal 80-100 [facility] Comment on above: Performed By: #### C BCA #### [facility] ([facility]) [address] [place] [address] VIR MONOCYTES ABSOLUTE COUNT (10*3/UL) BY AUTOMATED COUNT 0.7 10*3/uL Normal 0.0-0.9 [facility] Comment on above: Performed By: #### C BCA #### [facility] ([facility]) [address] [place] [address] VIR MONOCYTES RELATIVE PERCENT BY AUTOMATED COUNT 6.4 % Normal [facility] Comment on above: Performed By: #### C BCA #### [facility] ([facility]) [address] [place] [address] VIR NEUTROPHILS ABSOLUTE COUNT BY AUTOMATED COUNT 9.1 10*3/uL High 1.5-6.6 [facility] Comment on above: Performed By: #### C BCA #### [facility] ([facility]) [address] [place] [address] VIR NEUTROPHILS RELATIVE PERCENT BY AUTOMATED COUNT 84.1 % Normal [facility] Comment on above: Performed By: #### C BCA #### [facility] ([facility]) [address] [place] [address] VIR Platelet mean volume (Bld) [Entitic vol] 10.4 fL Normal 7-12 [facility] Comment on above: Performed By: #### C BCA #### [facility] ([facility]) [address] [place] [address] VIR Platelets (Bld) [#/Vol] 109 10*3/uL Low 150-450 [facility] Comment on above: Performed By: #### C BCA #### [facility] ([facility]) [address] [place] [address] VIR RBC COUNT 3.35 X10E12/L Low 3.8-5.2 [facility] Comment on above: Performed By: #### C BCA #### [facility] ([facility]) [address] [place] [address] VIR WBC (Bld) [#/Vol] 10.8 10*3/uL Normal 4-11 [facility] Comment on above: Performed By: #### C GAIL #### [facility] ([facility]) [address] [place] [address] VIR CBC auto differentialon 04-26 Basophils (Bld) [#/Vol] 0.1 10*3/uL 0.0 - 0.2 10*3/uL [facility] Basophils/100 WBC (Bld) 0.5 % [facility] Differential cell count method Nom (Bld) AUTOMATED DIFFERENTIAL [facility] Eosinophils (Bld) [#/Vol] 0 10*3/uL 0. 0 - 0.4 10*3/uL [facility] Eosinophils/100 WBC (Bld) 0.4 % [facility] Erythrocyte distribution width (RBC) [Ratio] 14.3 % 11.5 - 15 % [facility] Hematocrit (Bld) [Volume fraction] 30.7 % Low 35 - 47 % [facility] Hemoglobin (Bld) [Mass/Vol] 10.2 g/dL Low 11.7 - 15.5 g/dL [facility] Interpretation and review of laboratory results Abnormal [facility] Lymphocytes (Bld) [#/Vol] 0.9 10*3/uL Low 1. 0 - 3.5 10*3/uL [facility] Lymphocytes/100 WBC (Bld) 8.6 % [facility] MCH (RBC) [Entitic mass] 30.5 pg 27 - 34 pg [facility] MCHC (RBC) [Mass/Vol] 33.3 g/dL 32 - 3 6 g/dL [facility] MCV (RBC) [Entitic vol] 92 fL 80 - 100 fL [facility] Monocytes (Bld) [#/Vol] 0.7 10*3/uL 0.0 - 0.9 10*3/uL [facility] Monocytes/100 WBC (Bld) 6.4 % P [facility] Neutrophils (Bld) [#/Vol] 9.1 10*3/uL High 1. 5 - 6.6 10*3/uL [facility] Neutrophils/100 WBC (Bld) 84.1 % [facility] Platelet mean volume (Bld) [Entitic vol] 10.4 fL 7 - 12 fL [facility] Platelets (Bld) [#/Vol] 109 10*3/uL Low [facility] RBC (Bld) [#/Vol] 3.35 10*6/uL Low [facility] WBC LM Ql (Sput) 10.8 [facility] CK TOTALon 05-18-2025 CPK 1468 U/L High 24-170 [facility] Comment on above: Performed By: #### C BCA #### [facility] ([facility]) [address] [place] [address] VIR CK Totalon 05-18-2025 CK [Catalytic activity/Vol] 1468 U/L High 24 - 170 U/L [facility] Interpretation and review of laboratory results Abnormal [facility] MYOGLOBIN, SERUMon 5 SERUM MYOGLOBIN 216.6 ng/mL High 14.3-65.8 [facility] Comment on above: Performed By: #### F IBR #### [facility] ([facility]) [address] [place] [address] VIR Myoglobin, serumon 5 Interpretation and review of laboratory results Abnormal [facility] Myoglobin [Mass/Vol] 216.6 ng/mL High 14.3 - 65.8 ng/mL [facility] BASIC METABOLIC PANELon 04-26 Anion gap [Moles/Vol] 8 mmol/L Normal 5-15 [facility] Comment on above: Performed By: #### D POLK #### [facility] ([facility]) [address] [place] [address] VIR Calcium [Mass/Vol] 8.0 mg/dL Low 8.5-10.5 [facility] Comment on above: Performed By: #### D POLK #### [facility] ([facility]) [address] [place] [address] VIR Chloride [Moles/Vol] 111 mmol/L High 98-109 [facility] Comment on above: Performed By: #### D POLK #### [facility] ([facility]) [address] [place] [address] VIR CO2 [Moles/Vol] 23 mmol/L Normal 22-32 [facility] Comment on above: Performed By: #### D POLK #### [facility] ([facility]) [address] [place] [address] VIR Creatinine [Mass/Vol] 0.67 mg/dL Normal 0.40-1.00 [facility] Comment on above: Result Comment: METH OD TRACEABLE TO IDMS STANDARD Performed By: #### D POLK #### [facility] ([facility]) [address] [place] [address] VIR GFR/1.73 sq M.predicted among non-blacks MDRD (S/P/Bld) [Vol rate/Area] 85 mL/min/{1.73_m2} Normal >=60 [facility] Comment on above: Result Comment: Repo rted eGFR is based on the CKD-EPI 2020 equation that does not use a race coefficient. EGFR not calculated due to patient's gender not being defined. Performed By: #### D POLK #### [facility] ([facility]) [address] [place] [address] VIR Glucose [Mass/Vol] 146 mg/dL High 65-99 [facility] Comment on above: Performed By: #### D POLK #### [facility] ([facility]) [address] [place] [address] VIR Potassium [Moles/Vol] 4.0 mmol/L Normal 3.5-5.0 [facility] Comment on above: Performed By: #### D POLK #### [facility] ([facility]) [address] [place] [address] VIR Sodium [Moles/Vol] 142 mmol/L Normal 134-146 [facility] Comment on above: Performed By: #### D POLK #### [facility] ([facility]) [address] [place] [address] VIR Urea nitrogen [Mass/Vol] 14 mg/dL Normal 5-27 [facility] Comment on above: Performed By: #### D POLK #### [facility] - [facility] ([facility]) [address] [place] [address] VIR BEDSIDE GLUCOSEon 05-17-2025 Glucose [Mass/Vol] 200 mg/dL High 65-99 [facility] Comment on above: Performed By: #### D POLK #### [facility] ([facility]) [address] [place] [address] VIR Bacteria identified Cx Nom ( U)on 05-17-2025 Bacteria identified Aer cx Nom (Unsp spec) <10,000 ORGANISMS/mL NORMAL URO GENITAL TAIWO [facility] Basic Metabolic Panelon 04-26 Anion gap [Moles/Vol] 8 mmol/L 5 - 15 mmol/L [facility] Calcium [Mass/Vol] 8 mg/dL Low 8.5 - 10. 5 mg/dL [facility] Chloride [Moles/Vol] 111 mmol/L High 98 - 10 9 mmol/L [facility] CO2 [Moles/Vol] 23 mmol/L 22 - 32 mmol/L [facility] Creatinine [Mass/Vol] 0.67 mg/dL 0.40 - 1.00 mg/dL [facility] Comment on above: METHOD TRACEABLE TO IDMS STANDARD EGFR Non-Race Dependent 85 - PINF P [facility] Comment on above: Reported eGFR is bas ed on the CKD-EPI 2020 equation that does not use a race coefficient. EGFR not calculated due to patient's gender not being defined. Glucose [Mass/Vol] 146 mg/dL High 65 - 99 mg/dL [facility] Interpretation and review of laboratory results Abnormal [facility] Potassium [Moles/Vol] 4 mmol/L 3.5 - 5.0 mmol/L [facility] Sodium [Moles/Vol] 142 mmol/L 134 - 146 mmol/L [facility] Urea nitrogen [Mass/Vol] 14 mg/dL 5 - 27 mg/dL [facility] Bedside Glucose *Place/Obtai n serum glucose if >500 per glucometer.on 05-17-2025 Glucose [Mass/Vol] 200 mg/dL High 65 - 99 mg/dL [facility] Interpretation and review of laboratory results Abnormal [facility] CBC WITH AUTO DIFFERENTIALon 05-17-2025 BASOPHILS ABSOLUTE COUNT (10*3/UL) BY AUTOMATED COUNT 0.0 10*3/uL Normal 0.0-0.2 [facility] Comment on above: Performed By: #### C BCA #### [facility] ([facility]) [address] [place] [address] VIR BASOPHILS RELATIVE PERCENT BY AUTOMATED COUNT 0.2 % Normal [facility] Comment on above: Performed By: #### C BCA #### [facility] ([facility]) [address] [place] [address] VIR CELLAVISION DIFFERENTIAL TYPE AUTOMATED DIFFERENTIAL Normal [facility] Comment on above: Performed By: #### C BCA #### [facility] ([facility]) [address] [place] [address] VIR Eosinophils (Bld) [#/Vol] 0.0 10*3/uL Normal 0.0-0.4 [facility] Comment on above: Performed By: #### C BCA #### [facility] ([facility]) [address] [place] [address] VIR EOSINOPHILS RELATIVE PERCENT BY AUTOMATED COUNT 0.0 % Normal [facility] Comment on above: Performed By: #### C BCA #### [facility] ([facility]) [address] [place] [address] VIR Erythrocyte distribution width (RBC) [Ratio] 14.5 % Normal 11.5-15 [facility] Comment on above: Performed By: #### C BCA #### [facility] ([facility]) [address] [place] [address] VIR Hematocrit (Bld) [Volume fraction] 33.3 % Low 35-47 [facility] Comment on above: Performed By: #### C BCA #### [facility] ([facility]) [address] [place] [address] VIR Hemoglobin (Bld) [Mass/Vol] 11.1 g/dL Low 11.7-15. 5 [facility] Comment on above: Performed By: #### C BCA #### [facility] ([facility]) [address] [place] [address] VIR LYMPHOCYTES ABSOLUTE COUNT (10*3/UL) BY AUTOMATED COUNT 0.9 10*3/uL Low 1.0-3.5 [facility] Comment on above: Performed By: #### C BCA #### [facility] ([facility]) [address] [place] [address] VIR LYMPHOCYTES RELATIVE PERCENT BY AUTOMATED COUNT 6.1 % Normal [facility] Comment on above: Performed By: #### C BCA #### [facility] ([facility]) [address] [place] [address] VIR MCH (RBC) [Entitic mass] 30.2 pg Normal 27-34 [facility] Comment on above: Performed By: #### C BCA #### [facility] ([facility]) [address] [place] [address] VIR MCHC (RBC) [Mass/Vol] 33.2 g/dL Normal 32-36 [facility] Comment on above: Performed By: #### C BCA #### [facility] ([facility]) [address] [place] [address] VIR MCV (RBC) [Entitic vol] 91 fL Normal 80-100 P [facility] Comment on above: Performed By: #### C BCA #### [facility] ([facility]) [address] [place] [address] VIR MONOCYTES ABSOLUTE COUNT (10*3/UL) BY AUTOMATED COUNT 0.9 10*3/uL Normal 0.0-0.9 [facility] Comment on above: Performed By: #### C BCA #### [facility] ([facility]) [address] [place] [address] VIR MONOCYTES RELATIVE PERCENT BY AUTOMATED COUNT 6.3 % Normal [facility] Comment on above: Performed By: #### C BCA #### [facility] ([facility]) [address] [place] [address] VIR NEUTROPHILS ABSOLUTE COUNT BY AUTOMATED COUNT 12.6 10*3/uL High 1.5-6.6 [facility] Comment on above: Performed By: #### C BCA #### [facility] ([facility]) [address] [place] [address] VIR NEUTROPHILS RELATIVE PERCENT BY AUTOMATED COUNT 87.4 % Normal [facility] Comment on above: Performed By: #### C BCA #### [facility] ([facility]) [address] [place] [address] VIR Platelet mean volume (Bld) [Entitic vol] 9.6 fL Normal 7-12 [facility] Comment on above: Performed By: #### C BCA #### [facility] ([facility]) [address] [place] [address] VIR Platelets (Bld) [#/Vol] 135 10*3/uL Low 150-450 [facility] Comment on above: Performed By: #### C BCA #### [facility] ([facility]) [address] [place] [address] VIR RBC COUNT 3.66 X10E12/L Low 3.8-5.2 [facility] Comment on above: Performed By: #### C BCA #### [facility] ([facility]) [address] [place] [address] VIR WBC (Bld) [#/Vol] 14.4 10*3/uL High 4-11 [facility] Comment on above: Performed By: #### C GAIL #### [facility] ([facility]) [address] [place] [address] VIR CBC auto differentialon 04-26 Basophils (Bld) [#/Vol] 0 10*3/uL 0.0 - 0.2 10*3/uL [facility] Basophils/100 WBC (Bld) 0.2 % P [facility] Differential cell count method Nom (Bld) AUTOMATED DIFFERENTIAL [facility] Eosinophils (Bld) [#/Vol] 0 10*3/uL 0. 0 - 0.4 10*3/uL [facility] Eosinophils/100 WBC (Bld) 0 % [facility] Erythrocyte distribution width (RBC) [Ratio] 14.5 % 11.5 - 15 % [facility] Hematocrit (Bld) [Volume fraction] 33.3 % Low 35 - 47 % [facility] Hemoglobin (Bld) [Mass/Vol] 11.1 g/dL Low 11.7 - 15.5 g/dL [facility] Interpretation and review of laboratory results Abnormal [facility] Lymphocytes (Bld) [#/Vol] 0.9 10*3/uL Low 1. 0 - 3.5 10*3/uL [facility] Lymphocytes/100 WBC (Bld) 6.1 % [facility] MCH (RBC) [Entitic mass] 30.2 pg 27 - 34 pg [facility] MCHC (RBC) [Mass/Vol] 33.2 g/dL 32 - 3 6 g/dL [facility] MCV (RBC) [Entitic vol] 91 fL 80 - 100 fL [facility] Monocytes (Bld) [#/Vol] 0.9 10*3/uL 0.0 - 0.9 10*3/uL [facility] Monocytes/100 WBC (Bld) 6.3 % P [facility] Neutrophils (Bld) [#/Vol] 12.6 10*3/uL High 1. 5 - 6.6 10*3/uL [facility] Neutrophils/100 WBC (Bld) 87.4 % [facility] Platelet mean volume (Bld) [Entitic vol] 9.6 fL 7 - 12 fL [facility] Platelets (Bld) [#/Vol] 135 10*3/uL Low [facility] RBC (Bld) [#/Vol] 3.66 10*6/uL Low [facility] WBC LM Ql (Sput) 14.4 High [facility] CK TOTALon 05-17-2025 CPK 1976 U/L High 24-170 [facility] Comment on above: Performed By: #### C BCA #### [facility] [address] [place] [address] VIR CK Totalon 05-17-2025 CK [Catalytic activity/Vol] 1976 U/L High 24 - 170 U/L [facility] CK [Catalytic activity/Vol] 1293 U/L High 24 - 170 U/L [facility] CT BRAIN WO CONTon CT BRAIN WO CONT CT BRAIN WO CONT History: SDH, SAH Exam/Technique: CT images of [...] Pako Estevez MD on 05/17/2025 1:54 AM [facility] CT Head WO contraston 2024 History: SDH, SAH Exam/Technique: CT images of [...] Pako Estevez MD on 05/17/2025 1:54 AM [facility] Pako Estevez MD - 05/17/2025 History: SDH, [...] Pako Estevez MD on 05/17/2025 1:54 AM [facility] Radiology Study observation (narrative) [facility] CT Head WO contrastOrdered B y: Pako Estevez on 05-17-2025 [facility] Work Phone: Michelle Top On Iceon 05-17-2025 Extra Tube Auto Resulted [facility] IONIZED MAGNESIUMon 05-17-20 25 Magnesium [Moles/Vol] 0.78 mmol/L High 0.45-0.74 [facility] Comment on above: Performed By: #### C BCA #### [facility] ([facility]) [address] [place] [address] VIR Ionized magnesiumon 05-17-20 25 Interpretation and review of laboratory results Abnormal [facility] Magnesium Ionized ISE (Bld) [Moles/Vol] 0.78 mmol/L High 0.45 - 0.74 mmol/L [facility] Lactate w/ Reflexon 05-17-20 25 Interpretation and review of laboratory results Normal [facility] Lactate (P cirilo) [Moles/Vol] 2 mmol/L 0.4 - 2.0 mmol/L [facility] Result did not trigger repeat Lactate, re-order if needed. [facility] MYOGLOBIN, SERUMon 5 SERUM MYOGLOBIN 967.7 ng/mL High 14.3-65.8 [facility] Comment on above: Performed By: #### C BCA #### [facility] ([facility]) [address] [place] [address] VIR Magnesiumon 05-17-2025 Magnesium [Mass/Vol] 1.7 mg/dL Low 1.8 - 2 .6 mg/dL [facility] Myoglobin, serumon 5 Myoglobin [Mass/Vol] 967.7 ng/mL High 14.3 - 65.8 ng/mL [facility] Myoglobin [Mass/Vol] 1106.1 ng/mL High 14.3 - 65.8 ng/mL [facility] No Panel Informationon 05-17 Interpretation and review of laboratory results Abnormal [facility] Interpretation and review of laboratory results Abnormal [facility] Phosphoruson 05-17-2025 Interpretation and review of laboratory results Normal [facility] Phosphate [Mass/Vol] 2.8 mg/dL 2.4 - 4 .9 mg/dL [facility] ABO Rh Repeaton 05-16-2025 ABO and Rh group Nom (Bld) O [facility] ABO and Rh group Nom (Bld) Positive [facility] AMYLASEon 05-16-2025 Amylase [Catalytic activity/Vol] 54 U/L Normal 28-100 [facility] Comment on above: Performed By: #### A MYL #### [facility] ([facility]) [address] [place] [address] VIR APTTon 05-16-2025 aPTT Coag (PPP) [Time] 24 s Low Pr [facility] Interpretation and review of laboratory results Abnormal [facility] aPTT Coag (Bld) [Time] 24 s Low 26-37 Pr [facility] Comment on above: Performed By: #### P TT #### [facility] ([facility]) [address] [place] [address] VIR Amylaseon 05-16-2025 Amylase (S/P/Bld) [Catalytic activity/Vol] 54 U/L 28 - 100 U/L [facility] BLOOD CULTUREon 05-16-2025 Bacteria identified Cx Nom (Bld) CULTURE RESULTS NO GROWTH 5 DAYS Normal [facility] Comment on above: Order Comment: *SIRS Criteria: (must display 2 without other explanation)-Temperature < 36 or >38-Pulse >90-Resp rate >20-WBC less than 4K or greater than 12KRepeat blood cultures not needed:-To document that a blood culture is a contaminant when 1 of 2 bottles is positive for a common contaminant (already listed in Epic with the culture result)-To document clearance of gram negative bacteremia in patients with suspected urinary source who are improvingSuboptimal volume of blood collected, Results may be affected. Performed By: #### C BCA #### [facility] ([facility]) [address] [place] [address] VIR CBC WITH AUTO DIFFERENTIALon 05-16-2025 BASOPHILS ABSOLUTE COUNT (10*3/UL) BY AUTOMATED COUNT 0.0 10*3/uL Normal 0.0-0.2 [facility] Comment on above: Performed By: #### C BCA #### [facility] ([facility]) [address] [place] [address] VIR BASOPHILS RELATIVE PERCENT BY AUTOMATED COUNT 0.2 % Normal [facility] Comment on above: Performed By: #### C BCA #### [facility] ([facility]) [address] [place] [address] VIR CELLAVISION DIFFERENTIAL TYPE AUTOMATED DIFFERENTIAL Normal [facility] Comment on above: Performed By: #### C BCA #### [facility] ([facility]) [address] [place] [address] VIR Eosinophils (Bld) [#/Vol] 0.0 10*3/uL Normal 0.0-0.4 [facility] Comment on above: Performed By: #### C BCA #### [facility] ([facility]) [address] [place] [address] VIR EOSINOPHILS RELATIVE PERCENT BY AUTOMATED COUNT 0.0 % Normal [facility] Comment on above: Performed By: #### C BCA #### [facility] ([facility]) [address] [place] [address] VIR Erythrocyte distribution width (RBC) [Ratio] 14.3 % Normal 11.5-15 [facility] Comment on above: Performed By: #### C BCA #### [facility] ([facility]) [address] [place] [address] VIR Hematocrit (Bld) [Volume fraction] 37.2 % Normal 35-47 [facility] Comment on above: Performed By: #### C BCA #### [facility] ([facility]) [address] [place] [address] VIR Hemoglobin (Bld) [Mass/Vol] 12.4 g/dL Normal 11.7-15. 5 [facility] Comment on above: Performed By: #### C BCA #### [facility] ([facility]) [address] [place] [address] VIR LYMPHOCYTES ABSOLUTE COUNT (10*3/UL) BY AUTOMATED COUNT 0.5 10*3/uL Low 1.0-3.5 [facility] Comment on above: Performed By: #### C BCA #### [facility] ([facility]) [address] [place] [address] VIR LYMPHOCYTES RELATIVE PERCENT BY AUTOMATED COUNT 3.3 % Normal [facility] Comment on above: Performed By: #### C BCA #### [facility] ([facility]) [address] [place] [address] VIR MCH (RBC) [Entitic mass] 30.5 pg Normal 27-34 [facility] Comment on above: Performed By: #### C BCA #### [facility] ([facility]) [address] [place] [address] VIR MCHC (RBC) [Mass/Vol] 33.4 g/dL Normal 32-36 [facility] Comment on above: Performed By: #### C BCA #### [facility] ([facility]) [address] [place] [address] VIR MCV (RBC) [Entitic vol] 91 fL Normal 80-100 [facility] Comment on above: Performed By: #### C BCA #### [facility] ([facility]) [address] [place] [address] VIR MONOCYTES ABSOLUTE COUNT (10*3/UL) BY AUTOMATED COUNT 0.9 10*3/uL Normal 0.0-0.9 [facility] Comment on above: Performed By: #### C BCA #### [facility] ([facility]) [address] [place] [address] VIR MONOCYTES RELATIVE PERCENT BY AUTOMATED COUNT 5.2 % Normal [facility] Comment on above: Performed By: #### C BCA #### [facility] ([facility]) [address] [place] [address] VIR NEUTROPHILS ABSOLUTE COUNT BY AUTOMATED COUNT 14.9 10*3/uL High 1.5-6.6 [facility] Comment on above: Performed By: #### C BCA #### [facility] ([facility]) [address] [place] [address] VIR NEUTROPHILS RELATIVE PERCENT BY AUTOMATED COUNT 91.3 % Normal [facility] Comment on above: Performed By: #### C BCA #### [facility] ([facility]) [address] [place] [address] VIR Platelet mean volume (Bld) [Entitic vol] 9.8 fL Normal 7-12 [facility] Comment on above: Performed By: #### C BCA #### [facility] ([facility]) [address] [place] [address] VIR Platelets (Bld) [#/Vol] 155 10*3/uL Normal 150-450 [facility] Comment on above: Performed By: #### C BCA #### [facility] ([facility]) [address] [place] [address] VIR RBC COUNT 4.08 X10E12/L Normal 3.8-5.2 [facility] Comment on above: Performed By: #### C BCA #### [facility] ([facility]) [address] [place] [address] VIR WBC (Bld) [#/Vol] 16.3 10*3/uL High 4-11 [facility] Comment on above: Performed By: #### C GAIL #### [facility] ([facility]) [address] [place] [address] VIR CBC auto differentialon 04-26 Basophils (Bld) [#/Vol] 0 10*3/uL 0.0 - 0.2 10*3/uL [facility] Basophils/100 WBC (Bld) 0.2 % P [facility] Differential cell count method Nom (Bld) AUTOMATED DIFFERENTIAL [facility] Eosinophils (Bld) [#/Vol] 0 10*3/uL 0. 0 - 0.4 10*3/uL [facility] Eosinophils/100 WBC (Bld) 0 % [facility] Erythrocyte distribution width (RBC) [Ratio] 14.3 % 11.5 - 15 % [facility] Hematocrit (Bld) [Volume fraction] 37.2 % 35 - 47 % [facility] Hemoglobin (Bld) [Mass/Vol] 12.4 g/dL 11.7 - 15.5 g/dL [facility] Interpretation and review of laboratory results Abnormal [facility] Lymphocytes (Bld) [#/Vol] 0.5 10*3/uL Low 1. 0 - 3.5 10*3/uL [facility] Lymphocytes/100 WBC (Bld) 3.3 % [facility] MCH (RBC) [Entitic mass] 30.5 pg 27 - 34 pg [facility] MCHC (RBC) [Mass/Vol] 33.4 g/dL 32 - 3 6 g/dL [facility] MCV (RBC) [Entitic vol] 91 fL 80 - 100 fL [facility] Monocytes (Bld) [#/Vol] 0.9 10*3/uL 0.0 - 0.9 10*3/uL [facility] Monocytes/100 WBC (Bld) 5.2 % P [facility] Neutrophils (Bld) [#/Vol] 14.9 10*3/uL High 1. 5 - 6.6 10*3/uL [facility] Neutrophils/100 WBC (Bld) 91.3 % [facility] Platelet mean volume (Bld) [Entitic vol] 9.8 fL 7 - 12 fL [facility] Platelets (Bld) [#/Vol] 155 10*3/uL [facility] RBC (Bld) [#/Vol] 4.08 10*6/uL [facility] dica [facility] WBC LM Ql (Sput) 16.[address] [facility] CK TOTALon 05-16-2025 CPK 1293 U/L High 24-170 [facility] Comment on above: Performed By: #### D POLK #### [facility] ([facility]) [address] [place] [address] VIR COMPREHENSIVE METABOLIC PANE [place] 05-16-2025 Albumin [Mass/Vol] 3.6 g/dL Normal 3.2-5.3 [facility] Comment on above: Performed By: #### C MP #### [facility] ([facility]) [address] [place] [address] VIR ALP [Catalytic activity/Vol] 102 U/L Normal 39-130 [facility] Comment on above: Performed By: #### C MP #### [facility] ([facility]) [address] [place] [address] VIR ALT [Catalytic activity/Vol] 11 U/L Normal <=31 [facility] Comment on above: Performed By: #### C MP #### [facility] [facility] [address] [place] [address] VIR Anion gap [Moles/Vol] 11 mmol/L Normal 5-15 [facility] Comment on above: Performed By: #### C MP #### [facility] ([facility]) [address] [place] [address] VIR AST [Catalytic activity/Vol] 32 U/L Normal <=41 [facility] Comment on above: Performed By: #### C MP #### [facility] ([facility]) [address] [place] [address] VIR Bilirubin [Mass/Vol] 0.4 mg/dL Normal 0.3-1.2 [facility] Comment on above: Performed By: #### C MP #### [facility] ([facility]) [address] [place] [address] VIR Calcium [Mass/Vol] 8.4 mg/dL Low 8.5-10.5 [facility] Comment on above: Performed By: #### C MP #### [facility] ([facility]) [address] [place] [address] VIR Chloride [Moles/Vol] 107 mmol/L Normal 98-109 [facility] Comment on above: Performed By: #### C MP #### [facility] ([facility]) [address] [place] [address] VIR CO2 [Moles/Vol] 23 mmol/L Normal 22-32 [facility] Comment on above: Performed By: #### C MP #### [facility] ([facility]) [address] [place] [address] VIR Creatinine [Mass/Vol] 0.65 mg/dL Normal 0.40-1.00 [facility] Comment on above: Result Comment: METH OD TRACEABLE TO IDMS STANDARD Performed By: #### C MP #### [facility] ([facility]) [address] [place] [address] VIR GFR/1.73 sq M.predicted among non-blacks MDRD (S/P/Bld) [Vol rate/Area] 85 mL/min/{1.73_m2} Normal >=60 [facility] Comment on above: Result Comment: Repo rted eGFR is based on the CKD-EPI 2020 equation that does not use a race coefficient. EGFR not calculated due to patient's gender not being defined. Performed By: #### C MP #### [facility] ([facility]) [address] [place] [address] VIR Glucose [Mass/Vol] 158 mg/dL High 65-99 [facility] Comment on above: Performed By: #### C MP #### [facility] ([facility]) [address] [place] [address] VIR Potassium [Moles/Vol] 3.8 mmol/L Normal 3.5-5.0 [facility] Comment on above: Performed By: #### C MP #### [facility] ([facility]) [address] [place] [address] VIR Protein [Mass/Vol] 6.1 g/dL Normal 6.0-8.0 [facility] Comment on above: Performed By: #### C MP #### [facility] ([facility]) [address] [place] [address] VIR Sodium [Moles/Vol] 141 mmol/L Normal 134-146 [facility] Comment on above: Performed By: #### C MP #### [facility] ([facility]) [address] [place] [address] VIR Urea nitrogen [Mass/Vol] 15 mg/dL Normal 5-27 [facility] Comment on above: Performed By: #### C MP #### [facility] ([facility]) [address] [place] [address] VIR Comprehensive metabolic pane milan 05-16-2025 Albumin [Mass/Vol] 3.6 g/dL 3.2 - 5.3 g/dL [facility] ALP [Catalytic activity/Vol] 102 U/L 39 - 130 U/L [facility] ALT No additional P-5'-P [Catalytic activity/Vol] 11 U/L NINF - 31 U/L [facility] Anion gap [Moles/Vol] 11 mmol/L 5 - 15 mmol/L [facility] AST [Catalytic activity/Vol] 32 U/L NINF - 41 U/L [facility] Bilirubin [Mass/Vol] 0.4 mg/dL 0.3 - 1 .2 mg/dL [facility] Calcium [Mass/Vol] 8.4 mg/dL Low 8.5 - 10. 5 mg/dL [facility] Chloride [Moles/Vol] 107 mmol/L 98 - 10 9 mmol/L [facility] CO2 [Moles/Vol] 23 mmol/L 22 - 32 mmol/L [facility] Creatinine [Mass/Vol] 0.65 mg/dL 0.40 - 1.00 mg/dL [facility] Comment on above: METHOD TRACEABLE TO IDMS STANDARD EGFR Non-Race Dependent 85 - PINF P [facility] Comment on above: Reported eGFR is bas ed on the CKD-EPI 2020 equation that does not use a race coefficient. EGFR not calculated due to patient's gender not being defined. Glucose [Mass/Vol] 158 mg/dL High 65 - 99 mg/dL [facility] Potassium [Moles/Vol] 3.8 mmol/L 3.5 - 5.0 mmol/L [facility] Protein [Mass/Vol] 6.1 g/dL 6.0 - 8.0 g/dL [facility] Sodium [Moles/Vol] 141 mmol/L 134 - 146 mmol/L [facility] Urea nitrogen [Mass/Vol] 15 mg/dL 5 - 27 mg/dL [facility] DRUG SCREEN, URINEon 025 AMPHETAMINE/METHAMP Negative Normal Negative [facility] Comment on above: Result Comment: AMPH /METH screening cut off = 1000 ng/mL Performed By: #### D POLK #### [facility] ([facility]) [address] [place] [address] VIR BARBITURATES Negative Normal Negative [facility] Comment on above: Result Comment: Isabelle iturates screening cut off value = 200 ng/mL Performed By: #### D POLK #### [facility] ([facility]) [address] [place] [address] VIR BENZODIAZEPINES Negative Normal Negative [facility] Comment on above: Result Comment: Dwayne odiazepines screening cut off value = 200 ng/mL Performed By: #### D POLK #### [facility] ([facility]) [address] [place] [address] VIR CANNABINOIDS Negative Normal Negative [facility] Comment on above: Result Comment: Dewayne abinoids/THC screening cut off value = 50 ng/mL Performed By: #### D POLK #### [facility] ([facility]) [address] [place] [address] VIR COCAINE METABOLITE Negative Normal Negative [facility] Comment on above: Result Comment: Coca ine screening cut off value = 300 ng/mL Performed By: #### D POLK #### [facility] ([facility]) [address] [place] [address] VIR ECSTASY Negative Normal Negative [facility] Comment on above: Result Comment: Ecst asy screening cut off value = 500 ng/mL Performed By: #### D POLK #### [facility] ([facility]) [address] [place] [address] VIR METHADONE Negative Normal Negative [facility] Comment on above: Result Comment: Meth adone screening cut off value = 300 ng/mL. Performed By: #### D POLK #### [facility] ([facility]) [address] [place] [address] VIR OPIATES Negative Normal Negative [facility] Comment on above: Result Comment: Opia jameel screening cut off value = 300 ng/mL This test is used for the detection of codeine, hydrocodone (>1000 ng/mL), morphine and hydromorphone (>900 ng/mL) in urine. Performed By: #### D POLK #### [facility] ([facility]) [address] [place] [address] VIR OXYCODONE Negative Normal Negative [facility] Comment on above: Result Comment: Oxyc odone screening cut off value = 300 ng/mL This test is used for the detection of oxycodone and oxymorphone in urine. Performed By: #### D POLK #### [facility] ([facility]) [address] [place] [address] VIR PHENCYCLIDINE Negative Normal Negative [facility] Comment on above: Result Comment: Phen cyclidine screening cut off value = 25 ng/mL Performed By: #### D POLK #### [facility] ([facility]) [address] [place] [address] VIR Drug Screen, Urineon 025 Amphetamines Screen method >1000 ng/mL Ql (U) Negative Negative [facility] Comment on above: AMPH/METH screening cut off = 1000 ng/mL Barbiturates Screen Ql (U) Negative Negative [facility] Comment on above: Barbiturates screeni ng cut off value = 200 ng/mL Benzodiazepines Ql (U) Negative Negative [facility] Comment on above: Benzodiazepines scre ening cut off value = 200 ng/mL Cocaine Ql (U) Negative Negative [facility] Comment on above: Cocaine screening cu t off value = 300 ng/mL Interpretation and review of laboratory results Normal [facility] Methadone (Mec) [Mass/Mass] Negative Negative [facility] Comment on above: Methadone screening cut off value = 300 ng/mL. Methylenedioxymethamphetami ne Screen Ql (U) Negative Negative [facility] Comment on above: Ecstasy screening cu t off value = 500 ng/mL Opiates Ql (U) Negative Negative [facility] Comment on above: Opiates screening cu t off value = 300 ng/mL This test is used for the detection of codeine, hydrocodone (>1000 ng/mL), morphine and hydromorphone (>900 ng/mL) in urine. oxyCODONE [Mass/Vol] Negative Negative [facility] Comment on above: Oxycodone screening cut off value = 300 ng/mL This test is used for the detection of oxycodone and oxymorphone in urine. Phencyclidine Screen method >25 ng/mL Ql (U) Negative Negative [facility] Comment on above: Phencyclidine screen ing cut off value = 25 ng/mL Tetrahydrocannabinol Screen method >50 ng/mL Ql (U) Negative Negative [facility] Comment on above: Cannabinoids/THC scr eening cut off value = 50 ng/mL [facility] ETHANOLon 05-16-2025 Ethanol [Mass/Vol] mg/dL Normal <=0.080 [facility] Comment on above: Result Comment: This report is intended for use in clinical monitoring or management of patients. Performed By: #### A LCO #### [facility] ([facility]) [address] [place] [address] VIR Ethanolon 05-16-2025 Ethanol Ql (U) g/dL NINF - 0.080 g/dL [facility] Comment on above: This report is inten ded for use in clinical monitoring or management of patients. FIBRINOGENon 05-16-2025 FIBRINOGEN 358 mg/dL Normal 190-480 [facility] Comment on above: Performed By: #### F IBR #### [facility] ([facility]) [address] [place] [address] VIR Fibrinogenon 05-16-2025 Fibrinogen Coagulation.derived (PPP) [Mass/Vol] 358 mg/dL 190 - 480 mg/dL [facility] LACTATE W/ REFLEXon 05-16-20 25 LACTATE W/REFLEX 2.0 mmol/L Normal 0.4-2.0 [facility] Comment on above: Order Comment: Resul t did not trigger repeat Lactate,re-order if needed. Performed By: #### D POLK #### [facility] ([facility]) [address] [place] [address] VIR LIPASEon 05-16-2025 Lipase [Catalytic activity/Vol] U/L Low 11-82 [facility] Comment on above: Performed By: #### L IPA #### [facility] ([facility]) [address] [place] [address] VIR Lipaseon 05-16-2025 Lipase [Catalytic activity/Vol] U/L Low 11 - 82 U/L [facility] MAGNESIUMon 05-16-2025 Magnesium [Mass/Vol] 1.7 mg/dL Low 1.8-2.6 [facility] Comment on above: Performed By: #### D POLK #### [facility] ([facility]) [address] [place] [address] VIR MYOGLOBIN, SERUMon SERUM MYOGLOBIN 1106.1 ng/mL High 14.3-65.8 [facility] Comment on above: Performed By: #### D POLK #### [facility] ([facility]) [address] [place] [address] VIR No Panel Informationon 05-16 Interpretation and review of laboratory results Normal [facility] Interpretation and review of laboratory results Abnormal [facility] Interpretation and review of laboratory results Normal [facility] PHOSPHORUSon 05-16-2025 Phosphate [Mass/Vol] 2.8 mg/dL Normal 2.4-4.9 [facility] Comment on above: Performed By: #### D POLK #### [facility] ([facility]) [address] [place] [address] VIR PROTIME AND INRon 05-16-2025 INR 1.0 Normal 0.9-1.2 [facility] Comment on above: Performed By: #### P INR #### [facility] ([facility]) [address] [place] [address] VIR PT Coag (PPP) [Time] 11.4 s Normal 9.8-13.2 [facility] Comment on above: Performed By: #### P INR #### [facility] ([facility]) [address] [place] [address] VIR Protime & INRon 05-16-2025 INR Coag (Platelet poor plasma or blood) [Relative time] 1 0.9 - 1.2 [facility] PT Coag (PPP) [Time] 11.4 s [facility] REPEATED ABORHon 05-16-2025 ABO_INTEP O Normal [facility] Comment on above: Performed By: #### D POLK #### [facility] ([facility]) [address] [place] [address] VIR RH_INTEP Positive Normal [facility] Comment on above: Performed By: #### D POLK #### [facility] ([facility]) [address] [place] [address] VIR TYPE AND SCREENon 05-16-2025 ABO_INTEP O Normal [facility] Comment on above: Performed By: #### D POLK #### [facility] ([facility]) [address] [place] [address] VIR RH_INTEP Positive Normal [facility] Comment on above: Performed By: #### D POLK #### [facility] ([facility]) [address] [place] [address] VIR Type and screen(includes ind irect ellyn)on 05-16-2025 ABO and Rh group Nom (Bld) O [facility] ABO and Rh group Nom (Bld) Positive [facility] Blood group antibody screen.cells I+II+III Ql Negative [facility] URINALYSISon 05-16-2025 Bilirubin Ql (U) Negative Normal Negative [facility] Comment on above: Performed By: #### U A #### [facility] ([facility]) [address] [place] [address] VIR BLOOD/HGB Moderate Abnormal Negative [facility] Comment on above: Performed By: #### U A #### [facility] ([facility]) [address] [place] [address] VIR Color (U) Yellow Normal Yellow [facility] Comment on above: Performed By: #### U A #### [facility] ([facility]) [address] [place] [address] VIR Glucose Ql (U) Negative Normal Negative [facility] Comment on above: Performed By: #### U A #### [facility] ([facility]) [address] [place] [address] VIR Ketones Ql (U) 40 mg/dL Abnormal Negative [facility] Comment on above: Performed By: #### U A #### [facility] ([facility]) [address] [place] [address] VIR Leukocyte esterase Test strip Ql (U) Negative Normal Negative [facility] Comment on above: Performed By: #### U A #### [facility] ([facility]) [address] [place] [address] VIR MUCOUS Present Abnormal None [facility] Comment on above: Performed By: #### U A #### [facility] ([facility]) [address] [place] [address] VIR Nitrite Ql (U) Negative Normal Negative [facility] Comment on above: Performed By: #### U A #### [facility] ([facility]) [address] [place] [address] VIR PH,URINE 6.0 Normal 5.0-8.5 [facility] Comment on above: Performed By: #### U A #### [facility] ([facility]) [address] [place] [address] VIR Protein Ql (U) 30 mg/dL Abnormal Negative [facility] Comment on above: Performed By: #### U A #### [facility] ([facility]) [address] [place] [address] VIR R.B.CELLS 6 High 0-5 [facility] Comment on above: Performed By: #### U A #### [facility] ([facility]) [address] [place] [address] VIR Specific gravity (U) [Rel density] 1.010 Normal 1.003-1.03 5 [facility] Comment on above: Performed By: #### U A #### [facility] ([facility]) [address] [place] [address] VIR SQUAMOUS EPITHELIUM <^1 Normal 0-5 [facility] Comment on above: Performed By: #### U A #### [facility] ([facility]) [address] [place] [address] VIR TURBIDITY Clear Normal Clear [facility] Comment on above: Performed By: #### U A #### [facility] ([facility]) [address] [place] [address] VIR UROBILINOGEN <1.1 eu/dL Normal <1.1 eu/dL [facility] Comment on above: Performed By: #### U A #### [facility] ([facility]) [address] [place] [address] VIR W.B.CELLS 3 Normal 0-5 [facility] Comment on above: Performed By: #### U A #### [facility] ([facility]) [address] [place] [address] VIR URINE CULTUREon 05-16-2025 Bacteria identified Cx Nom (U) CULTURE RESULTS <10,000 ORGANISMS/mL NORMAL URO GENITAL TAIWO Normal [facility] Comment on above: Performed By: #### C BCA #### [facility] ([facility]) [address] [place] [address] VIR UrinalysisOrdered By: Olga Fraga on 05-16-2025 Bilirubin Ql (U) Negative Negative [facility] Color (U) Yellow Yellow [facility] Epithelial cells Auto (Urine sed) [#/Area] 0 - 5 [facility] Glucose (U) [Mass/Vol] Negative Negative [facility] Hemoglobin Auto test strip Ql (U) Moderate Abnormal Negative [facility] Interpretation and review of laboratory results Abnormal [facility] Ketones (U) [Mass/Vol] 40 mg/dL Abnormal Negative [facility] Leukocyte esterase Auto test strip Ql (U) Negative Negative [facility] Mucus Ql (Urine sed) Present Abnormal None [facility] Nitrite Auto test strip Ql (U) Negative Negative [facility] pH (U) 6 [pH] 5.0 - 8.5 [facility] Protein (U) [Mass/Vol] 30 mg/dL Abnormal Negative [facility] RBC Auto (Urine sed) [#/Area] 6 High 0 - 5 [facility] Specific gravity Refractometry automated (U) [Rel density] 1.01 1.003 - 1.035 [facility] Turbidity Ql (U) Clear Clear [facility] Urobilinogen Qn (U) {Allison'U}/dL <1.1 eu/dL P [facility] WBC Auto (Urine sed) [#/Area] 3 0 - 5 [facility] Urine Cultureon 05-16-2025 Bacteria identified Cx Nom (U) ORGANISM: Klebsiella variicola (O:KLEVAR) Jones Count >100,000 Aerobic ROYAL Charge (NMIC56) ----- SUSCEPTIBILITY ---- ORGANISM: O:KLEVAR ANTIBIOTIC INTERPRETATION ROYAL Amikacin S <16 Amoxacillin/K Clavulanate S <8 Ampicillin/Sulbactam S <4 Aztreonam S <4 Cefazolin S <2 Cefepime S <2 Ceftazidime S <1 Ceftriaxone S <1 Cefuroxime S <4 Ciprofloxacin S <0.25 Ertapenem S <0.5 Gentamicin S <2 Levofloxacin S <0.5 Meropenem S <1 Nitrofurantoin S <32 Piperacillin/Tazobac lópez S <8 Tetracycline S <4 Tigecycline S <2 Tobramycin S <2 Trimethoprim/Sulfame thoxazole S <0.5 S = SUSCEPTIBLE I = INTERMEDIATE R = RESISTANT BLANK = DATA NOT AVAILABLE, OR DRUG NOT ADVISABLE OR TESTED R* = RESISTANCE DUE TO EXTENDED SPECTRUM BETA-LACTAMASES ESBL = EXTENDED SPECTRUM BETA-LACTAMASE TFG = THYMIDINE-DEPENDENT STRAIN MIRYAM = BETA-LACTAMASE POSITIVE IB = INDUCIBLE BETA-LACTAMASE. APPEARS IN PLACE OF 'S' WITH SPECIES KNOWN TO POSSESS INDUCIBLE BETA-LACTAMASES. POTENTIALLY THEY MAY BECOME RESISTANT TO ALL B-LACTAM DRUGS. PERFORMED BY: [address] [address] PATHOLOGIST TOOL POLISHING MACHINE OPERATOR RAVEN GARCIA M.D. Normal [facility] Comment on above: Performed By: #### C UU #### [facility] [address] MM TOMOSYNTHESIS SCREENING B Ion 03-19-2025 [place] [address] Mammography Report Signed Patient: MEI GUARDADO MR#: [id number] : 1940 Acct:[id number] Age/Sex: 85 / F ADM Date: 03/19/25 Loc: MAMMO Attending Dr: OCHOA MEDINA Ordering Physician: OCHOA MEDINA Results: Date of Service: 03/19/25 Follow Up: Procedure(s): MM tomosynthesis screening BI Accession Number(s): [id number] cc: ADAMREGINAZAK Patient Name: MEI GUARDADO MR#: [id number] : 1940 Exam Date: 03/19/2025 Ordering Doctor: DR OCHOA MEDINA M.D. RADIOLOGY REPORT PROCEDURE: MM TOMOSYNTHESIS [...] radiation therapy Family Cancers None LOCATION: [facility] BREAST COMPOSITION: There are scattered areas of [...] LUMP SHOULD BE BIOPSIED. Dictated by: Royce Hugehs DO on 03/19/2025 at 15:35 Approved by: Royce Hughes DO on 03/19/2025 at 15:38 Dictated By: Royce Hughes M.D. Signed By: 03/19/25 1539 DD/ 1538 TD/TT: [employer] Driver: [facility] Radiology, Radiologist, MD - 03/19/2025 [place] [address] Mammography Report Signed Patient: MEI GUARDADO MR#: [id number] : 1940 Acct:[id number] Age/Sex: 85 / F ADM Date: 03/19/25 Loc: MAMMO Attending Dr: OCHOA MEDINA Ordering Physician: OCHOA MEDINA Results: Date of Service: 03/19/25 Follow Up: Procedure(s): MM tomosynthesis screening BI Accession Number(s): [id number] cc: OCHOA MEDINA Patient Name: MEI GUARDADO MR#: [id number] : 1940 Exam Date: 03/19/2025 Ordering Doctor: DR OCHOA MEDINA M.D. RADIOLOGY REPORT PROCEDURE: MM TOMOSYNTHESIS [...] radiation therapy Family Cancers None LOCATION: [facility] BREAST COMPOSITION: There are scattered areas of [...] By: Royce Hughes M.D. Signed By: 03/19/25 153 DD/ 153 TD/TT: [employer] Driver: [facility] Radiology Study observation (narrative) [facility] MM TOMOSYNTHESIS SCREENING B IOrdered By: Radiologist Radiology on 03-19-2025 [facility] Work Phone: No Panel Informationon 11-18 [facility] CBC (INCLUDES DIFF/PLT)on Basophils (Bld) [#/Vol] 0.013 10*3/uL Normal 0-200 [facility] Comment on above: Performed By: #### 1 0231, 6399 #### [facility] [address] [place], [place] [id number] Protection Consultant: Caroline Garcia #### 7600 #### [facility] [address], [address] [place] [address] Protection Consultant: Ricardo Garcia MD Basophils/100 WBC (Bld) 0.2 % Normal [facility] Comment on above: Performed By: #### 1 0231, 6399 #### [facility] Protection Consultant: Caroline Garcia #### 7600 #### [facility] [place] [address] Protection Consultant: Ricardo Garcia MD Eosinophils (Bld) [#/Vol] 0.04 10*3/uL Normal 15-500 [facility] Comment on above: Performed By: #### 1 0231, 6399 #### [facility] [address] [place], [place] [id number] Protection Consultant: Caroline Garcia #### 7600 #### [facility] [place] [address] Protection Consultant: Ricardo Garcia MD Eosinophils/100 WBC (Bld) 0.6 % Normal [facility] Comment on above: Performed By: #### 1 0231, 6399 #### [facility] [address] [place], [place] [id number] Protection Consultant: Caroline Garcia #### 7600 #### [facility] [address], [address] [place] [address] Protection Consultant: Ricardo Garcia MD Erythrocyte distribution width (RBC) [Ratio] 14.2 % Normal 11.0-15.0 [facility] Comment on above: Performed By: #### 1 0231, 6399 #### [facility] [address] [place], [place] [id number] Protection Consultant: Caroline Garcia #### 7600 #### [facility] [address], [address] [place] [address] Protection Consultant: Ricardo Garcia MD Hematocrit (Bld) [Volume fraction] 38.8 % Normal 35.0-45.0 [facility] Comment on above: Performed By: #### 1 230, 6399 #### [facility] [address] [place] [address] Protection Consultant: Caroline Garcia #### 7600 #### [facility] [address], [address] [place] [address] Protection Consultant: Ricardo Garcia MD Hemoglobin (Bld) [Mass/Vol] 12.6 g/dL Normal 11.7-15. 5 [facility] Comment on above: Performed By: #### 1 230, 6399 #### [facility] [address] [place], [place] [id number] Protection Consultant: Caroline Garcia #### 7600 #### [facility] [address] , [address] [place] [address] Protection Consultant: Ricardo Garcia MD Lymphocytes (Bld) [#/Vol] 0.878 10*3/uL Normal 850-390 0 [facility] Comment on above: Performed By: #### 1 0231, 6399 #### [facility] [address] [place], [place] [id number] Protection Consultant: Caroline Garcia #### 7600 #### [facility] [address], [address] [place] [address] Protection Consultant: Ricardo Garcia MD Lymphocytes/100 WBC (Bld) 13.1 % Normal [facility] Comment on above: Performed By: #### 1 230, 6399 #### [facility] Protection Consultant: Caroline Garcia #### 7600 #### [facility] [address], [address] [place] [address] Protection Consultant: Ricardo Garcia MD MCH (RBC) [Entitic mass] 29.5 pg Normal 27.0-33.0 [facility] Comment on above: Performed By: #### 1 230, 6399 #### [facility] Protection Consultant: Caroline Garcia #### 7600 #### [facility] [address], [address] [place] [address] Protection Consultant: Ricardo Garcia MD MCHC (RBC) [Mass/Vol] 32.5 g/dL Normal 32.0-36.[address] [facility] Comment on above: Result Comment: For adults, a slight decrease in the calculated MCHC value (in the range of 30 to 32 g/dL) is most likely not clinically significant; however, it should be interpreted with caution in correlation with other red cell parameters and the patient's clinical condition. Performed By: #### 1 230, 6399 #### [facility] [address] [place] [id number] Protection Consultant: Caroline Garcia #### 7600 #### [facility] [address], [address] [place], [place] [id number] Protection Consultant: Ricardo Garcia MD MCV (RBC) [Entitic vol] 90.9 fL Normal 80.0-100.0 [facility] Comment on above: Performed By: #### 1 230, 6399 #### [facility] [address] [place], [place] [id number] Protection Consultant: Caroline Garcia #### 7600 #### [facility] [address], [address] [place] [address] Protection Consultant: Ricardo Garcia MD Monocytes (Bld) [#/Vol] 0.382 10*3/uL Normal 200-950 [facility] Comment on above: Performed By: #### 1 230, 6399 #### [facility] [address] [place] [address] Protection Consultant: Caroline Garcia #### 7600 #### [facility] [address], [address] [place] [address] Protection Consultant: Ricardo Garcia MD Monocytes/100 WBC (Bld) 5.7 % Normal [facility] Comment on above: Performed By: #### 1 230, 63 #### [facility] [address] [place] [address] Protection Consultant: Caroline Garcia #### 7600 #### [facility] [address], [address] [place] [address] Protection Consultant: Ricardo Garcia MD Neutrophils (Bld) [#/Vol] 5.387 10*3/uL Normal 1500-78 00 [facility] Comment on above: Performed By: #### 1 230, 6399 #### [facility] [address] [place] [address] Protection Consultant: Caroline Garcia #### 7600 #### [facility] [address], [address] [place] [address] Protection Consultant: Ricardo Garcia MD Neutrophils/100 WBC (Bld) 80.4 % Normal [facility] Comment on above: Performed By: #### 1 023, 6399 #### [facility] [address] [place], [place] [id number] Protection Consultant: Caroline Garcia #### 7600 #### [facility] [place] [address] [place] , [address] [place] [address] Protection Consultant: Ricardo Garcia MD Platelet mean volume (Bld) [Entitic vol] 10.6 fL Normal 7.5-12.5 [facility] Comment on above: Performed By: #### 1 0231, 6399 #### [place] [address] Protection Consultant: Caroline Garcia #### 7600 #### [facility] [address], [address] [place] [address] Protection Consultant: Ricardo Garcia MD Platelets (Bld) [#/Vol] 240 10*3/uL Normal 140-400 [facility] Comment on above: Performed By: #### 1 0231, 6399 #### [place] [address] Protection Consultant: Caroline Garcia #### 7600 #### [facility] [address], [address] [place] [address] Protection Consultant: Ricardo Garcia MD RBC (Bld) [#/Vol] 4.27 10*6/uL Normal 3.80-5.10 [facility] Comment on above: Performed By: #### 1 0231, 6399 #### [place] [address] Protection Consultant: Caroline Garcia #### 7600 #### [facility] [address], [address] [place] [address] Protection Consultant: Ricardo Garcia MD WBC (Bld) [#/Vol] 6.7 10*3/uL Normal 3.8-10.8 [facility] Comment on above: Performed By: #### 1 0231, 6399 #### [facility] [address] [place] [address] Protection Consultant: Caroline Garcia #### 7600 #### [facility] [address], [address] [place] [address] Protection Consultant: Ricardo Garcia MD [facility] METABOL[facility] 09-14-2024 Albumin [Mass/Vol] 3.6 g/dL Normal 3.6-5.1 [facility] Comment on above: Performed By: #### 1 0231, 6399 #### [facility] [address] [place] [address] Protection Consultant: Caroline Garcia #### 7600 #### [facility] [address], [address] [place] [address] Protection Consultant: Ricardo Garcia MD Albumin/Globulin [Mass ratio] 1.5 {ratio} Normal 1.0-2.5 [facility] Comment on above: Performed By: #### 1 0231, 6399 #### [facility] [address] Protection Consultant: Caroline Garcia #### 7600 #### [facility] [address], [address] [place] [address] Protection Consultant: Ricardo Garcia MD ALP [Catalytic activity/Vol] 107 U/L Normal 37-153 [facility] Comment on above: Performed By: #### 1 0231, 6399 #### [facility] [address] [place] [address] Protection Consultant: Caroline Garcia #### 7600 #### [facility] [address], [address] [place] [address] Protection Consultant: Ricardo Garcia MD ALT [Catalytic activity/Vol] 12 U/L Normal 6-29 [facility] Comment on above: Performed By: #### 1 0231, 6399 #### [facility] [address] [place] [address] Protection Consultant: Caroline Garcia #### 7600 #### [facility] [address], [address] [place] [address] Protection Consultant: Ricardo Garcia MD AST [Catalytic activity/Vol] 16 U/L Normal 10-35 [facility] Comment on above: Performed By: #### 1 230, 6399 #### [facility] [address] [place], [place] [id number] Protection Consultant: Caroline Garcia #### 7600 #### [facility] [address], [address] [place] [address] Protection Consultant: Ricardo Garcia MD Bilirubin [Mass/Vol] 0.4 mg/dL Normal 0.2-1.2 [facility] Comment on above: Performed By: #### 1 230, 6399 #### [facility] [address] [place], [place] [id number] Protection Consultant: Caroline Garcia #### 7600 #### [facility] [address], [address] [place] [address] Protection Consultant: Ricardo Garcia MD BUN/CREATININE RATIO SEE NOTE: Normal 6-22 [facility] Comment on above: Result Comment: Not Reported: BUN and Creatinine are within reference range. Performed By: #### 1 230, 6399 #### [facility] [address] Protection Consultant: Caroline Garcia #### 7600 #### [facility] [address], [address] [place] [address] Protection Consultant: Ricardo Garcia MD Calcium [Mass/Vol] 8.7 mg/dL Normal 8.6-10.4 [facility] Comment on above: Performed By: #### 1 023, 6399 #### [facility] [address] [place], [place] [id number] Protection Consultant: Caroline Garcia #### 7600 #### [facility] [address], [address] [place] [address] Protection Consultant: Ricardo Garcia MD Chloride [Moles/Vol] 109 mmol/L Normal 98-110 [facility] Comment on above: Performed By: #### 1 023, 6399 #### [facility] [address] [place], [place] [id number] Protection Consultant: Caroline Garcia #### 7600 #### [facility] [address], [address] [place] [address] Protection Consultant: Ricardo Garcia MD CO2 [Moles/Vol] 28 mmol/L Normal 20-32 [facility] Comment on above: Performed By: #### 1 230, 6399 #### [facility] [address] [place] [address] Protection Consultant: Caroline Garcia #### 7600 #### [facility] [address], [address] [place] [address] Protection Consultant: Ricardo Garcia MD Creatinine [Mass/Vol] 0.62 mg/dL Normal 0.60-0.[address] [facility] Comment on above: Performed By: #### 1 230, 6386 #### [facility] [address] [place] [address] Protection Consultant: Caroline Garcia #### 7600 #### [facility] [address], [address] [place] [address] Protection Consultant: Ricardo Garcia MD GFR/1.73 sq M.predicted among non-blacks MDRD (S/P/Bld) [Vol rate/Area] 87 mL/min/{1.73_m2} Normal > OR = 60 [facility] Comment on above: Performed By: #### 1 230, 6399 #### [facility] [address] [place], [place] [id number] Protection Consultant: Caroline Garcia #### 7600 #### [facility] [address], [address] [place] [address] Protection Consultant: Ricardo Garcia MD Globulin (S) [Mass/Vol] 2.4 g/dL Normal 1.9-3.7 [facility] Comment on above: Performed By: #### 1 230, 63 #### [facility] [address] [place], [place] [id number] Protection Consultant: Caroline Garcia #### 7600 #### [facility] [address], [address] [place] [address] Protection Consultant: Ricardo Garcia MD Glucose [Mass/Vol] 96 mg/dL Normal 65-99 [facility] Comment on above: Result Comment: Fasting reference interval Performed By: #### 1 0231, 6399 #### [facility] [address] [place] [address] Protection Consultant: Caroline Garcia #### 7600 #### [facility] [address], [address] [place] [address] Protection Consultant: Ricardo Garcia MD Potassium [Moles/Vol] 3.9 mmol/L Normal 3.5-5.[address] [facility] [address] [facility] Comment on above: Performed By: #### 1 0231, 6399 #### [facility] [address] [place] [address] Protection Consultant: Caroline Garcia #### 7600 #### [facility] [address], [address] [place] [address] Protection Consultant: Ricardo Garcia MD Protein [Mass/Vol] 6.0 g/dL Low 6.1-8.1 [facility] Comment on above: Performed By: #### 1 0231, 6399 #### [facility] [address] [place] [address] Protection Consultant: Caroline Garcia #### 7600 #### [facility] [address], [address] [place] [address] Protection Consultant: Ricardo Garcia MD Sodium [Moles/Vol] 143 mmol/L Normal 135-146 [facility] Comment on above: Performed By: #### 1 0231, 6399 #### [facility] [address] [place] [address] Protection Consultant: Caroline Garcia #### 7600 #### [facility] [place] [id number] [place] [address], [address] [place] [address] Protection Consultant: Ricardo Garcia MD Urea nitrogen [Mass/Vol] 16 mg/dL Normal 7-25 [facility] Comment on above: Performed By: #### 1 0231, 6399 #### [facility] [address] [place] [address] Protection Consultant: Caroline Garcia #### 7600 #### [facility] [address], [address] [place] [address] Protection Consultant: Ricardo Garcia MD LIPID PANEL, [address] Cholesterol [Mass/Vol] 276 mg/dL High <200 [facility] Comment on above: Order Comment: FASTI NG:YES FASTING: YES Performed By: #### 1 0231, 6399 #### [facility] [address] Protection Consultant: Caroline Garcia #### 7600 #### [facility] [address], [address] [place] [address] Protection Consultant: Ricardo Garcia MD Cholesterol in HDL [Mass/Vol] 82 mg/dL Normal > OR = 50 [facility] Comment on above: Order Comment: FASTI NG:YES FASTING: YES Performed By: #### 1 0231, 6399 #### [facility] [facility] [address] Protection Consultant: Caroline Garcia #### 7600 #### [facility] [address], [address] [place] [address] Protection Consultant: Ricardo Garcia MD Cholesterol in LDL [Mass/Vol] 171 mg/dL High [facility] Comment on above: Order Comment: FASTI NG:YES FASTING: YES Result Comment: Refe rence range: <100 Desirable range <100 mg/dL for primary prevention; <70 mg/dL for patients with CHD or diabetic patients with > or = 2 CHD risk factors. LDL-C is now calculated using the Cameron-Ta calculation, which is a validated novel method providing better accuracy than the Friedewald equation in the estimation of LDL-C. Cameron REYNOLDS et al. SOL. 2013;310(19): 2798-5988 (http://education.[employer]/faq/HYY347) Performed By: #### 1 0231, 6399 #### [facility] [address] [place] [address] Protection Consultant: Caroline Garcia #### 7600 #### [facility] [address], [address] [place] [address] Protection Consultant: Ricardo Garcia MD Cholesterol.total/Cholester ol in HDL [Mass ratio] 3.4 {ratio} Normal <5.0 [facility] Comment on above: Order Comment: FASTI NG:YES FASTING: YES Performed By: #### 1 023, 6399 #### [facility] [facility] [address] Protection Consultant: Caroline Garcia #### 7600 #### [facility] [address], [address] [place] [address] Protection Consultant: Ricardo Garcia MD NON HDL CHOLESTEROL 194 mg/dL (calc) High <130 [facility] Comment on above: Order Comment: FASTI NG:YES FASTING: YES Result Comment: For patients with diabetes plus 1 major ASCVD risk factor, treating to a non-HDL-C goal of <100 mg/dL (LDL-C of <70 mg/dL) is considered a therapeutic option. Performed By: #### 1 023, 6399 #### [facility] [address] [place] [address] Protection Consultant: Caroline Garcia #### 7600 #### [facility] [address], [address] [place] [address] Protection Consultant: Ricardo Garcia MD Triglyceride [Mass/Vol] 108 mg/dL Normal <150 [facility] Comment on above: Order Comment: FASTI NG:YES FASTING: YES Performed By: #### 1 023, 6399 #### [facility] [address] [place] [address] Protection Consultant: Caroline Garcia #### 7600 #### [facility] [address], [address] [place], [place] [address] Protection Consultant: Ricardo Garcia MD VITAMIN D,25-[place],TOTAL,IAon 1 11-15-2023 [...] D, (D2,D3), LC/MS/MS is recommended: order code 93407 (patients >2yrs). See Note 1 Note 1 For additional information, please refer to http://education.[employer]/faq/QTX133 (This link is being provided for informational/ educational purposes only.) Performed By: #### 1 0231, 6399 #### [facility] [address] Protection Consultant: Caroline Garcia #### 7600 #### [facility] [address], [address] [place], [place] [address] Protection Consultant: Ricardo Garcia MD XR RIBS 2 VIEWS [...] signed and approved by the interpreting radiologist. [facility] Radiology Study observation (narrative) [facility] XR Ribs Views and Chest PAOr dered By: Mikey Nguyen on 09-06-2024 [facility] [employer] Work Phone: MG M[facility]M SCREEN 3D NIC CADon 03-16-2022 [facility] M[facility] SCREEN 3D NIC CAD Patient: MEI GUARDADO Exam Date: 03/16/2022 : 1940 Gender:F Ordering : DR OCHOA MEDINA M.D. Admission #: [id number] Family : Order #: [id number] CLICK HERE TO VIEW EXAM RADIOLOGY REPORT [...] radiation therapy Family Cancers None LOCATION: [facility] BREAST COMPOSITION: Scattered areas fibroglandular density. FINDINGS: [...] PALPABLE LUMP SHOULD BE BIOPSIED. Dictated by: Brisa Flores M.D. on 03/16/2022 at 11:39 Approved by: Brisa Flores M.D. on 03/16/2022 at 11:42 Normal [facility] RESPIRATORY PANEL PLUSon Adenovirus Not detected Normal NOT DETECTED [facility] Comment on above: Performed By: #### R SPLUS #### [facility] [address] [place] [address] [address] Khurram Malone Parapertusis Not detected Normal NOT DETECTED [facility] Comment on above: Performed By: #### R SPLUS #### [facility] [address] [place] [address] [address] Khurram Malone Pertussis Not detected Normal NOT DETECTED [facility] Comment on above: Performed By: #### R SPLUS #### [facility] [address] [place] [address] [address] Khurram Montiel Chlamydia Pneumoniae Not detected Normal NOT DETECTED [facility] Comment on above: Performed By: #### R SPLUS #### [facility] [address] [place] [address] Dr. Khurram Montiel Coronavirus 229E Not detected Normal NOT DETECTED [facility] Comment on above: Performed By: #### R SPLUS #### [facility] [address] [place] [address] Dr. Khurram Montiel Coronavirus HKU1 Not detected Normal NOT DETECTED [facility] Comment on above: Performed By: #### R SPLUS #### [facility] [address] [place] [address] Dr. Khurram Montiel Coronavirus NL63 Not detected Normal NOT DETECTED [facility] Comment on above: Performed By: #### R SPLUS #### [facility] [address] [place] [address] Dr. Khurram Montiel Coronavirus OC43 Not detected Normal NOT DETECTED [facility] Comment on above: Performed By: #### R SPLUS #### [facility] [address] [place] [address] Dr. Khurram Montiel Influenza A H1 2009 Not detected Normal NOT DETECTED [facility] Comment on above: Performed By: #### R SPLUS #### [facility] [address] [place] [address] Dr. Khurram Montiel Influenza A H3 Not detected Normal NOT DETECTED [facility] Comment on above: Performed By: #### R SPLUS #### [facility] [address] [place] [address] Dr. Khurram Montiel Influenza B Not detected Normal NOT DETECTED [facility] Comment on above: Performed By: #### R SPLUS #### [facility] [address] [place] [address] Dr. Khurram Montiel Metapneumovirus Not detected Normal NOT DETECTED [facility] Comment on above: Performed By: #### R SPLUS #### [facility] [address] [place] [address] Dr. Khurram Montiel Mycoplas. Pneumoniae Not detected Normal NOT DETECTED [facility] Comment on above: Performed By: #### R SPLUS #### [facility] [address] [place] [address] Dr. Khurram Montiel Parainfluenza 1 Not detected Normal NOT DETECTED [facility] Comment on above: Performed By: #### R SPLUS #### [facility] [address] [place] [address] Dr. Khurram Montiel Parainfluenza 2 Not detected Normal NOT DETECTED [facility] Comment on above: Performed By: #### R SPLUS #### [facility] [address] [place] [address] Dr. Khurram Montiel Parainfluenza 3 Not detected Normal NOT DETECTED [facility] Comment on above: Performed By: #### R SPLUS #### [facility] [address] [place] [address] Dr. Khurram Montiel Parainfluenza 4 Not detected Normal NOT DETECTED [facility] Comment on above: Performed By: #### R SPLUS #### [facility] [address] [place] [address] Dr. Khurram Montiel Rhino/Enterovirus Not detected Normal NOT DETECTED [facility] Comment on above: Performed By: #### R SPLUS #### [facility] [address] [place] [address] Dr. Khurram Montiel RP2 Header 1 RESPIRATORY PANEL: VIRUSES Normal [facility] Comment on above: Performed By: #### R SPLUS #### [facility] [address] [place] [address] Dr. Khurram Montiel RP2 Header 2 RESPIRATORY PANEL: BACTERIA Normal [facility] Comment on above: Performed By: #### R SPLUS #### [facility] [address] [place] [address] Dr. Khurram Montiel RSV Not detected Normal NOT DETECTED [facility] Comment on above: Performed By: #### R SPLUS #### [facility] [address] [place] [address] Dr. Khurram Montiel SARS-CoV-2 (COVID-19) RNA OKSANA+probe Ql (Unsp spec) Not detected Normal NOT DETECTED [facility] Comment on above: Performed By: #### R SPLUS #### [facility] [address] [place] [address] Dr. Khurram Montiel COVID Quick Testingon 2020 Result Negative [employer] Other XR DEXA BONE DENSITYon 06-15 XR DEXA BONE DENSITY EXAMINATION: XR DEX A BONE DENSITY, 06/15/2021 7:54 AM EDT HISTORY: [...] by: MOISES BAH Date: 2021-06-15 08:27 Normal [facility] Vital Signs Date Time Vital Sign Value Performing Clinician Facility 05-20-2025 13:44-0400 Diastolic blood pressure 68 mm[Hg] Wilfredo Moreau MD Work Phone: [facility] 05-20-2025 13:44-0400 Heart rate 86 /min Wilfredo Moreau MD Work Phone: [facility] 05-20-2025 13:44-0400 Respiratory rate 25 /min Wilfredo Moreau MD Work Phone: [facility] 05-20-2025 13:44-0400 SaO2% (BldA) [Mass fraction] 94 % Wilfredo Moreau MD Work Phone: [facility] 05-20-2025 13:44-0400 Systolic blood pressure 154 mm[Hg] Wilfredo Moreau MD Work Phone: [facility] 05-20-2025 07:16-0400 Body temperature 97.9 [degF] Wilfredo Moreau MD Work Phone: [facility] 05-19-2025 01:00-0400 Body mass index (BMI) [Ratio] 27.15 kg/m2 Wilfredo Moreau MD Work Phone: [facility] 05-19-2025 01:00-0400 Body weight 76.3 kg Wilfredo Moreau MD Work Phone: [facility] 05-17-2025 01:20-0400 Body height 167.6 cm Wilfredo Moreau MD Work Phone: [facility] 03-18-2025 08:36-0400 Diastolic blood pressure 70 mm[Hg] Tonia Hemmer PA Work Phone: [facility] 03-18-2025 08:36-0400 Systolic blood pressure 128 mm[Hg] Tonia Hemmer PA Work Phone: [facility] 03-18-2025 08:23-0400 Body height 166.4 cm Tonia Hemmer PA Work Phone: [facility] 03-18-2025 08:23-0400 Body mass index (BMI) [Ratio] 24.58 kg/m2 Tonia Hemmer PA Work Phone: [facility] 03-18-2025 08:23-0400 Body weight 68.04 kg Tonia Hemmer PA Work Phone: [facility] 03-18-2025 08:23-0400 Heart rate 60 /min Tonia Hemmer PA Work Phone: [facility] 03-18-2025 08:23-0400 SaO2% (BldA) [Mass fraction] 97 % Tonia Hemmer PA Work Phone: [facility] 01-06-2025 09:37-0400 Body height 166.4 cm Tonia Hemmer PA Work Phone: [facility] 01-06-2025 09:37-0400 Body mass index (BMI) [Ratio] 25.24 kg/m2 Tonia Hemmer PA Work Phone: [facility] 01-06-2025 09:37-0400 Body temperature 97.7 [degF] Tonia Hemmer PA Work Phone: [facility] 01-06-2025 09:37-0400 Body weight 69.85 kg Tonia Hemmer PA Work Phone: [facility] 01-06-2025 09:37-0400 Diastolic blood pressure 64 mm[Hg] Tonia Hemmer PA Work Phone: [facility] 01-06-2025 09:37-0400 Heart rate 64 /min Tonia Hemmer PA Work Phone: [facility] 01-06-2025 09:37-0400 Respiratory rate 16 /min Tonia Hemmer PA Work Phone: [facility] 01-06-2025 09:37-0400 SaO2% (BldA) [Mass fraction] 99 % Tonia Hemmer PA Work Phone: [facility] 01-06-2025 09:37-0400 Systolic blood pressure 122 mm[Hg] Tonia Hemmer PA Work Phone: [facility] 09-12-2024 13:07-0500 Body height 166.4 cm Tonia Hemmer PA Work Phone: [facility] 09-12-2024 13:07-0500 Body mass index (BMI) [Ratio] 25.07 kg/m2 Tonia Hemmer PA Work Phone: [facility] 09-12-2024 13:07-0500 Body weight 69.4 kg Tonia Hemmer PA Work Phone: [facility] 09-12-2024 13:07-0500 Diastolic blood pressure 72 mm[Hg] Tonia Hemmer PA Work Phone: [facility] 09-12-2024 13:07-0500 Heart rate 55 /min Tonia Hemmer PA Work Phone: [facility] 09-12-2024 13:07-0500 SaO2% (BldA) [Mass fraction] 98 % Tonia Hemmer PA Work Phone: [facility] 09-12-2024 13:07-0500 Systolic blood pressure 108 mm[Hg] Tonia Hemmer PA Work Phone: [facility] 09-09-2024 09:47-0500 Body mass index (BMI) [Ratio] 24.75 kg/m2 Tonia Hemmer PA Work Phone: [facility] 09-09-2024 09:47-0500 Body weight 68.49 kg Tonia Hemmer PA Work Phone: [facility] 09-09-2024 09:47-0500 Diastolic blood pressure 70 mm[Hg] Tonia Hemmer PA Work Phone: [facility] 09-09-2024 09:47-0500 Heart rate 55 /min Tonia Hemmer PA Work Phone: [facility] 09-09-2024 09:47-0500 Respiratory rate 17 /min Tonia Hemmer PA Work Phone: [facility] 09-09-2024 09:47-0500 SaO2% (BldA) [Mass fraction] 99 % Tonia Hemmer PA Work Phone: [facility] 09-09-2024 09:47-0500 Systolic blood pressure 100 mm[Hg] Tonia Hemmer PA Work Phone: [facility] 09-06-2024 09:03-0500 Body mass index (BMI) [Ratio] 25.4 kg/m2 Dhara Rodriguez COMMUNITY RELATIONS DIRECTOR Work Phone: [facility] 09-06-2024 09:03-0500 Body temperature 97.81 [degF] Dhara Rodriguez COMMUNITY RELATIONS DIRECTOR Work Phone: [facility] 09-06-2024 09:03-0500 Body weight 70.31 kg Dhara Rodriguez COMMUNITY RELATIONS DIRECTOR Work Phone: [facility] 09-06-2024 09:03-0500 Diastolic blood pressure 68 mm[Hg] Dhara Rodriguez COMMUNITY RELATIONS DIRECTOR Work Phone: [facility] 09-06-2024 09:03-0500 Heart rate 78 /min Dhara Rodriguez COMMUNITY RELATIONS DIRECTOR Work Phone: [facility] 09-06-2024 09:03-0500 SaO2% (BldA) [Mass fraction] 98 % Dhara Rodriguez COMMUNITY RELATIONS DIRECTOR Work Phone: [address]2024 09:03-0500 Systolic blood pressure 114 mm[Hg] Dhara Rodriguez COMMUNITY RELATIONS DIRECTOR Work Phone: [facility] 09-04-2024 13:38-0500 Body height 166.4 cm Neena Love COMMUNITY RELATIONS DIRECTOR Work Phone: [facility] 09-04-2024 13:38-0500 Body mass index (BMI) [Ratio] 24.97 kg/m2 Neena Love COMMUNITY RELATIONS DIRECTOR Work Phone: [facility] 09-04-2024 13:38-0500 Body weight 69.13 kg Neena Love COMMUNITY RELATIONS DIRECTOR Work Phone: [facility] 09-04-2024 13:38-0500 Diastolic blood pressure 77 mm[Hg] Neena Love COMMUNITY RELATIONS DIRECTOR Work Phone: [facility] 09-04-2024 13:38-0500 Heart rate 78 /min Neena Love COMMUNITY RELATIONS DIRECTOR Work Phone: [facility] 09-04-2024 13:38-0500 Respiratory rate 17 /min Neena Love COMMUNITY RELATIONS DIRECTOR Work Phone: [facility] 09-04-2024 13:38-0500 SaO2% (BldA) [Mass fraction] 97 % Neena Love COMMUNITY RELATIONS DIRECTOR Work Phone: [facility] 09-04-2024 13:38-0500 Systolic blood pressure 132 mm[Hg] Neena Love COMMUNITY RELATIONS DIRECTOR Work Phone: [facility] 08-06-2024 09:33-0500 Body mass index (BMI) [Ratio] 25.01 kg/m2 Jazzy Hutchins COMMUNITY RELATIONS DIRECTOR Work Phone: [facility] 08-06-2024 09:33-0500 Body weight 69.22 kg Jazzy Hutchins COMMUNITY RELATIONS DIRECTOR Work Phone: [facility] 08-06-2024 09:33-0500 Diastolic blood pressure 75 mm[Hg] Jazzy Hutchins COMMUNITY RELATIONS DIRECTOR Work Phone: [facility] 08-06-2024 09:33-0500 Heart rate 67 /min Jazzy Hutchins COMMUNITY RELATIONS DIRECTOR Work Phone: [facility] 08-06-2024 09:33-0500 Respiratory rate 16 /min Jazzy Hutchins COMMUNITY RELATIONS DIRECTOR Work Phone: [facility] 08-06-2024 09:33-0500 SaO2% (BldA) [Mass fraction] 97 % Jazzy Hutchins COMMUNITY RELATIONS DIRECTOR Work Phone: [facility] 08-06-2024 09:33-0500 Systolic blood pressure 110 mm[Hg] Jazzy Hutchins COMMUNITY RELATIONS DIRECTOR Work Phone: [facility] 11-07-2023 11:35-0500 Body mass index (BMI) [Ratio] 24.78 kg/m2 Tonia Hemmer PA Work Phone: [facility] 11-07-2023 11:35-0500 Body temperature 97.9 [degF] Tonia Hemmer PA Work Phone: [facility] 11-07-2023 11:35-0500 Body weight 68.58 kg Tonia Hemmer PA Work Phone: [facility] 11-07-2023 11:35-0500 Diastolic blood pressure 72 mm[Hg] Tonia Hemmer PA Work Phone: [facility] 11-07-2023 11:35-0500 Heart rate 59 /min Tonia Hemmer PA Work Phone: [facility] 11-07-2023 11:35-0500 Respiratory rate 16 /min Tonia Hemmer PA Work Phone: [facility] 11-07-2023 11:35-0500 SaO2% (BldA) [Mass fraction] 99 % Tonia Hemmer PA Work Phone: [facility] 11-07-2023 11:35-0500 Systolic blood pressure 112 mm[Hg] Tonia Hemmer PA Work Phone: [facility] 07-15-2021 14:00-0400 Body height 167.64 cm Shannon Dotson Other [employer] Other 07-15-2021 14:00-0400 Body mass index (BMI) [Ratio] 24.21 kg/m2 Shannon Dotson Other [employer] Other 07-15-2021 14:00-0400 Body temperature 97.5 [degF] Shannon Dotson Other [employer] Other 07-15-2021 14:00-0400 Body weight 68.04 kg Shannon Dotson Other [employer] Other 07-15-2021 14:00-0400 Respiratory rate 18 /min Shannon Dotson Other [employer] Other 07-15-2021 14:00-0400 SaO2% (BldA) [Mass fraction] 97 % Shannon Dotson Other [employer] Other Encounters Encounter Date Encounter Type Care Provider Facility Start: 05-16-2025 ambulatory NOT IN SYSTEM [facility] Start: 05-16-2025 End: 05-20-2025 Evaluation and management of inpatient Jd Pires MD Work Phone: [facility] 9 Acute Comment on above: ICH (intracerebral h emorrhage) ([facility]) (Primary Dx) Start: 05-16-2025 End: 05-16-2025 ambulatory [facility] Work Phone: Start: 05-16-2025 End: 05-16-2025 Departed Referred Sage Arzola DO -LAB [facility] Start: 05-16-2025 End: 05-16-2025 Clinisync Result Encounter Generic External Data Provider [facility] Unsolicited Start: 05-16-2025 End: 05-16-2025 Clinisync Result Encounter Generic External Data Provider [facility] External [facility] Unsolicited Start: 03-19-2025 End: 03-19-2025 Clinisync Result Encounter Ochoa Medina MD Work Phone: [facility] Unsolicited Start: 03-19-2025 End: 03-19-2025 Clinisync Result Encounter Ochoa Medina MD Work Phone: [facility] Unsolicited Start: 03-18-2025 End: 03-18-2025 Office outpatient visit 15 minutes Tonia Flores PA Work Phone: [facility] Comment on above: Benign essential hyp ertension (Primary Dx); Acute seasonal allergic rhinitis due to pollen Start: 03-18-2025 End: 03-18-2025 ambulatory TONIA Arzola HEMMER Not Available Start: 01-06-2025 End: 01-06-2025 Bamboo flowsheet Tonia Flores PA Work Phone: [facility] Start: 01-06-2025 End: 01-06-2025 Bamboo flowsheet Tonia Rasmussenmer PA Work Phone: [facility] Start: 01-06-2025 End: 01-06-2025 Office outpatient visit 15 minutes Tonia Ness Gradymer PA Work Phone: [facility] Comment on above: Acute non-recurrent ethmoidal sinusitis (Primary Dx) Start: 01-06-2025 End: 01-06-2025 ambulatory TONIA Arzola HEMMER Not Available Start: 11-18-2024 End: 11-18-2024 Bamboo flowsheet Onofre Robert Merlyn C CONSULTANT-CAPSULE FILLER Work Phone: [facility] Start: 11-18-2024 End: 11-18-2024 Bamboo flowsheet Onofre Robert Felter C CONSULTANT-CAPSULE FILLER Work Phone: [facility] Start: 11-18-2024 End: 11-18-2024 Office outpatient visit 15 minutes Onofre Robert Merlyn C CONSULTANT-CAPSULE FILLER Work Phone: [facility] Comment on above: Seborrheic keratosis ; Actinic keratosis; Melanocytic nevus of trunk; Melanocytic nevus of left upper extremity; Melanocytic nevus of right upper extremity; Neurofibroma; Sebaceous hyperplasia of face; Onycholysis due to Pseudomonas infection Start: 11-18-2024 End: 11-18-2024 ambulatory ONOFRE ZULETA Not Available Start: 09-16-2024 End: 09-16-2024 Telephone encounter Tonia THOMSON Work Phone: [facility] Start: 09-12-2024 End: 09-12-2024 Bamboo flowsheet Tonia THOMSON Work Phone: [facility] Start: 09-12-2024 End: 09-12-2024 Bamboo flowsheet Tonia THOMSON Work Phone: [facility] Start: 09-12-2024 End: 09-12-2024 Patient encounter procedure Tonia THOMSON Work Phone: [facility] Comment on above: Medicare annual [facility], subsequent (Primary Dx); Hypersomnia; Obstructive sleep [...] 09-09-2024 Office outpatient visit 15 minutes Tonia THOMSON Work Phone: [facility] Comment on above: Rib contusion, left, subsequent encounter (Primary Dx) Start: 09-09-2024 End: 09-09-2024 ambulatory TONIA FLORES Not Available Start: 09-06-2024 End: 09-06-2024 Office outpatient visit 25 minutes Dhara Rodriguez COMMUNITY RELATIONS DIRECTOR Work Phone: [facility] Comment on above: Fall, initial encoun ter (Primary Dx); Rib pain on left side Start: 09-06-2024 End: 09-06-2024 ambulatory DHARA RODRIGUEZ Not Available Start: 09-04-2024 End: 09-04-2024 Bamboo flowsheet Neena Love COMMUNITY RELATIONS DIRECTOR Work Phone: [facility] Start: 09-04-2024 End: 09-04-2024 Bamboo flowsheet Neena Love COMMUNITY RELATIONS DIRECTOR Work Phone: [facility] Start: 09-04-2024 End: 09-04-2024 Office outpatient visit 25 minutes Neena Love COMMUNITY RELATIONS DIRECTOR Work Phone: [facility] Comment on above: Acute frontal sinusi tis, recurrence not specified (Primary Dx) Start: 09-04-2024 End: 09-04-2024 ambulatory NEENA LOVE Not Available Start: 08-06-2024 End: 08-06-2024 Bamboo flowsheet Jazzy Hutchins COMMUNITY RELATIONS DIRECTOR Work Phone: [facility] Start: 08-06-2024 End: 08-06-2024 Bamboo flowsheet Jazzy Hutchins COMMUNITY RELATIONS DIRECTOR Work Phone: [facility] Start: 08-06-2024 End: 08-06-2024 Patient encounter procedure Jazzy Hutchins COMMUNITY RELATIONS DIRECTOR Work Phone: [facility] Comment on above: Acute non-recurrent pansinusitis (Primary Dx); Unspecified convulsions (CMS/HCC) Start: 08-06-2024 End: 08-06-2024 ambulatory JAZZY HUTCHINS Not Available Start: 06-17-2024 End: 06-17-2024 Bamboo flowsheet Onofre Zuleta C CONSULTANT-CAPSULE FILLER Work Phone: [facility] Start: 06-17-2024 End: 06-17-2024 Bamboo flowsheet Onofre Becker C CONSULTANT-CAPSULE FILLER Work Phone: [facility] Start: 06-17-2024 End: 06-17-2024 Office outpatient visit 10 minutes Onofre A Felter C CONSULTANT-CAPSULE FILLER Work Phone: [facility] Comment on above: Onycholysis due to P seudomonas infection Start: 06-17-2024 End: 06-17-2024 ambulatory ONOFRE A FELTER Not Available Start: 06-03-2024 End: 06-03-2024 Bamboo flowsheet Onofre A Felter C CONSULTANT-CAPSULE FILLER Work Phone: [facility] Start: 06-03-2024 End: 06-03-2024 Bamboo flowsheet Onofre A Felter C CONSULTANT-CAPSULE FILLER Work Phone: [facility] Start: 06-03-2024 End: 06-03-2024 Office outpatient visit 15 minutes Onofre A Felter C CONSULTANT-CAPSULE FILLER Work Phone: [facility] Comment on above: Onycholysis due to P seudomonas infection Start: 06-03-2024 End: 06-03-2024 ambulatory ONOFRE A FELTER Not Available Start: 05-14-2024 End: 05-14-2024 Bamboo flowsheet Onofre A Felter C CONSULTANT-CAPSULE FILLER Work Phone: [facility] Start: 05-14-2024 End: 05-14-2024 Bamboo flowsheet Onofre A Felter C CONSULTANT-CAPSULE FILLER Work Phone: [facility] Start: 05-14-2024 End: 05-14-2024 Telephone encounter Onofre A Felter C CONSULTANT-CAPSULE FILLER Work Phone: [facility] Start: 05-14-2024 End: 05-14-2024 Office outpatient visit 25 minutes Onofre A Felter C CONSULTANT-CAPSULE FILLER Work Phone: [facility] Comment on above: Onycholysis due to P seudomonas infection (Primary Dx) Start: 05-14-2024 End: 05-14-2024 ambulatory ONOFRE A FELTER Not Available Start: 11-07-2023 Bamboo Explorraheet Tonia THOMSON Work Phone: [facility] Start: 11-07-2023 Bamboo flowsheet Tonia pedro PA Work Phone: [facility] Start: 11-07-2023 End: 11-07-2023 Office outpatient visit 15 minutes Tonia THOMSON Work Phone: [facility] Comment on above: Acute recurrent fron tracy sinusitis (Primary Dx) Start: 03-16-2022 End: 03-17-[address] OCHOA MEDINA Facility:[facility] Start: 03-01-2022 End: 03-01-[address] OCHOA MEDINA Facility:[facility] Start: 07-15-2021 End: 07-15-2021 ambulatory Shannon Dotson Other [employer] Other Start: 07-15-2021 Office outpatient vi sit 15 minutes Shannon Dotson [facility] [place] Start: 06-18-2021 Encounter for genera l adult medical examination without abnormal findings JAZZY HUTCHINS [facility] Start: 06-15-2021 End: 06-16-[address] OCHOA MEDINA Facility:[facility] Start: 06-15-2021 End: 06-16-2021 Encounter for general adult medical examination without abnormal findings DR OCHOA MEDINA Facility:[facility] Procedures Date Procedure Procedure Detail Performing Clinician Start: 05-20-2025 EXTRA TUBES Wilfredo stapleton MD Work Phone: Start: 05-20-2025 EXTRA TUBES LAVENDER TOP Wilfredo Moreau MD Work Phone: Start: 05-20-2025 Basic metabolic pane l calcium total Bashar R Kahook C CONSULTANT-CAPSULE FILLER Work Phone: Start: 05-19-2025 Potassium serum plasma/whole blood Bashar R Kahook C CONSULTANT-CAPSULE FILLER Work Phone: Start: 05-19-2025 Basic metabolic pane l calcium total Bashar R Kahook C CONSULTANT-CAPSULE FILLER Work Phone: Start: 05-18-2025 Basic metabolic pane l calcium total Bashar R Kahook C CONSULTANT-CAPSULE FILLER Work Phone: Start: 05-17-2025 Creatine kinase total S fatoumata Tilley PANadya Work Phone: Start: 05-17-2025 Blood count complete auto&auto difrntl wbc Mary Lowe C CONSULTANT-CAPSULE FILLER Work Phone: Start: 05-17-2025 Basic metabolic pane l calcium total Mary Lowe C CONSULTANT-CAPSULE FILLER Work Phone: Start: 05-17-2025 BEDSIDE GLUCOSE Wilfredo Moreau MD Work Phone: Start: 05-17-2025 Ct head/brain w/o co ntrast material Mary Lowe C CONSULTANT-CAPSULE FILLER Work Phone: Start: 05-16-2025 End: 05-16-2025 Culture bacterial quanttative colony count urine Salome Chávez C CONSULTANT-CAPSULE FILLER Work Phone: Start: 05-16-2025 [facility] Jd Pires MD Work Phone: Start: 05-16-2025 Antibody screen NOT PCP Comment on above: Performed By: #### D POLK #### [facility] ([facility]) [address] [place] [address] VIR Start: 05-16-2025 End: 05-16-2025 Blood typing serologic abo Jefferyvickey Willis Varunalexis nava C CONSULTANT-CAPSULE FILLER Work Phone: Start: 05-16-2025 MICHELLE TOP ON ICE Jd Pires MD Work Phone: Start: 05-16-2025 RAINBOW DRAW Jd Pires MD Work Phone: Start: 05-16-2025 End: 05-16-2025 Comprehensive metabolic panel Jefferyvickey Willis Angiecandida C CONSULTANT-CAPSULE FILLER Work Phone: Start: 05-16-2025 Ethanol [Mass/volume ] in Serum or Plasma Jefferyvickey Willis Varunremi C CONSULTANT-CAPSULE FILLER Work Phone: Start: 05-16-2025 URINE CULTURE - [facility] External Data Provider Start: 03-19-2025 MM TOMOSYNTHESIS SCR EENING BI Ochoa Medina MD Work Phone: Start: 11-18-2024 CRYOTHERAPY SKIN LESION Onofre Zuleta C CONSULTANT-CAPSULE FILLER Work Phone: Plan of Treatment Date Care Activity Detail Author Start: 11-18-2025 End: 11-18-2025 Patient encounter procedure [facility] Start: 09-12-2025 Medicare Annual Wellness (AWV) Medicare Annual Wellness (AWV) [facility] Start: 09-08-2025 End: 09-08-2025 Patient encounter procedure [facility] Start: 05-26-2025 Influenza vaccination Influenza Vacc ine (#1) [facility] Start: 05-16-2025 Urine culture [facility] Start: 05-16-2025 Bacteria identified in Urine by Culture Urine Culture [facility] Start: 01-06-2025 End: 01-06-2025 Patient encounter procedure 01/06/2025 9:30 AM EDT Office Visit [facility] [address] [place] [address] Tonia Flores PA [address] [place] [address] Arrived [facility] Comment on above: Arrived Start: 11-18-2024 End: 11-18-2024 Patient encounter procedure [facility] Comment on above: Arrived Start: 09-12-2024 End: 09-12-2024 Patient encounter procedure [facility] Comment on above: Arrived Start: 09-09-2024 End: 09-09-2024 Patient encounter procedure 09/09/2024 10:00 AM EST Office Visit [facility] [address] [place] [address] Tonia Flores PA [address] [place] [address] Arrived [facility] Comment on above: Arrived Start: 09-04-2024 End: 09-04-2024 Patient encounter procedure 09/04/2024 2:00 PM EST Office Visit [facility] [address] [place] [address] Neena Love, COMMUNITY RELATIONS DIRECTOR [address] [place] [address] Arrived [facility] Comment on above: Arrived Start: 06-17-2024 End: 06-17-2024 Patient encounter procedure [facility] Comment on above: Arrived Start: 06-06-2024 Medicare Annual Wellness (AWV) Medicare Annual Wellness (AWV) [facility] Start: 06-03-2024 End: 06-03-2024 Patient encounter procedure 06/03/2024 9:20 AM EDT Office Visit [facility] [address] [place] [address] Onofre Zuleta, C CONSULTANT-CAPSULE FILLER [address] [place] [address] Arrived [facility] Comment on above: Arrived Start: 05-26-2024 Influenza vaccination Influenza Vacc ine (#1) [facility] Start: 05-14-2024 End: 05-14-2024 Patient encounter procedure 05/14/2024 10:05 AM EDT Office Visit [facility] [address] [place] [address] Onofre Zuleta, C CONSULTANT-CAPSULE FILLER [address] [place] [address] Arrived [facility] Comment on above: Arrived Start: 12-05-2023 End: 12-05-2023 Patient encounter procedure 12/05/2023 9:00 AM EDT Office Visit [facility] [address] [place] [address] Tonia Flores, PA [address] [place] [address] [facility] Start: 11-14-2023 End: 11-14-2023 Patient encounter procedure 11/14/2023 9:40 AM EST Office Visit [facility] [address] [place] [id number] Onofre Zuleta APRN-SHAYNA [address] [place] [address] [facility] Start: 11-07-2023 End: 11-07-2023 Patient encounter procedure 11/07/2023 11:30 AM EST Office Visit [facility] [address] [place] [id number] Tonia Flores PA [address] [place] [address] Arrived [facility] Comment on above: Arrived Bacteria identified in Blood by Aerobe culture [facility] Work Phone: URINE CULTURE - [facility] URINE CULTU RE - [facility] Lab Routine 05/16/2025 5:55 PM EDT [facility] Immunizations Immunization Date Immunization Notes Care Provider Fa [facility] 05-16-2025 tetanus toxoid, redu matthew diphtheria toxoid, and acellular pertussis vaccine, adsorbed Wilfredo Moreau MD Work Phone: [facility] 06-02-2024 influenza, high dose seasonal, preservative-free Tonia THOMSON Work Phone: [facility] 06-02-2024 influenza virus vacc ine, unspecified formulation Onofre Zuleta C CONSULTANT-CAPSULE FILLER Work Phone: [facility] 09-08-2023 RSV, recombinant, protein subunit RSVpreF, adjuvant reconstitu, 120mcg/0.5mL, PF (Arexvy) Tonia THOMSON Work Phone: [facility] 06-13-2023 Covid-19, Mrna, Lnp- s, Pf,marci-sucrose,30 Mcg/0.3ml Seasonal Wilfredo Moreau MD Work Phone: [facility] 06-13-2023 Pfizer Purple Cap SARS-CoV-2 Vaccination Tonia Hemmer PA Work Phone: [facility] 06-06-2023 tetanus toxoid, redu matthew diphtheria toxoid, and acellular pertussis vaccine, adsorbed Tonia Hemmer PA Work Phone: [facility] Work Phone: 05-30-2023 Influenza, Seasonal, Quadrivalent, Adjuvanted Tonia Hemmer PA Work Phone: [facility] 05-30-2023 influenza virus vacc ine, unspecified formulation Onofre Zuleta C CONSULTANT-CAPSULE FILLER Work Phone: [facility] 06-03-2022 Moderna Bivalent Trammell ster Vaccination Tonia Hemmer PA Work Phone: [facility] 05-21-2022 Influenza, High-dose Seasonal, Quadrivalent, Preservative Free Tonia Hemmer PA Work Phone: [facility] 05-18-2021 Influenza, High-dose Seasonal, Quadrivalent, Preservative Free Tonia Hemmer PA Work Phone: [facility] 09-09-2018 zoster vaccine recombinant Tonia Hemmer PA Work Phone: [facility] 06-04-2018 influenza, high dose seasonal, preservative-free Tonia Hemmer PA Work Phone: [facility] 04-20-2018 zoster vaccine recombinant Tonia Hemmer PA Work Phone: [facility] 04-10-2018 pneumococcal polysaccharide vaccine, 23 valent Tonia Hemmer PA Work Phone: [facility] 05-23-2017 influenza, high dose seasonal, preservative-free Tonia Hemmer PA Work Phone: [facility] 06-29-2016 influenza, injectabl e, quadrivalent, contains preservative Tonia Hemmer PA Work Phone: [facility] 09-08-2014 pneumococcal conjuga te vaccine, 13 valent Tonia Hemmer PA Work Phone: [facility] 08-01-2013 influenza, high dose seasonal, preservative-free Tonia Hemmer PA Work Phone: [facility] 09-08-2012 zoster vaccine, live Tonia Serene isaiah THOMSON Work Phone: [facility] 03-30-2011 zoster vaccine, live Tonia H isaiah THOMSON Work Phone: [facility] Payers Date Payer Category Payer Self-pay 2024 Commercial Indemnity [employer] [id number] 2021 Private Health Insurance [employer] [id number] 2021 Unknown [employer] M [employer] [id number] 2021-Present [address] [place] [address] [id number] 2003 Medicare [id number]. [id number] 1959 Medicare [id number] 1959 Unknown [id number] 1938 Unknown [id number] 2.16.840.1.312050.3.579.2. 593 1938 Unknown [id number] 2.16.840.1.169856.3.579.2. 593 1938 Unknown [id number] 2.16.840.1.881438.3.579.2. 59 1938 Unknown [id number] 2.16.840.1.891573.3.579.2. 1258 1938 Unknown [id number] 2.16.840.1.171443.3.579.2. 1258 1938 Unknown [id number] 2.16.840.1.185351.3.579.2. 1258 1938 Unknown [id number] 2.16.840.1.937121.3.579.2. 1258 1938 Unknown [id number] 2.16.840.1.685202.3.579.2. 1258 1938 Unknown [id number] 2.16.840.1.426853.3.579.2. 1258 1938 Unknown [id number] 2.16.840.1.680715.3.579.2. 1258 1938 Unknown [id number] 2.16.840.1.704654.3.579.2. 1258 1938 Unknown [id number] 2.16.840.1.037833.3.579.2. 1258 1938 Unknown [id number] 2.16.840.1.652151.3.579.2. 1258 1938 Unknown [id number] 2.16.840.1.347617.3.579.2. 1258 1938 Unknown [id number] 2.16.840.1.706088.3.579.2. 1258 1938 Unknown [id number] 2.16.840.1.986115.3.579.2. 128 1938 Unknown [id number] 2.16.840.1.300705.3.579.2. 1286 1938 Unknown [id number] 2.16.840.1.992255.3.579.2. 1286 1938 Unknown [id number] 2.16.840.1.701268.3.579.2. 128 1938 Unknown [id number] 2.16.840.1.888603.3.579.2. 128 1938 Unknown [id number] 2.16.840.1.689386.3.579.2. 1286 1938 Unknown [id number] 2.16.840.1.990307.3.579.2. 128 1938 Unknown [id number] 2.16.840.1.128546.3.579.2. 1286 Medicare Medicare Outpatient [id number] [id number] Unknown [id number] 2.16.840.1.471968.3.579.2. 531 Social History Date Type Detail Facility Start: 08-24-2023 End: 05-19-2025 Sex Assigned At [facility] Other Start: 02-16-2023 End: 05-17-2025 Tobacco smoking status NMIS Never smoked tobacco [facility] Start: 02-16-2023 End: 05-17-2025 Tobacco use and exposure Smokeless tobacco non-user [facility] Start: 08-24-2023 End: 03-18-2025 Alcohol intake Lifetime non-drinker (finding) [facility] Start: 08-24-2023 End: 05-19-2025 History of Social function [facility] Start: 1940 Sex Assigned At Not on file [facility] Start: 04-30-2015 Sex Female (finding) [facility] Start: 1940 Sex Assigned At Female F [facility] Start: 05-19-2025 Alcoholic beverage intake Ex-drinker (finding) [facility] Has the electric, ga s, oil, or water company threatened to shut off services in your home in past 12Mo No [facility] How often to you hav e a drink containing alcohol? Patient declined [facility] How often do you hav e 6 or more drinks on 1 occasion? Never [facility] [place] Goals Date Patient Goal Desired Activity /State Personal health goal Comment on above: Formatting of this n ote might be different from the original. Evaluation of progress towards goal: Safe discharge from hospital Functional Status Date Assessment Result Facility 05-19-2025 Total score [AUDIT-C] -1 025 2:53 PM EDT Angela Parada RN [facility] 03-18-2025 Patient Health Quest ionnaire 2 item (PHQ-2) [Reported] [facility] 01-06-2025 Patient Health Quest ionnaire 2 item (PHQ-2) [Reported] [facility] Mental Status Date Assessment Result Facility [facility] Clinical Notes 07-15-2021 to 05-20-2025 Linda Valadez RN - 05/20/2025 4:10 PM EDTSyuliya Valadez RN - 05/20/2025 4:10 PM EDTPlan of Care - Linda Valadez RN - 05/20/2025 1:16 PM EDTPlan of Care - Linda Valadez RN - 05/20/2025 1:16 PM EDT Note Date & Type Note Facility 05-20-2025 Nurse Note Patient was educated on discharge materials and IV's were removed. Patient is aware she is going to [facility] with transport. Report was given to transport and patient is on her way to [facility] facility. [facility] 05-20-2025 Nurse Note Patient was educated on discharge materials and IV's were removed. Patient is aware she is going to [facility] with transport. Report was given to transport and patient is on her way to [facility] facility. documented in this encounter [facility] 05-20-2025 Plan of care note Problem: Pain Goal: Patient goal is pain score less than 4, able to rest, and participant in treatment plan as appropriate Description: INTERVENTIONS: 1. Encourage patient or legal sales representative business courses to report early pain and ask for [...] per policy 9. Teach patient or legal sales representative business courses interventions for comforting Outcome: Adequate for Discharge [...] at the bedside 7. Instruct patient/ patient sales representative business courses about use of safety devices 8. Include patient/ patient sales representative business courses in decisions related to safety Outcome: Adequate [...] hygiene technique. 7. Identify and instruct patient/patient sales representative business courses in use of appropriate isolation precautions for identified infection/symptoms. 8. Provide and discuss with patient/patient sales representative business courses on educational MDRO sheet. 9. Encourage and monitor nutritional status daily and consult conveyor belt installer if indicated. 10. Implement neutropenic guidelines as needed. Outcome: Adequate for Discharge Note: Patient has remained free from new infections. Patient educated on infection prevention such as hand hygiene. Problem: Knowledge Deficit Goal: Patient/patient sales representative business courses demonstrates understanding of disease process, treatment plan, medications, and discharge instructions Description: INTERVENTIONS 1. Complete [...] and level of assistance needed for ADLs 4. Monitor and [...] and report duration and description of seizure to LIP 10. If seizure occurs, turn patient to [...] develop effective communication strategies 4. Include patient/patient sales representative business courses in decisions related to communication Outcome: Adequate [...] anxiety both physical and emotional (heart palpitations, chest pain, shortness of breath, headaches, nausea, feeling jumpy, [...] Collaborate with ancillary departments 14. Include patient/patient sales representative business courses in decisions related to anxiety Outcome: Adequate [...] care 6. Collaborate with pastoral/spiritual care, social insurance administrator, mental health counselor as needed. 7. Instruct patient on diversional activities such as physical activity, distraction, and deep breathing exercises to assist with coping 8. Involve patient's sales representative business courses in care Outcome: Adequate for Discharge Note: [...] supplement as ordered 13. Collaborate with clinical conveyor belt installer 14. Include patient/ patient's sales representative business courses in decisions related to nutrition Outcome: Adequate [...] be free from fall Description: Interventions: 1. [place] to environment 2. Hourly rounds addressing the [...] non-skid footwear 11. Teach patient and patient sales representative business courses to maintain environment for safety and engage [...] (cane, walker) within reach 19. Request patient sales representative business courses bring adaptive equipment/mobility aids from home or obtain and provide as needed 20. Consult pharmacy regarding effects of med's affecting mobility, cognition, and alternatives 21. Obtain physician order for PT if risk factors associated with mobility are present 22. Obtain physician order for OT as appropriate 23. Utilize diversional activities 24. Educate patient and patient sales representative business courses how to maintain a safe environment during visitation times (notify nurse prior to leaving bedside) 25. Consider appropriateness of medical or non-medical lab specialist 26. Set up voiding schedule as appropriate (every 2 hours) Outcome: Adequate for Discharge Note: Patient has remained free from falls. [email or web address] [facility] 05-20-2025 Miscellaneous Notes Problem: Pain Goal: Patient goal is pain score less than 4, able to rest, and participant in treatment plan as appropriate Description: INTERVENTIONS: 1. Encourage patient or legal sales representative business courses to report early pain and ask for [...] per policy 9. Teach patient or legal sales representative business courses interventions for comforting Outcome: Adequate for Discharge [...] at the bedside 7. Instruct patient/ patient sales representative business courses about use of safety devices 8. Include patient/ patient sales representative business courses in decisions related to safety Outcome: Adequate [...] hygiene technique. 7. Identify and instruct patient/patient sales representative business courses in use of appropriate isolation precautions for identified infection/symptoms. 8. Provide and discuss with patient/patient sales representative business courses on educational MDRO sheet. 9. Encourage and monitor nutritional status daily and consult conveyor belt installer if indicated. 10. Implement neutropenic guidelines as needed. Outcome: Adequate for Discharge Note: Patient has remained free from new infections. Patient educated on infection prevention such as hand hygiene. Problem: Knowledge Deficit Goal: Patient/patient sales representative business courses demonstrates understanding of disease process, treatment plan, medications, and discharge instructions Description: INTERVENTIONS 1. Complete [...] and level of assistance needed for ADLs 4. Monitor and [...] and report duration and description of seizure to LIP 10. If seizure occurs, turn patient to [...] develop effective communication strategies 4. Include patient/patient sales representative business courses in decisions related to communication Outcome: Adequate [...] anxiety both physical and emotional (heart palpitations, chest pain, shortness of breath, headaches, nausea, feeling jumpy, [...] Collaborate with ancillary departments 14. Include patient/patient sales representative business courses in decisions related to anxiety Outcome: Adequate [...] care 6. Collaborate with pastoral/spiritual care, social insurance administrator, mental health counselor as needed. 7. Instruct patient on diversional activities such as physical activity, distraction, and deep breathing exercises to assist with coping 8. Involve patient's sales representative business courses in care Outcome: Adequate for Discharge Note: [...] supplement as ordered 13. Collaborate with clinical conveyor belt installer 14. Include patient/ patient's sales representative business courses in decisions related to nutrition Outcome: Adequate [...] be free from fall Description: Interventions: 1. [place] to environment 2. Hourly rounds addressing the [...] non-skid footwear 11. Teach patient and patient sales representative business courses to maintain environment for safety and engage [...] (cane, walker) within reach 19. Request patient sales representative business courses bring adaptive equipment/mobility aids from home or obtain and provide as needed 20. Consult pharmacy regarding effects of med's affecting mobility, cognition, and alternatives 21. Obtain physician order for PT if risk factors associated with mobility are present 22. Obtain physician order for OT as appropriate 23. Utilize diversional activities 24. Educate patient and patient sales representative business courses how to maintain a safe environment during visitation times (notify nurse prior to leaving bedside) 25. Consider appropriateness of medical or non-medical lab specialist 26. Set up voiding schedule as appropriate (every 2 hours) Outcome: Adequate for Discharge Note: Patient has remained free from falls. 05/20/25 1231 Referral To Community Referrals / Resources Provided Denies needs Services Requested [facility] to [facility] Does the patient wish to have family/friend/caregiver involved in their discharge planning? Yes Does the patient plan to return home to a community setting? No, patient to discharge to facility-based provider. See Discharge Disposition Discharge Disposition SNF SNF Name [facility] SN[facility] SNF Accepted? Yes Does the patient need discharge transportation arranged? Yes Transportation Arranged Ambulance Mobility issues discussed with transportation provider Yes Patient choice offered Yes List Provided Yes [facility] List Provided Nursing Home Facility DC Planning Complete Discharge Milestones Yes DISCHARGE PLANNING NOTE [facility] is able to accept. Pt informed and is ok w that plan Transport set for 3pm. CN spoke w pts daughter Tawnya and informed her of DC. DC packet on chart and Hens completed. RN given number for report. CRF faxed to [facility]. Sanjay Rosenthal RN DISCHARGE PLANNING NOTE BLS transport with PTN confirmed via [facility] to [facility] 8.26.25 at 1500 Problem: Pain Goal: Patient goal is pain score less than 4, able to rest, and participant in treatment plan as appropriate Description: INTERVENTIONS: 1. Encourage patient or legal sales representative business courses to report early pain and ask for [...] per policy 9. Teach patient or legal sales representative business courses interventions for comforting Note: Patient's pain assessed [...] at the bedside 7. Instruct patient/ patient sales representative business courses about use of safety devices 8. Include patient/ patient sales representative business courses in decisions related to safety Note: No [...] hygiene technique. 7. Identify and instruct patient/patient sales representative business courses in use of appropriate isolation precautions for identified infection/symptoms. 8. Provide and discuss with patient/patient sales representative business courses on educational MDRO sheet. 9. Encourage and monitor nutritional status daily and consult conveyor belt installer if indicated. 10. Implement neutropenic guidelines as needed. Note: Handwashing and standard precautions maintained, patient remains free of signs and symptoms of infection, patient is afebrile, IV insertion site monitored. Will continue to monitor for signs and symptoms of infection. Problem: Knowledge Deficit Goal: Patient/patient sales representative business courses demonstrates understanding of disease process, treatment plan, medications, and discharge instructions Description: INTERVENTIONS 1. Complete [...] and level of assistance needed for ADLs 4. Monitor and [...] and report duration and description of seizure to LIP 10. If seizure occurs, turn patient to side and suction secretions as needed 11. Reorient patient post seizure 12. Seizure pads on all 4 side rails 13. Instruct patient/family to notify RN of any seizure activity 14. Instruct patient/family to call for assistance with activity based on assessment 15. Utilize bleeding precautions if thrombolytic given Note: Complete Neurological assessment as indicated/ordered DISCHARGE PLANNING NOTE Referral sent to [facility] (P# ; F# ) , [facility] (P#: ; F#: ) , [facility] in [place], [place] (P# ; F#: ) Problem: Medication Description: If medication is necessary, [...] active orders for no high risk medications. DISCHARGE PLANNING NOTE Referral sent to [facility] P# [phone] [calling report];/[facility] (P# [calling report]; F# ) Images from the original note were not [...] have money to get more. Never True Hunger Screening Complete? Yes Pt. Eligible for Food / Voucher No Caregiver/Family Member Caregiver/Support System Limitations Patient/Caregiver Goals Patient/Caregiver Goals Nursing Home Care Skilled Nuring Care Skilled Care (Short [...] Yes List Provided Yes [facility] List Provided Nursing Home Facility Patient Goals: Patient/Caregiver Goals Patient/Caregiver Goals: Nursing Home Care Skilled Nuring Care: Skilled Care (Short Term) Goals: Goals discharge (pt-stated) Evaluation of progress towards goal: Safe discharge from hospital Photofinishing Laboratory Worker met with patient at bedside and introduced self and explained role. Patient's PCP and pharmacy was confirmed. Patient needs assistance with ADL's and has none for DME. Per patient report: Smoking: denies ETOH: denies Drugs: denies Patient does not endorse issue obtaining food or medications and all utilities are working. Discharge disposition: SNF placement. SNF list given. Patient and family looking it over. Photofinishing Laboratory Worker will continue to follow for ongoing discharge transition needs. - Mable Fisher RN 05/19/25 12:50 PM Family wants to go to SNF closer to home instead of [facility]. Referrals sent. - Mable Fisher RN 05/19/25 1:47 PM Occupational Therapy Evaluation Discharge Recommendations for Safe [...] her down in the bathtub. Taken to [facility] where she was found to have the following: B [...] Past Medical History: Diagnosis Date Breast cancer ([facility]) 6 Clicks: Daily Activity Putting on and [...] little Scoring Daily Activity Raw Score: 16 [facility] G Code Modifier: CK OT Treatment/Interventions: ADL [...] Mobility Equipment: gait belt, RW, chair alarm Telemetry/Ultrasonic Cleaner: Yes Other: fall risk, some confusion/disorientation Pain [...] daughter Clotilde and her Lola live in [place] and Lola has family in the [facility] - Clotilde stated she would stay with [...] Patient will perform functional mobility with Modified [place] Dates: Start: 05/19/25 Expected End: 06/16/25 Description: [...] Patient will perform toilet transfers with Modified [place] Dates: Start: 05/19/25 Expected End: 06/16/25 Description: Goal Description: Disciplines: OT Problem: Transfers Dates: Start: 05/19/25 Disciplines: OT Goal: Patient will perform transfers with Modified [place] Dates: Start: 05/19/25 Expected End: 06/16/25 Description: Goal Description: Disciplines: OT Problem: Tub/Shower Transfers Dates: Start: 05/19/25 Disciplines: OT Goal: Patient will perform tub/shower transfers with Stand By Assist Dates: Start: 05/19/25 Expected End: 06/16/25 Description: Goal Description: Disciplines: OT Occupational Therapy Care Plan (Resolved) There are no resolved problems. Principal Problem: ICH (intracerebral hemorrhage) ([facility]) Physical Therapy Evaluation Discharge Recommendations for Safe Patient Transition PT Discharge Disposition Recommendation: Post acute - moderate PT Post Acute Moderate Rehab Needs: Recommend moderate intensity rehab, Tolerate 1-2 hrs of therapy 3-5 days/wk, Subacute or chronic functional impairment Current [...] 6 Clicks: Basic Mobility Raw Score: 17 [facility] G Code Modifier: CK Pt is an 85 yo female admit 05/17 from [facility] after found down at home by neighbor. Appears that pt had fall in kitchen and then walked to bathroom where she fell again. Pt amnestic to events. Pt with laceration to back of head and found to have skull fracture, B SAH in temporal lobes and IPH L frontal lobe. Past Medical History: Diagnosis Date Breast cancer (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 Pt did have 1 other fall earlier this year. Prior Function Lives With: Alone Receives Help From: Family (Step-dtr Clotilde and her Lola live in [place]. Clotilde reports she would be able to [...] Pt amb 12 feet in room with JEWELRY MANAGER x 2, 40 [address] hallway with [...] Goal: Patient will perform gait with Modified [place] Dates: Start: 05/19/25 Expected End: 06/06/25 Description: [...] Goal: Patient will perform transfers with Modified [place] Dates: Start: 05/19/25 Expected End: 06/06/25 Description: Goal Description: with RW support as needed Disciplines: PT Physical Therapy Care Plan (Resolved) There are no resolved problems. Principal Problem: ICH (intracerebral hemorrhage) ([facility]) Problem: Pain Goal: Patient goal is pain score less than 4, able to rest, and participant in treatment plan as appropriate Description: INTERVENTIONS: 1. Encourage patient or legal sales representative business courses to report early pain and ask for [...] per policy 9. Teach patient or legal sales representative business courses interventions for comforting Outcome: Progressing Note: Patient [...] at the bedside 7. Instruct patient/ patient sales representative business courses about use of safety devices 8. Include patient/ patient sales representative business courses in decisions related to safety Outcome: Progressing [...] hygiene technique. 7. Identify and instruct patient/patient sales representative business courses in use of appropriate isolation precautions for identified infection/symptoms. 8. Provide and discuss with patient/patient sales representative business courses on educational MDRO sheet. 9. Encourage and monitor nutritional status daily and consult conveyor belt installer if indicated. 10. Implement neutropenic guidelines as needed. Outcome: Progressing Note: Currently being treated for infection. Care continues, along with collaboration with care team as new signs and symptoms arise. Problem: Knowledge Deficit Goal: Patient/patient sales representative business courses demonstrates understanding of disease process, treatment plan, medications, and discharge instructions Description: INTERVENTIONS 1. Complete [...] and level of assistance needed for ADLs 4. Monitor and [...] and report duration and description of seizure to LIP 10. If seizure occurs, turn patient to [...] to balance activity and rest. Assessment completed for any needs on assistive devices/patient safe handling equipment. Collaboration with interdisciplinary teams considered. Problem: Communication Impairment Goal: Ability to express needs and understand communication Description: INTERVENTIONS 1. Assess patient's communication skills and ability to understand information 2. Provide alternate method of communication if needed i.e. ipad, sign board, pen/paper 3. Collaborate with Speech Therapy to develop effective communication strategies 4. Include patient/patient sales representative business courses in decisions related to communication Outcome: Progressing [...] anxiety both physical and emotional (heart palpitations, chest pain, shortness of breath, headaches, nausea, feeling jumpy, [...] Collaborate with ancillary departments 14. Include patient/patient sales representative business courses in decisions related to anxiety Outcome: Progressing [...] care 6. Collaborate with pastoral/spiritual care, social insurance administrator, mental health counselor as needed. 7. Instruct patient on diversional activities such as physical activity, distraction, and deep breathing exercises to assist with coping 8. Involve patient's sales representative business courses in care Outcome: Progressing Note: Patient is [...] supplement as ordered 13. Collaborate with clinical conveyor belt installer 14. Include patient/ patient's sales representative business courses in decisions related to nutrition Outcome: Progressing Note: Pt nutritional needs monitored and addressed as ordered by physician. Dietary recommendations appreciated as ordered. Problem: Potential for Inadequate Tissue [...] Score of =/> 25 or indicated by [facility] Assessment Goal: Patient should be free from fall Description: Interventions: 1. [place] to environment 2. Hourly rounds addressing the [...] non-skid footwear 11. Teach patient and patient sales representative business courses to maintain environment for safety and engage [...] (cane, walker) within reach 19. Request patient sales representative business courses bring adaptive equipment/mobility aids from home or obtain and provide as needed 20. Consult pharmacy regarding effects of med's affecting mobility, cognition, and alternatives 21. Obtain physician order for PT if risk factors associated with mobility are present 22. Obtain physician order for OT as appropriate 23. Utilize diversional activities 24. Educate patient and patient sales representative business courses how to maintain a safe environment during visitation times (notify nurse prior to leaving bedside) 25. Consider appropriateness of medical or non-medical lab specialist 26. Set up voiding schedule as appropriate (every 2 hours) Outcome: Progressing Note: Fall risk assessment preformed and safety measures in place. Education given to family/patient. Care continues. Problem: Pain Goal: Patient goal is pain score less than 4, able to rest, and participant in treatment plan as appropriate Description: INTERVENTIONS: 1. Encourage patient or legal sales representative business courses to report early pain and ask for [...] per policy 9. Teach patient or legal sales representative business courses interventions for comforting Outcome: Progressing Note: Patient [...] at the bedside 7. Instruct patient/ patient sales representative business courses about use of safety devices 8. Include patient/ patient sales representative business courses in decisions related to safety Outcome: Progressing [...] hygiene technique. 7. Identify and instruct patient/patient sales representative business courses in use of appropriate isolation precautions for identified infection/symptoms. 8. Provide and discuss with patient/patient sales representative business courses on educational MDRO sheet. 9. Encourage and monitor nutritional status daily and consult conveyor belt installer if indicated. 10. Implement neutropenic guidelines as needed. Outcome: Progressing Note: Currently being treated for infection. Will continue to monitor for new signs and symptoms. Problem: Knowledge Deficit Goal: Patient/patient sales representative business courses demonstrates understanding of disease process, treatment plan, medications, and discharge instructions Description: INTERVENTIONS 1. Complete [...] and level of assistance needed for ADLs 4. Monitor and [...] and report duration and description of seizure to LIP 10. If seizure occurs, turn patient to [...] to balance activity and rest. Assessment completed for any needs on assistive devices/patient safe handling equipment. [...] supplement as ordered 13. Collaborate with clinical conveyor belt installer 14. Include patient/ patient's sales representative business courses in decisions related to nutrition Outcome: Progressing Note: Pt nutritional needs monitored and addressed as ordered by physician. Dietary recommendations appreciated as ordered. Problem: Moderate - High Risk Fall Score Description: Conrad Fall Score of =/> 25 or indicated by [facility] Assessment Goal: Patient should be free from fall Description: Interventions: 1. [place] to environment 2. Hourly rounds addressing the [...] non-skid footwear 11. Teach patient and patient sales representative business courses to maintain environment for safety and engage [...] (cane, walker) within reach 19. Request patient sales representative business courses bring adaptive equipment/mobility aids from home or obtain and provide as needed 20. Consult pharmacy regarding effects of med's affecting mobility, cognition, and alternatives 21. Obtain physician order for PT if risk factors associated with mobility are present 22. Obtain physician order for OT as appropriate 23. Utilize diversional activities 24. Educate patient and patient sales representative business courses how to maintain a safe environment during visitation times (notify nurse prior to leaving bedside) 25. Consider appropriateness of medical or non-medical lab specialist 26. Set up voiding schedule as appropriate (every 2 hours) Outcome: Progressing Note: Fall risk assessment preformed and safety measures in place. Education given to family/patient. Will continue to monitor. Speech Therapy Dysphagia Treatment Note Assessment: Pt [...] Dysphagia Problem: Swallowing Dates: Start: 05/17/25 Disciplines: HIGH SCHOOL CHEMISTRY TEACHER Goal: LTG: Patient will maintain adequate nutrition/ hydration with optimum safety and efficiency of swallowing function of oral intake without overt signs/symptoms of aspiration for the highest appropriate diet level Dates: Start: 05/17/25 Expected End: 06/17/25 Disciplines: HIGH SCHOOL CHEMISTRY TEACHER Goal: STG: Patient will tolerate therapeutic feeding trials of advanced textures with 90% accuracy with minimal cueing Dates: Start: 05/17/25 Expected End: 06/17/25 Disciplines: HIGH SCHOOL CHEMISTRY TEACHER Outcomes Date/Time User Outcome 05/18/25 1451 Julienne Jolley CCC-[employer]IGH SCHOOL CHEMISTRY TEACHER Progressing Template: ST - Rehab Speech Problem: Auditory Comprehension Dates: Start: 05/17/25 Disciplines: HIGH SCHOOL CHEMISTRY TEACHER Goal: LTG: Patient will comprehend communication related to basic medical and social needs and utilize compensatory strategies to maintain safety in a functional living environment Dates: Start: 05/17/25 Expected End: 06/17/25 Disciplines: HIGH SCHOOL CHEMISTRY TEACHER Goal: STG: Patient will answer simple yes/no questions with 90% accuracy with minimal cueing. Dates: Start: 05/17/25 Expected End: 06/17/25 Disciplines: HIGH SCHOOL CHEMISTRY TEACHER Problem: Verbal Expression Dates: Start: 05/17/25 Disciplines: HIGH SCHOOL CHEMISTRY TEACHER Goal: LTG: Patient will utilize compensatory strategies to communicate wants and needs effectively to different conversational partners, maintain safety and participate socially in a functional living environment Dates: Start: 05/17/25 Expected End: 06/17/25 Disciplines: HIGH SCHOOL CHEMISTRY TEACHER Goal: STG: Patient will complete simple naming tasks at word level (objects, pictures) in activities of daily living with 90% accuracy with minimal cueing Dates: Start: 05/17/25 Expected End: 06/17/25 Disciplines: HIGH SCHOOL CHEMISTRY TEACHER Speech Therapy Care Plan (Resolved) There are no resolved problems. Principal Problem: ICH (intracerebral hemorrhage) ([facility]) Problem: Pain Goal: Patient goal is pain score less than 4, able to rest, and participant in treatment plan as appropriate Description: INTERVENTIONS: 1. Encourage patient or legal sales representative business courses to report early pain and ask for [...] per policy 9. Teach patient or legal sales representative business courses interventions for comforting Outcome: Progressing Note: Patient [...] at the bedside 7. Instruct patient/ patient sales representative business courses about use of safety devices 8. Include patient/ patient sales representative business courses in decisions related to safety Outcome: Progressing [...] hygiene technique. 7. Identify and instruct patient/patient sales representative business courses in use of appropriate isolation precautions for identified infection/symptoms. 8. Provide and discuss with patient/patient sales representative business courses on educational MDRO sheet. 9. Encourage and monitor nutritional status daily and consult conveyor belt installer if indicated. 10. Implement neutropenic guidelines as needed. Outcome: Progressing Note: Currently being treated for infection. Will continue to monitor for new signs and symptoms. Problem: Knowledge Deficit Goal: Patient/patient sales representative business courses demonstrates understanding of disease process, treatment plan, medications, and discharge instructions Description: INTERVENTIONS 1. Complete [...] and level of assistance needed for ADLs 4. Monitor and [...] and report duration and description of seizure to LIP 10. If seizure occurs, turn patient to [...] to balance activity and rest. Assessment completed for any needs on assistive devices/patient safe handling equipment. [...] supplement as ordered 13. Collaborate with clinical conveyor belt installer 14. Include patient/ patient's sales representative business courses in decisions related to nutrition Outcome: Progressing Note: Pt nutritional needs monitored and addressed as ordered by physician. Dietary recommendations appreciated as ordered. Problem: Moderate - High Risk Fall Score Description: Conrad Fall Score of =/> 25 or indicated by [facility] Assessment Goal: Patient should be free from fall Description: Interventions: 1. [place] to environment 2. Hourly rounds addressing the [...] non-skid footwear 11. Teach patient and patient sales representative business courses to maintain environment for safety and engage [...] (cane, walker) within reach 19. Request patient sales representative business courses bring adaptive equipment/mobility aids from home or obtain and provide as needed 20. Consult pharmacy regarding effects of med's affecting mobility, cognition, and alternatives 21. Obtain physician order for PT if risk factors associated with mobility are present 22. Obtain physician order for OT as appropriate 23. Utilize diversional activities 24. Educate patient and patient sales representative business courses how to maintain a safe environment during visitation times (notify nurse prior to leaving bedside) 25. Consider appropriateness of medical or non-medical lab specialist 26. Set up voiding schedule as appropriate (every 2 hours) Outcome: Progressing Note: Fall risk assessment preformed and safety measures in place. Education given to family/patient. Will continue to monitor. 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 Prognosis Services: Skilled HIGH SCHOOL CHEMISTRY TEACHER services to address above deficits Prognosis/Potential: Good Considerations: Previous level of function Discharge Recommendations for Safe Patient Transition [employer] CHEMISTRY TEACHER Therapy Recommendations: Continue ST services Impressions Receptive Language: Severe Expressive Language: Severe Cognitive Linguistic: Severe Plan Frequency: 1-2days/week Duration: Until discharge Treatments/Modalities: Strategies/techniques training Need for skilled Speech Language Pathology Services to address deficits in speech/language/cognition due to a status decline resulting from trauma s/p fall. Prognosis Services: Skilled HIGH SCHOOL CHEMISTRY TEACHER services to address the above deficits Prognosis/Potential: [...] Dysphagia Problem: Swallowing Dates: Start: 05/17/25 Disciplines: HIGH SCHOOL CHEMISTRY TEACHER Goal: LTG: Patient will maintain adequate nutrition/ hydration with optimum safety and efficiency of swallowing function of oral intake without overt signs/symptoms of aspiration for the highest appropriate diet level Dates: Start: 05/17/25 Expected End: 06/17/25 Disciplines: HIGH SCHOOL CHEMISTRY TEACHER Goal: STG: Patient will tolerate therapeutic feeding trials of advanced textures with 90% accuracy with minimal cueing Dates: Start: 05/17/25 Expected End: 06/17/25 Disciplines: HIGH SCHOOL CHEMISTRY TEACHER Template: ST - Rehab Speech Problem: Auditory Comprehension Dates: Start: 05/17/25 Disciplines: HIGH SCHOOL CHEMISTRY TEACHER Goal: LTG: Patient will comprehend communication related to basic medical and social needs and utilize compensatory strategies to maintain safety in a functional living environment Dates: Start: 05/17/25 Expected End: 06/17/25 Disciplines: HIGH SCHOOL CHEMISTRY TEACHER Goal: STG: Patient will answer simple yes/no questions with 90% accuracy with minimal cueing. Dates: Start: 05/17/25 Expected End: 06/17/25 Disciplines: HIGH SCHOOL CHEMISTRY TEACHER Problem: Verbal Expression Dates: Start: 05/17/25 Disciplines: HIGH SCHOOL CHEMISTRY TEACHER Goal: LTG: Patient will utilize compensatory strategies to communicate wants and needs effectively to different conversational partners, maintain safety and participate socially in a functional living environment Dates: Start: 05/17/25 Expected End: 06/17/25 Disciplines: HIGH SCHOOL CHEMISTRY TEACHER Goal: STG: Patient will complete simple naming tasks at word level (objects, pictures) in activities of daily living with 90% accuracy with minimal cueing Dates: Start: 05/17/25 Expected End: 06/17/25 Disciplines: HIGH SCHOOL CHEMISTRY TEACHER Speech Therapy Care Plan (Resolved) There are no resolved problems. Principal Problem: ICH (intracerebral hemorrhage) ([facility]) Problem: Pain Goal: Patient goal is pain score less than 4, able to rest, and participant in treatment plan as appropriate Description: INTERVENTIONS: 1. Encourage patient or legal sales representative business courses to report early pain and ask for [...] per policy 9. Teach patient or legal sales representative business courses interventions for comforting Outcome: Progressing Note: Patient [...] at the bedside 7. Instruct patient/ patient sales representative business courses about use of safety devices 8. Include patient/ patient sales representative business courses in decisions related to safety Outcome: Progressing [...] hygiene technique. 7. Identify and instruct patient/patient sales representative business courses in use of appropriate isolation precautions for identified infection/symptoms. 8. Provide and discuss with patient/patient sales representative business courses on educational MDRO sheet. 9. Encourage and monitor nutritional status daily and consult conveyor belt installer if indicated. 10. Implement neutropenic guidelines as needed. Outcome: Progressing Note: Continue treatment Problem: Knowledge Deficit Goal: Patient/patient sales representative business courses demonstrates understanding of disease process, treatment plan, medications, and discharge instructions Description: INTERVENTIONS 1. Complete [...] and level of assistance needed for ADLs 4. Monitor and [...] and report duration and description of seizure to LIP 10. If seizure occurs, turn patient to [...] develop effective communication strategies 4. Include patient/patient sales representative business courses in decisions related to communication Outcome: Progressing [...] anxiety both physical and emotional (heart palpitations, chest pain, shortness of breath, headaches, nausea, feeling jumpy, [...] Collaborate with ancillary departments 14. Include patient/patient sales representative business courses in decisions related to anxiety Outcome: Progressing [...] care 6. Collaborate with pastoral/spiritual care, social insurance administrator, mental health counselor as needed. 7. Instruct patient on diversional activities such as physical activity, distraction, and deep breathing exercises to assist with coping 8. Involve patient's sales representative business courses in care Outcome: Progressing Note: na Problem: [...] supplement as ordered 13. Collaborate with clinical conveyor belt installer 14. Include patient/ patient's sales representative business courses in decisions related to nutrition Outcome: Progressing [...] Moderate - High Risk Fall Score Description: [place] Fall Score of =/> 25 or indicated by [facility] Assessment Goal: Patient should be free from fall Description: Interventions: 1. [place] to environment 2. Hourly rounds addressing the [...] non-skid footwear 11. Teach patient and patient sales representative business courses to maintain environment for safety and engage [...] (cane, walker) within reach 19. Request patient sales representative business courses bring adaptive equipment/mobility aids from home or obtain and provide as needed 20. Consult pharmacy regarding effects of med's affecting mobility, cognition, and alternatives 21. Obtain physician order for PT if risk factors associated with mobility are present 22. Obtain physician order for OT as appropriate 23. Utilize diversional activities 24. Educate patient and patient sales representative business courses how to maintain a safe environment during visitation times (notify nurse prior to leaving bedside) 25. Consider appropriateness of medical or non-medical lab specialist 26. Set up voiding schedule as appropriate (every 2 hours) Outcome: Progressing Note: Fall risk assessment preformed and safety measures in place. Education given to family/patient. Will continue to monitor. Problem: Pain Goal: Patient goal is pain score less than 4, able to rest, and participant in treatment plan as appropriate Description: INTERVENTIONS: 1. Encourage patient or legal sales representative business courses to report early pain and ask for [...] per policy 9. Teach patient or legal sales representative business courses interventions for comforting Outcome: Progressing Note: Patient [...] at the bedside 7. Instruct patient/ patient sales representative business courses about use of safety devices 8. Include patient/ patient sales representative business courses in decisions related to safety Outcome: Progressing [...] hygiene technique. 7. Identify and instruct patient/patient sales representative business courses in use of appropriate isolation precautions for identified infection/symptoms. 8. Provide and discuss with patient/patient sales representative business courses on educational MDRO sheet. 9. Encourage and monitor nutritional status daily and consult conveyor belt installer if indicated. 10. Implement neutropenic guidelines as needed. Outcome: Progressing Note: Currently being treated for UTI. Will continue to monitor for new signs and symptoms. Problem: Knowledge Deficit Goal: Patient/patient sales representative business courses demonstrates understanding of disease process, treatment plan, medications, and discharge instructions Description: INTERVENTIONS 1. Complete [...] and level of assistance needed for ADLs 4. Monitor and [...] and report duration and description of seizure to LIP 10. If seizure occurs, turn patient to [...] to balance activity and rest. Assessment completed for any needs on assistive devices/patient safe handling equipment. [...] supplement as ordered 13. Collaborate with clinical conveyor belt installer 14. Include patient/ patient's sales representative business courses in decisions related to nutrition Outcome: Progressing Note: Pt nutritional needs monitored and addressed as ordered by physician. Dietary recommendations appreciated as ordered. Problem: Moderate - High Risk Fall Score Description: Conrad Fall Score of =/> 25 or indicated by [facility] Assessment Goal: Patient should be free from fall Description: Interventions: 1. [place] to environment 2. Hourly rounds addressing the [...] non-skid footwear 11. Teach patient and patient sales representative business courses to maintain environment for safety and engage [...] (cane, walker) within reach 19. Request patient sales representative business courses bring adaptive equipment/mobility aids from home or obtain and provide as needed 20. Consult pharmacy regarding effects of med's affecting mobility, cognition, and alternatives 21. Obtain physician order for PT if risk factors associated with mobility are present 22. Obtain physician order for OT as appropriate 23. Utilize diversional activities 24. Educate patient and patient sales representative business courses how to maintain a safe environment during visitation times (notify nurse prior to leaving bedside) 25. Consider appropriateness of medical or non-medical lab specialist 26. Set up voiding schedule as appropriate (every 2 hours) Outcome: Progressing Note: Fall risk assessment preformed and safety measures in place. Education given to family/patient. Will continue to monitor. documented in this encounter [facility] 05-20-2025 Hospital course Narrative Images from the original note were not included. [facility]-DISCHARGE SUMMARY DISCHARGE NOTE / SUMMARY Patient ID: Mei Guardado : 1940 Acct: [id number] Admit Date: 05/16/2025 Discharge Date: 05/20/2025 Admitting Physician: Wilfredo Moreau MD Consults: Neurosurgery and neuro interventional Discharge Diagnoses: Patient Active Problem List Diagnosis Date Noted Fall at home, initial encounter 05/20/2025 Closed fracture of right side of base of skull ([facility]) 05/20/2025 Primary hypertension 05/20/2025 Traumatic rhabdomyolysis 05/20/2025 ICH (intracerebral hemorrhage) ([facility]) 05/16/2025 Past Medical History: Diagnosis Date Breast cancer ([facility]) HOSPITAL COURSE SUMMARY: Mei Guardado is an 85 y.o. White or female transferred from [place] for trauma consult after being found unresponsive [...] Lactic acidosis, leukocytosis - lactate 6.2 at [place] and WBC 20.2 - possible sepsis given [...] time of initiation Rhabdomyolysis - 354 at [place] - repeat CK 1975, myoglobin at 967 [...] 85 Resp: 24 BP: 163/77 Temp: 36.6 C (97.9 F) Discharged Condition: Good DISCHARGE INSTRUCTIONS: Discharge Medications: [...] Follow Up: No future appointments. Follow-up Information OCHOA MEDINA MD . Specialty: Family Medicine Contact information: [address] [facility] [id number] Time Spent: 32 minutes Stew Lepe PA-C Trauma Services Pager [phone] 05/20/25 1:12 PM ALIX Marks 05/20/25 [id number] [facility] [place] [facility]25 Progress note Formatting of t his note is different from the original. 05/20/25 1231 Referral To Community Referrals / Resources Provided Denies needs Services Requested Patient expects to be discharged to: [facility] Does the patient wish to have family/friend/caregiver involved in their discharge planning? Yes Does the patient plan to return home to a community setting? No, patient to discharge to facility-based provider. See Discharge Disposition Discharge Disposition SNF SNF Name [facility] SNF Accepted? Yes Does the patient need discharge transportation arranged? Yes Transportation Arranged Ambulance Mobility issues discussed with transportation provider Yes Patient choice offered Yes List Provided Yes [facility] List Provided Nursing Home Facility DC Planning Complete Discharge Milestones Yes DISCHARGE PLANNING NOTE [facility] is able to accept. Pt informed and is ok w that plan Transport set for 3pm. CN spoke w pts daughter Tawnya and informed her of DC. DC packet on chart and Hens completed. RN given number for report. CRF faxed to [facility]. Sanjay Rosenthal RN [facility] 05-20-2025 Progress note Formatting of t his note might be different from the original. DISCHARGE PLANNING NOTE BLS transport with PTN confirmed via [facility] 05.20.25 at 1500 [facility] 05-20-2025 History of Present illness Narrative Images from the original note were not included. FOLLOW-UP: Post-Intensive Care Rounding Note Patient: Mei Guardado : 1940 Age: 85 y.o. Length of Stay: 4 days Admission Diagnosis: ICH (intracerebral hemorrhage) ([facility]) [I61.9] Reviewing patient due to her recent transfer out from Intensive Care. Recorded vital signs are stable and the patient is not noted to be in any apparent distress. Telemetry and monitoring noted. Staff may call with any issues or concerns regarding her clinical presentation or stability. Thank you, Solomon Mccord RN Rapid Response: [facility] TRAUMA SURGERY - PROGRESS NOTE Patient: Mei [...] Lactic acidosis, leukocytosis - lactate 6.2 at [place] and WBC 20.2 - possible sepsis given [...] initiation 5. Rhabdomyolysis (improving) - 354 at [place] - repeat CK 1975, myoglobin at 967 [...] Making: High Subjective No acute events overnight. Rodriges removed this morning and cervical spine cleared by NS. Patient oriented x3. Denies CORBIN. Objective Vital signs: Vitals: 05/19/25 0900 05/19/25 1000 05/19/25 1100 05/19/25 1124 BP: 137/67 100/46 131/51 Pulse: 86 79 70 Resp: 21 25 (!) 26 Temp: 36.5 C (97.7 F) TempSrc: Oral SpO2: 93% 95% 97% Weight: Height: Temperature Range Last 24 Hours : Temp: 36.5 C (97.7 F) Temp Av.8 C (98.2 F) Min: 36.5 C (97.7 F) Max: 37 C (98.6 F) Admit Weight: 73.3 kg (161 lb 9.6 oz) Body mass index is 27.15 kg/m . Last Weights: Wt Readings from Last 3 [...] in water, 100 mL/hr Trauma Services Pager: [phone] ALIX Marks 05/19/25 1203 TRAUMA SURGERY - PROGRESS NOTE Patient: Mei [...] Lactic acidosis, leukocytosis - lactate 6.2 at [place] - WBC 20.2 - possible sepsis given [...] initiation 5. Rhabdomyolysis (improving) - 354 at [place] - repeat CK this morning at 1976, [...] 138/47 Pulse: 68 72 66 73 Resp: 24 23 Temp: TempSrc: SpO2: 94% 94% 95% 94% Weight: Height: Temperature Range Last 24 Hours : Temp: 36.7 C (98 F) Temp Av.8 C (98.3 F) Min: 36.7 C (98 F) Max: 37 C (98.6 F) Admit Weight: 73.3 kg (161 lb 9.6 oz) Body mass index is 26.08 kg/m . Last Weights: Wt Readings from Last 3 [...] 5 % in water, 100 mL/hr ALIX KATHLEEN 05/18/25 12:06 PM Trauma can be reached via Patient Touch Pager: [phone] ALIX Kathleen 05/18/25 4031 Daily neurovascular progress note: 05/17/25 Day 1 Problem List: Principal Problem: ICH (intracerebral hemorrhage) ([facility]) Identifying statement / history of present illness: Mei Guardado is a 85 y.o. female who presented after for whom vascular neurology was consulted for multifocal cerebral hemorrhages. She initially presented to [facility] after she was found down yesterday in her bathtub with an unknown downtime. CT of the brain revealed [...] follow commands. Cranial nerves tested were intact and she briskly withdraws all 4 extremities to noxious stimuli. Her daughter stated that the patient was talking to her family yesterday over the phone, and she was reportedly normal at that time. Update provider by family patient reportedly hit her head on the edge of the counter in her kitchen and fell to the ground. She has a [...] % BP 138/61 Pulse 76 Temp 37.1 C (98.7 F) (Oral) Resp 19 Ht 167.6 cm (5' 6 ) Wt 73.3 kg (161 lb 9.6 oz) SpO2 92% BMI 26.08 kg/m O2 Device: None (Room air) NIHSS 1a [...] - 0.2 10*3/uL Differential Type AUTOMATED DIFFERENTIAL [facility] draw Collection Time: 05/16/25 10:44 PM Narrative The following orders were created for panel order [facility] draw. Procedure Abnormality Status --------- ------ Michelle Top On Ice[[id number]] Final result Please view results for these tests on the individual orders. Michelle Top On Ice Collection Time: 05/16/25 10:44 [...] Pako Estevez MD on 05/17/2025 1:54 AM Imaging: CT of the brain without contrast: Multifocal subarachnoid hemorrhage primarily within the bilateral temporal lobes and bilateral cerebellum. Left frontal intraparenchymal [...] Active Problem List Diagnosis ICH (intracerebral hemorrhage) ([facility]) Plan: We will continue to monitor clinically Vascular Neurology will continue to follow Sophie Whitney MD PGY-2 Neurology [facility] This patient is being followed by the Neurology Resident service. Contact attending directly during these hours: Monday to 7:30-8:30 A.M. to Monday 12-1:00 p.m. Primary Neurology service: [phone] Consult neurology service: [phone] Resident Stroke Service: [phone] If the patient belongs to the Stroke ANA service please contact the Stroke ANA directly Cosigned by Sophie Landrum MD at 05/20/2025 9:48 AM EDT Associated attestation - Sophie Landrum MD - 05/20/2025 9:48 AM EDT I saw the patient. I participated and was physically present during the iyer portions of the service. I was directly involved in the management and treatment plan of the patient. I have reviewed the resident s note. TRAUMA SURGERY - PROGRESS NOTE Patient: Mei [...] Lactic acidosis, leukocytosis - lactate 6.2 at [place] - WBC 20.2 - possible sepsis given leukocytosis, tachycardia, and lactic acidosis, however no identifiable source of infection at this time. Possible aspiration given CT chest results - daily labs - trend lactate, normal here at 2 - IV fluids - blood culture and urine culture ordered - Rocephin 5. Rhabdomyolysis - 354 at [place] - repeat CK this morning at 1976, [...] this time. She moves BLE spontaneously and follows commands in BUE. She will look at you when speaking but unable to verbalize. Stepdaughter at beside. No current questions or concerns. Objective Vital signs: Vitals: 05/17/25 1300 05/17/25 1400 05/17/25 1500 05/17/25 1600 BP: 147/60 148/53 131/56 141/63 Pulse: 85 82 82 82 Resp: Temp: 36.9 C (98.5 F) TempSrc: Axillary SpO2: 92% 92% 92% 91% Weight: Height: Temperature Range Last 24 Hours : Temp: 36.9 C (98.5 F) Temp Av.2 C (98.9 F) Min: 36.6 C (97.8 F) Max: 37.7 C (99.9 F) Admit Weight: 73.3 kg (161 lb 9.6 oz) Body mass index is 26.08 kg/m . Last Weights: Wt Readings from Last 3 [...] Comments: Followed commands in BUE, able to vp platforms fingers Moves all 4 extremities spontanouesly Opens [...] Pako Estevez MD on 05/17/2025 1:54 AM Allergies No Known Allergies Current Medications [...] mL/hr, Last Rate: 100 mL/hr (05/17/25 0134) MANDIE TILLEY PA-C Trauma Services Pager: [phone] 05/17/25 4:39 PM Please note that portions of this note were generated using voice recognition [employer] dictation software. Although every effort was made to ensure the accuracy of this automated fisheries diver, some errors in fisheries diver may have occurred. Mandie Tilley PA-C 05/17/25 1639 Mandie Tilley PA-C 05/17/25 1640 documented in this encounter [facility] 05-19-2025 Plan of care note Problem: Pain Goal: Patient goal is pain score less than 4, able to rest, and participant in treatment plan as appropriate Description: INTERVENTIONS: 1. Encourage patient or legal sales representative business courses to report early pain and ask for [...] per policy 9. Teach patient or legal sales representative business courses interventions for comforting Note: Patient's pain assessed [...] at the bedside 7. Instruct patient/ patient sales representative business courses about use of safety devices 8. Include patient/ patient sales representative business courses in decisions related to safety Note: No [...] hygiene technique. 7. Identify and instruct patient/patient sales representative business courses in use of appropriate isolation precautions for identified infection/symptoms. 8. Provide and discuss with patient/patient sales representative business courses on educational MDRO sheet. 9. Encourage and monitor nutritional status daily and consult conveyor belt installer if indicated. 10. Implement neutropenic guidelines as needed. Note: Handwashing and standard precautions maintained, patient remains free of signs and symptoms of infection, patient is afebrile, IV insertion site monitored. Will continue to monitor for signs and symptoms of infection. Problem: Knowledge Deficit Goal: Patient/patient sales representative business courses demonstrates understanding of disease process, treatment plan, medications, and discharge instructions Description: INTERVENTIONS 1. Complete [...] and level of assistance needed for ADLs 4. Monitor and [...] and report duration and description of seizure to LIP 10. If seizure occurs, turn patient to side and suction secretions as needed 11. Reorient patient post seizure 12. Seizure pads on all 4 side rails 13. Instruct patient/family to notify RN of any seizure activity 14. Instruct patient/family to call for assistance with activity based on assessment 15. Utilize bleeding precautions if thrombolytic given Note: Complete Neurological assessment as indicated/ordered [facility] 05-19-2025 Progress note Formatting of t his note might be different from the original. DISCHARGE PLANNING NOTE Referral sent to [facility] (P# ; F# ) , [facility] (P#: ; F#: ) , [facility] in [place], [place] (P# ; F#: ) [facility] 05-19-2025 Plan of care note Problem: Medication Description: If medication is necessary, [...] active orders for no high risk medications. [facility] 05-19-2025 Progress note Formatting of t his note might be different from the original. DISCHARGE PLANNING NOTE Referral sent to [facility] WO P# [phone] [calling report];/[facility] (P# [calling report]; F# ) [facility]-19[facility]2025 Progress note Formatting of t his note is different from the original. Images from the original note were not [...] have money to get more. Never True Hunger Screening Complete? Yes Pt. Eligible for Food / Voucher No Caregiver/Family Member Caregiver/Support System Limitations Patient/Caregiver Goals Patient/Caregiver Goals Nursing Home Care Skilled Nuring Care Skilled Care (Short [...] Yes List Provided Yes [facility] List Provided Nursing Home Facility Patient Goals: Patient/Caregiver Goals Patient/Caregiver Goals: Nursing Home Care Skilled Nuring Care: Skilled Care (Short Term) Goals: Goals discharge (pt-stated) Evaluation of progress towards goal: Safe discharge from hospital Photofinishing Laboratory Worker met with patient at bedside and introduced self and explained role. Patient's PCP and pharmacy was confirmed. Patient needs assistance with ADL's and has none for DME. Per patient report: Smoking: denies ETOH: denies Drugs: denies Patient does not endorse issue obtaining food or medications and all utilities are working. Discharge disposition: SNF placement. SNF list given. Patient and family looking it over. Photofinishing Laboratory Worker will continue to follow for ongoing discharge transition needs. - Mable Fisher RN 05/19/25 12:50 PM Family wants to go to SNF closer to home instead of [facility]. Referrals sent. - Mable Fisher RN 05/19/25 1:47 PM [facility] 05-19-2025 Progress note Formatting of t his note is different from the original. Occupational Therapy Evaluation Discharge Recommendations for Safe [...] her down in the bathtub. Taken to [place] where she was found to have the following: B [...] Past Medical History: Diagnosis Date Breast cancer ([facility]) 6 Clicks: Daily Activity Putting on and [...] Mobility Equipment: gait belt, RW, chair alarm Telemetry/Ultrasonic Cleaner: Yes Other: fall risk, some confusion/disorientation Pain [...] daughter Clotilde and her Lola live in [place] and Lola has family in the [facility] - Clotilde stated she would stay with [...] Patient will perform functional mobility with Modified [place] Dates: Start: 05/19/25 Expected End: 06/16/25 Description: [...] Patient will perform toilet transfers with Modified [place] Dates: Start: 05/19/25 Expected End: 06/16/25 Description: Goal Description: Disciplines: OT Problem: Transfers Dates: Start: 05/19/25 Disciplines: OT Goal: Patient will perform transfers with Modified [place] Dates: Start: 05/19/25 Expected End: 06/16/25 Description: Goal Description: Disciplines: OT Problem: Tub/Shower Transfers Dates: Start: 05/19/25 Disciplines: OT Goal: Patient will perform tub/shower transfers with Stand By Assist Dates: Start: 05/19/25 Expected End: 06/16/25 Description: Goal Description: Disciplines: OT Occupational Therapy Care Plan (Resolved) There are no resolved problems. Principal Problem: ICH (intracerebral hemorrhage) ([facility]) [facility] Work Phone: 05-19-2025 Progress note Formatting of t his note is different from the original. Physical Therapy Evaluation Discharge Recommendations for Safe Patient Transition PT Discharge Disposition Recommendation: Post acute - moderate PT Post Acute Moderate Rehab Needs: Recommend moderate intensity rehab, Tolerate 1-2 hrs of therapy 3-5 days/wk, Subacute or chronic functional impairment Current [...] 6 Clicks: Basic Mobility Raw Score: 17 [facility] G Code Modifier: CK Pt is an 85 yo female admit 05/17 from [facility] after found down at home by neighbor. Appears that pt had fall in kitchen and then walked to bathroom where she fell again. Pt amnestic to events. Pt with laceration to back of head and found to have skull fracture, B SAH in temporal lobes and IPH L frontal lobe. 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 Pt did have 1 other fall earlier this year. Prior Function Lives With: Alone Receives Help From: Family (Step-dtr Clotilde and her Lola live in [place]. Clotilde reports she would be able to [...] Pt amb 12 feet in room with JEWELRY MANAGER x 2, 40 [address] hallway with [...] Goal: Patient will perform gait with Modified [place] Dates: Start: 05/19/25 Expected End: 06/06/25 Description: [...] Goal: Patient will perform transfers with Modified [place] Dates: Start: 05/19/25 Expected End: 06/06/25 Description: Goal Description: with RW support as needed Disciplines: PT Physical Therapy Care Plan (Resolved) There are no resolved problems. Principal Problem: ICH (intracerebral hemorrhage) ([facility]) [facility] 05-19-2025 Plan of care note Problem: Pain Goal: Patient goal is pain score less than 4, able to rest, and participant in treatment plan as appropriate Description: INTERVENTIONS: 1. Encourage patient or legal sales representative business courses to report early pain and ask for [...] per policy 9. Teach patient or legal sales representative business courses interventions for comforting Outcome: Progressing Note: Patient [...] at the bedside 7. Instruct patient/ patient sales representative business courses about use of safety devices 8. Include patient/ patient sales representative business courses in decisions related to safety Outcome: Progressing [...] hygiene technique. 7. Identify and instruct patient/patient sales representative business courses in use of appropriate isolation precautions for identified infection/symptoms. 8. Provide and discuss with patient/patient sales representative business courses on educational MDRO sheet. 9. Encourage and monitor nutritional status daily and consult conveyor belt installer if indicated. 10. Implement neutropenic guidelines as needed. Outcome: Progressing Note: Currently being treated for infection. Care continues, along with collaboration with care team as new signs and symptoms arise. Problem: Knowledge Deficit Goal: Patient/patient sales representative business courses demonstrates understanding of disease process, treatment plan, medications, and discharge instructions Description: INTERVENTIONS 1. Complete [...] and level of assistance needed for ADLs 4. Monitor and [...] and report duration and description of seizure to LIP 10. If seizure occurs, turn patient to [...] to balance activity and rest. Assessment completed for any needs on assistive devices/patient safe handling equipment. Collaboration with interdisciplinary teams considered. Problem: Communication Impairment Goal: Ability to express needs and understand communication Description: INTERVENTIONS 1. Assess patient's communication skills and ability to understand information 2. Provide alternate method of communication if needed i.e. ipad, sign board, pen/paper 3. Collaborate with Speech Therapy to develop effective communication strategies 4. Include patient/patient sales representative business courses in decisions related to communication Outcome: Progressing [...] anxiety both physical and emotional (heart palpitations, chest pain, shortness of breath, headaches, nausea, feeling jumpy, [...] Collaborate with ancillary departments 14. Include patient/patient sales representative business courses in decisions related to anxiety Outcome: Progressing [...] care 6. Collaborate with pastoral/spiritual care, social insurance administrator, mental health counselor as needed. 7. Instruct patient on diversional activities such as physical activity, distraction, and deep breathing exercises to assist with coping 8. Involve patient's sales representative business courses in care Outcome: Progressing Note: Patient is [...] supplement as ordered 13. Collaborate with clinical conveyor belt installer 14. Include patient/ patient's sales representative business courses in decisions related to nutrition Outcome: Progressing Note: Pt nutritional needs monitored and addressed as ordered by physician. Dietary recommendations appreciated as ordered. Problem: Potential for Inadequate Tissue [...] Score of =/> 25 or indicated by [facility] Assessment Goal: Patient should be free from fall Description: Interventions: 1. [place] to environment 2. Hourly rounds addressing the [...] non-skid footwear 11. Teach patient and patient sales representative business courses to maintain environment for safety and engage [...] (cane, walker) within reach 19. Request patient sales representative business courses bring adaptive equipment/mobility aids from home or obtain and provide as needed 20. Consult pharmacy regarding effects of med's affecting mobility, cognition, and alternatives 21. Obtain physician order for PT if risk factors associated with mobility are present 22. Obtain physician order for OT as appropriate 23. Utilize diversional activities 24. Educate patient and patient sales representative business courses how to maintain a safe environment during visitation times (notify nurse prior to leaving bedside) 25. Consider appropriateness of medical or non-medical lab specialist 26. Set up voiding schedule as appropriate (every 2 hours) Outcome: Progressing Note: Fall risk assessment preformed and safety measures in place. Education given to family/patient. Care continues. [facility] 05-18-2025 Plan of care note Problem: Pain Goal: Patient goal is pain score less than 4, able to rest, and participant in treatment plan as appropriate Description: INTERVENTIONS: 1. Encourage patient or legal sales representative business courses to report early pain and ask for [...] per policy 9. Teach patient or legal sales representative business courses interventions for comforting Outcome: Progressing Note: Patient [...] at the bedside 7. Instruct patient/ patient sales representative business courses about use of safety devices 8. Include patient/ patient sales representative business courses in decisions related to safety Outcome: Progressing [...] hygiene technique. 7. Identify and instruct patient/patient sales representative business courses in use of appropriate isolation precautions for identified infection/symptoms. 8. Provide and discuss with patient/patient sales representative business courses on educational MDRO sheet. 9. Encourage and monitor nutritional status daily and consult conveyor belt installer if indicated. 10. Implement neutropenic guidelines as needed. Outcome: Progressing Note: Currently being treated for infection. Will continue to monitor for new signs and symptoms. Problem: Knowledge Deficit Goal: Patient/patient sales representative business courses demonstrates understanding of disease process, treatment plan, medications, and discharge instructions Description: INTERVENTIONS 1. Complete [...] and level of assistance needed for ADLs 4. Monitor and [...] and report duration and description of seizure to LIP 10. If seizure occurs, turn patient to [...] to balance activity and rest. Assessment completed for any needs on assistive devices/patient safe handling equipment. [...] supplement as ordered 13. Collaborate with clinical conveyor belt installer 14. Include patient/ patient's sales representative business courses in decisions related to nutrition Outcome: Progressing Note: Pt nutritional needs monitored and addressed as ordered by physician. Dietary recommendations appreciated as ordered. Problem: Moderate - High Risk Fall Score Description: Conrad Fall Score of =/> 25 or indicated by [facility] Assessment Goal: Patient should be free from fall Description: Interventions: 1. [place] to environment 2. Hourly rounds addressing the [...] non-skid footwear 11. Teach patient and patient sales representative business courses to maintain environment for safety and engage [...] (cane, walker) within reach 19. Request patient sales representative business courses bring adaptive equipment/mobility aids from home or obtain and provide as needed 20. Consult pharmacy regarding effects of med's affecting mobility, cognition, and alternatives 21. Obtain physician order for PT if risk factors associated with mobility are present 22. Obtain physician order for OT as appropriate 23. Utilize diversional activities 24. Educate patient and patient sales representative business courses how to maintain a safe environment during visitation times (notify nurse prior to leaving bedside) 25. Consider appropriateness of medical or non-medical lab specialist 26. Set up voiding schedule as appropriate (every 2 hours) Outcome: Progressing Note: Fall risk assessment preformed and safety measures in place. Education given to family/patient. Will continue to monitor. [facility] 05-18-2025 Progress note Formatting of t his note is different from the original. Speech Therapy Dysphagia Treatment Note Assessment: Pt [...] Dysphagia Problem: Swallowing Dates: Start: 05/17/25 Disciplines: HIGH SCHOOL CHEMISTRY TEACHER Goal: LTG: Patient will maintain adequate nutrition/ hydration with optimum safety and efficiency of swallowing function of oral intake without overt signs/symptoms of aspiration for the highest appropriate diet level Dates: Start: 05/17/25 Expected End: 06/17/25 Disciplines: HIGH SCHOOL CHEMISTRY TEACHER Goal: STG: Patient will tolerate therapeutic feeding trials of advanced textures with 90% accuracy with minimal cueing Dates: Start: 05/17/25 Expected End: 06/17/25 Disciplines: HIGH SCHOOL CHEMISTRY TEACHER Outcomes Date/Time User Outcome 05/18/25 1451 Julienne Jolley CCC-HIGH SCHOOL CHEMISTRY TEACHER Progressing Template: ST - Rehab Speech Problem: Auditory Comprehension Dates: Start: 05/17/25 Disciplines: HIGH SCHOOL CHEMISTRY TEACHER Goal: LTG: Patient will comprehend communication related to basic medical and social needs and utilize compensatory strategies to maintain safety in a functional living environment Dates: Start: 05/17/25 Expected End: 06/17/25 Disciplines: HIGH SCHOOL CHEMISTRY TEACHER Goal: STG: Patient will answer simple yes/no questions with 90% accuracy with minimal cueing. Dates: Start: 05/17/25 Expected End: 06/17/25 Disciplines: HIGH SCHOOL CHEMISTRY TEACHER Problem: Verbal Expression Dates: Start: 05/17/25 Disciplines: HIGH SCHOOL CHEMISTRY TEACHER Goal: LTG: Patient will utilize compensatory strategies to communicate wants and needs effectively to different conversational partners, maintain safety and participate socially in a functional living environment Dates: Start: 05/17/25 Expected End: 06/17/25 Disciplines: HIGH SCHOOL CHEMISTRY TEACHER Goal: STG: Patient will complete simple naming tasks at word level (objects, pictures) in activities of daily living with 90% accuracy with minimal cueing Dates: Start: 05/17/25 Expected End: 06/17/25 Disciplines: HIGH SCHOOL CHEMISTRY TEACHER Speech Therapy Care Plan (Resolved) There are no resolved problems. Principal Problem: ICH (intracerebral hemorrhage) ([facility]) [facility] 05-17-2025 Plan of care note Problem: Pain Goal: Patient goal is pain score less than 4, able to rest, and participant in treatment plan as appropriate Description: INTERVENTIONS: 1. Encourage patient or legal sales representative business courses to report early pain and ask for [...] per policy 9. Teach patient or legal sales representative business courses interventions for comforting Outcome: Progressing Note: Patient [...] at the bedside 7. Instruct patient/ patient sales representative business courses about use of safety devices 8. Include patient/ patient sales representative business courses in decisions related to safety Outcome: Progressing [...] hygiene technique. 7. Identify and instruct patient/patient sales representative business courses in use of appropriate isolation precautions for identified infection/symptoms. 8. Provide and discuss with patient/patient sales representative business courses on educational MDRO sheet. 9. Encourage and monitor nutritional status daily and consult conveyor belt installer if indicated. 10. Implement neutropenic guidelines as needed. Outcome: Progressing Note: Currently being treated for infection. Will continue to monitor for new signs and symptoms. Problem: Knowledge Deficit Goal: Patient/patient sales representative business courses demonstrates understanding of disease process, treatment plan, medications, and discharge instructions Description: INTERVENTIONS 1. Complete [...] and level of assistance needed for ADLs 4. Monitor and [...] and report duration and description of seizure to LIP 10. If seizure occurs, turn patient to [...] to balance activity and rest. Assessment completed for any needs on assistive devices/patient safe handling equipment. [...] supplement as ordered 13. Collaborate with clinical conveyor belt installer 14. Include patient/ patient's sales representative business courses in decisions related to nutrition Outcome: Progressing Note: Pt nutritional needs monitored and addressed as ordered by physician. Dietary recommendations appreciated as ordered. Problem: Moderate - High Risk Fall Score Description: Conrad Fall Score of =/> 25 or indicated by [facility] Assessment Goal: Patient should be free from fall Description: Interventions: 1. [place] to environment 2. Hourly rounds addressing the [...] non-skid footwear 11. Teach patient and patient sales representative business courses to maintain environment for safety and engage [...] (cane, walker) within reach 19. Request patient sales representative business courses bring adaptive equipment/mobility aids from home or obtain and provide as needed 20. Consult pharmacy regarding effects of med's affecting mobility, cognition, and alternatives 21. Obtain physician order for PT if risk factors associated with mobility are present 22. Obtain physician order for OT as appropriate 23. Utilize diversional activities 24. Educate patient and patient sales representative business courses how to maintain a safe environment during visitation times (notify nurse prior to leaving bedside) 25. Consider appropriateness of medical or non-medical lab specialist 26. Set up voiding schedule as appropriate (every 2 hours) Outcome: Progressing Note: Fall risk assessment preformed and safety measures in place. Education given to family/patient. Will continue to monitor. [facility] 05-17-2025 Consult note Associated Order (s): IP CONSULT TO NEUROSURGERY Images from the original note were not included. [facility] [address] [place] [address], [address] [place] [address] * NEUROSURGERY CONSULT NOTE DATE:05/17/2025 PATIENT'S NAME: Mei Guardado PATIENT'S PATIENT'S : 1940 NEUROSURGERY ATTENDING: [place] REASON FOR CONSULT [facility] HISTORY OF PRESENT ILLNESS Mei Guardado is a 85 y.o. White or female who presented to [facility] after being found down in her bathtub. She had an unknown downtime. CT of the brain was [facility]'s. Neurosurgery consulted for evaluation. ALLERGIES No Known Allergies MEDICATIONS Current Facility-Administered Medications: acetaminophen (TYLENOL EXTRA STRENGTH) tablet 500 mg, 500 mg, oral, Q6H PRN OR acetaminophen (TYLENOL) 650 mg/20.3 mL solution 500 mg, 500 mg, nasogastric, Q6H PRN OR acetaminophen (TYLENOL) suppository 650 mg, 650 mg, rectal, Q6H PRN, Mary Lowe APRN-CAPSULE FILLER calcium gluconate IVPB 1000 mg/50 mL (20 mg/mL premix), 1,000 mg, intravenous, PRN OR calcium gluconate IVPB 2000 mg/100 mL (20 mg/mL premix), 2,000 mg, intravenous, PRN OR calcium gluconate 3,000 mg in sodium chloride 0.9 % 100 mL IVPB, 3,000 mg, intravenous, PRN, Mary Lowe C CONSULTANT-CAPSULE FILLER cefTRIAXone (ROCEPHIN) 1,000 mg in sodium chloride 0.9 % 50 mL IVPB W/ADAPTER, 1,000 mg, intravenous, Q24H, Salome Chávez APRN-CAPSULE FILLER dextrose (GLUTOSE) 40 % gel 15 g, 15 g, oral, PRN, Mary Lowe C CONSULTANT-CAPSULE FILLER dextrose 5 % (D5W) infusion, 100 mL/hr, intravenous, Continuous PRN, Bashar R Kahook, C CONSULTANT-CAPSULE FILLER dextrose 50 % in water (D50W) 50% solution 25 mL, 25 mL, intravenous, PRN, Mary Lowe C CONSULTANT-CAPSULE FILLER glucagon HCL injection 1 mg, 1 mg, intramuscular, PRN, Mary Lowe, C CONSULTANT-CAPSULE FILLER hydrALAZINE (APRESOLINE) injection 10 mg, 10 mg, intravenous, Q6H PRN, Salome Chávez APRN-CAPSULE FILLER labetaloL (NORMODYNE,TRANDATE) injection 20 mg, 20 mg, intravenous, Q10 Min PRN, Salome Chávez APRN-CAPSULE FILLER, 20 mg at 05/17/25 0024 levETIRAcetam (KEPPRA) IVPB 500 mg/100 mL in iso-osmotic sodium chloride (5 mg/mL premix), 500 mg, intravenous, Q12H SHANTELLE, Stopped at 05/17/25 0847 OR levETIRAcetam (KEPPRA) tablet 500 mg, 500 mg, oral, Q12H SHANTELLE, Mary Lowe APRN-CAPSULE FILLER magnesium sulfate IVPB 2000 mg/50 mL in iso-osmotic water (40 mg/mL premix), 2,000 mg, intravenous, PRN, Stopped at 05/17/25 0415 OR magnesium sulfate IVPB 4000 mg/100 mL in iso-osmotic water (40 mg/mL premix), 4,000 mg, intravenous, PRN, Mary Lowe C CONSULTANT-CAPSULE FILLER ondansetron (PF) (ZOFRAN) injection 4 mg, 4 mg, intravenous, Q6H PRN, Mary Lowe C CONSULTANT-CAPSULE FILLER pantoprazole (PROTONIX) injection 40 mg, 40 mg, intravenous, QAM AC, Mary Lowe C CONSULTANT-CAPSULE FILLER, 40 mg at 05/17/25 0612 polyethylene glycol (GLYCOLAX) packet 17 g, 17 g, oral, Daily PRN, Mary Lowe C CONSULTANT-CAPSULE FILLER potassium chloride (K-TAB,KLOR-CON) CR tablet 20-40 mEq, 20-40 mEq, oral, PRN OR potassium chloride (KAYCIEL) 20 mEq/15 mL solution 20-40 mEq, 20-40 mEq, oral, PRN, Bashar R Kahook, C CONSULTANT-CAPSULE FILLER potassium chloride IVPB 10 mEq/50 mL in water (0.2 mEq/mL premix), 10 mEq, intravenous, PRN OR potassium chloride IVPB 10 mEq/100 mL in water (0.1 mEq/mL premix), 10 mEq, intravenous, PRN, Bashar R Kahook, C CONSULTANT-CAPSULE FILLER sennosides-docusate sodium (SENOKOT-S) 8.6-50 mg 2 tablet, 2 tablet, oral, Nightly, Bashar R Kahook, C CONSULTANT-CAPSULE FILLER sodium phosphate 20 mmol in sodium chloride 0.9 % 250 mL IVPB, 20 mmol, intravenous, PRN OR sodium phosphate 20 mmol in sodium chloride 0.9 % 100 mL IVPB, 20 mmol, intravenous, PRN OR sod phos di, mono-K phos mono (K-PHOS NEUTRAL) 250 mg tablet 2 tablet, 2 tablet, oral, PRN, Bashar R Kahook, C CONSULTANT-CAPSULE FILLER sodium chloride 0.9 % flush 3 mL, 3 mL, intravenous, PRN, Bashar R Kahook, C CONSULTANT-CAPSULE FILLER sodium chloride 0.9 % flush 3 mL, 3 mL, intravenous, Q12H SHANTELLE, Bashar R Kahook, C CONSULTANT-CAPSULE FILLER, 3 mL at 05/17/25 0832 sodium chloride 0.9 % infusion, 10 mL/hr, intravenous, Continuous PRN, Bashar R Kahook, C CONSULTANT-CAPSULE FILLER sodium chloride 0.9 % infusion, 10 mL/hr, intravenous, Continuous PRN, Bashar R Kahook, C CONSULTANT-CAPSULE FILLER sodium chloride 0.9 % infusion, 10 mL/hr, intravenous, Continuous PRN, Bashar R Kahook, C CONSULTANT-CAPSULE FILLER sodium chloride 0.9 % infusion, 100 mL/hr, intravenous, Continuous, Bashar R Kahook, C CONSULTANT-CAPSULE FILLER, Last Rate: 100 mL/hr at 05/17/25 0134, 100 mL/hr at 05/17/25 0134 PAST MEDICAL AND SURGICAL HISTORY Past Medical History: Diagnosis Date Breast cancer ([facility]) Past Surgical History: Procedure Laterality Date BREAST [...] from medical record. PHYSICAL EXAMINATION Temp: [36.6 C (97.8 F)-37.7 C (99.9 F)] 37.6 C (99.7 F) Pulse: [76-107] 100 Resp: [19-30] 23 BP: [...] Units 05/17/25 0433 05/17/25 0311 05/17/25 0120 05/16/25 2244 05/16/25 2243 SODIUM mmol/L -- 142 -- -- 141 [...] Component Value Units Date/Time Blood culture #1 [[id number]] Collected: 05/16/259 Specimen: Blood, Venous Updated: 05/17/25 120 CULTURE RESULTS NO GROWTH <24 HRS Narrative: Suboptimal volume of blood collected, Results may be affected. Blood culture #2 [[id number]] Collected: 05/16/252307 Specimen: Blood, Venous Updated: 05/17/25 120 CULTURE RESULTS NO GROWTH <24 HRS Narrative: Suboptimal volume of blood collected, Results may be affected. Urine Culture Urine, Indwelling Catheter [[id number]] Collected: 05/16/252307 Specimen: Urine, Indwelling Catheter Updated: [...] Pako Estevez MD on 05/17/2025 1:54 AM ASSESSMENT Intracranial Hemorrhage w/ slight shift 2mm w/ no transtentorial herniation SAH PLAN - Non surgical treatment for IPH/SAH - MRI pending for clearing of C-spine, ordered by Trauma - Hold AC/AP until there is [address] head[address] - Neurosurgery to sign off per Dr. Kellogg - remainder per trauma. Crescencio Cox, AHMET-, COMMUTATOR UNDERCUTTER Neurosurgery [facility] EP[employer] Chat preferred 05/17/25 12:43 PM To find out which ANA is on for the day please go to ON-Call Finder in [employer] or [employer] and use log in [employer] and search for PTH Neurosurgery TRACY Garcia 05/17/25 1253 [employer] Work Phone: 05-17-2025 Consult note Associated Order (s): IP CONSULT TO NEUROSURGERY Images from the original note were not included. [facility] [address] [place] [address], [address] [place] [address] * NEUROSURGERY CONSULT NOTE DATE:05/17/2025 PATIENT'S NAME: Mei Guardado PATIENT'S PATIENT'S : 1940 NEUROSURGERY ATTENDING: [place] REASON FOR CONSULT [facility] HISTORY OF PRESENT ILLNESS Mei Guardado is a 85 y.o. White or female who presented to [facility] after being found down in her bathtub. She had an unknown downtime. [facility] Neurosurgery consulted for evaluation. ALLERGIES No Known [...] IVPB, 3,000 mg, intravenous, PRN, Mary Lowe C CONSULTANT-SHAYNA cefTRIAXone (ROCEPHIN) 1,000 mg in sodium chloride 0.9 % 50 mL IVPB W/ADAPTER, 1,000 mg, intravenous, Q24H, Salome Chávez APRN-SHAYNA dextrose (GLUTOSE) 40 % gel 15 g, 15 g, oral, PRN, Mary Lowe C CONSULTANT-SHAYNA dextrose 5 % (D5W) infusion, 100 mL/hr, intravenous, Continuous PRN, Mary Lowe APRN-SHAYNA dextrose 50 % in water (D50W) 50% solution 25 mL, 25 mL, intravenous, PRN, Mary Lowe C CONSULTANT-SHAYNA glucagon HCL injection 1 mg, 1 mg, intramuscular, PRN, Mary Lowe C CONSULTANT-SHAYNA hydrALAZINE (APRESOLINE) injection 10 mg, 10 mg, intravenous, Q6H PRN, Salome Chávez APRN-SHAYNA labetaloL (NORMODYNE,TRANDATE) injection 20 mg, 20 mg, intravenous, Q10 Min PRN, Salome Chávez APRN-SHAYNA, 20 mg at 05/17/25 0024 levETIRAcetam (KEPPRA) IVPB 500 mg/100 mL in iso-osmotic sodium chloride (5 mg/mL premix), 500 mg, intravenous, Q12H SHANTELLE, Stopped at 05/17/25 0847 OR levETIRAcetam (KEPPRA) tablet 500 mg, 500 mg, oral, Q12H SHANTELLE, Mary Lowe APRN-CAPSULE FILLER magnesium sulfate IVPB 2000 mg/50 mL in iso-osmotic water (40 mg/mL premix), 2,000 mg, intravenous, PRN, Stopped at 05/17/25 0415 OR magnesium sulfate IVPB 4000 mg/100 mL in iso-osmotic water (40 mg/mL premix), 4,000 mg, intravenous, PRN, Mary Lowe C CONSULTANT-CAPSULE FILLER ondansetron (PF) (ZOFRAN) injection 4 mg, 4 mg, intravenous, Q6H PRN, Mary Lowe C CONSULTANT-CAPSULE FILLER pantoprazole (PROTONIX) injection 40 mg, 40 mg, intravenous, QAM AC, Jefferyhar R Kahook, C CONSULTANT-CAPSULE FILLER, 40 mg at 05/17/25 0612 polyethylene glycol (GLYCOLAX) packet 17 g, 17 g, oral, Daily PRN, Bashar R Kahook, C CONSULTANT-CAPSULE FILLER potassium chloride (K-TAB,KLOR-CON) CR tablet 20-40 mEq, 20-40 mEq, oral, PRN OR potassium chloride (KAYCIEL) 20 mEq/15 mL solution 20-40 mEq, 20-40 mEq, oral, PRN, Bashar R Kahook, C CONSULTANT-CAPSULE FILLER potassium chloride IVPB 10 mEq/50 mL in water (0.2 mEq/mL premix), 10 mEq, intravenous, PRN OR potassium chloride IVPB 10 mEq/100 mL in water (0.1 mEq/mL premix), 10 mEq, intravenous, PRN, Bashar R Kahook, C CONSULTANT-CAPSULE FILLER sennosides-docusate sodium (SENOKOT-S) 8.6-50 mg 2 tablet, 2 tablet, oral, Nightly, Bashar R Kahook, C CONSULTANT-CAPSULE FILLER sodium phosphate 20 mmol in sodium chloride 0.9 % 250 mL IVPB, 20 mmol, intravenous, PRN OR sodium phosphate 20 mmol in sodium chloride 0.9 % 100 mL IVPB, 20 mmol, intravenous, PRN OR sod phos di, mono-K phos mono (K-PHOS NEUTRAL) 250 mg tablet 2 tablet, 2 tablet, oral, PRN, Bashar R Kahook, C CONSULTANT-CAPSULE FILLER sodium chloride 0.9 % flush 3 mL, 3 mL, intravenous, PRN, Bashar R Kahook, C CONSULTANT-CAPSULE FILLER sodium chloride 0.9 % flush 3 mL, 3 mL, intravenous, Q12H SHANTELLE, Bashar R Kahook, C CONSULTANT-CAPSULE FILLER, 3 mL at 05/17/25 0832 sodium chloride 0.9 % infusion, 10 mL/hr, intravenous, Continuous PRN, Bashar R Kahook, C CONSULTANT-CAPSULE FILLER sodium chloride 0.9 % infusion, 10 mL/hr, intravenous, Continuous PRN, Bashar R Kahook, C CONSULTANT-CAPSULE FILLER sodium chloride 0.9 % infusion, 10 mL/hr, intravenous, Continuous PRN, Bashar R Kahook, C CONSULTANT-CAPSULE FILLER sodium chloride 0.9 % infusion, 100 mL/hr, intravenous, Continuous, TRACY Grant, Last Rate: 100 mL/hr at 05/17/25133, 100 mL/hr at 05/17/25133 PAST MEDICAL AND SURGICAL HISTORY Past Medical History: Diagnosis Date Breast cancer ([facility]) Past Surgical History: Procedure Laterality Date BREAST [...] from medical record. PHYSICAL EXAMINATION Temp: [36.6 C (97.8 F)-37.7 C (99.9 F)] 37.6 C (99.7 F) Pulse: [76-107] 100 Resp: [19-30] 23 BP: [...] Units 05/17/25 0433 05/17/25 0311 05/17/25 0120 05/16/25 2244 05/16/252242 SODIUM mmol/L -- 142 -- -- [...] Component Value Units Date/Time Blood culture #1 [[id number]] Collected: 05/16/252307 Specimen: Blood, Venous Updated: 05/17/251201 CULTURE RESULTS NO GROWTH <24 HRS Narrative: Suboptimal volume of blood collected, Results may be affected. Blood culture #2 [[id number]] Collected: 05/16/252307 Specimen: Blood, Venous Updated: 05/17/251201 CULTURE RESULTS NO GROWTH <24 HRS Narrative: Suboptimal volume of blood collected, Results may be affected. Urine Culture Urine, Indwelling Catheter [[id number]] Collected: 05/16/252307 Specimen: Urine, Indwelling Catheter Updated: [...] Pako Estevez MD on 05/17/2025 1:54 AM ASSESSMENT Intracranial Hemorrhage w/ slight shift 2mm w/ no transtentorial herniation SAH PLAN - Non surgical treatment for IPH/SAH - MRI pending for clearing of C-spine, ordered by Trauma - Hold AC/AP until there is [address] head. - Neurosurgery to sign off per Dr. Kellogg - remainder per trauma. AHMET Vega-BC, COMMUTATOR UNDERCUTTER Neurosurgery [facility] EP[facility] Chat preferred 05/17/25 12:43 PM To find out which ANA is on for the day please go to ON-Call Finder in [employer] or [employer] and use log in [employer] and search for PTH Neurosurgery TRACY Garcia 05/17/25 1253 documented in this encounter [facility] 05-17-2025 Progress note Formatting of t his note is different from the original. 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 Prognosis Services: Skilled HIGH SCHOOL CHEMISTRY TEACHER services to address above deficits Prognosis/Potential: Good Considerations: Previous level of function Discharge Recommendations for Safe Patient Transition HIGH SCHOOL CHEMISTRY TEACHER Therapy Recommendations: Continue ST services Impressions Receptive Language: Severe Expressive Language: Severe Cognitive Linguistic: Severe Plan Frequency: 1-2days/week Duration: Until discharge Treatments/Modalities: Strategies/techniques training Need for skilled Speech Language Pathology Services to address deficits in speech/language/cognition due to a status decline resulting from trauma s/p fall. Prognosis Services: Skilled HIGH SCHOOL CHEMISTRY TEACHER services to address the above deficits Prognosis/Potential: [...] Dysphagia Problem: Swallowing Dates: Start: 05/17/25 Disciplines: HIGH SCHOOL CHEMISTRY TEACHER Goal: LTG: Patient will maintain adequate nutrition/ hydration with optimum safety and efficiency of swallowing function of oral intake without overt signs/symptoms of aspiration for the highest appropriate diet level Dates: Start: 05/17/25 Expected End: 06/17/25 Disciplines: HIGH SCHOOL CHEMISTRY TEACHER Goal: STG: Patient will tolerate therapeutic feeding trials of advanced textures with 90% accuracy with minimal cueing Dates: Start: 05/17/25 Expected End: 06/17/25 Disciplines: HIGH SCHOOL CHEMISTRY TEACHER Template: ST - Rehab Speech Problem: Auditory Comprehension Dates: Start: 05/17/25 Disciplines: HIGH SCHOOL CHEMISTRY TEACHER Goal: LTG: Patient will comprehend communication related to basic medical and social needs and utilize compensatory strategies to maintain safety in a functional living environment Dates: Start: 05/17/25 Expected End: 06/17/25 Disciplines: HIGH SCHOOL CHEMISTRY TEACHER Goal: STG: Patient will answer simple yes/no questions with 90% accuracy with minimal cueing. Dates: Start: 05/17/25 Expected End: 06/17/25 Disciplines: HIGH SCHOOL CHEMISTRY TEACHER Problem: Verbal Expression Dates: Start: 05/17/25 Disciplines: HIGH SCHOOL CHEMISTRY TEACHER Goal: LTG: Patient will utilize compensatory strategies to communicate wants and needs effectively to different conversational partners, maintain safety and participate socially in a functional living environment Dates: Start: 05/17/25 Expected End: 06/17/25 Disciplines: HIGH SCHOOL CHEMISTRY TEACHER Goal: STG: Patient will complete simple naming tasks at word level (objects, pictures) in activities of daily living with 90% accuracy with minimal cueing Dates: Start: 05/17/25 Expected End: 06/17/25 Disciplines: HIGH SCHOOL CHEMISTRY TEACHER Speech Therapy Care Plan (Resolved) There are no resolved problems. Principal Problem: ICH (intracerebral hemorrhage) ([facility]) [facility] 05-17-2025 Plan of care note Problem: Pain Goal: Patient goal is pain score less than 4, able to rest, and participant in treatment plan as appropriate Description: INTERVENTIONS: 1. Encourage patient or legal sales representative business courses to report early pain and ask for [...] per policy 9. Teach patient or legal sales representative business courses interventions for comforting Outcome: Progressing Note: Patient [...] at the bedside 7. Instruct patient/ patient sales representative business courses about use of safety devices 8. Include patient/ patient sales representative business courses in decisions related to safety Outcome: Progressing [...] hygiene technique. 7. Identify and instruct patient/patient sales representative business courses in use of appropriate isolation precautions for identified infection/symptoms. 8. Provide and discuss with patient/patient sales representative business courses on educational MDRO sheet. 9. Encourage and monitor nutritional status daily and consult conveyor belt installer if indicated. 10. Implement neutropenic guidelines as needed. Outcome: Progressing Note: Continue treatment Problem: Knowledge Deficit Goal: Patient/patient sales representative business courses demonstrates understanding of disease process, treatment plan, medications, and discharge instructions Description: INTERVENTIONS 1. Complete [...] and level of assistance needed for ADLs 4. Monitor and [...] and report duration and description of seizure to LIP 10. If seizure occurs, turn patient to [...] develop effective communication strategies 4. Include patient/patient sales representative business courses in decisions related to communication Outcome: Progressing [...] anxiety both physical and emotional (heart palpitations, chest pain, shortness of breath, headaches, nausea, feeling jumpy, [...] Collaborate with ancillary departments 14. Include patient/patient sales representative business courses in decisions related to anxiety Outcome: Progressing [...] care 6. Collaborate with pastoral/spiritual care, social insurance administrator, mental health counselor as needed. 7. Instruct patient on diversional activities such as physical activity, distraction, and deep breathing exercises to assist with coping 8. Involve patient's sales representative business courses in care Outcome: Progressing Note: na Problem: [...] supplement as ordered 13. Collaborate with clinical conveyor belt installer 14. Include patient/ patient's sales representative business courses in decisions related to nutrition Outcome: Progressing [...] Score of =/> 25 or indicated by [facility] Assessment Goal: Patient should be free from fall Description: Interventions: 1. [place] to environment 2. Hourly rounds addressing the [...] non-skid footwear 11. Teach patient and patient sales representative business courses to maintain environment for safety and engage [...] (cane, walker) within reach 19. Request patient sales representative business courses bring adaptive equipment/mobility aids from home or obtain and provide as needed 20. Consult pharmacy regarding effects of med's affecting mobility, cognition, and alternatives 21. Obtain physician order for PT if risk factors associated with mobility are present 22. Obtain physician order for OT as appropriate 23. Utilize diversional activities 24. Educate patient and patient sales representative business courses how to maintain a safe environment during visitation times (notify nurse prior to leaving bedside) 25. Consider appropriateness of medical or non-medical lab specialist 26. Set up voiding schedule as appropriate (every 2 hours) Outcome: Progressing Note: Fall risk assessment preformed and safety measures in place. Education given to family/patient. Will continue to monitor. [facility] 05-17-2025 Plan of care note Problem: Pain Goal: Patient goal is pain score less than 4, able to rest, and participant in treatment plan as appropriate Description: INTERVENTIONS: 1. Encourage patient or legal sales representative business courses to report early pain and ask for [...] per policy 9. Teach patient or legal sales representative business courses interventions for comforting Outcome: Progressing Note: Patient [...] at the bedside 7. Instruct patient/ patient sales representative business courses about use of safety devices 8. Include patient/ patient sales representative business courses in decisions related to safety Outcome: Progressing [...] hygiene technique. 7. Identify and instruct patient/patient sales representative business courses in use of appropriate isolation precautions for identified infection/symptoms. 8. Provide and discuss with patient/patient sales representative business courses on educational MDRO sheet. 9. Encourage and monitor nutritional status daily and consult conveyor belt installer if indicated. 10. Implement neutropenic guidelines as needed. Outcome: Progressing Note: Currently being treated for UTI. Will continue to monitor for new signs and symptoms. Problem: Knowledge Deficit Goal: Patient/patient sales representative business courses demonstrates understanding of disease process, treatment plan, medications, and discharge instructions Description: INTERVENTIONS 1. Complete [...] and level of assistance needed for ADLs 4. Monitor and [...] and report duration and description of seizure to LIP 10. If seizure occurs, turn patient to [...] to balance activity and rest. Assessment completed for any needs on assistive devices/patient safe handling equipment. [...] supplement as ordered 13. Collaborate with clinical conveyor belt installer 14. Include patient/ patient's sales representative business courses in decisions related to nutrition Outcome: Progressing Note: Pt nutritional needs monitored and addressed as ordered by physician. Dietary recommendations appreciated as ordered. Problem: Moderate - High Risk Fall Score Description: Cnorad Fall Score of =/> 25 or indicated by [facility] Assessment Goal: Patient should be free from fall Description: Interventions: 1. [place] to environment 2. Hourly rounds addressing the [...] non-skid footwear 11. Teach patient and patient sales representative business courses to maintain environment for safety and engage [...] (cane, walker) within reach 19. Request patient sales representative business courses bring adaptive equipment/mobility aids from home or obtain and provide as needed 20. Consult pharmacy regarding effects of med's affecting mobility, cognition, and alternatives 21. Obtain physician order for PT if risk factors associated with mobility are present 22. Obtain physician order for OT as appropriate 23. Utilize diversional activities 24. Educate patient and patient sales representative business courses how to maintain a safe environment during visitation times (notify nurse prior to leaving bedside) 25. Consider appropriateness of medical or non-medical lab specialist 26. Set up voiding schedule as appropriate (every 2 hours) Outcome: Progressing Note: Fall risk assessment preformed and safety measures in place. Education given to family/patient. Will continue to monitor. [facility] 05-16-2025 History and physical note Images from the original note were not included. Trauma Surgery History & Physical Examination /Consultation Note Patient: Mei Guardado Date of : 1940 Estimated time of injury: Unknown, last point of contact was morning of 05/15/25, found down around 16:00 today LOC: Yes Transport: EMS from [place] Trauma level: Trauma Consult Work related: No History of Present Illness Mei Guardado is an 85 y.o. White or female with unknown past medical history, transferred from [place] for trauma consult after being found unresponsive at home in her bathtub after a fall. Unknown time down. Last known contact with patient was the morning of 05/15/2025, when she was acting her normal baseline. At baseline, patient is A&O x4 and conversive. Workup at [place] is notable for CT brain revealing skull fracture, multifocal subarachnoid hemorrhages within the bilateral temporal lobes and in the bilateral cerebellum. There was also an intraparenchymal hemorrhage within the left frontal lobe with surrounding edema. Additionally patient had an elevated lactate. Patient was given 2 g Rocephin, 1 g vancomycin, and 1 L of fluids at [place]. Hemoglobin at that time was 13. Per [...] signed DNR CCA, and discussion with step daughter at bedside confirms patient's wishes at this time. [...] 150/52 Pulse: 103 Resp: 24 Temp: 37.7 C (99.9 F) TempSrc: Axillary SpO2: 95% Temperature Range Last 24 Hours : Temp: 37.7 C (99.9 F) Temp Av.7 C (99.9 F) Min: 37.7 C (99.9 F) Max: 37.7 C (99.9 F) Admit Weight: There is no height or weight on file to calculate BMI. Last Weights: Wt Readings from Last 3 Encounters: No data found for Wt I/O's:No intake or output data in the 24 hours ending 05/16/25 2256 O2 Device: None (Room air) Last 24 hr Labs Recent Results (from the past 24 hours) [facility] draw Collection Time: 05/16/25 10:44 PM Narrative The following orders were created for panel order [facility] draw. Procedure Abnormality Status --------- ------ Michelle Top On Ice[[id number]] Please view results for these tests on the individual orders. Cultures: Microbiology Results (last 21 days) Procedure Component Value - Date/Time Urine Culture Urine, Indwelling Catheter [[id number]] Lab Status: No result Specimen: Urine, Indwelling [...] 0 0 CAGE-AID Monica Solis Med Journal 1995 Have you felt the need to cut [...] with unknown past medical history, transferred from [place] for trauma consult after being found unresponsive at home in her bathtub after a fall. Unknown time down. Last known contact with patient was the morning of 05/15/2025, when she was acting her normal baseline. Injuries/Traumatic issues: Traumatic fall -TraumaGram - imaging obtained from [place], results reviewed - CT chest: Bibasilar atelectasis/pneumonitis - CT head: Subarachnoid blood in occipital lobes bilaterally and right cerebellar hemisphere, right posterior scalp hematoma with nondisplaced skull fracture - CTA head /neck: No occlusion or critical stenosis of the intracranial or extracranial circulation - CT abdomen and pelvis: No acute findings -TraumaLabs -CMP -CBC -Coags, PT/INR -Amylase -Lipase -Ethanol -Urine Drug screen -Urinalysis -Trauma Meds -Tetanus -Protonix - IV fluids - PT OT eval - HIGH SCHOOL CHEMISTRY TEACHER eval - monitor vitals - cardiac monitoring [...] Lactic acidosis, leukocytosis - lactate 6.2 at [place] - WBC 20.2 - possible sepsis given leukocytosis, tachycardia, and lactic acidosis, however no identifiable source of infection at this time. Possible aspiration given CT chest results - daily labs - trend lactate - IV fluids - started on Rocephin and vancomycin 5. Elevated creatinine kinase - 354 at [place] - repeat CK, trend for possible rhabdo [...] Additional Notes/Findings: 85-year-old female transferred from an [facility] after having been found down in her bathtub for an undetermined period of time. She was seen as a trauma consult. Injuries include subarachnoid hemorrhage of bilateral occipital lobes and right cerebellar hemisphere, contusion anterior left frontal lobe. Patient also found to have a facial droop with possible stroke. Neurosurgery and Neurology were consulted. Patient to be admitted to the neuro ICU [facility] Work Phone: 05-16-2025 History and physical note Images from the original note were not included. Trauma Surgery History & Physical Examination /Consultation Note Patient: Mei Guardado Date of : 1940 Estimated time of injury: Unknown, last point of contact was morning of 05/15/25, found down around 16:00 today LOC: Yes Transport: EMS from [place] Trauma level: Trauma Consult Work related: No History of Present Illness Mei Guardado is an 85 y.o. White or female with unknown past medical history, transferred from [place] for trauma consult after being found unresponsive at home in her bathtub after a fall. Unknown time down. Last known contact with patient was the morning of 05/15/2025, when she was acting her normal baseline. At baseline, patient is A&O x4 and conversive. Workup at [place] is notable for CT brain revealing skull fracture, multifocal subarachnoid hemorrhages within the bilateral temporal lobes and in the bilateral cerebellum. There was also an intraparenchymal hemorrhage within the left frontal lobe with surrounding edema. Additionally patient had an elevated lactate. Patient was given 2 g Rocephin, 1 g vancomycin, and 1 L of fluids at [place]. Hemoglobin at that time was 13. Per [...] signed DNR CCA, and discussion with step daughter at bedside confirms patient's wishes at this time. Past Medical History History reviewed. No pertinent past medical history. Trauma Past Surgical History No past surgical history on file. Travel Screening No screening recorded since 05/13/25 5229 Travel History Travel since 04/15/25 No documented [...] 150/52 Pulse: 103 Resp: 24 Temp: 37.7 C (99.9 F) TempSrc: Axillary SpO2: 95% Temperature Range Last 24 Hours : Temp: 37.7 C (99.9 F) Temp Av.7 C (99.9 F) Min: 37.7 C (99.9 F) Max: 37.7 C (99.9 F) Admit Weight: There is no height or weight on file to calculate BMI. Last Weights: Wt Readings from Last 3 Encounters: No data found for Wt I/O's:No intake or output data in the 24 hours ending 05/16/25 2256 O2 Device: None (Room air) Last 24 hr Labs Recent Results (from the past 24 hours) [facility] draw Collection Time: 05/16/25 10:44 PM Narrative The following orders were created for panel order [facility] draw. Procedure Abnormality Status --------- ------ Michelle Top On Ice[[id number]] Please view results for these tests on the individual orders. Cultures: Microbiology Results (last 21 days) Procedure Component Value - Date/Time Urine Culture Urine, Indwelling Catheter [[id number]] Lab Status: No result Specimen: Urine, Indwelling [...] with unknown past medical history, transferred from [place] for trauma consult after being found unresponsive at home in her bathtub after a fall. Unknown time down. Last known contact with patient was the morning of 05/15/2025, when she was acting her normal baseline. Injuries/Traumatic issues: Traumatic fall -TraumaGram - imaging obtained from [place], results reviewed - CT chest: Bibasilar atelectasis/pneumonitis - CT head: Subarachnoid blood in occipital lobes bilaterally and right cerebellar hemisphere, right posterior scalp hematoma with nondisplaced skull fracture - CTA head /neck: No occlusion or critical stenosis of the intracranial or extracranial circulation - CT abdomen and pelvis: No acute findings -TraumaLabs -CMP -CBC -Coags, PT/INR -Amylase -Lipase -Ethanol -Urine Drug screen -Urinalysis -Trauma Meds -Tetanus -Protonix - IV fluids - PT OT eval - H[employer] CHEMISTRY TEACHER eval - monitor vitals - cardiac monitoring [...] Lactic acidosis, leukocytosis - lactate 6.2 at [place] - WBC 20.2 - possible sepsis given leukocytosis, tachycardia, and lactic acidosis, however no identifiable source of infection at this time. Possible aspiration given CT chest results - daily labs - trend lactate - IV fluids - started on Rocephin and vancomycin 5. Elevated creatinine kinase - 354 at [place] - repeat CK, trend for possible rhabdo [...] Additional Notes/Findings: 85-year-old female transferred from an outlying hospital after having been found down in [...] the neuro ICU documented in this encounter [facility] 05-16-2025 Emergency department Triage note Pt presents to the ED from [place] [place] as a trauma consult. Pt was found [...] and 1 gram vanco. Pt has a rodriges in place on arrival. Pts VSS. [facility] 05-16-2025 Physician Emergency department Note Images from the original note were not included. [facility] - EMERGENCY DEPARTMENT Pt Name: Mei Guardado Birthdate: 1940 Chief Complaint: Chief Complaint Patient presents with Head Injury History of Present Illness: Initial [...] of Systems Physical Exam: ED Triage Vitals [05/16/252218] Temp Heart Rate Resp BP SpO2 37.7 C (99.9 F) 103 24 150/52 95 % Temp Source Heart Rate Source Patient Position BP Location FiO2 (%) Axillary Monitor High-fowlers Left arm -- Vitals: 05/16/252218 BP: 150/52 Temp: 37.7 C (99.9 F) TempSrc: Axillary Pulse: 103 Resp: 24 SpO2: [...] Making ED Course: Clinical Impressions as of 05/16/252299 ICH (intracerebral hemorrhage) ([facility]) . ED Disposition None . Please note that portions of this note were completed with a voice recognition program. Efforts were made to edit the dictations but occasionally words are mis-transcribed. Gopal Clayton 05/16/252222 Jd Pires MD 05/17/251939 [facility] 05-16-2025 Emergency department Note Pt presents to the ED from [place] as a trauma consult. Pt was found [...] and 1 gram vanco. Pt has a rodriges in place on arrival. Pts VSS. Images from the original note were not included. [facility] - EMERGENCY DEPARTMENT Pt Name: Mei Guardado Birthdate: 1940 Chief Complaint: Chief Complaint Patient presents with Head Injury History of Present Illness: Initial [...] of Systems Physical Exam: ED Triage Vitals [05/16/252218] Temp Heart Rate Resp BP SpO2 37.7 C (99.9 F) 103 24 150/52 95 % Temp Source Heart Rate Source Patient Position BP Location FiO2 (%) Axillary Monitor High-fowlers Left arm -- Vitals: 05/16/252218 BP: 150/52 Temp: 37.7 C (99.9 F) TempSrc: Axillary Pulse: 103 Resp: 24 SpO2: [...] as of 05/16/25 2300 ICH (intracerebral hemorrhage) ([facility]) . ED Disposition None . Please note that portions of this note were completed with a voice recognition program. Efforts were made to edit the dictations but occasionally words are mis-transcribed. Gopal Clayton 05/16/252222 Jd Pires MD 05/17/251939 Trauma consult , fall in shower at home, found with laceration to head and posterior skull fracture. ground transport to [facility] Er accepted per Mei Francis [...] 74, 16, 100% Step Daughter coming from [facility] Left at [facility]: 85 F Found at home in bathtub with head injury Unknown down time [place] to back of head Brain bleeds Alert to verbal stimuli A&O 4 before this VSS 153/70 104 sinus tach 26 96% 20g R forearm 20 g LAC 15 mins out Bed: 27 Expected date: Expected time: Means of arrival: Other EMS Transport ([facility]) Comments: Trauma consult , fall in shower at home, found with laceration to head and posterior skull fracture. ground transport to [facility] Er accepted per Mei Francis [...] 74, 16, 100% Step Daughter coming from [facility] Left at [address] [facility]: 85 F Found at home in bathtub with head injury Unknown down time [place] to back of head Brain bleeds Alert to verbal stimuli A&O 4 before this VSS 153/70 104 sinus tach 26 96% 20g R forearm 20 g LAC 15 mins out documented in this encounter [facility] 05-16-2025 Emergency department Note Trauma consult , fall in shower at home, found with laceration to head and posterior skull fracture. ground transport to [facility] Er accepted per Mei Francis [...] 74, 16, 100% Step Daughter coming from [facility] Left at [address] [facility]: 85 F Found at home in bathtub with head injury Unknown down time [place] to back of head Brain bleeds Alert to verbal stimuli A&O 4 before this VSS 153/70 104 sinus tach 26 96% 20g R forearm 20 [facility] LAC [address] [facility] Emergency department Note Bed: 27 Expected date: Expected time: Means of arrival: Other EMS Transport ([facility]) Comments: Trauma consult , fall in shower at home, found with laceration to head and posterior skull fracture. ground transport to [facility] Er accepted per Dr Prieto Guardado, Mei Rust 85 yrs F (1940) RN Report: Found [...] 74, 16, 100% Step Daughter coming from [facility] Left at 2049 [facility]: 85 F Found at home in bathtub with head injury Unknown down time [place] to back of head Brain bleeds Alert to verbal stimuli A&O 4 before this VSS 153/70 104 sinus tach 26 96% 20g R forearm 20 g LAC 15 mins out [facility] 03-18-2025 History of Present illness Narrative Subjective Patient ID: Mei Guardado is a 85 y.o. female [...] Medicare Wellness Visit. documented in this encounter [facility] 01-06-2025 History of Present illness Narrative Images from the original note were not included. Subjective Patient ID: Mei Guardado is a 84 y.o. female who presents [...] strain Hypertension (CMS/HCC) Macular degeneration Migraine headache ([facility]/HCC) Myopic degeneration 2024 JEREMY (obstructive sleep apnea) Osteopenia Osteoporosis ([facility]/HCC) Past Surgical History: Procedure Laterality Date BREAST [...] 03/08/2025) for Hypertension. documented in this encounter [facility] 09-16-2024 Telephone encounter Note Patient notified [facility] 09-16-2024 Miscellaneous Notes Patient notified Please let pt know that her recent labs showed her LDL (bad cholesterol) was elevated at 171. Similar to previous of 175. Her protein was mildly low. Otherwise labs looked good. Would just recommend she increase her protein intake in her diet. Limit fried foods, fast foods, fatty foods, and simple sugars. documented in this encounter [facility] 09-16-2024 Telephone encounter Note Please let pt know that her recent labs showed her LDL (bad cholesterol) was elevated at 171. Similar to previous of 175. Her protein was mildly low. Otherwise labs looked good. Would just recommend she increase her protein intake in her diet. Limit fried foods, fast foods, fatty foods, and simple sugars. [facility] 09-12-2024 History of Present illness Narrative Images from the original note were not included. Subjective Patient ID: Mei Guardado is a 84 y.o. female who presents [...] by direct observation Three Word Registration: Banana, [place], Chair Clock Drawing: Normal Clock - 2 Three Word Recall: All 3 words correct - 3 Total Score (0-5 Points): 5 Pain Assessment Pain Score: 0 - No pain Advance Care Planning Do you have a living will?: Yes Do you have a medical power of commonwealth attorney?: Yes Current Outpatient Medications on File [...] are suggested at this time. 4. Seizure ([facility]) No recent seizures. Not currently on any medication for seizures. Will continue to monitor. 5. Benign essential hypertension ([facility]) Patient's blood pressure is currently well controlled. [...] 8. Age-related osteoporosis without current pathological fracture ([facility]) This is a chronic medical condition that [...] Dispense: 30 mL; Refill: 3 11. Hypercholesterolemia ([facility]) This is a chronic medical condition that is stable since last assessment. No changes in treatment are suggested at this time. Will continue to monitor with routine labs. 12. Macular degeneration of both eyes, unspecified type The patient is seeing a product manager medical device for this condition, treatment is deferred to that specialist. Encouraged routine follow up appointments. 13. ACP Patient willing to discuss ACP. Pt has Living Will and DPOA in place. Follow up in about 6 months (around 03/13/2025) for Hypertension. Tonia LEON PA-C documented in this encounter [facility] 09-09-2024 History of Present illness Narrative Images from the original note were not included. Subjective Patient ID: Mei Guardado is a 84 y.o. female who presents [...] Medicare Wellness Visit. documented in this encounter [facility] 09-06-2024 History of Present illness Narrative HPI: Historian of HPI: patient Mei Guardado is a 84 y.o. female who presents [...] See telephone encounter. documented in this encounter [facility] 09-04-2024 History of Present illness Narrative Images from the original note were not included. Subjective Patient ID: Mei Guardado is a 84 y.o. female who presents [...] follow-ups on file. documented in this encounter [facility] 09-04-2024 Instructions Neena Love NP - 09/04/2024 2:00 PM EST Cefdinir started today. documented in this encounter [facility] 08-06-2024 History of Present illness Narrative Images from the original note were not included. Subjective Patient ID: Mei Guardado is a 84 y.o. female who presents [...] follow-ups on file. documented in this encounter [facility] 08-06-2024 Miscellaneous Notes Addended by: LYNDA BECKWITH on: 08/06/2024 10:51 AM Modules accepted: Orders, Level of Service documented in this encounter [facility] 08-06-2024 Note Addended by: LYNDA BECKWITH on: 08/06/2024 10:51 AM Modules accepted: Orders, Level of Service [facility] 08-06-2024 Note Addended by: LYNDA BECKWITH on: 08/06/2024 10:51 AM Modules accepted: Orders, Level of Service [facility] 06-17-2024 History of Present illness Narrative Images from the original note [...] Visit: as scheduled documented in this encounter [facility] 06-03-2024 History of Present illness Narrative Images from the original note were not included. Follow up Diagnosis: Onycholysis due to pseudomonas infection Location: Left 4th finger nail plate Last visit: 05/14/2024 Symptoms: denies pain and drainage; looks about the same Status: worse since wearing nail samoan over the weekend Current treatment: Vinegar soaks [...] Visit: 2 weeks documented in this encounter [facility] 05-14-2024 Telephone encounter Note Patient seen today in office. Cipro sent in to take BID x 10 days. Please move follow up from one month to 2 weeks. Thanks! [facility] 05-14-2024 Miscellaneous Notes Patient seen today in office. Cipro sent in to take BID x 10 days. Please move follow up from one month to 2 weeks. Thanks! documented in this encounter [facility] 05-14-2024 History of Present illness Narrative Images from the original note were not included. Follow up Diagnosis: Onycholysis due to pseudomonas infection Location: Left 4th finger nail plate Last visit: 3 months ago Symptoms: denies pain and drainage; seems to get better if pt doesn't wear nail samoan Status: worse since wearing nail samoan over the weekend Current treatment: Vinegar soaks [...] Visit: 1 month documented in this encounter [facility] 11-18-2023 History of Present illness Narrative Skin Check Location: Patient requests [...] limited to risks of scarring, darker or manager hospitality pigmentary changes, recurrence, incomplete removal and infection. [...] Visit: 1 year documented in this encounter [facility] 11-18-2023 History of Present illness Narrative Skin Check Location: Patient requests [...] limited to risks of scarring, darker or manager hospitality pigmentary changes, recurrence, incomplete removal and infection. [...] Visit: 1 year documented in this encounter [facility] 11-07-2023 History of Present illness Narrative Subjective Patient ID: Mei Guardado is a 83 y.o. female who presents [...] Visit in May. documented in this encounter [facility] 07-15-2021 Evaluation note Encounter Date Diagnosis [...] Patient care instructions given in writting by [facility] At Home document. [employer] Other Evaluation note* Diagnosis Acute recurrent frontal sinusitis- Primary [facility] Diagnosis Hypercholesterolemia (CMS/HCC)- Primary Pure hypercholesterolemia Acute non-recurrent pansinusitis- Primary Unspecified convulsions (CMS/HCC) [facility]* Diagnosis Hypercholesterolemia (CMS/HCC)- Primary Pure hypercholesterolemia Rib contusion, left, subsequent encounter- Primary [facility]* Diagnosis Hypercholesterolemia (CMS/HCC)- Primary Pure hypercholesterolemia Fall, initial encounter- Primary [...] note* Diagnosis Hypercholesterolemia (CMS/HCC)- Primary Pure hypercholesterolemia Medicare annual wellness visit, [...] to Pseudomonas infection documented in this encounter [facility] HealthcareEvaluation note* Diagnosis Hypercholesterolemia (CMS/HCC)- Primary Pure hypercholesterolemia Acute non-recurrent ethmoidal sinusitis- Primary [facility]* Diagnosis Hypercholesterolemia- Primary Pure hypercholesterolemia Benign essential hypertension- Primary Essential hypertension, benign Acute seasonal allergic rhinitis due to pollen documented in this encounter [facility] HealthcareEvaluation noteNo assessment information availableUniversity [facility]als [facility] Work Phone: Evaluation note* Diagnosis ICH (intracerebral hemorrhage) (CMS-HCC)- Primary Intracerebral hemorrhage ICH (intracerebral hemorrhage) (CMS-HCC) Intracerebral hemorrhage Fall at home, initial encounter Closed fracture of right side of base of skull (CMS-HCC) Primary hypertension Unspecified essential hypertension Traumatic rhabdomyolysis [facility] - Reported* Type Description Date Medical History breast cancer Medical History HTN Surgical History lumpectomy Surgical History rotator cuff Hospitalization History See past surgical hx [facility] Other Hospital Discharge instructionsNot on filedocumented in this encounterSelect [facility] SystemReason for referral (narrative)No reason for referral information availableUniversity [facility]als [facility] Work Phone: Summary Purpose Family History No Family History Records Found Relationship Condition Age at Onset Recorded Date/T ammy father Unknown mother Unknown Advance Directives No Advanced Directives Records Found Advance Directive Response Recorded Date/ Time Advance Directives No March 12 9:38am Date Activated Date Inactivated Comments 05/16/2025 10:57 PM 05/20/2025 6:16 PM Date Activated Date Inactivated Comments 05/16/2025 10:42 PM 05/16/2025 10:57 PM Additional Source Comments INFORMATION SOURCE (unrecogn ized section and content) DATE CREATED AUTHOR 03/19/2022 [facility] DATE CREATED AUTHOR AUTHOR'S ORGANIZ ATION 09/17/2024 [facility] DATE CREATED AUTHOR AUTHOR'S ORGANIZ ATION 03/19/2025 [facility] EPIC DATE CREATED AUTHOR AUTHOR'S ORGANIZ ATION 05/20/2025 [facility] DATE CREATED AUTHOR AUTHOR'S ORGANIZ ATION 05/23/2025 [facility] DATE CREATED AUTHOR AUTHOR'S ORGANIZ ATION 05/23/2025 [facility] REASON FOR VISIT (unrecogniz ed section and content) Reason Comments Follow-up Reason Comments Medicare Annual Wellness Visit Subsequen t Reason Comments Hypertension Reason Comments Head Injury Specialty Diagnoses / Procedures Referred By Contac t Referred To Contact Diagnoses ICH (intracerebral hemorrhage) ([facility]) [facility] - Emergency Department [address] [place] [address] Phone: tel: fax: Referral ID Status Reason Start Date Expiration Date Visits Re quested Visits Authorized [id number] 1 1 Care Teams (unrecognized sec tion and content) Residence Director Relationship Specialty Start Date End Date Ochoa Medina MD [address] [facility] [address] [place] [address] PCP - General Family Medicine 02/16/23 Ochoa Medina MD [address] [facility] [address] [place] [address] PCP - ACO Reach 02/16/23 Residence Director Relationship Specialty Start Date End Date Ochoa Medina MD [address] [facility] [address] [place] [address] PCP - General Family Medicine 02/16/23 Ochoa Medina MD [address] [facility] [address] [place] [address] PCP - ACO Reach 02/16/23 Residence Director Relationship Specialty Start Date End Date Ochoa Medina MD [address] [facility] [address] [place] [address] PCP - General Family Medicine 02/16/23 Ochoa Medina MD [address] [facility] [address] [place] [address] PCP - ACO Reach 01/24/24 Residence Director Relationship Specialty Start Date End Date Ochoa Medina MD [address] [facility] [address] [place] [address] PCP - General Family Medicine 02/16/23 Ochoa Medina MD [address] [facility] [address] [place] [address] PCP - ACO Reach 01/24/24 Residence Director Relationship Specialty Start Date End Date Ochoa Medina MD [address] [facility] [address] [place] [address] PCP - General Family Medicine 02/16/23 Ochoa Medina MD [address] [facility] [address] [place] [address] PCP - ACO Reach 01/24/24 Residence Director Relationship Specialty Start Date End Date Ochoa Medina MD [address] [facility] [address] [place] [address] PCP - General Family Medicine 02/16/23 Ochoa Medina MD [address] [facility] [address] [place] [address] PCP - ACO Reach 01/24/24 Residence Director Relationship Specialty Start Date End Date Ochoa Medina MD [address] [facility] [address] [place] [address] PCP - General Family Medicine 02/16/23 Ochoa Medina MD [address] [facility] [address] [place] [address] PCP - ACO Reach 01/24/24 Residence Director Relationship Specialty Start Date End Date Ochoa Medina MD [address] [facility] [address] [place] [address] PCP - General Family Medicine 02/16/23 Ochoa Medina MD [address] [facility] [address] [place] [address] PCP - ACO Reach 01/24/24 Residence Director Relationship Specialty Start Date End Date Ochoa Medina MD [address] [facility] [address] [place] [address] PCP - General Family Medicine 02/16/23 Ochoa Medina MD [address] [facility] [address] [place] [address] PCP - ACO Reach 01/24/24 Residence Director Relationship Specialty Start Date End Date Ochoa Medina MD [address] [facility] [address] [place] [address] PCP - General Family Medicine 02/16/23 Ochoa Medina MD [address] [facility] [address] [place] [address] PCP - ACO Reach 01/24/24 Residence Director Relationship Specialty Start Date End Date Ochoa Medina MD [address] [facility] [address] [place] [address] PCP - General Family Medicine 02/16/23 Ochoa Medina MD [address] [facility] [address] [place] [address] PCP - ACO Reach 01/24/24 Residence Director Relationship Specialty Start Date End Date Ochoa Medina MD [address] [facility] [address] [place] [address] PCP - General Family Medicine 02/16/23 Ochoa Medina MD [address] [facility] [address] [place] [address] PCP - ACO Reach 01/24/24 Residence Director Relationship Specialty Start Date End Date Ochoa Medina MD [address] [facility] [address] [place] [address] PCP - General Family Medicine 02/16/23 Ochoa Medina MD [address] [facility] [address] [place] [address] PCP - ACO Reach 01/24/24 Residence Director Relationship Specialty Start Date End Date Ochoa Medina MD [address] [facility] [address] [place] [address] PCP - General Family Medicine 02/16/23 Ochoa Medina MD [address] [facility] [address] [place] [address] PCP - ACO Reach 01/24/24 Team Status: Inactive Member Role Status Dates Sage Hall DO Attending Provider Active Sta rt: May 16, 2025 End: May 16, 2025 Residence Director Relationship Specialty Start Date End Date Ochoa Medina MD [place], [place] [id number] PCP - General Family Medicine 05/17/25 Goals (unrecognized section and content) Goals may be documented in a n alternate section Scheduled Active and Recently Administ ered Medications (unrecognized section and content) Medication Order 05/18/2025 05/19/2025 05/20/2025 acetaminophen (OFIRMEV) IVPB Premix 1,000 mg (COMPLETED) 1,000 mg, intravenous, at 400 mL/hr, Administer over 15 Minutes, Every 6 hours, First dose on 05/17/25 at 1715, For 24 hours 0506 (New Bag - Provider: Emily Byrne RN)0521 (Stop Bag - Provider: Emily Byrne, VERONICA)1043 (New Bag - Provider: Sofia Buckner RN)1058 (Stop Bag - Provider: Sofia Buckner RN) ampicillin-sulbactam (UNASYN) 3,000 mg in sodium chloride [...] Buckner RN)1140 (Stop Bag - Provider: Sofia Buckner RN)1711 (New Bag - Provider: Mike Leon RN)1741 (Stop Bag - Provider: Mike Leon, RN)2224 (New Bag - Provider: Emily Byrne, RN)2254 (Stop Bag - Provider: Emily Byrne, RN) 0455 (New Bag - Provider: Emily Byrne RN)0525 (Stop Bag - Provider: Emily Byrne, VERONICA)1128 (New Bag - Provider: Jude Tafoya, RN)1158 (Stop Bag - Provider: Jude Tafoya, RN)1737 (New Bag - Provider: Jude Tafoya, RN)1807 (Stop Bag - Provider: Jude Tafoya [...] Look-alike/sound-alike medication - verify indication for use. 826 (Given - Provider: Jude Tafoya RN)2026 (Given - Provider: Nilda Caraballo RN) 08 (Given - Provider: Linda Valadez RN) enoxaparin (LOVENOX) syringe 30 mg 30 mg, subcutaneous, Every 12 hours, First dose on Mon05/18/25 at 1800, Look-alike/sound-alike medication - verify indication for use. 1704 (Given - Provider: Mike Leon RN) 0501 (Given - Provider: Emily Byrne RN)1734 (Given - Provider: Jude Tafoya RN) 0519 (Given - Provider: Nilda Caraballo RN) levETIRAcetam (KEPPRA) IVPB 500 mg/100 mL in [...] Tafoya RN)2026 (See Alternative - Provider: Nilda Caraballo RN) 0831 (See Alternative - Provider: Linda Valadez, VERONICA) levETIRAcetam (KEPPRA) tablet 500 mg(Linked Group 1) [...] Byrne RN) 826 (Given - Provider: Jude Tafoya, VERONICA)2026 (Given - Provider: Nilda Caraballo RN) 08 (Given - Provider: Linda Valadez, VERONICA) loratadine (CLARITIN) tablet 10 mg 10 mg, oral, Daily, First dose on 05/19/25 at 1230, Look-alike/sound-alike medication - verify indication for use. 144 (Given - Provider: Jude Tafoya RN) 08 (Given - Provider: Linda Valadez RN) metoprolol tartrate (LOPRESSOR) tablet 50 mg [...] Other (CARLOS), Please specify: Stress Ulcer Prophylaxis 06 (Given - Provider: Emily Byrne RN) 06 (Given - Provider: Emily Byrne RN) sennosides-docusate sodium (SENOKOT-S) 8.6-50 mg 2 tablet 2 tablet, oral, Nightly, First dose on Mon05/16/25 at 2255, Administer when tolerating diet. Hold medication for diarrhea. 2005 (Given - Provider: Emily Byrne, RN)2199 (Canceled Entry - Provider: Emily Byrne RN) 2026 (Given - Provider: Nilda Caraballo, RN) sodium chloride 0.9 % flush 3 mL 3 mL, intravenous, Every 12 hours scheduled, First dose on Mon05/16/25 at 2255 0905 (Given - Provider: Sofia Buckner, VERONICA)2005 (Given - Provider: Emily Byrne RN) 0827 (Given - Provider: Jude Tafoya, VERONICA)2026 (Given - Provider: Nilda Caraballo, RN) 0831 [...] Sofia Buckner RN)1852 (Given - Provider: Mike Leon RN) 0450 (Given - Provider: Emily Byrne RN) [...] for use. 1012 (Given - Provider: Linda Valadez RN)1132 (Given - Provider: Linda Valadez RN)1213 (Given - Provider: Linda Valadez RN) labetaloL (NORMODYNE,TRANDATE) injection 20 mg (CANCELED) 20 mg, intravenous, Every 10 min PRN, high blood pressure, Starting on Mon05/16/25 at 2256, For systolic blood pressure greater than 140 mmHg, give first, hold for HR <60; can give up to 3 times per hour Look-alike/sound-alike medication - verify indication for use. 0245 (Given - Provider: Emily Byrne RN)0300 (Canceled Entry - Provider: Emily Byrne RN)0400 (Given - Provider: Emily Byrne RN)0500 (Canceled Entry - Provider: Emily Byrne RN)0530 (Given - Provider: Emily Byrne RN)0630 (Given - Provider: Emily Byrne RN)1517 (Given - Provider: Mike Leon, VERONICA)1704 (Given - Provider: Mike Leon RN)2105 (Given - Provider: Emily Byrne RN)2220 (Given - Provider: Emily Byrne RN)2230 (Given - Provider: Emily Byrne RN)2315 (Given - Provider: Emily Byrne RN)2325 (Given - Provider: Emily Byrne RN) [...] Give with a full glass of water. FOR RECORDS PERTAINING TO PATIENTS WHO ARE [...] ON THE PRIMARY CLINICAL RECORDS. [facility]. provides no warranty or guarantee of the accuracy or completeness of information in this document.
--- NOTE | 2025-05-29 08:06 | CT_ITS ---
The [address] [address] Patient Name: SON STROUD MRN: [id number] date: 1940 Sex: F Assigned Patient Location: CT Current Patient Location: CT Accession/Order Number: [id number] Exam Date: 05/29/2025 07:59 Report Date: 05/29/2025 09:53 At the request of: ROLAND KUAR Procedure: CT head/brain wo con CT BRAIN WITHOUT CONTRAST: CLINICAL HISTORY: Follow-up intracranial hemorrhage and skull fracture. Recent fall. COMPARISON: 05/16/2025 TECHNIQUE: Contiguous axial unenhanced images were obtained through the brain. This CT exam was performed using one or more following dose reduction techniques: Automated exposure control, adjustment of the mA and/or kV according to patient size, or use of iterative reconstruction technique. FINDINGS: There is generalized atrophy. The ventricles are normal in size and position. Minor microvascular changes are noted. No residual intracranial hemorrhage is identified however there is still hypodensity at the anterior inferior left frontal lobe that may be residual edema. There are no new areas of abnormal attenuation or intracranial hemorrhage. No significant mass effect or extra-axial collections are seen. The imaged paranasal sinuses and mastoid air cells are clear. There is vertebral artery and carotid siphon plaque. A nondisplaced right occipital skull fracture is again seen. CT/CT head/brain wo con IMPRESSION: AGE-RELATED CHANGES. RESOLUTION OF INTRACRANIAL HEMORRHAGE. RESIDUAL LEFT FRONTAL HYPODENSITY THAT MAY BE EDEMA. STABLE RIGHT OCCIPITAL SKULL FRACTURE. Impression dictated by: Tonia Bah M.D. 05/29/2025 9:53 AM Dictation Location: [employer] Electronically authenticated by: [id number] Y Date: 05/29/2025 09:53
== END 2025-05-29 07:51 | disposition home or self-care (01) ==
LOC: CT 07:50
PROVIDERS: PCP Family Medicine; Visit Provider Nurse Practitioner
DX: I61.9 Nontraumatic intracerebral hemorrhage, unspecified (principal)
CPT/HCPCS: 70450

== ENCOUNTER 2025-08-19 13:37 | Outpatient (OUT) | payer MEDICARE, OTHER, SELFPAY ==
--- OUTSIDE RECORDS SUMMARY | 2025-08-12 15:00 | XMS_ITS | Encounter Summary ---
Author Organization [facility] Address [address] [place] [address] Care Team Providers Care Press Shop Supervisor Name Role Phone Helen Medina MD Primary Care Provider [phone] Helen Medina MD Unavailable Reason for Referral * Imaging (Routine) - AuthorizedSpecialtyDiagnoses / ProceduresReferred By ContactReferred To ContactRadiology Diagnoses Cerebrospinal rhinorrhea Procedures CT head w and wo IV contrast Helen Medina MD [address] [facility] [address] [place] [address] Phone: tel: fax: [facility] [address] [facility] [address] [place] [address] Phone: tel: fax: Referral IDStatusReasonStart DateExpiration DateVisits RequestedVisits [id number]/18/20255/ Reason for Visit * ReasonCommentsSinusitis Encounter Details DateTypeDepartmentCare Team (Latest Contact Info)Vhhcoghkemi02/18/2025 3:00 PM ESTOffice Visit [facility] [place] [facility] [address] [place] [id number] Helen Medina MD [address] [facility] [address] [place], [place] [id number] Cerebrospinal rhinorrhea (Primary Dx) Social History Tobacco UseTypesPacks/DayYears UsedDateSmoking Tobacco: NeverSmokeless Tobacco: NeverAlcohol UseStandard Drinks/WeekCommentsNever0 (1 standard drink = 0.6 oz pure alcohol)PHQ-2AnswerDate RecordedPatient Health Questionnaire-2 Score0 08/12/2025CommentsUnknownSex and Gender InformationValueDate RecordedSex Assigned at BirthNot on fileLegal KpiSjixxn07/15/2023 7:24 PM EDTGender Identity Not on fileSexual OrientationNot on filedocumented as of this encounter Last Filed Vital Signs Vital SignReadingTime TakenCommentsBlood Pyqvigdx724/7808/12/2025 2:53 PM EST Swchx868108/12/2025 2:53 PM ESTTemperature--Respiratory Rate--Oxygen Unxgwckdtt76% 08/12/2025 2:53 PM ESTInhaled Oxygen Concentration--Sliomt05 kg (139 lb) 08/12/2025 2:53 PM PNEKlmpvm067.4 cm (5' 5.5 )08/12/2025 2:53 PM ESTBody Mass Index22.7808/12/2025 2:53 PM ESTdocumented in this encounter Functional Status * Over the past 2 weeks, how often have you been bothered by any of the following problems?QuestionAnswerDate of AssessmentAuthorLittle interest or pleasure in doing thingsNot at all08/12/2025 7:31 AM Yareli Spence MA Feeling down, depressed, or hopelessNot at all08/12/2025 7:31 AM Yareli Spence MAPatient Health Questionnaire-2 Tutmh90910/12/2024 7:31 AM Yareli Spence MA documented as of this encounter Progress Notes * Helen Medina MD - 08/12/2025 3:02 PM ESTAssociated Problem(s): Cerebrospinal rhinorrhea Has had a previous Skill Fracture Patient was on Antibitics with no relief Neurology appointment in September CT scan ordered D/W patient risk for Brain infection * Helen Medina MD - 08/12/2025 3:00 PM EST Images from the original note were not included. Subjective Patient ID: Mei Guardado is a 85 y.o. female who presents for Sinusitis. Pt is going to see neurology oct 23 Pt is still stuffed up, runny nose blowing nose all the time, coughing a lot, no sore throat no fever Pt has had two different abx , not helping Sinusitis This is a chronic problem. The current episode started in the past 7 days. The problem is unchanged. There has been no fever. The fever has been present for 5 days or more. The pain is moderate. Associated symptoms include headaches. Past treatments include antibiotics. The treatment provided no relief. Over the past 2 weeks, how often have you been bothered by any of the following problems? Little interest or pleasure in doing things: Not at all Feeling down, depressed, or hopeless: Not at all Patient Health Questionnaire-2 Score: 0 Current Outpatient Medications on File Prior to Visit Medication Sig Dispense Refill acetaminophen (Tylenol) 500 MG tablet Take 1,000 mg by mouth every 6 (six) hours if needed for mildpain hydrocortisone 2.5 % cream Apply topically 2 (two) times a day as needed (Rash) Apply thin layer toaffected areas bid prn for flares 30 g 3 loratadine (Claritin) 10 MG tablet Take 10 mg by mouth Daily metoprolol tartrate (Lopressor) 50 MG tablet TAKE 1 TABLET TWICE DAILY WITH FOOD 200 tablet 3 Propylene Glycol (Systane Balance) 0.6 % solution Administer into affected eye(s) in the morning and before bedtime. Senexon-S 8.6-50 MG tablet Take 2 tablets by mouth Daily [DISCONTINUED] predniSONE (Deltasone) 10 MG tablet Take 4 tablets (40 mg) by mouth Daily for 4 days, THEN 3 tablets (30 mg) Daily for 4 days, THEN 2 tablets (20 mg) Daily for 4 days, THEN 1 tablet (10 mg) Daily for 4 days. 40 tablet 0 No current facility-administered medications on file prior [...] Vitals Smoking Status Never Review of Systems HENT: Positive for rhinorrhea. Neurological: Positive for headaches. Objective Physical Exam Constitutional: General: She is not in acute distress. Appearance: Normal appearance. HENT: Head: Normocephalic. Nose: Nose normal. Eyes: Pupils: Pupils are equal, round, and reactive to light. Cardiovascular: Rate and Rhythm: Normal rate and regular rhythm. Pulmonary: Effort: Pulmonary effort is normal. No respiratory distress. Breath sounds: Normal breath sounds. Neurological: General: No focal deficit present. Mental Status: She is alert and oriented to person, place, and time. Cranial Nerves: No cranial nerve deficit. Motor: No weakness. Psychiatric: Mood and Affect: Mood normal. Assessment/Plan Problem List Items Addressed This Visit Cerebrospinal rhinorrhea - Primary Has had a previous Skill Fracture Patient was on Antibitics with no relief Neurology appointment in September CT scan ordered D/W patient risk for Brain infection Relevant Orders CT head w and wo IV contrast Creatinine, Serum No follow-ups on file. documented in this encounter Miscellaneous Notes * Addendum Note - Helen Medina MD - 08/12/2025 3:00 PM ESTAddended by: HLEEN MEDINA on: 08/12/2025 03:08 PM Modules accepted: Orders documented in this encounter Plan of Treatment DateTypeDepartmentCare Team (Latest Contact Info)Fpaicbwnsxg19/01/2025 9:30 AM ESTOffice Visit [facility] [address] [facility] [address] [place] [address] Helen Medina MD [address] [facility] [address] [place] [address] 11/18/2025 9:20 AM ESTOffice Visit [facility] [place] [facility] [address] [facility] [address] [place] [address] Toyin Zuleta, COUNSELING SERVICES DIRECTOR-PLUMBER'S HELPER [address] [facility] [address] [place] [address] NameTypePriorityAssociated DiagnosesOrder ScheduleCT head w and wo IV contrast ImagingRoutine Cerebrospinal rhinorrhea Expected: 08/12/2025, Expires: 08/12/2026reatinine, SerumLabRoutine Cerebrospinal rhinorrhea Expected: 08/12/2025 (Approximate), Expires: 08/12/2026documented as of this encounter Visit Diagnoses Diagnosis Cerebrospinal rhinorrhea- Primary Cerebrospinal fluid rhinorrhea documented in this encounter Additional Health Concerns AssessmentNoted TimePHQ-9 Depression Total Score: 8:00 AM EDT documented as of this encounter Care Teams Team MemberRelationshipSpecialtyStart DateEnd Date Helen Medina MD [address] [facility] [address] [place] [address] PCP - GeneralFamily Medicine02/16/23 Helen Medina MD [address] [facility] [address] [place] [address] PCP - ACO Reach01/24/24documented as of this encounter
--- OUTSIDE RECORDS SUMMARY | 2025-08-19 13:44 | XMS_ITS | Encounter Summary ---
Author Organization [facility] Address [address] [place] [address] Care Team Providers Care Active Directory Systems Administrator Name Role Phone Helen Alicea MD Primary Care Provider [phone] Helen Alicea MD Unavailable Encounter Details DateTypeDepartmentCare Team (Latest Contact Info)Vysouwfzmow28/18/2025Travel Social History Tobacco UseTypesPacks/DayYears UsedDateSmoking Tobacco: NeverSmokeless Tobacco: NeverAlcohol UseStandard Drinks/WeekCommentsNever0 (1 standard drink = 0.6 oz pure alcohol)PHQ-2AnswerDate RecordedPatient Health Questionnaire-2 Score0 08/12/2025CommentsUnknownSex and Gender InformationValueDate RecordedSex Assigned at BirthNot on fileLegal CosFmkffn31/15/2023 7:24 PM EDTGender Identity Not on fileSexual OrientationNot on filedocumented as of this encounter Functional Status * Over the past 2 weeks, how often have you been bothered by any of the following problems?QuestionAnswerDate of AssessmentAuthorLittle interest or pleasure in doing thingsNot at all08/12/2025 7:31 AM Yareli Spence MA Feeling down, depressed, or hopelessNot at all08/12/2025 7:31 AM Yareli Spence MAPatient Health Questionnaire-2 Alhqc62610/12/2024 7:31 AM Yareli Spence MA documented as of this encounter Plan of Treatment DateTypeDepartmentCare Team (Latest Contact Info)Mbjnhyvuokk74/01/2025 9:30 AM ESTOffice Visit [facility] [address] [place] [address] Helen Alicea MD [address] [place] [address] 11/18/2025 9:20 AM ESTOffice Visit [facility] [address] [place] [address] Toyin Zuleta APRN-[employer] [address] [place] [address] documented as of this encounter Visit Diagnoses Not on filedocumented in this encounter Additional Health Concerns AssessmentNoted TimePHQ-9 Depression Total Score: 8:00 AM EDT documented as of this encounter Care Teams Team MemberRelationshipSpecialtyStart DateEnd Date Helen Alicea MD [address] [place] [address] PCP - GeneralFamily Medicine02/16/23 Helen Alicea MD [address] [place] [address] PCP - [facility]01/24/24documented as of this encounter
--- OUTSIDE RECORDS SUMMARY | 2025-08-19 13:44 | XMS_ITS | Clinical Summary ---
Author Organization [facility] tem Address [id number] [address] [place] [address] Care Team Providers Care Division Merchandise Manager Name Role Phone Helen Alicea MD Primary Care Provider [phone] Allergies No known active allergies Medications MedicationSigDispense QuantityRefillsLast FilledStart DateEnd DateStatus metoprolol tartrate (LOPRESSOR) 50 mg tablet Take 1 tablet (50 mg total) by mouth in the morning and 1 tablet (50 mg total) before bedtime.4Active propylene glycol (SYSTANE COMPLETE OPHT) Instill 1 drop to eye daily as needed.Active acetaminophen (TYLENOL EXTRA STRENGTH) 500 mg tablet Take 2 tablets (1,000 mg total) by mouth every 6 (six) hours as needed for headaches.5Active loratadine (CLARITIN) 10 mg tablet Take 1 tablet (10 mg total) by mouth in the morning.5Active sennosides-docusate sodium (SENOKOT-S) 8.6-50 mg Take 2 tablets by mouth nightly.5Active Active Problems ProblemNoted DateDiagnosed DateFall at home, initial vltyivnox08/26/2025losed fracture of right side of base of skull05/20/2025Primary nqqincnunxhg55/26/2025 Traumatic ydzedsoxtvonup54/26/2025ICH (intracerebral hemorrhage)05/16/2025 Encounters DateTypeDepartmentCare NewwMhdafeywgwb99/22/2025 10:17 PM EDT - 05/20/2025 4:15 PM EDTHospital Encounter [facility] [address] [facility] [address] [place] [address] Jd Pires MD Benson, Daniel W, MD ICH (intracerebral hemorrhage) ([facility]) (Primary Dx) Discharge Disposition: [facility]-Medicare Certfrom Last 3 Months Immunizations ImmunizationAdministration DatesNext DueCovid-19, Mrna, Lnp-s, Pf,marci- sucrose,30 Mcg/0.3ml Gupknixr03/19/2023Influenza High Dose Preservative Free IM 06/02/2024,06/04/2018,05/23/2017,08/01/2013Influenza Vaccine, Quadrivalent, Trwsrytvzn22/05/2023Influenza, High-dose, Wfuujppurliw07/27/2022,05/18/2021 Influenza, Injectable, Tdrqahvsewvb86/05/2016Pneumococcal Conjugate 13-Valent 09/08/2014Pneumococcal Cgzgpsdzkdhlam14/17/2018,04/10/2018RSV, recombinant, protein subunit RSVpreF, adjuvant reconstituted, 0.5 mL, PF09/08/2023Tdap 05/16/2025,06/06/2023Zoster Live09/08/2012,03/30/2011Zoster Vaccine Recombinant 09/09/2018,04/20/2018 Social History Tobacco UseTypesPacks/DayYears UsedDateSmoking Tobacco: NeverSmokeless Tobacco: Never Tobacco Cessation:Counseling Given: Not Answered Alcohol UseStandard Drinks/WeekCommentsNot Currently0 (1 standard drink = 0.6 oz pure alcohol)[facility] UtilitiesAnswerDate RecordedIn the past 12 months has the electric, gas, oil, or water company threatened to shut off services in your home?No05/19/2025UDIT-CAnswerDate RecordedQ1: How often do you have a drink containing alcohol?Patient imdtkqgv16/25/2025Q2: How many drinks containing alcohol do you have on a typical day when you are drinking?Patient does not drink05/19/2025Q3: How often do you have six or more drinks on one occasion? Never05/19/2025Overall Financial Resource Strain (CARDIA)AnswerDate RecordedHow hard is it for you to pay for the very basics like food, housing, medical care, and heating?Not hard at all05/17/2025PHQ-2AnswerDate RecordedTotal Score1 05/19/2025PRAPARE - TransportationAnswerDate RecordedIn the past 12 months, has lack of transportation kept you from medical appointments or from getting medications?No05/19/2025In the past 12 months, has lack of transportation kept you from meetings, work, or from getting things needed for daily living?No 05/19/2025Housing InstabilityAnswerDate RecordedAre you worried or concerned that in the next two months you may not have stable housing that you own, rent or stay in as a part of a household?No05/19/2025hildcareAnswerDate Recorded EktkjggixMxnevaj24/12/2019EmploymentAnswerDate RecordedEmploymentUnknown 03/06/2019Hunger ScreeningAnswerDate RecordedWithin the past 12 months we worried whether our food would run out before we got money to buy more.Never True05/19/2025Within the past 12 months the food we bought just didn't last and we didn't have money to get more.Never True05/19/2025CommentsNoSex and Gender InformationValueDate RecordedSex Assigned at BirthNot on fileLegal Sex Aguwyi1104/30/2015 12:07 PM EDTGender IdentityNot on fileSexual OrientationNot on file Last Filed Vital Signs Vital SignReadingTime TakenCommentsBlood Vorurydm680/6808 1:44 PM EDT Hyspn863005/20/2025 1:44 PM NCSHmzwlrorqly32.6 ??C (97.9 ??F)05/20/2025 7:16 AM EDTRespiratory Qxlg449805/20/2025 1:44 PM EDTOxygen Bnsojrbbxq41%05/20/2025 1:44 PM EDTInhaled Oxygen Concentration--Cpkxnh57.3 kg (168 lb 3.4 oz)05/19/2025 1:00 AM DQBZaufqp986.6 cm (5' 6 )05/17/2025 1:20 AM EDTBody Mass Index27.15005/17/2025 1:20 AM EDT Plan of Treatment Health MaintenanceDue DateLast DoneCommentsFall Risk Sravsysft02/01/2003COVID-19 Vaccine ( season)509/04/2024, 06/13/2023, 06/13/2023, Additional history existsInfluenza Mfckafl85/04/2024, 05/30/2023, 05/21/2022, Additional history existsDepression Kzaqfccio05/ Tobacco Stxnnhfus89DTaP,Tdap and Td Vaccines (3 - Td or Tdap) , 06/06/2023Zoster (Shingles) SlvgagoWcxmwhpvo57/16/2018, 04/20/2018, 09/08/2012, Additional history existsRSV ( or age 60+ yrs) Lmqjhipku00/15/2023 Goals GoalPatient Goal TypeAssociated ProblemsRecent ProgressPatient-Stated?Author discharge Mable Osorio, RN Note: Evaluation of progress towards goal: Safe discharge from hospital Medical Devices Not on file Procedures Procedure NamePriorityDate/TimeAssociated DiagnosisCommentsDNR PHYSICIAN ORDER REPORT (SCANNED INTO EHR)05/29/2025 6:53 AM EDT EXTRA TUBES LAVENDER XJTDpwfdhk03/26/2025 7:54 AM EDT EXTRA VPHSDAgucmkr09/26/2025 7:54 AM EDT MYOGLOBIN, WDSBHTfqzhjc43/26/2025 6:57 AM EDT CK PYETUPyoeofk67/26/2025 6:57 AM EDT BASIC METABOLIC UZENTDxbuhyh36/26/2025 6:57 AM EDT GQANLCWPSZwdqrif24/25/2025 10:21 AM EDT MYOGLOBIN, VLYMUUwazdzk13/25/2025 3:24 AM EDT CK AUATRIiqujig11/25/2025 3:24 AM EDT CBC WITH AUTO RNSZQDGYIINGErpnpjy75/25/2025 3:24 AM EDT BASIC METABOLIC GISVQIltobky48/25/2025 3:24 AM EDT from Last 3 Months Results * DNR Physician Order Report (Scanned Into EHR) (05/29/2025 6:53 AM EDT) Narrative 05/29/2025 6:53 AM EDT Ordered by an unspecified provider. Authorizing ProviderResult TypeResult StatusNot In System Ref ProvOUTPATIENT REFERRAL ORDERABLESFinal Result * Lavender Top (05/20/2025 7:54 AM EDT)ComponentValueRef RangeTest Method Analysis TimePerformed AtPathologist SignatureExtra TubeAuto Resulted 05/20/2025 9:01 AM [facility] LABORATORYSpecimen (Source) Anatomical Location / LateralityCollection Method / VolumeCollection Time Received TimeBloodVenous blood / Yakxmfd4105/20/2025 7:54 AM EDT05/20/2025 7:54 AM EDT Narrative Authorizing ProviderResult TypeResult StatusDachayo MORALES BLOOD ORDERABLESFinal ResultPerforming OrganizationAddressCity/State/ZIP CodePhone Number [facility] [address] [place] [address], * (ABNORMAL) Myoglobin, serum (05/20/2025 6:57 AM EDT) Only the most recent of2 resultswithin the time period is included. ComponentValueRef RangeTest MethodAnalysis TimePerformed AtPathologist Signature SERUM UAJOQCFTJ55.3(H)14.3 - 65.8 ng/mL05/20/2025 8:13 AM [facility] LABORATORYSpecimen (Source)Anatomical Location / LateralityCollection Method / VolumeCollection TimeReceived TimeBloodVenous blood / Unknown Venipuncture / Sdhharb4105/20/2025 6:57 AM EDT05/20/2025 7:38 AM EDT Narrative Authorizing ProviderResult TypeResult StatusSabrina Tilley PA-CLAB BLOOD ORDERABLESFinal ResultPerforming OrganizationAddressty/State/ZIP CodePhone Number [facility] [address] [place] [address], * (ABNORMAL) CK Total (05/20/2025 6:57 AM EDT) Only the most recent of2 resultswithin the time period is included. ComponentValueRef RangeTest MethodAnalysis TimePerformed AtPathologist Signature FTI831(H)24 - 170 U/L05/20/2025 8:13 AM [facility] Specimen (Source)Anatomical Location / LateralityCollection Method / Volume Collection TimeReceived TimeBloodVenous blood / UnknownVenipuncture / Unknown 05/20/2025 6:57 AM EDT05/20/2025 7:38 AM EDT Narrative Authorizing ProviderResult TypeResult StatusSabrina Tilley PA-CLAB BLOOD ORDERABLESFinal ResultPerforming OrganizationAddressty/State/ZIP CodePhone Number [facility] [address] [place] [address], * (ABNORMAL) Basic Metabolic Panel (05/20/2025 6:57 AM EDT) Only the most recent of2 resultswithin the time period is included. ComponentValueRef RangeTest MethodAnalysis TimePerformed AtPathologist Signature HDQXMD747091 - 146 mmol/L05/20/2025 8:13 AM [facility] LABORATORYPOTASSIUM3.83.5 - 5.0 mmol/L05/20/2025 8:13 AM [facility] KDBPBWDBSXVETDULOC184(H)98 - 109 mmol/L05/20/2025 8:13 AM [facility] LABORATORYCARBON MBMGPDS56(L)22 - 32 mmol/L05/20/2025 8:13 AM [facility] LABORATORYANION GAP95 - 15 mmol/L05/20/2025 8:13 AM [facility] LABORATORYBLOOD UREA MUGLFWDN773 - 27 mg/dL 05/20/2025 8:13 AM [facility] LABORATORYCREATININE0.520.40 - 1.00 mg/dL05/20/2025 8:13 AM [facility] LABORATORYComment: METHOD TRACEABLE TO IDMS XCXSLJURMRGZYDU7417 - 99 mg/dL05/20/2025 8:13 AM EDT [facility] LABORATORYCALCIUM7.6(L)8.5 - 10.5 mg/dL05/20/2025 8:13 AM [facility]ORATORYEGFR Non-Race Yrirrgtva02>=60 ml/min/1.73sq.m005/20/2025 8:13 AM [facility] LABORATORYComment: Reported eGFR is based on the CKD-EPI 2020 equation that does not use a race coefficient. EGFR not calculated due to patient's gender not being defined. Specimen (Source)Anatomical Location / LateralityCollection Method / Volume Collection TimeReceived TimeBloodVenous blood / UnknownVenipuncture / Unknown 05/20/2025 6:57 AM EDT05/20/2025 7:38 AM EDT Narrative Authorizing ProviderResult TypeResult StatusMary Lowe PLUMBER'S HELPER-CNPLAB BLOOD ORDERABLESFinal ResultPerforming OrganizationAddressCity/State/ZIP CodePhone Number [facility] [address] [place] [address], * Potassium (05/19/2025 10:21 AM EDT)ComponentValueRef RangeTest MethodAnalysis TimePerformed AtPathologist SignaturePOTASSIUM4.23.5 - 5.0 mmol/L05/19/2025 11:23 AM [facility] LABORATORYSpecimen (Source)Anatomical Location / LateralityCollection Method / VolumeCollection TimeReceived Time BloodVenous blood / UnknownVenipuncture / Enaihqr2405/19/2025 10:21 AM EDT 05/19/2025 10:48 AM EDT Narrative Authorizing ProviderResult TypeResult StatusBashar R Kahook PLUMBER'S HELPER-CNPLAB BLOOD ORDERABLESFinal ResultPerforming OrganizationAddressCity/State/ZIP CodePhone Number [facility] [address] [place] [address], * (ABNORMAL) CBC auto differential (05/19/2025 3:24 AM EDT)ComponentValueRef RangeTest MethodAnalysis TimePerformed AtPathologist SignatureWBC9.94 - 11 x10E9/L05/19/2025 4:14 AM [facility] LABORATORYRBC Count3.35 (L)3.8 - 5.2 X10E12/L05/19/2025 4:14 AM [facility] Chzriodjsk80.3(L)11.7 - 15.5 g/dL05/19/2025 4:14 AM [facility] EZCRDQMBATEiojdrhydg02.8(L)35 - 47 %05/19/2025 4:14 AM [facility] SEXDUOTFUDKMP4314 - 100 fL05/19/2025 4:14 AM [facility] RGQZCIHYVDGIK30.727 - 34 pg05/19/2025 4:14 AM [facility] SVCGDWQLWVZQCG89.432 - 36 g/dL05/19/2025 4:14 AM [facility] OUUQYYXZINCZZ74.211.5 - 15 %05/19/2025 4:14 AM [facility] LABORATORYPlatelet Kmreh446(L)150 - 450 X10E9/L05/19/2025 4:14 AM [facility] QWAVRYERHYWZU32.17 - 12 fL05/19/2025 4:14 AM [facility] LABORATORYNeutrophils %83.9%05/19/2025 4:14 AM [facility] LABORATORYLymphocytes %9.5%05/19/2025 4:14 AM EDT [facility]ORYMonocytes %5.8%05/19/2025 4:14 AM [facility] LABORATORYEosinophils %0.4%05/19/2025 4:14 AM [facility] LABORATORYBasophils %0.4%05/19/2025 4:14 AM [facility] LABORATORYNeutrophils Absolute (A)8.3(H)1.5 - 6.6 10*3/uL 05/19/2025 4:14 AM [facility] LABORATORYLymphocytes Absolute 0.9(L)1.0 - 3.5 10*3/uL05/19/2025 4:14 AM [facility] LABORATORYMonocytes Absolute0.60.0 - 0.9 10*3/uL05/19/2025 4:14 AM [facility] LABORATORYEosinophils Absolute0.00.0 - 0.4 10*3/05/19/2025 4:14 AM [facility] LABORATORYBasophils Absolute0.00.0 - 0.2 10*3/05/19/2025 4:14 AM [facility] LABORATORYDifferential TypeAUTOMATED WNZSVCNYFASO19/25/2025 4:14 AM [facility] LABORATORYSpecimen (Source)Anatomical Location / LateralityCollection Method / VolumeCollection TimeReceived TimeBloodVenous blood / UnknownVenipuncture / Vcvzfwv1605/19/2025 3:24 AM EDT05/19/2025 4:00 AM EDT Narrative Authorizing ProviderResult TypeResult StatusMary Lowe PLUMBER'S HELPER-CNPLAB BLOOD ORDERABLESFinal ResultPerforming OrganizationAddressCity/State/ZIP CodePhone Number [facility] [address] [place] [address], from Last 3 Months Insurance Advance Directives TypeDate RecordedPatient RepresentativeExplanationLiving Will05/29/2025 11:47 AM Durable Power of Attorney05/29/2025 6:55 AMDNR Physician Order05/29/2025 6:53 AM * DNR Comfort Care Arrest (DNR-CCA) [place] (Latest Code Status on File) Date ActivatedDate InactivatedComments05/16/2025 10:57 PM05/20/2025 6:16 PM * Full Code Date ActivatedDate InactivatedComments05/16/2025 10:42 PM05/16/2025 10:57 PM Care Teams Team MemberRelationshipSpecialtyStart DateEnd Date Helen Alicea MD [facility] [place] [address] PCP - GeneralFamily Medicine05/17/25
--- OUTSIDE RECORDS SUMMARY | 2025-08-19 13:44 | XMS_ITS | Clinical Summary ---
Author Organization [facility] Healthcare Address [address] [place] [address] Care Team Providers Care Math Tutor Name Role Phone Helen Medina MD Primary Care Provider [phone] Helen Medina MD Unavailable Allergies Active AllergyReactionsCriticalityNoted AbftNcfdylfpAetid30/24/2023 Other Reaction(s): Unknown Pollen KanfpmfZllgBmk93/25/2023 Medications MedicationSigDispense QuantityRefillsLast FilledStart DateEnd DateStatus hydrocortisone 2.5 % cream Indications:Other seborrheic dermatitisApply topically 2 (two) times a day as needed (Rash) Apply thin layer to affected areas bid prn forflares 30 g ctive metoprolol tartrate (Lopressor) 50 MG tablet Indications:Benign essential hypertensionTAKE 1 TABLET TWICE DAILY WITH FOOD 200 tablet ctive acetaminophen (Tylenol) 500 MG tablet Take 1,000 mg by mouth every 6 (six) hours if needed for mild painActive loratadine (Claritin) 10 MG tablet Take 10 mg by mouth DailyActive Propylene Glycol (Systane Balance) 0.6 % solution Administer into affected eye(s) in the morning and before bedtime.Active Senexon-S 8.6-50 MG tablet Take 2 tablets by mouth DailyActive amoxicillin (Amoxil) 500 MG capsule Indications:Cerebrospinal rhinorrheaTake 1 capsule (500 mg) by mouth Daily 30 capsule 5Active cefuroxime (Ceftin) 500 MG tablet Indications:Acute non-recurrent sinusitis, unspecified locationTake 0.5 tablets (250 mg) by mouth in the morning and 0.5 tablets (250 mg) before bedtime. Do all this for 10 days. 10 tablet /Discontinued(Other) cefuroxime (Ceftin) 500 MG tablet Indications:Acute non-recurrent sinusitis, unspecified locationTake 0.5 tablets (250 mg) by mouth in the morning and 0.5 tablets (250 mg) before bedtime. Do all this for 10 days. 10 tablet /05/2025Expired predniSONE (Deltasone) 10 MG tablet Indications:Chronic sinusitis, unspecified locationTake 4 tablets (40 mg) by mouth Daily for 4 days, THEN 3 tablets (30 mg) Daily for 4 days, THEN 2 tablets (20 mg) Daily for 4 days, THEN 1 tablet (10 mg) Daily for 4 days. 40 tablet Discontinued(Other) Active Problems ProblemNoted DateDiagnosed DateChronic ziupbdeht93/30/2025 Assessment & Plan (07/24/2025 1:47 PM EDT): Antbx called in again Add Probiotic to help replenish the good bacteria that are destroyed by the Antibiotics Florastor Florajen Align or try Activia in Yogurt Probiotics reduce the risk of antibiotic induced diarrhea May need CT scan Cannot completely ruleout CSF leak Acute non-recurrent tvqoyuwqb24/30/2025erebrospinal bbltvhiqnl21/30/2025 Assessment & Plan (08/12/2025 3:02 PM EST): Has had a previous Skill Fracture Patient was on Antibitics with no relief Neurology appointment in September CT scan ordered D/W patient risk for Brain infection Assessment & Plan (07/24/2025 1:51 PM EDT): Referral made to Neurology Closed fracture of right side of base of skull05/20/2025 Assessment & Plan (06/30/2025 2:36 PM EDT): Stable from CT scan Calcium and Vitamin D Fall at home, initial ubmwevozh76/26/2025 Assessment & Plan (06/30/2025 2:35 PM EDT): Has been doing PT and no longer using walker Etiology uncertain as cause. No evidence of CVA, No IN and no Tumor Needs a life alert Consider camera Traumatic oycxjftqideeqf79/26/2025Intracranial ixxmgjcghc50/22/2025 Assessment & Plan (07/24/2025 1:48 PM EDT): Had fall and skull fracture with bleed and distorted vision Has constant rhinorrhea Again, discussed could be related to traumatic skull fracture Assessment & Plan (06/30/2025 2:40 PM EDT): Resolved as per CT scan May Drive during the day only short distances and low speeds Folic Acid and B12 May need Neurology Repeat CT scan in August Acute seasonal allergic rhinitis due to orueij5503/13/2023llergic conjunctivitis of both eyes03/13/2023enign essential sgdylhnfttzl64/19/2023 Assessment & Plan (06/30/2025 2:43 PM EDT): Our specific goals, for your hypertension, is to keep your blood pressure less than 140/90, and theimportance of weight control. We made recommendations on how to control your blood pressure, and minimize your risk of these copmplications. We also discussed your current barriers to a healthy living and importance of healthy diet and exercise. Prior to your visit today we have reviewed your chart and formed a plan to assist with providing you the best possible care. We reviewed the possible complications of hypertension including, stroke, heart failure and kidney impairment. In addition, we discussed your medications, the importance of taking them as prescribed. DASH diet handouts Cervical esbgbmvzeii76/19/1800Gapqtwxlqshnan16/19/2023Hypercholesterolemia 03/13/2023 Assessment & Plan (06/20/2023 9:34 AM EDT): Patient had elevated HDL and LDL Given age, risk for IN is elevated. Patient is past the usual age for treatment, but given no previous events options were given. Encouraged Exercise, low fat diet and Fish Oils. Should an event occur like an IN or CVA she would need to be on cholesterol medicine Vwbqyvoopzw52/19/2023Macular degeneration of both eyes03/13/2023Obstructive sleep apnea nfljncbi69/19/1461Jmfjawuhuadt67/19/0715Vjalyjp99/19/2023 Encounters DateTypeDepartmentCare GnzsWljmkbpicka78/18/2025 3:00 PM ESTOffice Visit [facility] [place] [facility] [address] [facility] [address] [place] [address] Helen Medina MD Cerebrospinal rhinorrhea (Primary Dx)08/12/20257859Bmdlxy40/10/2025bstract [facility] [place] [facility] [address] [facility] [address] [place] [address] Helen Medina MD 07/24/2025 1:30 PM EDTOffice Visit [facility] [place] [facility] [address] [facility] [address] [place] [address] Helen Medina MD Chronic sinusitis, unspecified location (Primary Dx); Intracranial hemorrhage (HCC); Acute non-recurrent sinusitis, unspecified location; Cerebrospinal eqlddxauqh70/30/6021Ztmree77/28/2025bstract [facility] [place] [facility] [address] [facility] [address] [place] [address] Helen Medina MD 07/16/2025Patient Outreach [facility] [place] [address] [place] [address] Claudia Burr, CADD TECHNICIAN 07/16/2025bstract [facility] [place] [facility] [address] [facility] [address] [place] [address] Helen Medina MD 07/14/2025Telephone [facility] [place] [facility] [address] [facility] [address] [place] [address] Helen Medina MD Med Rzjoub1207/11/2025Patient Outreach [facility] [place] [address] [place] [address] Claudia Burr, CADD TECHNICIAN 07/04/2025Patient Outreach [facility] [address] [place] [place] [address] Claudia Burr LPN 07/02/2025bstract [facility] [place] [facility] [address] [facility] [address] [place] [address] Helen Medina MD 07/01/2025bstract [facility] [place] [facility] [address] [facility] [address] [place] [address] Helen Medina MD 07/01/2025bstract [facility] [place] [facility] [address] [facility] [address] [place] [address] Helen Medina MD 06/30/2025 2:00 PM EDTOffice Visit [facility] [place] [facility] [address] [facility] [address] [place] [address] Helen Medina MD Fall at home, initial encounter (Primary Dx); 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, unspecified laterality, subsequent encounter; Closed fracture of right side of base of skull with routine healing, subsequent encounter; Benign essential jyxgvhfslish29/06/2025amboo flowsheet [facility] [place] [facility] [address] [facility] [address] [place] [address] Helen Mdeina MD 06/30/20252237Usigox34/03/2025Patient Outreach [facility] [employer] [facility] [place] [address] Claudia Burr, MEGAN 06/24/2025bstract [facility] [place] [facility] [address] [facility] [address] [place] [address] Helen Medina MD 06/18/2025 2:30 PM EDTOffice Visit [facility] [place] [facility] [address] [facility] [address] [place] [address] Tonia Cazares, ALIX 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 of 6 hours to 24 hours, unspecified laterality, sequela (Primary Dx); Closed fracture of right side of base of skull, sequela; Acute seasonal allergic rhinitis due to pollen; Fall, sequela; Need for influenza vaccination; Decreased appetite; Benign essential pgmdetncpyrv18/24/2025amboo flowsheet [facility] [address] [facility] [address] [place] [address] Tonia Cazares PA 06/18/20251511Dsoqqf74/23/2025bstract [facility] [address] [facility] [address] [place] [address] Helen Medina MD 06/17/2025bstract [facility] [address] [facility] [address] [place] [address] Helen Medina MD 06/16/2025Patient Outreach [facility] [address] [place] [place] [address] Claudia Burr LPN 06/10/2025bstract [facility] [address] [facility] [address] [place] [address] Helen Medina MD 06/06/2025Patient Outreach [facility] [address] [place] [place] [address] Claudia Burr LPN 05/30/2025Patient Outreach [facility] [address] [place] [place] [address] Claudia Burr, MEGAN 05/29/2025linisync Result Encounter NOMS External Department Unsolicited Provider, Generic External Data 05/22/2025Patient Outreach [facility] [address] [place] [place] [address] Claudia Burr, MEGAN from Last 3 Months Immunizations ImmunizationAdministration DatesNext DueInfluenza, High Dose Seasonal, Preservative Free06/18/2025,06/02/2024,06/04/2018,05/23/2017,08/01/2013 Influenza, High-dose Seasonal, Quadrivalent, Preservative Free05/21/2022, 05/18/2021Influenza, Seasonal, Quadrivalent, Pwlfwrqcye85/05/2023Influenza, injectable, wttdvvtajwwz66/05/2016Moderna Bivalent Booster Fkiomemheaa99/09/2022 Pfizer Purple Cap SARS-CoV-2 Hsnzgmvdtqx30/19/2023neumococcal Conjugate PCV 13 09/08/2014Pneumococcal Polysaccharide KDDP4805,04/10/2018RSV, recombinant, protein subunit RSVpreF, adjuvant reconstitu, 120mcg/0.5mL, PF (Arexvy)09/08/20233939CKVV-QDQ-8 (COVID-19) vaccine, mRNA, spike protein, LNP, bivalent, PF06/03/2022Tdap05/16/2025,06/06/2023Zoster, Lsgcaefldfa65/16/2018, 04/20/2018Zoster, live09/08/2012,03/30/2011 Family History * Patient is adopted Medical HistoryRelationNameCommentsMelanomaNeg HxRelationNameStatusComments FatherDeceasedMotherDeceasedOther 1DeceasedspouseOther 2no children Social History Tobacco UseTypesPacks/DayYears UsedDateSmoking Tobacco: NeverSmokeless Tobacco: Never Tobacco Cessation:Counseling Given: Yes Alcohol UseStandard Drinks/WeekCommentsNever0 (1 standard drink = 0.6 oz pure alcohol)PHQ-2AnswerDate RecordedPatient Health Questionnaire-2 Wfiqu93810/12/2024 CommentsUnknownSex and Gender InformationValueDate RecordedSex Assigned at BirthNot on fileLegal HevBlrciw16/15/2023 7:24 PM EDTGender IdentityNot on fileSexual OrientationNot on file Last Filed Vital Signs Vital SignReadingTime TakenCommentsBlood Qfsocgre444/7811 2:53 PM EST Bjpzq376408/12/2025 2:53 PM ISOOujoensoolm39.5 ??C (97.7 ??F)01/06/2025 9:37 AM EDTRespiratory Pouz784006/18/2025 2:32 PM EDTOxygen Asweqjjxcl65%08/12/2025 2:53 PM ESTInhaled Oxygen Concentration--Bsivay66 kg (139 lb)08/12/2025 2:53 PM EST Gjootr140.4 cm (5' 5.5 )08/12/2025 2:53 PM ESTBody Mass Index22.7808/12/2025 2:53 PM EST Plan of Treatment DateTypeDepartmentCare Team (Latest Contact Info)Mfkjvbkprwx12/01/2025 9:30 AM ESTOffice Visit [facility] [address] [facility] [address] [place] [address] Helen Medina MD [address] [facility] [address] [place] [address] 11/18/2025 9:20 AM ESTOffice Visit [facility] [address] [facility] [address] [place] [address] Toyin Zuleta APRN-VIDEO COORDINATOR [address] [facility] [address] [place] [address] Health MaintenanceDue DateLast DoneCommentsCOVID-19 Vaccine ( season) 5006/02/2024, 06/13/2023, 06/13/2023, Additional history existsMedicare Annual Wellness (AWV)5111/13/2023, 06/06/2023, 2Pneumococcal Vaccine: 65+ NohhbDxjcdsrhd14/17/2018, 04/10/2018, 09/08/2014Influenza Vaccine Gdeolhxjb11/24/2025, 06/02/2024, 05/30/2023, Additional history exists Procedures Procedure NamePriorityDate/TimeAssociated DiagnosisCommentsCT HEAD/BRAIN WO 05/29/2025 9:53 AM EDT from Last 3 Months Results * CT HEAD/BRAIN WO (05/29/2025 9:53 AM EDT)Anatomical RegionLateralityModality Radiographic ImagingSpecimen (Source)Anatomical Location / Laterality Collection Method / VolumeCollection TimeReceived Time05/29/2025 9:53 AM EDT Narrative 05/29/2025 9:56 AM EDT [facility] ?[address] ? [place] [address] ? CT Scan Report ? Signed ? Patient: STROUD,MEI L ? MR#: [id number] ?? : 1940 ?Acct:[id number] ?? Age/Sex: 85 / F ?ADM Date: 05/29/ ?? Loc: CT ? Attending Dr: ROLAND KAUR ? Ordering Physician: ROLAND KAUR ?? Date of Service: 05/29/25 ?? Procedure(s): CT head/brain wo con ?? Accession Number(s): [id number] ? cc: HELEN MEDINA ? [facility] ? [address] ? [place] [address] ? Patient Name: ?? MEI STROUD ? MRN: [facility]:[id number] ? date: 1940 ?Sex: F ?? Assigned Patient Location: CT ?? Current Patient Location: CT ?? Accession/Order Number: [id number] ?? Exam Date: 05/29/2025 ??07:59 ?Report Date: 05/29/2025 ??09:53 ? At the request of: ?? ROLAND KAUR ? Procedure: ??CT head/brain wo con ? CT BRAIN WITHOUT CONTRAST: ? CLINICAL HISTORY: Follow-up intracranial hemorrhage and skull fracture. ? Recent fall. ? COMPARISON: 05/16/2025 ? TECHNIQUE: Contiguous axial unenhanced images were obtained through the brain. ?? This CT exam was performed using one or more following dose reduction ?? techniques: Automated exposure control, adjustment of the mA and/or kV ?? according to patient size, or use of iterative reconstruction technique. ? FINDINGS: There is generalized atrophy. ??The ventricles are normal in size and ?? position. ??Minor microvascular changes are noted. ??No residual intracranial ?? hemorrhage is identified however there is still hypodensity at the anterior ?? inferior left frontal lobe that may be residual edema. ??There are no new areas ?? of abnormal attenuation or intracranial hemorrhage. ??No significant mass ?? effect or extra-axial collections are seen. ??The imaged paranasal sinuses and ?? mastoid air cells are clear. ??There is vertebral artery and carotid siphon ?? plaque. ??A nondisplaced right occipital skull fracture is again seen. ? CT/CT head/brain wo con ?? IMPRESSION: ? AGE-RELATED CHANGES. ? RESOLUTION OF INTRACRANIAL HEMORRHAGE. ? RESIDUAL LEFT FRONTAL HYPODENSITY THAT MAY BE EDEMA. ? STABLE RIGHT OCCIPITAL SKULL FRACTURE. ? Impression dictated by: Tonia Bah M.D. ??05/29/2025 9:53 AM ? Dictation Location: [facility]--30 ? Electronically authenticated by: [id number] ??Y ?? Date: 05/29/2025 ??09:53 ? Dictated By: ?Tonia Bah M.D. ? Signed By: ?05/29/25 09 ? DD/ 0953 ? TD/TT: ? Orientation & Mobility Specialist: Procedure Note Radiology, Radiologist, MD - 05/29/[address] [place] [id number] Scan Report Signed Patient: MEI STROUD LMR#: [id number] : 1940cct:[id number] Age/Sex: 85 / FADM Date: 05/29/25 Loc: CT Attending Dr: ROLAND KAUR Ordering Physician: ROLAND KAUR Date of Service: 05/29/25 Procedure(s): CT head/brain wo con Accession Number(s): [id number] cc: HELEN MEDNIA [facility] [place] [id number] Patient Name: MEI STROUD MRN: [id number] date: 1940 Sex: F Assigned Patient Location: CT Current Patient Location: CT Accession/Order Number: [id number] Exam Date: 05/29/2025 07:59 Report Date: 05/29/2025 09:53 At the request of: ROLAND KAUR Procedure: CT head/brain wo con CT BRAIN WITHOUT CONTRAST: CLINICAL HISTORY: Follow-up intracranial hemorrhage and skull fracture. Recent fall. COMPARISON: 05/16/2025 TECHNIQUE: Contiguous axial unenhanced images were obtained through thebrain. This CT exam was performed using one or more following dose reduction techniques: Automated exposure control, adjustment of the mA and/or kV according to patient size, or use of iterative reconstruction technique. FINDINGS: There is generalized atrophy. The ventricles are normal in sizeand position. Minor microvascular changes are noted. No residualintracranial hemorrhage is identified however there is still hypodensity at theanterior inferior left frontal lobe that may be residual edema. There are no newareas of abnormal attenuation or intracranial hemorrhage. No significant mass effect or extra-axial collections are seen. The imaged paranasal sinusesand mastoid air cells are clear. There is vertebral artery and carotid siphon plaque. A nondisplaced right occipital skull fracture is again seen. CT/CT head/brain wo con IMPRESSION: AGE-RELATED CHANGES. RESOLUTION OF INTRACRANIAL HEMORRHAGE. RESIDUAL LEFT FRONTAL HYPODENSITY THAT MAY BE EDEMA. STABLE RIGHT OCCIPITAL SKULL FRACTURE. Impression dictated by: Tonia Bah M.D. 05/29/2025 9:53 AM Dictation Location: [place] [address] Electronically authenticated by: [id number] Y Date: 9:53 Dictated By: Tonia Bah M.D. Signed By:05/29/25 0956 DD/ 0953 TD/TT: Orientation & Mobility Specialist: Authorizing ProviderResult TypeResult StatusGeneric External Data ProviderIMG XR PROCEDURESFinal Result from Last 3 Months Insurance Care Teams Team MemberRelationshipSpecialtyStart DateEnd Date Helen Medina MD [address] [facility] [address] [place] [address] [facility] - [facility] Helen Medina MD [address] [facility] [address] [place] [address] PCP - ACO [facility]01/24/24
--- OUTSIDE RECORDS SUMMARY | 2025-08-19 13:44 | XMS_ITS | Clinical Summary ---
Author Organization [facility] Address [address] [place] [address] Care Team Providers Care Flash Drier Operator Name Role Phone Helen Alicea MD Primary Care Provider [phone] Allergies No known active allergies Social History Tobacco UseTypesPacks/DayYears UsedDateSmoking Tobacco: Never Assessed CommentsUnknownSex and Gender InformationValueDate RecordedSex Assigned at Not on fileLegal PzjJqouic86/23/2016 1:10 PM EDTGender IdentityNot on fileSexual OrientationNot on file Plan of Treatment Not on file Insurance Care Teams Team MemberRelationshipSpecialtyStart DateEnd Date Helen Alicea MD [address] [facility] [address] [place] [id number] [facility] - [facility]17/16
--- OUTSIDE RECORDS SUMMARY | 2025-08-19 13:49 | XMS_ITS | CCD ---
Author Organization [facility] Care Team Providers Care Geodetic Surveyor Technologist Name Role Phone ADAM, DR PACKER Primary Care Unavailable ADAM, DR PACKER Admitting Unavailable ADAM, DR PACKER Attending Unavailable ADAM, DR PACKER Consulting Unavailable ZIEBER, DR BRISA Pedro Consulting Unavailable ADAM, DR PACKER Primary Care Unavailable HEMMER, DR BUCK Arzola Attending Unavailable HEMMER, DR BUCK Arzola Consulting Unavailable HEMMER, DR BUCK Arzola Admitting Unavailable ADAM, DR PACKER Primary Care Unavailable JAZZY HUTCHINS Attending Unavailable LISET, JAZZY Admitting Unavailable DELPHOS, DR MOISES Triana Consulting Unavailable LISET, JAZZY Consulting Unavailable Shannon Dotson Unavailable Ochoa Medina MD Primary Care Provider [phone] Ochoa Medina MD Unavailable Ochoa Medina MD Unavailable Sage Hall DO Attending Provider [phone] Sage Hall Attending Unavailable Sage Hall Admitting Unavailable Ochoa Medina MD Primary Care Provider [phone] PCP, NOT IN SYSTEM Primary Care Unavailable [...] PCP, NOT IN SYSTEM Primary Care Unavailable Ochoa Medina MD Unavailable OCHOA MEDINA Attending Unavailable OCHOA MEDINA Attending Unavailable BUCK FLORES Attending Unavailable HEMBUCK HERNÁNDEZ Attending Unavailable FELTER, ONOFRE A Attending Unavailable DHARA RODRIGUEZ Referring Unavailable DHARA RODRIGUEZ Attending Unavailable BUCK FLORES Attending Unavailable BUCK FLORES Attending Unavailable JAZZY HUTCHINS Attending Unavailable BUCK FLORES Attending Unavailable NEENA LOVE Attending Unavailable Allergies Allergy ClassificationReported Allergen(s)Allergy TypeDate of OnsetReaction(s) Facility (20 sources)PollenAllergy to ejdumtcyo70-53-3007ZclvDMQ[facility] (20 sources)OtherPropensity to adverse nafyogffh15-18-0632AB[facility] Medications Current Medications MedicationDrug Class(es)DatesSig (Normalized)Sig (Original)acetaminophen 500 mg oral tablet (12 sources)Start: 04-46-7443misd 2 tablets by mouth every six hours as needed for headacheacetaminophen (TYLENOL EXTRA STRENGTH) 500 mg tablet Take 2 tablets (1,000 mg total) by mouth every6 (six) hours as needed for headaches. 05/20/2025 ActiveStart: 05-19-2025 End: 86-76-8885vwww 1 tablet by mouth every six hours as needed for pain and fever and headache and pain1,000 mg, oral, Every 6 hours PRN, mild pain - pain scale 1-3, temperature greater than 38 C, headaches, moderate pain - pain scale 4-6, Starting on 05/19/25 at 0822Start: 05-17-2025 End: 82-37-8040kzwv 1000 mg intravenously every six hours1,000 mg, intravenous, at 400 mL/hr, Administer over 15 Minutes, Every 6 hours, First dose on Sat at 1715, For 24 hoursalendronic acid 70 mg oral tablet (20 sources)BisphosphonateStart: 05-93-1870wivxxqdofms (Fosamax) 70 MG tablet Indications: Age-related osteoporosis without current pathological fracture TAKE 1 TAB 30 MIN BEFORE FIRST FOOD/BEVERAGE/MEDICINE OF THE DAY WITH PLAIN WATER ONCE AWEEK 12 tablet 3 08/14/2023 Activeamoxicillin 875 mg / clavulanate 125 mg oral tablet (6 sources)Penicillin-class AntibacterialStart: 01-06-2025 End: 82-06-8957hpoj 1 tablet by mouth in the morningamoxicillin-clavulanate (Augmentin) 875-125 MG tablet Indications: Acute non-recurrent ethmoidal sin usitis Take 1 tablet (875 mg) by mouth in the morning and 1 tablet (875 mg) in the evening. Take with meals. Do all this for 7 days. 14 tablet 01/06/2025 01/13/2025 ActiveStart: 08-06-2024 End: 38-65-2846mkpa 1 tablet by mouth in the morningamoxicillin-clavulanate (Augmentin) 875-125 MG tablet Indications: Acute non-recurrent pansinusitisTake 1 tablet (875 mg) by mouth in the morning and 1 tablet (875 mg) before bedtime. Do all this for 10 days. 20 tablet 08/06/2024 08/16/2024 ActiveStart: 11-07-2023 End: 40-89-6578opxg 1 tablet by mouth in the morningamoxicillin-clavulanate (Augmentin) 875-125 MG tablet Indications: Acute recurrent frontal sinusitis Take 1 tablet (875 mg) by mouth in the morning and 1 tablet (875 mg) in the evening. Take with meals. Do all this for 10 days. 20 tablet 0 11/07/2023 11/17/2023 Activeascorbic acid 60 mg / cuprous oxide 2 mg / dl-alpha tocopheryl acetate 30 mg / lutein 6 mg / zinc oxide 15 mg oral capsule (8 sources)Vitamin CMultiple Vitamins-Minerals (Eye Vitamins) capsule Orally ActiveAspirin (1 source)Platelet Aggregation Inhibitor, Nonsteroidal Anti-inflammatory Drug Baby Aspirin Activeazelastine hydrochloride 0.137 mg/actuat metered dose nasal spray (20 sources)Histamine-1 Receptor AntagonistStart: 13-69-5407cpcg 1 spray(s) nasal route in the morningazelastine (Astelin) 0.1 % nasal spray Administer 1 spray into each nostril in the morning and 1 spray before bedtime. 01/18/2023 Activecefdinir 300 mg oral capsule (10 sources)Cephalosporin AntibacterialStart: 09-04-2024 End: 49-10-7171qebw 1 capsule by mouth in the morningcefdinir (Omnicef) 300 MG capsule Indications: Acute frontal sinusitis, recurrence not specified Take 1 capsule (300 mg) by mouth in the morning and 1 capsule (300 mg) before bedtime. Do all this for10 days. 20 capsule 09/04/2024 09/14/2024 Activecefuroxime 500 mg oral tablet (4 sources)Cephalosporin AntibacterialStart: 07-14-2025 End: 05-71-1449xhof 0.5 tablet by mouth in the morningcefuroxime (Ceftin) 500 MG tablet Indications: Acute non-recurrent sinusitis, unspecified location Take 0.5 tablets (250 mg) by mouth in the morning and 0.5 tablets (250 mg) before bedtime. Do all this for 10 days. 10 tablet 07/24/2025 08/03/2025 Active cetirizine hydrochloride 10 mg oral tablet (20 sources)Histamine-1 Receptor Antagonisttake 1 tablet by mouth in the morning cetirizine (ZyrTEC) 10 MG tablet Take 10 mg by mouth in the morning. Active ciprofloxacin 500 mg oral tablet (8 sources)Quinolone AntimicrobialStart: 06-03-2024 End: 95-94-5913tmcg 1 tablet by mouth in the morningciprofloxacin (Cipro) 500 MG tablet Indications: Onycholysis due to Pseudomonas infection Take 1 tablet (500 mg) by mouth in the morning and 1 tablet (500 mg) before bedtime. Do all this for 14 days.28 tablet 06/03/2024 06/17/2024 Discontinued (Therapy completed) Start: 05-14-2024 End: 60-09-8436turw 1 tablet by mouth in the morningciprofloxacin (Cipro) 500 MG tablet Indications: Onycholysis due to Pseudomonas infection Take 1 tablet (500 mg) by mouth in the morning and 1 tablet (500 mg) before bedtime. Do all this for 10 days.20 tablet 05/14/2024 05/24/2024 Activecodeine phosphate 2 mg/ml / guaiFENesin 20 mg/ml oral solution (1 source)Opioid AgonistStart: 94-25-0174bmyo 10 mL by mouth every four to six hours as neededguaiFENesin AC 100-10 MG/5ML 10 ml as needed Orally every 4-6 hrs Dec, Activecromolyn sodium 40 mg/ml ophthalmic solution (20 sources)Mast Cell StabilizerStart: 22-70-7783xaquwhdp (Opticrom) 4 % ophthalmic solution Indications: Allergic conjunctivitis of both eyes Administer 1 drop into both eyes in the morning and 1 drop at noon and 1 drop in the evening and 1 drop before bedtime. 30 mL 3 09/12/2024 ActiveStart: 03-05-2024 End: 92-54-7809iwek 1 drop(s) into the eye(s) four times dailycromolyn (Opticrom) 4 % ophthalmic solution Indications: Unspecified macular degeneration INSTILL 1DROP INTO AFFECTED EYE 4 TIMES DAILY 30 mL 1 03/05/2024 09/12/2024 Discontinued (Reorder)Start: 21-73-7524lqek 1 drop(s) into the eye(s) four times dailycromolyn (Opticrom) 4 % ophthalmic solution Indications: Unspecified macular degeneration INSTILL 1DROP INTO AFFECTED EYE 4 TIMES DAILY 30 mL 1 05/24/2023 Activedocusate sodium 50 mg / sennosides, skilled nursing 8.6 mg oral tablet (10 sources)Start: 05-16-2025 End: 42-80-5148kcmn 2 tablets by mouth once dailysennosides-docusate sodium (SENOKOT-S) 8.6-50 mg Take 2 tablets by mouth nightly. 05/20/2025 Active fluticasone propionate 0.05 mg/actuat metered dose nasal spray (5 sources)Corticosteroidtake 1 spray(s) nasal route once dailyfluticasone (Flonase) 50 MCG/ACT nasal spray Administer 1 spray into each nostril Daily Shake gently. Before first use, prime pump. After use, clean tip and replace cap. Activehydrocortisone 25 mg/ml topical cream (20 sources)CorticosteroidStart: 89-94-0464dhsgpyvrynmkoz 2.5 % cream Indications: Other seborrheic dermatitis Apply topically 2 (two) times aday as needed (Rash) Apply thin layer to affected areas bid prn for flares 30 g 3 11/14/2023 Activehydrocortisone 2.5 % cream every 12 (twelve) hours. 0 Active levETIRAcetam 500 mg oral tablet (3 sources)Start: 05-20-2025 End: 91-94-6351ssjf 1 tablet by mouth oncelevETIRAcetam (KEPPRA) 500 mg tablet Take 1 tablet (500 mg total) by mouth every 12 (twelve) hours for 3 days. 05/20/2025 05/23/2025 ActiveStart: 05-16-2025 End: ,000 mg, intravenous, at 400 mL/hr, Administer over 15 Minutes, Once, On Mon05/16/25 at 2225, For 1 dose, Look-alike/sound-alike medication - verify indication for use.loratadine 10 mg oral tablet (11 sources)Start: 90-07-4223kbyl 1 tablet by mouth in the morningloratadine (CLARITIN) 10 mg tablet Take 1 tablet (10 mg total) by mouth in the morning. 05/21/2025 ActiveStart: 30-77-0919fxki 1 tablet by mouth in the morning loratadine (CLARITIN) 10 mg tablet Take 1 tablet (10 mg total) by mouth in the morning. 05/21/2025Start: 05-19-2025 End: 97-66-1988yrbb 10 mg by mouth once daily10 mg, oral, Daily, First dose on Mon05/19/25 at 1230, Look-alike/sound-alike medication - verify indication for use.metoprolol tartrate 50 mg oral tablet (20 sources)beta-Adrenergic BlockerStart: 06-05-2024 End: 05-02-2086wgoggnbeyc tartrate (Lopressor) 50 MG tablet Indications: Benign essential hypertension TAKE 1 TABLET TWICE DAILY WITH FOOD 200 tablet 3 06/05/2024 ActiveStart: 06-84-1949ytjgexiikn tartrate (Lopressor) 50 MG tablet Indications: Benign essential hypertension (CMS/HCC) TAKE 1 TABLET TWICE DAILY WITH FOOD 200 tablet 3 03/05/2024 ActiveStart: 07-74-6095akvpkmjuwg tartrate (Lopressor) 50 MG tablet Indications: Benign essential hypertension (CMS/HCC) TA KE 1 TABLET TWICE DAILY WITH FOOD 200 tablet 3 09/27/2023 ActiveMetoprolol Tartrate ActiveMultiple Vitamins-Minerals (Eye Vitamins) capsule (20 sources)Multiple Vitamins-Minerals (Eye Vitamins) capsule Orally Active Multiple Vitamins-Minerals (Eye Vitamins) capsule Orally 0 ActivepredniSONE 10 mg oral tablet (2 sources)Start: 07-24-2025 End: 95-66-1065gnmu 4 tablets by mouth once daily, then take 3 tablets by mouth once daily, then take 2 tablets bymouth once daily, then take 1 tablet by mouth once dailypredniSONE (Deltasone) 10 MG tablet Indications: Chronic sinusitis, unspecified location Take 4 tablets (40 mg) by mouth Daily for 4 days, THEN 3 tablets (30 mg) Daily for 4 days, THEN 2 tablets (20 mg) Daily for 4 days, THEN 1 tablet (10 mg) Daily for 4 days. 40 tablet 07/24/2025 08/09/2025 Active propylene glycol 6 mg/ml ophthalmic solution (10 sources)Propylene Glycol (Systane Balance) 0.6 % solution Administer into affected eye(s) in the morning and before bedtime. Activetake 1 drop(s) into the eye(s) once daily as neededpropylene glycol (SYSTANE COMPLETE OPHT) Instill 1 drop to eye daily as needed. Activetake 1 drop(s) into the eye(s) once daily as neededpropylene glycol (SYSTANE COMPLETE OPHT) Instill 1 drop to eye daily as needed. Completed/Discontinued Medications MedicationDrug Class(es)DatesSig (Normalized)Sig (Original)aflibercept (EYLEA HD) 8 mg/0.07 mL injection (1 source) End: 11-35-2189nkuwbjgvlnt (EYLEA HD) 8 mg/0.07 mL injection 0.07 mL (8 mg total) by intravitreal route every 3 (three) months. 05/20/2025 Discontinued (Stop Taking at Discharge)ampicillin-sulbactam (UNASYN) 3,000 mg in sodium chloride 0.9 % 100 mL IVPB W/ADAPTER (1 source)Start: 05-17-2025 End: 01-20-4950sxpx 3000 mg intravenously every six hours3,000 mg, intravenous, at 200 mL/hr, Administer over 30 Minutes, Every 6 hours, First dose on Sat at 1715, For 5 days, For Vial-2-Bag: Attach bag and vial to adapter - Use immediately after activating; dissolve drug prior to administration., Indication: Aspiration pneumoniaCalcium Gluconate (1 source)Start: 05-16-2025 End: 20-67-0201zycdvkf gluconate IVPB 1000 mg/50 mL (20 mg/mL premix)carvedilol 12.5 mg oral tablet (1 source)alpha-Adrenergic Korey, beta-Adrenergic BlockerStart: 05-19-2025 End: 77-70-9263kakz 12.5 mg by mouth twice daily12.5 mg, oral, 2 times daily, First dose on Mon05/19/25 at 0900, Give with meal or snack. Look-alike/sound- alike medication - verify indication for use.doxycycline monohydrate 100 mg oral capsule (1 source)Tetracycline-class DrugStart: 68-51-7053qtzu 1 capsule by mouth every twelve hoursDoxycycline Monohydrate 100 mg 1 capsule Orally bid for 10 day(s) Dec, Not-Taking0.3 ml enoxaparin sodium 100 mg/ml prefilled syringe (1 source)Low Molecular Weight HeparinStart: 05-18-2025 End: 65-88-5900vteyah 30 mg by subcutaneous injection every twelve hours30 mg, subcutaneous, Every 12 hours, First dose on Mon05/18/25 at 1800, Look-alike/sound-alike medication - verify indication for use.glucagon (rdna) 1 mg injection (1 source)Antihypoglycemic AgentStart: 05-16-2025 End: 79-27-8146597 ml glucose 50 mg/ml injection (3 sources)Start: 05-16-2025 End: 55-82-3319Ngtov: 05-16-2025 End: 35-72-5466Jpocn: 05-16-2025 End: ml hydrALAZINE hydrochloride 20 mg/ml injection (2 sources)Arteriolar VasodilatorStart: 05-16-2025 End: 25-08-2764dqye 10 mg intravenously every six hours as xtnygh16 mg, intravenous, Every 6 hours PRN, high blood pressure, SBP>140 and HR4 ml labetalol hydrochloride 5 mg/ml cartridge (2 sources)beta-Adrenergic BlockerStart: 05-19-2025 End: 36-52-406786 mg, intravenous, Every 10 min PRN, high blood pressure, SBP >140 and HR >60. MAX of 3 doses per hour., Starting on Mon05/19/25 at 0820, Look-alike/sound-alike medication - verify indication for use.Start: 05-16-2025 End: 35-48-574350 mg, intravenous, Every 10 min PRN, high blood pressure, Starting on Mon05/16/25 at 2256, For systolic blood pressure greater than 140 mmHg, give first, hold for HRlevETIRAcetam (KEPPRA) IVPB 500 mg/100 mL in iso- osmotic sodium chloride (5 mg/mL premix) (1 source)Start: 05-17-2025 End: 75-01-1793akqQMFUStmebb (KEPPRA) IVPB 500 mg/100 mL in iso-osmotic sodium chloride (5 mg/mL premix)lisinopril 10 mg oral tablet (3 sources)Angiotensin Converting Enzyme Inhibitor End: 51-02-5468aieq 1 tablet by mouth once dailylisinopril 10 MG tablet Take 10 mg by mouth Daily 06/18/2025 Discontinued (Therapy completed)magnesium sulfate IVPB 2000 mg/50 mL in iso-osmotic water (40 mg/mL premix) (1 source)Start: 05-16-2025 End: 47-68-5442wvbnznbqz sulfate IVPB 2000 mg/50 mL in iso-osmotic water (40 mg/mL premix)2 ml ondansetron 2 mg/ml injection (1 source)Serotonin-3 Receptor AntagonistStart: 05-16-2025 End: 05-66-2333rimi 4 mg intravenously every six hours as needed for nausea pantoprazole 40 mg injection (1 source)Proton Pump InhibitorStart: 05-17-2025 End: 42-65-380042 mg, intravenous, Every morning before breakfast, First dose on Mon05/17/25 at 0700, Look-alike/sound-alike medication - verify indication for use., Indication: Other (CARLOS), Please specify: Stress Ulcer Prophylaxis polyethylene glycol 3350 03957 mg powder for oral solution (1 source)Osmotic LaxativeStart: 05-16-2025 End: 53-99-4600Gvytclxyi Chloride (1 source)Start: 05-16-2025 End: 47-45-0566igewbnzik chloride (K-TAB,KLOR-CON) CR tablet 20-40 mEqpotassium chloride IVPB 10 mEq/50 mL in water (0.2 mEq/mL premix) (1 source)Start: 05-16-2025 End: 15-67-1595rxfmjyfkz chloride IVPB 10 mEq/50 mL in water (0.2 mEq/mL premix) 1000 ml sodium chloride 9 mg/ml injection (4 sources)Start: 05-16-2025 End: ,000 mL, intravenous, at 500 mL/hr, Administer over 2 Hours, Once, On Mon05/16/25 at 2300, For 1 doseStart: 05-16-2025 End: mL, intravenous, Every 12 hours scheduled, First dose on Mon05/16/25 at 2255Start: 05-16-2025 End: 73-14-0517ajvq 100 mL intravenously every dmxn777 mL/hr, intravenous, Continuous, Starting on Mon05/16/25 at 2255, For 1 dayStart: 05-16-2025 End: 61-07-8813cxhpsq phosphate 20 mmol in sodium chloride 0.9 % 250 mL IVPB (1 source)Start: 05-16-2025 End: 62-02-0208ztanbx phosphate 20 mmol in sodium chloride 0.9 % 250 mL IVPB1 ml triamcinolone acetonide 40 mg/ml prefilled syringe (4 sources)CorticosteroidStart: 08-06-2024 End: 27-53-5533qwsstvbrxping acetonide (Kenalog-40) injection 40 mgStart: 08-06-2024 End: 35-44-4663buimzo 40 mg by intramuscular injection once40 mg, Intramuscular, Once, On Mon08/06/24 at 1100, For 1 doseStart: 08-06-2024 End: 46-90-4665bshqnebzekvvs acetonide (Kenalog-40) injection 40 mgStart: 08-06-2024 End: 32-99-5848kwxcuy 40 mg by intramuscular injection once40 mg, Intramuscular, Once, On Mon08/06/24 at 1100, For 1 dose Problems Active Problems Problem ClassificationProblemDateDocumented DateEpisodic/ChronicAcute cerebrovascular disease (20 sources)Cerebral hemorrhage; Translations: [Nontraumatic intracerebral hemorrhage, unspecified]Onset: 310150-62-8676QzgwvrsUgebohgymrhtei/social admission (2 sources)Patient encounter status; Translations: [Other specified counseling] 17-81-7310DkyaxpuiDozmqwdtw of lipid metabolism (20 sources)Hypercholesterolemia; Translations: [Pure hypercholesterolemia, unspecified]Onset: 957415-03-7613ItovaavGuqtfbqlbqbofd and diverticulitis (20 sources)Diverticular disease; Translations: [Diverticulosis of intestine, part unspecified, without perforation or abscess without bleeding]Onset: 722365-39-0256DmixvusN Codes: Fall (17 sources)Fall; Translations: [Unspecified fall, initial encounter]Onset: 109813-34-6154AjwdrjpgXqypjhuzv hypertension (20 sources)Benign essential hypertension; Translations: [Essential (primary) hypertension]Onset: 284605-10-0696CscfquwZcdgolxwvstas and screening for infectious disease (3 sources)Contact with and (suspected) exposure to other viral communicable diseases; Translations: [Requiresinfluenza virus vaccination]Onset: 07-15-2021 Resolved: 32-34-7446UbsmpgtnHdonvtjksubs injury (6 sources)Intracranial hemorrhage following injury with loss of consciousness; Translations: [Traumatic hemorrhage of cerebrum, unspecified, with loss of consciousness of 6 hours to 24 hours, sequela]45-72-9304JyvhugkkFcejluhfcabr (20 sources)Age-related osteoporosis without current pathological fracture; Translations: [Osteoporosis]Onset: 247673-63-9018XfbfsjtFafmc and unspecified benign neoplasm (2 sources)Melanocytic nevus of trunk; Translations: [Melanocytic nevi of trunk] 04-23-4572BaddhtjbItflv and unspecified benign neoplasm (2 sources)Melanocytic nevus of left upper limb; Translations: [Melanocytic nevi of left upper limb, includingshoulder]58-08-1240RniddisaCctbi and unspecified benign neoplasm (2 sources)Melanocytic nevus of right upper limb; Translations: [Melanocytic nevi of right upper limb, including shoulder]94-44-9697CrrwyzmmBlvxn and unspecified benign neoplasm (2 sources)Neurofibroma; 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, unspecified]77-47-1002HdfngiabEotjr injuries and conditions due to external causes (11 sources)Traumatic rhabdomyolysis; Translations: [Traumatic ischemia of muscle, initial encounter]Onset: 854812-59-0538JagdzkvyHfgrf injuries and conditions due to external causes (1 source)Injury of headOnset: 83-44-8831LbqowzfrNttzg lower respiratory disease (2 sources)Rib pain; Translations: [Pleurodynia]50-81-2376BqfauossPppvo nervous system disorders (8 sources)Cerebrospinal fluid rhinorrhea; Translations: [Cerebrospinal rhinorrhea]Onset: 628164-36-6138BfbolkphJtigd nutritional; endocrine; and metabolic disorders (2 sources)Decrease in appetite; Translations: [Anorexia]59-88-5719IfscocppKkafe screening for suspected conditions (not mental disorders or infectious disease) (4 sources)Encounter for screening mammogram for malignant neoplasm of breast; Translations: [ENC SCR MAMMO MALIG NEOPLASM BREAST]Onset: 80-47-1216Ckaxkayg Other skin disorders (8 sources)Onycholysis; Translations: [Onycholysis]10-32-2365PmkynfwbMrujw skin disorders (2 sources)Seborrheic keratosis; Translations: [Other seborrheic keratosis] 67-18-6289IloiarnkHvrpq skin disorders (2 sources)Actinic keratosis; Translations: [Actinic keratosis]11-18-2024 EpisodicOther skin disorders (2 sources)Sebaceous hyperplasia; Translations: [Other specified follicular disorders]32-13-4875ScosjbkrCmjbd upper respiratory disease (20 sources)Allergic rhinitis due to pollen; Translations: [Allergic rhinitis due to pollen]Onset: 067227-82-6355TfdxfzpDmemc upper respiratory disease (4 sources)Nasal congestion; Translations: [NASAL CONGESTION]Onset: 03-01-2022 EpisodicOther upper respiratory infections (6 sources)Chronic sinusitis; Translations: [Chronic sinusitis, unspecified] Onset: 818996-53-3449YzxplnjJthlm upper respiratory infections (15 sources)Acute sinusitis; Translations: [Acute sinusitis]Onset: 07-24-2025 61-67-5735NrfhjkhfHfliqbbn codes; unclassified (20 sources)Hypersomnia; Translations: [Hypersomnia, unspecified]Onset: 375872-24-9807MbgmsmwAqsavumr codes; unclassified (20 sources)Obstructive sleep apnea syndrome; Translations: [Obstructive sleep apnea (adult) (pediatric)]Onset: 216325-95-3931JufgxegSosjbpsk codes; unclassified (1 source)Pain, unspecified; Translations: [Pain, unspecified]Onset: 05-16-2025 EpisodicRetinal detachments; defects; vascular occlusion; and retinopathy (20 sources)Bilateral degeneration of macula; 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]Onset: 273591-45-0099GzwptetVduvi and face fractures (15 sources)Closed fracture of base of skull; Translations: [Fracture of base of skull, right side, initial encounter for closed fracture]Onset: 05-20-2025 16-21-0551QebxlmlbPydllvhspgk; intervertebral disc disorders; other back problems (20 sources)Cervical spondylosis; Translations: [Spondylosis without myelopathy or radiculopathy, cervical region]Onset: 045795-73-6324DmiretaVhrskxehfmi injury; contusion (2 sources)Contusion of left front wall of thorax, subsequent encounter; Translations: [Other specified aftercare]39-99-2606QjaydzxsUsseegzdjwre (1 source)CONTACT W/AND (SUSP) EXPOS COVID-19; Translations: [CONTACT W/AND (SUSP) EXPOS COVID-19]Onset: 03-31-8259Rvbifduwmtwl (1 source)Found in bathtub todayOnset: 05-16-2025 Past or Other Problems Problem ClassificationProblemDateDocumented DateEpisodic/ChronicEpilepsy; convulsions (20 sources)Seizure; Translations: [Unspecified convulsions]Onset: 03-13-2023 91-18-7801PhaelhslGhqgdxuukuel; infection of eye (except that caused by tuberculosis or sexually transmitteddisease) (20 sources)Allergic conjunctivitis of bilateral eyes; Translations: [Acute atopic conjunctivitis, bilateral]Onset: 054200-41-6156AobqjmszLodk disorders (20 sources)Mood disordersOnset: 06-06-2023 Resolved: Other bone disease and musculoskeletal deformities (1 source)Other specified disorders of bone density and structure, right thigh; Translations: [OTH D/O BONE DEN STRUCT RT THIGH]Onset: 75-81-9273Wsovdrie Results Test NameValueInterpretationReference RangeFacilityCT HEAD/BRAIN WOon 05-29-[address] [address] [place] Scan Report Signed Patient: MEI GURADADO MR#: [id number] : 1940 Acct:[id number] Age/Sex: 85 / F ADM Date: 05/29/25 Loc: CT Attending Dr: ROLAND KAUR Ordering Physician: ROLAND KAUR Date of Service: 05/29/25 Procedure(s): CT head/brain wo con Accession Number(s): [id number] cc: OCHOA MEDINA [place] [id number] Patient Name: MEI GUARDADO MRN: [id number] date: 1940 Sex: F Assigned Patient Location: CT Current Patient Location: CT Accession/Order Number: [id number] Exam Date: 05/29/2025 07:59 Report Date: 05/29/2025 09:53 At the request of: ROLAND KAUR Procedure: CT head/brain wo con CT BRAIN WITHOUT CONTRAST: CLINICAL HISTORY: Follow-up intracranial hemorrhage and skull fracture. Recent fall. COMPARISON: 05/16/2025 TECHNIQUE: Contiguous axial unenhanced images were obtained through the brain. This CT exam was performed using one or more following dose reduction techniques: Automated exposure control, adjustment of the mA and/or kV according to patient size, or use of iterative reconstruction technique. FINDINGS: There is generalized atrophy. The ventricles are normal in size and position. Minor microvascular changes are noted. No residual intracranial hemorrhage is identified however there is still hypodensity at the anterior inferior left frontal lobe that may be residual edema. There are no new areas of abnormal attenuation or intracranial hemorrhage. No significant mass effect or extra-axial collections are seen. The imaged paranasal sinuses and mastoid air cells are clear. There is vertebral artery and carotid siphon plaque. A nondisplaced right occipital skull fracture is again seen. CT/CT head/brain wo con IMPRESSION: AGE-RELATED CHANGES. RESOLUTION OF INTRACRANIAL HEMORRHAGE. RESIDUAL LEFT FRONTAL HYPODENSITY THAT MAY BE EDEMA. STABLE RIGHT OCCIPITAL SKULL FRACTURE. Impression dictated by: Buck Bah M.D. 05/29/2025 9:53 AM Dictation Location: [place] [address] Electronically authenticated by: [id number] Y Date: 05/29/2025 09:53 Dictated By: Buck Bah M.D. Signed By: 05/29/2556 DD/ 2 TD/TT: Photographic Equipment Assembler:TBHRadiology, Radiologist, - 05/29/2025 [place] [address] CT Scan Report Signed Patient: MEI GUARDADO MR#: [id number] : 1940 Acct:[id number] Age/Sex: 85 / F ADM Date: 05/29/25 Loc: CT Attending Dr: ROLAND KAUR Ordering Physician: ROLAND KAUR Date of Service: 05/29/25 Procedure(s): CT head/brain wo con Accession Number(s): [id number] cc: OCHOA MEDINA [place] [address] Patient Name: MEI GUARDADO MRN: [facility]:[id number] date: 1940 Sex: F Assigned Patient Location: CT Current Patient Location: CT Accession/Order Number: [id number] Exam Date: 05/29/2025 07:59 Report Date: 05/29/2025 09:53 At the request of: ROLAND KAUR Procedure: CT head/brain wo con CT BRAIN WITHOUT CONTRAST: CLINICAL HISTORY: Follow-up intracranial hemorrhage and skull fracture. Recent fall. COMPARISON: 05/16/2025 TECHNIQUE: Contiguous axial unenhanced images were obtained through the brain. This CT exam was performed using one or more following dose reduction techniques: Automated exposure control, adjustment of the mA and/or kV according to patient size, or use of iterative reconstruction technique. FINDINGS: There is generalized atrophy. The ventricles are normal in size and position. Minor microvascular changes are noted. No residual intracranial hemorrhage is identified however there is still hypodensity at the anterior inferior left frontal lobe that may be residual edema. There are no new areas of abnormal attenuation or intracranial hemorrhage. No significant mass effect or extra-axial collections are seen. The imaged paranasal sinuses and mastoid air cells are clear. There is vertebral artery and carotid siphon plaque. A nondisplaced right occipital skull fracture is again seen. CT/CT head/brain wo con IMPRESSION: AGE-RELATED CHANGES. RESOLUTION OF INTRACRANIAL HEMORRHAGE. RESIDUAL LEFT FRONTAL HYPODENSITY THAT MAY BE EDEMA. STABLE RIGHT OCCIPITAL SKULL FRACTURE. Impression dictated by: Buck Bah M.D. 05/29/2025 9:53 AM Dictation Location: [place] [address] Electronically authenticated by: [id number] Y Date: 05/29/2025 09:53 Dictated By: Buck Bah M.D. Signed By: 05/29/25 0956 DD/ 0953 TD/TT: Photographic Equipment Assembler: [facility] HealthcareRadiology Study observation (narrative)[facility] HealthcareCT HEAD/BRAIN WOOrdered By: Radiologist Radiology on [id number] Work Phone: bASIC METABOLIC PANELon 06-14-6976Cxydg gap [Moles/Vol]9 mmol/LNormal5-15Pro[facility] Behavioral Medical CenterComment on above:Performed By: #### FIBR #### [facility] ([facility]) [address] [place] [address] VIRCalcium [Mass/Vol]7.6 mg/dLLow8.5-10.5ProMedica [facility] Behavioral Medical CenterComment on above:Performed By: #### FIBR #### [facility] ([facility]) [address] [place] [address] VIRChloride [Moles/Vol]114 mmol/IGjag98-829NrsMjfzbn [facility] Medical CenterComment on above:Performed By: #### FIBR #### [facility] ([facility]) [address] [place] [address] VIRCO2 [Moles/Vol]20 mmol/YZde07-37EewCsgoqv [facility] Comment on above:Performed By: #### FIBR #### [facility] ([facility]) [address] [place] [address] VIRCreatinine [Mass/Vol]0.52 mg/dLNormal0.40-1.00ProOhiohealth Mansfield Hospitalca Denair HospitalComment on above:Result Comment: METHOD TRACEABLE TO IDMS STANDARDPerformed By: #### FIBR #### [facility] ([facility]) [address] [place] [address] VIRGFR/1.73 sq M.predicted among non-blacks MDRD (S/P/Bld) [Vol rate/Area]90 mL/min/{1.73_m2}Normal>=60ProSelect Medical Specialty Hospital - Columbus SouthComment on above:Result Comment: Reported eGFR is based on the CKD-EPI 2020 equation that does not use a race coefficient. EGFR not calculated due to patient's gender not being defined.Performed By: #### FIBR #### [facility] ([facility]) [address] [place] [address] VIRGlucose [Mass/Vol]93 mg/sNJjoztm33-21ZpiJxyvdw [place] HospitalComment on above:Performed By: #### FIBR #### [facility] ([facility]) [address] [place] [address] VIRPotassium [Moles/Vol]3.8 mmol/LNormal3.5-5.0ProEast [place] [facility] HospitalComment on above:Performed By: #### FIBR #### [facility] ([facility]) [address] [place] [address] VIRSodium [Moles/Vol]143 mmol/UEupdww071-293WvwYhalux [place] HospitalComment on above:Performed By: #### FIBR #### [facility] ([facility]) [address] [place] [address] VIRUrea nitrogen [Mass/Vol]16 mg/dLNormal5-27OhioHealth Doctors HospitalComment on above:Performed By: #### FIBR #### [facility] ([facility]) [address] [place] [address] VIRBasic Metabolic Panelon 57-18-7062Mluqb gap [Moles/Vol]9 mmol/L5 - 15 mmol/LProMedica Health SystemCalcium [Mass/Vol]7.6 mg/dLLow8.5 - 10.5 mg/dLOhioHealth Berger Hospital Health SystemChloride [Moles/Vol]114 mmol/LHigh98 - 109 mmol/LProMedica Health SystemCO2 [Moles/Vol]20 mmol/LLow22 - 32 mmol/LProMedica Health SystemCreatinine [Mass/Vol]0.52 mg/dL0.40 - 1.00 mg/dLMercy Health Lorain Hospital SystemComment on above:METHOD TRACEABLE TO IDMS STANDARDEGFR Non-Race Dependent 90- [facility] SystemComment on above:Reported eGFR is based on the CKD-EPI 2020 equation that does not use a race coefficient. EGFR not calculated due to patient's gender not being defined. Glucose [Mass/Vol]93 mg/dL65 - 99 mg/dLMemorial Health System Marietta Memorial Hospitalca Health SystemPotassium [Moles/Vol]3.8 mmol/L3.5 - 5.0 mmol/LProMedica Health SystemSodium [Moles/Vol] 143 mmol/L134 - 146 mmol/LProMedica Health SystemUrea nitrogen [Mass/Vol]16 mg/dL5 - 27 mg/dLOhioHealth Berger Hospital Health SystemCK TOTALon 24-12-8718XOV243 U/LHigh 24-170OhioHealth Doctors HospitalComment on above:Performed By: #### FIBR #### [facility] ([facility]) [address] [place] [address] VIRCK Totalon 53-05-7557LN [Catalytic activity/Vol]270 U/LHigh 24 - 170 U/[facility] Health SystemLavender Topon 25-75-8501Bdmka TubeAuto ResultedProInfirmary West Health SystemProOhiohealth Dublin Methodist Hospital SystemMYOGLOBIN, SERUMon 74-18-1277MYJKE TGDVYGBLL30.3 ng/dBVkzx16.3-65.8OhioHealth Doctors HospitalComment on above:Performed By: #### FIBR #### [facility] ([facility]) [address] [place] [address] VIRMyoglobin, serumon 64-20-5648Hnyglgswa [Mass/Vol]74.3 ng/mL High14.3 - 65.8 ng/mLLima Memorial HospitalNo Panel Informationon 05-20-2025 Interpretation and review of laboratory resultsAbnormalLima Memorial Hospital ProMAshtabula General HospitalBASIC METABOLIC PANELon 80-86-8495Oprnq gap [Moles/Vol]9 mmol/LNormal5-15OhioHealth Doctors HospitalComment on above:Performed By: #### FIBR #### [facility] ([facility]) [address] [place] [address] VIRCalcium [Mass/Vol]7.9 mg/dLLow8.5-10.5PUpper Valley Medical CenterComment on above:Performed By: #### FIBR #### [facility] ([facility]) [address] [place] [address] VIRChloride [Moles/Vol]115 mmol/JOeqb40-846RwdZujcsaSelect Medical Specialty Hospital - Columbus SouthComment on above:Performed By: #### FIBR #### [facility] ([facility]) [address] [place] [address] VIRCO2 [Moles/Vol]19 mmol/COij80-37BrsAelvkcUpper Valley Medical Center Comment on above:Performed By: #### FIBR #### [facility] ([facility]) [address] [place] [address] VIRCreatinine [Mass/Vol]0.49 mg/dLNormal0.40-1.00OhioHealth Doctors HospitalComment on above:Result Comment: METHOD TRACEABLE TO IDMS STANDARDPerformed By: #### FIBR #### [facility] ([facility]) [address] [place] [address] VIREGFR (CKD-EPI) NON-RACE DEPENDENT>^90Normal>=60ProEast [place] Regional Hospital HospitalComment on above:Result Comment: Reported eGFR is based on the CKD-EPI 2020 equation that does not use a race coefficient. EGFR not calculated due to patient's gender not being defined.Performed By: #### FIBR #### [facility] ([facility]) [address] [place] [address] VIRGlucose [Mass/Vol]105 mg/qGGasy12-40PcuWyrppq [place] HospitalComment on above:Performed By: #### FIBR #### [facility] ([facility]) [address] [address] VIRPotassium [Moles/Vol]3.6 mmol/LNormal3.5-5.0ProEast [place] Regional Hospital HospitalComment on above:Performed By: #### FIBR #### [facility] ([facility]) [address] [place] [address] VIRSodium [Moles/Vol]143 mmol/QTlqwmb353-119NpkLqakdo [place] HospitalComment on above:Performed By: #### FIBR #### [facility] ([facility]) [address] [place] [address] VIRUrea nitrogen [Mass/Vol]15 mg/dLNormal5-27ProEast [place] Regional Hospital HospitalComment on above:Performed By: #### FIBR #### [facility] ([facility]) [address] [place] [address] VIRBasic Metabolic Panelon 78-82-1750Rzjtp gap [Moles/Vol]9 mmol/L5 - 15 mmol/LProMedica Health SystemCalcium [Mass/Vol]7.9 mg/dLLow8.5 - 10.5 mg/dLProMedica Health SystemChloride [Moles/Vol]115 mmol/LHigh98 - 109 mmol/LProMedica Health SystemCO2 [Moles/Vol]19 mmol/LLow22 - 32 mmol/LProMedica Health SystemCreatinine [Mass/Vol]0.49 mg/dL0.40 - 1.00 mg/dLLima Memorial HospitalComment on above:METHOD TRACEABLE TO IDMS STANDARDEGFR Non-Race Dependent- [facility]—Henrico CampusComment on above:Reported eGFR is based on the CKD-EPI 2020 equation that does not use a race coefficient. EGFR not calculated due to patient's gender not being defined. Glucose [Mass/Vol]105 mg/cMJbtf12 - 99 mg/dLLima Memorial HospitalPotassium [Moles/Vol]3.6 mmol/L3.5 - 5.0 mmol/LPrVibra Long Term Acute Care Hospital Health SystemSodium [Moles/Vol] 143 mmol/L134 - 146 mmol/[facility]Health SystemUrea nitrogen [Mass/Vol]15 mg/dL5 - 27 mg/dLLima Memorial HospitalCB WITH AUTO DIFFERENTIALon 05-19-2025 BASOPHILS ABSOLUTE COUNT (10*3/UL) BY AUTOMATED COUNT0.0 10*3/uLNormal0.0-0.2 [facility] Doctors HospitalComment on above:Performed By: #### FIBR #### [facility] ([facility]) [address] [place] [address] VIRBASOPHILS RELATIVE PERCENT BY AUTOMATED COUNT0.4 %Normal [facility] Doctors HospitalComment on above:Performed By: #### FIBR #### [facility] ([facility]) [address] [place] [address] VIRCELLAVISION DIFFERENTIAL TYPEAUTOMATED DIFFERENTIALNormal [facility] Doctors HospitalComment on above:Performed By: #### FIBR #### [facility] ([facility]) [address] [place] [address] VIREosinophils (Bld) [#/Vol]0.0 10*3/uLNormal0.0-0.4OhioHealth Doctors HospitalComment on above:Performed By: #### FIBR #### [facility] ([facility]) [address] [place] [address] VIREOSINOPHILS RELATIVE PERCENT BY AUTOMATED COUNT0.4 %Normal [facility] Doctors HospitalComment on above:Performed By: #### FIBR #### [facility] ([facility]) [address] [place] [address] VIRErythrocyte distribution width (RBC) [Ratio]14.2 %Normal 11.5-15ProMedica Denair HospitalComment on above:Performed By: #### FIBR #### [facility] ([facility]) [address] [place] [address] VIRHematocrit (Bld) [Volume fraction]30.8 %Lyy38-20SkhLzeghe [place] HospitalComment on above:Performed By: #### FIBR #### [facility] ([facility]) [address] [place] [address] VIRHemoglobin (Bld) [Mass/Vol]10.3 g/dLLow11.7-15.5ProMedica [facility]air HospitalComment on above:Performed By: #### FIBR #### [facility] ([facility]) [address] [place] [address] VIRLYMPHOCYTES ABSOLUTE COUNT (10*3/UL) BY AUTOMATED COUNT0.9 10*3/uLLow1.0-3.5ProMedica Denair HospitalComment on above:Performed By: #### FIBR #### [facility] ([facility]) [address] [place] [address] VIRLYMPHOCYTES RELATIVE PERCENT BY AUTOMATED COUNT9.5 %Normal [facility] Den[facility] HospitalComment on above:Performed By: #### FIBR #### [facility] ([facility]) [address] [place] [address] VIRMCH (RBC) [Entitic mass]30.7 ojLsykfq90-99XfrUaovop [place] HospitalComment on above:Performed By: #### FIBR #### [facility] ([facility]) [address] [place] [address] VIRMCHC (RBC) [Mass/Vol]33.4 g/kDXplmny22-96RsnHravdd [place] HospitalComment on above:Performed By: #### FIBR #### [facility] ([facility]) [address] [place] [address] VIRMCV (RBC) [Entitic vol]92 fQKyoiyv05-775QexLlcrwp [facility] HospitalComment on above:Performed By: #### FIBR #### [facility] ([facility]) [address] [place] [address] VIRMONOCYTES ABSOLUTE COUNT (10*3/UL) BY AUTOMATED COUNT0.6 10*3/uLNormal0.0-0.9ProOhiohealth Mansfield Hospitalca Denair HospitalComment on above:Performed By: #### FIBR #### [facility] ([facility]) [address] [place] [address] VIRMONOCYTES RELATIVE PERCENT BY AUTOMATED COUNT5.8 %Normal ProMHighland District Hospital HospitalComment on above:Performed By: #### FIBR #### [facility] ([facility]) [address] [place] [address] VIRNEUTROPHILS ABSOLUTE COUNT BY AUTOMATED COUNT8.3 10*3/uLHigh 1.5-6.6ProOhiohealth Mansfield Hospitalca Denair HospitalComment on above:Performed By: #### FIBR #### [facility] ([facility]) [address] [place] [address] VIRNEUTROPHILS RELATIVE PERCENT BY AUTOMATED COUNT83.9 %Normal ProMHighland District Hospital HospitalComment on above:Performed By: #### FIBR #### [facility] ([facility]) [address] [place] [address] VIRPlatelet mean volume (Bld) [Entitic vol]10.1 fLNormal7-12 [facility] HospitalComment on above:Performed By: #### FIBR #### [facility] ([facility]) [address] [place] [address] VIRPlatelets (Bld) [#/Vol]122 10*3/hYWls122-466HkiIegpmu [facility] HospitalComment on above:Performed By: #### FIBR #### [facility] ([facility]) [address] [place] [address] VIRRBC COUNT3.35 X10E12/LLow3.8-5.2PUpper Valley Medical Center Comment on above:Performed By: #### FIBR #### [facility] ([facility]) [address] [place] [address] VIRWBC (Bld) [#/Vol]9.9 10*3/uLNormal4-11Ohio[facility] Doctors HospitalComment on above:Performed By: #### FIBR #### [facility] ([facility]) [address] [place] [address] VIRCBC auto differentialon 60-62-4928Vcqmjszdk (Bld) [#/Vol]0 10*3/uL0.0 - 0.2 10*3/uLLima Memorial HospitalBasophils/100 WBC (Bld)0.4 % [facility] HospitalDifferential cell count method Nom (Bld)AUTOMATED DIFFERENTIALLima Memorial HospitalEosinophils (Bld) [#/Vol]0 10*3/uL0.0 - 0.4 10*3/uLLima Memorial HospitalEosinophils/100 WBC (Bld)0.4 %[facility] Memorial HospitalErythrocyte distribution width (RBC) [Ratio]14.2 %11.5 - 15 %L[facility] Memorial HospitalHematocrit (Bld) [Volume fraction]30.8 %Low35 - 47 %L[facility] Memorial HospitalHemoglobin (Bld) [Mass/Vol]10.3 g/dLLow11.7 - 15.5 g/dLLima Memorial HospitalInterpretation and review of laboratory resultsAbnoFormerly [facility] North HospitalLymphocytes (Bld) [#/Vol]0.9 10*3/uLLow1.0 - 3.5 10*3/uLLima Memorial HospitalLymphocytes/100 WBC (Bld)9.5 %[facility] (RBC) [Entitic mass]30.7 pg27 - 34 pgProMedica Health SystemMCHC (RBC) [Mass/Vol]33.4 g/dL32 - 36 g/dLProCherrington HospitalMCV (RBC) [Entitic vol]92 fL80 - 100 fL [facility] SystemMonocytes (Bld) [#/Vol]0.6 10*3/uL0.0 - 0.9 10*3/uL ProMUnited Hospital SystemMonocytes/100 WBC (Bld)5.8 %[facility] Neutrophils (Bld) [#/Vol]8.3 10*3/uLHigh1.5 - 6.6 10*3/uLProOhiohealth Dublin Methodist Hospital System Neutrophils/100 WBC (Bld)83.9 %[facility] SystemPlatelet mean volume (Bld) [Entitic vol]10.1 fL7 - 12 [facility] SystemPlatelets (Bld) [#/Vol]122 10*3/uLLowMercy Health Lorain Hospital SystemRBC (Bld) [#/Vol]3.35 10*6/uLFairmont Hospital and Clinic SystemWBC LM Ql (Sput)9.9[facility] SystemProCherrington HospitalCK TOTALon 43-48-9663NAY561 U/UJrlw83-903OerFlyexaSelect Medical Specialty Hospital - Columbus SouthComment on above:Performed By: #### FIBR #### [facility] ([facility]) [address] [place] [address] VIRCK Totalon 00-39-8301IY [Catalytic activity/Vol]653 U/LHigh 24 - 170 U/LPrWVUMedicine Harrison Community Hospital SystemMYOGLOBIN, SERUMon 95-70-3865FUDEP MYOGLOBIN 95.4 ng/nZRwft56.3-65.8Ohio[facility] Doctors HospitalComment on above:Performed By: #### FIBR #### [facility] ([facility]) [address] [place] [address] VIRMyoglobin, serumon 57-28-3970Ygismnwux [Mass/Vol]95.4 ng/mL High14.3 - 65.8 ng/mLLima Memorial HospitalNo Panel Informationon 05-19-2025 Interpretation and review of laboratory resultsAbnormalProAurora Medical Center in Summit SystemPOTASSIUMon 71-67-0720Ojtuxdkcr [Moles/Vol]4.2 mmol/L Normal3.5-5.0OhioHealth Doctors HospitalComment on above:Performed By: #### FIBR #### [facility] ([facility]) [address] [place] [address] VIRPotassiumon 87-00-7001Whhizdhdakuwaf and review of laboratory resultsNormalLima Memorial HospitalPotassium [Moles/Vol]4.2 mmol/L 3.5 - 5.0 mmol/LProMedica Saint Mary's Regional Medical CenterBASIC METABOLIC PANELon 57-15-1462Cocma gap [Moles/Vol]7 mmol/LNormal5-15Ohio[facility] Doctors HospitalComment on above:Performed By: #### CBCA #### [facility] ([facility]) [address] [place] [address] VIRCalcium [Mass/Vol]7.8 mg/dLLow8.5-10.5PUpper Valley Medical CenterComment on above:Performed By: #### CBCA #### [facility] ([facility]) [address] [place] [address] VIRChloride [Moles/Vol]115 mmol/VEzus60-207KfuPmfppeSelect Medical Specialty Hospital - Columbus SouthComment on above:Performed By: #### CBCA #### [facility] ([facility]) [address] [address] VIRCO2 [Moles/Vol]22 mmol/XJiklpo98-21DqwNidgdbUpper Valley Medical Center Comment on above:Performed By: #### CBCA #### [facility] ([facility]) [address] [place] [address] VIRCreatinine [Mass/Vol]0.49 mg/dLNormal0.40-1.00OhioHealth Doctors HospitalComment on above:Result Comment: METHOD TRACEABLE TO IDMS STANDARDPerformed By: #### CBCA #### [facility] ([facility]) [address] [place] [address] VIREGFR (CKD-EPI) NON-RACE DEPENDENT>^90Normal>=60ProEast [facility] Regional Hospital HospitalComment on above:Result Comment: Reported eGFR is based on the CKD-EPI 2020 equation that does not use a race coefficient. EGFR not calculated due to patient's gender not being defined.Performed By: #### CBCA #### [facility] ([facility]) [address] [id number] VIRGlucose [Mass/Vol]110 mg/vYHoob74-01VcuOnmyrx [place] HospitalComment on above:Performed By: #### CBCA #### [facility] ([facility]) [address] [address] VIRPotassium [Moles/Vol]3.8 mmol/LNormal3.5-5.0ProEast [facility] HospitalComment on above:Performed By: #### CBCA #### [facility] ([facility]) [address] [place] [id number] VIRSodium [Moles/Vol]144 mmol/[id number] [place] HospitalComment on above:Performed By: #### CBCA #### [facility] ([facility]) [address] [address] VIRUrea nitrogen [Mass/Vol]12 mg/dLNormal5-27Pro[facility] HospitalComment on above:Performed By: #### CBCA #### [facility] ([facility]) [address] [address] VIRBasic Metabolic Panelon [id number] gap [Moles/Vol]7 mmol/L5 - 15 mmol/LProMedica Health SystemCalcium [Mass/Vol]7.8 mg/dLLow8.5 - 10.5 mg/dLProMedica Health SystemChloride [Moles/Vol]115 mmol/LHigh98 - 109 mmol/LProMedica Health SystemCO2 [Moles/Vol]22 mmol/L22 - 32 mmol/LProMedica Health SystemCreatinine [Mass/Vol]0.49 mg/dL0.40 - 1.00 mg/dLLima Memorial HospitalComment on above:METHOD TRACEABLE TO IDMS STANDARDEGFR Non-Race Dependent- [facility] CampusComment on above:Reported eGFR is based on the CKD-EPI 2020 equation that does not use a race coefficient. EGFR not calculated due to patient's gender not being defined. Glucose [Mass/Vol]110 mg/gKWjxx01 - 99 mg/dLLima Memorial Hospital Interpretation and review of laboratory resultsAbnormalLima Memorial Hospital Potassium [Moles/Vol]3.8 mmol/L3.5 - 5.0 mmol/LPrWVUMedicine Harrison Community Hospital SystemSodium [Moles/Vol]144 mmol/L134 - 146 mmol/[facility] SystemUrea nitrogen [Mass/Vol]12 mg/dL5 - 27 mg/dLJefferson HospitalCBC WITH AUTO DIFFERENTIALon [id number] ABSOLUTE COUNT (10*3/UL) BY AUTOMATED COUNT0.1 10*3/uLNormal0.0-0.2PUpper Valley Medical CenterComment on above:Performed By: #### CBCA #### [facility] ([facility]) [address] [address] VIRBASOPHILS RELATIVE PERCENT BY AUTOMATED COUNT0.5 %Normal [facility] Doctors HospitalComment on above:Performed By: #### CBCA #### [facility] ([facility]) [address] [address] VIRCELLAVISION DIFFERENTIAL TYPEAUTOMATED DIFFERENTIALNormal [facility] Doctors HospitalComment on above:Performed By: #### CBCA #### [facility] ([facility]) [address] [place] [address] VIREosinophils (Bld) [#/Vol]0.0 10*3/uLNormal0.0-0.4OhioHealth Doctors HospitalComment on above:Performed By: #### CBCA #### [facility] ([facility]) [address] [place] [address] VIREOSINOPHILS RELATIVE PERCENT BY AUTOMATED COUNT0.4 %Normal [facility] Denair HospitalComment on above:Performed By: #### CBCA #### [facility] ([facility]) [address] [place] [address] VIRErythrocyte distribution width (RBC) [Ratio]14.3 %Normal 11.5-15ProMedica Denair HospitalComment on above:Performed By: #### CBCA #### [facility] ([facility]) [address] [place] [address] VIRHematocrit (Bld) [Volume fraction]30.7 %Nlg94-19NyeAkbqgy Denair HospitalComment on above:Performed By: #### CBCA #### [facility] ([facility]) [address] [place] [address] VIRHemoglobin (Bld) [Mass/Vol]10.2 g/dLLow11.7-15.5ProMedica Denair HospitalComment on above:Performed By: #### CBCA #### [facility] ([facility]) [address] [place] [address] VIRLYMPHOCYTES ABSOLUTE COUNT (10*3/UL) BY AUTOMATED COUNT0.9 10*3/uLLow1.0-3.5ProMedHighland District Hospital HospitalComment on above:Performed By: #### CBCA #### [facility] ([facility]) [address] [place] [address] VIRLYMPHOCYTES RELATIVE PERCENT BY AUTOMATED COUNT8.6 %Normal [facility] Denair HospitalComment on above:Performed By: #### CBCA #### [facility] ([facility]) [address] [place] [address] VIRMCH (RBC) [Entitic mass]30.5 ruTlsbqj19-25LzvRhaguq Denair HospitalComment on above:Performed By: #### CBCA #### [facility] ([facility]) [address] [place] [address] VIRMCHC (RBC) [Mass/Vol]33.3 g/gLElqlee41-31HbuBrmxzx Denair HospitalComment on above:Performed By: #### CBCA #### [facility] ([facility]) [address] [place] [address] VIRMCV (RBC) [Entitic vol]92 lUYzqsok27-118FxlQmyhey Denair HospitalComment on above:Performed By: #### CBCA #### [facility] ([facility]) [address] [place] [address] VIRMONOCYTES ABSOLUTE COUNT (10*3/UL) BY AUTOMATED COUNT0.7 10*3/uLNormal0.0-0.9ProEast [place] [facility] HospitalComment on above:Performed By: #### CBCA #### [facility] ([facility]) [address] [place] [address] VIRMONOCYTES RELATIVE PERCENT BY AUTOMATED COUNT6.4 %Normal ProMHighland District Hospital HospitalComment on above:Performed By: #### CBCA #### [facility] ([facility]) [address] [place] [address] VIRNEUTROPHILS ABSOLUTE COUNT BY AUTOMATED COUNT9.1 10*3/uLHigh 1.5-6.6ProEast [place] [facility] HospitalComment on above:Performed By: #### CBCA #### [facility] ([facility]) [address] [place] [address] VIRNEUTROPHILS RELATIVE PERCENT BY AUTOMATED COUNT84.1 %Normal ProMHighland District Hospital HospitalComment on above:Performed By: #### CBCA #### [facility] ([facility]) [address] [place] [address] VIRPlatelet mean volume (Bld) [Entitic vol]10.4 fLNormal7-12 ProMedicSelect Medical Cleveland Clinic Rehabilitation Hospital, Beachwood HospitalComment on above:Performed By: #### CBCA #### [facility] ([facility]) [address] [place] [address] VIRPlatelets (Bld) [#/Vol]109 10*3/mAXvu051-966JpwKdyhejSelect Medical Specialty Hospital - Columbus SouthComment on above:Performed By: #### CBCA #### [facility] ([facility]) [address] [place] [address] VIRRBC COUNT3.35 X10E12/LLow3.8-5.2PUpper Valley Medical Center Comment on above:Performed By: #### CBCA #### [facility] ([facility]) [address] [place] [address] VIRWBC (Bld) [#/Vol]10.8 10*3/uLNormal4-11OhioHealth Doctors HospitalComment on above:Performed By: #### CBCA #### [facility] ([facility]) [address] [address] VIRCBC auto differentialon [id number] (Bld) [#/Vol]0.1 10*3/uL0.0 - 0.2 10*3/uLLima Memorial HospitalBasophils/100 WBC (Bld)0.5 % [facility] HospitalDifferential cell count method Nom (Bld)AUTOMATED DIFFERENTIALLima Memorial HospitalEosinophils (Bld) [#/Vol]0 10*3/uL0.0 - 0.4 10*3/uLLima Memorial HospitalEosinophils/100 WBC (Bld)0.4 %[facility] Memorial HospitalErythrocyte distribution width (RBC) [Ratio]14.3 %11.5 - 15 %L[facility] Memorial HospitalHematocrit (Bld) [Volume fraction]30.7 %Low35 - 47 %L[facility] Memorial HospitalHemoglobin (Bld) [Mass/Vol]10.2 g/dLLow11.7 - 15.5 g/dLLima Memorial HospitalInterpretation and review of laboratory resultsAbnormalLima Memorial HospitalLymphocytes (Bld) [#/Vol]0.9 10*3/uLLow1.0 - 3.5 10*3/uLLima Memorial HospitalLymphocytes/100 WBC (Bld)8.6 %[facility] TriPoint Medical CenterH (RBC) [Entitic mass]30.5 pg27 - [address] Vincent Medical CenterMCHC (RBC) [Mass/Vol]33.3 g/dL32 - 36 g/dLLima Memorial HospitalMCV (RBC) [Entitic vol]92 fL80 - 100 fL [facility] HospitalMonocytes (Bld) [#/Vol]0.7 10*3/uL0.0 - 0.9 10*3/uL [facility] HospitalMonocytes/100 WBC (Bld)6.4 %[facility] Neutrophils (Bld) [#/Vol]9.1 10*3/uLHigh1.5 - 6.6 10*3/uLLima Memorial Hospital Neutrophils/100 WBC (Bld)84.1 %L[facility] Memorial HospitalPlatelet mean volume (Bld) [Entitic vol]10.4 fL7 - 12 [facility] Memorial HospitalPlatelets (Bld) [#/Vol]109 10*3/uLSelect Medical Specialty Hospital - YoungstownRBC (Bld) [#/Vol]3.35 10*6/[facility] Shelby HospitalWBC LM Ql (Sput)10.8[facility] CK TOTALon [id number] U/DIlod06-686ScoOltlvqOhioHealth Doctors HospitalComment on above:Performed By: #### CBCA #### [facility] ([facility]) [address] [place] [address] VIRCK Totalon [id number] [Catalytic activity/Vol]1468 U/LHigh 24 - 170 U/[facility] Medical CenterInterpretation and review of laboratory resultsAbnormalJefferson HospitalMYOGLOBIN, SERUMon 35-24-1153XKYMY DNTJWPGXV564.6 ng/yDWlei46.3-65.8[facility] Comment on above:Performed By: #### FIBR #### [facility] ([facility]) [address] [place] [address] VIRMyoglobin, serumon 78-30-5013Qisafefmqdezzd and review of laboratory resultsAbnormalProCherrington HospitalMyoglobin [Mass/Vol]216.6 ng/mL High14.3 - 65.8 ng/mLJefferson HospitalBASIC METABOLIC PANELon 26-14-5607Qzgyx gap [Moles/Vol]8 mmol/LNormal5-15OhioHealth Doctors HospitalComment on above:Performed By: #### DSU #### [facility] ([facility]) [address] [place] [address] VIRCalcium [Mass/Vol]8.0 mg/dLLow8.5-10.5PUpper Valley Medical CenterComment on above:Performed By: #### DSU #### [facility] ([facility]) [address] [place] [address] VIRChloride [Moles/Vol]111 mmol/KJvfn50-375MpiDjjrxeSelect Medical Specialty Hospital - Columbus SouthComment on above:Performed By: #### DSU #### [facility] ([facility]) [address] [place] [address] VIRCO2 [Moles/Vol]23 mmol/RZfdndu56-56OcdIxguvbUpper Valley Medical Center Comment on above:Performed By: #### DSU #### [facility] ([facility]) [address] [place] [address] VIRCreatinine [Mass/Vol]0.67 mg/dLNormal0.40-1.00OhioHealth Doctors HospitalComment on above:Result Comment: METHOD TRACEABLE TO IDMS STANDARDPerformed By: #### DSU #### [facility] ([facility]) [address] [place] [address] VIRGFR/1.73 sq M.predicted among non-blacks MDRD (S/P/Bld) [Vol rate/Area]85 mL/min/{1.73_m2}Normal>=60ProSelect Medical Specialty Hospital - Columbus SouthComment on above:Result Comment: Reported eGFR is based on the CKD-EPI 2020 equation that does not use a race coefficient. EGFR not calculated due to patient's gender not being defined.Performed By: #### DSU #### [facility] ([facility]) [address] [place] [address] VIRGlucose [Mass/Vol]146 mg/hWTrjr71-88SuaSuudlj [place] HospitalComment on above:Performed By: #### DSU #### [facility] ([facility]) [address] [place] [address] VIRPotassium [Moles/Vol]4.0 mmol/LNormal3.5-5.0ProEast [place] [facility] HospitalComment on above:Performed By: #### DSU #### [facility] ([facility]) [address] [place] [address] VIRSodium [Moles/Vol]142 mmol/OQtiojy230-600EcvVuaviv [place] HospitalComment on above:Performed By: #### DSU #### [facility] ([facility]) [address] [place] [address] VIRUrea nitrogen [Mass/Vol]14 mg/dLNormal5-27ProEast [place] Regional Hospital HospitalComment on above:Performed By: #### DSU #### [facility] ([facility]) [address] [place] [address] VIRBEDSIDE GLUCOSEon 04-46-8281Wfbmokk [Mass/Vol]200 mg/dLHigh 65-99ProEast [place] [facility] Hospital HospitalComment on above:Performed By: #### DSU #### [facility] ([facility]) [address] [place] [address] VIRBacteria identified Cx Nom (U)on 55-89-4537Rhzcbhab identified Aer cx Nom (Unsp spec)<10,000 ORGANISMS/mL NORMAL URO GENITAL TAIWO [facility] SystemProMedica [facility] SystemBasic Metabolic Panelon 05-17-2025 Anion gap [Moles/Vol]8 mmol/L5 - 15 mmol/LProMedica Health SystemCalcium [Mass/Vol]8 mg/dLLow8.5 - 10.5 mg/dLLima Memorial HospitalChloride [Moles/Vol] 111 mmol/LHigh98 - 109 mmol/[facility] SystemCO2 [Moles/Vol]23 mmol/L22 - 32 mmol/[facility] SystemCreatinine [Mass/Vol]0.67 mg/dL0.40 - 1.00 mg/dLLima Memorial HospitalComment on above:METHOD TRACEABLE TO IDNC STANDARD EGFR Non-Race Scejdlkba55- [facility] CampusComment on above:Reported eGFR is based on the CKD-EPI 2020 equation that does not use a race coefficient. EGFR not calculated due to patient's gender not being defined. Glucose [Mass/Vol]146 mg/kYZmoo55 - 99 mg/dLLima Memorial Hospital Interpretation and review of laboratory resultsAbCabrini Medical Center Potassium [Moles/Vol]4 mmol/L3.5 - 5.0 mmol/[facility] SystemSodium [Moles/Vol]142 mmol/L134 - 146 mmol/[facility] SystemUrea nitrogen [Mass/Vol]14 mg/dL5 - 27 mg/dLJefferson Hospital Bedside Glucose *Place/Obtain serum glucose if >500 per glucometer.on 05-17-2025 Glucose [Mass/Vol]200 mg/yUSgnj94 - 99 mg/dLLima Memorial Hospital Interpretation and review of laboratory resultsAbAspirus Wausau HospitalCBC WITH AUTO DIFFERENTIALon 32-84-0284LLHJWQIPR ABSOLUTE COUNT (10*3/UL) BY AUTOMATED COUNT0.0 10*3/uLNormal0.0-0.2PUpper Valley Medical CenterComment on above:Performed By: #### CBCA #### [facility] ([facility]) [address] [place], [place] [address] VIRBASOPHILS RELATIVE PERCENT BY AUTOMATED COUNT0.2 %Normal [facility] Doctors HospitalComment on above:Performed By: #### CBCA #### [facility] ([facility]) [address] [place] [address] VIRCELLAVISION DIFFERENTIAL TYPEAUTOMATED DIFFERENTIALNormal ProMHighland District Hospital HospitalComment on above:Performed By: #### CBCA #### [facility] ([facility]) [address] [place] [address] VIREosinophils (Bld) [#/Vol]0.0 10*3/uLNormal0.0-0.4ProEast [place] [facility] HospitalComment on above:Performed By: #### CBCA #### [facility] ([facility]) [address] [place] [address] VIREOSINOPHILS RELATIVE PERCENT BY AUTOMATED COUNT0.0 %Normal [facility] HospitalComment on above:Performed By: #### CBCA #### [facility] ([facility]) [address] [place] [address] VIRErythrocyte distribution width (RBC) [Ratio]14.5 %Normal 11.5-15ProEast [place] [facility] HospitalComment on above:Performed By: #### CBCA #### [facility] ([facility]) [address] [place] [address] VIRHematocrit (Bld) [Volume fraction]33.3 %Xqg33-31GxvLewsux [place]edo HospitalComment on above:Performed By: #### CBCA #### [facility] ([facility]) [address] [place] [address] VIRHemoglobin (Bld) [Mass/Vol]11.1 g/dLLow11.7-15.5PMartin Memorial Hospital HospitalComment on above:Performed By: #### CBCA #### [facility] ([facility]) [address] [place] [address] VIRLYMPHOCYTES ABSOLUTE COUNT (10*3/UL) BY AUTOMATED COUNT0.9 10*3/uLLow1.0-3.5PMartin Memorial Hospital HospitalComment on above:Performed By: #### CBCA #### [facility] ([facility]) [address] [place] [address] VIRLYMPHOCYTES RELATIVE PERCENT BY AUTOMATED COUNT6.1 %Normal [facility] HospitalComment on above:Performed By: #### CBCA #### [facility] ([facility]) [address] [place] [address] VIRMCH (RBC) [Entitic mass]30.2 ocPdfcjd96-73DtiAwknsl Santa HospitalComment on above:Performed By: #### CBCA #### [facility] ([facility]) [address] [place] [address] VIRMCHC (RBC) [Mass/Vol]33.2 g/iEMbkbkh73-79ZicAykxzv Santa HospitalComment on above:Performed By: #### CBCA #### [facility] ([facility]) [address] [place] [address] VIRMCV (RBC) [Entitic vol]91 qIDmlpat80-777LwyRwqoiq Den[facility] HospitalComment on above:Performed By: #### CBCA #### [facility] ([facility]) [address] [place] [address] VIRMONOCYTES ABSOLUTE COUNT (10*3/UL) BY AUTOMATED COUNT0.9 10*3/uLNormal0.0-0.9ProOhiohealth Mansfield Hospitalca Denair HospitalComment on above:Performed By: #### CBCA #### [facility] ([facility]) [address] [place] [address] VIRMONOCYTES RELATIVE PERCENT BY AUTOMATED COUNT6.3 %Normal [facility] HospitalComment on above:Performed By: #### CBCA #### [facility] ([facility]) [address] [place] [address] VIRNEUTROPHILS ABSOLUTE COUNT BY AUTOMATED COUNT12.6 10*3/uL High1.5-6.6ProMedica [facility] HospitalComment on above:Performed By: #### CBCA #### [facility] ([facility]) [address] [place] [address] VIRNEUTROPHILS RELATIVE PERCENT BY AUTOMATED COUNT87.4 %Normal [facility] HospitalComment on above:Performed By: #### CBCA #### [facility] ([facility]) [address] [address] VIRPlatelet mean volume (Bld) [Entitic vol]9.6 fLNormal7-12 [facility] HospitalComment on above:Performed By: #### CBCA #### [facility] ([facility]) [address] [place] [address] VIRPlatelets (Bld) [#/Vol]135 10*3/kIJag736-705CzjAhcmbkOhioHealth Doctors HospitalComment on above:Performed By: #### CBCA #### [facility] ([facility]) [address] [place] [address] VIRRBC COUNT3.66 X10E12/LLow3.8-5.2PUpper Valley Medical Center Comment on above:Performed By: #### CBCA #### [facility] ([facility]) [address] [place] [address] VIRWBC (Bld) [#/Vol]14.4 10*3/uLHigh4-11[facility] Doctors HospitalComment on above:Performed By: #### CBCA #### [facility] ([facility]) [address] [place] [address] VIRCBC auto differentialon [id number] (Bld) [#/Vol]0 10*3/uL0.0 - 0.2 10*3/uLProMedica Southern [facility] SystemBasophils/100 WBC (Bld)0.2 % [facility] HospitalDifferential cell count method Nom (Bld)AUTOMATED DIFFERENTIALLima Memorial HospitalEosinophils (Bld) [#/Vol]0 10*3/uL0.0 - 0.4 10*3/uLProMediLakeHealth Beachwood Medical Center SystemEosinophils/100 WBC (Bld)0 %[facility] SystemErythrocyte distribution width (RBC) [Ratio]14.5 %11.5 - 15 %[facility] HospitalHematocrit (Bld) [Volume fraction]33.3 %Low35 - 47 %[facility] HospitalHemoglobin (Bld) [Mass/Vol]11.1 g/dLLow11.7 - 15.5 g/dLLima Memorial HospitalInterpretation and review of laboratory resultsAbnormalLima Memorial HospitalLymphocytes (Bld) [#/Vol]0.9 10*3/uLLow1.0 - 3.5 10*3/uLLima Memorial HospitalLymphocytes/100 WBC (Bld)6.1 %[facility]Point Medical CenterH (RBC) [Entitic mass]30.2 pg27 - [address] Vincent Medical CenterMCHC (RBC) [Mass/Vol]33.2 g/dL32 - 36 g/dLLima Memorial HospitalMCV (RBC) [Entitic vol]91 fL80 - 100 fL [facility] HospitalMonocytes (Bld) [#/Vol]0.9 10*3/uL0.0 - 0.9 10*3/uL [facility] HospitalMonocytes/100 WBC (Bld)6.3 %[facility] Neutrophils (Bld) [#/Vol]12.6 10*3/uLHigh1.5 - 6.6 10*3/uLLima Memorial HospitalNeutrophils/100 WBC (Bld)87.4 %[facility] HospitalPlatelet mean volume (Bld) [Entitic vol]9.6 fL7 - 12 [facility] HospitalPlatelets (Bld) [#/Vol]135 10*3/uLLowLima Memorial HospitalRBC (Bld) [#/Vol]3.66 10*6/uLLow [facility] HospitalWBC LM Ql (Sput)14.4HHudson [facility] Clinic [id number] U/BXnpg36-876QcvCgycgoOhioHealth Doctors Hospital Comment on above:Performed By: #### CBCA #### [facility] ([facility]) [address] [place] [address] VIRCK Totalon [id number] [Catalytic activity/Vol]1976 U/LHigh 24 - 170 U/LProMedica Health SystemCK [Catalytic activity/Vol]1293 U/LHigh24 - 170 U/LProMedica Health SystemCT BRAIN WO CONTon [id number] BRAIN WO CONTCT BRAIN WO CONT History: SDH, SAH Exam/Technique: [...] multiple stable subarachnoid hemorrhagic changes along the leftmore than right right temporal lobes, both occipital [...] by Pako Estevez MD on 05/17/2025 1:54 AMNormalProOhiohealth Mansfield Hospitalca [facility]al Medical CenterCT Head WO contraston 05-17-2025 History: SDH, SAH Exam/Technique: CT images of [...] multiple stable subarachnoid hemorrhagic changes along the leftmore than right right temporal lobes, both occipital [...] by Pako Estevez MD on 05/17/2025 1:54 AMSECTRAPako Hannah MD - 05/17/2025 History: SDH, SAH Exam/Technique: [...] multiple stable subarachnoid hemorrhagic changes along the leftmore than right right temporal lobes, both occipital [...] Pako Estevez MD on 05/17/2025 1:54 AM WiFastRadiology Study observation (narrative)[employer] SystemCT Head WO contrastOrdered By: Pako Estevez on [id number] [employer] Work Phone: [employer] Iceon [id number] TubeAuto Resulted [facility] HospitalWorldDesk Helen Newberry Joy HospitalProOhiohealth Mansfield HospitalLogicalware SystemIONIZED MAGNESIUMon 05-17-2025 Magnesium [Moles/Vol]0.78 mmol/LHigh0.45-0.74OhioHealth Doctors HospitalComment on above:Performed By: #### CBCA #### [facility] ([facility]) [address] [place] [address] VIRIonized magnesiumon [id number] and review of laboratory resultsAbnormalProInfirmary West Health SystemMagnesium Ionized ISE (Bld) [Moles/Vol]0.78 mmol/LHigh0.45 - 0.74 mmol/LProMedica Health SystemProMedica Health SystemLactate w/ Reflexon [id number] and review of laboratory resultsNormalMemorial Health System Marietta Memorial Hospitalca Health SystemLactate (P cirilo) [Moles/Vol]2 mmol/L0.4 - 2.0 mmol/LProMedica Health SystemResult did not trigger repeat Lactate, re-order if needed.[facility] Hospitaledic Health SystemMercy Health Lorain Hospital SystemMYOGLOBIN, SERUMon 16-41-2379MHWCW CLNPHMMUC054.7 ng/tGYgxk64.3-65.8OhioHealth Doctors HospitalComment on above:Performed By: #### CBCA #### [facility] ([facility]) [address] [place] [address] VIRMagnesiumon 62-40-3221Cnqheccsx [Mass/Vol]1.7 mg/dLLow1.8 - 2.6 mg/dLMercy Health Lorain Hospital SystemMyoglobin, serumon 30-77-6820Upydacrdy [Mass/Vol]967.7 ng/qAErgt42.3 - 65.8 ng/mLNorth Country HospitalMedica Health SystemMyoglobin [Mass/Vol]1106.1 ng/aONofp50.3 - 65.8 ng/mLMercy Health Lorain Hospital SystemNo Panel Informationon 62-83-1622Voluticsbomhnz and review of laboratory resultsAbnormal ProMedica Health SystemProMedica Health SystemInterpretation and review of laboratory resultsAbnormalProMedica Health SystemProOhiohealth Mansfield Hospitalca Health System Phosphoruson 49-43-9431Anjpfhlvyznkrx and review of laboratory resultsNormal ProMedica Health SystemPhosphate [Mass/Vol]2.8 mg/dL2.4 - 4.9 mg/dLNorth Country HospitalMedica Health SystemABO Rh Repeaton 14-11-4598RZP and Rh group Nom (Bld)OProMedica Health SystemABO and Rh group Nom (Bld)PositiveProCherrington HospitalProInfirmary West Health SystemAMYLASEon 72-28-4572Kvzfyrj [Catalytic activity/Vol]54 U/LNormal 28-100OhioHealth Doctors HospitalComment on above:Performed By: #### AMYL #### [facility] ([facility]) [address] [place] [address] VIRAPTTon 22-68-7399pKYJ Coag (PPP) [Time]24 Unity HospitalInterpretation and review of laboratory resultsAbnoFormerly [facility], [facility] North HospitalaPTT Coag (Bld) [Time]24 iJqg81-84SupQmvfpyOhioHealth Doctors HospitalComment on above:Performed By: #### PTT #### [facility] ([facility]) [address] [place] [address] VIRAmylaseon 26-13-9580Ruqruqy (S/P/Bld) [Catalytic activity/Vol]54 U/L28 - 100 U/LProMedProMedica Flower HospitalBLOOD CULTUREon 05-16-2025 Bacteria identified Cx Nom (Bld)CULTURE RESULTS NO GROWTH 5 DAYSNoCoshocton Regional Medical CenterComment on above:Order Comment: *SIRS Criteria: (must display 2 without [...] volume of blood collected, Results may be affected.Performed By: #### CBCA #### [facility] ([facility]) [address] [place] [address] VIRCBC WITH AUTO DIFFERENTIALon 59-82-7756PECQMKTGT ABSOLUTE COUNT (10*3/UL) BY AUTOMATED COUNT0.0 10*3/uLNormal0.0-0.2ProMedHighland District Hospital HospitalComment on above:Performed By: #### CBCA #### [facility] ([facility]) [address] [place] [address] VIRBASOPHILS RELATIVE PERCENT BY AUTOMATED COUNT0.2 %Normal [facility] HospitalComment on above:Performed By: #### CBCA #### [facility] ([facility]) [address] [place] [address] VIRCELLAVISION DIFFERENTIAL TYPEAUTOMATED DIFFERENTIALNormal [facility] HospitalComment on above:Performed By: #### CBCA #### [facility] ([facility]) [address] [place] [address] VIREosinophils (Bld) [#/Vol]0.0 10*3/uLNormal0.0-0.4ProOhiohealth Mansfield Hospitalca Denair HospitalComment on above:Performed By: #### CBCA #### [facility] ([facility]) [address] [place] [address] VIREOSINOPHILS RELATIVE PERCENT BY AUTOMATED COUNT0.0 %Normal [facility] HospitalComment on above:Performed By: #### CBCA #### [facility] ([facility]) [address] [place] [address] VIRErythrocyte distribution width (RBC) [Ratio]14.3 %Normal 11.5-15ProMedica Denair HospitalComment on above:Performed By: #### CBCA #### [facility] ([facility]) [address] [place] [address] VIRHematocrit (Bld) [Volume fraction]37.2 %Snkrhw91-05XjoNixxhu Denair HospitalComment on above:Performed By: #### CBCA #### [facility] ([facility]) [address] [place] [address] VIRHemoglobin (Bld) [Mass/Vol]12.4 g/jEHdvquf21.7-15.5ProMedica Denair HospitalComment on above:Performed By: #### CBCA #### [facility] ([facility]) [address] [place] [address] VIRLYMPHOCYTES ABSOLUTE COUNT (10*3/UL) BY AUTOMATED COUNT0.5 10*3/uLLow1.0-3.5ProMedHighland District Hospital HospitalComment on above:Performed By: #### CBCA #### [facility] ([facility]) [address] [place] [address] VIRLYMPHOCYTES RELATIVE PERCENT BY AUTOMATED COUNT3.3 %Normal ProMedica [facility]air HospitalComment on above:Performed By: #### CBCA #### [facility] ([facility]) [address] [place] [address] VIRMCH (RBC) [Entitic mass]30.5 pqDwaakr60-36QbkLldpbd [facility] HospitalComment on above:Performed By: #### CBCA #### [facility] ([facility]) [address] [place] [address] VIRMCHC (RBC) [Mass/Vol]33.4 g/eJNfjppn45-68NkzOckqew Santa HospitalComment on above:Performed By: #### CBCA #### [facility] ([facility]) [address] [place] [address] VIRMCV (RBC) [Entitic vol]91 wVMagsjl25-224YddJakncs [facility] HospitalComment on above:Performed By: #### CBCA #### [facility] ([facility]) [address] [place] [address] VIRMONOCYTES ABSOLUTE COUNT (10*3/UL) BY AUTOMATED COUNT0.9 10*3/uLNormal0.0-0.9ProMedica Denair HospitalComment on above:Performed By: #### CBCA #### [facility] ([facility]) [address] [place] [address] VIRMONOCYTES RELATIVE PERCENT BY AUTOMATED COUNT5.2 %Normal [facility] HospitalComment on above:Performed By: #### CBCA #### [facility] ([facility]) [address] [place] [address] VIRNEUTROPHILS ABSOLUTE COUNT BY AUTOMATED COUNT14.9 10*3/uL High1.5-6.6ProOhiohealth Mansfield Hospitalca Denair HospitalComment on above:Performed By: #### CBCA #### [facility] ([facility]) [address] [place] [address] VIRNEUTROPHILS RELATIVE PERCENT BY AUTOMATED COUNT91.3 %Normal [facility] HospitalComment on above:Performed By: #### CBCA #### [facility] ([facility]) [address] [place] [address] VIRPlatelet mean volume (Bld) [Entitic vol]9.8 fLNormal7-12 [facility] HospitalComment on above:Performed By: #### CBCA #### [facility] ([facility]) [address] [place] [address] VIRPlatelets (Bld) [#/Vol]155 10*3/uMGqybyk986-256ApxEwsraz [facility] HospitalComment on above:Performed By: #### CBCA #### [facility] ([facility]) [address] [place] [address] VIRRBC COUNT4.08 X10E12/LNormal3.8-5.2[facility] Comment on above:Performed By: #### CBCA #### [facility] ([facility]) [address] [place] [address] VIRWBC (Bld) [#/Vol]16.3 10*3/uLHigh4-11ProOhiohealth Mansfield Hospitalca Denair HospitalComment on above:Performed By: #### CBCA #### [facility] ([facility]) [address] [place] [address] VIRCBC auto differentialon 30-46-1090Lodpqwozu (Bld) [#/Vol]0 10*3/uL0.0 - 0.2 10*3/uLLima Memorial HospitalBasophils/100 WBC (Bld)0.2 % [facility] HospitalDifferential cell count method Nom (Bld)AUTOMATED DIFFERENTIALLima Memorial HospitalEosinophils (Bld) [#/Vol]0 10*3/uL0.0 - 0.4 10*3/uLLima Memorial HospitalEosinophils/100 WBC (Bld)0 %[facility] Memorial HospitalErythrocyte distribution width (RBC) [Ratio]14.3 %11.5 - 15 %[facility] Memorial HospitalHematocrit (Bld) [Volume fraction]37.2 %35 - 47 %[facility] Memorial HospitalHemoglobin (Bld) [Mass/Vol]12.4 g/dL11.7 - 15.5 g/dLLima Memorial HospitalInterpretation and review of laboratory resultsAbnormalLima Memorial HospitalLymphocytes (Bld) [#/Vol]0.5 10*3/uLLow1.0 - 3.5 10*3/uLLima Memorial HospitalLymphocytes/100 WBC (Bld)3.3 %[facility] Memorial HospitalMCH (RBC) [Entitic mass]30.5 pg27 - 34 [facility] HospitalMCHC (RBC) [Mass/Vol]33.4 g/dL32 - 36 g/dLLima Memorial HospitalMCV (RBC) [Entitic vol]91 fL80 - 100 [facility] HospitalMonocytes (Bld) [#/Vol]0.9 10*3/uL0.0 - 0.9 10*3/uLLima Memorial HospitalMonocytes/100 WBC (Bld)5.2 %[facility] Memorial HospitalNeutrophils (Bld) [#/Vol]14.9 10*3/uLHigh1.5 - 6.6 10*3/uLLima Memorial HospitalNeutrophils/100 WBC (Bld)91.3 %[facility] Memorial HospitalPlatelet mean volume (Bld) [Entitic vol] 9.8 fL7 - 12 [facility] HospitalPlatelets (Bld) [#/Vol]155 10*3/uL [facility] HospitalRBC (Bld) [#/Vol]4.08 10*6/uLLima Memorial HospitalW LM Ql (Sput)16.3HLehigh Valley Hospital - Schuylkill South Jackson StreetCK TOTALon 59-60-8674LEQ7829 U/ZOjie34-864BplHwsxqy Santa HospitalComment on above: Performed By: #### DSU #### [facility] ([facility]) [address] [place] [address] VIRCOMPREHENSIVE METABOLIC PANELon 88-33-9362Xobhjrn [Mass/Vol] 3.6 g/dLNormal3.2-5.3ProMedHighland District Hospital HospitalComment on above:Performed By: #### CMP #### [facility] ([facility]) [address] [place] [address] VIRALP [Catalytic activity/Vol]102 U/EZsfqaf70-884GckXylpte Santa HospitalComment on above:Performed By: #### CMP #### [facility] ([facility]) [address] [place] [address] VIRALT [Catalytic activity/Vol]11 U/LNormal<=31ProMedHighland District Hospital HospitalComment on above:Performed By: #### CMP #### [facility] ([facility]) [address] [place] [address] VIRAnion gap [Moles/Vol]11 mmol/LNormal5-15Pro[facility] HospitalComment on above:Performed By: #### CMP #### [facility] ([facility]) [address] [place] [address] VIRAST [Catalytic activity/Vol]32 U/LNormal<=41ProMedica [facility] HospitalComment on above:Performed By: #### CMP #### [facility] ([facility]) [address] [place] [address] VIRBilirubin [Mass/Vol]0.4 mg/dLNormal0.3-1.2ProMedMemorial Health System Marietta Memorial HospitalComment on above:Performed By: #### CMP #### [facility] ([facility]) [address] [place] [address] VIRCalcium [Mass/Vol]8.4 mg/dLLow8.5-10.5PUpper Valley Medical CenterComment on above:Performed By: #### CMP #### [facility] ([facility]) [address] [place] [address] VIRChloride [Moles/Vol]107 mmol/RTbgxak49-858DjlFvwgyt [place] HospitalComment on above:Performed By: #### CMP #### [facility] ([facility]) [address] [place] [address] VIRCO2 [Moles/Vol]23 mmol/AVbywmd19-98DyrQdzlap [facility] Comment on above:Performed By: #### CMP #### [facility] ([facility]) [address] [place] [address] VIRCreatinine [Mass/Vol]0.65 mg/dLNormal0.40-1.00ProSelect Medical Specialty Hospital - Columbus SouthComment on above:Result Comment: METHOD TRACEABLE TO IDMS STANDARDPerformed By: #### CMP #### [facility] ([facility]) [address] [place] [address] VIRGFR/1.73 sq M.predicted among non-blacks MDRD (S/P/Bld) [Vol rate/Area]85 mL/min/{1.73_m2}Normal>=60ProSelect Medical Specialty Hospital - Columbus SouthComment on above:Result Comment: Reported eGFR is based on the CKD-EPI 2020 equation that does not use a race coefficient. EGFR not calculated due to patient's gender not being defined.Performed By: #### CMP #### [facility] ([facility]) [address] [place] [address] VIRGlucose [Mass/Vol]158 mg/aYBfhv52-11NheWlfafv [place] HospitalComment on above:Performed By: #### CMP #### [facility] ([facility]) [address] [place] [address] VIRPotassium [Moles/Vol]3.8 mmol/LNormal3.5-5.0ProEast [place] [facility] HospitalComment on above:Performed By: #### CMP #### [facility] ([facility]) [address] [place] [address] VIRProtein [Mass/Vol]6.1 g/dLNormal6.0-8.0ProEast [place] [facility] HospitalComment on above:Performed By: #### CMP #### [facility] ([facility]) [address] [place] [address] VIRSodium [Moles/Vol]141 mmol/RDmysyy218-165DdzZqefqy [place] HospitalComment on above:Performed By: #### CMP #### [facility] ([facility]) [address] [place] [address] VIRUrea nitrogen [Mass/Vol]15 mg/dLNormal5-27ProEast [place] [facility] HospitalComment on above:Performed By: #### CMP #### [facility] ([facility]) [address] [place] [address] VIRComprehensive metabolic panelon 22-60-8600Yrgiinn [Mass/Vol] 3.6 g/dL3.2 - 5.3 g/dLProMedica Health SystemALP [Catalytic activity/Vol]102 U/L 39 - 130 U/LProMedica Health SystemALT No additional P-5'-P [Catalytic activity/Vol]11 U/LNINF - 31 U/LProMedica Health SystemAnion gap [Moles/Vol]11 mmol/L5 - 15 mmol/LProMedica Health SystemAST [Catalytic activity/Vol]32 U/LNINF - 41 U/LProMedica Health SystemBilirubin [Mass/Vol]0.4 mg/dL0.3 - 1.2 mg/dL ProMedica Health SystemCalcium [Mass/Vol]8.4 mg/dLLow8.5 - 10.5 mg/dLProMedica Health SystemChloride [Moles/Vol]107 mmol/L98 - 109 mmol/LProMedica Health SystemCO2 [Moles/Vol]23 mmol/L22 - 32 mmol/LPrVibra Long Term Acute Care Hospital Health SystemCreatinine [Mass/Vol]0.65 mg/dL0.40 - 1.00 mg/dLLima Memorial HospitalComment on above: METHOD TRACEABLE TO IDMS STANDARDEGFR Non-Race Tdutcicin56- [facility]—Henrico CampusComment on above:Reported eGFR is based on the CKD-EPI 2020 equation that does not use a race coefficient. EGFR not calculated due to patient's gender not being defined. Glucose [Mass/Vol]158 mg/rINpiy35 - 99 mg/dLMercy Health Lorain Hospital SystemPotassium [Moles/Vol]3.8 mmol/L3.5 - 5.0 mmol/LProMedica Health SystemProtein [Mass/Vol] 6.1 g/dL6.0 - 8.0 g/dLProOhiohealth Dublin Methodist Hospital SystemSodium [Moles/Vol]141 mmol/L134 - 146 mmol/[facility] Health SystemUrea nitrogen [Mass/Vol]15 mg/dL5 - 27 mg/dL [facility] HospitalDRUG SCREEN, URINEon 72-25-5477RXWGSTDEYDN/METHAMP NegativeNormalNegativeOhioHealth Doctors HospitalComment on above:Result Comment: AMPH/METH screening cut off = 1000 ng/mLPerformed By: #### DSU #### [facility] ([facility]) [address] [place] [address] VIRBARBITURATESNegativeNormalNegativeOhioHealth Doctors Hospital Comment on above:Result Comment: Barbiturates screening cut off value = 200 ng/mLPerformed By: #### DSU #### [facility] ([facility]) [address] [place] [address] VIRBENZODIAZEPINESNegativeNormalNegativeOhioHealth Doctors HospitalComment on above:Result Comment: Benzodiazepines screening cut off value = 200 ng/mLPerformed By: #### DSU #### [facility] ([facility]) [address] [place] [address] VIRCANNABINOIDSNegativeNormalNegativeOhioHealth Doctors Hospital Comment on above:Result Comment: Cannabinoids/THC screening cut off value = 50 ng/mLPerformed By: #### DSU #### [facility] ([facility]) [address] [place] [address] VIRCOCAINE METABOLITENegativeNocarepartners rehabilitation hospitalNegMercy Health Kings Mills HospitalComment on above:Result Comment: Cocaine screening cut off value = 300 ng/mLPerformed By: #### DSU #### [facility] ([facility]) [address] [place] [address] VIRECSTASYNegativeNormalNegativeOhioHealth Doctors Hospital Comment on above:Result Comment: Ecstasy screening cut off value = 500 ng/mL Performed By: #### DSU #### [facility] ([facility]) [address] [place] [address] VIRMETHADONENegativeNormalNegativeOhioHealth Doctors Hospital Comment on above:Result Comment: Methadone screening cut off value = 300 ng/mL. Performed By: #### DSU #### [facility] ([facility]) [address] [place] [address] VIROPIATESNegativeNoAshtabula County Medical Center Comment on above:Result Comment: Opiates screening cut off value = 300 ng/mL This test is used for the detection of codeine, hydrocodone (>1000 ng/mL), morphine and hydromorphone (>900 ng/mL) in urine.Performed By: #### DSU #### [facility] ([facility]) [address] [place] [address] VIROXYCODONENegativeNormalNegMercy Health Kings Mills Hospital Comment on above:Result Comment: Oxycodone screening cut off value = 300 ng/mL This test is used for the detection of oxycodone and oxymorphone in urine.Performed By: #### DSU #### [facility] ([facility]) [address] [place] [address] VIRPHENCYCLIDINENegativeNocarepartners rehabilitation hospitalNegativeOhioHealth Doctors Hospital Comment on above:Result Comment: Phencyclidine screening cut off value = 25 ng/mLPerformed By: #### DSU #### [facility] ([facility]) [address] [place] [address] VIRDrug Screen, Urineon 37-69-9690Pfbfgquufhzg Screen method >1000 ng/mL Ql (U)NegativeNegativeProMedica Health SystemComment on above: AMPH/METH screening cut off = 1000 ng/mLBarbiturates Screen Ql (U)Negative NegativeProInfirmary West Health SystemComment on above:Barbiturates screening cut off value = 200 ng/mLBenzodiazepines Ql (U)NegativeNegativeNorth Country HospitalMedica Health System Comment on above:Benzodiazepines screening cut off value = 200 ng/mLCocaine Ql (U)NegativeNegativeProMedica Health SystemComment on above:Cocaine screening cut off value = 300 ng/mLInterpretation and review of laboratory resultsNormal ProMedica Health SystemMethadone (Mec) [Mass/Mass]NegativeNegativeProMedica Health SystemComment on above:Methadone screening cut off value = 300 ng/mL. Methylenedioxymethamphetamine Screen Ql (U)NegativeNegativeProMedica Health SystemComment on above:Ecstasy screening cut off value = 500 ng/mLOpiates Ql (U) NegativeNegativeProMedica Health SystemComment on above:Opiates screening cut off value = 300 ng/mL This test is used for the detection of codeine, hydrocodone (>1000 ng/mL), morphine and hydromorphone (>900 ng/mL) in urine. oxyCODONE [Mass/Vol]NegativeNegativeProOhiohealth Mansfield Hospitalca Health SystemComment on above: Oxycodone screening cut off value = 300 ng/mL This test is used for the detection of oxycodone and oxymorphone in urine. Phencyclidine Screen method >25 ng/mL Ql (U)NegativeNegativeProMedica Health SystemComment on above:Phencyclidine screening cut off value = 25 ng/mL Tetrahydrocannabinol Screen method >50 ng/mL Ql (U)NegativeNegativeProMedica Health SystemComment on above:Cannabinoids/THC screening cut off value = 50 ng/mLMercy Health Lorain Hospital SystemETHANOLon 90-50-1542Lkavdoi [Mass/Vol]mg/dLNormal <=0.080OhioHealth Doctors HospitalComment on above:Result Comment: This report is intended for use in clinical monitoring or management of patients.Performed By: #### ALCO #### [facility] ([facility]) [address] [place] [address] VIREthanolon 36-60-1065Wczisga Ql (U)g/dLNINF - 0.080 g/dL [facility] HospitalComment on above:This report is intended for use in clinical monitoring or management of patients. FIBRINOGENon 32-78-7751UFROUONQFH132 mg/cFNavhyj834-775AqaSyetuvOhioHealth Doctors Hospital Comment on above:Performed By: #### FIBR #### [facility] ([facility]) [address] [place] [address] VIRFibrinogenon 36-37-1854Tvsdpuvbsq Coagulation.derived (PPP) [Mass/Vol]358 mg/dL190 - 480 mg/dLLima Memorial HospitalLACTATE W/ REFLEXon 23-55-6118OJRENLR W/REFLEX2.0 mmol/LNormal0.4-2.0[facility] Comment on above:Order Comment: Result did not trigger repeat Lactate,re-order if needed.Performed By: #### DSU #### [facility] ([facility]) [address] [place] [address] VIRLIPASEon 26-95-2005Jlmnqz [Catalytic activity/Vol]U/LLow 11-82OhioHealth Doctors HospitalComment on above:Performed By: #### LIPA #### [facility] ([facility]) [address] [place] [id number] VIRLipaseon [id number] [Catalytic activity/Vol]U/LLow11 - 82 U/LProMedica Health SystemMAGNESIUMon [id number] [Mass/Vol]1.7 mg/dL Low1.8-2.6ProEast [facility] HospitalComment on above:Performed By: #### DSU #### [facility] ([facility]) [address] [id number] VIRMYOGLOBIN, SERUMon [id number] KOOPDYHDV5293.1 ng/mLHigh 14.3-65.8Pro[facility] HospitalComment on above:Performed By: #### DSU #### [facility] ([facility]) [address] [place] [address] VIRNo Panel Informationon [id number] and review of laboratory resultsNormSelect Specialty Hospital - [facility]rie SystemInterpretation and review of laboratory resultsAbnoAurora Medical Center System Interpretation and review of laboratory resultsNoFormerly [facility], [facility] ProMUnited Hospital SystemPHOSPHORUSon [id number] [Mass/Vol]2.8 mg/dL Normal2.4-4.9ProSelect Medical Specialty Hospital - Columbus SouthComment on above:Performed By: #### DSU #### [facility] ([facility]) [address] [address] [address] VIRPROTIME AND INRon [id number]PUpper Valley Medical CenterComment on above:Performed By: #### PINR #### [facility] ([facility]) [address] [place] [address] VIRPT Coag (PPP) [Time]11.4 sNormal9.8-13.2PMartin Memorial Hospital HospitalComment on above:Performed By: #### PINR #### [facility] ([facility]) [address] [place] [address] VIRProtime & INRon 99-34-2669MFY Coag (Platelet poor plasma or blood) [Relative time]10.9 - 1.2PMercy Health St. Vincent Medical CenterPT Coag (PPP) [Time]11.4 [facility] HospitalREPEATED ABORHon 35-91-2546TRW_GUHWEHYnlyfaOftSbakeu Santa HospitalComment on above:Performed By: #### DSU #### [facility] ([facility]) [address] [place] [address] VIRRH_INTEPPositiveNormalProMedica Santa HospitalComment on above:Performed By: #### DSU #### [facility] ([facility]) [address] [place] [address] VIRTYPE AND SCREENon 48-21-1239XQU_HKVUDABmcvdnLwjNodofi Santa HospitalComment on above:Performed By: #### DSU #### [facility] ([facility]) [address] [place] [address] VIRRH_INTEPPositiveNormalProMedica Santa HospitalComment on above:Performed By: #### DSU #### [facility] ([facility]) [address] [place] [address] VIRType and screen(includes indirect ellyn)on 68-13-7787ZQX and Rh group Nom (Bld)OProMedTuscarawas Hospital SystemABO and Rh group Nom (Bld)Positive [facility] HospitalBlood group antibody screen.cells I+II+III QlNegative [facility] SystemProOhiohealth Mansfield Hospitalca [facility] SystemURINALYSISon 79-95-3016Mkfouvezs Ql (U)NegativeNormalNegativeProMedica Santa HospitalComment on above:Performed By: #### UA #### [facility] ([facility]) [address] [place] [address] VIRBLOOD/HGBModerateAbnormalNegativeProMedica Santa Hospital Comment on above:Performed By: #### UA #### [facility] ([facility]) [address] [place] [address] VIRColor (U)YellowNormalYellowProMedica Santa HospitalComment on above:Performed By: #### UA #### [facility] ([facility]) [address] [place] [address] VIRGlucose Ql (U)NegativeNormalNegativeProMedica Denair HospitalComment on above:Performed By: #### UA #### [facility] ([facility]) [address] [place] [address] VIRKetones Ql (U)40 mg/dLAbnormalNegativeProMedica Denair HospitalComment on above:Performed By: #### UA #### [facility] ([facility]) [address] [place] [address] VIRLeukocyte esterase Test strip Ql (U)NegativeNormalNegative ProMedica Denair HospitalComment on above:Performed By: #### UA #### [facility] ([facility]) [address] [place] [address] VIRMUCOUSPresentAbnormalNoneProMedica Denair HospitalComment on above:Performed By: #### UA #### [facility] ([facility]) [address] [place] [address] VIRNitrite Ql (U)NegativeNormalNegativeProMedica Denair HospitalComment on above:Performed By: #### UA #### [facility] ([facility]) [address] [place] [address] VIRPH,URINE6.9Pvhifr6.0-8.5ProMedica Denair HospitalComment on above:Performed By: #### UA #### [facility] ([facility]) [address] [place] [address] VIRProtein Ql (U)30 mg/dLAbnormalNegativeProMedica Denair HospitalComment on above:Performed By: #### UA #### [facility] ([facility]) [address] [place] [address] VIRR.B.JAPJX6Kiay1-2FleHlfgwr Denair HospitalComment on above: Performed By: #### UA #### [facility] ([facility]) [address] [place] [address] VIRSpecific gravity (U) [Rel density]1.306Fgpbwf4.003-1.035 [facility] Behavioral Medical CenterComment on above:Performed By: #### UA #### [facility] ([facility]) [address] [place] [address] VIRSQUAMOUS EPITHELIUM<^7Bnsmaw9-2MteGrnyidUpper Valley Medical Center Comment on above:Performed By: #### UA #### [facility] ([facility]) [address] [place] [address] VIRTURBIDITYClearNormalClearProSelect Medical Specialty Hospital - Columbus SouthComment on above:Performed By: #### UA #### [facility] ([facility]) [address] [place] [address] VIRUROBILINOGEN<1.1 eu/dLNormal<1.1 eu/dLProSelect Medical Specialty Hospital - Columbus SouthComment on above:Performed By: #### UA #### [facility] ([facility]) [address] [place] [address] VIRW.B.QPXEA8Lwhzjt6-6ExsDmqxcr Toledo HospitalComment on above:Performed By: #### UA #### [facility] ([facility]) [address] [place] [address] VIRURINE CULTUREon 11-72-6224Lqrhkxei identified Cx Nom (U) CULTURE RESULTS <10,000 ORGANISMS/mL NORMAL URO GENITAL FLORANormalOhioHealth Doctors Hospital Comment on above:Performed By: #### CBCA #### [facility] ([facility]) [address] [place] [address] VIRUrinalysisOrdered By: Brooke Fraga on 54-27-9640Nofludzak Ql (U)NegativeNegativeProMedica Health SystemColor (U)YellowYellowProMedica Health SystemEpithelial cells Auto (Urine sed) [#/Area]0 - 5ProMedica Health SystemGlucose (U) [Mass/Vol]NegativeNegativeProMedica Health SystemHemoglobin Auto test strip Ql (U)ModerateAbnormalNegProMedica Memorial Hospital Interpretation and review of laboratory resultsAbnormalLima Memorial Hospital Ketones (U) [Mass/Vol]40 mg/dLAbnormalNegativeLima Memorial HospitalLeukocyte esterase Auto test strip Ql (U)NegativeNegativeLima Memorial HospitalMucus Ql (Urine sed)PresentAbnormNicholas H Noyes Memorial HospitalNitrite Auto test strip Ql (U)NegativeNegativeLima Memorial HospitalpH (U)6 [pH]5.0 - 8.5PMercy Health St. Vincent Medical CenterProtein (U) [Mass/Vol]30 mg/dLAbnormalNegativeLima Memorial HospitalRBC Auto (Urine sed) [#/Area]6High0 - 5PCone Health Wesley Long Hospitalpecific gravity Refractometry automated (U) [Rel density]1.011.003 - 1.035Lima Memorial HospitalTurbidity Ql (U)ClearClearPMercy Health St. Vincent Medical CenterUrobilinogen Qn (U) {Allison'U}/dL<1.1 eu/dLLima Memorial HospitalWBC Auto (Urine sed) [#/Area]30 - 5PPhysicians Care Surgical HospitalUrine Cultureon 05-16-2025 Bacteria identified Cx Nom (U)ORGANISM: Klebsiella variicola (O:CORBIN) [place] Count >100,000 Aerobic ROYAL Charge (NMIC56) SUSCEPTIBILITY ORGANISM: O:KLENESTOR ANTIBIOTIC INTERPRETATION ROYAL Amikacin S <16 Amoxacillin/K Clavulanate S <8 Ampicillin/Sulbactam S <4 Aztreonam S <4 Cefazolin S <2 Cefepime S <2 Ceftazidime S <1 Ceftriaxone S <1 Cefuroxime S <4 Ciprofloxacin S <0.25 Ertapenem S <0.5 Gentamicin S <2 Levofloxacin S <0.5 Meropenem S <1 Nitrofurantoin S <32 Piperacillin/Tazobactam S <8 Tetracycline S <4 Tigecycline S <2 Tobramycin S <2 Trimethoprim/Sulfamethoxazole S <0.5 S = SUSCEPTIBLE I = [...] RESISTANT TO ALL B-LACTAM DRUGS. PERFORMED BY: [place] [address] PATHOLOGIST DIRECTOR MEDICAL SAFETY RAVEN GARCIA M.D.[facility] Physician GroupComment on above: Performed By: #### CUU #### [place] [address] USAMM TOMOSYNTHESIS SCREENING BIon 47-58-9073[place] [address] Mammography Report Signed Patient: MEI GUARDADO MR#: [id number] : 1940 Acct:[id number] Age/Sex: 85 / F ADM Date: 03/19/25 Loc: MAMMO Attending Dr: OCHOA MEDINA Ordering Physician: OCHOA MEDINA Results: Date of Service: 03/19/25 Follow Up: Procedure(s): MM tomosynthesis screening BI Accession Number(s): [id number] cc: OCHOA MEDINA Patient Name: MEI GUARDADO MR#: [id number] : 1940 Exam Date: 03/19/2025 Ordering Doctor: [...] radiation therapy Family Cancers None LOCATION: [facility] BREAST COMPOSITION: There are scattered areas [...] Signed By: 03/19/25 1539 DD/ 1538 TD/TT: Photographic Equipment Assembler:TBHRadiology, Radiologist, MD - 03/19/2025 [facility] [place] [id number] Mammography Report Signed Patient: MEI GUARDADO MR#: [id number] : 1940 Acct:[id number] Age/Sex: 85 / F ADM Date: 03/19/25 Loc: MAMMO Attending Dr: OCHOA MEDINA Ordering Physician: OCHOA MEDINA Results: Date of Service: 03/19/25 Follow Up: Procedure(s): MM tomosynthesis screening BI Accession Number(s): [id number] cc: OCHOA MEDINA Patient Name: MEI GUARDADO MR#: [id number] : 1940 Exam Date: 03/19/2025 Ordering Doctor: DR OCHOA MEDINA M.D. RADIOLOGY REPORT PROCEDURE: MM TOMOSYNTHESIS SCREENING BI COMPARISON: MM TOMOSYNTHESIS SCREENING BI, 03/18/2024. MM TOMOSYNTHESIS SCREENING BI, 03/17/2023. MG MAMM SCREEN 3D NIC CAD, 03/16/2022. MG MAMM NCI DIAG W CAD DIG, 09/02/2013. INDICATIONS: Screening Calculator Name NCI Breast Cancer Risk Assessment Tool 5 Year Breast Cancer Risk Not Applicable. Lifetime Breast Cancer Risk Not Applicable. Personal Breast Cancer Yes, lt intraductal comeocarcinoma with necrosis Personal Ovarian Cancer No Treatments lumpectomy and radiation therapy Family Cancers None LOCATION: [facility] BREAST COMPOSITION: There are scattered areas [...] Signed By: 03/19/25 1539 DD/ 1538 TD/TT: Photographic Equipment Assembler: ANGEL [facility] - ColumbusRadiology Study observation (narrative)[facility] TOMOSYNTHESIS SCREENING BIOrdered By: Radiologist Radiology on 42-13-0623CNKLAlvin J. Siteman Cancer Center Work Phone: No Panel Informationon 54-41-1515ZGTAAlvin J. Siteman Cancer CenterCBC (INCLUDES DIFF/PLT)on 80-41-4021Irhtqxgcl (Bld) [#/Vol]0.013 10*3/uLNormal0-200 [facility] DiagnosticsComment on above:Performed By: #### [id number], 3199 #### [facility]ostics[facility]1 [address] Nurse Outreach Case Manager: Caroline Garcia #### 7600 #### [facility] [address] , [address] [place] [address] Nurse Outreach Case Manager: Ricardo Garcia MDBasophils/100 WBC (Bld)0.2 %NormalQuest DiagnosticsComment on above:Performed By: #### 10946, 6399 #### [facility]ostics[facility] [address] [place] [address] Nurse Outreach Case Manager: Caroline Garcia #### 7600 #### [facility] [address] , [address] [place], [place] [address] Nurse Outreach Case Manager: Ricardo Merati MDEosinophils (Bld) [#/Vol]0.04 10*3/uLNormal 15-500Quest DiagnosticsComment on above:Performed By: #### 02191, 6399 #### [facility] [address] [place] [address] Nurse Outreach Case Manager: Caroline Garcia #### 7600 #### [facility] [address], [address] [place] [address] Nurse Outreach Case Manager: Ricardo Garcia MDEosinophils/100 WBC (Bld)0.6 %NormalQuest DiagnosticsComment on above:Performed By: #### 91236, 6399 #### [facility] [address] [place] [address] Nurse Outreach Case Manager: Caroline Garcia #### 7600 #### [facility] [address], [address] [place] [address] Nurse Outreach Case Manager: Ricardo Garcia MDErythrocyte distribution width (RBC) [Ratio] 14.2 %Spvkaw48.0-15.0Quest DiagnosticsComment on above:Performed By: #### 84265, 6399 #### [facility] [address] [place] [address] Nurse Outreach Case Manager: Caroline Garcia #### 7600 #### [facility] [address], [address] [place] [address] Nurse Outreach Case Manager: Ricardo Garcia MDHematocrit (Bld) [Volume fraction]38.8 %Normal 35.0-45.0Quest DiagnosticsComment on above:Performed By: #### 50653, 6399 #### [facility] [address] [place] [address] Nurse Outreach Case Manager: Caroline Garcia #### 7600 #### [facility] [address], [address] [place] [address] Nurse Outreach Case Manager: Ricardo Garcia MDHemoglobin (Bld) [Mass/Vol]12.6 g/dLNormal 11.7-15.5Quest DiagnosticsComment on above:Performed By: #### 07605, 6399 #### [facility] [address] [place] [address] Nurse Outreach Case Manager: Caroline Garcia #### 7600 #### [facility] [address], [address] [place] [address] Nurse Outreach Case Manager: Ricardo Garcia MDLymphocytes (Bld) [#/Vol]0.878 10*3/uLNormal 850-3900Quest DiagnosticsComment on above:Performed By: #### 11154, 6399 #### [facility] [address] [place], [place] [address] Nurse Outreach Case Manager: Caroline Garcia #### 7600 #### [facility] [place] [address] Nurse Outreach Case Manager: Ricardo Garcia MDLymphocytes/100 WBC (Bld)13.1 %NormalQuest DiagnosticsComment on above:Performed By: #### 15531, 6399 #### [facility] [address] [place], [place] [address] Nurse Outreach Case Manager: Caroline Garcia #### 7600 #### [facility] [place] [address] Nurse Outreach Case Manager: Ricardo Garcia MDMCH (RBC) [Entitic mass]29.5 flVzckyr91.0-33.0 [facility] DiagnosticsComment on above:Performed By: #### 88560, 6399 #### [facility] [address] [place], [place] [address] Nurse Outreach Case Manager: Caroline Garcia #### 7600 #### [facility] [place] [address] Nurse Outreach Case Manager: Ricardo Garcia MDMCHC (RBC) [Mass/Vol]32.5 g/gOSfwnec32.0-36.0 [facility] DiagnosticsComment on above:Result Comment: For adults, a slight decrease in the calculated MCHC value (in the range of 30 to 32 g/dL) is most likely not clinically significant; however, it should be interpreted with caution in correlation with other red cell parameters and the patient's clinical condition.Performed By: #### 35313, 6399 #### [facility] [address] [place] [address] Nurse Outreach Case Manager: Caroline Garcia #### 7600 #### [facility] [place] [address] [address] [place] , [address] [place] [address] Nurse Outreach Case Manager: Ricardo Garcia MDMCV (RBC) [Entitic vol]90.9 lSZjghbi94.0-100.0 [facility] DiagnosticsComment on above:Performed By: #### 13152, 6399 #### [facility] [address] [place] [address] Nurse Outreach Case Manager: Caroline Garcia #### 7600 #### [facility] [place] [address] [address] [place] , [address] [place] [address] Nurse Outreach Case Manager: Ricardo Garcia MDMonocytes (Bld) [#/Vol]0.382 10*3/uLNormal 200-950Quest DiagnosticsComment on above:Performed By: #### 72538, 6399 #### [facility] [address] [place] [address] Nurse Outreach Case Manager: Caroline Garcia #### 7600 #### [facility] [place] [address], [address] [place] [address] Nurse Outreach Case Manager: Ricardo Garcia MDMonocytes/100 WBC (Bld)5.7 %NormalQuest DiagnosticsComment on above:Performed By: #### 09112, 6399 #### [facility] [address] [place] [address] Nurse Outreach Case Manager: Caroline Garcia #### 7600 #### [facility] [place] [address], [address] [place] [address] Nurse Outreach Case Manager: Ricardo Garcia MDNeutrophils (Bld) [#/Vol]5.387 10*3/uLNormal 1500-7800Quest DiagnosticsComment on above:Performed By: #### 21738, 6399 #### [facility] [address] [place] [address] Nurse Outreach Case Manager: Caroline Garcia #### 7600 #### [facility] [place] [address] [place] , [address] [place] [address] Nurse Outreach Case Manager: Ricardo Garcia MDNeutrophils/100 WBC (Bld)80.4 %NormalQuest DiagnosticsComment on above:Performed By: #### 50359, 6399 #### [facility] [address] [place] [address] Nurse Outreach Case Manager: Caroline Garcia #### 7600 #### [facility] [place] [address] [place] , [address] [place] [address] Nurse Outreach Case Manager: Ricardo Garcia MDPlatelet mean volume (Bld) [Entitic vol]10.6 fLNormal7.5-12.5Quest DiagnosticsComment on above:Performed By: #### 60876, 6399 #### [facility] [address] [place] [address] Nurse Outreach Case Manager: Caroline Garcia #### 7600 #### [facility] [place] [address] [place] , [address] [place] [address] Nurse Outreach Case Manager: Ricardo Garcia MDPlatelets (Bld) [#/Vol]240 10*3/uLNormal 140-400Quest DiagnosticsComment on above:Performed By: #### 77289, 6399 #### [facility] [address] [place] [address] Nurse Outreach Case Manager: Caroline Garcia #### 7600 #### [facility] [address] , [address] [place] [address] Nurse Outreach Case Manager: Ricardo Garcia MDRBC (Bld) [#/Vol]4.27 10*6/uLNormal3.80-5.10 [facility] DiagnosticsComment on above:Performed By: #### 77475, 6399 #### [facility] [address] [place] [address] Nurse Outreach Case Manager: Caroline Garcia #### 7600 #### [facility] [address], [address] [place] [address] Nurse Outreach Case Manager: Ricardo Garcia [facility] ([facility]) [#/Vol]6.7 10*3/uLNormal3.8-10.8 [facility] DiagnosticsComment on above:Performed By: #### 41789, 6399 #### [facility] [address] [place], [place] [address] Nurse Outreach Case Manager: Caroline Garcia #### 7600 #### [facility] [address], [address] [place] [address] Nurse Outreach Case Manager: Ricardo Garcia MDCOMPREHENSIVE METABOLIC PANELon 09-14-2024 Albumin [Mass/Vol]3.6 g/dLNormal3.6-5.1Quest DiagnosticsComment on above: Performed By: #### 44627, 6399 #### [facility] [address] [place] [address] Nurse Outreach Case Manager: Caroline Garcia #### 7600 #### [facility] [address], [address] [place] [address] Nurse Outreach Case Manager: Ricardo Garcia MDAlbumin/Globulin [Mass ratio]1.5 {ratio}Normal 1.0-2.5Quest DiagnosticsComment on above:Performed By: #### 70390, 6399 #### [facility] [address] [place] [address] Nurse Outreach Case Manager: Caroline Garcia #### 7600 #### [facility] [address], [address] [place] [address] Nurse Outreach Case Manager: Ricardo Garcia MDALP [Catalytic activity/Vol]107 U/LNormal 37-153Quest DiagnosticsComment on above:Performed By: #### 08299, 6399 #### [facility] [address] [place] [address] Nurse Outreach Case Manager: Caroline Garcia #### 7600 #### [facility] [address], [address] [place] [address] Nurse Outreach Case Manager: Ricardo Garcia MDALT [Catalytic activity/Vol]12 U/LNormal6-29 [facility] DiagnosticsComment on above:Performed By: #### 01080, 6399 #### [facility] [address] [place] [address] Nurse Outreach Case Manager: Caroline Garcia #### 7600 #### [facility] [address], [address] [place] [address] Nurse Outreach Case Manager: Ricardo Garcia MDAST [Catalytic activity/Vol]16 U/ZImvzkg84-41 [facility] DiagnosticsComment on above:Performed By: #### 79499, 6399 #### [facility] [address] [place], [place] [address] Nurse Outreach Case Manager: Caroline Garcia #### 7600 #### [facility] [address], [address] [place] [address] Nurse Outreach Case Manager: Ricardo Garcia MDBilirubin [Mass/Vol]0.4 mg/dLNormal0.2-1.2 [facility] DiagnosticsComment on above:Performed By: #### 45365, 6399 #### [facility] [address] [place], [place] [address] Nurse Outreach Case Manager: Caroline Garcia #### 7600 #### [facility] [address], [address] [place] [address] Nurse Outreach Case Manager: Ricardo Garcia MDBUN/CREATININE RATIOSEE NOTE:Normal6-Quest DiagnosticsComment on above:Result Comment: Not Reported: BUN and Creatinine are within reference range.Performed By: #### 93498, 6399 #### [facility] [address] [place] [address] Nurse Outreach Case Manager: Caroline Garcia #### 7600 #### [facility] [place] [address], [address] [place] [address] Nurse Outreach Case Manager: Ricardo Garcia MDCalcium [Mass/Vol]8.7 mg/dLNormal8.6-10.4Quest DiagnosticsComment on above:Performed By: #### 90026, 6399 #### [facility] [address] [place] [address] Nurse Outreach Case Manager: Caroline Garcia #### 7600 #### [facility] [address], [address] [place] [address] Nurse Outreach Case Manager: Ricardo Garcia MDChloride [Moles/Vol]109 mmol/JGasmai38-797 [facility] DiagnosticsComment on above:Performed By: #### 91844, 6399 #### [facility] [address] [place] [address] Nurse Outreach Case Manager: Caroline Garcia #### 7600 #### [facility] [address], [address] [place] [address] Nurse Outreach Case Manager: Ricardo Garcia MDCO2 [Moles/Vol]28 mmol/TJbctik84-48Qqakh DiagnosticsComment on above:Performed By: #### 31375, 6399 #### [facility] [address] Nurse Outreach Case Manager: Caroline Garcia #### 7600 #### [facility] [place] [address] [place] , [address] [place] [address] Nurse Outreach Case Manager: Ricardo Garcia MDCreatinine [Mass/Vol]0.62 mg/dLNormal0.60-0.95 [facility] DiagnosticsComment on above:Performed By: #### 02175, 6399 #### [facility] [address] [place] [address] Nurse Outreach Case Manager: Caroline Garcia #### 7600 #### [facility] [place] [address] [place] , [address] [place] [address] Nurse Outreach Case Manager: Ricardo Garcia MDGFR/1.73 sq M.predicted among non-blacks MDRD (S/P/Bld) [Vol rate/Area]87 mL/min/{1.73_m2}Normal> OR = 60[facility] Comment on above:Performed By: #### 68694, 6399 #### [facility] [address] [place] [address] Nurse Outreach Case Manager: Caroline Garcia #### 7600 #### [facility] [address], [address] [place] [address] Nurse Outreach Case Manager: Ricardo Garcia MDGlobulin (S) [Mass/Vol]2.4 g/dLNormal1.9-3.7 [facility] DiagnosticsComment on above:Performed By: #### 89162, 6399 #### [facility] [address] [place] [address] Nurse Outreach Case Manager: Caroline Garcia #### 7600 #### [facility] [address], [address] [place] [address] Nurse Outreach Case Manager: Ricardo Garcia MDGlucose [Mass/Vol]96 mg/eZXhnieb68-15Soxpa DiagnosticsComment on above:Result Comment: Fasting reference intervalPerformed By: #### 57584, 6399 #### [facility] [address] [place] [address] Nurse Outreach Case Manager: Caroline Garcia #### 7600 #### [facility] [address], [address] [place], [place] [address] Nurse Outreach Case Manager: Ricardo ROLDANotassium [Moles/Vol]3.9 mmol/LNormal3.5-5.3 [facility] DiagnosticsComment on above:Performed By: #### 92871, 6399 #### [facility] [address] [place] [address] Nurse Outreach Case Manager: Caroline Garcia #### 7600 #### [facility] [address], [address] [place] [address] Nurse Outreach Case Manager: Ricardo Garcia MDProtein [Mass/Vol]6.0 g/dLLow6.1-8.1Quest DiagnosticsComment on above:Performed By: #### 37655, 6399 #### [facility] [address] [place] [address] Nurse Outreach Case Manager: Caroline Garcia #### 7600 #### [facility] [address], [address] [place] [address] Nurse Outreach Case Manager: Ricardo Garcia MDSodium [Moles/Vol]143 mmol/LHlafbm494-424Xoxad DiagnosticsComment on above:Performed By: #### 95160, 6399 #### [facility] [address] Nurse Outreach Case Manager: Caroline Garcia #### 7600 #### [facility] [address], [address] [place] [address] Nurse Outreach Case Manager: Ricardo Garcia MDUrea nitrogen [Mass/Vol]16 mg/dLNormal7-25 [facility] DiagnosticsComment on above:Performed By: #### 76591, 6399 #### [facility] [address] [place] [address] Nurse Outreach Case Manager: Caroline Garcia #### 7600 #### [facility] [address], [address] [place] [address] Nurse Outreach Case Manager: Ricardo Garcia MDLIPID PANEL, STANDARD 73-01-3043Wdncmimwsbn [Mass/Vol]276 mg/dLHigh<200Quest DiagnosticsComment on above:Order Comment: FASTING:YES FASTING: YESPerformed By: #### 27839, 6399 #### [facility] [address] [place] [address] Nurse Outreach Case Manager: Caroline Garcia #### 7600 #### [facility] [address], [address] [place] [address] Nurse Outreach Case Manager: Ricardo Garcia MDCholesterol in HDL [Mass/Vol]82 mg/dLNormal> OR = 50Quest DiagnosticsComment on above:Order Comment: FASTING:YES FASTING: YESPerformed By: #### 85638, 6399 #### [facility] [address] [place] [address] Nurse Outreach Case Manager: Caroline Garcia #### 7600 #### [facility] [address], [address] [place], [place] [address] Nurse Outreach Case Manager: Ricardo Garcia MDCholesterol in LDL [Mass/Vol]171 mg/dLHigh [facility] DiagnosticsComment on above:Order Comment: FASTING:YES FASTING: YESResult Comment: Reference range: <100 Desirable range <100 mg/dL for primary prevention; <70 mg/dL for patients with CHD or diabetic patients with > or = 2 CHD risk factors. LDL-C is now calculated using the Hubert calculation, which is a validated novel method providing better accuracy than the Friedewald equation in the estimation of LDL-C. Cameron REYNOLDS et al. SOL. 2013;310(19): 9110-1730 (http://education.VB Rags.Netragon/faq/JFA783)Performed By: #### 16802, 1808 #### [facility] [address] [place] [address] Nurse Outreach Case Manager: Caroline Garcia #### 7600 #### [facility] [address], [address] [place], [place] [address] Nurse Outreach Case Manager: Ricardo Garcia MDCholesteroandrea.total/Cholesterol in HDL [Mass ratio]3.4 {ratio}Normal<5.0Quest DiagnosticsComment on above:Order Comment: FASTING:YES FASTING: YESPerformed By: #### 31713, 9699 #### [facility] [address] [place] [address] Nurse Outreach Case Manager: Caroline Garcia #### 7600 #### [facility] [address], [address] [place] [phone] Nurse Outreach Case Manager: Ricardo Garcia MDNON HDL KETSIECZFOY797 mg/dL (calc)High<130 [facility] DiagnosticsComment on above:Order Comment: FASTING:YES FASTING: YESResult Comment: For patients with diabetes plus 1 major ASCVD risk factor, treating to a non-HDL-C goal of <100 mg/dL (LDL-C of <70 mg/dL) is considered a therapeutic option.Performed By: #### 33978, 6399 #### [facility] [address] [place] [address] Nurse Outreach Case Manager: Caroline Garcia #### 7600 #### [facility] [address], [address] [place], [place] [address] Nurse Outreach Case Manager: Ricardo Garcia MDTriglyceride [Mass/Vol]108 mg/dLNormal<150 [facility] DiagnosticsComment on above:Order Comment: FASTING:YES FASTING: YESPerformed By: #### 34707, 6399 #### [facility] [address] [place] [address] Nurse Outreach Case Manager: Caroline Garcia #### 7600 #### [facility] [address], [address] [place] [address] Nurse Outreach Case Manager: Ricardo Garcia MDVITAMIN D,25-OH,TOTAL,IAon 48-50-1995GPGDRQV D,25-OH,TOTAL,IA31 ng/fRDzqlfm19-498Kvmgb DiagnosticsComment on above:Result Comment: Vitamin D Status 25-OH Vitamin D: Deficiency: <20 ng/mL Insufficiency: 20 - 29 ng/mL Optimal: > or = 30 ng/mL For 25-OH Vitamin D testing on patients on D2-supplementation and patients for whom quantitation of D2 and D3 fractions is required, the QuestAssureD(TM) 25-OH VIT D, (D2,D3), LC/MS/MS is recommended: order code 44424 (patients >2yrs). See Note 1 Note 1 For additional information, please refer to http://education.[employer]/faq/BPR389 (This link is being provided for informational/ educational purposes only.)Performed By: #### 97766, 6399 #### [facility] [address] [place] [address] Nurse Outreach Case Manager: Caroline Garcia #### 7600 #### [facility] [address] [facility], [address] [place] [address] Nurse Outreach Case Manager: Ricardo Garcia MDXR RIBS 2 VIEWS LEFT WITH CHEST ANTEROPOSTERIORon 88-21-6332QS RIBS 2 VIEWS LEFT WITH CHEST ANTEROPOSTERIORExam: XR RIBS 2 VIEWS LEFT WITH CHEST [...] electronically signed and approved by the interpreting radiologist.NormalNot AvailableXR Ribs Views and Chest PAon 53-69-0214Rynj: XR RIBS 2 VIEWS LEFT WITH CHEST [...] and approved by the interpreting radiologist. Mikey Guardado MD - 09/06/2024 Exam: XR RIBS 2 [...] signed and approved by the interpreting radiologist. [facility] HealthcareRadiology Study observation (narrative)[facility] Cancer CenterXR Ribs Views and Chest PAOrdered By: Mikey Nguyen on 63-38-6631TNXJ Ti Knight Work Phone: mm TOMOSYNTHESIS SCREENING BIon 98-15-1523Ms[place] [address] Mammography Report Signed Patient: MEI GUARDADO MR#: [id number] : 1940 Acct:[id number] Age/Sex: 84 / F ADM Date: 03/18/24 Loc: MAMMO Attending Dr: OCHOA MEDINA Ordering Physician: OCHOA MEDINA Results: Date of Service: 03/18/24 Follow Up: Procedure(s): MM tomosynthesis screening BI Accession Number(s): [id number] cc: OCHOA MEDINA Patient Name: MEI GUARDADO MR#: [id number] : 1940 Exam Date: 03/18/2024 Ordering Doctor: DR OCHOA MEDINA M.D. RADIOLOGY [...] radiation therapy Family Cancers None LOCATION: [facility] BREAST COMPOSITION: There are scattered areas [...] PALPABLE LUMP SHOULD BE BIOPSIED. Dictated by: Moises Wolfe MD on 03/18/2024 at 09:11 Approved by: Moises Wolfe MD on 03/18/2024 at 09:14 Dictated By: Moises Wolfe M.D. Signed By: 03/18/24914 DD/ 3 TD/TT: Photographic Equipment Assembler:TBHRadiology, RadiologistMD - 03/18/2024 [place] [address] Mammography Report Signed Patient: MEI GUARDADO MR#: [id number] : 1940 Acct:[id number] Age/Sex: 84 / F ADM Date: 03/18/24 Loc: MAMMO Attending Dr: OCHOA MEDINA Ordering Physician: OCHOA MEDINA Results: Date of Service: 03/18/24 Follow Up: Procedure(s): MM tomosynthesis screening BI Accession Number(s): [id number] cc: OCHOA MEDINA Patient Name: MEI GUARDADO MR#: [id number] : 1940 Exam Date: 03/18/2024 Ordering Doctor: DR OCHOA MEDINA M.D. RADIOLOGY [...] radiation therapy Family Cancers None LOCATION: [facility] BREAST COMPOSITION: There are scattered areas [...] PALPABLE LUMP SHOULD BE BIOPSIED. Dictated by: Moises Wolfe MD on 03/18/2024 at 09:11 Approved by: Moises Wolfe MD on 03/18/2024 at 09:14 Dictated By: Moises Wolfe M.D. Signed By: 03/18/24914 DD/ 3 TD/TT: Photographic Equipment Assembler: [facility] Cancer CenterRadiology Study observation (narrative)[facility] TOMOSYNTHESIS SCREENING BIOrdered By: Radiologist Radiology on 61-06-2721BAVRAlvin J. Siteman Cancer Center Work Phone: XR DEXA AXIAL SKELETONon 50-22-8422G[address] [address] XRay Report Signed Patient: MEI GUARDADO MR#: [id number] : 1940 Acct:[id number] Age/Sex: 83 / F ADM Date: 09/08/23 Loc: RAD Attending Dr: OCHOA MEDINA Ordering Physician: OCHOA MEDINA Date of Service: 09/08/23 Procedure(s): XR DEXA axial skeleton Accession Number(s): [id number] cc: OCHOA MEDINA [address] [address] Patient Name: MEI GUARDADO MRN: [id number] date: 1940 Sex: F Assigned Patient Location: RAD Current Patient Location: RAD Accession/Order Number: [id number] Exam Date: 09/08/2023 08:00 Report Date: 09/08/2023 08:49 At the request of: OCHOA MEDINA Procedure: XR DEXA axial skeleton EXAMINATION: XR DEXA axial skeleton, 09/08/2023 8:00 AM EST HISTORY: Age Related Osteoporosis COMPARISON: 2020, 2018, 2014, 2011. TECHNIQUE: Dual-energy X-ray absorptiometry (DEXA) bone [...] Moderate fracture risk Electronically authenticated by: MOISES WOLFE Date: 09/08/2023 08:49 Dictated By: Moises Wolfe M.D. Signed By: 09/08/2352 DD/ TD/TT: Photographic Equipment Assembler:TBHRadiology, Radiologist, - 09/08/2023 [place] [address] XRay Report Signed Patient: MEI GUARDADO MR#: [id number] : 1940 Acct:[id number] Age/Sex: 83 / F ADM Date: 09/08/23 Loc: SCOUT Attending Dr: OCHOA MEDINA Ordering Physician: OCHOA MEDINA Date of Service: 09/08/23 Procedure(s): XR DEXA axial skeleton Accession Number(s): [id number] cc: OCHOA MEDINA [place] [id number] Patient Name: MEI GUARDADO MRN: [id number] date: 1940 Sex: F Assigned Patient Location: RAD Current Patient Location: RAD Accession/Order Number: [id number] Exam Date: 09/08/2023 08:00 Report Date: 09/08/2023 08:49 At the request of: OCHOA MEDINA Procedure: XR DEXA axial skeleton EXAMINATION: XR DEXA axial skeleton, 09/08/2023 8:00 AM EST HISTORY: Age Related Osteoporosis COMPARISON: 2020, 2018, 2014, 2011. TECHNIQUE: Dual-energy X-ray absorptiometry (DEXA) bone [...] Moderate fracture risk Electronically authenticated by: MOISES WOLFE Date: 09/08/2023 08:49 Dictated By: Moises Wolfe M.D. Signed By: 09/08/2352 DD/ TD/TT: Photographic Equipment Assembler: [facility]SSte[facility] HealthcareRadiology Study observation (narrative)[facility] HealthcareXR DEXA AXIAL SKELETONOrdered By: Radiologist Radiology on 51-06-0645PHSX Ti Knight Work Phone: mg MAMM SCREEN 3D NIC CADon 40-03-7822SO MAMM SCREEN 3D NIC CADPatient: MEI GUARDDAOMelvin Exam Date: 03/16/2022 : 1940 Gender:F Ordering : DR OCHOA MEDINA M.D. Admission #: [id number] Family : Order #: [id number] CLICK HERE TO VIEW EXAM RADIOLOGY REPORT [...] radiation therapy Family Cancers None LOCATION: [facility] BREAST COMPOSITION: Scattered areas fibroglandular density. FINDINGS: [...] by: Brisa Flores M.D. on 03/16/2022 at 11:42NormAdams County HospitalRESPIRATORY PANEL PLUSon 42-76-5187GvzjocyrhvSib detectedNormalNOT DETECTEDThe [facility]y HospitalComment on above:Performed By: #### RSPLUS #### [facility] [address] [place] [address] Dr. Khurram Gregorio ParapertusisNot detectedNormalNOT DETECTEDThe [facility] HospitalComment on above:Performed By: #### RSPLUS #### [facility] [address] [place] [address] Dr. Khurram Gregorio PertussisNot detectedNormalNOT DETECTEDThe [facility] on above:Performed By: #### RSPLUS #### [facility] [address] [place] [address] Dr. Khurram MontielChlamydia PneumoniaeNot detectedNormalNOT DETECTEDThe [facility] HospitalComment on above:Performed By: #### RSPLUS #### [facility] [address] [place] [address] [address] Khurram MontielCoronavirus 229ENot detectedNormalNOT DETECTEDThe [facility] HospitalCombeaumont hospital on above:Performed By: #### RSPLUS #### [facility] [address] [place] [address] Dr. Khurram Wigginsronavirus ZFB8Vns detectedNormalNOT DETECTEDThe [facility] HospitalComment on above:Performed By: #### RSPLUS #### [facility] [address] [place] [address] Dr. Khurram MontielCoronavirus YW39Jyh detectedNormalNOT DETECTEDThe [facility] HospitalComment on above:Performed By: #### RSPLUS #### [facility] [address] [place] [address] Dr. Khurram MontielCoronavirus ES78Uat detectedNormalNOT DETECTEDThe [facility] HospitalComment on above:Performed By: #### RSPLUS #### [facility] [address] [place] [address] [address] Khurram Jones H1 2009Not detectedNormalNOT DETECTEDThe [facility] HospitalComment on above:Performed By: #### RSPLUS #### [facility] [address] [place] [address] [address] Khurram Jones H3Not detectedNormalNOT DETECTEDThe [facility] Comment on above:Performed By: #### RSPLUS #### [facility] [address] [place] [address] [address] Khurram Van BNot detectedNormalNOT DETECTEDThe [facility] Comment on above:Performed By: #### RSPLUS #### [facility] [address] [place] [address] [address] Khurram KelleyapneumovirusNot detectedNormalNOT DETECTEDThe [facility] HospitalCombeaumont hospital on above:Performed By: #### RSPLUS #### [facility] [address] [place] [address] [address] Khurram Fox. PneumoniaeNot detectedNormalNOT DETECTEDThe [facility] HospitalComment on above:Performed By: #### RSPLUS #### [facility] [address] [place] [address] [address] Khurram Jennings 1Not detectedNormalNOT DETECTEDThe [facility] HospitalComment on above:Performed By: #### RSPLUS #### [facility] [address] [place] [address] [address] Khurram Jennings 2Not detectedNormalNOT DETECTEDThe [facility] HospitalComment on above:Performed By: #### RSPLUS #### [facility] [address] [place] [address] [address] Khurram Jennings 3Not detectedNormalNOT DETECTEDThe [facility] HospitalCombeaumont hospital on above:Performed By: #### RSPLUS #### [facility] [address] [place] [address] [address] Khurram Jennings 4Not detectedNormalNOT DETECTEDThe [facility] HospitalComment on above:Performed By: #### RSPLUS #### [facility] [address] [place] [address] [address] Khurram MontielRhino/EnterovirusNot detectedNormalNOT DETECTEDThe [facility] HospitalComment on above:Performed By: #### RSPLUS #### [facility] [address] [place] [address] [address] Khurram Crowe Header 1RESPIRATORY PANEL: VIR[facility]ESC[facility] Comment on above:Performed By: #### RSPLUS #### [facility] [address] [place] [address] Dr. Khurram Crowe Header 2RESPIRATORY PANEL: BACTERIANoSt. Vincent HospitalComment on above:Performed By: #### RSPLUS #### [facility] [address] [place] [address] Dr. Khurram SeoVNot detectedNormalNOT DETECTEDThe [facility] HospitalComment on above:Performed By: #### RSPLUS #### [facility] [address] [place] [address] Dr. Khurram Vitale-CoV-2 (COVID-19) RNA OKSANA+probe Ql (Unsp spec)Not detected NormalNOT DETECTEDThe [facility]y HospitalComment on above:Performed By: #### RSPLUS #### [facility] [address] [place] [address] Dr. Khurram Quinn Quick Testingon 43-02-5432NaksxfLxcreaxoCazpp Emu Messenger Other XR DEXA BONE DENSITYon 37-86-0066CN DEXA BONE DENSITY EXAMINATION: XR DEXA BONE DENSITY, 06/15/2021 7:54 AM EDT HISTORY: Adult health examination COMPARISON: 2018, 2016, 2012 TECHNIQUE: Dual-energy X-ray absorptiometry (DEXA) bone density study performed for the axial skeleton. FINDINGS: Bone mineral density AP spine L2-L4 measures 1.056 g/sq cm. Young adult T score -1.2. WHO classification: Osteopenia. Lowest bone mineral density right femoral neck measuring 0.762 g/sq cm. T score -2.0. WHO classification: Osteopenia IMPRESSION: Osteopenia. Moderate fracture risk Electronically authenticated by: MOISES WOLFE Date: 2021-06-15 08:27[facility] Vital Signs Date TimeVital SignValuePerforming CddnuzxenLjuahdki87-30-7148 13:18-0400Body iuzlqc579.4 Jeffrey Medina MD Work Phone: [facility]OCenterPointe HospitalIzzbwwexew72-11-5254 13:18-0400Body mass index (BMI) [Ratio]22.62 kg/k8ZdbneOchoa Medina MD Work Phone: [facility]OCenterPointe HospitalDelgglkwch28-40-5765 13:18-0400Body .6 kg Ochoa Medina MD Work Phone: [phone])[facility]6958[facility] Cancer CenterYuwpnxnwtv73-04-9596 13:18-0400Diastolic blood brkkpilw92 mm[Hg]Ochoa Medina MD Work Phone: [phone] HospitalNrdlwbhpkt36-71-2172 13:18-0400Heart rate63 /min Ochoa Medina MD Work Phone: [phone])[facility]7247[facility] Cancer CenterMavdiuryyw27-25-6045 13:18-9634RbD5% (BldA) [Mass fraction]97 %Ochoa Medina MD Work Phone: [phone] HospitalBieozpyufv92-51-0473 13:18-0400Systolic blood kdsoqxya484 mm[Hg]Ochoa Medina MD Work Phone: [phone] HospitalJlftybupxz00-79-1825 14:16-0400Body eeppnz193.4 Jeffrey Medina MD Work Phone: [phone] HospitalLempbqzmer75-15-6386 14:16-0400Body mass index (BMI) [Ratio]22.94 kg/x3RrjzlOchoa Medina MD Work Phone: [phone] HospitalKnnltsiicb24-13-7735 14:16-0400Body asywlf11.5 kg Ochoa Medina MD Work Phone: [facility]enterPo[facility] HospitalRvnfbrnnpv94-77-7635 14:16-0400Diastolic blood mzpuyfag15 mm[Hg]Ochoa Medina MD Work Phone: [facility]OCenterPo[facility] HospitalJqyzspiknu78-69-8237 14:16-0400Heart rate92 /min Ochoa Medina MD Work Phone: [facility] CenterNpyipfesqs32-77-6736 14:16-9422VtP2% (BldA) [Mass fraction]97 %Ochoa Medina MD Work Phone: [place] [address]Kkotkmkgjc34-19-2269 14:16-0400Systolic blood waejirpk914 mm[Hg]Ochoa Medina MD Work Phone: 1(528)[facility]-[address] [place], [place] [address]Ljucbiiwwn71-26-1840 14:32-0400Body hakflw007.4 cmKaren Hemmer PA Work Phone: [phone])[facility] [place], [place] [address]Royvzrvgku88-78-9011 14:32-0400Body mass index (BMI) [Ratio]22.45 kg/f8Bdtrn Hemmer PA Work Phone: [facility] CenterRkaqbjdeif51-78-4645 14:32-0400Body .14 kgKaren Hemmer PA Work Phone: [phone])[facility]-[address] [place], [place] [address]Zopltumcee51-15-6548 14:32-0400Diastolic blood zfkkyeph23 mm[Hg]Buck Hemmer PA Work Phone: [facility] CenterOixiqfyfvg63-49-3008 14:32-0400Heart rate64 /min Buck Hemmer PA Work Phone: [phone])[facility]-[address] [place], [place] [address]Aybaypkvda85-59-8181 14:32-0400Respiratory rate16 /minKaren Hemmer PA Work Phone: [phone])[facility]-0805Al[facility] Cancer CenterTsdzjxvujj66-00-5739 14:32-6363EhN2% (BldA) [Mass fraction]99 %Buck Hemmer PA Work Phone: [facility] CenterSixgfqmetq65-83-4656 14:32-0400Systolic blood tckwapia97 mm[Hg]Buck Hemmer PA Work Phone: [phone] [place], [place] [address]Qjtodbcjlq73-43-0139 13:44-0400Diastolic blood igtabgpg07 mm[Hg]Wilfredo Moreau MD Work Phone: [facility]08-26-2025 13:44-0400Heart rate 86 /minDjuliana Moreau MD Work Phone: [phone] [place], [place] [address]90708-26-2025 13:44-0400 Respiratory rate25 /Jr Moreau MD Work Phone: [phone])[address] [place], [place] 9934608-26-2025 13:44-9566IiE8% (BldA) [Mass fraction]94 %Wilfredo Moreau MD Work Phone: [phone])[address] [place], [place] 9934608-26-2025 13:44-0400Systolic blood efxsqlfh727 mm[Hg]Wilfredo Moreau MD Work Phone: [phone] [place], [place] 9934608-26-2025 07:16-0400Body sgpvfhqnruw66.9 [degF]Wilfredo Moreau MD Work Phone: [phone] [place], [place] 9934608-25-2025 01:00-0400Body mass index (BMI) [Ratio]27.15 kg/j6ElxapwWilfredo Moreau MD Work Phone: [phone] [place], [place] 9934608-25-2025 01:00-0400Body mejggk42.3 kgWilfredo Moreau MD Work Phone: [phone])[address] [place], [place] 9934608-23-2025 01:20-0400Body ghfybx369.6 cmWilfredo Moreau MD Work Phone: [phone] [place], [place] 9934606-24-2025 08:36-0400Diastolic blood fplrpxin68 mm[Hg]Buck Hemjoan PA Work Phone: [facility] CenterFertnhcecz16-12-5325 08:36-0400Systolic blood vohyswwe741 mm[Hg]Buck Hemmer PA Work Phone: [facility] CenterRsrcyxgibk19-66-1796 08:23-0400Body luqfgr083.4 cmFredyen Hemmer PA Work Phone: [facility] CenterKklwrkiclr94-52-0188 08:23-0400Body mass index (BMI) [Ratio]24.58 kg/l6Wubka Hemmer PA Work Phone: [facility] CenterAnxixtzuqp88-44-0007 08:23-0400Body tttmok99.04 kgKaren Hemmer PA Work Phone: noCenterPointe HospitalXdfxxvrucq72-84-4571 08:23-0400Heart rate60 /min Buck Hemmer PA Work Phone: [facility] CenterJqpyucybuo12-19-2366 08:23-3472RhC1% (BldA) [Mass fraction]97 %Buck Hemmer PA Work Phone: [facility] CenterFgmzqhphcj49-00-0638 09:37-0400Body wspple051.4 cmKaren Hemmer PA Work Phone: [facility] CenterCxmhykuzlv11-51-8260 09:37-0400Body mass index (BMI) [Ratio]25.24 kg/a9Xvpyo Hemmer PA Work Phone: [facility] CenterRhpxogvbnw49-46-8242 09:37-0400Body temperature 97.7 [degF]Buck Hemmer PA Work Phone: [facility] CenterUrndyfmrrb20-85-4639 09:37-0400Body .85 kgKaren Hemmer PA Work Phone: [facility] CenterHszcqatvuw17-52-4722 09:37-0400Diastolic blood pfrpotit63 mm[Hg]Buck Hemmer PA Work Phone: [facility] CenterGkfskzcwvk21-92-5871 09:37-0400Heart rate64 /min Buck Hemmer PA Work Phone: [facility] CenterNqsntpxmnq60-58-0721 09:37-0400Respiratory rate16 /minKaren Hemmer PA Work Phone: [facility] CenterMzrxczdcsf33-06-0103 09:37-2378XfN0% (BldA) [Mass fraction]99 %Buck Hemmer PA Work Phone: [facility] CenterRhcrhqvaow67-89-3912 09:37-0400Systolic blood mqwkpgoe122 mm[Hg]Buck Hemmer PA Work Phone: [facility] CenterZjnhckabzj89-36-6410 13:07-0500Body uixttl639.4 cmKaren Hemmer PA Work Phone: [facility] CenterBkebjjobvy02-35-9645 13:07-0500Body mass index (BMI) [Ratio]25.07 kg/l1Qfuph Hemmer PA Work Phone: noCenterPointe HospitalAtfjnaotzw59-50-4561 13:07-0500Body qnpzat36.4 kg Buck Hemmer PA Work Phone: noCenterPointe HospitalZmgpzfxvbq07-98-3112 13:07-0500Diastolic blood vjuiyeop05 mm[Hg]Buck Hemmer PA Work Phone: [facility] CenterTtxwoyihxo13-05-0987 13:07-0500Heart rate55 /min Buck Hemmer PA Work Phone: [place] [address]Sdytlodqrx45-58-7096 13:07-4692ApO1% (BldA) [Mass fraction]98 %Buck Hemmer PA Work Phone: noCenterPointe HospitalHijpaisbbw48-22-1780 13:07-0500Systolic blood ywninvtf069 mm[Hg]Buck Hemmer PA Work Phone: [facility] CenterQcvojumviu90-15-8896 09:47-0500Body mass index (BMI) [Ratio]24.75 kg/g1Hfogm Hemmer PA Work Phone: [facility] CenterQihqirmzyr37-11-7174 09:47-0500Body jtnykp89.49 kgKaren Hemmer PA Work Phone: noCenterPointe HospitalLrvhzwvjbg61-21-0115 09:47-0500Diastolic blood vfdivrgb02 mm[Hg]Buck Hemmer PA Work Phone: [facility] CenterUaymtzhkob40-16-9622 09:47-0500Heart rate55 /min Buck Hemmer PA Work Phone: [place] [address]Spyudsbhzj27-10-3378 09:47-0500Respiratory rate17 /minKaren Hemmer PA Work Phone: [facility] CenterFvatakrbcl53-10-1928 09:47-8780CrT1% (BldA) [Mass fraction]99 %Buck Hemmer PA Work Phone: [place] [address]Jicjjrezta26-06-1421 09:47-0500Systolic blood mm[Hg]Buck Hemmer PA Work Phone: [facility] CenterSflwqittng41-35-9839 09:03-0500Body mass index (BMI) [Ratio]25.4 kg/n2RfapsekDhara Rodriguez FIXED ASSETS ACCOUNTANT Work Phone: [facility] CenterRdqwtudcrl73-91-6982 09:03-0500Body temperature 97.81 [degF]Dhara Rodriguez FIXED ASSETS ACCOUNTANT Work Phone: [facility] CenterNpceslhxzj03-71-1136 09:03-0500Body .31 kgDhara Rodriguez FIXED ASSETS ACCOUNTANT Work Phone: [place] [address]Gylbspzgfe14-88-8259 09:03-0500Diastolic blood qftahnrv18 mm[Hg]Dhara Rodriguez FIXED ASSETS ACCOUNTANT Work Phone: [facility] CenterYvdectnawq51-73-5565 09:03-0500Heart rate78 /min Dhara Rodriguez FIXED ASSETS ACCOUNTANT Work Phone: [facility] CenterRnhkkulohm15-67-5418 09:03-9765IkW1% (BldA) [Mass fraction]98 %Dhara Rodriguez FIXED ASSETS ACCOUNTANT Work Phone: [facility] CenterRxayudpfrm37-76-2598 09:03-0500Systolic blood mm[Hg]Dhara Rodriguez FIXED ASSETS ACCOUNTANT Work Phone: [facility] CenterBdxfqmwiyq93-02-5693 13:38-0500Body jepjdr820.4 cmHarrisongiselle Love FIXED ASSETS ACCOUNTANT Work Phone: [facility] HospitalLtoyraudan86-49-9644 13:38-0500Body mass index (BMI) [Ratio]24.97 kg/m2Neena Love FIXED ASSETS ACCOUNTANT Work Phone: [facility] CenterVuynjznres04-61-8449 13:38-0500Body .13 kgNeena Love FIXED ASSETS ACCOUNTANT Work Phone: [facility] HospitalPniqglfqnr01-97-5177 13:38-0500Diastolic blood sbovfphc97 mm[Hg]Neena Love FIXED ASSETS ACCOUNTANT Work Phone: [facility] HospitalRsdhbocuar03-39-5273 13:38-0500Heart rate78 /min Neena Love FIXED ASSETS ACCOUNTANT Work Phone: [facility] CenterMgerjtvmjg58-46-3183 13:38-0500Respiratory rate17 /minNeena Shamar FIXED ASSETS ACCOUNTANT Work Phone: [facility] CenterDwqgdklvgf54-79-8380 13:38-8984WwN3% (BldA) [Mass fraction]97 %Neena Love FIXED ASSETS ACCOUNTANT Work Phone: [facility] CenterOagrvyranb30-10-8482 13:38-0500Systolic blood ybywatfl587 mm[Hg]Neena Love FIXED ASSETS ACCOUNTANT Work Phone: [phone] [place], [place] [address]Yjysrqmwmp65-35-1013 09:33-0500Body mass index (BMI) [Ratio]25.01 kg/q0ZxgtrqJazzy Hutchins FIXED ASSETS ACCOUNTANT Work Phone: [facility] CenterEickrlklrj56-79-9983 09:33-0500Body rfwgse11.22 kgJazzy Hutchins FIXED ASSETS ACCOUNTANT Work Phone: [facility] CenterRbazokcowv69-42-6287 09:33-0500Diastolic blood gcogtlkq10 mm[Hg]Jazzy Hutchins FIXED ASSETS ACCOUNTANT Work Phone: [facility] CenterBymgmhglfy83-86-8253 09:33-0500Heart rate67 /min Jazzy Hutchins FIXED ASSETS ACCOUNTANT Work Phone: [facility] CenterImldmxlzcz40-04-0229 09:33-0500Respiratory rate16 /minSkolby Hutchins FIXED ASSETS ACCOUNTANT Work Phone: [facility] CenterPfgltmjfqm61-11-1692 09:33-8444TuD3% (BldA) [Mass fraction]97 %Jazzy Hutchins FIXED ASSETS ACCOUNTANT Work Phone: [facility] CenterOmwmdgjwed98-54-9284 09:33-0500Systolic blood ahpnemqx574 mm[Hg]Jazzy Hutchins FIXED ASSETS ACCOUNTANT Work Phone: [facility] CenterKabccuwnfs84-40-8788 11:35-0500Body mass index (BMI) [Ratio]24.78 kg/i4LhnqzBuck Flores PA Work Phone: [facility] CenterQoscvfzava13-55-1054 11:35-0500Body temperature 97.9 [degF]Buck Flores PA Work Phone: [facility] CenterBfnqtokhmd47-08-1605 11:35-0500Body .58 kgFredyen Hemmer PA Work Phone: noEnzySurgeHlmsyeyzzi83-52-4478 11:35-0500Diastolic blood mxqogrnt32 mm[Hg]Buck Hemmer PA Work Phone: [facility]NC Pksmbclgsq42-99-4340 11:35-0500Heart rate59 /min Buck Hemmer PA Work Phone: Meal TicketBxdrzmfmxn28-84-7772 11:35-0500Respiratory rate16 /minFredyen Hemmer PA Work Phone: Meal TicketHdzcmyvwnv11-39-7721 11:35-0928XqH0% (BldA) [Mass fraction]99 %Buck Hemmer PA Work Phone: noEnzySurgeWmspnvygws24-05-0974 11:35-0500Systolic blood miaokhjw171 mm[Hg]Buck Hemmer PA Work Phone: noNC Rriwrnqtgh93-08-2288 14:00-0400Body jgtvoj207.64 cmStepangelito Dotson Other [employer] Other 10-21-2021 14:00-0400Body mass index (BMI) [Ratio] 24.21 kg/g0FkykbvymjShannon Dotson Other noExcorda Other 10-21-2021 14:00-0400Body bbdcistfmsq86.5 [degF] Shannon Dotson Other noEx[employer] Other 10-21-2021 14:00-0400Body .04 kgStcelestina Dotson Other noEx[employer]a Other 10-21-2021 14:00-0400Respiratory rate18 /minShunter Dotson Other [employer] Other 10-21-2021 14:00-8427KoK8% (BldA) [Mass fraction]97 % Shannon Dotson Other [facility] [employer] Other Encounters Encounter DateEncounter TypeCare ProviderFacilityStart: 07-24-2025 End: 52-69-9752Fudvvj outpatient visit 25 minutesOchoa Medina MD Work Phone: noms [place] [facility] MedinceComment on above:Chronic sinusitis, unspecified location (Primary Dx); Intracranial hemorrhage (HCC); Acute non-recurrent sinusitis, unspecified location; Cerebrospinal rhinorrheaStart: 07-24-2025 End: 92-37-6886exsdihevpgERINJ M ALDANot AvailableStart: 06-30-2025 End: 58-11-0487Ctqybfarthur Medina MD Work Phone: noms [place] [facility] MedinceStart: 06-30-2025 End: 02-30-8141Fvgabrmargarito Medina MD Work Phone: noms [place] [facility] MedinceStart: 06-30-2025 End: 53-26-9328Proflv outpatient visit 25 minutesOchoa Medina MD Work Phone: noms [place] Nunez MedinceComment on above:Fall at home, initial encounter (Primary Dx); 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, unspecified laterality, subsequent encounter; Closed fracture of right side of base of skull with routine healing, subsequent encounter; Benign essential hypertensionStart: 06-30-2025 End: 44-18-5853fkxtzjlkfaZSTOX M ALDANot AvailableStart: 06-18-2025 End: 88-08-5840Qwjwgx outpatient visit 25 minutesBuck THOMSON Work Phone: noms [place] [facility] MedinceComment on above: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 of 6 hours to 24 hours, unspecified laterality, sequela (Primary Dx); Closed fracture of right side of base of skull, sequela; Acute seasonal allergic rhinitis due to pollen; Fall, sequela; Need for influenza vaccination; Decreased appetite; Benign essential hypertensionStart: 06-18-2025 End: 78-78-1784lwtnzzkfssFOOHQ M HEMMERNot AvailableStart: 06-18-2025 End: 39-82-2228Emkxmu Suki THOMSON Work Phone: noms [place] [facility] MedinceStart: 06-18-2025 End: 38-06-9859Dpbczu Suki THOMSON Work Phone: noms [place] [facility] MedinceStart: 05-29-2025 End: 96-32-7353Arolvxbpj Result EncounterGeneric External Data ProviderNOMS External Department UnsolicitedStart: 05-29-2025 End: 44-46-9020Ymtbjvzfw Result EncounterGeneric External Data ProviderNOMS External Department UnsolicitedStart: 80-05-5697qbzfohsvjoOBI IN SYSTEM [facility] PPGStart: 05-16-2025 End: 73-04-1555Wtcvmzhsid and management of inpatientPakelin Pires MD Work Phone: [facility] GEN 9 AcuteComment on above:ICH (intracerebral hemorrhage) (CMS-HCC) (Primary Dx)Start: 05-16-2025 End: 24-26-3467jguxizufidYokm M [facility]intonMart[facility] Work Phone: Start: 05-16-2025 End: 56-69-1868Mhsbiscb ReferredSage Arzola DO-LAB [facility] Start: 05-16-2025 End: 65-53-8263Plgeghfsk Result EncounterGeneric External Data ProviderNOMS External Department UnsolicitedStart: 05-16-2025 End: 97-98-8133Mkgzjeksa Result EncounterGeneric External Data ProviderNOMS External Department UnsolicitedStart: 03-19-2025 End: 27-72-6155Hcmpibzmr Result EncounterOchoa Meidna MD Work Phone: noms External Department UnsolicitedStart: 03-19-2025 End: 39-72-4745Yhhzyclfm Result EncounterOchoa Medina MD Work Phone: NOMS External Department UnsolicitedStart: 03-18-2025 End: 87-82-6999Ischzz outpatient visit 15 minutesBuck Flores PA Work Phone: NOMS CI FMComment on above:Benign essential hypertension (Primary Dx); Acute seasonal allergic rhinitis due to pollenStart: 03-18-2025 End: 69-01-3703jyvqqfjitjJLQNY M HEMMERNot AvailableStart: 01-06-2025 End: 67-80-3283Dnlyct Suki Flores PA Work Phone: NOMS CI FMStart: 01-06-2025 End: 74-94-1819Wztgmh Suki Flores PA Work Phone: NOMS CI FMStart: 01-06-2025 End: 08-38-2073Mwvhdy outpatient visit 15 minutesBuck THOMSON Work Phone: NOMS CI FMComment on above:Acute non-recurrent ethmoidal sinusitis (Primary Dx)Start: 01-06-2025 End: 06-91-3129xtbzkgndrwKHHYV M HEMMERNot AvailableStart: 11-18-2024 End: 55-28-3748Kncifq flowsheetNatalie A Felter TACKING STITCH REMOVER-EXCEL SPECIALIST Work Phone: NOMS SWS DERMStart: 11-18-2024 End: 12-66-1741Tmvedo flowsheetNatalie A Felter TACKING STITCH REMOVER-EXCEL SPECIALIST Work Phone: NOMS SWS DERMStart: 11-18-2024 End: 25-02-5528Jatear outpatient visit 15 minutesNatalie A Felter TACKING STITCH REMOVER-EXCEL SPECIALIST Work Phone: noms SWS DERMComment on above:Seborrheic keratosis; Actinic keratosis; Melanocytic nevus of trunk; Melanocytic nevus of left upper extremity; Melanocytic nevus of right upper extremity; Neurofibroma; Sebaceous hyperplasia of face; Onycholysis due to Pseudomonas infectionStart: 11-18-2024 End: 82-17-2996adtcbchbluGMMFGZU A FELTERNot AvailableStart: 09-16-2024 End: 24-98-9074Avcaryomi encounterBuck THOMSON Work Phone: NOMS CI FMStart: 09-12-2024 End: 29-62-8727Wuwuil flowsDeyvi THOMSON Work Phone: NOMS CI FMStart: 09-12-2024 End: 86-56-6261Uvpxqq flowsDeyvi THOMSON Work Phone: NOMS CI FMStart: 09-12-2024 End: 98-94-9711Gsqxkzt encounter procedureBuck THOMSON Work Phone: NOMS CI FMComment on above:Medicare annual wellness visit, subsequent (Primary Dx); Hypersomnia; Obstructive sleep apnea syndrome; Seizure ([facility]/HCC); Benign essential hypertension ([facility]/HCC); Diverticulosis; Cervical spondylosis; Age-related osteoporosis without current pathological fracture ([facility]/HCC); Acute seasonal allergic rhinitis due to pollen; Allergic conjunctivitis of both eyes; Hypercholesterolemia (CMS/HCC); Macular degeneration of both eyes, unspecified type; ACP (advance care planning)Start: 09-12-2024 End: 03-52-8323lvhlgkgtwpRTUUTAlireza De Leon AvailableStart: 09-09-2024 End: 10-55-7481Qeiefi flowsDeyvi THOMSON Work Phone: NOMS CI FMStart: 09-09-2024 End: 25-64-8363Qerafz flowsDeyvi THOMSON Work Phone: NOMS CI FMStart: 09-09-2024 End: 58-99-7937Xbsbld outpatient visit 15 minutesBuck THOMSON Work Phone: NOMS CI FMComment on above:Rib contusion, left, subsequent encounter (Primary Dx)Start: 09-09-2024 End: 90-88-1686bbomjlvbmhHUNZA M HEMMERNot AvailableStart: 09-06-2024 End: 67-05-8058Aynjke outpatient visit 25 minutesDhara Rodriguez FIXED ASSETS ACCOUNTANT Work Phone: NOMS SWS UCComment on above:Fall, initial encounter (Primary Dx); Rib pain on left sideStart: 09-06-2024 End: 69-68-8232ntsnlqokxuUIBAOVE N AUSTINNot AvailableStart: 09-04-2024 End: 57-66-8948Yctjjt Zay Love FIXED ASSETS ACCOUNTANT Work Phone: [phone] CI FMStart: 09-04-2024 End: 95-75-9352Tegjal Zay Love FIXED ASSETS ACCOUNTANT Work Phone: NOMS CI FMStart: 09-04-2024 End: 33-26-3598Cfhbwn outpatient visit 25 minutesKigiselle Love FIXED ASSETS ACCOUNTANT Work Phone: NOMS CI FMComment on above:Acute frontal sinusitis, recurrence not specified (Primary Dx)Start: 09-04-2024 End: 42-46-9815qtjnjolmopVJGLyly Mcintyre AvailableStart: 08-06-2024 End: 84-85-3894Wcozbb flowsPriti Hutchins FIXED ASSETS ACCOUNTANT Work Phone: NOMS CI FMStart: 08-06-2024 End: 21-64-1479Spqzzf flowsPriti Hutchins FIXED ASSETS ACCOUNTANT Work Phone: NOMS CI FMStart: 08-06-2024 End: 29-83-1362Ufekhge encounter procedureSkolby Hutchins FIXED ASSETS ACCOUNTANT Work Phone: NOMS CI FMComment on above:Acute non-recurrent pansinusitis (Primary Dx); Unspecified convulsions (CMS/HCC)Start: 08-06-2024 End: 64-75-4520ggiwzwodpyDVNJZC M SHIVELYNot AvailableStart: 06-17-2024 End: 93-34-8331Lmrzsl flowsheetNatalie A Felter TACKING STITCH REMOVER-EXCEL SPECIALIST Work Phone: NOMS SWS DERMStart: 06-17-2024 End: 81-87-8217Tqzuiy flowsheetNatalie A Felter TACKING STITCH REMOVER-EXCEL SPECIALIST Work Phone: NOMS SWS DERMStart: 06-17-2024 End: 14-19-0211Vfecxo outpatient visit 10 minutesNatalie A Felter TACKING STITCH REMOVER-EXCEL SPECIALIST Work Phone: [facility] DERMComment on above:Onycholysis due to Pseudomonas infectionStart: 06-03-2024 End: 29-60-2693Ulpznt flowsheetNatalie A Felter TACKING STITCH REMOVER-EXCEL SPECIALIST Work Phone: [facility] DERMStart: 06-03-2024 End: 91-59-2376Skriai flowsheetNatalie A Felter TACKING STITCH REMOVER-EXCEL SPECIALIST Work Phone: NOZU SWS DERMStart: 06-03-2024 End: 71-87-5114Olgymc outpatient visit 15 minutesNatalie A Felter TACKING STITCH REMOVER-EXCEL SPECIALIST Work Phone: noms [facility] DERMComment on above:Onycholysis due to Pseudomonas infectionStart: 05-14-2024 End: 30-16-6969Ruqgwv flowsheetNatalie A Felter TACKING STITCH REMOVER-EXCEL SPECIALIST Work Phone: [facility] DERMStart: 05-14-2024 End: 40-59-1696Vhifzm flowsheetNatalie A Felter TACKING STITCH REMOVER-EXCEL SPECIALIST Work Phone: [facility] DERMStart: 05-14-2024 End: 24-14-7055Uyyvtazuz encounterNatalie A Felter TACKING STITCH REMOVER-EXCEL SPECIALIST Work Phone: [facility] DERMStart: 05-14-2024 End: 74-12-1165Vplbjb outpatient visit 25 minutesNatalie A Felter TACKING STITCH REMOVER-EXCEL SPECIALIST Work Phone: [facility] DERMComment on above:Onycholysis due to Pseudomonas infection (Primary Dx)Start: 03-18-2024 End: 82-15-6271Gjdwbpdjw Result EncounterOchoa Medina MD Work Phone: noms External Department UnsolicitedStart: 03-18-2024 End: 92-03-4477Meypbtcun Result EncounterOchoa Medina MD Work Phone: noms External Department UnsolicitedStart: 11-07-2023 Bamboo jaceDeyvi Flores PA Work Phone: NOMS CI FMStart: 85-63-5199Hajxkd jaceDeyvi Flores PA Work Phone: NOMS CI FMStart: 11-07-2023 End: 76-77-7600Kyxmol outpatient visit 15 minutesBuck Flores PA Work Phone: NOMS CI FMComment on above:Acute recurrent frontal sinusitis (Primary Dx)Start: 09-08-2023 End: 82-87-7199Nngjbbvsl Result EncounterOchoa Medina MD Work Phone: NOMS External Department UnsolicitedStart: 09-08-2023 End: 51-89-1078Zkdizhocd Result EncounterOchoa Medina MD Work Phone: noms External Department UnsolicitedStart: 03-16-2022 End: 53-93-1300ftqdnsouidMA RUGEN ALDAFacility:T2Hofpp: 03-01-2022 End: 25-56-0297zctclucpgdNL RUGEN ALDAFacility:F7Jjopj: 07-15-2021 End: 30-48-1024ztanwxmxshRexjoflgj Breault Other [facility] [employer] Other Start: 52-05-2405Jmafnc outpatient visit 15 minutes [facility] ClydeStart: 13-93-5193Prxsilbvx for general adult medical examination without abnormal findingsOcean [facility] Hospital HospitalStart: 06-15-2021 End: 23-94-5144tywdehmormTG RUGEN ALDAFacility:O9Hkkjg: 06-15-2021 End: 06-53-3753Rtehqdgux for general adult medical examination without abnormal findingsDR RUGEN ALDAFacility:H1 Procedures DateProcedureProcedure DetailPerforming ClinicianStart: 15-57-6830FE HEAD/BRAIN WOGeneric External Data ProviderStart: 47-20-1759QEMVB Wilton Moreau MD Work Phone: Start: 50-64-2183GFWNH TUBES LAVENDER TOPWilfredo Moreau MD Work Phone: [phone]: 22-92-4900Wajie metabolic panel calcium total Basvickey Lowe TACKING STITCH REMOVER-EXCEL SPECIALIST Work Phone: Start: 52-79-9829Yberornln serum plasma/whole blood Basvickey Lowe TACKING STITCH REMOVER-EXCEL SPECIALIST Work Phone: Start: 21-76-5444Roecq metabolic panel calcium total Bashar R Mynor TACKING STITCH REMOVER-EXCEL SPECIALIST Work Phone: Start: 84-47-0437Yvncn metabolic panel calcium total Bashar R Mynor TACKING STITCH REMOVER-EXCEL SPECIALIST Work Phone: Start: 36-93-3054Utigsuxg kinase totalSabrina Tilley PA-C Work Phone: Start: 11-48-9971Ppcgl count complete auto&auto difrntl wbcBashar Willis Lowe TACKING STITCH REMOVER-EXCEL SPECIALIST Work Phone: Start: 33-95-9984Wdika metabolic panel calcium total Bashar Willis Lowe TACKING STITCH REMOVER-EXCEL SPECIALIST Work Phone: Start: 55-93-5895BVBWOHE GLUCOSEDachayo Moreau MD Work Phone: Start: 25-52-8694Wg head/brain w/o contrast material Mary Lowe TACKING STITCH REMOVER-EXCEL SPECIALIST Work Phone: Start: 05-16-2025 End: 80-61-1545Ierqwoy bacterial quanttative colony count urineAshabelardo Giselle Saira TACKING STITCH REMOVER-EXCEL SPECIALIST Work Phone: Start: 39-67-4380RCZMRVWE ABORIlya Pires MD Work Phone: Start: 92-08-6587Hjlakbgi screenNOT PCPComment on above:Performed By: #### DSU #### [facility] ([facility]) [address] [place] [address] VIRStart: 05-16-2025 End: 71-29-6444Czixh typing serologic aboMary Lowe TACKING STITCH REMOVER-EXCEL SPECIALIST Work Phone: Start: 16-32-5106YSED TOP ON Karly Pires MD Work Phone: Start: 52-47-6682MAAWUSU Caio Pires MD Work Phone: Start: 05-16-2025 End: 84-60-4150Ywayprracyumv metabolic panelBarashard Lowe TACKING STITCH REMOVER-EXCEL SPECIALIST Work Phone: Start: 10-59-7346Wwylhkg [Mass/volume] in Serum or PlasmaBarashard Lowe TACKING STITCH REMOVER-EXCEL SPECIALIST Work Phone: Start: 06-85-4847SYGQA CULTURE - [facility] CHICKASHAGeneric External Data ProviderStart: 14-59-6511LT TOMOSYNTHESIS SCREENING Sanjuanita Medina MD Work Phone: Start: 62-38-0566OLOTYITQCHD SKIN LESIONNatalie A Felter TACKING STITCH REMOVER-EXCEL SPECIALIST Work Phone: Start: 90-77-5708AM TOMOSYNTHESIS SCREENING Sanjuanita Medina MD Work Phone: Start: 07-50-2695SG DEXA AXIAL SKELETONOchoa Medina MD Work Phone: Plan of Treatment DateCare ActivityDetailAuthorStart: 11-18-2025 End: 39-17-4620Ujuaats encounter procedureNOMS SWS DERMStart: 11-16-2025 DTaP/Tdap/Td Vaccines (3 - Td or Tdap)DTaP/Tdap/Td Vaccines (3 - Td or Tdap)NOMS HealthcareStart: 12-19-2025Medicare Annual Wellness (AWV)Medicare Annual Wellness (AWV)NOMS HealthcareStart: 09-08-2025 End: 51-66-1533Yinxztl encounter procedureNOMS CI FMStart: 08-25-2025 End: 77-53-9706Xblwvll encounter fgqmnuwfz32/01/2025 9:30 AM EST Office Visit [facility] [place] [facility] [address] [place] [address] Ochoa Medina MD [address] [place] [address] NOMS [place] [facility] MedinceStart: 06-30-2025 End: 93-12-6784Pjxjcsn encounter cmurkzqkj85/06/2025 2:00 PM EDT Office Visit [facility] [place] [facility] [address] [place] [address] Ochoa Medina MD [address] [place] [address] ArrivedNOMS [place] Nunez MedinceComment on above:ArrivedStart: 06-18-2025 End: 70-27-2982Ihnrdrx encounter eqbowmxpc01/24/2025 2:30 PM EDT Office Visit [facility] [place] [facility] [address] [place] [address] Buck Flores PA [address] [place] [address] ArrivedNOMS [place] Nunez MedinceComment on above:ArrivedStart: 44-43-6308OSRDN-19 Vaccine ( season)COVID-19 Vaccine ( season)NOMS HealthcareStart: 20-04-4653Zhhkdlfso vaccinationInfluenza Vaccine (#1)NOMS HealthcareStart: 76-00-5458Iuuvn culture [facility] Easttart: 75-01-6332Plnyxzew identified in Urine by CultureUrine CultureRegency Hospital Cleveland Easttart: 01-06-2025 End: 60-06-0705Jszvvnw encounter /14/2025 9:30 AM EDT Office Visit [facility] FM [address] [place] [address] Buck Flores, PA [address] [place] [address] ArrivedNOMS CI FMComment on above:ArrivedStart: 11-18-2024 End: 70-17-2105Mbqzhmq encounter procedureNOMS SWS DERMComment on above:Arrived Start: 09-12-2024 End: 41-94-2723Zcwribv encounter procedureNOMS CI FMComment on above:Arrived Start: 09-09-2024 End: 33-57-4177Fssxclw encounter rmotgxpef87/16/2024 10:00 AM EST Office Visit [facility] [address] [place] [address] Buck Flores PA [address] [place] [address] ArrivedNOMS CI FMComment on above:ArrivedStart: 09-04-2024 End: 28-76-1100Bvdcfxe encounter /11/2024 2:00 PM EST Office Visit [facility] [address] [place] [address] Neena Love, FIXED ASSETS ACCOUNTANT [address] [place] [address] ArrivedNOMS CI FMComment on above:ArrivedStart: 06-17-2024 End: 03-63-3637Jpznpmy encounter procedureNOMS SWS DERMComment on above:Arrived Start: 09-12-2024Medicare Annual Wellness (AWV)Medicare Annual Wellness (AWV) NOMS HealthcareStart: 06-03-2024 End: 29-88-9809Ieojyti encounter hpprwipic70/09/2024 9:20 AM EDT Office Visit [facility] [address] [place] [address] Onofre Zuleta APRN-EXCEL SPECIALIST [address] [place] [address] ArrivedNOMS SWS DERMComment on above: ArrivedStart: 94-99-4126Qhldcjehg vaccinationInfluenza Vaccine (#1)NOMS HealthcareStart: 05-14-2024 End: 66-75-6561Bczzvwm encounter ggamwezzp74/20/2024 10:05 AM EDT Office Visit [facility] D[facility] [address] [place] [address] Onofre Zuleta, TACKING STITCH REMOVER-EXCEL SPECIALIST [address] [place] [address] ArrivedNOMS [facility] DERMComment on above: ArrivedStart: 12-05-2023 End: 16-12-1270Dyyputi encounter kcsvzsget70/12/2024 9:00 AM EDT Office Visit [facility] [address] [place] [address] Buck Flores PA [address] [place] [address] NOMS CI FMStart: 11-14-2023 End: 09-13-2925Ozcakuh encounter lzbwruulc08/20/2024 9:40 AM EST Office Visit [facility] [address] [place] [address] Onofre Zuleta, TACKING STITCH REMOVER-EXCEL SPECIALIST [address] [place] [address] [facility] DERMStart: 11-07-2023 End: 56-26-2375Tyzrgfh encounter yiwtvmpju47/13/2024 11:30 AM EST Office Visit [facility] [address] [place] [address] Buck Flores PA [address] [place] [address] ArrivedNOMS CI FMComment on above:ArrivedBacteria identified in Blood by Aerobe cultureProMedica Work Phone: [facility] Lab Routine 05/16/2025 5:55 PM EDTNOMS Healthcare Immunizations Immunization DateImmunizationNotesCare LzkyzmzyRcajcjjn00-87-8408kzxceaoxk, high dose seasonal, preservative-freeBuck THOMSON Work Phone: [facility] CenterLbabhfecjm91-46-3067xhbzdtj toxoid, reduced diphtheria toxoid, and acellular pertussis vaccine, adsorbedDachayo Moreau MD Work Phone: [facility] HospitalDyslgh38-64-7437tzyvpwsvo, high dose seasonal, preservative-freeBuck THOMSON Work Phone: [facility] CenterLojtpuscnq55-34-4737nvvprcmut virus vaccine, unspecified formulationNatalie Ebonyer TACKING STITCH REMOVER-EXCEL SPECIALIST Work Phone: [facility] CenterIcklsicvjq41-08-0411ATG, recombinant, protein subunit RSVpreF, adjuvant reconstitu, 120mcg/0.5mL, PF (Arexvy)Buck THOMSON Work Phone: [facility] CenterLifahpejih01-34-4312Yiljw-44, Mrna, Lnp-s, Pf,maric-sucrose,30 Mcg/0.3ml SeasonalDachayo Moreau MD Work Phone: [facility]09-19-2023Pfizer Purple Cap SARS-CoV-2 VaccinationBuck THOMSON Work Phone: [facility] CenterLwfkzlwehl47-94-2807ryevwqc toxoid, reduced diphtheria toxoid, and acellular pertussis vaccine, adsorbedBuck THOMSON Work Phone: [facility] Work Phone: [phone], Seasonal, Quadrivalent, AdjuvantedBuck THOMSON Work Phone: [facility] CenterCyiqarvcea52-80-7614jhrsbtuin virus vaccine, unspecified formulationNatalie Merlyn TACKING STITCH REMOVER-EXCEL SPECIALIST Work Phone: [facility] CenterVplgvaqsek68-31-3169Tmvwptx Bivalent Booster VaccinationBuck THOMSON Work Phone: [facility] CenterGdpxqhjeme33-73-1291Dewuavktv, High-dose Seasonal, Quadrivalent, Preservative FreeKaren Hemmer PA Work Phone: [facility] CenterCzqvwqfmir54-25-1535Yxeqgrgoi, High-dose Seasonal, Quadrivalent, Preservative FreeKaren Hemmer PA Work Phone: [phone].comAlvin J. Siteman Cancer CenterPuesgowzqr37-09-3751iswozx vaccine recombinant Buck Hemmer PA Work Phone: [phone].comAlvin J. Siteman Cancer CenterRfsyyhbage57-86-0298gndenvrff, high dose seasonal, preservative-freeKaren Hemmer PA Work Phone: [phone].comAlvin J. Siteman Cancer CenterTqxqjiegux55-12-1285gbflwd vaccine recombinant Buck Hemmer PA Work Phone: [phone].comAlvin J. Siteman Cancer CenterYzorpbbwyh01-76-5426alaneldwpmae polysaccharide vaccine, 23 valentKaren Hemmer PA Work Phone: [phone].comAlvin J. Siteman Cancer CenterAhploatxnk12-04-3057jeaayfmyv, high dose seasonal, preservative-freeKaren Hemmer PA Work Phone: [phone].comAlvin J. Siteman Cancer CenterGutzeorluv31-39-8541tfaivqgwd, injectable, quadrivalent, contains preservativeKaren Hemmer PA Work Phone: [phone].comAlvin J. Siteman Cancer CenterUaayqkyogj29-96-7824cbdarkaknugo conjugate vaccine, 13 valentKaren Hemmer PA Work Phone: [phone].comAlvin J. Siteman Cancer CenterQxqzdypyis31-21-6997odppmkwhj, high dose seasonal, preservative-freeKaren Hemmer PA Work Phone: [phone].comAlvin J. Siteman Cancer CenterApyxxddwfi11-68-8099wuxapy vaccine, liveKaren Hemmer PA Work Phone: [phone] [place], [place] [address]Evytuanjfk82-06-2609eybkir vaccine, liveKaren Hemmer PA Work Phone: [phone] J. S[facility] Payers DatePayer CategoryPayerPolicy [id number] Indemnity [employer] [id number] Health InsuranceCLINTON MEMORIAL HOSPITALCAL MUTUAL Member Subscriber Plan / Payer (Effective 2021-Present) Name: Mei Guardado Relation to Subscriber: Self Name: Mei Guardado ID: Not on file Type: Not on file Address: [address] [id number] [id number] 2023- [address] [place] [id number]57 Medicare.2.840.812557.1.13.693.2.7.3.198085.315 [id number] [id number] .1.311842.3.57[id number] .1.357001.3.57[id number] 2.1.194399.3.57[id number] .1.827564.3.57[id number] 2.16.840.1.775942.3.57[id number] 2.16.840.1.251980.3.57[id number] 2.16.840.1.765918.3.57[id number] 2.16.840.1.668970.3.57[id number] 2.16840.1.781081.3.57[id number] 2.16840.1.982630.3.57[id number] 2.16840.1.193813.3.57[id number] 2.16840.1.115211.3.57[id number] 2.16840.1.278689.3.57[id number] 2.16840.1.774768.3.57[id number] 2.16840.1.335721.3.57[id number] 2.16840.1.399368.3.57[id number] 2.16840.1.731935.3.57[id number] 2.16840.1.294401.3.57[id number] 2.16.840.1.765961.3.57[id number] 2.16.840.1.784824.3.57[id number] 2.16.840.1.134617.3.57[id number] 2.16.840.1.580010.3.579.[id number] 2.16.840.1.689522.3.579.2.1259MedicareMedicare [id number] [id number] 2.16840.1.012778.3.579.2.531 Social History DateTypeDetailFacilityStart: 08-24-2023 End: 93-19-9103Joj Assigned At [facility] [employer] Other Start: 02-16-2023 End: 31-57-7387Yagigje smoking status NHISNever smoked tobaccoNOMS Healthcare Start: 02-16-2023 End: 20-34-5369Chohzzu use and exposureSmokeless tobacco non-userNOMS Healthcare Start: 08-24-2023 End: 64-65-8041Dxnuzzq intakeLifetime non-drinker (finding)NOMS HealthcareStart: 08-24-2023 End: 06-72-1039Lzkkhum of Social functionNOMS HealthcareStart: 57-47-6909Hnm Assigned At BirthNot on fileNOMS HealthcareStart: 74-63-6064RuxKyfphq (finding) [facility] Easttart: 41-02-9143Dul Assigned At [facility] HospitalFeDunlap Memorial Hospitaltart: 29-41-3886Vrkcrhzqv beverage intakeEx- drinker (finding)[employer] SystemHas the [employer], oil, or water [employer] threatened to shut off services in your home in past 12Phelps Memorial Hospitaltart: 31-83-0159Wss often to you have a drink containing alcohol? Patient declinedLima Memorial HospitalHow often do you have 6 or more drinks on 1 occasion?NeverLima Memorial Hospital Goals DatePatient GoalDesired Activity/StatePersonal health goalComment on above: Evaluation of progress towards goal: Safe discharge from hospital Functional Status PcccIfghxncexuUsmyrtTwhiwogb86-39-6022Mggbxnm Health Questionnaire 2 item (PHQ- 2) [Reported][facility] Cancer CenterPjqgpjqpvh82-72-4868Qbiwinu Health Questionnaire 2 item (PHQ- 2) [Reported][facility] Cancer CenterCsgiodkfuj01-59-7437Ozaywdt Health Questionnaire 2 item (PHQ- 2) [Reported][facility] Cancer CenterZvhdjdasym02-72-2237Ikpxv score [AUDIT-C]-1 05/19/2025 2:53 PM EDT Angela ParadaLifePoint Hospitals06-24-2025Patient Health Questionnaire 2 item (PHQ-2) [Reported][facility] Cancer CenterYbbrklaewo30-89-6328Mwchnxf Health Questionnaire 2 item (PHQ-2) [Reported][facility] Cancer CenterIzwvrmpzde89-92-9856Nioxogj Health Questionnaire 2 item (PHQ-2) [Reported][facility] Mental Status DateAssessmentResultMilwaukee County General Hospital– [place][note 2] Clinical Notes 07-15-2021 to 07-24-2025 Note Date & PowfTobeBkqlaqps18-37-0958 History of Present illness Narrative* Ochoa Medina MD - 07/24/2025 1:51 PM EDTAssociated Problem(s): Cerebrospinal rhinorrhea Referral made to Neurology * Ochoa Medina MD - 07/24/2025 1:48 PM EDTAssociated Problem(s): Intracranial hemorrhage (HCC) Had fall and skull fracture with bleed and distorted vision Has constant rhinorrhea Again, discussed could be related to traumatic skull fracture * Ochoa Medina MD - 07/24/2025 1:47 PM EDTAssociated Problem(s): Chronic sinusitis Antbx called in again Add Probiotic to help replenish the good bacteria that are destroyed by the Antibiotics Florastor Florajen Align or try Activia in Yogurt Probiotics reduce the risk of antibiotic induced diarrhea May need CT scan Cannot completely ruleout CSF leak * Ochoa Medina MD - 07/24/2025 1:30 PM EDT Images from the original note were not included. Subjective Patient ID: Mei Guardado is a 85 y.o. female who presents for URI. Pt was given ceftin on the but is still complaining of coughing, sneezing, blowing nose , clear Questions regarding her eye sight after her fall , mainly left eye Since the fall the central vision is not clear. More distortions. Saw [facility] 6 weeks Over the past 2 weeks, how often [...] Take 2 tablets by mouth Daily [DISCONTINUED] cefuroxime (Ceftin) 500 MG tablet Take 0.5 tablets (250 mg) by mouth in the morning and 0.5 tablets (250 mg) before bedtime. Do all this for 10 days. 10 tablet 0 No current facility-administered medications on [...] ROTATOR CUFF REPAIR Left Visit Vitals BP 136/72 Pulse 63 Ht 5' 5.5 Wt 138 lb SpO2 97% BMI 22.62 kg/m Smoking Status Never BSA 1.7 m Review of Systems HENT: Positive for rhinorrhea. [...] time. Psychiatric: Mood and Affect: Mood normal. Assessment/Plan Problem List Items Addressed This Visit Intracranial hemorrhage (HCC) Had fall and skull fracture with bleed and distorted vision Has constant rhinorrhea Again, discussed could be related to traumatic skull fracture Relevant Orders Ambulatory referral to Neurology Chronic sinusitis - Primary Antbx called in again Add Probiotic to help replenish the good bacteria that are destroyed by the Antibiotics Florastor Florajen Align or try Activia in Yogurt Probiotics reduce the risk of antibiotic induced diarrhea May need CT scan Cannot completely ruleout CSF leak Relevant Medications predniSONE (Deltasone) 10 MG tablet Acute non-recurrent sinusitis Relevant Medications cefuroxime (Ceftin) 500 MG tablet Cerebrospinal rhinorrhea Referral made to Neurology Relevant Orders Ambulatory referral to Neurology Follow up with Dr. Ochoa Medina in about 1 month (around 08/24/2025), if symptoms worsen or fail to improve. documented in this encounterAlvin J. Siteman Cancer CenterNzqnmadtya09-54-0360 History of Present illness Narrative* Ochoa Medina MD - 06/30/2025 2:43 PM EDTAssociated Problem(s): Benign essential hypertension Our specific goals, for your hypertension, is [...] taking them as prescribed. DASH diet handouts * Ochoa Medina MD - 06/30/2025 2:34 PM EDTAssociated Problem(s): Closed fracture of right side of base of skull (CMS-HCC) Stable from CT scan Calcium and Vitamin D * Ochoa Medina MD - 06/30/2025 2:33 PM EDTAssociated Problem(s): ICH (intracerebral hemorrhage) (HCC) Resolved as per CT scan May Drive during the day only short distances and low speeds Folic Acid and B12 May need Neurology Repeat CT scan in August * Ochoa Medina MD - 06/30/2025 2:26 PM EDTAssociated Problem(s): Fall at home, initial encounter Has been doing PT and no longer using walker Etiology uncertain as cause. No evidence of CVA, No CO and no Tumor Needs a life alert Consider camera * Ochoa Medina MD - 06/30/2025 2:00 PM EDT Images from the original note were not included. Subjective Patient ID: Mei Guardado is a 85 y.o. female who presents for questions. Pt is wanting to find out if she needs to wait until her wellness before she can drive again, as this was told to her by buck flores that she should wait. How long can the brain injury last Pt has been doing PT at home, she walks with HH and does not need a walker What caused the fall and does she need any additional medication Pt will get pains in her eyes, she has seen eye dr for this, Still has memory loss [facility]ed [facility] to [facility] for 20 minutes. Left eye decreased vision. Saw specialist at Dr. Birch Over the past 2 weeks, how often [...] tablet Take 2 tablets by mouth Daily No current facility-administered medications on file prior [...] ROTATOR CUFF REPAIR Left Visit Vitals BP 134/82 Pulse 92 Ht 5' 5.5 Wt 140 lb SpO2 97% BMI 22.94 kg/m Smoking Status Never BSA 1.71 m Review of Systems HENT: Negative for ear pain. Eyes: Positive for visual disturbance. Negative for pain. Neurological: Negative for headaches. Objective Physical Exam Constitutional: General: She is not in acute distress. Appearance: Normal appearance. HENT: Head: Normocephalic. Cardiovascular: Rate and Rhythm: Normal rate and regular rhythm. Pulmonary: Effort: Pulmonary effort is normal. No respiratory distress. Breath sounds: Normal breath sounds. Musculoskeletal: General: Normal range of motion. Neurological: General: No focal deficit present. Mental Status: She is alert and oriented to person, place, and time. Cranial Nerves: No cranial nerve deficit. Sensory: No sensory deficit. Motor: No weakness. Coordination: Coordination normal. Comments: Weakened balance Psychiatric: Mood and Affect: Mood normal. Assessment/Plan Problem List Items Addressed This Visit Benign essential hypertension Our specific goals, for your hypertension, is [...] taking them as prescribed. DASH diet handouts Closed fracture of right side of base of skull (CMS-HCC) Stable from CT scan Calcium and Vitamin D Fall at home, initial encounter - Primary Has been doing PT and no longer using walker Etiology uncertain as cause. No evidence of CVA, No CO and no Tumor Needs a life alert Consider camera ICH (intracerebral hemorrhage) (HCC) Resolved as per CT scan May Drive during the day only short distances and low speeds Folic Acid and B12 May need Neurology Repeat CT scan in August Follow up in about 8 weeks (around 08/25/2025). documented in this encounterAlvin J. Siteman Cancer CenterYdawxszowr91-13-9430 History of Present illness Narrative* ALIX Asher - 06/18/2025 2:30 PM EDT Images from the original note were not included. Subjective Patient ID: Mei Guardado is a 85 y.o. female who presents for assisted discharge. Flowsheet Row Patient Outreach from 06/16/2025 in [facility] with Claudia Burr LPN Hospital Information ED, Hospital or [facility] Facility Discharge? [facility] Facility Patient has been contacted within two business days of discharge Yes Have two attempts been made to contact the patient within two business days of being discharged? Yes Discharge Date 06/12/25 Discharged To: Home Setting [facility] Facilities [facility] Engagement Admission Date 05/20/25 Medications Discharge medications reviewed and reconciled from hospital? Yes Is the patient having any side effects they believe may be caused by any medication additions or changes? No Does the patient have all medications ordered at discharge? Yes Is the patient taking all medications as directed (includes completed medication regime)? Yes Appointments Does the patient have a primary care provider? Yes Nursing Interventions Verified appointment date/time/provider Nursing Interventions Advised patient to keep appointment Self Management Does patient have home health? yes What is the home health agency? [facility] NURSE/PT/OT Patient Teaching Does the patient have access to their discharge instructions? Yes Nursing Interventions Reviewed instructions with patient What is the patient's perception of their health status since discharge? Improving Patient/Caregiver Education Comments: Her appetite is slowly getting better. Tawnya states that she is still having a little pain in the back of her head from the fracture. Also some pain in her neck,but not too bad. Taking Tylenol. Wrap Up She is present today with step-daughter. She is feels she is doing well, walked out today to get her mail without her walker. They are not sure if she needs to still be taking the meds she is on especially the Lisinopril, that is a new med from the [facility]. Here with her step daughter, Tawnya. Did develop a cough while she was in the facility. Over the past 2 weeks, how often [...] Take 2 tablets by mouth Daily [DISCONTINUED] alendronate (Fosamax) 70 MG tablet TAKE 1 TAB 30 MIN BEFORE FIRST FOOD/BEVERAGE/MEDICINE OF THE DAY WITH PLAIN WATER ONCE A WEEK 12 tablet 3 [DISCONTINUED] azelastine (Astelin) 0.1 % nasal spray Administer 1 spray into each nostril in the morning and 1 spray before bedtime. [DISCONTINUED] cetirizine (ZyrTEC) 10 MG tablet Take 10 mg by mouth in the morning. [DISCONTINUED] cromolyn (Opticrom) 4 % ophthalmic solution Administer 1 drop into both eyes in the morning and 1 drop at noon and 1 drop in the evening and 1 drop before bedtime. 30 mL 3 [DISCONTINUED] fluticasone (Flonase) 50 MCG/ACT nasal spray Administer 1 spray into each nostril Daily Shake gently. Before first use, prime pump. After use, clean tip and replace cap. [DISCONTINUED] lisinopril 10 MG tablet Take 10 mg by mouth Daily [DISCONTINUED] Multiple Vitamins-Minerals (Eye Vitamins) capsule Orally No [...] ROTATOR CUFF REPAIR Left Visit Vitals BP 96/68 Pulse 64 Resp 16 Ht 5' 5.5 Wt 137 lb SpO2 99% BMI 22.45 kg/m Smoking Status Never BSA 1.69 m Review of Systems Constitutional: Positive for appetite change (Decrease) and unexpected weight change (Loss). Negative for chills, fatigue and fever. Respiratory: Positive for cough. Negative for shortness of breath and wheezing. Cardiovascular: Negative for chest pain, palpitations and leg swelling. Gastrointestinal: Negative for abdominal pain, constipation, diarrhea, nausea and vomiting. Musculoskeletal: Positive for neck pain. Skin: Negative for rash. Neurological: Positive for [...] and oriented to person, place, and time. Gait: Gait abnormal (Using a walker). Psychiatric: Mood and Affect: Mood normal. Behavior: Behavior normal. Comments: Pt did repeat herself a few times, but overall responses to questions were good and conversation appropriate Assessment/Plan Diagnoses and all orders for this visit: 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 of 6 hours to 24 hours, unspecified laterality, sequela - Ambulatory referral to Neurology; [facility] consult for follow up. Provided pt with referral to Neurology for a follow up given the recent hemorrhage. She would also like to discuss with them if she is safe to drive again. Tylenol had been enough to help alleviate pt's pain as needed. Closed fracture of right side of base of skull, sequela The patient was seen today in follow up of recent hospital and rehab facility stay. All available hospital records were reviewed and discussed with the patient and her step daughter. Hospital discharge meds were reviewed. Any changes are as noted. Acute seasonal allergic rhinitis due to pollen Advised pt that her lungs were clear at this time. Cough could be due to allergy symptoms, suspect however, that it could be a cough due to Lisinopril. She can contact the office if the cough worsensor doesn't resolve. Can continue Loratadine once a day. Fall, sequela Participating in PT/OT. Need for influenza vaccination - Flu vaccine, high dose seasonal, PF (GTJ750) (Fluzone High Dose) Provided pt with Influenza vaccine today. She tolerated this well. Decreased appetite Encouraged a meal supplement drink twice a day with her meals. Encouraged her to continue to eat small meals throughout the day. Benign essential hypertension Discontinue Lisinopril due to low normal BP today, and new onset cough. Want to decrease risk of falls due to hypotension. Continue Metoprolol. Follow up for Appointment As Scheduled. documented in this encounterAlvin J. Siteman Cancer CenterLrovarkktu92-75-7468 Nurse Note* Linda Valadez RN - 05/20/2025 4:10 PM EDT Patient was educated on discharge materials and IV's were removed. Patient is aware she is going [facility] with transport. Report was given to transport and patient is on her way to [facility] facility. [facility]08-26-[facility] Nurse Note* Linda Valadez RN - 05/20/2025 4:10 PM EDT Patient was educated on discharge materials and IV's were removed. Patient is aware she is going [facility] with transport. Report was given to transport and patient is on her way to [facility] facility. documented in this encounterLima Memorial Hospital08-26-2025 Plan of care note * Plan of Care - Linda Valadez RN - 05/20/2025 1:16 PM EDT Problem: Pain Goal: Patient goal is pain score less than 4, able to rest, and participant in treatment plan as appropriate Description: INTERVENTIONS: 1. Encourage patient or legal outbound telemarketing representative to report early pain and ask [...] per policy 9. Teach patient or legal outbound telemarketing representative interventions for comforting Outcome: Adequate for [...] at the bedside 7. Instruct patient/ patient outbound telemarketing representative about use of safety devices 8. Include patient/ patient outbound telemarketing representative in decisions related to safety Outcome: [...] hygiene technique. 7. Identify and instruct patient/patient outbound telemarketing representative in use of appropriate isolation precautionsfor identified infection/symptoms. 8. Provide and discuss with patient/patient outbound telemarketing representative on educational MDRO sheet. 9. Encourage and monitor nutritional status daily and consult home care assistant if indicated. 10. Implement neutropenic guidelines as needed. Outcome: Adequate for Discharge Note: Patient has remained free from new infections. Patient educated on infection prevention such as hand hygiene. Problem: Knowledge Deficit Goal: Patient/patient outbound telemarketing representative demonstrates understanding of disease process, treatment [...] develop effective communication strategies 4. Include patient/patient outbound telemarketing representative in decisions related to communication Outcome: [...] Collaborate with ancillary departments 14. Include patient/patient outbound telemarketing representative in decisions related to anxiety Outcome: [...] care 6. Collaborate with pastoral/spiritual care, social work faculty member, mental health counselor as needed. 7. Instruct patient on diversional activities such as physical activity, distraction, and deep breathing exercises to assist with coping 8. Involve patient's outbound telemarketing representative in care Outcome: Adequate for Discharge [...] supplement as ordered 13. Collaborate with clinical home care assistant 14. Include patient/ patient's outbound telemarketing representative in decisions related to nutrition Outcome: [...] be free from fall Description: Interventions: 1. [place] to environment 2. Hourly rounds addressing the [...] non-skid footwear 11. Teach patient and patient outbound telemarketing representative to maintain environment for safety and [...] (cane, walker) within reach 19. Request patient outbound telemarketing representative bring adaptive equipment/mobility aids from home or obtain and provide as needed 20. Consult pharmacy regarding effects of med's affecting mobility, cognition, and alternatives 21. Obtain physician order for PT if risk factors associated with mobility are present 22. Obtain physician order for OT as appropriate 23. Utilize diversional activities 24. Educate patient and patient outbound telemarketing representative how to maintain a safe environment during visitationtimes (notify nurse prior to leaving bedside) 25. Consider appropriateness of medical or non-medical information officer 26. Set up voiding schedule as appropriate (every 2 hours) Outcome: Adequate for Discharge Note: Patient has remained free from falls. [facility]08-26-2025 Miscellaneous Notes* Plan of Care - Linda Valadez RN - 05/20/2025 1:16 PM EDT Problem: Pain Goal: Patient goal is pain score less than 4, able to rest, and participant in treatment plan as appropriate Description: INTERVENTIONS: 1. Encourage patient or legal outbound telemarketing representative to report early pain and ask [...] per policy 9. Teach patient or legal outbound telemarketing representative interventions for comforting Outcome: Adequate for [...] at the bedside 7. Instruct patient/ patient outbound telemarketing representative about use of safety devices 8. Include patient/ patient outbound telemarketing representative in decisions related to safety Outcome: [...] hygiene technique. 7. Identify and instruct patient/patient outbound telemarketing representative in use of appropriate isolation precautionsfor identified infection/symptoms. 8. Provide and discuss with patient/patient outbound telemarketing representative on educational MDRO sheet. 9. Encourage and monitor nutritional status daily and consult home care assistant if indicated. 10. Implement neutropenic guidelines as needed. Outcome: Adequate for Discharge Note: Patient has remained free from new infections. Patient educated on infection prevention such as hand hygiene. Problem: Knowledge Deficit Goal: Patient/patient outbound telemarketing representative demonstrates understanding of disease process, treatment [...] develop effective communication strategies 4. Include patient/patient outbound telemarketing representative in decisions related to communication Outcome: [...] Collaborate with ancillary departments 14. Include patient/patient outbound telemarketing representative in decisions related to anxiety Outcome: [...] care 6. Collaborate with pastoral/spiritual care, social work faculty member, mental health counselor as needed. 7. Instruct patient on diversional activities such as physical activity, distraction, and deep breathing exercises to assist with coping 8. Involve patient's outbound telemarketing representative in care Outcome: Adequate for Discharge [...] supplement as ordered 13. Collaborate with clinical home care assistant 14. Include patient/ patient's outbound telemarketing representative in decisions related to nutrition Outcome: [...] be free from fall Description: Interventions: 1. [place] to environment 2. Hourly rounds addressing the [...] non-skid footwear 11. Teach patient and patient outbound telemarketing representative to maintain environment for safety and [...] (cane, walker) within reach 19. Request patient outbound telemarketing representative bring adaptive equipment/mobility aids from home or obtain and provide as needed 20. Consult pharmacy regarding effects of med's affecting mobility, cognition, and alternatives 21. Obtain physician order for PT if risk factors associated with mobility are present 22. Obtain physician order for OT as appropriate 23. Utilize diversional activities 24. Educate patient and patient outbound telemarketing representative how to maintain a safe environment during visitationtimes (notify nurse prior to leaving bedside) 25. Consider appropriateness of medical or non-medical information officer 26. Set up voiding schedule as appropriate (every 2 hours) Outcome: Adequate for Discharge Note: Patient has remained free from falls. * Discharge Planning Note - Sanjay Rosenthal RN - 05/20/2025 12:32 PM EDT 05/20/25 1231 Referral To Community Referrals / Resources Provided Denies needs Services Requested Patient expects to be discharged to: [facility] Does the patient wish to have [...] Yes List Provided Yes [facility] List Provided [facility] DC Planning Complete Discharge Milestones Yes DISCHARGE PLANNING NOTE [facility] is able to accept. Pt informed and is ok w that plan Transport set for 3pm. CNspoke w pts daughter Tawnya and informed her of DC. DC packet on chart and Hens completed. RN given number for report. CRF faxed to [facility]. Sanjay Rosenthal RN * Discharge Planning Note - Dimitri Rashid - 05/20/2025 12:12 PM EDT DISCHARGE PLANNING NOTE BLS transport with PTN confirmed via [facility] to [facility] 05.20.25 at 1500 * Plan of Care - Nilda Caraballo RN - 05/19/2025 9:48 PM EDT Problem: Pain Goal: Patient goal is pain score less than 4, able to rest, and participant in treatment plan as appropriate Description: INTERVENTIONS: 1. Encourage patient or legal outbound telemarketing representative to report early pain and ask [...] per policy 9. Teach patient or legal outbound telemarketing representative interventions for comforting Note: Patient's pain [...] at the bedside 7. Instruct patient/ patient outbound telemarketing representative about use of safety devices 8. Include patient/ patient outbound telemarketing representative in decisions related to safety Note: [...] hygiene technique. 7. Identify and instruct patient/patient outbound telemarketing representative in use of appropriate isolation precautionsfor identified infection/symptoms. 8. Provide and discuss with patient/patient outbound telemarketing representative on educational MDRO sheet. 9. Encourage and monitor nutritional status daily and consult home care assistant if indicated. 10. Implement neutropenic guidelines as needed. Note: Handwashing and standard precautions maintained, patient remains free of signs and symptoms of infection, patient is afebrile, IV insertion site monitored. Will continue to monitor for signs and symptoms of infection. Problem: Knowledge Deficit Goal: Patient/patient outbound telemarketing representative demonstrates understanding of disease process, treatment [...] as indicated/ordered * Discharge Planning Note - Lynda Lu - 05/19/2025 2:36 PM EDT DISCHARGE PLANNING NOTE Referral sent to [facility] (P# ; F# ) , [facility] (P#: ; F#: ) , [facility] in [place], [place] (P# ; F#: ) * Plan of Care - Merari Cordon RPH - 05/19/2025 2:30 PM EDT Problem: Medication [...] risk medications. * Discharge Planning Note - Lynda Lu - 05/19/2025 1:20 PM EDT DISCHARGE PLANNING NOTE Referral sent to [facility], a division of [facility] P#[phone] [calling report];/[facility] (P# [calling report]; F# ) [...] Caregiver/Support System Limitations Patient/Caregiver Goals Patient/Caregiver Goals [facility] Skilled Nuring Care Skilled Care (Short [...] Yes List Provided Yes [facility] List Provided [facility] Patient Goals: Patient/Caregiver Goals Patient/Caregiver Goals: [facility] Skilled Nuring Care: Skilled Care (Short Term) Goals: Goals discharge (pt-stated) Evaluation of progress towards goal: Safe discharge from hospital Medical Intern met with patient at bedside and introduced self and explained role. Patient's PCP and pharmacy was confirmed. Patient needs assistance with ADL's and has none for DME. Per patient report: Smoking: denies ETOH: denies Drugs: denies Patient does not endorse issue obtaining food or medications and all utilities are working. Discharge disposition: SNF placement. SNF list given. Patient and family looking it over. Medical Intern will continue to follow for ongoing discharge transition needs. - Mable Fisher RN 05/19/25 12:50 PM Family wants to go to SNF closer to home instead of [facility]. Referrals sent. - Mable Fisher RN 05/19/25 1:47 PM * PT/OT/SOFT WATER MECHANIC - RADHA Christensen/Andrea - 05/19/2025 11:24 AM EDT Occupational Therapy [...] her down in the bathtub. Taken to [place] whereshe was found to have the following: B [...] Past Medical History: Diagnosis Date Breast cancer ([facility]) 6 Clicks: Daily Activity Putting on [...] Mobility Equipment: gait belt, RW, chair alarm Telemetry/Agronomy Supervisor: Yes Other: fall risk, some confusion/disorientation Pain [...] daughter Clotilde and her Lola live in [place] and Chloé family in the [place] region - Clotilde stated she would stay with [...] Patient will perform functional mobility with Modified [place] Dates: Start: 05/19/25 Expected End: 06/16/25 Description: [...] Patient will perform toilet transfers with Modified [place] Dates: Start: 05/19/25 Expected End: 06/16/25 Description: Goal Description: Disciplines: OT Problem: Transfers Dates: Start: 05/19/25 Disciplines: OT Goal: Patient will perform transfers with Modified [place] Dates: Start: 05/19/25 Expected End: 06/16/25 Description: Goal Description: Disciplines: OT Problem: Tub/Shower Transfers Dates: Start: 05/19/25 Disciplines: OT Goal: Patient will perform tub/shower transfers with Stand By Assist Dates: Start: 05/19/25 Expected End: 06/16/25 Description: Goal Description: Disciplines: OT Occupational Therapy Care Plan (Resolved) There are no resolved problems. Principal Problem: ICH (intracerebral hemorrhage) ([facility]) * PT/OT/SOFT WATER MECHANIC - Cass Alexis, PT - 05/19/2025 11:23 [...] 6 Clicks: Basic Mobility Raw Score: 17 [facility] G Code Modifier: CK Pt is an 85 yo female admit 05/17 from [facility] after found down at home by neighbor. Appears that pt had fall in kitchen and then walked to bathroom where she fell again. Pt amnestic to events. Pt with laceration to back of head and found to have skull fracture, B SAH in temporal lobes andIPH L frontal lobe. Past Medical History: Diagnosis Date Breast cancer ([facility]) Past Surgical History: Procedure Laterality Date BREAST [...] Equipment: gait belt, wheeled walker, chair alarm Telemetry/Agronomy Supervisor: Yes Oxygen Used: room air Other: fall [...] walker Other : Pt not using AD precision lens grinder. Pt did have 1 other fall earlier this year. Prior Function Lives With: Alone Receives Help From: Family (Step-dtr Clotilde and her Lola live in [place]. Clotilde reports she would be able to [...] Pt amb 12 feet in room with CLINICAL ASSESSMENT MANAGER x 2, 40 [address] [...] Goal: Patient will perform gait with Modified [place] Dates: Start: 05/19/25 Expected End: 06/06/25 Description: [...] Goal: Patient will perform transfers with Modified [place] Dates: Start: 05/19/25 Expected End: 06/06/25 Description: Goal Description: with RW support as needed Disciplines: PT Physical Therapy Care Plan (Resolved) There are no resolved problems. Principal Problem: ICH (intracerebral hemorrhage) ([facility]) * Plan of Care - Jude Tafoya RN - 05/19/2025 7:15 AM EDT Problem: Pain Goal: Patient goal is pain score less than 4, able to rest, and participant in treatment plan as appropriate Description: INTERVENTIONS: 1. Encourage patient or legal outbound telemarketing representative to report early pain and ask [...] per policy 9. Teach patient or legal outbound telemarketing representative interventions for comforting Outcome: Progressing Note: [...] at the bedside 7. Instruct patient/ patient outbound telemarketing representative about use of safety devices 8. Include patient/ patient outbound telemarketing representative in decisions related to safety Outcome: [...] hygiene technique. 7. Identify and instruct patient/patient outbound telemarketing representative in use of appropriate isolation precautionsfor identified infection/symptoms. 8. Provide and discuss with patient/patient outbound telemarketing representative on educational MDRO sheet. 9. Encourage and monitor nutritional status daily and consult home care assistant if indicated. 10. Implement neutropenic guidelines as needed. Outcome: Progressing Note: Currently being treated for infection. Care continues, along with collaboration with care team as new signs and symptoms arise. Problem: Knowledge Deficit Goal: Patient/patient outbound telemarketing representative demonstrates understanding of disease process, treatment [...] develop effective communication strategies 4. Include patient/patient outbound telemarketing representative in decisions related to communication Outcome: [...] Collaborate with ancillary departments 14. Include patient/patient outbound telemarketing representative in decisions related to anxiety Outcome: [...] care 6. Collaborate with pastoral/spiritual care, social work faculty member, mental health counselor as needed. 7. Instruct patient on diversional activities such as physical activity, distraction, and deep breathing exercises to assist with coping 8. Involve patient's outbound telemarketing representative in care Outcome: Progressing Note: Patient [...] supplement as ordered 13. Collaborate with clinical home care assistant 14. Include patient/ patient's outbound telemarketing representative in decisions related to nutrition Outcome: [...] Score of =/> 25 or indicated by [facility] Assessment Goal: Patient should be free from fall Description: Interventions: 1. [place] to environment 2. Hourly rounds addressing the [...] non-skid footwear 11. Teach patient and patient outbound telemarketing representative to maintain environment for safety and [...] (cane, walker) within reach 19. Request patient outbound telemarketing representative bring adaptive equipment/mobility aids from home or obtain and provide as needed 20. Consult pharmacy regarding effects of med's affecting mobility, cognition, and alternatives 21. Obtain physician order for PT if risk factors associated with mobility are present 22. Obtain physician order for OT as appropriate 23. Utilize diversional activities 24. Educate patient and patient outbound telemarketing representative how to maintain a safe environment during visitationtimes (notify nurse prior to leaving bedside) 25. Consider appropriateness of medical or non-medical information officer 26. Set up voiding schedule as appropriate [...] Description: INTERVENTIONS: 1. Encourage patient or legal outbound telemarketing representative to report early pain and ask [...] per policy 9. Teach patient or legal outbound telemarketing representative interventions for comforting Outcome: Progressing Note: [...] at the bedside 7. Instruct patient/ patient outbound telemarketing representative about use of safety devices 8. Include patient/ patient outbound telemarketing representative in decisions related to safety Outcome: [...] hygiene technique. 7. Identify and instruct patient/patient outbound telemarketing representative in use of appropriate isolation precautionsfor identified infection/symptoms. 8. Provide and discuss with patient/patient outbound telemarketing representative on educational MDRO sheet. 9. Encourage and monitor nutritional status daily and consult home care assistant if indicated. 10. Implement neutropenic guidelines as needed. Outcome: Progressing Note: Currently being treated for infection. Will continue to monitor for new signs and symptoms. Problem: Knowledge Deficit Goal: Patient/patient outbound telemarketing representative demonstrates understanding of disease process, treatment [...] supplement as ordered 13. Collaborate with clinical home care assistant 14. Include patient/ patient's outbound telemarketing representative in decisions related to nutrition Outcome: Progressing Note: Pt nutritional needs monitored and addressed as ordered by physician. Dietary recommendationsappreciated as ordered. Problem: Moderate - High Risk Fall Score Description: Conrad Fall Score of =/> 25 or indicated by [facility] Assessment Goal: Patient should be free from fall Description: Interventions: 1. [place] to environment 2. Hourly rounds addressing the [...] non-skid footwear 11. Teach patient and patient outbound telemarketing representative to maintain environment for safety and [...] (cane, walker) within reach 19. Request patient outbound telemarketing representative bring adaptive equipment/mobility aids from home or obtain and provide as needed 20. Consult pharmacy regarding effects of med's affecting mobility, cognition, and alternatives 21. Obtain physician order for PT if risk factors associated with mobility are present 22. Obtain physician order for OT as appropriate 23. Utilize diversional activities 24. Educate patient and patient outbound telemarketing representative how to maintain a safe environment during visitationtimes (notify nurse prior to leaving bedside) 25. Consider appropriateness of medical or non-medical information officer 26. Set up voiding schedule as appropriate (every 2 hours) Outcome: Progressing Note: Fall risk assessment preformed and safety measures in place. Education given to family/patient. Will continue to monitor. * PT/OT/SOFT WATER MECHANIC - Julienne Jolley CCC-SOFT WATER MECHANIC - 05/18/2025 2:48 PM EDT Speech Therapy [...] Dysphagia Problem: Swallowing Dates: Start: 05/17/25 Disciplines: SOFT WATER MECHANIC Goal: LTG: Patient will maintain adequate nutrition/ hydration with optimum safety and efficiency of swallowing function of oral intake without overt signs/symptoms of aspiration for the highest appropriate diet level Dates: Start: 05/17/25 Expected End: 06/17/25 Disciplines: SOFT WATER MECHANIC Goal: STG: Patient will tolerate therapeutic feeding trials of advanced textures with 90% accuracy with minimal cueing Dates: Start: 05/17/25 Expected End: 06/17/25 Disciplines: SOFT WATER MECHANIC Outcomes Date/Time User Outcome 05/18/25 1451 Julienne Jolley [facility]-SOFT WATER MECHANIC Progressing Template: ST - Rehab Speech Problem: Auditory Comprehension Dates: Start: 05/17/25 Disciplines: SOFT WATER MECHANIC Goal: LTG: Patient will comprehend communication related to basic medical and social needs and utilize compensatory strategies to maintain safety in a functional living environment Dates: Start: 05/17/25 Expected End: 06/17/25 Disciplines: SOFT WATER MECHANIC Goal: STG: Patient will answer simple yes/no questions with 90% accuracy with minimal cueing. Dates: Start: 05/17/25 Expected End: 06/17/25 Disciplines: SOFT WATER MECHANIC Problem: Verbal Expression Dates: Start: 05/17/25 Disciplines: SOFT WATER MECHANIC Goal: LTG: Patient will utilize compensatory strategies to communicate wants and needs effectively to different conversational partners, maintain safety and participate socially in a functional living environment Dates: Start: 05/17/25 Expected End: 06/17/25 Disciplines: SOFT WATER MECHANIC Goal: STG: Patient will complete simple naming tasks at word level (objects, pictures) in activities of daily living with 90% accuracy with minimal cueing Dates: Start: 05/17/25 Expected End: 06/17/25 Disciplines: SOFT WATER MECHANIC Speech Therapy Care Plan (Resolved) There are no resolved problems. Principal Problem: ICH (intracerebral hemorrhage) ([facility]) * Plan of Care - Emily Byrne RN - 05/17/2025 9:23 PM EDT Problem: Pain Goal: Patient goal is pain score less than 4, able to rest, and participant in treatment plan as appropriate Description: INTERVENTIONS: 1. Encourage patient or legal outbound telemarketing representative to report early pain and ask [...] per policy 9. Teach patient or legal outbound telemarketing representative interventions for comforting Outcome: Progressing Note: [...] at the bedside 7. Instruct patient/ patient outbound telemarketing representative about use of safety devices 8. Include patient/ patient outbound telemarketing representative in decisions related to safety Outcome: [...] hygiene technique. 7. Identify and instruct patient/patient outbound telemarketing representative in use of appropriate isolation precautionsfor identified infection/symptoms. 8. Provide and discuss with patient/patient outbound telemarketing representative on educational MDRO sheet. 9. Encourage and monitor nutritional status daily and consult home care assistant if indicated. 10. Implement neutropenic guidelines as needed. Outcome: Progressing Note: Currently being treated for infection. Will continue to monitor for new signs and symptoms. Problem: Knowledge Deficit Goal: Patient/patient outbound telemarketing representative demonstrates understanding of disease process, treatment [...] supplement as ordered 13. Collaborate with clinical home care assistant 14. Include patient/ patient's outbound telemarketing representative in decisions related to nutrition Outcome: Progressing Note: Pt nutritional needs monitored and addressed as ordered by physician. Dietary recommendationsappreciated as ordered. Problem: Moderate - High Risk Fall Score Description: Conrad Fall Score of =/> 25 or indicated by [facility] Assessment Goal: Patient should be free from fall Description: Interventions: 1. [place] to environment 2. Hourly rounds addressing the [...] non-skid footwear 11. Teach patient and patient outbound telemarketing representative to maintain environment for safety and [...] (cane, walker) within reach 19. Request patient outbound telemarketing representative bring adaptive equipment/mobility aids from home or obtain and provide as needed 20. Consult pharmacy regarding effects of med's affecting mobility, cognition, and alternatives 21. Obtain physician order for PT if risk factors associated with mobility are present 22. Obtain physician order for OT as appropriate 23. Utilize diversional activities 24. Educate patient and patient outbound telemarketing representative how to maintain a safe environment during visitationtimes (notify nurse prior to leaving bedside) 25. Consider appropriateness of medical or non-medical information officer 26. Set up voiding schedule as appropriate (every 2 hours) Outcome: Progressing Note: Fall risk assessment preformed and safety measures in place. Education given to family/patient. Will continue to monitor. * PT/OT/SOFT WATER MECHANIC - Julienne Jolley CCC-SOFT WATER MECHANIC - 05/17/2025 9:55 AM EDT Speech Therapy Evaluation Bedside Swallow/Feeding Evaluation Speech & Language Cognitive Evaluation Discharge Recommendations for Safe Patient Transition SOFT WATER MECHANIC Therapy Recommendations: Continue ST services Recommendations Diet [...] and reassess as appropriate. Prognosis Services: Skilled SOFT WATER MECHANIC services to address above deficits Prognosis/Potential: Good Considerations: Previous level of function Discharge Recommendations for Safe Patient Transition SOFT WATER MECHANIC Therapy Recommendations: Continue ST services Impressions Receptive Language: Severe Expressive Language: Severe Cognitive Linguistic: Severe Plan Frequency: 1-2days/week Duration: Until discharge Treatments/Modalities: Strategies/techniques training Need for skilled Speech Language Pathology Services to address deficits in speech/language/cognition due to a status decline resulting from trauma s/p fall. Prognosis Services: Skilled SOFT WATER MECHANIC services to address the above deficits Prognosis/Potential: [...] Dysphagia Problem: Swallowing Dates: Start: 05/17/25 Disciplines: SOFT WATER MECHANIC Goal: LTG: Patient will maintain adequate nutrition/ hydration with optimum safety and efficiency of swallowing function of oral intake without overt signs/symptoms of aspiration for the highest appropriate diet level Dates: Start: 05/17/25 Expected End: 06/17/25 Disciplines: SOFT WATER MECHANIC Goal: STG: Patient will tolerate therapeutic feeding trials of advanced textures with 90% accuracy with minimal cueing Dates: Start: 05/17/25 Expected End: 06/17/25 Disciplines: SOFT WATER MECHANIC Template: ST - Rehab Speech Problem: Auditory Comprehension Dates: Start: 05/17/25 Disciplines: SOFT WATER MECHANIC Goal: LTG: Patient will comprehend communication related to basic medical and social needs and utilize compensatory strategies to maintain safety in a functional living environment Dates: Start: 05/17/25 Expected End: 06/17/25 Disciplines: SOFT WATER MECHANIC Goal: STG: Patient will answer simple yes/no questions with 90% accuracy with minimal cueing. Dates: Start: 05/17/25 Expected End: 06/17/25 Disciplines: SOFT WATER MECHANIC Problem: Verbal Expression Dates: Start: 05/17/25 Disciplines: SOFT WATER MECHANIC Goal: LTG: Patient will utilize compensatory strategies to communicate wants and needs effectively to different conversational partners, maintain safety and participate socially in a functional living environment Dates: Start: 05/17/25 Expected End: 06/17/25 Disciplines: SOFT WATER MECHANIC Goal: STG: Patient will complete simple naming tasks at word level (objects, pictures) in activities of daily living with 90% accuracy with minimal cueing Dates: Start: 05/17/25 Expected End: 06/17/25 Disciplines: SOFT WATER MECHANIC Speech Therapy Care Plan (Resolved) There are no resolved problems. Principal Problem: ICH (intracerebral hemorrhage) ([facility]) * Plan of Care - Young Parr RN - 05/17/2025 9:21 AM EDT Problem: Pain Goal: Patient goal is pain score less than 4, able to rest, and participant in treatment plan as appropriate Description: INTERVENTIONS: 1. Encourage patient or legal outbound telemarketing representative to report early pain and ask [...] per policy 9. Teach patient or legal outbound telemarketing representative interventions for comforting Outcome: Progressing Note: [...] at the bedside 7. Instruct patient/ patient outbound telemarketing representative about use of safety devices 8. Include patient/ patient outbound telemarketing representative in decisions related to safety Outcome: [...] hygiene technique. 7. Identify and instruct patient/patient outbound telemarketing representative in use of appropriate isolation precautionsfor identified infection/symptoms. 8. Provide and discuss with patient/patient outbound telemarketing representative on educational MDRO sheet. 9. Encourage and monitor nutritional status daily and consult home care assistant if indicated. 10. Implement neutropenic guidelines as needed. Outcome: Progressing Note: Continue treatment Problem: Knowledge Deficit Goal: Patient/patient outbound telemarketing representative demonstrates understanding of disease process, treatment [...] develop effective communication strategies 4. Include patient/patient outbound telemarketing representative in decisions related to communication Outcome: [...] Collaborate with ancillary departments 14. Include patient/patient outbound telemarketing representative in decisions related to anxiety Outcome: [...] care 6. Collaborate with pastoral/spiritual care, social work faculty member, mental health counselor as needed. 7. Instruct patient on diversional activities such as physical activity, distraction, and deep breathing exercises to assist with coping 8. Involve patient's outbound telemarketing representative in care Outcome: Progressing Note: na [...] supplement as ordered 13. Collaborate with clinical home care assistant 14. Include patient/ patient's outbound telemarketing representative in decisions related to nutrition Outcome: [...] Score of =/> 25 or indicated by [facility] Assessment Goal: Patient should be free from fall Description: Interventions: 1. [place] to environment 2. Hourly rounds addressing the [...] non-skid footwear 11. Teach patient and patient outbound telemarketing representative to maintain environment for safety and [...] (cane, walker) within reach 19. Request patient outbound telemarketing representative bring adaptive equipment/mobility aids from home or obtain and provide as needed 20. Consult pharmacy regarding effects of med's affecting mobility, cognition, and alternatives 21. Obtain physician order for PT if risk factors associated with mobility are present 22. Obtain physician order for OT as appropriate 23. Utilize diversional activities 24. Educate patient and patient outbound telemarketing representative how to maintain a safe environment during visitationtimes (notify nurse prior to leaving bedside) 25. Consider appropriateness of medical or non-medical information officer 26. Set up voiding schedule as appropriate [...] Description: INTERVENTIONS: 1. Encourage patient or legal outbound telemarketing representative to report early pain and ask [...] per policy 9. Teach patient or legal outbound telemarketing representative interventions for comforting Outcome: Progressing Note: [...] at the bedside 7. Instruct patient/ patient outbound telemarketing representative about use of safety devices 8. Include patient/ patient outbound telemarketing representative in decisions related to safety Outcome: [...] hygiene technique. 7. Identify and instruct patient/patient outbound telemarketing representative in use of appropriate isolation precautionsfor identified infection/symptoms. 8. Provide and discuss with patient/patient outbound telemarketing representative on educational MDRO sheet. 9. Encourage and monitor nutritional status daily and consult home care assistant if indicated. 10. Implement neutropenic guidelines as needed. Outcome: Progressing Note: Currently being treated for UTI. Will continue to monitor for new signs and symptoms. Problem: Knowledge Deficit Goal: Patient/patient outbound telemarketing representative demonstrates understanding of disease process, treatment [...] supplement as ordered 13. Collaborate with clinical home care assistant 14. Include patient/ patient's outbound telemarketing representative in decisions related to nutrition Outcome: Progressing Note: Pt nutritional needs monitored and addressed as ordered by physician. Dietary recommendationsappreciated as ordered. Problem: Moderate - High Risk Fall Score Description: Conrad Fall Score of =/> 25 or indicated by [facility] Assessment Goal: Patient should be free from fall Description: Interventions: 1. [place] to environment 2. Hourly rounds addressing the [...] non-skid footwear 11. Teach patient and patient outbound telemarketing representative to maintain environment for safety and [...] (cane, walker) within reach 19. Request patient outbound telemarketing representative bring adaptive equipment/mobility aids from home or obtain and provide as needed 20. Consult pharmacy regarding effects of med's affecting mobility, cognition, and alternatives 21. Obtain physician order for PT if risk factors associated with mobility are present 22. Obtain physician order for OT as appropriate 23. Utilize diversional activities 24. Educate patient and patient outbound telemarketing representative how to maintain a safe environment during visitationtimes (notify nurse prior to leaving bedside) 25. Consider appropriateness of medical or non-medical information officer 26. Set up voiding schedule as appropriate (every 2 hours) Outcome: Progressing Note: Fall risk assessment preformed and safety measures in place. Education given to family/patient. Will continue to monitor. [facility] Hospital course Narrative* ALIX Marks - 05/20/2025 1:11 PM EDT Images from the original note were not included. [facility] TRAUMA SURGERY-DISCHARGE SUMMARY DISCHARGE NOTE / SUMMARY Patient ID: Mei Guardado : 1940 Acct: [id number] Admit Date: 05/16/2025 Discharge Date: 05/20/2025 Admitting Physician: Wilfredo Moreau MD Consults: Neurosurgery and neuro interventional Discharge Diagnoses: Patient Active Problem List Diagnosis Date Noted Fall at home, initial encounter 05/20/2025 Closed fracture of right side of base of skull ([facility]) 05/20/2025 Primary hypertension 05/20/2025 Traumatic rhabdomyolysis 05/20/2025 ICH (intracerebral hemorrhage) ([facility]) 05/16/2025 Past Medical History: Diagnosis Date Breast cancer ([facility]) HOSPITAL COURSE SUMMARY: Mei Guardado is an 85 y.o. White or female transferred from [place] for trauma consult after being found unresponsive [...] Lactic acidosis, leukocytosis - lactate 6.2 at [place] and WBC 20.2 - possible sepsis given [...] time of initiation Rhabdomyolysis - 354 at [place] - repeat CK 1975, myoglobin at 967 [...] MD . Specialty: Family Medicine Contact information: [facility] [id number] Time Spent: 32 minutes ALIX Friedman-C Trauma Services Pager [phone] 05/20/25 1:12 PM ALIX Marks 05/20/25 1319 documented in this encounterLima [facility]08-26-2025 Progress note* Discharge Planning Note - Sanjay Rosenthal RN - 05/20/2025 12:32 PM EDT 05/20/25 1231 Referral To Community Referrals / Resources Provided Denies needs Services Requested Patient expects to be discharged to: [facility] Does the patient wish to have [...] Yes List Provided Yes [facility] List Provided [facility] DC Planning Complete Discharge Milestones Yes DISCHARGE PLANNING NOTE [facility] is able to accept. Pt informed and is ok w that plan Transport set for 3pm. CNspoke w pts daughter Tawnya and informed her of DC. DC packet on chart and Hens completed. RN given number for report. CRF faxed to [facility]. Sanjay Rosenthal RN [facility]08-[facility] Progress note* Discharge Planning Note - Dimitri Phoenix - 05/20/2025 12:12 PM EDT DISCHARGE PLANNING NOTE BLS transport with PTN confirmed via [facility] to [facility] 8.26.25 at 1500 [facility] History of Present illness Narrative* Solomon Mccord RN - 05/20/2025 11:39 AM EDT Images from the original note were not included. FOLLOW-UP: Post-Intensive Care Rounding Note Patient: Mei Guardado : 1940 Age: 85 y.o. Length of Stay: 4 days Admission Diagnosis: ICH (intracerebral hemorrhage) (CMS-HCC) [I61.9] Reviewing patient due to her recent transfer out from Intensive Care. Recorded vital signs are stable and the patient is not noted to be in any apparent distress. Telemetry and monitoring noted. Staff may call with any issues or concerns regarding her clinical presentation or stability. Thank you, Solomon Mccord RN Rapid Response: [facility] * ALIX Marks - 05/19/2025 11:58 AM [...] Lactic acidosis, leukocytosis - lactate 6.2 at [place] and WBC 20.2 - possible sepsis given [...] initiation 5. Rhabdomyolysis (improving) - 354 at [place] - repeat CK 1975, myoglobin at 967 [...] 131/51 Pulse: 86 79 70 Resp: 21 (!) 26 Temp: 36.5 C (97.7 F) TempSrc: Oral SpO2: 93% 95% 97% Weight: Height: Temperature Range Last 24 Hours : Temp: 36.5 C (97.7 F) Temp Av.8 C (98.2 F) Min: 36.5 C (97.7F) Max: 37 C (98.6 F) Admit Weight: [...] in water, 100 mL/hr Trauma Services Pager: [phone] ALIX Marks 05/19/25 1203 * ALIX Kathleen - 05/18/2025 12:06 PM EDT TRAUMA SURGERY [...] Lactic acidosis, leukocytosis - lactate 6.2 at [place] - WBC 20.2 - possible sepsis given [...] initiation 5. Rhabdomyolysis (improving) - 354 at [place] - repeat CK this morning at 1976, [...] 138/47 Pulse: 68 72 66 73 Resp: Temp: TempSrc: SpO2: 94% 94% 95% 94% [...] can be reached via Patient Touch Pager: [phone] ALIX Kathleen 05/18/25 1217 * Sophie Whitney MD - 05/17/2025 11:54 AM EDT Daily neurovascular progress note: 05/17/25 Day 1 Problem List: Principal Problem: ICH (intracerebral hemorrhage) ([facility]) Identifying statement / history of present illness: Mei Guardado is a 85 y.o. female who presented after for whom vascular neurology was consulted formultifocal cerebral hemorrhages. She initially presented to [facility] after she was found down yesterday in [...] - 0.2 10*3/uL Differential Type AUTOMATED DIFFERENTIAL [place] draw Collection Time: 05/16/25 10:44 PM Narrative The following orders were created for panel order [place] draw. Procedure Abnormality Status --------- ------ Michelle Top On Ice[[id number]] Final result Please view results for these [...] Active Problem List Diagnosis ICH (intracerebral hemorrhage) ([facility]) Plan: We will continue to monitor clinically Vascular Neurology will continue to follow Sophie Whitney MD PGY-2 Neurology [facility] This patient is being followed by the Neurology Resident service. Contact attending directly during these hours: Monday to 7:30-8:30 A.M. to Monday 12-1:00 p.m. Primary Neurology service: [phone] Consult neurology service: [phone] Resident Stroke Service: [phone] If the patient belongs to the Stroke [...] I have reviewed the resident s note. * Mandie Tilley PA-C - 05/17/2025 5:54 AM EDT [...] Lactic acidosis, leukocytosis - lactate 6.2 at [place] - WBC 20.2 - possible sepsis given leukocytosis, tachycardia, and lactic acidosis, however no identifiable source of infection at this time. Possible aspiration given CT chest results - daily labs - trend lactate, normal here at 2 - IV fluids - blood culture and urine culture ordered - Rocephin 5. Rhabdomyolysis - 354 at [place] - repeat CK this morning at 1976, [...] Av.2 C (98.9 F) Min: 36.6 C (97.8F) Max: 37.7 C (99.9 F) Admit Weight: [...] Comments: Followed commands in BUE, able to school office assistant fingers Moves all 4 extremities spontanouesly Opens [...] 100 mL/hr, Last Rate: 100 mL/hr (05/17/25 1593) MANDIE TILLEY PA-C Trauma Services Pager: [phone] 05/17/25 4:39 PM Please note that portions of this note were generated using voice recognition M*Modal dictation software. Although every effort was made to ensure the accuracy of this automated tile presser, some errors in tile presser may have occurred. Mandie Tilley PA-C 05/17/25 1639 Mandie Tilley PA-C 05/17/25 1640 documented in this encounterLima [facility] Hospital08-25-2025 Plan of care note * Plan of Care - Nilda Caraballo RN - 05/19/2025 9:48 PM EDT Problem: Pain Goal: Patient goal is pain score less than 4, able to rest, and participant in treatment plan as appropriate Description: INTERVENTIONS: 1. Encourage patient or legal outbound telemarketing representative to report early pain and ask [...] per policy 9. Teach patient or legal outbound telemarketing representative interventions for comforting Note: Patient's pain [...] at the bedside 7. Instruct patient/ patient outbound telemarketing representative about use of safety devices 8. Include patient/ patient outbound telemarketing representative in decisions related to safety Note: [...] hygiene technique. 7. Identify and instruct patient/patient outbound telemarketing representative in use of appropriate isolation precautionsfor identified infection/symptoms. 8. Provide and discuss with patient/patient outbound telemarketing representative on educational MDRO sheet. 9. Encourage and monitor nutritional status daily and consult home care assistant if indicated. 10. Implement neutropenic guidelines as needed. Note: Handwashing and standard precautions maintained, patient remains free of signs and symptoms of infection, patient is afebrile, IV insertion site monitored. Will continue to monitor for signs and symptoms of infection. Problem: Knowledge Deficit Goal: Patient/patient outbound telemarketing representative demonstrates understanding of disease process, treatment [...] given Note: Complete Neurological assessment as indicated/ordered [facility]08-25-2025 Progress note* Discharge Planning Note - Lynda Lu - 05/19/2025 2:36 PM EDT DISCHARGE PLANNING NOTE Referral sent to [facility] (P# ; F# ) , [facility] (P#: ; F#: ) , [facility] in [place], [place] (P# ; F#: ) [facility]08-[facility] Plan of care note* Plan of Care - Merari Cordon RPH - 05/19/2025 2:30 PM EDT Problem: Medication [...] active orders for no high risk medications. [facility] Progress note* Discharge Planning Note - Lynda Lu - 05/19/2025 1:20 PM EDT DISCHARGE PLANNING NOTE Referral sent to [facility] of [facility] P#[phone] [calling report];/[facility] (P# [calling report]; F# ) [facility]08-25-2025 Progress note* Discharge Planning Note - Mable Fisher RN [...] Caregiver/Support System Limitations Patient/Caregiver Goals Patient/Caregiver Goals [facility] Skilled Nuring Care Skilled Care (Short [...] Yes List Provided Yes [facility] List Provided [facility] Patient Goals: Patient/Caregiver Goals Patient/Caregiver Goals: [facility] Skilled Nuring Care: Skilled Care (Short Term) Goals: Goals discharge (pt-stated) Evaluation of progress towards goal: Safe discharge from hospital Medical Intern met with patient at bedside and introduced self and explained role. Patient's PCP and pharmacy was confirmed. Patient needs assistance with ADL's and has none for DME. Per patient report: Smoking: denies ETOH: denies Drugs: denies Patient does not endorse issue obtaining food or medications and all utilities are working. Discharge disposition: SNF placement. SNF list given. Patient and family looking it over. Medical Intern will continue to follow for ongoing discharge transition needs. - Mable Fisher RN 05/19/25 12:50 PM Family wants to go to SNF closer to home instead of [facility]. Referrals sent. - Mable Fisher RN 05/19/25 1:47 PM [id number] Progress note* PT/OT/SOFT WATER MECHANIC - RADHA Christensen/Andrea - 05/19/2025 11:24 AM EDT Occupational Therapy [...] her down in the bathtub. Taken to [place] where[place]lle was found to have the following: [...] Past Medical History: Diagnosis Date Breast cancer ([facility]) 6 Clicks: Daily Activity Putting on [...] Mobility Equipment: gait belt, RW, chair alarm Telemetry/Agronomy Supervisor: Yes Other: fall risk, some confusion/disorientation Pain [...] daughter Clotilde and her Lola live in [place] and [place] family in the [facility] - Clotilde stated she would stay [...] Patient will perform functional mobility with Modified [place] Dates: Start: 05/19/25 Expected End: 06/16/25 Description: [...] Patient will perform toilet transfers with Modified [place] Dates: Start: 05/19/25 Expected End: 06/16/25 Description: Goal Description: Disciplines: OT Problem: Transfers Dates: Start: 05/19/25 Disciplines: OT Goal: Patient will perform transfers with Modified [place] Dates: Start: 05/19/25 Expected End: 06/16/25 Description: Goal Description: Disciplines: OT Problem: Tub/Shower Transfers Dates: Start: 05/19/25 Disciplines: OT Goal: Patient will perform tub/shower transfers with Stand By Assist Dates: Start: 05/19/25 Expected End: 06/16/25 Description: Goal Description: Disciplines: OT Occupational Therapy Care Plan (Resolved) There are no resolved problems. Principal Problem: ICH (intracerebral hemorrhage) ([facility]) [facility] Work Phone: [phone] 605-623608-25-2025 Progress note* PT/OT/SOFT WATER MECHANIC - Cass Alexis, PT - 05/19/2025 11:23 [...] 6 Clicks: Basic Mobility Raw Score: 17 CMS G Code Modifier: CK Pt is an 85 yo female admit 05/17 from [facility] after found down at home by neighbor. Appears that pt had fall in kitchen and then walked to bathroom where she fell again. Pt amnestic to events. Pt with laceration to back of head and found to have skull fracture, B SAH in temporal lobes andIPH L frontal lobe. Past Medical History: Diagnosis Date Breast cancer ([facility]) Past Surgical History: Procedure Laterality Date [...] Equipment: gait belt, wheeled walker, chair alarm Telemetry/Agronomy Supervisor: Yes Oxygen Used: room air Other: fall [...] walker Other : Pt not using AD precision lens grinder. Pt did have 1 other fall earlier this year. Prior Function Lives With: Alone Receives Help From: Family (Step-dtr Clotilde and her Lola live in [place]. Clotilde reports she would be able to [...] Pt amb 12 feet in room with CLINICAL ASSESSMENT MANAGER x 2, 40 [address] [...] Goal: Patient will perform gait with Modified [place] Dates: Start: 05/19/25 Expected End: 06/06/25 Description: [...] Goal: Patient will perform transfers with Modified [place] Dates: Start: 05/19/25 Expected End: 06/06/25 Description: Goal Description: with RW support as needed Disciplines: PT Physical Therapy Care Plan (Resolved) There are no resolved problems. Principal Problem: ICH (intracerebral hemorrhage) ([facility]) [facility]stimThe [facility] [id number] Plan of care note* Plan of Care - Jude Tafoya RN - 05/19/2025 7:15 AM EDT Problem: Pain Goal: Patient goal is pain score less than 4, able to rest, and participant in treatment plan as appropriate Description: INTERVENTIONS: 1. Encourage patient or legal outbound telemarketing representative to report early pain and ask [...] per policy 9. Teach patient or legal outbound telemarketing representative interventions for comforting Outcome: Progressing Note: [...] at the bedside 7. Instruct patient/ patient outbound telemarketing representative about use of safety devices 8. Include patient/ patient outbound telemarketing representative in decisions related to safety Outcome: [...] hygiene technique. 7. Identify and instruct patient/patient outbound telemarketing representative in use of appropriate isolation precautionsfor identified infection/symptoms. 8. Provide and discuss with patient/patient outbound telemarketing representative on educational MDRO sheet. 9. Encourage and monitor nutritional status daily and consult home care assistant if indicated. 10. Implement neutropenic guidelines as needed. Outcome: Progressing Note: Currently being treated for infection. Care continues, along with collaboration with care team as new signs and symptoms arise. Problem: Knowledge Deficit Goal: Patient/patient outbound telemarketing representative demonstrates understanding of disease process, treatment [...] develop effective communication strategies 4. Include patient/patient outbound telemarketing representative in decisions related to communication Outcome: [...] Collaborate with ancillary departments 14. Include patient/patient outbound telemarketing representative in decisions related to anxiety Outcome: [...] care 6. Collaborate with pastoral/spiritual care, social work faculty member, mental health counselor as needed. 7. Instruct patient on diversional activities such as physical activity, distraction, and deep breathing exercises to assist with coping 8. Involve patient's outbound telemarketing representative in care Outcome: Progressing Note: Patient [...] supplement as ordered 13. Collaborate with clinical home care assistant 14. Include patient/ patient's outbound telemarketing representative in decisions related to nutrition Outcome: [...] Moderate - High Risk Fall Score Description: [place] Fall Score of =/> 25 or indicated by [facility] Assessment Goal: Patient should be free from fall Description: Interventions: 1. [place] to environment 2. Hourly rounds addressing the [...] non-skid footwear 11. Teach patient and patient outbound telemarketing representative to maintain environment for safety and [...] (cane, walker) within reach 19. Request patient outbound telemarketing representative bring adaptive equipment/mobility aids from home or obtain and provide as needed 20. Consult pharmacy regarding effects of med's affecting mobility, cognition, and alternatives 21. Obtain physician order for PT if risk factors associated with mobility are present 22. Obtain physician order for OT as appropriate 23. Utilize diversional activities 24. Educate patient and patient outbound telemarketing representative how to maintain a safe environment during visitationtimes (notify nurse prior to leaving bedside) 25. Consider appropriateness of medical or non-medical information officer 26. Set up voiding schedule as appropriate (every 2 hours) Outcome: Progressing Note: Fall risk assessment preformed and safety measures in place. Education given to family/patient. Care continues. [facility] NeurostimThe [facility] [id number] Plan of care note* Plan of Care - Emily Byrne RN - 05/18/2025 8:47 PM EDT Problem: Pain Goal: Patient goal is pain score less than 4, able to rest, and participant in treatment plan as appropriate Description: INTERVENTIONS: 1. Encourage patient or legal outbound telemarketing representative to report early pain and ask [...] per policy 9. Teach patient or legal outbound telemarketing representative interventions for comforting Outcome: Progressing Note: [...] at the bedside 7. Instruct patient/ patient outbound telemarketing representative about use of safety devices 8. Include patient/ patient outbound telemarketing representative in decisions related to safety Outcome: [...] hygiene technique. 7. Identify and instruct patient/patient outbound telemarketing representative in use of appropriate isolation precautionsfor identified infection/symptoms. 8. Provide and discuss with patient/patient outbound telemarketing representative on educational MDRO sheet. 9. Encourage and monitor nutritional status daily and consult home care assistant if indicated. 10. Implement neutropenic guidelines as needed. Outcome: Progressing Note: Currently being treated for infection. Will continue to monitor for new signs and symptoms. Problem: Knowledge Deficit Goal: Patient/patient outbound telemarketing representative demonstrates understanding of disease process, treatment [...] supplement as ordered 13. Collaborate with clinical home care assistant 14. Include patient/ patient's outbound telemarketing representative in decisions related to nutrition Outcome: Progressing Note: Pt nutritional needs monitored and addressed as ordered by physician. Dietary recommendationsappreciated as ordered. Problem: Moderate - High Risk Fall Score Description: Conrad Fall Score of =/> 25 or indicated by [facility] Assessment Goal: Patient should be free from fall Description: Interventions: 1. [place] to environment 2. Hourly rounds addressing the [...] non-skid footwear 11. Teach patient and patient outbound telemarketing representative to maintain environment for safety and [...] (cane, walker) within reach 19. Request patient outbound telemarketing representative bring adaptive equipment/mobility aids from home or obtain and provide as needed 20. Consult pharmacy regarding effects of med's affecting mobility, cognition, and alternatives 21. Obtain physician order for PT if risk factors associated with mobility are present 22. Obtain physician order for OT as appropriate 23. Utilize diversional activities 24. Educate patient and patient outbound telemarketing representative how to maintain a safe environment during visitationtimes (notify nurse prior to leaving bedside) 25. Consider appropriateness of medical or non-medical information officer 26. Set up voiding schedule as appropriate (every 2 hours) Outcome: Progressing Note: Fall risk assessment preformed and safety measures in place. Education given to family/patient. Will continue to monitor. [facility]08-24-2025 Progress note* PT/OT/SOFT WATER MECHANIC - Julienne Jolley CCC- SOFT WATER MECHANIC - 05/18/2025 2:48 PM EDT Speech Therapy [...] Dysphagia Problem: Swallowing Dates: Start: 05/17/25 Disciplines: SOFT WATER MECHANIC Goal: LTG: Patient will maintain adequate nutrition/ hydration with optimum safety and efficiency of swallowing function of oral intake without overt signs/symptoms of aspiration for the highest appropriate diet level Dates: Start: 05/17/25 Expected End: 06/17/25 Disciplines: SOFT WATER MECHANIC Goal: STG: Patient will tolerate therapeutic feeding trials of advanced textures with 90% accuracy with minimal cueing Dates: Start: 05/17/25 Expected End: 06/17/25 Disciplines: SOFT WATER MECHANIC Outcomes Date/Time User Outcome 05/18/25 1451 Julienne Jolley CCC-GI Progressing Template: ST - Rehab Speech Problem: Auditory Comprehension Dates: Start: 05/17/25 Disciplines: SOFT WATER MECHANIC Goal: LTG: Patient will comprehend communication related to basic medical and social needs and utilize compensatory strategies to maintain safety in a functional living environment Dates: Start: 05/17/25 Expected End: 06/17/25 Disciplines: SOFT WATER MECHANIC Goal: STG: Patient will answer simple yes/no questions with 90% accuracy with minimal cueing. Dates: Start: 05/17/25 Expected End: 06/17/25 Disciplines: SOFT WATER MECHANIC Problem: Verbal Expression Dates: Start: 05/17/25 Disciplines: SOFT WATER MECHANIC Goal: LTG: Patient will utilize compensatory strategies to communicate wants and needs effectively to different conversational partners, maintain safety and participate socially in a functional living environment Dates: Start: 05/17/25 Expected End: 06/17/25 Disciplines: SOFT WATER MECHANIC Goal: STG: Patient will complete simple naming tasks at word level (objects, pictures) in activities of daily living with 90% accuracy with minimal cueing Dates: Start: 05/17/25 Expected End: 06/17/25 Disciplines: SOFT WATER MECHANIC Speech Therapy Care Plan (Resolved) There are no resolved problems. Principal Problem: ICH (intracerebral hemorrhage) ([facility]) [facility]08-23-2025 Plan of care note* Plan of Care - Emily Byrne RN - 05/17/2025 9:23 PM EDT Problem: Pain Goal: Patient goal is pain score less than 4, able to rest, and participant in treatment plan as appropriate Description: INTERVENTIONS: 1. Encourage patient or legal outbound telemarketing representative to report early pain and ask [...] per policy 9. Teach patient or legal outbound telemarketing representative interventions for comforting Outcome: Progressing Note: [...] at the bedside 7. Instruct patient/ patient outbound telemarketing representative about use of safety devices 8. Include patient/ patient outbound telemarketing representative in decisions related to safety Outcome: [...] hygiene technique. 7. Identify and instruct patient/patient outbound telemarketing representative in use of appropriate isolation precautionsfor identified infection/symptoms. 8. Provide and discuss with patient/patient outbound telemarketing representative on educational MDRO sheet. 9. Encourage and monitor nutritional status daily and consult home care assistant if indicated. 10. Implement neutropenic guidelines as needed. Outcome: Progressing Note: Currently being treated for infection. Will continue to monitor for new signs and symptoms. Problem: Knowledge Deficit Goal: Patient/patient outbound telemarketing representative demonstrates understanding of disease process, treatment [...] supplement as ordered 13. Collaborate with clinical home care assistant 14. Include patient/ patient's outbound telemarketing representative in decisions related to nutrition Outcome: Progressing Note: Pt nutritional needs monitored and addressed as ordered by physician. Dietary recommendationsappreciated as ordered. Problem: Moderate - High Risk Fall Score Description: Conrad Fall Score of =/> 25 or indicated by [facility] Assessment Goal: Patient should be free from fall Description: Interventions: 1. [place]blanc to environment 2. Hourly rounds addressing the [...] non-skid footwear 11. Teach patient and patient outbound telemarketing representative to maintain environment for safety and [...] (cane, walker) within reach 19. Request patient outbound telemarketing representative bring adaptive equipment/mobility aids from home or obtain and provide as needed 20. Consult pharmacy regarding effects of med's affecting mobility, cognition, and alternatives 21. Obtain physician order for PT if risk factors associated with mobility are present 22. Obtain physician order for OT as appropriate 23. Utilize diversional activities 24. Educate patient and patient outbound telemarketing representative how to maintain a safe environment during visitationtimes (notify nurse prior to leaving bedside) 25. Consider appropriateness of medical or non-medical information officer 26. Set up voiding schedule as appropriate (every 2 hours) Outcome: Progressing Note: Fall risk assessment preformed and safety measures in place. Education given to family/patient. Will continue to monitor. [facility]08-23-2025 Consult note* Crescencio Cox, TRACY - 05/17/2025 12:43 PM EDTAssociated Order(s): IP CONSULT TO NEUROSURGERY Images from the original note were not included. [facility] [address] [place] [address], [address] [place] [address] * NEUROSURGERY CONSULT NOTE DATE:05/17/2025 PATIENT'S NAME: Mei Guardado PATIENT'S PATIENT'S : 1940 NEUROSURGERY ATTENDING: [place] REASON FOR CONSULT [facility] HISTORY OF PRESENT ILLNESS Mei Guardado is a 85 y.o. White or female who presented to [facility] after beingfound down in her bathtub. She had an unknown downtime. [facility]. Neurosurgery consulted for evaluation. ALLERGIES No Known Allergies MEDICATIONS Current Facility-Administered Medications: acetaminophen (TYLENOL EXTRA STRENGTH) tablet 500 mg, 500 mg, oral, Q6H PRN OR acetaminophen (TYLENOL) 650 mg/20.3 mL solution 500 mg, 500 mg, nasogastric, Q6H PRN OR acetaminophen (TYLENOL) suppository 650 mg, 650 mg, rectal, Q6H PRN, Mary Lowe APRN-SHAYNA calcium gluconate IVPB 1000 mg/50 mL (20 mg/mL premix), 1,000 mg, intravenous, PRN OR calcium gluconate IVPB 2000 mg/100 mL (20 mg/mL premix), 2,000 mg, intravenous, PRN OR calcium gluconate 3,000 mg in sodium chloride 0.9 % 100 mL IVPB, 3,000 mg, intravenous, PRN, Mary Lowe APRN-EXCEL SPECIALIST cefTRIAXone (ROCEPHIN) 1,000 mg in sodium chloride 0.9 % 50 mL IVPB W/ADAPTER, 1,000 mg, intravenous, Q24H, Salome Chávez APRN-EXCEL SPECIALIST dextrose (GLUTOSE) 40 % gel 15 g, 15 g, oral, PRN, Mary Lowe TACKING STITCH REMOVER-SHAYNA dextrose 5 % (D5W) infusion, 100 mL/hr, intravenous, Continuous PRN, Mary Lowe TACKING STITCH REMOVER-EXCEL SPECIALIST dextrose 50 % in water (D50W) 50% solution 25 mL, 25 mL, intravenous, PRN, Mary Lowe TACKING STITCH REMOVER-EXCEL SPECIALIST glucagon HCL injection 1 mg, 1 mg, intramuscular, PRN, Mary Lowe TACKING STITCH REMOVER-EXCEL SPECIALIST hydrALAZINE (APRESOLINE) injection 10 mg, 10 mg, [...] mg, 500 mg,oral, Q12H SHANTELLE, Mary Lowe TACKING STITCH REMOVER-EXCEL SPECIALIST magnesium sulfate IVPB 2000 mg/50 mL in iso-osmotic water (40 mg/mL premix), 2,000 mg, intravenous,PRN, Stopped at 05/17/25 0415 OR magnesium sulfate IVPB 4000 mg/100 mL in iso-osmotic water (40mg/mL premix), 4,000 mg, intravenous, PRN, Mary Lowe TACKING STITCH REMOVER-EXCEL SPECIALIST ondansetron (PF) (ZOFRAN) injection 4 mg, 4 mg, intravenous, Q6H PRN, Mary Lowe TACKING STITCH REMOVER-EXCEL SPECIALIST pantoprazole (PROTONIX) injection 40 mg, 40 mg, intravenous, QAM AC, Mary Lowe APRN-EXCEL SPECIALIST, 40 mg at 05/17/25 0612 polyethylene glycol (GLYCOLAX) packet 17 g, 17 g, oral, Daily PRN, Bashar R Kahook, TACKING STITCH REMOVER-EXCEL SPECIALIST potassium chloride (K-TAB,KLOR-CON) CR tablet 20-40 mEq, 20-40 mEq, oral, PRN OR potassium chloride (KAYCIEL) 20 mEq/15 mL solution 20-40 mEq, 20-40 mEq, oral, PRN, Bashar R Kahook, TACKING STITCH REMOVER-EXCEL SPECIALIST potassium chloride IVPB 10 mEq/50 mL in water (0.2 mEq/mL premix), 10 mEq, intravenous, PRN OR potassium chloride IVPB 10 mEq/100 mL in water (0.1 mEq/mL premix), 10 mEq, intravenous, PRN, BasharR Kahook, TACKING STITCH REMOVER-EXCEL SPECIALIST sennosides-docusate sodium (SENOKOT-S) 8.6-50 mg 2 tablet, 2 tablet, oral, Nightly, Bashar R Kahook, TACKING STITCH REMOVER-EXCEL SPECIALIST sodium phosphate 20 mmol in sodium chloride 0.9 % 250 mL IVPB, 20 mmol, intravenous, PRN OR sodium phosphate 20 mmol in sodium chloride 0.9 % 100 mL IVPB, 20 mmol, intravenous, PRN OR sod phos di, mono-K phos mono (K-PHOS NEUTRAL) 250 mg tablet 2 tablet, 2 tablet, oral, PRN, Bashar R Kahook, TACKING STITCH REMOVER-EXCEL SPECIALIST sodium chloride 0.9 % flush 3 mL, 3 mL, intravenous, PRN, Bashar R Kahook, TACKING STITCH REMOVER-EXCEL SPECIALIST sodium chloride 0.9 % flush 3 mL, 3 mL, intravenous, Q12H SHANTELLE, Bashar R Kahook, TACKING STITCH REMOVER-EXCEL SPECIALIST, 3 mL at 05/17/25 0832 sodium chloride 0.9 % infusion, 10 mL/hr, intravenous, Continuous PRN, Bashar R Kahook, TACKING STITCH REMOVER-EXCEL SPECIALIST sodium chloride 0.9 % infusion, 10 mL/hr, intravenous, Continuous PRN, Bashar R Kahook, TACKING STITCH REMOVER-EXCEL SPECIALIST sodium chloride 0.9 % infusion, 10 mL/hr, intravenous, Continuous PRN, Bashar R Kahook, TACKING STITCH REMOVER-EXCEL SPECIALIST sodium chloride 0.9 % infusion, 100 mL/hr, intravenous, Continuous, Bashar R Kahook, TACKING STITCH REMOVER-EXCEL SPECIALIST, LastRate: 100 mL/hr at 05/17/25 0134, 100 mL/hr at 05/17/25 0134 PAST MEDICAL AND SURGICAL HISTORY Past Medical History: Diagnosis Date Breast cancer ([facility]) Past Surgical History: Procedure Laterality Date [...] 0433 05/17/25 0311 05/17/25 0120 05/16/25 2244 05/16/253 SODIUM mmol/L -- 142 -- -- 141 [...] Component Value Units Date/Time Blood culture #1 [[id number]] Collected: 05/16/252307 Specimen: Blood, Venous Updated: 05/17/25 120 CULTURE RESULTS NO GROWTH <24 HRS Narrative: Suboptimal volume of blood collected, Results may be affected. Blood culture #2 [[id number]] Collected: 05/16/252307 Specimen: Blood, Venous Updated: 05/17/25 120 CULTURE RESULTS NO GROWTH <24 HRS Narrative: Suboptimal volume of blood collected, Results may be affected. Urine Culture Urine, Indwelling Catheter [[id number]] Collected: 05/16/252307 Specimen: Urine, Indwelling Catheter Updated: [...] herniation Finalized by Pako Estevez MD on :54 AM ASSESSMENT Intracranial Hemorrhage w/ slight shift 2mm w/ no transtentorial herniation SAH PLAN - Non surgical treatment for IPH/SAH - MRI pending for clearing of C-spine, ordered by Trauma - Hold AC/AP until there is [address] head[address] - Neurosurgery to sign off per Dr. Kellogg - remainder per trauma. AHMET Vega-, COVER CREASER [facility] EPIC Chat preferred 05/17/25 12:43 PM To find out which ANA is on for the day please go to ON-Call Finder in [employer] or [employer] and use log in [employer] and search for PTH Neurosurgery TRACY Garcia 05/17/25 1253 [facility] Work Phone: [phone] 227-490408-23-2025 Consult note* TRACY Garcia - 05/17/2025 12:43 PM EDTAssociated Order(s): IP CONSULT TO NEUROSURGERY Images from the original note were not included. [facility] [address] [place] [address], [address] [place] [address] * NEUROSURGERY CONSULT NOTE DATE:05/17/2025 PATIENT'S NAME: Mei Guardado PATIENT'S PATIENT'S : 1940 NEUROSURGERY ATTENDING: [place] REASON FOR CONSULT [facility] HISTORY OF PRESENT ILLNESS Mei Guardado is a 85 y.o. White or female who presented to [facility] after beingfound down in her bathtub. She had an unknown downtime. CT of the brain was done showig mulitple SAH and IPH's. Neurosurgery consulted for evaluation. ALLERGIES No Known Allergies MEDICATIONS Current Facility-Administered Medications: acetaminophen (TYLENOL EXTRA STRENGTH) tablet 500 mg, 500 mg, oral, Q6H PRN OR acetaminophen (TYLENOL) 650 mg/20.3 mL solution 500 mg, 500 mg, nasogastric, Q6H PRN OR acetaminophen (TYLENOL) suppository 650 mg, 650 mg, rectal, Q6H PRN, Mary Lowe APRN-EXCEL SPECIALIST calcium gluconate IVPB 1000 mg/50 mL (20 mg/mL premix), 1,000 mg, intravenous, PRN OR calcium gluconate IVPB 2000 mg/100 mL (20 mg/mL premix), 2,000 mg, intravenous, PRN OR calcium gluconate 3,000 mg in sodium chloride 0.9 % 100 mL IVPB, 3,000 mg, intravenous, PRN, Mary Lowe APRN-SHAYNA cefTRIAXone (ROCEPHIN) 1,000 mg in sodium chloride 0.9 % 50 mL IVPB W/ADAPTER, 1,000 mg, intravenous, Q24H, Salome Chávez APRN-SHAYNA dextrose (GLUTOSE) 40 % gel 15 g, 15 g, oral, PRN, Mary Lowe APRN-SHAYNA dextrose 5 % (D5W) infusion, 100 mL/hr, intravenous, Continuous PRN, Mary Lowe APRN-SHAYNA dextrose 50 % in water (D50W) 50% solution 25 mL, 25 mL, intravenous, PRN, Mary Lowe TACKING STITCH REMOVER-EXCEL SPECIALIST glucagon HCL injection 1 mg, 1 mg, intramuscular, PRN, Mary Lowe APRN-SHAYNA hydrALAZINE (APRESOLINE) injection 10 mg, 10 mg, [...] mg, 500 mg,oral, Q12H SHANTELLE, Mary Lowe APRN-SHAYNA magnesium sulfate IVPB 2000 mg/50 mL in iso-osmotic water (40 mg/mL premix), 2,000 mg, intravenous,PRN, Stopped at 05/17/25 0415 OR magnesium sulfate IVPB 4000 mg/100 mL in iso-osmotic water (40mg/mL premix), 4,000 mg, intravenous, PRN, Mary Adamsk, TACKING STITCH REMOVER-EXCEL SPECIALIST ondansetron (PF) (ZOFRAN) injection 4 mg, 4 mg, intravenous, Q6H PRN, Mary Bondoocandida, TACKING STITCH REMOVER-EXCEL SPECIALIST pantoprazole (PROTONIX) injection 40 mg, 40 mg, intravenous, QAM AC, Mary Lowe, TACKING STITCH REMOVER-EXCEL SPECIALIST, 40 mg at 05/17/25 0612 polyethylene glycol (GLYCOLAX) packet 17 g, 17 g, oral, Daily PRN, Mary Lowe, TACKING STITCH REMOVER-EXCEL SPECIALIST potassium chloride (K-TAB,KLOR-CON) CR tablet 20-40 mEq, 20-40 mEq, oral, PRN OR potassium chloride (KAYCIEL) 20 mEq/15 mL solution 20-40 mEq, 20-40 mEq, oral, PRN, Mary Adamsk, TACKING STITCH REMOVER-EXCEL SPECIALIST potassium chloride IVPB 10 mEq/50 mL in water (0.2 mEq/mL premix), 10 mEq, intravenous, PRN OR potassium chloride IVPB 10 mEq/100 mL in water (0.1 mEq/mL premix), 10 mEq, intravenous, PRN, Anselmo Adamsk, TACKING STITCH REMOVER-EXCEL SPECIALIST sennosides-docusate sodium (SENOKOT-S) 8.6-50 mg 2 tablet, 2 tablet, oral, Nightly, Mary Adamsk, TACKING STITCH REMOVER-EXCEL SPECIALIST sodium phosphate 20 mmol in sodium chloride 0.9 % 250 mL IVPB, 20 mmol, intravenous, PRN OR sodium phosphate 20 mmol in sodium chloride 0.9 % 100 mL IVPB, 20 mmol, intravenous, PRN OR sod phos di, mono-K phos mono (K-PHOS NEUTRAL) 250 mg tablet 2 tablet, 2 tablet, oral, PRN, Mary Bondook, TACKING STITCH REMOVER-EXCEL SPECIALIST sodium chloride 0.9 % flush 3 mL, 3 mL, intravenous, PRN, Mary Bondook, TACKING STITCH REMOVER-EXCEL SPECIALIST sodium chloride 0.9 % flush 3 mL, 3 mL, intravenous, Q12H SHANTELLE, Bashar R Kahook, TACKING STITCH REMOVER-EXCEL SPECIALIST, 3 mL at 05/17/25 0832 sodium chloride 0.9 % infusion, 10 mL/hr, intravenous, Continuous PRN, Bashar R Kahook, TACKING STITCH REMOVER-EXCEL SPECIALIST sodium chloride 0.9 % infusion, 10 mL/hr, intravenous, Continuous PRN, Bashar R Kahook, TACKING STITCH REMOVER-EXCEL SPECIALIST sodium chloride 0.9 % infusion, 10 mL/hr, intravenous, Continuous PRN, Bashar R Kahook, TACKING STITCH REMOVER-EXCEL SPECIALIST sodium chloride 0.9 % infusion, 100 mL/hr, intravenous, Continuous, Bashar R Kahook, TACKING STITCH REMOVER-EXCEL SPECIALIST, LastRate: 100 mL/hr at 05/17/25 0134, 100 mL/hr at 05/17/25 0134 PAST MEDICAL AND SURGICAL HISTORY Past Medical History: Diagnosis Date Breast cancer ([facility]) Past Surgical History: Procedure Laterality Date [...] Units 05/17/25 0433 05/17/25 0311 05/17/25 0120 05/16/25224305/16/252242 SODIUM mmol/L -- 142 -- -- 141 [...] Component Value Units Date/Time Blood culture #1 [[id number]] Collected: 05/16/252307 Specimen: Blood, Venous Updated: 05/17/251201 CULTURE RESULTS NO GROWTH <24 HRS Narrative: Suboptimal volume of blood collected, Results may be affected. Blood culture #2 [[id number]] Collected: 05/16/252307 Specimen: Blood, Venous Updated: 05/17/251201 CULTURE RESULTS NO GROWTH <24 HRS Narrative: Suboptimal volume of blood collected, Results may be affected. Urine Culture Urine, Indwelling Catheter [[id number]] Collected: 05/16/252307 Specimen: Urine, Indwelling Catheter Updated: [...] per Dr. Kellogg - remainder per trauma. SITA Vega, COVER CREASER [facility] EPIC Chat preferred 05/17/25 12:43 PM To find out which ANA is on for the day please go to ON-Call Finder in [employer] or [employer] and use log in [employer] and search for PTH Neurosurgery TRACY Garcia 05/17/25 1253 [facility] Progress note* PT/OT/SOFT WATER MECHANIC - Julienne Jolley CCC-SOFT WATER MECHANIC - 05/17/2025 9:55 AM EDT Speech Therapy Evaluation Bedside Swallow/Feeding Evaluation Speech & Language Cognitive Evaluation Discharge Recommendations for Safe Patient Transition SOFT WATER MECHANIC Therapy Recommendations: Continue ST services Recommendations Diet [...] and reassess as appropriate. Prognosis Services: Skilled SOFT WATER MECHANIC services to address above deficits Prognosis/Potential: Good Considerations: Previous level of function Discharge Recommendations for Safe Patient Transition SOFT WATER MECHANIC Therapy Recommendations: Continue ST services Impressions Receptive Language: Severe Expressive Language: Severe Cognitive Linguistic: Severe Plan Frequency: 1-2days/week Duration: Until discharge Treatments/Modalities: Strategies/techniques training Need for skilled Speech Language Pathology Services to address deficits in speech/language/cognition due to a status decline resulting from trauma s/p fall. Prognosis Services: Skilled SOFT WATER MECHANIC services to address the above deficits Prognosis/Potential: [...] Dysphagia Problem: Swallowing Dates: Start: 05/17/25 Disciplines: SOFT WATER MECHANIC Goal: LTG: Patient will maintain adequate nutrition/ hydration with optimum safety and efficiency of swallowing function of oral intake without overt signs/symptoms of aspiration for the highest appropriate diet level Dates: Start: 05/17/25 Expected End: 06/17/25 Disciplines: SOFT WATER MECHANIC Goal: STG: Patient will tolerate therapeutic feeding trials of advanced textures with 90% accuracy with minimal cueing Dates: Start: 05/17/25 Expected End: 06/17/25 Disciplines: SOFT WATER MECHANIC Template: ST - Rehab Speech Problem: Auditory Comprehension Dates: Start: 05/17/25 Disciplines: SOFT WATER MECHANIC Goal: LTG: Patient will comprehend communication related to basic medical and social needs and utilize compensatory strategies to maintain safety in a functional living environment Dates: Start: 05/17/25 Expected End: 06/17/25 Disciplines: SOFT WATER MECHANIC Goal: STG: Patient will answer simple yes/no questions with 90% accuracy with minimal cueing. Dates: Start: 05/17/25 Expected End: 06/17/25 Disciplines: SOFT WATER MECHANIC Problem: Verbal Expression Dates: Start: 05/17/25 Disciplines: SOFT WATER MECHANIC Goal: LTG: Patient will utilize compensatory strategies to communicate wants and needs effectively to different conversational partners, maintain safety and participate socially in a functional living environment Dates: Start: 05/17/25 Expected End: 06/17/25 Disciplines: SOFT WATER MECHANIC Goal: STG: Patient will complete simple naming tasks at word level (objects, pictures) in activities of daily living with 90% accuracy with minimal cueing Dates: Start: 05/17/25 Expected End: 06/17/25 Disciplines: SOFT WATER MECHANIC Speech Therapy Care Plan (Resolved) There are no resolved problems. Principal Problem: ICH (intracerebral hemorrhage) ([facility]) [facility]stimThe [facility] [id number] Plan of care note* Plan of Care - Young Parr RN - 05/17/2025 9:21 AM EDT Problem: Pain Goal: Patient goal is pain score less than 4, able to rest, and participant in treatment plan as appropriate Description: INTERVENTIONS: 1. Encourage patient or legal outbound telemarketing representative to report early pain and ask [...] per policy 9. Teach patient or legal outbound telemarketing representative interventions for comforting Outcome: Progressing Note: [...] at the bedside 7. Instruct patient/ patient outbound telemarketing representative about use of safety devices 8. Include patient/ patient outbound telemarketing representative in decisions related to safety Outcome: [...] hygiene technique. 7. Identify and instruct patient/patient outbound telemarketing representative in use of appropriate isolation precautionsfor identified infection/symptoms. 8. Provide and discuss with patient/patient outbound telemarketing representative on educational MDRO sheet. 9. Encourage and monitor nutritional status daily and consult home care assistant if indicated. 10. Implement neutropenic guidelines as needed. Outcome: Progressing Note: Continue treatment Problem: Knowledge Deficit Goal: Patient/patient outbound telemarketing representative demonstrates understanding of disease process, treatment [...] develop effective communication strategies 4. Include patient/patient outbound telemarketing representative in decisions related to communication Outcome: [...] Collaborate with ancillary departments 14. Include patient/patient outbound telemarketing representative in decisions related to anxiety Outcome: [...] care 6. Collaborate with pastoral/spiritual care, social work faculty member, mental health counselor as needed. 7. Instruct patient on diversional activities such as physical activity, distraction, and deep breathing exercises to assist with coping 8. Involve patient's outbound telemarketing representative in care Outcome: Progressing Note: na [...] supplement as ordered 13. Collaborate with clinical home care assistant 14. Include patient/ patient's outbound telemarketing representative in decisions related to nutrition Outcome: [...] Score of =/> 25 or indicated by [facility] Assessment Goal: Patient should be free from fall Description: Interventions: 1. [place] to environment 2. Hourly rounds addressing the [...] non-skid footwear 11. Teach patient and patient outbound telemarketing representative to maintain environment for safety and [...] (cane, walker) within reach 19. Request patient outbound telemarketing representative bring adaptive equipment/mobility aids from home or obtain and provide as needed 20. Consult pharmacy regarding effects of med's affecting mobility, cognition, and alternatives 21. Obtain physician order for PT if risk factors associated with mobility are present 22. Obtain physician order for OT as appropriate 23. Utilize diversional activities 24. Educate patient and patient outbound telemarketing representative how to maintain a safe environment during visitationtimes (notify nurse prior to leaving bedside) 25. Consider appropriateness of medical or non-medical information officer 26. Set up voiding schedule as appropriate (every 2 hours) Outcome: Progressing Note: Fall risk assessment preformed and safety measures in place. Education given to family/patient. Will continue to monitor. [employer] [id number] Plan of care note* Plan of Care - Emily Byrne RN - 05/17/2025 3:52 AM EDT Problem: Pain Goal: Patient goal is pain score less than 4, able to rest, and participant in treatment plan as appropriate Description: INTERVENTIONS: 1. Encourage patient or legal outbound telemarketing representative to report early pain and ask [...] per policy 9. Teach patient or legal outbound telemarketing representative interventions for comforting Outcome: Progressing Note: [...] at the bedside 7. Instruct patient/ patient outbound telemarketing representative about use of safety devices 8. Include patient/ patient outbound telemarketing representative in decisions related to safety Outcome: [...] hygiene technique. 7. Identify and instruct patient/patient outbound telemarketing representative in use of appropriate isolation precautionsfor identified infection/symptoms. 8. Provide and discuss with patient/patient outbound telemarketing representative on educational MDRO sheet. 9. Encourage and monitor nutritional status daily and consult home care assistant if indicated. 10. Implement neutropenic guidelines as needed. Outcome: Progressing Note: Currently being treated for UTI. Will continue to monitor for new signs and symptoms. Problem: Knowledge Deficit Goal: Patient/patient outbound telemarketing representative demonstrates understanding of disease process, treatment [...] supplement as ordered 13. Collaborate with clinical home care assistant 14. Include patient/ patient's outbound telemarketing representative in decisions related to nutrition Outcome: Progressing Note: Pt nutritional needs monitored and addressed as ordered by physician. Dietary recommendationsappreciated as ordered. Problem: Moderate - High Risk Fall Score Description: Conrad Fall Score of =/> 25 or indicated by [facility] Assessment Goal: Patient should be free from fall Description: Interventions: 1. [place] to environment 2. Hourly rounds addressing the [...] non-skid footwear 11. Teach patient and patient outbound telemarketing representative to maintain environment for safety and [...] (cane, walker) within reach 19. Request patient outbound telemarketing representative bring adaptive equipment/mobility aids from home or obtain and provide as needed 20. Consult pharmacy regarding effects of med's affecting mobility, cognition, and alternatives 21. Obtain physician order for PT if risk factors associated with mobility are present 22. Obtain physician order for OT as appropriate 23. Utilize diversional activities 24. Educate patient and patient outbound telemarketing representative how to maintain a safe environment during visitationtimes (notify nurse prior to leaving bedside) 25. Consider appropriateness of medical or non-medical information officer 26. Set up voiding schedule as appropriate (every 2 hours) Outcome: Progressing Note: Fall risk assessment preformed and safety measures in place. Education given to family/patient. Will continue to monitor. [facility]08-22-2025 History and physical note* Edgardo Ye, - 05/16/2025 10:56 PM EDT Images from the original note were not included. Trauma Surgery History & Physical Examination /Consultation Note Patient: Mei Guardado Date of : 1940 Estimated time of injury: Unknown, last point of contact was morning of 05/15/25, found down around 16:00 today LOC: Yes Transport: EMS from [facility] Trauma level: Trauma Consult Work related: No History of Present Illness Mei Guardado is an 85 y.o. White or female with unknown past medical history, transferred from [facility] for trauma consult after being found unresponsive at home in her bathtub after a fall. Unknown time down. Last known contact with patient was the morning of 05/15/2025, when she was acting her normal baseline. At baseline, patient is A&O x4 and conversive. Workup at [facility] is notable for CT brain revealing skull fracture, multifocal subarachnoid hemorrhages within the bilateral temporal lobes and in the bilateral cerebellum. There was also an intraparenchymal hemorrhage within the left frontal lobe with surrounding edema. Additionally patient had an elevated lactate. Patient was given 2 g Rocephin, 1 g vancomycin, and 1 L of fluids at [facility]. Hemoglobin at that time was 13. Per [...] Travel Screening No screening recorded since 05/13/25 2217 Travel History Travel since 04/15/25 No documented [...] Av.7 C (99.9 F) Min: 37.7 C (99.9F) Max: 37.7 C (99.9 F) Admit Weight: There is no height or weight on file to calculate BMI. Last Weights: Wt Readings from Last 3 Encounters: No data found for Wt I/O's:No intake or output data in the 24 hours ending 05/16/25 2256 O2 Device: None (Room air) Last 24 hr Labs Recent Results (from the past 24 hours) [place] draw Collection Time: 05/16/25 10:44 PM Narrative The following orders were created for panel order [place] draw. Procedure Abnormality Status --------- ------ Michelle Top On Ice[[id number]] Please view results for these tests on the individual orders. Cultures: Microbiology Results (last 21 days) Procedure Component Value - Date/Time Urine Culture Urine, Indwelling Catheter [[id number]] Lab Status: No result Specimen: Urine, Indwelling [...] 0 0 0 0 CAGE-AID [facility] 1994 Have you felt the [...] with unknown past medical history, transferred from [facility] for trauma consult after being found unresponsive at home in her bathtub after a fall. Unknown time down. Last known contact with patient was the morning of 05/15/2025, when she was acting her normal baseline. Injuries/Traumatic issues: Traumatic fall -TraumaGram - imaging obtained from [facility], results reviewed - CT chest: Bibasilar atelectasis/pneumonitis [...] IV fluids - PT OT eval - SOFT WATER MECHANIC eval - monitor vitals - cardiac monitoring [...] Lactic acidosis, leukocytosis - lactate 6.2 at [facility] - WBC 20.2 - possible sepsis given leukocytosis, tachycardia, and lactic acidosis, however no identifiable source of infection at this time. Possible aspiration given CT chest results - daily labs - trend lactate - IV fluids - started on Rocephin and vancomycin 5. Elevated creatinine kinase - 354 at [facility] - repeat CK, trend for possible rhabdo [...] Additional Notes/Findings: 85-year-old female transferred from an [facility] hospital after having been found [...] to be admitted to the neuro ICU [facility] Work Phone: 1(424) 720-313008-22-2025 History and physical note* Edgardo Ye DO - 05/16/2025 10:56 PM EDT Images from the original note were not included. Trauma Surgery History & Physical Examination /Consultation Note Patient: Mei Guardado Date of : 1940 Estimated time of injury: Unknown, last point of contact was morning of 05/15/25, found down around 16:00 today LOC: Yes Transport: EMS from [place] Trauma level: Trauma Consult Work related: No History of Present Illness Mei Guardado is an 85 y.o. White or female with unknown past medical history, transferred from [facility] for trauma consult after being found unresponsive at home in her bathtub after a fall. Unknown time down. Last known contact with patient was the morning of 05/15/2025, when she was acting her normal baseline. At baseline, patient is A&O x4 and conversive. Workup at [facility] is notable for CT brain revealing skull fracture, multifocal subarachnoid hemorrhages within the bilateral temporal lobes and in the bilateral cerebellum. There was also an intraparenchymal hemorrhage within the left frontal lobe with surrounding edema. Additionally patient had an elevated lactate. Patient was given 2 g Rocephin, 1 g vancomycin, and 1 L of fluids at [facility]. Hemoglobin at that time was 13. Per [...] Av.7 C (99.9 F) Min: 37.7 C (99.9F) Max: 37.7 C (99.9 F) Admit Weight: There is no height or weight on file to calculate BMI. Last Weights: Wt Readings from Last 3 Encounters: No data found for Wt I/O's:No intake or output data in the 24 hours ending 05/16/25 2256 O2 Device: None (Room air) Last 24 hr Labs Recent Results (from the past 24 hours) [place] draw Collection Time: 05/16/25 10:44 PM Narrative The following orders were created for panel order [place] draw. Procedure Abnormality Status --------- ------ Michelle Top On Ice[[id number]] Please view results for these tests on the individual orders. Cultures: Microbiology Results (last 21 days) Procedure Component Value - Date/Time Urine Culture Urine, Indwelling Catheter [[id number]] Lab Status: No result Specimen: Urine, Indwelling [...] with unknown past medical history, transferred from [facility] for trauma consult after being found unresponsive at home in her bathtub after a fall. Unknown time down. Last known contact with patient was the morning of 05/15/2025, when she was acting her normal baseline. Injuries/Traumatic issues: Traumatic fall -TraumaGram - imaging obtained from [facility], results reviewed - CT chest: Bibasilar atelectasis/pneumonitis [...] IV fluids - PT OT eval - SOFT WATER MECHANIC eval - monitor vitals - cardiac monitoring [...] Lactic acidosis, leukocytosis - lactate 6.2 at [facility] - WBC 20.2 - possible sepsis given leukocytosis, tachycardia, and lactic acidosis, however no identifiable source of infection at this time. Possible aspiration given CT chest results - daily labs - trend lactate - IV fluids - started on Rocephin and vancomycin 5. Elevated creatinine kinase - 354 at [facility] - repeat CK, trend for possible rhabdo [...] to the neuro ICU [facility] Emergency department Triage note* Paula Johansen RN - 05/16/2025 10:22 PM EDT Pt presents to the ED from [facility] as a trauma consult. Pt was found [...] rodriges in place on arrival. Pts VSS. [facility]08-22-2025 Physician Emergency department Note* Jd Pires MD - 05/16/2025 10:22 PM EDT Images from the original note were not included. [facility] - EMERGENCY DEPARTMENT Pt Name: Mei [...] as of 05/16/25 2300 ICH (intracerebral hemorrhage) ([facility]) . ED Disposition None . Please note that portions of this note were completed with a voice recognition program. Efforts were made to edit the dictations but occasionally words are mis-transcribed. Gopal Clayton 05/16/252222 Jd Pires MD 05/17/251939 [facility]08-22-2025 Emergency department Note* Paula Johansen RN - 05/16/2025 10:22 PM EDT Pt presents to the ED from [facility] as a trauma consult. Pt was found [...] rodriges in place on arrival. Pts VSS. * Jd Pires MD - 05/16/2025 10:22 PM EDT Images from the original note were not included. [facility] - EMERGENCY DEPARTMENT Pt Name: Mei [...] as of 05/16/25 2300 ICH (intracerebral hemorrhage) ([facility]) . ED Disposition None . Please note that portions of this note were completed with a voice recognition program. Efforts were made to edit the dictations but occasionally words are mis-transcribed. Ozieltamienatalie Clayton 05/16/252222 Jd Pires MD 05/17/251939 * Grabiel Keys RN - 05/16/2025 10:19 PM EDT Trauma consult , fall in shower at home, found with laceration to head and posterior skull fracture. ground transport to [facility] Er accepted per Mei Francis 85 [...] 74, 16, 100% Step Daughter coming from [facility] Left at 2049 [facility]: 85 F [...] and posterior skull fracture. ground transport to [facility] Er accepted per Mei Francis 85 [...] 74, 16, 100% Step Daughter coming from [facility] Left at [facility]49 [facility]: 85 F Found at home in bathtub with head injury Unknown down time Lac to back of head Brain bleeds Alert to verbal stimuli A&O 4 before this VSS 153/70 104 sinus tach 26 96% 20g R forearm 20 g LAC 15 mins out documented in this [facility] Emergency department Note* Grabiel Keys RN - 05/16/2025 10:19 PM EDT Trauma consult , fall in shower at home, found with laceration to head and posterior skull fracture. ground transport to [facility] Er accepted per Mei Francis 85 [...] 74, 16, 100% Step Daughter coming from [facility] Left at 2050 [facility]: 85 F Found at home in bathtub with head injury Unknown down time Lac to back of head Brain bleeds Alert to verbal stimuli A&O 4 before this VSS 153/70 104 sinus tach 26 96% 20g R forearm 20 g LAC 15 mins out [facility]08-22-2025 Emergency department Note* Marci Noel RN - 05/16/2025 10:18 PM EDT Bed: 27 Expected date: Expected time: Means of arrival: Other EMS Transport ([facility]) Comments: Trauma consult , fall in shower at home, found with laceration to head and posterior skull fracture. ground transport to [facility] Er accepted per Dr Prieto Guardado, [...] 74, 16, 100% Step Daughter coming from [facility] Left at 2049 [facility]: 85 F Found at home in bathtub with head injury Unknown down time Lac to back of head Brain bleeds Alert to verbal stimuli A&O 4 before this VSS 153/70 104 sinus tach 26 96% 20g R forearm 20 g LAC 15 mins out [facility]06-24-2025 History of Present illness Narrative* ALIX Asher - 03/18/2025 8:30 AM EDT Subjective Patient ID: Mei Guardado is a [...] 30 MIN BEFORE FIRST FOOD/BEVERAGE/MEDICINE OF THE DAYWITH PLAIN WATER ONCE A WEEK 12 tablet [...] if it might be more effective for her.Continue nasal sprays as prescribed. Follow up in about 6 months (around 09/15/2025) for Medicare Wellness Visit. documented in this encounterAlvin J. Siteman Cancer [id number] History of Present illness Narrative* ALIX Asher - 01/06/2025 9:30 AM EDT Images from the original note [...] 30 MIN BEFORE FIRST FOOD/BEVERAGE/MEDICINE OF THE DAYWITH PLAIN WATER ONCE A WEEK 12 tablet [...] (around 03/08/2025) for Hypertension. documented in this encounterAlvin J. Siteman Cancer [id number] Telephone encounter Note* Telephone Encounter - SANJAY WADDELL - 09/16/2024 1:26 PM EST Patient notified [facility] [id number] Miscellaneous Notes* Telephone Encounter - SANJAY WADDELL - 09/16/2024 1:26 PM EST Patient notified * Telephone Encounter - ALIX Asher - 09/16/2024 8:00 AM EST Please let pt know that her recent labs showed her LDL (bad cholesterol) was elevated at 171. Similar to previous of 175. Her protein was mildly low. Otherwise labs looked good. Would just recommend she increase her protein intake in her diet. Limit fried foods, fast foods, fatty foods, and simple sugars. documented in this encounterAlvin J. Siteman Cancer [id number] Telephone encounter Note* Telephone Encounter - ALIX Asher - 09/16/2024 8:00 AM EST Please let pt know that her recent labs showed her LDL (bad cholesterol) was elevated at 171. Similar to previous of 175. Her protein was mildly low. Otherwise labs looked good. Would just recommend she increase her protein intake in her diet. Limit fried foods, fast foods, fatty foods, and simple sugars. [facility] [id number] History of Present illness Narrative* ALIX Asher - 09/12/2024 1:00 PM EST Images from the original note [...] by direct observation Three Word Registration: Banana, [place], Chair Clock Drawing: Normal Clock - 2 Three Word Recall: All 3 words correct - 3 Total Score (0-5 Points): 5 Pain Assessment Pain Score: 0 - No pain Advance Care Planning Do you have a living will?: Yes Do you have a medical power of criminal defense attorney?: Yes Current Outpatient Medications on File Prior to Visit Medication Sig Dispense Refill alendronate (Fosamax) 70 MG tablet TAKE 1 TAB 30 MIN BEFORE FIRST FOOD/BEVERAGE/MEDICINE OF THE DAYWITH PLAIN WATER ONCE A WEEK 12 tablet [...] INSTILL 1 DROP INTO AFFECTED EYE 4 TIMESDAILY 30 mL 1 No current facility-administered medications [...] All needed testing was ordered. Will continue withyearly Medicare Wellness exams. 2. Hypersomnia This is a chronic medical condition that is stable since last assessment. No changes in treatment are suggested at this time. 3. Obstructive sleep apnea syndrome This is a chronic medical condition that is stable since last assessment. No changes in treatment are suggested at this time. 4. Seizure ([facility]) No recent seizures. Not currently on any medication for seizures. Will continue to monitor. 5. Benign essential hypertension ([facility]) Patient's blood pressure is currently well controlled. Continue with current medications and I willcontinue to monitor. Goal BP remains less than 130/80. 6. Diverticulosis This is a chronic medical condition that is stable since last assessment. No changes in treatment are suggested at this time. 7. Cervical spondylosis This is a chronic medical condition that is stable since last assessment. No changes in treatment are suggested at this time. 8. Age-related osteoporosis without current pathological fracture ([facility]) This is a chronic medical condition that [...] unspecified type The patient is seeing a medical payment poster for this condition, treatment is deferred to that specialist. Encouraged routine follow up appointments. 13. ACP Patient willing to discuss ACP. Pt has Living Will and DPOA in place. Follow up in about 6 months (around 03/13/2025) for Hypertension. Buck LEON PA-C documented in this encounterAlvin J. Siteman Cancer [id number] History of Present illness Narrative* ALIX Asher - 09/09/2024 10:00 AM EST Images from the original note were [...] 30 MIN BEFORE FIRST FOOD/BEVERAGE/MEDICINE OF THE DAYWITH PLAIN WATER ONCE A WEEK 12 tablet [...] x-ray report and images, prior to patient's appointmenttoday. Her symptoms are all improving. Encouraged pt to continue ice to area as needed, 20 min on 20 min off, over her shirt, not directly on skin. Encouraged pt to take deep breaths periodically throughout the day. Symptoms should continue to gradually improve. Follow up as needed for this concern. Follow up for Medicare Wellness Visit. documented in this encounterAlvin J. Siteman Cancer [id number] History of Present illness Narrative* Dhara Rodriguez NP - 09/06/2024 9:05 AM EST HPI: Historian of HPI: patient Mei Guardado is a 84 y.o. female who presents today to the Urgent Care with the following complaints and denials due left rib pain which has been present for 3 day(s). Pt states she fell on top her bath tub from a sitting position on Monday and is now having left rib pain. Pt rates her pain a 3out of 10 today. But also depends on [...] identified. See telephone encounter. documented in this encounterAlvin J. Siteman Cancer [id number] History of Present illness Narrative* Neena Love NP - 09/04/2024 2:00 PM EST Images from the original note were not included. Subjective Patient ID: Mei Guardado is a 84 y.o. female who presents for sinus congestion and a sore throat. The pt presents today for an increased cough, congestion and a sore throat for the last 3 days, hasbeen going on for the last 1 week. Current Outpatient Medications on File Prior to Visit Medication Sig Dispense Refill alendronate (Fosamax) 70 MG tablet TAKE 1 TAB 30 MIN BEFORE FIRST FOOD/BEVERAGE/MEDICINE OF THE DAYWITH PLAIN WATER ONCE A WEEK 12 tablet [...] No follow-ups on file. documented in this encounterAlvin J. Siteman Cancer [id number] Instructions* Patient Instructions* Neena Love NP - 09/04/2024 2:00 PM EST Cefdinir started today. documented in this [facility]11-12-2024 History of Present illness Narrative* Jazzy Hutchins NP - 08/06/2024 9:30 AM EST Images from the original note were not included. Subjective Patient ID: eMi Guardado is a 84 y.o. female who [...] 4 weeks ago. The problem has been graduallyworsening since onset. There has been no fever. [...] 30 MIN BEFORE FIRST FOOD/BEVERAGE/MEDICINE OF THE DAYWITH PLAIN WATER ONCE A WEEK 12 tablet [...] (CMS/HCC) JEREMY (obstructive sleep apnea) Osteopenia Osteoporosis ([facility]) Past Surgical History: Procedure Laterality Date [...] No follow-ups on file. documented in this [facility]11-12-2024 Miscellaneous Notes* Addendum Note - Lynda Beckwith MA - 08/06/2024 9:30 AM ESTAddended by: LYNDA BECKWITH on: 08/06/2024 10:51 AM Modules accepted: Orders, Level of Service documented in this [facility]11-12-2024 Note* Addendum Note - Lynda Beckwith MA - 08/06/2024 9:30 AM ESTAddended by: LYNDA BECKWITH on: 08/06/2024 10:51 AM Modules accepted: Orders, Level of Service [facility] CenterXsbquxikwa15-00-3333 Note* Addendum Note - Lynda Beckwith MA - 08/06/2024 9:30 AM ESTAddended by: LYNDA BECKWITH on: 08/06/2024 10:51 AM Modules accepted: Orders, Level of Service [facility] CenterHkmlrtwfpg07-04-5830 History of Present illness Narrative* Onofre Zuleta, TAMI-EXCEL SPECIALIST - 06/17/2024 8:30 AM EDT Images from the original note [...] Next Visit: as scheduled documented in this encounterAlvin J. Siteman Cancer [id number] History of Present illness Narrative* TRACY Morales - 06/03/2024 9:20 AM EDT Images from the original note were not included. Follow up Diagnosis: Onycholysis due to pseudomonas infection Location: Left 4th finger nail plate Last visit: 05/14/2024 Symptoms: denies pain and drainage; looks about the same Status: worse since wearing nail english over the weekend Current treatment: Vinegar soaks [...] Next Visit: 2 weeks documented in this encounterAlvin J. Siteman Cancer CenterXamvicktkc34-97-9414 Telephone encounter Note* Telephone Encounter - TRACY Morales - 05/14/2024 10:43 AM EDT Patient seen today in office. Cipro sent in to take BID x 10 days. Please move follow up from one month to 2 weeks. Thanks! [facility] CenterEepccwpfwj94-53-2274 Miscellaneous Notes* Telephone Encounter - TRACY Morales - 05/14/2024 10:43 AM EDT Patient seen today in office. Cipro sent in to take BID x 10 days. Please move follow up from one month to 2 weeks. Thanks! documented in this encounterAlvin J. Siteman Cancer CenterSxegrfrjap94-05-7009 History of Present illness Narrative* TRACY Morales - 05/14/2024 10:05 AM EDT Images from the original note were not included. Follow up Diagnosis: Onycholysis due to pseudomonas infection Location: Left 4th finger nail plate Last visit: 3 months ago Symptoms: denies pain and drainage; seems to get better if pt doesn't wear nail english Status: worse since wearing nail english over the weekend Current treatment: Vinegar soaks [...] discontinue if side effects (heel pain) occurs. Followup in 1 month if no improvement. Next Visit: 1 month documented in this encounterAlvin J. Siteman Cancer [id number] History of Present illness Narrative* Onofre Zuleta, TACKING STITCH REMOVER-EXCEL SPECIALIST - 11/18/2024 9:35 AM EST Skin Check Location: Patient requests a skin [...] lesions that fail to resolve should be re- evaluated. Cryotherapy performed today; see procedure note Diagnosis: Actinic keratosis Indication: Precancerous Location: see skin exam Consent: Verbal consent was obtained and risks were discussed, including, but not limited to risks of scarring, darker or employee representative pigmentary changes, recurrence, incomplete removal and infection. [...] Next Visit: 1 year documented in this encounterAlvin J. Siteman Cancer [id number] History of Present illness Narrative* TRACY Morales - 11/18/2024 9:35 AM EST Skin Check Location: Patient requests a skin [...] lesions that fail to resolve should be re- evaluated. Cryotherapy performed today; see procedure note Diagnosis: Actinic keratosis Indication: Precancerous Location: see skin exam Consent: Verbal consent was obtained and risks were discussed, including, but not limited to risks of scarring, darker or employee representative pigmentary changes, recurrence, incomplete removal and infection. [...] Next Visit: 1 year documented in this encounterAlvin J. Siteman Cancer [id number] History of Present illness Narrative* ALIX Asher - 11/07/2023 11:30 AM EST Subjective Patient ID: Mei Guardado is a [...] 30 MIN BEFORE FIRST FOOD/BEVERAGE/MEDICINE OF THE DAYWITH PLAIN WATER ONCE A WEEK 12 tablet [...] rhinorrhea, sinus pressure, sinus pain, sneezing and voicechange. Negative for sore throat. Respiratory: Negative for [...] Wellness Visit in May. documented in this encounterAlvin J. Siteman Cancer [id number] Evaluation note* Encounter Date Diagnosis Assessment Notes Treatment Notes Treatment Clinical Notes Jun, Contact with and (anaya spected) exposure to other viral communicable diseases (ICD-10 [...] is performed too soon. It is recommended thateven if results are negative and you have been exposed to someone that has COVID that you follow current CDC recommendations. These can be found at CDC.GOV. Follow up with primary care provider if symptoms persist or do not improve Jun,Other Additional time spent conducting pre-visit phone call, screening for symptoms, instructions on social distancing, application and removal of PPE, and cleaning of examination room, equipment and supplies was preformed. Patient education given for testing methodology and results. Patient care instructions given in writting by [facility] Care At Home document. [facility] Other Evaluation note* Diagnosis Acute recurrent frontal [...] to pollen documented in this encounter [facility] noteNo assessment information availableMartins Ferry Hospital Work Phone: Evaluation note* Diagnosis ICH (intracerebral hemorrhage) (CMS-HCC)- Primary Intracerebral hemorrhage ICH (intracerebral hemorrhage) (CMS-HCC) Intracerebral hemorrhage Fall at home, initial encounter Closed fracture of right side of base of skull (CMS-HCC) Primary hypertension Unspecified essential hypertension Traumatic rhabdomyolysis [facility] Diagnosis Hypercholesterolemia- Primary Pure hypercholesterolemia 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 of 6 hours to 24 hours, unspecified laterality, sequela- Primary Closed fracture of right side of base of skull, sequela Acute seasonal allergic rhinitis due to pollen Fall, sequela Need for influenza vaccination Need for prophylactic vaccination and inoculation against influenza Decreased appetite Anorexia Benign essential hypertension Essential hypertension, benign documented in this encounter [facility]* Diagnosis Hypercholesterolemia- Primary Pure hypercholesterolemia Fall at home, initial encounter- Primary 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, unspecified laterality, subsequent encounter Closed fracture of right side of base of skull with routine healing, subsequent encounter Benign essential hypertension Essential hypertension, benign documented in this encounter [facility]* Diagnosis Hypercholesterolemia- Primary Pure hypercholesterolemia Fall at home, initial encounter- Primary 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, unspecified laterality, subsequent encounter Closed fracture of right side of base of skull with routine healing, subsequent encounter Benign essential hypertension Essential hypertension, benign Chronic sinusitis, unspecified location- Primary Intracranial hemorrhage (HCC) Unspecified intracranial hemorrhage Acute non-recurrent sinusitis, unspecified location Cerebrospinal rhinorrhea Cerebrospinal fluid rhinorrhea documented in this encounter [facility] HealthcareHistory general Narrative - Reported* Type Description Date Medical History breast cancer Medical HistoryHTNSurgical HistorylumpectomySurgical Historyrotator cuff Hospitalization HistorySee past surgical hx [facility] Other Hospital Discharge instructionsNot on filedocumented in this encounterMer[facility] SystemReason for referral (narrative)No reason for referral information availableMemorial Health [facility] Work Phone: Summary Purpose Family History No Family History Records Found Relationship Condition Age at Onset Recorded Date/T ammy father Unknown motherDeceasedUnknown Advance Directives No Advanced Directives Records Found Advance Directive Response Recorded Date/ Time Advance Directives No March 12 9:38am Date ActivatedDate InactivatedComments05/16/2025 10:57 PM05/20/2025 6:16 PMDate ActivatedDate InactivatedComments05/16/2025 10:42 PM05/16/2025 10:57 PM Additional Source Comments INFORMATION SOURCE (unrecogn ized section and content) DATE CREATED AUTHOR 03/19/2022 [facility] DATE CREATED AUTHOR AUTHOR'S ORGANIZ ATION 09/17/2024 [facility] DATE CREATED AUTHOR AUTHOR'S ORGANIZ ATION 05/20/2025 [facility] DATE CREATED AUTHOR AUTHOR'S ORGANIZ ATION 05/23/2025 [facility] DATE CREATED AUTHOR AUTHOR'S ORGANIZ ATION 05/23/2025 [facility] DATE CREATED AUTHOR AUTHOR'S ORGANIZ ATION 07/26/2025 [facility] EPIC REASON FOR VISIT (unrecogniz ed section and content) ReasonCommentsFollow-upReasonCommentsMedicare Annual Wellness Visit Subsequent ReasonCommentsHypertensionReasonCommentsHead InjurySpecialtyDiagnoses / ProceduresReferred By ContactReferred To Contact Diagnoses ICH (intracerebral hemorrhage) ([facility]) [facility] - Emergency Department [address] [facility] [place] [address] Phone: tel: fax: Referral IDStatusReasonStart DateExpiration DateVisits RequestedVisits [id number] Care Teams (unrecognized sec tion and content) Team MemberRelationshipSpecialtyStart DateEnd Date Ochoa Medina MD [address] [facility] [address] [place] [address] PCP - GeneralFamily Medicine02/16/23 Ochoa Medina MD [address] [place] [address] [place] [address] PCP - [facility]02/16/23Team MemberRelationshipSpecialtyStart DateEnd Date Ochoa Medina MD [address] [place] [place] [address] PCP - GeneralFamily Medicine02/16/23 Ochoa Medina MD [address] [place] [address] PCP - [facility]02/16/23Team MemberRelationshipSpecialtyStart DateEnd Date Ochoa Medina MD [address] [place] [address] [facility] - [facility]02/16/23 Ochoa Medina MD [address] [place] [address] PCP - ACO [facility]01/24/24Team MemberRelationshipSpecialtyStart DateEnd Date Ochoa Medina MD [address] [place] [place] [address] PCP - Generalmily Medicine02/16/23 Ochoa Medina MD [address] [place] [place] [address] PCP - [facility]01/24/24Team MemberRelationshipSpecialtyStart DateEnd Date Ochoa Medina MD [address] [place] [address] [place] [address] PCP - Generalmily Medicine02/16/23 Ochoa Medina MD [address] [place] [place] [address] PCP - [facility]01/24/24Team MemberRelationshipSpecialtyStart DateEnd Date Ochoa Medina MD [address] [place] [address] [place] [address] [facility] - [facility]/23 Ochoa Medina MD [address] [place] [place] [address] PCP - [facility]01/24/24Team MemberRelationshipSpecialtyStart DateEnd Date Ochoa Medina MD [address] [place] [address] [place] [address] [facility] - [facility]02/16/23 Ochoa Medina MD [address] [place] [address] PCP - [facility]01/24/24Team MemberRelationshipSpecialtyStart DateEnd Date Ochoa Medina MD [address] [place] [address] [facility] - [facility]02/16/23 Ochoa Medina MD [address] [place] [address] PCP - [facility]01/24/24Team MemberRelationshipSpecialtyStart DateEnd Date Ochoa Medina MD [address] [place] [address] [facility] - [facility]02/16/23 Ochoa Medina MD [address] [place] [address] PCP - [facility]01/24/24Team MemberRelationshipSpecialtyStart DateEnd Date Ochoa Medina MD [address] [place] [place] [address] [facility] - [facility]02/16/23 Ochoa Medina MD [address] [place] [address] PCP - [facility]01/24/24Te MemberRelationshipSpecialtyStart DateEnd Date Ochoa Medina MD [address] [place] [place] [address] [facility] - [facility]02/16/23 Ochoa Medina MD [address] [place] [address] PCP - [facility]01/24/24Te MemberRelationshipSpecialtyStart DateEnd Date Ochoa Medina MD [address] [place] [address] [facility] - [facility]02/16/23 Ochoa Medina MD [address] [place] [address] PCP - [facility]01/24/24Team MemberRelationshipSpecialtyStart DateEnd Date Ochoa Medina MD [address] [place] [address] PCP - GeneralFamily Medicine02/16/23 Ochoa Medina MD [address] [place] [address] PCP - [facility]01/24/24Team MemberRelationshipSpecialtyStart DateEnd Date Ochoa Medina MD [address] [place] [address] [facility] - [facility]02/16/23 Ochoa Medina MD [address] [facility] [address] [place] [address] PCP - [facility]CO [facility]01/24/24 Team Status: Inactive Member Role Status Dates Sage Hall DO Attending Provider Active Sta rt: May 16, 2025 End: May 16, 2025Team MemberRelationshipSpecialtyStart DateEnd [place] [address] PCP - Generalmily Medicine05/17/25Team MemberRelationshipSpecialtyStart DateEnd Date Ochoa Medina MD [address] [place] [address] PCP - Generalmily Medicine02/16/23 Ochoa Medina MD [address] [place] [address] PCP - [facility]01/24/24Team MemberRelationshipSpecialtyStart DateEnd Date Ochoa Medina MD [address] [place] [address] PCP - Generalmi Medicine02/16/23 Ochoa Medina MD [address] [place] [address] [place] [address] PCP - [facility]01/24/24Team MemberRelationshipSpecialtyStart DateEnd Date Ochoa Medina MD [address] [place] [address] [facility] - [facility]02/16/23 Ochoa Medina MD [address] [place] [address] PCP - [facility]01/24/24Team MemberRelationshipSpecialtyStart DateEnd Date Ochoa Medina MD [address] [place] [address] [facility] - [facility]02/16/23 Ochoa Medina MD [address] [place] [address] PCP - [facility]01/24/24Team MemberRelationshipSpecialtyStart DateEnd Date Ochoa Medina MD [address] [place] [address] [facility] - [facility]02/16/23 Ochoa Medina MD [address] [place] [address] PCP - [facility]/ Ochoa Medina MD [address] [place] [address] PCP - [facility]01/24/24 Goals (unrecognized section and content) Goals may be documented in a n alternate section Scheduled Active and Recently Administ ered Medications (unrecognized section and content) Medication Order05/18//// acetaminophen (OFIRMEV) IVPB Premix 1,000 mg (COMPLETED) 1,000 mg, intravenous, at 400 mL/hr, Administer over 15 Minutes, Every 6 hours, First dose on 05/17/25 at 1715, For 24 hours * 0506 (New Bag - Provider: Emily Byrne, RN) * 0521 (Stop Bag - Provider: Emily Byrne, VERONICA) * 1043 (New Bag - Provider: Sofia Buckner, VERONICA) * 1058 (Stop Bag - Provider: Sofia Buckner, VERONICA) ampicillin-sulbactam (UNASYN) 3,000 mg in sodium chloride 0.9 % 100 mL IVPB W/ADAPTER 3,000 mg, intravenous, at 200 mL/hr, Administer over 30 Minutes, Every 6 hours, First dose on 05/17/25 at 1715, For 5 days, For Vial-2-Bag: Attach bag and vial to adapter - Use immediately after activating; dissolve drug prior to administration., Indication: Aspiration pneumonia * 0423 (New Bag - Provider: Emily Byrne, VERONICA) * 0453 (Stop Bag - Provider: Emily Byrne, VERONICA) * 1110 (New Bag - Provider: Sofia Buckner, VERONICA) * 1140 (Stop Bag - Provider: Sofia Buckner, VERONICA) * 1711 (New Bag - Provider: Mike Leon, VERONICA) * 1741 (Stop Bag - Provider: Mike Leon, RN) * 2224 (New Bag - Provider: Emily Byrne, VERONICA) * 2254 (Stop Bag - Provider: Emily Byrne, VERONICA) * 0455 (New Bag - Provider: Emily Byrne, VERONICA) * 0525 (Stop Bag - Provider: Emily Byrne, VERONICA) * 1128 (New Bag - Provider: Jude Tafoya RN) * 1158 (Stop Bag - Provider: Jude Tafoya RN) * 1737 (New Bag - Provider: Jude Tafoya RN) * 1807 (Stop Bag - Provider: Jude Tafoya RN) * 2300 (New Bag - Provider: Nilda Caraballo, RN) * 2330 (Stop Bag - Provider: Nilda Caraballo, RN) * 0519 (New Bag - Provider: Nilda Caraballo RN) * 0549 (Stop Bag - Provider: Nilda Caraballo RN) * 1123 (New Bag - Provider: Linda Valadez, RN) * 1153 (Stop Bag - Provider: Linda Valadez, RN) carvediloL (COREG) tablet 12.5 mg 12.5 mg, oral, 2 times daily, First dose on Mon05/19/25 at 0900, Give with meal or snack. Look-alike/sound-alike medication - verify indication for use. * 0827 (Given - Provider: Jude Tafoya RN) * 202 (Given - Provider: Nilda Caraballo RN) * 0831 (Given - Provider: Linda Valadez, VERONICA) enoxaparin (LOVENOX) syringe 30 mg 30 mg, subcutaneous, Every 12 hours, First dose on Mon05/18/25 at 1800, Look-alike/sound-alike medication - verify indication for use. * 1704 (Given - Provider: Mike Leon RN) * 0501 (Given - Provider: Emily Byrne, VERONICA) * 1734 (Given - Provider: Jude Tafoya RN) * 0519 (Given - Provider: Nilda Caraballo, VERONICA) levETIRAcetam (KEPPRA) IVPB 500 mg/100 mL in iso-osmotic sodium chloride (5 mg/mL premix)(Linked Group 1) 500 mg, intravenous, at 400 mL/hr, Administer over 15 Minutes, Every 12 hours scheduled, First doseon 05/17/25 at 0900, For 7 days, Keppra 500mg IV daily every 12 hours may change to PO when taking PO Look-alike/sound-alike medication - verify indication for use. * 0905 (New Bag - Provider: Sofia Buckner RN) * 0920 (Stop Bag - Provider: Sofia Buckner RN) * 2005 (See Alternative - Provider: Emily Byrne, VERONICA) * 826 (See Alternative - Provider: Jude Tafoya RN) * 2026 (See Alternative - Provider: Nilda Caraballo, RN) * 0831 (See Alternative - Provider: Linda Valadez, RN) levETIRAcetam (KEPPRA) tablet 500 mg(Linked Group 1) 500 mg, oral, Every 12 hours scheduled, First dose on 05/17/25 at 0900, For 7 days, When taking PO. if not able to take orally, give IV Look-alike/sound-alike medication - verify indication for use. * 0905 (See Alternative - Provider: Sofia Buckner RN) * 0920 (See Alternative - Provider: Sofia Buckner RN) * 2005 (Given - Provider: Emily Byrne RN) * 826 (Given - Provider: Jude Tafoya RN) * 2026 (Given - Provider: Nilda Caraballo, VERONICA) * 0831 (Given - Provider: Linda Valadez, VERONICA) loratadine (CLARITIN) tablet 10 mg 10 mg, oral, Daily, First dose on 05/19/25 at 1230, Look-alike/sound-alike medication - verify indication for use. * 1442 (Given - Provider: Jude Tafoya RN) * 0831 (Given - Provider: Linda Valadez, VERONICA) metoprolol tartrate (LOPRESSOR) tablet 50 mg (CANCELED) 50 mg, oral, 2 times daily, First dose on 05/18/25 at 0900, Hold for HR less than 70 Look-alike/sound-alike medication - verify indication for use. * 09 (Hold - Provider: Sofia Buckner RN - Reason: Order parameters not met) * 2005 (Given - Provider: Emily Byrne RN) pantoprazole (PROTONIX) injection 40 mg (CANCELED) 40 mg, intravenous, Every morning before breakfast, First dose on 05/17/25 at 0700, Look-alike/sound-alike medication - verify indication for use., Indication: Other (CARLOS), Please specify: Stress Ulcer Prophylaxis * 0631 (Given - Provider: Emily Costlow, RN) * 0604 (Given - Provider: Emily Byrne, RN) sennosides-docusate sodium (SENOKOT-S) 8.6-50 mg 2 tablet 2 tablet, oral, Nightly, First dose on Mon05/16/25 at 2255, Administer when tolerating diet. Hold medication for diarrhea. * 2005 (Given - Provider: Emily Byrne, RN) * 2199 (Canceled Entry - Provider: Emily Byrne RN) * 2026 (Given - Provider: Nilda Caraballo RN) sodium chloride 0.9 % flush 3 mL 3 mL, intravenous, Every 12 hours scheduled, First dose on Mon05/16/25 at 2255 * 09 (Given - Provider: Sofia Buckner RN) * 2005 (Given - Provider: Emily Byrne RN) * 826 (Given - Provider: Jude Tafoya, VERONICA) * 2026 (Given - Provider: Nilda Caraballo, VERONICA) * 08 (Given - Provider: Linda Valadez RN) Medication Order05/18//// acetaminophen (TYLENOL EXTRA STRENGTH) tablet 1,000 mg [...] infusion. Hold calcium replacement for phosphorus greater than5.5 mg/dL. VESICANT (RED) calcium gluconate IVPB 1000 mg/50 mL (20 mg/mL premix)(Linked Group 2) 1,000 mg, intravenous, at 50 mL/hr, Administer over 60 Minutes, As needed, for ionized calcium level 3.5 to 4.4 mg/dL, Starting on Mon05/16/25 at 2253, Recheck ionized calcium 6 hours after infusion.Hold calcium replacement for phosphorus greater than 5.5 [...] glucose less than 70 mg/dL and unconscious orNPO with IV access, Starting on Mon05/16/25 at [...] not available. If NPO, initiate IV 5% Dextr ose/Water at 100 mL/hr and contact prescriber for [...] slow IV push; maximum rate: 5 mg/minute. * 0906 (Given - Provider: Sofia Buckner RN) * 1852 (Given - Provider: Mike Leon RN) * 0450 (Given - Provider: Emily Byrne RN) hydrALAZINE (APRESOLINE) injection 10 mg 10 mg, intravenous, Every 6 hours PRN, high blood pressure, SBP>140 and HR <60 or if other agents ineffective., Starting on Mon05/19/25 at 0820, Look-alike/sound-alike medication - verify indication for use. Administer IV doses as a slow IV push; maximum rate: 5 mg/minute. * 1300 (Given - Provider: Linda Valadez RN) labetaloL (NORMODYNE,TRANDATE) injection 10 mg 10 mg, intravenous, Every 10 min PRN, high blood pressure, SBP >140 and HR >60. MAX of 3 doses per hour., Starting on Mon05/19/25 at 0820, Look-alike/sound-alike medication - verify indication for use. * 1012 (Given - Provider: Linda Valadez, RN) * 1132 (Given - Provider: Linda Valadez, RN) * 1213 (Given - Provider: Linda Valadez, VERONICA) labetaloL (NORMODYNE,TRANDATE) injection 20 mg (CANCELED) 20 mg, intravenous, Every 10 min PRN, high blood pressure, Starting on Mon05/16/25 at 2256, For systolic blood pressure greater than 140 mmHg, give first, hold for HR <60; can give up to 3 times per hour Look-alike/sound-alike medication - verify indication for use. * 0245 (Given - Provider: Emily Byrne, RN) * 0300 (Canceled Entry - Provider: Emily Byrne, RN) * 0400 (Given - Provider: Emily Byrne, RN) * 0500 (Canceled Entry - Provider: Emily Byrne, RN) * 0530 (Given - Provider: Emily Byrne, RN) * 0630 (Given - Provider: Emily Byrne, RN) * 1517 (Given - Provider: Mike Leon RN) * 1704 (Given - Provider: Mike Leon, RN) * 2105 (Given - Provider: Emily Byrne, RN) * 2220 (Given - Provider: Emily Byrne, RN) * 2230 (Given - Provider: Emily Byrne, RN) * 2315 (Given - Provider: Emily Byrne, RN) * 2325 (Given - Provider: Emily Byrne, RN) * 0005 (Given - Provider: Emily Byrne RN) * 0350 (Given - Provider: Emily Byrne RN) * 0452 (Canceled Entry - Provider: Emily Byrne RN) magnesium sulfate IVPB 2000 mg/50 mL in iso-osmotic water (40 mg/mL premix) (Linked Group 3) 2,000 mg, intravenous, at 25 mL/hr, Administer over 120 Minutes, As needed, for magnesium level 1.7to 1.9 mg/dL or ionized magnesium level 0.45 to 0.5 mmol/L, Starting on Mon05/16/25 at 2253, Use premix solution. Default to ionized magnesium level in cases where patient has both magnesium and ionized magnesium results. If administered, check ionized magnesium (or total magnesium if ionized magnesium unavailable) level 4 hours after infusion. magnesium sulfate IVPB 4000 mg/100 mL in iso-osmotic water (40 mg/mL premix) (Linked Group 3) 4,000 mg, intravenous, at 25 mL/hr, Administer over 240 Minutes, As needed, for magnesium level 1.6mg/mL or less, or ionized magnesium level 0.44 mmol/L or less, Starting on Mon05/16/25 at 2253, Usepremix solution. Default to ionized magnesium level in [...] replacement, Starting on Mon05/16/25 at 2253, Progress tooral potassium replacement when patient tolerating oral intake. [...] 1.2=40 mEq. Do not crush or chew. * 0603 (Given - Provider: Emily Byrne RN) potassium chloride (KAYCIEL) 20 mEq/15 mL solution 20-40 mEq(Linked Group 4) 20-40 mEq, oral, As needed, potassium replacement, Starting on Mon05/16/25 at 2253, Progress to oral potassium replacement when patient tolerating oral intake. If dose administered, recheck potassiumlevel 4 hours after last dose. For potassium [...] 1.2=30 mEq (22.5mL). For potassium level 3 mm ol/L or less and Serum Creatinine greater than 1.2=40 mEq (30mL). Must dilute before use - Mix in 3-8 ounces of water or juice before administration When administering in feeding tube, flush before and after per policy and monitor potassium levels * 0603 (See Alternative - Provider: Emily Byrne [...] less and Serum Creatinine 1.2 or less =50 mEq For potassium level 3.4 to 3.8 [...] phosphorus level 4 hours after infusion complete. Order Group 1: levETIRAcetam (KEPPRA) IVPB 500 mg/100 mL in iso-osmotic sodium chloride (5 mg/mL premix)Jump to med 500 mg, intravenous, at 400 mL/hr, Administer over 15 Minutes, Every 12 hours scheduled, First doseon Mon05/17/25 at 0900, For 7 days, Keppra [...] 2253, Recheck ionized calcium 6 hours after infusion.Hold calcium replacement for phosphorus greater than 5.5 [...] infusion. Hold calcium replacement for phosphorus greater than5.5 mg/dL. VESICANT (RED) Group 3: magnesium sulfate IVPB 2000 mg/50 mL in iso-osmotic water (40 mg/mL premix)Jump to med 2,000 mg, intravenous, at 25 mL/hr, Administer over 120 Minutes, As needed, for magnesium level 1.7to 1.9 mg/dL or ionized magnesium level 0.45 [...] 240 Minutes, As needed, for magnesium level 1.6mg/mL or less, or ionized magnesium level 0.44 mmol/L or less, Starting on Mon05/16/25 at 2253, Usepremix solution. Default to ionized magnesium level in cases where patient has both magnesium and ionized magnesium results. If administered, check ionized magnesium (or total magnesium if ionized magnesium unavailable) level 4 hours after infusion. Group 4: potassium chloride (K-TAB,KLOR-CON) CR tablet 20-40 mEqJump to med 20-40 mEq, oral, As needed, for potassium replacement, Starting on Mon05/16/25 at 2253, Progress tooral potassium replacement when patient tolerating oral intake. [...] tolerating oral intake. If dose administered, recheck potassiumlevel 4 hours after last dose. For potassium [...] 1.2=30 mEq (22.5mL). For potassium level 3 mm ol/L or less and Serum Creatinine greater than [...] less and Serum Creatinine 1.2 or less =50 mEq For potassium level 3.4 to 3.8 [...] BE BASED ON THE PRIMARY CLINICAL RECORDS. [employer] provides no warranty or guarantee of the accuracy or completeness of information in this document.
--- NOTE | 2025-08-19 14:05 | CT_ITS ---
The [address] [address] Patient Name: SON STROUD MRN: [id number] date: 1940 Sex: F Assigned Patient Location: LAB Current Patient Location: LAB Accession/Order Number: [id number] Exam Date: 08/19/2025 14:22 Report Date: 08/19/2025 15:48 At the request of: OCHOA MEDINA Procedure: CT head/brain wo/w con CT BRAIN WITHOUT /WITH CONTRAST: CLINICAL HISTORY: Cerebrospinal Rhinorrhea COMPARISON: CT head 05/29/2025 TECHNIQUE: Contiguous axial unenhanced images were obtained through the brain. This CT exam was performed using one or more following dose reduction techniques: Automated exposure control, adjustment of the mA and/or kV according to patient size, or use of iterative reconstruction technique. FINDINGS: There is no evidence of midline shift, intra or extra-axial fluid collection, hemorrhage or CT evidence of of acute large vascular distribution stroke. 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 Similar appearance of a nondisplaced right occipital bone fracture. Mild chronic small vessel changes. Remote stroke right posterior lateral cerebellum. No abnormal postcontrast enhancement identified. Visualized intraorbital contents appear unremarkable. No paranasal sinus air-fluid levels identified. No definite discontinuity involving the anterior cranial fossa within the constraints of a CT head examination. The surrounding soft tissues are normal. CT/CT head/brain wo/w con IMPRESSION: Posttraumatic changes including right occipital bone skull fracture, nondisplaced and left inferior frontal encephalomalacia related to contusion injury. No abnormal postcontrast enhancement identified. No definite paranasal sinus air-fluid levels identified in this examination or definite defect through the intracranial fossa floor. If warranted, and the rhinorrhea tests positive for beta 2 transferrin, consider thin section CT facial bones with 0.6 mm reconstructions to evaluate for possible defect through the anterior cranial fossa/greater wing sphenoid. Impression dictated by: Elvin Jane M.D. 08/19/2025 3:48 PM Dictation Location: [place] [address] Electronically authenticated by: [id number] Date: 08/19/2025 15:48
[2025-08-19 14:09] LABS: Estimated GFR (African America >60 (>=60 mL/min/1.73m^2); Estimated GFR (Non-African Ame 59 (>=60 mL/min/1.73m^2)
== END 2025-08-19 13:38 | disposition home or self-care (01) ==
LOC: LAB 13:42
PROVIDERS: Pathology Anatomic Pathology & Clinical Pathology; PCP Family Medicine; Visit Provider Family Medicine
DX: Z01.818 Encounter for other preprocedural examination (principal); G96.01 Cranial cerebrospinal fluid leak, spontaneous
CPT/HCPCS: 36415; 70470; 82565; Q9967

== ENCOUNTER 2025-09-22 09:05 | Emergency (ER) | payer MEDICARE, OTHER, SELFPAY ==
--- OUTSIDE RECORDS SUMMARY | 2025-09-12 11:00 | XMS_ITS | Encounter Summary ---
Author Organization [facility] Healthcare Address [address] [place] [address] Care Team Providers Care Medical Reimbursement Manager Name Role Phone Helen Alicea MD Primary Care Provider [phone] Helen Alicea MD Unavailable Reason for Referral * Imaging (Stat) - AuthorizedSpecialtyDiagnoses / ProceduresReferred By Contact Referred To [facility] Diagnoses CSF leak Contusion of brain with loss of consciousness of 30 minutes or less, initial encounter ([facility] Procedures MR brain w and wo contrast routine Yovani Anderson MD [address] [facility] [address] [place] [address] Phone: tel: fax: [place] [facility] [address] [place] [address] Phone: tel: fax: Referral IDStatusReasonStart DateExpiration DateVisits RequestedVisits [id number]/19/20256/ Encounter Details DateTypeDepartmentCare Team (Latest Contact Info)Chlvjbvvzvw82/19/2025 11:00 AM ESTOffice Visit [facility] [address] [facility] [address] [place] [phone] Yovani Anderson MD [address] [facility] [address] [place] [address] [id number] CSF leak (Primary Dx); Non-seasonal allergic rhinitis due to other allergic trigger; Contusion of brain with loss of consciousness of 30 minutes or less, initial encounter ([facility] [place]) Social History Tobacco UseTypesPacks/DayYears UsedDateSmoking Tobacco: NeverSmokeless Tobacco: NeverAlcohol UseStandard Drinks/WeekCommentsNever0 (1 standard drink = 0.6 oz pure alcohol)PHQ-2AnswerDate RecordedPatient Health Questionnaire-2 Score0 08/25/2025CommentsUnknownSex and Gender InformationValueDate RecordedSex Assigned at BirthNot on fileLegal TgjRkrkqf37/15/2023 7:24 PM EDTGender Identity Not on fileSexual OrientationNot on filedocumented as of this encounter Last Filed Vital Signs Vital SignReadingTime TakenCommentsBlood Efpgmbba794/7809/12/2025 11:10 AM EST Pulse--Temperature--Respiratory Rate--Oxygen Saturation--Inhaled Oxygen Concentration--Hfnrib94.5 kg (140 lb)09/12/2025 11:10 AM WBCNaeoel179.4 cm (5' 5.5 )09/12/2025 11:10 AM ESTBody Mass Index22.9409/12/2025 11:10 AM EST documented in this encounter Progress Notes * Yovani Anderson MD - 09/12/2025 11:00 AM EST Images from the original note were not included. Subjective Mei Guardado is a 85 y.o. female who presents for a new patient consultation referred by Dr. Alicea for cerebral drainage. Patient states she had a fall in April. History of Present Illness The patient is an 85-year-old female who presents for evaluation of a suspected cerebrospinal fluid(CSF) leak. In April 2025, she experienced a fall where she lost consciousness after falling backwards on a hard floor. She was found unconscious at home approximately 6 hours later and was hospitalized. She was informed of a skull fracture and brain bleed. Since the fall, she has been experiencing recurrent s inus infections, typically in the fall or spring, which she initially attributed to her current symptoms. Despite treatment with four different antibiotics prescribed by Dr. Barker, her symptoms persisted. Dr. Barker expressed concern about a potential CSF leak and advised against further antibiotic use. She reports a severe cough that initially presented as a head cold before progressing to a chest cold. During her wellness exam, she was referred to a neurologist. Omok-gzl-dmafswm Vicks 44 with honey provided some relief for her cough but caused bowel disturbances. She continues to experience clear nasal drainage and frequent sniffing. She does not recall any previous head trauma besides the fall in April 2025. She reports visual disturbances in her left eye, particularly in the central vision, and has soughtcare from a retina specialist, Dr. Ibanez, following her fall. She has a history of dry macular degeneration and has received injections in the past. She also reports balance issues, lightheadedness,and occasional dizziness, particularly when standing up quickly after reading or watching TV. She has adjusted her behavior to stand up slowly to mitigate these symptoms. She has discontinued drivingat night due to these symptoms. She lives alone and has lost weight since her fall. She underwent balance therapy at the [facility] and continues to walk for exercise. She reports no memory issues. SOCIAL HISTORY: Marital Status: Occupations: Worked 50 years at a [email or web address] Hobbies: Visits nursing homes MEDICATIONS CURRENT MEDS: Claritin PREVIOUS MEDS: Vicks 44 with honey Oral Reason for Discontinuation: Messed up bowels Antibiotics Reason for Discontinuation: Doctor did not want to prescribe stronger antibiotics Review of Systems Constitutional: Negative for chills, diaphoresis, fatigue and fever. HENT: Negative for ear pain, tinnitus and trouble swallowing. Eyes: Negative for photophobia and visual disturbance. Respiratory: Negative for cough and shortness of breath. Cardiovascular: Negative for palpitations and leg swelling. Gastrointestinal: Negative for abdominal pain and nausea. Genitourinary: Negative for difficulty urinating and urgency. Musculoskeletal: Negative for arthralgias, back pain, myalgias, neck pain and neck stiffness. Neurological: Negative for tremors, weakness, light-headedness and numbness. Psychiatric/Behavioral: Negative for agitation, confusion and suicidal ideas. Objective Blood pressure 132/78, height 5' 5.5 , weight 140 lb. Physical Exam Cranial Nerve Examination CN II: Visual acuity diminished in the left eye. CN XI: 5/5 head turn and 5/5 shoulder shrug bilaterally. Motor Examination Strength: Strength 5/5 in upper extremities. Neurological Exam Mental Status Awake, alert and oriented to person, place and time. Oriented to person, place and time. Recent andremote memory are intact. Speech is normal. Language is fluent with no aphasia. Attention and concentration are normal. Cranial Nerves CN II: Visual acuity is normal. Visual shelley full to confrontation. CN III, IV, : Extraocular movements intact bilaterally. Normal lids and orbits bilaterally. Pupils equal round and reactive to light bilaterally. CN V: Facial sensation is normal. CN VII: Full and symmetric facial movement. CN VIII: Hearing is normal. CN XII: Tongue midline without atrophy or fasciculations. Motor Normal muscle bulk throughout. Normal muscle tone. Right Left Wrist flexion 5 5 Wrist extension 5 5 Right Left Deltoid 5 5 Biceps 5 5 Triceps 5 5 Wrist flexor 5 5 Wrist extensor 5 5 Glutei 5 5 Iliopsoas 5 5 Quadriceps 5 5 Gastrocnemius 5 5 Anterior tibialis 5 5 Posterior tibialis 5 5 Sensory Light touch is normal in upper and lower extremities. Pinprick is normal in upper and lower extremities. Vibration is normal in upper and lower extremities. Reflexes Right Left Brachioradialis 2+ 2+ Biceps 2+ 2+ Patellar 2+ 2+ Achilles 2+ 2+ Right Plantar: downgoing Left Plantar: downgoing Right pathological reflexes: Natalie's absent. Ankle clonus absent. Left pathological reflexes: Natalie's absent. Ankle clonus absent. Coordination Txszua-ms-ldyo, rapid alternating movements and gqmk-zm-iyzz normal bilaterally without dysmetria. Gait Normal casual, toe, heel and tandem gait. Romberg is absent. Physical Exam Eyes: General: Lids are normal. Extraocular Movements: Extraocular movements intact. Pupils: Pupils are equal, round, and reactive to light. Neurological: Coordination: Coordination is intact. Romberg sign negative. Deep Tendon Reflexes: Reflex Scores: Bicep reflexes are 2+ on the right side and 2+ on the left side. Brachioradialis reflexes are 2+ on the right side and 2+ on the left side. Patellar reflexes are 2+ on the right side and 2+ on the left side. Achilles reflexes are 2+ on the right side and 2+ on the left side. Psychiatric: Speech: Speech normal. Results CT head/brain 08/19/25-Posttraumatic changes including right occipital bone skull fracture, nondisplaced and left inferior frontal encephalomalacia related to contusion injury. No abnormal postcontrast enhancement identified. No definite paranasal sinus air-fluid levels identified in this examination or definite defect through the intracranial fossa floor. If warranted, and the rhinorrhea test positive for beta 2 transferrin, consider thin section CT facial bones with 0.6 mm reconstructions to evaluate for possible defect through the anterior cranial fossa/greater wing sphenoid. 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 Assessment & Plan 1. Suspected cerebrospinal fluid (CSF) leak. The patient's symptoms, including clear nasal drainage, lightheadedness, balance issues, and visualdisturbances, suggest a possible CSF leak. The CAT scan showed damage in two areas of the brain, likely from a fall in April. The visual disturbances are likely due to irritation of the optic nerve from the fall. The autonomic nervous system is still healing, causing lightheadedness upon standing quickly. 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 The sinuses did not appear severely affected on the last scan, but the patient continues to experience significant drainage. There is no evidence of cerebrovascular disease. An MRI of the brain will be ordered to confirm the diagnosis and rule out any fractures. Singulair will be prescribed to manage the nasal drainage. The patient is advised to maintain adequate hydration, consuming approximately 70 ounces of water daily. If the MRI does not reveal any fractures but the patient continues to experience leakage, a beta-2 transferrin test will be considered to confirm the presence of a CSF leak. 2. I will obtain an MRI of the brain to assess for an intracranial process which may be contributing to the patient's symptoms including a spinal fluid leak 3. Also consider testing for CSF protein in nasal collections over 24 hours. This clinical note was created utilizing [employer] documentation system. All information has beenthoroughly reviewed, corrected as necessary, and authenticated by the provider to ensure accuracy and completeness. On occasion, [employer] ambient documentation system erroneously drops words or replaces aspoken word with a similar sounding word. Please notify with any questions or concerns regarding this clinical note. documented in this encounter Plan of Treatment DateTypeDepartmentCare Team (Latest Contact Info)Kohgtphfgue86/24/2026 9:30 AM ESTOffice Visit [facility] [place] [facility] [address] [place] [address] Toyin Zuleta, LAMINATED PLASTICS ASSEMBLER AND GLUER-COMMERCIAL COLLECTIONS SPECIALIST [address] [place] [address] NameTypePriorityAssociated DiagnosesOrder ScheduleMR brain w and wo contrast routineImagingSTAT CSF leak Contusion of brain with loss of consciousness of 30 minutes or less, initial encounter ([facility]) Expected: 09/12/2025, Expires: 09/12/2026documented as of this encounter Visit Diagnoses Diagnosis CSF leak- Primary Other specified disorder of nervous system Non-seasonal allergic rhinitis due to other allergic trigger Contusion of brain with loss of consciousness of 30 minutes or less, initial encounter ([facility]) documented in this encounter Additional Health Concerns AssessmentNoted TimePHQ-9 Depression Total Score: 8:00 AM EDT documented as of this encounter Care Teams Team MemberRelationshipSpecialtyStart DateEnd Date Helen Alicea MD [address] [place] [address] PCP - GeneralFamily Medicine02/16/23 Helen Alicea MD [address] [place] [address] PCP - ACO [facility]01/24/24documented as of this encounter
[2025-09-22 09:13] VITALS: BP 126/66; PULSE 76; TEMP 36.4; O2SAT 98; BMI 22.5
--- NOTE | 2025-09-22 09:20 | XR_ITS ---
The [address] [address] Patient Name: SON STROUD MRN: [id number] date: 1940 Sex: F Assigned Patient Location: ER Current Patient Location: ED.MAIN Accession/Order Number: [id number] Exam Date: 09/22/2025 09:43 Report Date: 09/22/2025 10:03 At the request of: SRIRAM QUINTANA MD Procedure: XR foot LT min 3V LEFT FOOT - 3 views CLINICAL DATA: Patient fell yesterday and has bruising and pain at the lateral foot COMPARISON: None AP, lateral and oblique views were obtained. There is an oblique fracture extending from the medial mid shaft of the fifth metatarsal to the lateral neck. There is slight overriding of fracture fragments though no angulation. The remaining bony structures are intact. No dislocation is seen. There is minor dorsal soft tissue swelling XR/XR foot LT min 3V IMPRESSION: FIFTH METATARSAL FRACTURE Impression dictated by: Tonia Bah M.D. 09/22/2025 10:03 AM Dictation Location: [employer] Electronically authenticated by: [id number] Y Date: 09/22/2025 10:03
--- NOTE | 2025-09-22 09:25 | ED.GENADUL1 ---
HPI HPI - General Adult General Chief complaint: Extremity Injury, Lower Stated complaint: FALL - LOWER EXTREMITY PAIN Time Seen by Provider: 09/22/25 09:12 Source: patient Mode of arrival: walk-in Limitations: no limitations History of Present Illness HPI narrative: 85-year-old female presented for injury to her left foot. She had fallen last night and sustained an abrasion to the medial aspect. She is not sure when her last tetanus shot was. She points diffusely to the dorsum of her foot to indicate where the pain is. No pain in the ankle. Related Data Home Medications ?Medication ?Instructions ?Recorded ?Confirmed metoprolol tartrate 50 mg tablet 50 mg PO Q12H 05/16/25 09/22/25 montelukast 10 mg tablet 10 mg PO .qhs 09/22/25 09/22/25 Allergies Allergy/AdvReac Type Severity Reaction Status Date / Time No Known Drug Allergies Allergy Verified 09/22/25 09:09 Opioid HPI Opioid Management Most Recent Opioid Data: Last Pain Scale 5 Today, 09:24 Ur Phencyclidine Scrn, (NEGATIVE) Negative 05/16/25, 17:55 Review of Systems ROS Narrative A ten point review of systems is negative except as noted above. PFSH PFSH Social History Little interest or pleasure in doing things: not at all Feeling down, depressed, or hopeless: not at all Exam Narrative Exam Narrative: Nurses note and vital signs reviewed General:The patient appears well and in no apparent distress.Patient is sitting upright on a chair Skin:Warm, dry, no pallor noted.There is no rash noted. Head:Normocephalic, atraumatic Eye: Normal conjunctiva, no drainage Ears, Nose, Mouth, and Throat: oral mucosa is moist. Nares patent. Cardiovascular:Regular Rate and Rhythm, lungs are clear to auscultation, no wheezing, rales or rhonchi Back:non-tender GI: Nontender Musculoskeletal: Just diffuse tenderness in her left foot. There is a healing abrasion at the medial aspect. Ankle is nontender. Neurological: Awake and alert and oriented Psychiatric:Cooperative Constitutional Vital Signs, click to edit/add: Last Vital Signs Temp 97.6 F 09/22/25 09:13 Pulse 76 09/22/25 09:13 Resp 16 09/22/25 09:13 BP 126/66 09/22/25 09:13 Pulse Ox 98 12/29/25 09:13 O2 Del Method Room Air 09/22/25 09:13 Course Vital Signs Vital signs: Vital Signs Temperature 97.6 F 09/22/25 09:13 Pulse Rate 76 09/22/25 09:13 Respiratory Rate 16 09/22/25 09:13 Blood Pressure 126/66 09/22/25 09:13 Pulse Oximetry 98 09/22/25 09:13 Oxygen Delivery Method Room Air 09/22/25 09:13 Temperature 97.6 F 09/22/25 09:13 Pulse Rate 76 09/22/25 09:13 Respiratory Rate 16 09/22/25 09:13 Blood Pressure 126/66 09/22/25 09:13 Pulse Oximetry 98 09/22/25 09:13 Oxygen Delivery Method Room Air 09/22/25 09:13 Medical Decision Making MDM Narrative Medical decision making narrative: Fifth metatarsal fracture is identified. Walking boot applied, she is able to ambulate. Application checked by me and found to be appropriate, she is neurovascularly intact. CT scan negative. She is referred to podiatry for appropriate follow-up and the possible need for surgery was discussed with her. Tetanus status is updated. Differential Diagnosis Differential Diagnosis: Sprain, fracture Imaging Data Foot x-ray: Radiologist's impression: ITS Impressions Foot X-Ray 09/22/25 09:20 IMPRESSION: FIFTH METATARSAL FRACTURE Impression dictated by: Tonia Bah M.D. 09/22/2025 10:03 AM Dictation Location: [email or web address] Electronically authenticated by: [id number] Y Date: 09/22/2025 10:[address] 09/22/25 10:16 IMPRESSION: NO ACUTE INTRACRANIAL ABNORMALITY. Impression dictated by: Elvin Jane M.D. 09/22/2025 10:56 AM Dictation Location: [facility] Electronically authenticated by: [id number] Y Date: 09/22/2025 10:56 Discharge Plan Discharge Chief Complaint: Extremity Injury, Lower Clinical Impression: Metatarsal fracture Patient Disposition: Home, Self-Care Time of Disposition Decision: 10:28 Condition: Good Mode of Transportation: Private Vehicle Prescriptions / Home Meds: No Action montelukast 10 mg tablet 10 mg PO .qhs metoprolol tartrate 50 mg tablet 50 mg PO Q12H Print Language: Slovenian Instructions: Foot Fracture in Adults (ED) Referrals: Lalito Hidalgo DPM [Physician, Podiatry] - As soon as possible OCHOA MEDINA [Primary Care Provider, Family Practice] - 1 week
--- OUTSIDE RECORDS SUMMARY | 2025-09-22 09:59 | XMS_ITS | Encounter Summary ---
Author Organization [facility] Address [address] [place] [address] Care Team Providers Care Jacquard Loom Carpet Weaver Name Role Phone Helen Alicea MD Primary Care Provider [phone] Helen Alicea MD Unavailable Encounter Details DateTypeDepartmentCare Team (Latest Contact Info)Rtdykhelrox82/19/2025Travel Social History Tobacco UseTypesPacks/DayYears UsedDateSmoking Tobacco: NeverSmokeless Tobacco: NeverAlcohol UseStandard Drinks/WeekCommentsNever0 (1 standard drink = 0.6 oz pure alcohol)PHQ-2AnswerDate RecordedPatient Health Questionnaire-2 Score0 08/25/2025CommentsUnknownSex and Gender InformationValueDate RecordedSex Assigned at BirthNot on fileLegal XblKcdjdu08/15/2023 7:24 PM EDTGender Identity Not on fileSexual OrientationNot on filedocumented as of this encounter Plan of Treatment DateTypeDepartmentCare Team (Latest Contact Info)Yovfzrfkffq16/24/2026 9:30 AM ESTOffice Visit [facility] [address] [place] [phone] Toyin Zuleta, CLOTHES DRIER ASSEMBLER-VOLUNTEER SERVICES SUPERVISOR [address] [place] [address] documented as of this encounter Visit Diagnoses Not on filedocumented in this encounter Additional Health Concerns AssessmentNoted TimePHQ-9 Depression Total Score: 8:00 AM EDT documented as of this encounter Care Teams Team MemberRelationshipSpecialtyStart DateEnd Date Helen Alicea MD [address] [facility] [address] [place] [address] PCP - GeneralFamily Medicine02/16/23 Helen Alicea MD [address] [facility] [address] [place] [address] PCP - ACO [facility]01/24/24documented as of this encounter
--- OUTSIDE RECORDS SUMMARY | 2025-09-22 09:59 | XMS_ITS | Clinical Summary ---
Author Organization [facility] Address [address] [place] [address] Care Team Providers Care [place] Department Manager Name Role Phone Helen Alicea MD Primary Care Provider [phone] Allergies No known active allergies Social History Tobacco UseTypesPacks/DayYears UsedDateSmoking Tobacco: Never Assessed CommentsUnknownSex and Gender InformationValueDate RecordedSex Assigned at Not on fileLegal RucGwoijs67/23/2016 1:10 PM EDTGender IdentityNot on fileSexual OrientationNot on file Plan of Treatment Not on file Insurance Care Teams Team MemberRelationshipSpecialtyStart DateEnd Date Helen Alicea MD [address] [facility] [address] [place] [id number] [facility] - [facility]17[facility]16
--- OUTSIDE RECORDS SUMMARY | 2025-09-22 09:59 | XMS_ITS | Clinical Summary ---
Author Organization IngagePatient tem Address [id number] [address] [place] [address] Care Team Providers Care Osteopathic Neurologist Name Role Phone Helen Alicea MD Primary Care Provider [phone] Allergies No known active allergies Medications MedicationSigDispense [...] Problems ProblemNoted DateDiagnosed DateFall at home, initial dbscazifn06/26/2025losed fracture of right side of base of skull05/20/2025Primary /26/2025 Traumatic gsipnvivknmbcs48/26/2025ICH (intracerebral hemorrhage)05/16/2025 Immunizations ImmunizationAdministration DatesNext DueCovid-19, Mrna, Lnp-s, Pf,marci- sucrose,30 Mcg/0.3ml Fhgkzlvc64/19/2023Influenza High Dose Preservative Free IM 06/02/2024,06/04/2018,05/23/2017,08/01/2013Influenza Vaccine, Quadrivalent, Dglxzfltev87/05/2023Influenza, High-dose, Rjcdcvujjyrz07/27/2022,05/18/2021 Influenza, Injectable, Xpzyaiiivetl48/05/2016Pneumococcal Conjugate 13-Valent 09/08/2014Pneumococcal Gojycvdheplnap08/17/2018,04/10/2018RSV, recombinant, protein subunit RSVpreF, adjuvant reconstituted, 0.5 mL, PF09/08/2023Tdap 05/16/2025,06/06/2023Zoster Live09/08/2012,03/30/2011Zoster Vaccine Recombinant 09/09/2018,04/20/2018 Social History Tobacco UseTypesPacks/DayYears UsedDateSmoking Tobacco: NeverSmokeless Tobacco: Never Tobacco Cessation:Counseling Given: Not Answered Alcohol UseStandard Drinks/WeekCommentsNot Currently0 (1 standard drink = 0.6 oz pure alcohol)[facility] UtilitiesAnswerDate RecordedIn the past 12 months has the [employer], gas, oil, or water [employer] threatened to shut off services in your home?No05/19/2025UDIT-CAnswerDate RecordedQ1: How often do you have a drink containing alcohol?Patient bowsutjd92/25/2025Q2: How many drinks containing alcohol do you [...] as a part of a household?No05/19/2025hildcareAnswerDate Recorded ZwdhodsbxJulbsmh61/12/2019EmploymentAnswerDate RecordedEmploymentUnknown 03/06/2019Hunger ScreeningAnswerDate RecordedWithin the past 12 months we worried whether our food would run out before we got money to buy more.Never True05/19/2025Within the past 12 months the food we bought just didn't last and we didn't have money to get more.Never True05/19/2025CommentsNoSex and Gender InformationValueDate RecordedSex Assigned at BirthNot on fileLegal Sex Cdceyf9304/30/2015 12:07 PM EDTGender IdentityNot on fileSexual OrientationNot on file Last Filed Vital Signs Vital SignReadingTime TakenCommentsBlood Spfbrsae134/6808 1:44 PM EDT Fypii085805/20/2025 1:44 PM WLURkrnapknqww91.6 ??C (97.9 ??F)05/20/2025 7:16 AM EDTRespiratory Ugmi553505/20/2025 1:44 PM EDTOxygen Alscprcyyo76%05/20/2025 1:44 PM EDTInhaled Oxygen Concentration--Dhqgka76.3 kg (168 lb 3.4 oz)05/19/2025 1:00 AM XNWXwhglx998.6 cm (5' 6 )05/17/2025 1:20 AM EDTBody Mass Index27.1508 1:20 AM EDT Plan of Treatment Health MaintenanceDue DateLast DoneCommentsFall Risk Jputlqphv60/01/2003COVID-19 Vaccine ( season)/04/2024, 06/13/2023, 06/03/2022, Additional history existsInfluenza Vauoqax22/04/2024, 05/30/2023, 05/21/2022, Additional history existsDepression Peldafyhu40/ Tobacco Noibyiddp16DTaP,Tdap and Td Vaccines (3 - Td or Tdap) , 06/06/2023Zoster (Shingles) UjwujuiGuypjbhkw78/16/2018, 04/20/2018, 09/08/2012, Additional history existsRSV ( or age 60+ yrs) Pjqzktiya01/15/2023 Goals GoalPatient Goal TypeAssociated ProblemsRecent ProgressPatient-Stated?Author discharge Mable Osorio RN Note: Evaluation of progress towards goal: Safe discharge from hospital Medical Devices Not on file Insurance Advance Directives TypeDate RecordedPatient RepresentativeExplanationLiving Will05/29/2025 11:47 AM Durable Power of Attorney05/29/2025 6:55 AMDNR Physician Order05/29/2025 6:53 AM * DNR Comfort Care Arrest (DNR-CCA) [place] (Latest Code Status on File) Date ActivatedDate InactivatedComments05/16/2025 10:57 PM05/20/2025 6:16 PM * Full Code Date ActivatedDate InactivatedComments05/16/2025 10:42 PM05/16/2025 10:57 PM Care Teams Team MemberRelationshipSpecialtyStart DateEnd Date [place] [address] [place] [address] [facility] - [facility]/17/25
--- OUTSIDE RECORDS SUMMARY | 2025-09-22 09:59 | XMS_ITS | Clinical Summary ---
Author Organization [facility] Healthcare Address [address] [place] [address] Care Team Providers Care Financial Health Counselor Name Role Phone Helen Medina MD Primary Care Provider [phone] Helen Medina MD Unavailable Allergies Active AllergyReactionsCriticalityNoted GvchTngcidpeAamey50/24/2023 Other Reaction(s): Unknown Pollen WcoscmdEqycDnp72/25/2023 Medications MedicationSigDispense QuantityRefillsLast FilledStart DateEnd DateStatus hydrocortisone [...] tablet Take 2 tablets by mouth DailyActive montelukast (Singulair) 10 MG tablet Indications:Non-seasonal allergic rhinitis due to other allergic triggerTake 1 tablet (10 mg) by mouth at bedtime 30 tablet ctive amoxicillin (Amoxil) 500 MG capsule Indications:Cerebrospinal rhinorrheaTake 1 capsule (500 mg) by mouth Daily 30 capsule Discontinued(Other) azithromycin (Zithromax) 250 MG tablet Indications:Acute bronchitis, unspecified organismTake 2 tablets (500 mg) by mouth Daily for 1 day, THEN 1 tablet (250 mg) Daily for 4 days. 6 tablet Discontinued(Other) Active Problems ProblemNoted DateDiagnosed DateNon-seasonal allergic sejzrlkg64/19/2025ontusion of brain with loss of consciousness of 30 minutes or less09/12/2025Routine general medical examination at health care tzuvnheh66/01/2025 Assessment & Plan (08/25/2025 9:51 AM EST): Colonoscopy every 10 years or Cologuard every 3 years ages 50-75 Flu Vaccine yearly Pneumovax and Prevnar Mammo yearly for women and PSA yearly for men Labs/Screening yearly to rule out Diabetes, Chronic Kidney disease and liver disease Hepatitis Screen forat risk populations Shingles vaccine after65 if indicated Tetanus Vaccine every 10 years Lipids yearly under the age of 75 If Smoking history: one time CT scan of chest and Ultrasound of Aorta to screen for Anuerysm Chronic pbwagvybi36/30/2025 Assessment & Plan (07/24/2025 1:47 PM EDT): Antbx called in again Add Probiotic to help replenish the good bacteria that are destroyed by the Antibiotics Florastor Florajen Align or try Activia in Yogurt Probiotics reduce the risk of antibiotic induced diarrhea May need CT scan Cannot completely ruleout CSF leak Acute non-recurrent lgywhnpvq34/30/2025SF leak07/24/2025 Assessment & Plan (08/12/2025 3:02 PM EST): Has had a previous Skill Fracture Patient was on Antibitics with no relief Neurology appointment in September CT scan ordered D/W patient risk for Brain infection Assessment & Plan (07/24/2025 1:51 PM EDT): Referral made to Neurology Closed fracture of right side of base of skull05/20/2025 Assessment & Plan (08/25/2025 9:51 AM EST): Awaiting f/up with Dr. Anderson 2024 Assessment & Plan (06/30/2025 2:36 PM EDT): Stable from CT scan Calcium and Vitamin D Fall at home, initial baxfsghcj28/26/2025 Assessment & Plan (06/30/2025 2:35 PM EDT): Has been doing PT and no longer using walker Etiology uncertain as cause. No evidence of CVA, No NM and no Tumor Needs a life alert Consider camera Traumatic onwvpaxzpkqnab97/26/2025Intracranial xpjtmwydyq16/22/2025 Assessment & Plan (07/24/2025 1:48 PM EDT): [...] August Acute seasonal allergic rhinitis due to mzcxua3903/13/2023llergic conjunctivitis of both eyes03/13/2023enign essential wjvfedyrcdha97/19/2023 Assessment & Plan (06/30/2025 2:43 PM EDT): [...] them as prescribed. DASH diet handouts Cervical obxypczausm26/19/2804Djescjfctviolt09/19/2023Hypercholesterolemia 03/13/2023 Assessment & Plan (08/25/2025 9:50 AM EST): This is a chronic medical condition that is stable since last assessment. No changes in treatment are suggested at this time. Continue Current meds. Assessment & Plan (06/20/2023 9:34 AM EDT): Patient had elevated HDL and LDL Given age, risk for NM is elevated. Patient is past the usual age for treatment, but given no previous events options were given. Encouraged Exercise, low fat diet and Fish Oils. Should an event occur like an NM or CVA she would need to be on cholesterol medicine Evnqtvlljvo95/19/2023Macular degeneration of both eyes03/13/2023Obstructive sleep apnea jypxaqyf26/19/6848Vaghuaotitrr40/19/6034Zmvunak18/19/2023 Encounters DateTypeDepartmentCare PhozDirivevurwa81/19/2025 11:00 AM ESTOffice Visit [facility] [place] [facility] [address] [place] [address] Yovani Anderson MD CSF leak (Primary Dx); Non-seasonal allergic rhinitis due to other allergic trigger; Contusion of brain with loss of consciousness of 30 minutes or less, initial encounter ([facility])09/12/2025amboo flowsheet [facility] [address] [place] [address] Yovani Anderson MD 09/12/20252827Uuppih37/11/2025Results [facility]-Up [facility] [address] [place] [address] Helen Medina MD Lipid panel08/27/2025bstract [facility] [address] [place] [address] Helen Medina MD 08/25/2025 9:30 AM ESTOffice Visit [facility] [address] [place] [address] Helen Medina MD Routine general medical examination at [facility] facility (Primary Dx); Hypercholesterolemia; Medicare annual wellness visit, subsequent; Closed fracture of right side of base of skull with delayed healing, subsequent encounter; Estrogen ubaqpxpuwc02/01/2025Telephone [facility] Daleynce [address] [facility] [address] [place] [address] Helen Medina MD 08/25/2025amboo flowsheet [facility] [address] [facility] [address] [place] [address] Helen Medina MD 08/25/20253763Vichky10/26/2025Telephone [facility] [address] [facility] [address] [place] [address] Helen Medina MD 08/19/2025Results Follow-Up [facility] [address] [facility] [address] [place] [address] head w and wo IV batpwjvu91/25/2025linisync Result Encounter [facility]OM[facility] External Department Unsolicited Helen Medina MD 08/19/2025linisync Result Encounter [facility]OM[facility] External Department Unsolicited Provider, Generic External Data 08/12/2025 3:00 PM ESTOffice Visit [facility] [address] [facility] [address] [place] [address] Helen Medina MD Cerebrospinal rhinorrhea (Primary Dx)08/12/20258178Ejmmzk51/10/2025bstract [facility] Daleynce [address] [facility] [address] [place] [address] Helen Medina MD 07/24/2025 1:30 PM EDTOffice Visit [facility] Daleync [address] [facility] [address] [place] [address] Helen Medina MD Chronic sinusitis, unspecified location (Primary Dx); Intracranial hemorrhage (HCC); Acute non-recurrent sinusitis, unspecified location; Cerebrospinal wudynmzoje59/30/0461Mjgwux81/28/2025Abstract [facility] [address] [place] [address] Helen Medina MD 07/16/2025Patient Outreach [facility] [address] [place] [address] Claudia Burr, HEALTH SERVICES DIRECTOR 07/16/2025bstract [facility] [address] [place] [address] Helen Medina MD 07/14/2025Telephone [facility] [address] [place] [address] Helen Medina MD Med Ukksvy4907/11/2025Patient Outreach [facility] [address] [place] [address] Claudia Burr, HEALTH SERVICES DIRECTOR 07/04/2025Patient Outreach [facility] [address] [place] [place] [address] Claudia Burr, HEALTH SERVICES DIRECTOR 07/02/2025bstract [facility] [address] [place] [address] Helen Medina MD 07/01/2025bstract [facility] [address] [place] [address] Helen Medina MD 07/01/2025bstract [facility] [address] [place] [address] Helen Medina MD 06/30/2025 2:00 PM EDTOffice Visit [facility] [address] [place] [address] Helen Medina MD Fall at home, initial encounter (Primary Dx); 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, unspecified laterality, subsequent encounter; Closed fracture of right side of base of skull with routine healing, subsequent encounter; Benign essential ldvcosrsybgm46/06/2025amboo flowsheet [facility] [address] [facility] [address] [place] [address] Helen Medina MD 06/30/20254227Gvgzuy44/03/2025Patient Outreach [facility] [address] [address] Claudia Burr, HEALTH SERVICES DIRECTOR 06/24/2025bstract [facility] [address] [facility] [address] [place] [address] Helen Medina MD from Last 3 Months Immunizations ImmunizationAdministration DatesNext DueInfluenza, High Dose Seasonal, Preservative Free06/18/2025,06/02/2024,06/04/2018,05/23/2017,08/01/2013 Influenza, High-dose Seasonal, Quadrivalent, Preservative Free05/21/2022, 05/18/2021Influenza, Seasonal, Quadrivalent, Asawnhlouy88/05/2023Influenza, injectable, vdrmfwbjinvg56/05/2016Moderna Bivalent Booster Lsmgcdxlqll07/09/2022 Pfizer Purple Cap SARS-CoV-2 Egjkirciwvm28/19/2023Pneumococcal Conjugate PCV 13 09/08/2014Pneumococcal Polysaccharide PFCF9099,04/10/2018RSV, recombinant, protein subunit RSVpreF, adjuvant reconstitu, 120mcg/0.5mL, PF (Arexvy)09/08/20234356GCPJ-MKR-8 (COVID-19) vaccine, mRNA, spike protein, LNP, bivalent, PF06/03/2022Tdap05/16/2025,06/06/2023Zoster, Tdoomzbwvud78/16/2018, 04/20/2018Zoster, live09/08/2012,03/30/2011 Family History * Patient is adopted Medical HistoryRelationNameCommentsMelanomaNeg HxRelationNameStatusComments FatherDeceasedMotherDeceasedOther 1DeceasedspouseOther 2no children Social History Tobacco UseTypesPacks/DayYears UsedDateSmoking Tobacco: NeverSmokeless Tobacco: Never Tobacco Cessation:Counseling Given: Yes Alcohol UseStandard Drinks/WeekCommentsNever0 (1 standard drink = 0.6 oz pure alcohol)PHQ-2AnswerDate RecordedPatient Health Questionnaire-2 Lwazs85310/26/2024 CommentsUnknownSex and Gender InformationValueDate RecordedSex Assigned at BirthNot on fileLegal NhoEbaraq94/15/2023 7:24 PM EDTGender IdentityNot on fileSexual OrientationNot on file Last Filed Vital Signs Vital SignReadingTime TakenCommentsBlood Fqmsvahj503/7809/12/2025 11:10 AM EST Nappc047508/25/2025 9:33 AM ACWVjnqgpruhlb30.5 ??C (97.7 ??F)01/06/2025 9:37 AM EDTRespiratory Eqgq940806/18/2025 2:32 PM EDTOxygen Zduvjtqgve94%08/25/2025 9:33 AM ESTInhaled Oxygen Concentration--Kehoeg78.5 kg (140 lb)09/12/2025 11:10 AM ZLMMmqhfv832.4 cm (5' 5.5 )09/12/2025 11:10 AM ESTBody Mass Index22.9409/12/2025 11:10 AM EST Plan of Treatment DateTypeDepartmentCare Team (Latest Contact Info)Egpjgblxmzs51/24/2026 9:30 AM ESTOffice Visit [facility] [address] [place] [address] Toyin Zuleta APRN-SENIOR PUBLICATIONS SPECIALIST [address] [place] [address] Health MaintenanceDue DateLast DoneCommentsMedicare Annual Wellness (AWV) 6110/26/2024, 09/12/2024, 06/06/2023, Additional history exists Pneumococcal Vaccine: 65+ BgztgJbmvlayro81/17/2018, 04/10/2018, 09/08/2014 Influenza MyvcqobSnczpwnlf70/24/2025, 06/02/2024, 05/30/2023, Additional history exists Procedures Procedure NamePriorityDate/TimeAssociated DiagnosisCommentsLIPID PANELRoutine 08/27/2025 8:28 AM EST Hypercholesterolemia Medicare annual wellness visit, subsequent CT HEAD W AND WO IV FTGGGWBF85/25/2025 3:48 PM EST [facility] SXJPECVDKDKklzkrx58/25/2025 1:56 PM EST from Last 3 Months Results * (ABNORMAL) Lipid panel (08/27/2025 8:28 AM EST)ComponentValueRef RangeTest MethodAnalysis TimePerformed AtPathologist SignatureCHOLESTEROL, CZXVL943(H) <200 mg/dLQUESTHDL DALQZSOKGYC98> OR = 50 mg/iMOJYUPRUVUNVMIKKWFQ500<150 mg/dL QUESTLDL HEAXRKXSHVQ078(H)mg/dL (calc)QUESTComment: Reference range: <100 Desirable range <100 mg/dL for primary prevention; <70 mg/dL for patients with CHD or diabetic patients with > or = 2 CHD risk factors. LDL-C is now calculated using the Cameron-Keyon calculation, which is a validated novel method providing better accuracy than the Friedewald equation in the estimation of LDL-C. Cameron SS et al. SOL. 2013;310(19): 0425-1210 (http://education.YABUY.[employer]/faq/QMJ727) CHOL/HDLC RATIO3.1<5.0 (calc)QUESTNON HDL ASOJEADYMYP230(H)<130 mg/dL (calc) QUESTComment: For patients with diabetes plus 1 major ASCVD risk factor, treating to a non-HDL-C goal of <100 mg/dL (LDL-C of <70 mg/dL) is considered a therapeutic option. Specimen (Source)Anatomical Location / LateralityCollection Method / Volume Collection TimeReceived TimeBloodVenous blood specimen / Avlldir6508/27/2025 8:28 AM EST08/27/2025 3:32 PM EST Narrative QUEST - 08/27/2025 9:58 PM EST FASTING:YES FASTING: YES Resulting Agency Comment Performing Organization Information ?Site ID: QPT ?Name: [facility] ?Address: [address] [place] [address], [address] [place] [id number] ?Director: Ricardo Garcia MD Authorizing ProviderResult TypeResult StatusHelen Medina MDLAB BLOOD ORDERABLES Final ResultPerforming OrganizationAddressCity/State/ZIP CodePhone Number QUEST * CT head w and wo IV contrast (08/19/2025 3:48 PM EST)Anatomical Region LateralityModalityHead, NeckComputed TomographySpecimen (Source)Anatomical Location / LateralityCollection Method / VolumeCollection TimeReceived Time 08/19/2025 3:48 PM EST Narrative 08/19/2025 3:50 PM EST [facility] ?[address] ? [place], [place] [address] ? CT Scan Report ? Signed ? Patient: STROUD,MEI L ? MR#: [id number] ?? : 1940 ?Acct:[id number] ?? Age/Sex: 85 / F ?ADM Date: 08/19/25 ?? Loc: LAB ? Attending Dr: HELEN MEDINA ? Ordering Physician: HELEN MEDINA ?? Date of Service: 08/19/25 ?? Procedure(s): CT head/brain wo/w con ?? Accession Number(s): [id number] ? cc: HELEN MEDINA ? [facility] ? [address] ? [place] [address] ? Patient Name: ?? MEI STROUD ? MRN: [facility]:[id number] ? date: 1940 ?Sex: F ?? Assigned Patient Location: LAB ?? Current Patient Location: LAB ?? Accession/Order Number: [id number] ?? Exam Date: 08/19/2025 ??14:22 ?Report Date: 08/19/2025 ??15:48 ? At the request of: ?? HELEN ??ADAM ? Procedure: ??CT head/brain wo/w con ? CT BRAIN WITHOUT /WITH CONTRAST: ? CLINICAL HISTORY: Cerebrospinal Rhinorrhea ? COMPARISON: CT head 05/29/2025 ? TECHNIQUE: Contiguous axial unenhanced images were obtained through the brain. ?? This CT exam was performed using one or more following dose reduction ?? techniques: Automated exposure control, adjustment of the mA and/or kV ?? according to patient size, or use of iterative reconstruction technique. ? FINDINGS: There is no evidence of midline shift, intra or extra-axial fluid ?? collection, hemorrhage or CT evidence of of acute large vascular distribution ?? stroke. ??Encephalomalacia left inferior frontal lobe related to prior ?? hemorrhagic and nonhemorrhagic contusion. ??Similar appearance of a ?? nondisplaced right occipital bone fracture. ??Mild chronic small vessel ?? changes. ??Remote stroke right posterior lateral cerebellum. ??No abnormal ?? postcontrast enhancement identified. ? Visualized intraorbital contents appear unremarkable. ? No paranasal sinus air-fluid levels identified. ??No definite discontinuity ?? involving the anterior cranial fossa within the constraints of a CT head ?? examination. ? The surrounding soft tissues are normal. ? CT/CT head/brain wo/w con ?? IMPRESSION: ? Posttraumatic changes including right occipital bone skull fracture, ?? nondisplaced and left inferior frontal encephalomalacia related to contusion ?? injury. ? No abnormal postcontrast enhancement identified. ? No definite paranasal sinus air-fluid levels identified in this examination or ?? definite defect through the intracranial fossa floor. ??If warranted, and the ?? rhinorrhea tests positive for beta 2 transferrin, consider thin section CT ?? facial bones with 0.6 mm reconstructions to evaluate for possible defect ?? through the anterior cranial fossa/greater wing sphenoid. ? Impression dictated by: Elvin Jane M.D. ??08/19/2025 3:48 PM ? Dictation Location: [place] [address] ? Electronically authenticated by: [id number] ??Y ?? Date: 08/19/2025 ??15:48 ? Dictated By: ?Elvin Jane M.D. ? Signed By: ?08/19/25 1550 ? DD/ 1548 ? TD/TT: ? Lead Burner Supervisor: Procedure Note Radiology, Radiologist, MD - 08/19/[address] [place] [address] CT Scan Report Signed Patient: MEI STROUD LMR#: [id number] : 8Acct:[id number] Age/Sex: 85 / FADM Date: 08/19/25 Loc: LAB Attending Dr: HELEN MEDINA Ordering Physician: HELEN MEDINA Date of Service: 08/19/25 Procedure(s): CT head/brain wo/w con Accession Number(s): [id number] cc: HELEN MEDINA [place] [address] Patient Name: MEI STROUD MRN: [facility]:[id number] date: 1940 Sex: F Assigned Patient Location: LAB Current Patient Location: LAB Accession/Order Number: [id number] Exam Date: 08/19/2025 14:22 Report Date: 08/19/2025 15:48 At the request of: HELEN MEDINA Procedure: CT head/brain wo/w con CT BRAIN WITHOUT /WITH CONTRAST: CLINICAL HISTORY: Cerebrospinal Rhinorrhea COMPARISON: CT head 05/29/2025 TECHNIQUE: Contiguous axial unenhanced images were obtained through thebrain. This CT exam was performed using one or more following dose reduction techniques: Automated exposure control, adjustment of the mA and/or kV according to patient size, or use of iterative reconstruction technique. FINDINGS: There is no evidence of midline shift, intra or extra-axialfluid collection, hemorrhage or CT evidence of of acute large vasculardistribution stroke. 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 Similar appearance of a nondisplaced right occipital bone fracture. Mild chronic small vessel changes. Remote stroke right posterior lateral cerebellum. No abnormal postcontrast enhancement identified. Visualized intraorbital contents appear unremarkable. No paranasal sinus air-fluid levels identified. No definite discontinuity involving the anterior cranial fossa within the constraints of a CT head examination. The surrounding soft tissues are normal. CT/CT head/brain wo/w con IMPRESSION: Posttraumatic changes including right occipital bone skull fracture, nondisplaced and left inferior frontal encephalomalacia related tocontusion injury. No abnormal postcontrast enhancement identified. No definite paranasal sinus air-fluid levels identified in thisexamination or definite defect through the intracranial fossa floor. If warranted, andthe rhinorrhea tests positive for beta 2 transferrin, consider thin section CT facial bones with 0.6 mm reconstructions to evaluate for possible defect through the anterior cranial fossa/greater wing sphenoid. Impression dictated by: Elvin Jane M.D. 08/19/2025 3:48 PM Dictation Location: RADIO-PC-29 Electronically authenticated by: [id number] Y Date: 5:48 Dictated By: Elvin Jane M.D. Signed By:08/19/25 1550 DD/ 1548 TD/TT: Lead Burner Supervisor: Authorizing ProviderResult TypeResult StatusHelen Medina MDIMG CT PROCEDURES Final Result * (ABNORMAL) [facility] CREATININE (08/19/2025 1:56 PM EST)ComponentValueRef RangeTest MethodAnalysis TimePerformed AtPathologist SignatureCREATININE0.900.55 - 1.02 mg/dLTBHTBH EGFR-AF CITIZEN OF [place]>60>=60 mL/min/1.73m 2TBHTBH EGFR-NON AF CITIZEN OF [place] 59(L)>=60 mL/min/1.73m 2TBHSpecimen (Source)Anatomical Location / Laterality Collection Method / VolumeCollection TimeReceived Time08/19/2025 1:56 PM EST 08/19/2025 1:58 PM EST Narrative [facility] - 08/19/2025 2:09 PM EST Authorizing ProviderResult TypeResult StatusGeneric External Data Provider CLINISYNCFinal ResultPerforming OrganizationAddressCity/State/ZIP CodePhone Number CLINIS[facility]NC [facility] from Last 3 Months Insurance Care Teams Team MemberRelationshipSpecialtyStart DateEnd Date Helen Medina MD [address] [facility] [address] [place] [address] [facility] - [facility] Helen Medina MD [address] [facility] [address] [place] [address] PCP - [facility]01/24/24
--- OUTSIDE RECORDS SUMMARY | 2025-09-22 09:59 | XMS_ITS | Encounter Summary ---
Author Organization [facility] Address [address] [place] [address] Care Team Providers Care Hunting Sales Associate Name Role Phone Helen Alicea MD Primary Care Provider [phone] Helen Alicea MD Unavailable Encounter Details DateTypeDepartmentCare Team (Latest Contact Info)Ybpjzxxpwvj36/19/2025amboo flowsheet [facility] [address] [facility] [address] [place] [address] Yovani Anderson MD [address] [facility] [address] [id number] Social History Tobacco UseTypesPacks/DayYears UsedDateSmoking Tobacco: NeverSmokeless Tobacco: NeverAlcohol UseStandard Drinks/WeekCommentsNever0 (1 standard drink = 0.6 oz pure alcohol)PHQ-2AnswerDate RecordedPatient Health Questionnaire-2 Score0 08/25/2025CommentsUnknownSex and Gender InformationValueDate RecordedSex Assigned at BirthNot on fileLegal FzqEmspbn61/15/2023 7:24 PM EDTGender Identity Not on fileSexual OrientationNot on filedocumented as of this encounter Plan of Treatment DateTypeDepartmentCare Team (Latest Contact Info)Ufsiupzypst06/24/2026 9:30 AM ESTOffice Visit [facility] [address] [facility] [address] [place] [address] Toyin Zuleta, ALUMINUM HYDROXIDE PROCESS OPERATOR-SHUTTLE BUS DRIVER [address] [facility] [address] [place] [address] documented as of this encounter Visit Diagnoses Not on filedocumented in this encounter Additional Health Concerns AssessmentNoted TimePHQ-9 Depression Total Score: 8:00 AM EDT documented as of this encounter Care Teams Team MemberRelationshipSpecialtyStart DateEnd Date Helen Alicea MD [address] [facility] [address] [place] [address] PCP - GeneralFamily Medicine02/16/23 Helen Alicea MD [address] [facility] [address] [place] [address] PCP - ACO [facility]01/24/24documented as of this encounter
--- OUTSIDE RECORDS SUMMARY | 2025-09-22 10:07 | XMS_ITS | CCD ---
Author Organization [facility] Care Team Providers Care Contour Band Saw Operator Vertical Name Role Phone ADAM, DR PACKER Primary [...] HUTCHINS Attending Unavailable LISET, JAZZY Admitting Unavailable GLEN BURNIE, DR MOISES [employer] Consulting Unavailable LISET, JAZZY Consulting Unavailable Shannon Dotson Unavailable Ochoa Medina MD Primary Care Provider Ochoa Medina MD Unavailable Ochoa Medina MD Unavailable Sage Hall DO Attending Provider [phone] Sage Hall Attending Unavailable Sage Hall Admitting [...] Medina MD Unavailable OCHOA MEDINA Attending Unavailable OCOHA MEDINA Attending Unavailable BUCK FLORES Attending Unavailable HEMBUCK HERNÁNDEZ Attending Unavailable FELTER, ONOFRE A Attending Unavailable DHARA RODRIGUEZ Referring Unavailable DHARA RODRIGUEZ Attending Unavailable BUCK FLORES Attending Unavailable BUCK FLORES Attending Unavailable JAZZY HUTCHINS Attending Unavailable BUCK FLORES Attending Unavailable NEENA LOVE Attending Unavailable Allergies Allergy ClassificationReported Allergen(s)Allergy TypeDate of OnsetReaction(s) Facility (20 sources)PollenAllergy to obirnlmis13-78-8838GfamOG[facility] (20 sources)OtherPropensity to adverse apqnzhnws73-36-3339NN[facility] Medications Current Medications MedicationDrug Class(es)DatesSig (Normalized)Sig (Original)acetaminophen 500 mg oral tablet (12 sources)Start: 42-48-3402fqam 2 tablets by mouth every six hours as needed for headacheacetaminophen (TYLENOL EXTRA STRENGTH) 500 mg tablet Take 2 tablets (1,000 mg total) by mouth every6 (six) hours as needed for headaches. 05/20/2025 ActiveStart: 05-19-2025 End: 76-09-7511fkyq 1 tablet by mouth every six hours as needed for pain and fever and headache and pain1,000 mg, oral, Every 6 hours PRN, mild pain - pain scale 1-3, temperature greater than 38 C, headaches, moderate pain - pain scale 4-6, Starting on 05/19/25 at 0822Start: 05-17-2025 End: 62-30-1948rfrq 1000 mg intravenously every six hours1,000 mg, intravenous, at 400 mL/hr, Administer over 15 Minutes, Every 6 hours, First dose on Sat at 1715, For 24 hoursalendronic acid 70 mg oral tablet (20 sources)BisphosphonateStart: 64-11-8511rczlgkaccwg (Fosamax) 70 MG tablet Indications: Age-related osteoporosis without current pathological fracture TAKE 1 TAB 30 MIN BEFORE FIRST FOOD/BEVERAGE/MEDICINE OF THE DAY WITH PLAIN WATER ONCE AWEEK 12 tablet 3 08/14/2023 Activeamoxicillin 875 mg / clavulanate 125 mg oral tablet (6 sources)Penicillin-class AntibacterialStart: 01-06-2025 End: 58-69-5310misi 1 tablet by mouth in the morningamoxicillin-clavulanate (Augmentin) 875-125 MG tablet Indications: Acute non-recurrent ethmoidal sin usitis Take 1 tablet (875 mg) by mouth in the morning and 1 tablet (875 mg) in the evening. Take with meals. Do all this for 7 days. 14 tablet 01/06/2025 01/13/2025 ActiveStart: 08-06-2024 End: 04-85-0869ukpf 1 tablet by mouth in the morningamoxicillin-clavulanate (Augmentin) 875-125 MG tablet Indications: Acute non-recurrent pansinusitisTake 1 tablet (875 mg) by mouth in the morning and 1 tablet (875 mg) before bedtime. Do all this for 10 days. 20 tablet 08/06/2024 08/16/2024 ActiveStart: 11-07-2023 End: 07-26-2623igoj 1 tablet by mouth in the morningamoxicillin-clavulanate [...] dose nasal spray (20 sources)Histamine-1 Receptor AntagonistStart: 00-17-3799kgsi 1 spray(s) nasal route in the morningazelastine (Astelin) 0.1 % nasal spray Administer 1 spray into each nostril in the morning and 1 spray before bedtime. 01/18/2023 Activecefdinir 300 mg oral capsule (10 sources)Cephalosporin AntibacterialStart: 09-04-2024 End: 18-42-3408swzk 1 capsule by mouth in the morningcefdinir (Omnicef) 300 MG capsule Indications: Acute frontal sinusitis, recurrence not specified Take 1 capsule (300 mg) by mouth in the morning and 1 capsule (300 mg) before bedtime. Do all this for10 days. 20 capsule 09/04/2024 09/14/2024 Activecefuroxime 500 mg oral tablet (4 sources)Cephalosporin AntibacterialStart: 07-14-2025 End: 93-85-0275gstx 0.5 tablet by mouth in the morningcefuroxime [...] oral tablet (8 sources)Quinolone AntimicrobialStart: 06-03-2024 End: 14-60-7890pxgz 1 tablet by mouth in the morningciprofloxacin (Cipro) 500 MG tablet Indications: Onycholysis due to Pseudomonas infection Take 1 tablet (500 mg) by mouth in the morning and 1 tablet (500 mg) before bedtime. Do all this for 14 days.28 tablet 06/03/2024 06/17/2024 Discontinued (Therapy completed) Start: 05-14-2024 End: 51-88-0123tplq 1 tablet by mouth in the morningciprofloxacin (Cipro) 500 MG tablet Indications: Onycholysis due to Pseudomonas infection Take 1 tablet (500 mg) by mouth in the morning and 1 tablet (500 mg) before bedtime. Do all this for 10 days.20 tablet 05/14/2024 05/24/2024 Activecodeine phosphate 2 mg/ml / guaiFENesin 20 mg/ml oral solution (1 source)Opioid AgonistStart: 71-26-8737emqo 10 mL by mouth every four to six hours as neededguaiFENesin AC 100-10 MG/5ML 10 ml as needed Orally every 4-6 hrs Dec, Activecromolyn sodium 40 mg/ml ophthalmic solution (20 sources)Mast Cell StabilizerStart: 41-37-0263krdppkaa (Opticrom) 4 % ophthalmic solution Indications: Allergic conjunctivitis of both eyes Administer 1 drop into both eyes in the morning and 1 drop at noon and 1 drop in the evening and 1 drop before bedtime. 30 mL 3 09/12/2024 ActiveStart: 03-05-2024 End: 17-83-7759fytt 1 drop(s) into the eye(s) four times dailycromolyn (Opticrom) 4 % ophthalmic solution Indications: Unspecified macular degeneration INSTILL 1DROP INTO AFFECTED EYE 4 TIMES DAILY 30 mL 1 03/05/2024 09/12/2024 Discontinued (Reorder)Start: 16-93-4181sjvx 1 drop(s) into the eye(s) four times dailycromolyn (Opticrom) 4 % ophthalmic solution Indications: Unspecified macular degeneration INSTILL 1DROP INTO AFFECTED EYE 4 TIMES DAILY 30 mL 1 05/24/2023 Activedocusate sodium 50 mg / sennosides, [facility] 8.6 mg oral tablet (10 sources)Start: 05-16-2025 End: 14-78-7190cgoj 2 tablets by mouth once dailysennosides-docusate sodium [...] Activehydrocortisone 25 mg/ml topical cream (20 sources)CorticosteroidStart: 23-31-5539ovsvqzlvwqjjgj 2.5 % cream Indications: Other seborrheic dermatitis Apply topically 2 (two) times aday as needed (Rash) Apply thin layer to affected areas bid prn for flares 30 g 3 11/14/2023 Activehydrocortisone 2.5 % cream every 12 (twelve) hours. 0 Active levETIRAcetam 500 mg oral tablet (3 sources)Start: 05-20-2025 End: 79-34-4796qrda 1 tablet by mouth oncelevETIRAcetam (KEPPRA) 500 mg tablet Take 1 tablet (500 mg total) by mouth every 12 (twelve) hours for 3 days. 05/20/2025 05/23/2025 ActiveStart: 05-16-2025 End: ,000 mg, intravenous, at 400 mL/hr, Administer over 15 Minutes, Once, On Mon05/16/25 at 2225, For 1 dose, Look-alike/sound-alike medication - verify indication for use.loratadine 10 mg oral tablet (11 sources)Start: 29-92-4890yiqv 1 tablet by mouth in the morningloratadine (CLARITIN) 10 mg tablet Take 1 tablet (10 mg total) by mouth in the morning. 05/21/2025 ActiveStart: 29-92-0993jmkq 1 tablet by mouth in the morning loratadine (CLARITIN) 10 mg tablet Take 1 tablet (10 mg total) by mouth in the morning. 05/21/2025Start: 05-19-2025 End: 13-81-0328brss 10 mg by mouth once daily10 mg, oral, Daily, First dose on Mon05/19/25 at 1230, Look-alike/sound-alike medication - verify indication for use.metoprolol tartrate 50 mg oral tablet (20 sources)beta-Adrenergic BlockerStart: 06-05-2024 End: 70-01-8926ocxnizdulc tartrate (Lopressor) 50 MG tablet Indications: Benign essential hypertension TAKE 1 TABLET TWICE DAILY WITH FOOD 200 tablet 3 06/05/2024 ActiveStart: 94-73-6783mixdkebply tartrate (Lopressor) 50 MG tablet Indications: Benign essential hypertension (CMS/HCC) TAKE 1 TABLET TWICE DAILY WITH FOOD 200 tablet 3 03/05/2024 ActiveStart: 52-11-1183lppronewid tartrate (Lopressor) 50 MG tablet Indications: Benign essential hypertension (CMS/HCC) TA KE 1 TABLET TWICE DAILY WITH FOOD 200 tablet 3 09/27/2023 ActiveMetoprolol Tartrate ActiveMultiple Vitamins-Minerals (Eye Vitamins) capsule (20 sources)Multiple Vitamins-Minerals (Eye Vitamins) capsule Orally Active Multiple Vitamins-Minerals (Eye Vitamins) capsule Orally 0 ActivepredniSONE 10 mg oral tablet (2 sources)Start: 07-24-2025 End: 14-90-3310nulr 4 tablets by mouth once daily, then [...] 8 mg/0.07 mL injection (1 source) End: 39-31-6086dfckhmduhwd (EYLEA HD) 8 mg/0.07 mL injection 0.07 mL (8 mg total) by intravitreal route every 3 (three) months. 05/20/2025 Discontinued (Stop Taking at Discharge)ampicillin-sulbactam (UNASYN) 3,000 mg in sodium chloride 0.9 % 100 mL IVPB W/ADAPTER (1 source)Start: 05-17-2025 End: 41-47-6537pjol 3000 mg intravenously every six hours3,000 mg, intravenous, at 200 mL/hr, Administer over 30 Minutes, Every 6 hours, First dose on Sat at 1715, For 5 days, For Vial-2-Bag: Attach bag and vial to adapter - Use immediately after activating; dissolve drug prior to administration., Indication: Aspiration pneumoniaCalcium Gluconate (1 source)Start: 05-16-2025 End: 47-36-2798nlwtotd gluconate IVPB 1000 mg/50 mL (20 mg/mL premix)carvedilol 12.5 mg oral tablet (1 source)alpha-Adrenergic Korey, beta-Adrenergic BlockerStart: 05-19-2025 End: 44-66-1648vuxx 12.5 mg by mouth twice daily12.5 mg, oral, 2 times daily, First dose on Mon05/19/25 at 0900, Give with meal or snack. Look-alike/sound- alike medication - verify indication for use.doxycycline monohydrate 100 mg oral capsule (1 source)Tetracycline-class DrugStart: 76-95-4945bwrj 1 capsule by mouth every twelve hoursDoxycycline Monohydrate 100 mg 1 capsule Orally bid for 10 day(s) Dec, Not-Taking0.3 ml enoxaparin sodium 100 mg/ml prefilled syringe (1 source)Low Molecular Weight HeparinStart: 05-18-2025 End: 52-87-2230tdxrqh 30 mg by subcutaneous injection every twelve hours30 mg, subcutaneous, Every 12 hours, First dose on Mon05/18/25 at 1800, Look-alike/sound-alike medication - verify indication for use.glucagon (rdna) 1 mg injection (1 source)Antihypoglycemic AgentStart: 05-16-2025 End: 75-88-1478428 ml glucose 50 mg/ml injection (3 sources)Start: 05-16-2025 End: 49-51-9601Qpfdz: 05-16-2025 End: 76-04-5589Ybzvj: 05-16-2025 End: ml hydrALAZINE hydrochloride 20 mg/ml injection (2 sources)Arteriolar VasodilatorStart: 05-16-2025 End: 27-00-7955xijs 10 mg intravenously every six hours as mg, intravenous, Every 6 hours PRN, high blood pressure, SBP>140 and HR4 ml labetalol hydrochloride 5 mg/ml cartridge (2 sources)beta-Adrenergic BlockerStart: 05-19-2025 End: 70-20-096818 mg, intravenous, Every 10 min PRN, high blood pressure, SBP >140 and HR >60. MAX of 3 doses per hour., Starting on Mon05/19/25 at 0820, Look-alike/sound-alike medication - verify indication for use.Start: 05-16-2025 End: 48-34-041380 mg, intravenous, Every 10 min PRN, high blood pressure, Starting on Mon05/16/25 at 2256, For systolic blood pressure greater than 140 mmHg, give first, hold for HRlevETIRAcetam (KEPPRA) IVPB 500 mg/100 mL in iso- osmotic sodium chloride (5 mg/mL premix) (1 source)Start: 05-17-2025 End: 55-31-2438ebgIQASLltyfk (KEPPRA) IVPB 500 mg/100 mL in iso-osmotic sodium chloride (5 mg/mL premix)lisinopril 10 mg oral tablet (3 sources)Angiotensin Converting Enzyme Inhibitor End: 49-32-6848mxqd 1 tablet by mouth once dailylisinopril 10 MG tablet Take 10 mg by mouth Daily 06/18/2025 Discontinued (Therapy completed)magnesium sulfate IVPB 2000 mg/50 mL in iso-osmotic water (40 mg/mL premix) (1 source)Start: 05-16-2025 End: 09-66-8204tqlivvznp sulfate IVPB 2000 mg/50 mL in iso-osmotic water (40 mg/mL premix)2 ml ondansetron 2 mg/ml injection (1 source)Serotonin-3 Receptor AntagonistStart: 05-16-2025 End: 49-42-0009hmqv 4 mg intravenously every six hours as needed for nausea pantoprazole 40 mg injection (1 source)Proton Pump InhibitorStart: 05-17-2025 End: 84-62-478685 mg, intravenous, Every morning before breakfast, First dose on Mon05/17/25 at 0700, Look-alike/sound-alike medication - verify indication for use., Indication: Other (CARLOS), Please specify: Stress Ulcer Prophylaxis polyethylene glycol 3350 43518 mg powder for oral solution (1 source)Osmotic LaxativeStart: 05-16-2025 End: 92-43-9745Uhvxtzxgh Chloride (1 source)Start: 05-16-2025 End: 46-87-0765nycgxduha chloride (K-TAB,KLOR-CON) CR tablet 20-40 mEqpotassium chloride IVPB 10 mEq/50 mL in water (0.2 mEq/mL premix) (1 source)Start: 05-16-2025 End: 09-82-3105rnvapgufw chloride IVPB 10 mEq/50 mL in water (0.2 mEq/mL premix) 1000 ml sodium chloride 9 mg/ml injection (4 sources)Start: 05-16-2025 End: ,000 mL, intravenous, at 500 mL/hr, Administer over 2 Hours, Once, On Mon05/16/25 at 2300, For 1 doseStart: 05-16-2025 End: mL, intravenous, Every 12 hours scheduled, First dose on Mon05/16/25 at 2255Start: 05-16-2025 End: 19-48-4864xmsg 100 mL intravenously every zguf430 mL/hr, intravenous, Continuous, Starting on Mon05/16/25 at 2255, For 1 dayStart: 05-16-2025 End: 11-12-4240ejbvwo phosphate 20 mmol in sodium chloride 0.9 % 250 mL IVPB (1 source)Start: 05-16-2025 End: 04-32-8684iysjvp phosphate 20 mmol in sodium chloride 0.9 % 250 mL IVPB1 ml triamcinolone acetonide 40 mg/ml prefilled syringe (4 sources)CorticosteroidStart: 08-06-2024 End: 25-52-0102jbzuwarjqtkhw acetonide (Kenalog-40) injection 40 mgStart: 08-06-2024 End: 18-52-3279mclpdk 40 mg by intramuscular injection once40 mg, Intramuscular, Once, On Mon08/06/24 at 1100, For 1 doseStart: 08-06-2024 End: 67-61-5545mswlhnjpspruy acetonide (Kenalog-40) injection 40 mgStart: 08-06-2024 End: 69-20-1372dylauj 40 mg by intramuscular injection once40 mg, Intramuscular, Once, On Mon08/06/24 at 1100, For 1 dose Problems Active Problems Problem ClassificationProblemDateDocumented DateEpisodic/ChronicAcute cerebrovascular disease (20 sources)Cerebral hemorrhage; Translations: [Nontraumatic intracerebral hemorrhage, unspecified]Onset: 039634-26-6837UatgrlgKtndmladvbxwwx/social admission (2 sources)Patient encounter status; Translations: [Other specified counseling] 30-67-3512KiacplleGzahtcxrz of lipid metabolism (20 sources)Hypercholesterolemia; Translations: [Pure hypercholesterolemia, unspecified]Onset: 530904-36-2363ZbpbguaDzixpgouhsoxbo and diverticulitis (20 sources)Diverticular disease; Translations: [Diverticulosis of intestine, part unspecified, without perforation or abscess without bleeding]Onset: 557929-60-7213NxecjenP Codes: Fall (17 sources)Fall; Translations: [Unspecified fall, initial encounter]Onset: 868702-79-1088RyqnpqkdPdmobmcsn hypertension (20 sources)Benign essential hypertension; Translations: [Essential (primary) hypertension]Onset: 998093-67-9520KuaitepIksldcxakljlv and screening for infectious disease (3 sources)Contact with and (suspected) exposure to other viral communicable diseases; Translations: [Requiresinfluenza virus vaccination]Onset: 07-15-2021 Resolved: 78-59-4150QchowbrzYylojzbfsjyu injury (6 sources)Intracranial hemorrhage following injury with loss of consciousness; Translations: [Traumatic hemorrhage of cerebrum, unspecified, with loss of consciousness of 6 hours to 24 hours, sequela]88-46-3296EfkfbuetDjguxytrhdsf (20 sources)Age-related osteoporosis without current pathological fracture; Translations: [Osteoporosis]Onset: 999791-10-1427DbacqblMjdjg and unspecified benign neoplasm (2 sources)Melanocytic nevus of trunk; Translations: [Melanocytic nevi of trunk] 20-28-8713EssarbdcTkdto and unspecified benign neoplasm (2 sources)Melanocytic nevus of left upper limb; Translations: [Melanocytic nevi of left upper limb, includingshoulder]72-24-4623RxcoubseZoafy and unspecified benign neoplasm (2 sources)Melanocytic nevus of right upper limb; Translations: [Melanocytic nevi of right upper limb, including shoulder]17-72-3225BqmulougBfvsd and unspecified benign neoplasm (2 sources)Neurofibroma; 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, unspecified]82-48-6296BwjnyeoyIfxha injuries and conditions due to external causes (11 sources)Traumatic rhabdomyolysis; Translations: [Traumatic ischemia of muscle, initial encounter]Onset: 197805-27-1780KccfchzbWuiyd injuries and conditions due to external causes (1 source)Injury of headOnset: 75-60-5894DkwduroyFqwmi lower respiratory disease (2 sources)Rib pain; Translations: [Pleurodynia]58-35-1157XgbmmqwoNkcpd nervous system disorders (8 sources)Cerebrospinal fluid rhinorrhea; Translations: [Cerebrospinal rhinorrhea]Onset: 705328-05-9371YjjpcdtpRiemu nutritional; endocrine; and metabolic disorders (2 sources)Decrease in appetite; Translations: [Anorexia]79-46-0085LezmrxxvKqnzw screening for suspected conditions (not mental disorders or infectious disease) (4 sources)Encounter for screening mammogram for malignant neoplasm of breast; Translations: [ENC SCR MAMMO MALIG NEOPLASM BREAST]Onset: 29-82-7565Tscpmtqy Other skin disorders (8 sources)Onycholysis; Translations: [Onycholysis]96-88-4123AfvkanjcBlulv skin disorders (2 sources)Seborrheic keratosis; Translations: [Other seborrheic keratosis] 77-30-2781PaumkuvlUkbat skin disorders (2 sources)Actinic keratosis; Translations: [Actinic keratosis]11-18-2024 EpisodicOther skin disorders (2 sources)Sebaceous hyperplasia; Translations: [Other specified follicular disorders]84-49-4661DcypleijKqzdt upper respiratory disease (20 sources)Allergic rhinitis due to pollen; Translations: [Allergic rhinitis due to pollen]Onset: 246250-31-1393OyxrpnoGbvep upper respiratory disease (4 sources)Nasal congestion; Translations: [NASAL CONGESTION]Onset: 03-01-2022 EpisodicOther upper respiratory infections (6 sources)Chronic sinusitis; Translations: [Chronic sinusitis, unspecified] Onset: 277643-90-4497AkrhwcbLvrat upper respiratory infections (15 sources)Acute sinusitis; Translations: [Acute sinusitis]Onset: 07-24-2025 60-92-4554IphfmegoUxlrgbbf codes; unclassified (20 sources)Hypersomnia; Translations: [Hypersomnia, unspecified]Onset: 896971-69-1688VeuwqczFlgibzkp codes; unclassified (20 sources)Obstructive sleep apnea syndrome; Translations: [Obstructive sleep apnea (adult) (pediatric)]Onset: 047667-78-1356VhybdxvOpbhbnea codes; unclassified (1 source)Pain, unspecified; Translations: [Pain, unspecified]Onset: 05-16-2025 EpisodicRetinal detachments; defects; vascular occlusion; and retinopathy (20 sources)Bilateral degeneration of macula; 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]Onset: 964667-55-5516BpfwnhuLxvei and face fractures (15 sources)Closed fracture of base of skull; Translations: [Fracture of base of skull, right side, initial encounter for closed fracture]Onset: 05-20-2025 40-74-6509TfnfcmcaNffftxubijq; intervertebral disc disorders; other back problems (20 sources)Cervical spondylosis; Translations: [Spondylosis without myelopathy or radiculopathy, cervical region]Onset: 747853-15-5910DppzzntLiruslzqavh injury; contusion (2 sources)Contusion of left front wall of thorax, subsequent encounter; Translations: [Other specified aftercare]36-16-7030WchnxtrsYonjzavihotu (1 source)CONTACT W/AND (SUSP) EXPOS COVID-19; Translations: [CONTACT W/AND (SUSP) EXPOS COVID-19]Onset: 79-26-9790Aslkvyrafhyd (1 source)Found in bathtub todayOnset: 05-16-2025 Past or Other Problems Problem ClassificationProblemDateDocumented DateEpisodic/ChronicEpilepsy; convulsions (20 sources)Seizure; Translations: [Unspecified convulsions]Onset: 03-13-2023 16-92-8971BzguxlbwOzktjlagcuku; infection of eye (except that caused by tuberculosis or sexually transmitteddisease) (20 sources)Allergic conjunctivitis of bilateral eyes; Translations: [Acute atopic conjunctivitis, bilateral]Onset: 711900-07-6336YudowqiuCwkd disorders (20 sources)Mood disordersOnset: 06-06-2023 Resolved: Other bone disease and musculoskeletal deformities (1 source)Other specified disorders of bone density and structure, right thigh; Translations: [OTH D/O BONE DEN STRUCT RT THIGH]Onset: 57-38-5964Mjlgsyui Results Test NameValueInterpretationReference RangeFacilityCT HEAD/BRAIN WOon 05-29-[address] [address] [place] Scan Report Signed Patient: MEI GUARDADO MR#: [id number] : 1940 Acct:[id number] Age/Sex: 85 / F ADM Date: 05/29/25 Loc: CT Attending Dr: ROLAND KAUR Ordering Physician: ROLAND KAUR Date of Service: 05/29/25 Procedure(s): CT head/brain wo con Accession Number(s): [id number] cc: OCHOA MEDINA [place] [id number] Patient Name: MEI GUARDADO MRN: [id number] date: 1940 Sex: F Assigned Patient Location: CT Current Patient Location: CT Accession/Order Number: [id number] Exam Date: 05/29/2025 07:59 Report Date: 05/29/2025 [...] Bah M.D. 05/29/2025 9:53 AM Dictation Location: [place] [address] Electronically authenticated by: [id number] Y Date: 05/29/2025 09:53 Dictated By: Buck Bah M.D. Signed By: 05/29/2556 DD/ 2 TD/TT: Oil Rig Driller:TBHRadiology, Radiologist, - 05/29/2025 [place] [address] CT Scan Report Signed Patient: MEI GUARDADO MR#: [id number] : 1940 Acct:[id number] Age/Sex: 85 / F ADM Date: 05/29/25 Loc: CT Attending Dr: ROLAND KAUR Ordering Physician: ROLAND KAUR Date of Service: 05/29/25 Procedure(s): CT head/brain wo con Accession Number(s): [id number] cc: OCHOA MEDINA [place] [address] Patient Name: MEI GUARDADO MRN: [facility]:[id number] date: 1940 Sex: F Assigned Patient Location: CT Current Patient Location: CT Accession/Order Number: [id number] Exam Date: 05/29/2025 07:59 Report Date: 05/29/2025 [...] Bah M.D. 05/29/2025 9:53 AM Dictation Location: [place] [address] Electronically authenticated by: [id number] Y Date: 05/29/2025 09:53 Dictated By: Buck Bah M.D. Signed By: 05/29/25 0956 DD/ 0953 TD/TT: Oil Rig Driller: [facility] HealthcareRadiology Study observation (narrative)[facility] HealthcareCT HEAD/BRAIN WOOrdered By: Radiologist Radiology on 26-71-4026[facility] Work Phone: bASIC METABOLIC PANELon 16-94-6789Vuzav gap [Moles/Vol]9 mmol/LNormal5-15Pro[facility] HospitalComment on above:Performed By: #### FIBR #### [facility] ([facility]) [address] [place] [address] VIRCalcium [Mass/Vol]7.6 mg/dLLow8.5-10.5Pro[facility] HospitalComment on above:Performed By: #### FIBR #### [facility] ([facility]) [address] [place] [address] VIRChloride [Moles/Vol]114 mmol/WHztj66-301EoaGbprhl [facility] HospitalComment on above:Performed By: #### FIBR #### [facility] ([facility]) [address] [place] [address] VIRCO2 [Moles/Vol]20 mmol/GXqk84-55PxwMhcbcu [facility] Comment on above:Performed By: #### FIBR #### [facility] ([facility]) [address] [place] [address] VIRCreatinine [Mass/Vol]0.52 mg/dLNormal0.40-1.00ProOhiohealth Mansfield Hospitalca [facility] HospitalComment on above:Result Comment: METHOD TRACEABLE TO IDMS STANDARDPerformed By: #### FIBR #### [facility] ([facility]) [address] [place] [address] VIRGFR/1.73 sq M.predicted among non-blacks MDRD (S/P/Bld) [Vol rate/Area]90 mL/min/{1.73_m2}Normal>=60ProSelect Medical Specialty Hospital - TrumbullComment on above:Result Comment: Reported eGFR is based on the CKD-EPI 2020 equation that does not use a race coefficient. EGFR not calculated due to patient's gender not being defined.Performed By: #### FIBR #### [facility] ([facility]) [address] [place] [address] VIRGlucose [Mass/Vol]93 mg/mFOyemwp27-04ReiQfmvxt [place] HospitalComment on above:Performed By: #### FIBR #### [facility] ([facility]) [address] [place] [address] VIRPotassium [Moles/Vol]3.8 mmol/LNormal3.5-5.0ProPomerene Hospital HospitalComment on above:Performed By: #### FIBR #### [facility] ([facility]) [address] [place] [address] VIRSodium [Moles/Vol]143 mmol/ZKxvbon015-139GquEhhvhg [place] HospitalComment on above:Performed By: #### FIBR #### [facility] [facility] [address] [place] [address] VIRUrea nitrogen [Mass/Vol]16 mg/dLNormal5-27[facility]ina HospitalComment on above:Performed By: #### FIBR #### [facility] ([facility]) [address] [place] [address] VIRBasic Metabolic Panelon 74-36-0432Fhlek gap [Moles/Vol]9 mmol/L5 - 15 mmol/LProMedica Health SystemCalcium [Mass/Vol]7.6 mg/dLLow8.5 - 10.5 mg/dLClermont County Hospital Health SystemChloride [Moles/Vol]114 mmol/LHigh98 - 109 mmol/LProMedica Health SystemCO2 [Moles/Vol]20 mmol/LLow22 - 32 mmol/LProMedica Health SystemCreatinine [Mass/Vol]0.52 mg/dL0.40 - 1.00 mg/dLFulton County Health Center SystemComment on above:METHOD TRACEABLE TO IDMS STANDARDEGFR Non-Race Dependent 90- [facility] SystemComment on above:Reported eGFR is based on the CKD-EPI 2020 equation that does not use a race coefficient. EGFR not calculated due to patient's gender not being defined. Glucose [Mass/Vol]93 mg/dL65 - 99 mg/dLOhioHealth Grady Memorial Hospitalca Health SystemPotassium [Moles/Vol]3.8 mmol/L3.5 - 5.0 mmol/LProMedica Health SystemSodium [Moles/Vol] 143 mmol/L134 - 146 mmol/LProMedica Health SystemUrea nitrogen [Mass/Vol]16 mg/dL5 - 27 mg/dLClermont County Hospital Health SystemCK TOTALon 29-77-6508BMF093 U/LHigh 24-170C[facility] HospitalComment on above:Performed By: #### FIBR #### [facility] ([facility]) [address] [place] [address] VIRCK Totalon 44-12-2515HU [Catalytic activity/Vol]270 U/LHigh 24 - 170 U/[facility] Health SystemLavender Topon 74-31-9208Chaka TubeAuto ResultedProAthens-Limestone Hospital Health SystemProHolzer Hospital SystemMYOGLOBIN, SERUMon 68-73-3410QJSRR UVBOMKGTJ80.3 ng/jHIkgd27.3-65.8[facility] HospitalComment on above:Performed By: #### FIBR #### [facility] ([facility]) [address] [place] [address] VIRMyoglobin, serumon 60-72-2031Kxdxykisq [Mass/Vol]74.3 ng/mL High14.3 - 65.8 ng/mLSumma Health Akron CampusNo Panel Informationon 05-20-2025 Interpretation and review of laboratory resultsAbnormalSumma Health Akron Campus ProMOhioHealth Doctors HospitalBASIC METABOLIC PANELon 23-62-6540Nuhwx gap [Moles/Vol]9 mmol/LNormal5-15[facility] HospitalComment on above:Performed By: #### FIBR #### [facility] ([facility]) [address] [place] [address] VIRCalcium [Mass/Vol]7.9 mg/dLLow8.5-10.5PCleveland Clinic Avon HospitalComment on above:Performed By: #### FIBR #### [facility] ([facility]) [address] [place] [address] VIRChloride [Moles/Vol]115 mmol/ZJwir14-497KkdKianpeSelect Medical Specialty Hospital - TrumbullComment on above:Performed By: #### FIBR #### [facility] ([facility]) [address] [place] [address] VIRCO2 [Moles/Vol]19 mmol/XGcn75-11FaqPakcjdCleveland Clinic Avon Hospital Comment on above:Performed By: #### FIBR #### [facility] ([facility]) [address] [place] [address] VIRCreatinine [Mass/Vol]0.49 mg/dLNormal0.40-1.00[facility] HospitalComment on above:Result Comment: METHOD TRACEABLE TO IDMS STANDARDPerformed By: #### FIBR #### [facility] ([facility]) [address] [place] [address] VIREGFR (CKD-EPI) NON-RACE DEPENDENT>^90Normal>=60ProPomerene Hospital HospitalComment on above:Result Comment: Reported eGFR is based on the CKD-EPI 2020 equation that does not use a race coefficient. EGFR not calculated due to patient's gender not being defined.Performed By: #### FIBR #### [facility] ([facility]) [address] [place] [address] VIRGlucose [Mass/Vol]105 mg/hFLsdw24-34ZyoDspizo [place] HospitalComment on above:Performed By: #### FIBR #### [facility] ([facility]) [address] [address] VIRPotassium [Moles/Vol]3.6 mmol/LNormal3.5-5.0ProPomerene Hospital HospitalComment on above:Performed By: #### FIBR #### [facility] ([facility]) [address] [place] [address] VIRSodium [Moles/Vol]143 mmol/URzvthg493-876EniFwzbaw [place] HospitalComment on above:Performed By: #### FIBR #### [facility] ([facility]) [address] [place] [address] VIRUrea nitrogen [Mass/Vol]15 mg/dLNormal5-27ProPomerene Hospital HospitalComment on above:Performed By: #### FIBR #### [facility] ([facility]) [address] [place] [address] VIRBasic Metabolic Panelon 37-96-4717Mefmc gap [Moles/Vol]9 mmol/L5 - 15 mmol/LProMedica Health SystemCalcium [Mass/Vol]7.9 mg/dLLow8.5 - 10.5 mg/dLProMedica Health SystemChloride [Moles/Vol]115 mmol/LHigh98 - 109 mmol/LProMedica Health SystemCO2 [Moles/Vol]19 mmol/LLow22 - 32 mmol/LProMedica Health SystemCreatinine [Mass/Vol]0.49 mg/dL0.40 - 1.00 mg/dLSumma Health Akron CampusComment on above:METHOD TRACEABLE TO IDMS STANDARDEGFR Non-Race Dependent- [facility] HospitalComment on above:Reported eGFR is based on the CKD-EPI 2020 equation that does not use a race coefficient. EGFR not calculated due to patient's gender not being defined. Glucose [Mass/Vol]105 mg/bATulc75 - 99 mg/dLSumma Health Akron CampusPotassium [Moles/Vol]3.6 mmol/L3.5 - 5.0 mmol/LPrPlatte Valley Medical Center Health SystemSodium [Moles/Vol] 143 mmol/L134 - 146 mmol/[facility] SystemUrea nitrogen [Mass/Vol]15 mg/dL5 - 27 mg/dLSumma Health Akron CampusCB WITH AUTO DIFFERENTIALon 05-19-2025 BASOPHILS ABSOLUTE COUNT (10*3/UL) BY AUTOMATED COUNT0.0 10*3/uLNormal0.0-0.2 [facility] HospitalComment on above:Performed By: #### FIBR #### [facility] ([facility]) [address] [place] [address] VIRBASOPHILS RELATIVE PERCENT BY AUTOMATED COUNT0.4 %Normal [facility] HospitalComment on above:Performed By: #### FIBR #### [facility]) [address] [place] [address] VIRCELLAVISION DIFFERENTIAL TYPEAUTOMATED DIFFERENTIALNormal [facility] HospitalComment on above:Performed By: #### FIBR #### [facility] ([facility]) [address] [place] [address] VIREosinophils (Bld) [#/Vol]0.0 10*3/uLNormal0.0-0.4[facility] HospitalComment on above:Performed By: #### FIBR #### [facility]) [address] [place] [address] VIREOSINOPHILS RELATIVE PERCENT BY AUTOMATED COUNT0.4 %Normal [facility] HospitalComment on above:Performed By: #### FIBR #### [facility] ([facility]) [address] [place] [address] VIRErythrocyte distribution width (RBC) [Ratio]14.2 %Normal 11.5-15[facility] HospitalComment on above:Performed By: #### FIBR #### [facility] ([facility]) [address] [place] [address] VIRHematocrit (Bld) [Volume fraction]30.8 %Gdf05-45HpiSzynkc [place] HospitalComment on above:Performed By: #### FIBR #### [facility]) [address] [place] [address] VIRHemoglobin (Bld) [Mass/Vol]10.3 g/dLLow11.7-15.5[facility] HospitalComment on above:Performed By: #### FIBR #### [facility] ([facility]) [address] [place] [address] VIRLYMPHOCYTES ABSOLUTE COUNT (10*3/UL) BY AUTOMATED COUNT0.9 10*3/uLLow1.0-3.5[facility] HospitalComment on above:Performed By: #### FIBR #### [facility]) [address] [place] [address] VIRLYMPHOCYTES RELATIVE PERCENT BY AUTOMATED COUNT9.5 %Normal [facility] HospitalComment on above:Performed By: #### FIBR #### [facility]) [address] [place] [address] VIRMCH (RBC) [Entitic mass]30.7 jyJyhhue51-51NcaYepuqf [place] HospitalComment on above:Performed By: #### FIBR #### [facility] ([facility]) [address] [place] [address] VIRMCHC (RBC) [Mass/Vol]33.4 g/mMDkawon82-37ChfVmvwwy [place] HospitalComment on above:Performed By: #### FIBR #### [facility] ([facility]) [address] [place] [address] VIRMCV (RBC) [Entitic vol]92 bXVuypiw34-535YdyVuhdbg [facility] HospitalComment on above:Performed By: #### FIBR #### [facility]) [address] [place] [address] VIRMONOCYTES ABSOLUTE COUNT (10*3/UL) BY AUTOMATED COUNT0.6 10*3/uLNormal0.0-0.9ProOhiohealth Mansfield Hospitalca [place] HospitalComment on above:Performed By: #### FIBR #### [facility]) [address] [place] [address] VIRMONOCYTES RELATIVE PERCENT BY AUTOMATED COUNT5.8 %Normal ProMDetwiler Memorial Hospital HospitalComment on above:Performed By: #### FIBR #### [facility]) [address] [place] [address] VIRNEUTROPHILS ABSOLUTE COUNT BY AUTOMATED COUNT8.3 10*3/uLHigh 1.5-6.6ProOhiohealth Mansfield Hospitalca [facility] [place] HospitalComment on above:Performed By: #### FIBR #### [facility]) [address] [place] [address] VIRNEUTROPHILS RELATIVE PERCENT BY AUTOMATED COUNT83.9 %Normal ProMDetwiler Memorial Hospital HospitalComment on above:Performed By: #### FIBR #### [facility]) [address] [place] [address] VIRPlatelet mean volume (Bld) [Entitic vol]10.1 fLNormal7-12 [facility] HospitalComment on above:Performed By: #### FIBR #### [facility] ([facility]) [address] [place] [address] VIRPlatelets (Bld) [#/Vol]122 10*3/xFRdo057-277UvxCeyyls [facility] HospitalComment on above:Performed By: #### FIBR #### [facility]) [address] [place] [address] VIRRBC COUNT3.35 X10E12/LLow3.8-5.2PC[facility] Comment on above:Performed By: #### FIBR #### [facility]) [address] [place] [address] VIRWBC (Bld) [#/Vol]9.9 10*3/uLNormal4-11[facility] HospitalComment on above:Performed By: #### FIBR #### [facility]) [address] [place] [address] VIRCBC auto differentialon 02-91-5874Tahhmzmkr (Bld) [#/Vol]0 10*3/uL0.0 - 0.2 10*3/uLSumma Health Akron CampusBasophils/100 WBC (Bld)0.4 % [facility] CampusDifferential cell count method Nom (Bld)AUTOMATED DIFFERENTIALSumma Health Akron CampusEosinophils (Bld) [#/Vol]0 10*3/uL0.0 - 0.4 10*3/uLSumma Health Akron CampusEosinophils/100 WBC (Bld)0.4 %[facility] CampusErythrocyte distribution width (RBC) [Ratio]14.2 %11.5 - 15 %[facility] CampusHematocrit (Bld) [Volume fraction]30.8 %Low35 - 47 %[facility] CampusHemoglobin (Bld) [Mass/Vol]10.3 g/dLLow11.7 - 15.5 g/dLSumma Health Akron CampusInterpretation and review of laboratory resultsAbnoAtrium Health PinevilleLymphocytes (Bld) [#/Vol]0.9 10*3/uLLow1.0 - 3.5 10*3/uLSumma Health Akron CampusLymphocytes/100 WBC (Bld)9.5 %[facility] (RBC) [Entitic mass]30.7 pg27 - 34 pgProMedica Health SystemMCHC (RBC) [Mass/Vol]33.4 g/dL32 - 36 g/dLProCleveland Clinic Fairview HospitalMCV (RBC) [Entitic vol]92 fL80 - 100 fL [facility] SystemMonocytes (Bld) [#/Vol]0.6 10*3/uL0.0 - 0.9 10*3/uL ProMEssentia Health SystemMonocytes/100 WBC (Bld)5.8 %[facility] Neutrophils (Bld) [#/Vol]8.3 10*3/uLHigh1.5 - 6.6 10*3/uLProHolzer Hospital System Neutrophils/100 WBC (Bld)83.9 %[facility] SystemPlatelet mean volume (Bld) [Entitic vol]10.1 fL7 - [address] [facility] SystemPlatelets (Bld) [#/Vol]122 10*3/uLLowFulton County Health Center SystemRBC (Bld) [#/Vol]3.35 10*6/uLGlacial Ridge Hospital SystemWBC LM Ql (Sput)9.9[facility] SystemProCleveland Clinic Fairview HospitalCK TOTALon 39-90-0638BTT481 U/GDvvj23-565MbwZbwtxkSelect Medical Specialty Hospital - TrumbullComment on above:Performed By: #### FIBR #### [facility]) [address] [place] [address] VIRCK Totalon 49-40-9925NU [Catalytic activity/Vol]653 U/LHigh 24 - 170 U/LPrSelect Medical OhioHealth Rehabilitation Hospital [facility] Dublin SystemMYOGLOBIN, SERUMon 68-28-5689YWNKZ MYOGLOBIN 95.4 ng/pGWcgl91.3-65.8[facility] HospitalComment on above:Performed By: #### FIBR #### [facility]) [address] [place] [address] VIRMyoglobin, serumon 83-15-4847Ekletxhnx [Mass/Vol]95.4 ng/mL High14.3 - 65.8 ng/mLSumma Health Akron CampusNo Panel Informationon 05-19-2025 Interpretation and review of laboratory resultsAbnormalProGundersen Boscobel [facility] and Clinics SystemPOTASSIUMon 52-90-0675Knuunuing [Moles/Vol]4.2 mmol/L Normal3.5-5.0[facility] HospitalComment on above:Performed By: #### FIBR #### [facility]) [address] [place] [address] VIRPotassiumon 86-24-0255Mbddmjajphywzb and review of laboratory resultsNormalSumma Health [facility]ron CampusPotassium [Moles/Vol]4.2 mmol/L 3.5 - 5.0 mmol/LProMedica Izard County Medical CenterBASIC METABOLIC PANELon 81-15-0308Gmsxo gap [Moles/Vol]7 mmol/LNormal5-15[facility] HospitalComment on above:Performed By: #### CBCA #### [facility]) [address] [place] [address] VIRCalcium [Mass/Vol]7.8 mg/dLLow8.5-10.5PCleveland Clinic Avon HospitalComment on above:Performed By: #### CBCA #### [facility]) [address] [place] [address] VIRChloride [Moles/Vol]115 mmol/KFrqj47-653JjlQjzsxmSelect Medical Specialty Hospital - TrumbullComment on above:Performed By: #### CBCA #### [facility]) [address] [place] [address] VIRCO2 [Moles/Vol]22 mmol/NFqncxy23-63BunOoswmhCleveland Clinic [facility]on Hospital Comment on above:Performed By: #### CBCA #### [facility]) [address] [place] [address] VIRCreatinine [Mass/Vol]0.49 mg/dLNormal0.40-1.00[facility] HospitalComment on above:Result Comment: METHOD TRACEABLE TO IDMS STANDARDPerformed By: #### CBCA #### [facility]) [address] [place] [address] VIREGFR (CKD-EPI) NON-RACE DEPENDENT>^90Normal>=60ProPomerene Hospital HospitalComment on above:Result Comment: Reported eGFR is based on the CKD-EPI 2020 equation that does not use a race coefficient. EGFR not calculated due to patient's gender not being defined.Performed By: #### CBCA #### [facility]) [address] [place] [address] VIRGlucose [Mass/Vol]110 mg/fDKmfy89-94PygCjmbnp [place] HospitalComment on above:Performed By: #### CBCA #### [facility] ([facility]) [address] [address] VIRPotassium [Moles/Vol]3.8 mmol/LNormal3.5-5.0ProPomerene Hospital HospitalComment on above:Performed By: #### CBCA #### [facility] ([facility]) [address] [place] [address] VIRSodium [Moles/Vol]144 mmol/XUmbwfy347-881BkhKegtmk [place] HospitalComment on above:Performed By: #### CBCA #### [facility] ([facility]) [address] [address] VIRUrea nitrogen [Mass/Vol]12 mg/dLNormal5-27ProPomerene Hospital HospitalComment on above:Performed By: #### CBCA #### [facility] ([facility]) [address] [address] VIRBasic Metabolic Panelon 74-99-5277Czepl gap [Moles/Vol]7 mmol/L5 - 15 mmol/LProMedica Health SystemCalcium [Mass/Vol]7.8 mg/dLLow8.5 - 10.5 mg/dLProMedica Health SystemChloride [Moles/Vol]115 mmol/LHigh98 - 109 mmol/LProMedica Health SystemCO2 [Moles/Vol]22 mmol/L22 - 32 mmol/LProMedica Health SystemCreatinine [Mass/Vol]0.49 mg/dL0.40 - 1.00 mg/dLSumma Health [facility] CampusComment on above:METHOD TRACEABLE TO IDMS STANDARDEGFR Non-Race Dependent- [facility] HospitalComment on above:Reported eGFR is based on the CKD-EPI 2020 equation that does not use a race coefficient. EGFR not calculated due to patient's gender not being defined. Glucose [Mass/Vol]110 mg/wJKqvb08 - 99 mg/dLSumma Health [facility] Campus Interpretation and review of laboratory resultsAbnormalSumma Health [facility]ron Campus Potassium [Moles/Vol]3.8 mmol/L3.5 - 5.0 mmol/LPrSelect Medical OhioHealth Rehabilitation Hospital [facility] SystemSodium [Moles/Vol]144 mmol/L134 - 146 mmol/[facility] SystemUrea nitrogen [Mass/Vol]12 mg/dL5 - 27 mg/dLButler Memorial HospitalCBC WITH AUTO DIFFERENTIALon 60-22-5422EEFXYDVMJ ABSOLUTE COUNT (10*3/UL) BY AUTOMATED COUNT0.1 10*3/uLNormal0.0-0.2PCleveland Clinic Avon HospitalComment on above:Performed By: #### CBCA #### [facility] ([facility]) [address] [place] [address] VIRBASOPHILS RELATIVE PERCENT BY AUTOMATED COUNT0.5 %Normal [facility] HospitalComment on above:Performed By: #### CBCA #### [facility] ([facility]) [address] [place] [address] VIRCELLAVISION DIFFERENTIAL TYPEAUTOMATED DIFFERENTIALNormal [facility] HospitalComment on above:Performed By: #### CBCA #### [facility] ([facility]) [address] [place] [address] VIREosinophils (Bld) [#/Vol]0.0 10*3/uLNormal0.0-0.4[facility] HospitalComment on above:Performed By: #### CBCA #### [facility] ([facility]) [address] [place] [address] VIREOSINOPHILS RELATIVE PERCENT BY AUTOMATED COUNT0.4 %Normal [facility] HospitalComment on above:Performed By: #### CBCA #### [facility] ([facility]) [address] [place] [address] VIRErythrocyte distribution width (RBC) [Ratio]14.3 %Normal 11.5-15[facility] HospitalComment on above:Performed By: #### CBCA #### [facility] ([facility]) [address] [place] [address] VIRHematocrit (Bld) [Volume fraction]30.7 %Rle63-68UupJcdxps [facility] HospitalComment on above:Performed By: #### CBCA #### [facility] ([facility]) [address] [place] [address] VIRHemoglobin (Bld) [Mass/Vol]10.2 g/dLLow11.7-15.5[facility] HospitalComment on above:Performed By: #### CBCA #### [facility] ([facility]) [address] [place] [address] VIRLYMPHOCYTES ABSOLUTE COUNT (10*3/UL) BY AUTOMATED COUNT0.9 10*3/uLLow1.0-3.5ProMedOhioHealth Doctors Hospital HospitalComment on above:Performed By: #### CBCA #### [facility] ([facility]) [address] [place] [address] VIRLYMPHOCYTES RELATIVE PERCENT BY AUTOMATED COUNT8.6 %Normal [facility] HospitalComment on above:Performed By: #### CBCA #### [facility] ([facility]) [address] [place] [address] VIRMCH (RBC) [Entitic mass]30.5 pbUecjqm59-04CnaLptozx [facility] HospitalComment on above:Performed By: #### CBCA #### [facility] ([facility]) [address] [place] [address] VIRMCHC (RBC) [Mass/Vol]33.3 g/pELzfhqu51-69GcdEkhmlu [facility] HospitalComment on above:Performed By: #### CBCA #### [facility] ([facility]) [address] [place] [address] VIRMCV (RBC) [Entitic vol]92 nUVziqzy43-149HofLeogxv [facility] HospitalComment on above:Performed By: #### CBCA #### [facility] ([facility]) [address] [place] [address] VIRMONOCYTES ABSOLUTE COUNT (10*3/UL) BY AUTOMATED COUNT0.7 10*3/uLNormal0.0-0.9ProPomerene Hospital HospitalComment on above:Performed By: #### CBCA #### [facility]) [address] [place] [address] VIRMONOCYTES RELATIVE PERCENT BY AUTOMATED COUNT6.4 %Normal ProMDetwiler Memorial Hospital HospitalComment on above:Performed By: #### CBCA #### [facility]) [address] [place] [address] VIRNEUTROPHILS ABSOLUTE COUNT BY AUTOMATED COUNT9.1 10*3/uLHigh 1.5-6.6ProPomerene Hospital HospitalComment on above:Performed By: #### CBCA #### [facility]) [address] [place] [address] VIRNEUTROPHILS RELATIVE PERCENT BY AUTOMATED COUNT84.1 %Normal ProMDetwiler Memorial Hospital HospitalComment on above:Performed By: #### CBCA #### [facility]) [address] [place] [address] VIRPlatelet mean volume (Bld) [Entitic vol]10.4 fLNormal7-12 [facility] HospitalComment on above:Performed By: #### CBCA #### [facility] ([facility]) [address] [place] [address] VIRPlatelets (Bld) [#/Vol]109 10*3/tWJjn847-252UhmFdugssSelect Medical Specialty Hospital - TrumbullComment on above:Performed By: #### CBCA #### [facility] ([facility]) [address] [place] [address] VIRRBC COUNT3.35 X10E12/LLow3.8-5.2[facility] Comment on above:Performed By: #### CBCA #### [facility] ([facility]) [address] [place] [address] VIRWBC (Bld) [#/Vol]10.8 10*3/uLNormal4-11[facility] HospitalComment on above:Performed By: #### CBCA #### [facility] ([facility]) [address] [place] [id number] VIRCBC auto differentialon [id number] (Bld) [#/Vol]0.1 10*3/uL0.0 - 0.2 10*3/uLSumma Health [facility] CampusBasophils/100 WBC (Bld)0.5 % [facility] CampusDifferential cell count method Nom (Bld)AUTOMATED DIFFERENTIALSumma Health Akron CampusEosinophils (Bld) [#/Vol]0 10*3/uL0.0 - 0.4 10*3/uLSumma Health Akron CampusEosinophils/100 WBC (Bld)0.4 %[facility] CampusErythrocyte distribution width (RBC) [Ratio]14.3 %11.5 - 15 %[facility] CampusHematocrit (Bld) [Volume fraction]30.7 %Low35 - 47 %[facility] CampusHemoglobin (Bld) [Mass/Vol]10.2 g/dLLow11.7 - 15.5 g/dLSumma Health Akron CampusInterpretation and review of laboratory resultsAbnormalSumma Health Akron CampusLymphocytes (Bld) [#/Vol]0.9 10*3/uLLow1.0 - 3.5 10*3/uLSumma Health Akron CampusLymphocytes/100 WBC (Bld)8.6 %[facility]H (RBC) [Entitic mass]30.5 pg27 - 34 pgPPremier Health Miami Valley Hospital SouthMCHC (RBC) [Mass/Vol]33.3 g/dL32 - 36 g/dLSumma Health Akron CampusMCV (RBC) [Entitic vol]92 fL80 - 100 fL [facility] CampusMonocytes (Bld) [#/Vol]0.7 10*3/uL0.0 - 0.9 10*3/uL [facility] CampusMonocytes/100 WBC (Bld)6.4 %[facility] Neutrophils (Bld) [#/Vol]9.1 10*3/uLHigh1.5 - 6.6 10*3/uLSumma Health [facility] Campus Neutrophils/100 WBC (Bld)84.1 %[facility] CampusPlatelet mean volume (Bld) [Entitic vol]10.4 fL7 - 12 [facility] HospitalPlatelets (Bld) [#/Vol]109 10*3/uLKettering Health MiamisburgRBC (Bld) [#/Vol]3.35 10*6/[facility] HospitalWBC LM Ql (Sput)10.8[facility] CK TOTALon 30-51-9380BKC7816 U/MGorl98-567AjdXfmxilCleveland Clinic Medina HospitalComment on above:Performed By: #### CBCA #### [facility] ([facility]) [address] [place] [address] VIRCK Totalon 79-40-6641NK [Catalytic activity/Vol]1468 U/LHigh 24 - 170 U/[address] HospitalInterpretation and review of laboratory resultsAbnormalButler Memorial HospitalMYOGLOBIN, SERUMon 77-66-9390VGZKP OCJPLFCRW643.6 ng/qXPlyl52.3-65.8[facility] Comment on above:Performed By: #### FIBR #### [facility] ([facility]) [address] [place] [address] VIRMyoglobin, serumon 67-59-0389Klbhxoikwhscpj and review of laboratory resultsAbnormalProCleveland Clinic Fairview HospitalMyoglobin [Mass/Vol]216.6 ng/mL High14.3 - 65.8 ng/mLButler Memorial HospitalBASIC METABOLIC PANELon 21-85-0447Bdggl gap [Moles/Vol]8 mmol/LNormal5-15[facility] HospitalComment on above:Performed By: #### DSU #### [facility] ([facility]) [address] [place] [address] VIRCalcium [Mass/Vol]8.0 mg/dLLow8.5-10.5PCleveland Clinic Avon HospitalComment on above:Performed By: #### DSU #### [facility] ([facility]) [address] [place] [address] VIRChloride [Moles/Vol]111 mmol/DNgil35-185UppVvgnenSelect Medical Specialty Hospital - TrumbullComment on above:Performed By: #### DSU #### [facility] ([facility]) [address] [place] [address] VIRCO2 [Moles/Vol]23 mmol/MAzhzqa79-47HilNvuproCleveland Clinic Avon Hospital Comment on above:Performed By: #### DSU #### [facility] ([facility]) [address] [place] [address] VIRCreatinine [Mass/Vol]0.67 mg/dLNormal0.40-1.00[facility] HospitalComment on above:Result Comment: METHOD TRACEABLE TO IDMS STANDARDPerformed By: #### DSU #### [facility] ([facility]) [address] [place] [address] VIRGFR/1.73 sq M.predicted among non-blacks MDRD (S/P/Bld) [Vol rate/Area]85 mL/min/{1.73_m2}Normal>=60ProSelect Medical Specialty Hospital - TrumbullComment on above:Result Comment: Reported eGFR is based on the CKD-EPI 2020 equation that does not use a race coefficient. EGFR not calculated due to patient's gender not being defined.Performed By: #### DSU #### [facility] ([facility]) [address] [place] [address] VIRGlucose [Mass/Vol]146 mg/fWJspj22-69TexGxjily [place] HospitalComment on above:Performed By: #### DSU #### [facility] ([facility]) [address] [place] [address] VIRPotassium [Moles/Vol]4.0 mmol/LNormal3.5-5.0ProPomerene Hospital HospitalComment on above:Performed By: #### DSU #### [facility] ([facility]) [address] [place] [address] VIRSodium [Moles/Vol]142 mmol/VTyurqh260-565SenNzbnso [place] HospitalComment on above:Performed By: #### DSU #### [facility] ([facility]) [address] [place] [address] VIRUrea nitrogen [Mass/Vol]14 mg/dLNormal5-27ProPomerene Hospital HospitalComment on above:Performed By: #### DSU #### [facility] ([facility]) [address] [place] [address] VIRBEDSIDE GLUCOSEon 84-39-4811Fdcnusg [Mass/Vol]200 mg/dLHigh 65-99ProPomerene Hospital HospitalComment on above:Performed By: #### DSU #### [facility] ([facility]) [address] [place] [address] VIRBacteria identified Cx Nom (U)on 05-69-5715Qyffxkvp identified Aer cx Nom (Unsp spec)<10,000 ORGANISMS/mL NORMAL URO GENITAL TAIWO [facility] SystemProMedica [facility] SystemBasic Metabolic Panelon 05-17-2025 Anion gap [Moles/Vol]8 mmol/L5 - 15 mmol/LProMedica Health SystemCalcium [Mass/Vol]8 mg/dLLow8.5 - 10.5 mg/dLSumma Health [facility]ron CampusChloride [Moles/Vol] 111 mmol/LHigh98 - 109 mmol/[facility] SystemCO2 [Moles/Vol]23 mmol/L22 - 32 mmol/[facility] SystemCreatinine [Mass/Vol]0.67 mg/dL0.40 - 1.00 mg/dLSumma Health Akron CampusComment on above:METHOD TRACEABLE TO IDIA STANDARD EGFR Non-Race Pqlgdckhu62- [facility] HospitalComment on above:Reported eGFR is based on the CKD-EPI 2020 equation that does not use a race coefficient. EGFR not calculated due to patient's gender not being defined. Glucose [Mass/Vol]146 mg/cENfcv79 - 99 mg/dLSumma [facility] Campus Interpretation and review of laboratory resultsAbDannemora State Hospital for the Criminally Insane Potassium [Moles/Vol]4 mmol/L3.5 - 5.0 mmol/[facility] SystemSodium [Moles/Vol]142 mmol/L134 - 146 mmol/[facility] SystemUrea nitrogen [Mass/Vol]14 mg/dL5 - 27 mg/dLButler Memorial Hospital Bedside Glucose *Place/Obtain serum glucose if >500 per glucometer.on 05-17-2025 Glucose [Mass/Vol]200 mg/mEZwxa52 - 99 mg/dLSumma Health [facility] Campus Interpretation and review of laboratory resultsAbAgnesian HealthCareCBC WITH AUTO DIFFERENTIALon 98-89-1980NBPLCEIOL ABSOLUTE COUNT (10*3/UL) BY AUTOMATED COUNT0.0 10*3/uLNormal0.0-0.2PCleveland Clinic Avon HospitalComment on above:Performed By: #### CBCA #### [facility] ([facility]) [address] [place] [address] VIRBASOPHILS RELATIVE PERCENT BY AUTOMATED COUNT0.2 %Normal [facility] HospitalComment on above:Performed By: #### CBCA #### [facility] ([facility]) [address] [place] [address] VIRCELLAVISION DIFFERENTIAL TYPEAUTOMATED DIFFERENTIALNormal ProMDetwiler Memorial Hospital HospitalComment on above:Performed By: #### CBCA #### [facility] ([facility]) [address] [place] [address] VIREosinophils (Bld) [#/Vol]0.0 10*3/uLNormal0.0-0.4ProPomerene Hospital HospitalComment on above:Performed By: #### CBCA #### [facility] ([facility]) [address] [place] [address] VIREOSINOPHILS RELATIVE PERCENT BY AUTOMATED COUNT0.0 %Normal [facility] HospitalComment on above:Performed By: #### CBCA #### [facility] ([facility]) [address] [place] [address] VIRErythrocyte distribution width (RBC) [Ratio]14.5 %Normal 11.5-15ProPomerene Hospital HospitalComment on above:Performed By: #### CBCA #### [facility] ([facility]) [address] [place] [address] VIRHematocrit (Bld) [Volume fraction]33.3 %Mrf20-86KsoPwnlss [place] HospitalComment on above:Performed By: #### CBCA #### [facility] ([facility]) [address] [place] [address] VIRHemoglobin (Bld) [Mass/Vol]11.1 g/dLLow11.7-15.5PBlanchard Valley Health System [facility] HospitalComment on above:Performed By: #### CBCA #### [facility] ([facility]) [address] [place] [address] VIRLYMPHOCYTES ABSOLUTE COUNT (10*3/UL) BY AUTOMATED COUNT0.9 10*3/uLLow1.0-3.5PBlanchard Valley Health System [facility] HospitalComment on above:Performed By: #### CBCA #### [facility] ([facility]) [address] [place] [address] VIRLYMPHOCYTES RELATIVE PERCENT BY AUTOMATED COUNT6.1 %Normal [facility] HospitalComment on above:Performed By: #### CBCA #### [facility] ([facility]) [address] [place] [address] VIRMCH (RBC) [Entitic mass]30.2 yhVosvvy54-00VjhIlwjmn Santa HospitalComment on above:Performed By: #### CBCA #### [facility] ([facility]) [address] [place] [address] VIRMCHC (RBC) [Mass/Vol]33.2 g/vZVyewxi03-11LokRqcbht Santa HospitalComment on above:Performed By: #### CBCA #### [facility] ([facility]) [address] [place] [address] VIRMCV (RBC) [Entitic vol]91 fMXxnrvx99-083FmbPlphkl [place] HospitalComment on above:Performed By: #### CBCA #### [facility] ([facility]) [address] [place] [address] VIRMONOCYTES ABSOLUTE COUNT (10*3/UL) BY AUTOMATED COUNT0.9 10*3/uLNormal0.0-0.9ProOhiohealth Mansfield Hospitalca [place] HospitalComment on above:Performed By: #### CBCA #### [facility] ([facility]) [address] [place] [address] VIRMONOCYTES RELATIVE PERCENT BY AUTOMATED COUNT6.3 %Normal [facility] HospitalComment on above:Performed By: #### CBCA #### [facility] ([facility]) [address] [place] [address] VIRNEUTROPHILS ABSOLUTE COUNT BY AUTOMATED COUNT12.6 10*3/uL High1.5-6.6Pro[facility] HospitalComment on above:Performed By: #### CBCA #### [facility] ([facility]) [address] [place] [address] VIRNEUTROPHILS RELATIVE PERCENT BY AUTOMATED COUNT87.4 %Normal [facility] HospitalComment on above:Performed By: #### CBCA #### [facility] ([facility]) [address] [place] [address] VIRPlatelet mean volume (Bld) [Entitic vol]9.6 fLNormal7-12 [facility] HospitalComment on above:Performed By: #### CBCA #### [facility] ([facility]) [address] [place] [address] VIRPlatelets (Bld) [#/Vol]135 10*3/xILyt213-880BcgGoazxuCleveland Clinic Medina HospitalComment on above:Performed By: #### CBCA #### [facility] ([facility]) [address] [place] [address] VIRRBC COUNT3.66 X10E12/LLow3.8-5.2PC[facility] Comment on above:Performed By: #### CBCA #### [facility] ([facility]) [address] [place] [address] VIRWBC (Bld) [#/Vol]14.4 10*3/uLHigh4-11[facility] HospitalComment on above:Performed By: #### CBCA #### [facility] ([facility]) [address] [place] [address] VIRCBC auto differentialon 52-53-1177Stjxkeard (Bld) [#/Vol]0 10*3/uL0.0 - 0.2 10*3/uLProMedica University Hospitals [facility] SystemBasophils/100 WBC (Bld)0.2 % [facility] CampusDifferential cell count method Nom (Bld)AUTOMATED DIFFERENTIALSumma Health Akron CampusEosinophils (Bld) [#/Vol]0 10*3/uL0.0 - 0.4 10*3/uLProMediCleveland Clinic Hillcrest Hospital SystemEosinophils/100 WBC (Bld)0 %[facility] SystemErythrocyte distribution width (RBC) [Ratio]14.5 %11.5 - 15 %[facility] CampusHematocrit (Bld) [Volume fraction]33.3 %Low35 - 47 %[facility] CampusHemoglobin (Bld) [Mass/Vol]11.1 g/dLLow11.7 - 15.5 g/dLSumma Health [facility] CampusInterpretation and review of laboratory resultsAbnormalSumma Health Akron CampusLymphocytes (Bld) [#/Vol]0.9 10*3/uLLow1.0 - 3.5 10*3/uLSumma Health [facility] CampusLymphocytes/100 WBC (Bld)6.1 %[facility] HospitalH (RBC) [Entitic mass]30.2 pg27 - 34 pgPPremier Health Miami Valley Hospital SouthMCHC (RBC) [Mass/Vol]33.2 g/dL32 - 36 g/dLSumma Health [facility] CampusMCV (RBC) [Entitic vol]91 fL80 - 100 fL [facility] CampusMonocytes (Bld) [#/Vol]0.9 10*3/uL0.0 - 0.9 10*3/uL [facility] CampusMonocytes/100 WBC (Bld)6.3 %[facility] Neutrophils (Bld) [#/Vol]12.6 10*3/uLHigh1.5 - 6.6 10*3/uLSumma Health [facility] CampusNeutrophils/100 WBC (Bld)87.4 %[facility] CampusPlatelet mean volume (Bld) [Entitic vol]9.6 fL7 - 12 [facility] HospitalPlatelets (Bld) [#/Vol]135 10*3/uLLowSumma Health Akron CampusRBC (Bld) [#/Vol]3.66 10*6/uLLow [facility] CampusWBC LM Ql (Sput)14.4HFormerly [facility] 03-83-0124ACL6440 U/HRuhs66-849PydMfuvzpCleveland Clinic [facility]ina Hospital Comment on above:Performed By: #### CBCA #### [facility] ([facility]) [address] [place] [address] VIRCK Totalon 83-31-0015AL [Catalytic activity/Vol]1976 U/LHigh 24 - 170 U/LProMedica Health SystemCK [Catalytic activity/Vol]1293 U/LHigh24 - 170 U/LProMedica Health SystemCT BRAIN WO CONTon 92-66-3715XZ BRAIN WO CONTCT BRAIN WO CONT History: [...] MD on 05/17/2025 1:54 AMNormalProOhiohealth Mansfield Hospitalca [facility] HospitalCT Head WO contraston 05-17-2025 History: SDH, SAH [...] Pako Estevez MD on 05/17/2025 1:54 AM [employer] MediaRadiology Study observation (narrative)[employer] SystemCT Head WO contrastOrdered By: Pako Estevez on 41-26-5540CmsMdygjmIDEAglobal Work Phone: [employer] On Iceon 01-45-2317Xpytz TubeAuto Resulted [facility] HospitalWhatsNexx [facility] HospitalProOhiohealth Mansfield HospitalSeeWhy SystemIONIZED MAGNESIUMon 05-17-2025 Magnesium [Moles/Vol]0.78 mmol/LHigh0.45-0.74[facility] HospitalComment on above:Performed By: #### CBCA #### [facility] ([facility]) [address] [place] [address] VIRIonized magnesiumon 97-79-0572Ozzcraupnxrpsd and review of laboratory resultsAbnormalProAthens-Limestone Hospital Health SystemMagnesium Ionized ISE (Bld) [Moles/Vol]0.78 mmol/LHigh0.45 - 0.74 mmol/LProMedica Health SystemProMedica Health SystemLactate w/ Reflexon 05-98-9384Ukyfvjsjaersle and review of laboratory resultsNormalOhioHealth Grady Memorial Hospitalca Health SystemLactate (P cirilo) [Moles/Vol]2 mmol/L0.4 - 2.0 mmol/LProMedica Health SystemResult did not trigger repeat Lactate, re-order if needed.[facility] Systemedic Health SystemFulton County Health Center SystemMYOGLOBIN, SERUMon 86-98-0479LVBBX AOJOUJNJC837.7 ng/mDFyee46.3-65.8[facility] HospitalComment on above:Performed By: #### CBCA #### [facility] ([facility]) [address] [place] [address] VIRMagnesiumon 01-02-9113Jpjerwcel [Mass/Vol]1.7 mg/dLLow1.8 - 2.6 mg/dLFulton County Health Center SystemMyoglobin, serumon 30-03-2202Lonctayce [Mass/Vol]967.7 ng/nDYwfn60.3 - 65.8 ng/mLBrattleboro Memorial HospitalMedica Health SystemMyoglobin [Mass/Vol]1106.1 ng/tHDwzp43.3 - 65.8 ng/mLFulton County Health Center SystemNo Panel Informationon 28-63-4089Lakimqxmuazovc and review of laboratory resultsAbnormal [facility] Health SystemProMedica Health SystemInterpretation and review of laboratory resultsAbnormalProMedica Health SystemProOhiohealth Mansfield Hospitalca Health System Phosphoruson 24-61-5504Umcksiasimqldy and review of laboratory resultsNormal [facility] Health SystemPhosphate [Mass/Vol]2.8 mg/dL2.4 - 4.9 mg/dLBrattleboro Memorial HospitalMedica Health SystemABO Rh Repeaton 27-23-7667OBL and Rh group Nom (Bld)OProMedica Health SystemABO and Rh group Nom (Bld)PositiveProCleveland Clinic Fairview HospitalProAthens-Limestone Hospital Health SystemAMYLASEon 80-30-7024Qqanonp [Catalytic activity/Vol]54 U/LNormal 28-100[facility] HospitalComment on above:Performed By: #### AMYL #### [facility]) [address] [place] [address] VIRAPTTon 74-48-7977gCEP Coag (PPP) [Time]24 [facility] CenterInterpretation and review of laboratory resultsAbnoAtrium Health PinevilleaPTT Coag (Bld) [Time]24 iJtp03-21ScvHfgeanCleveland Clinic Medina HospitalComment on above:Performed By: #### PTT #### [facility] ([facility]) [address] [place] [address] VIRAmylaseon 46-84-6670Eprukao (S/P/Bld) [Catalytic activity/Vol]54 U/L28 - 100 U/LProMedProvidence HospitalBLOOD CULTUREon 05-16-2025 Bacteria identified Cx Nom (Bld)CULTURE RESULTS NO GROWTH 5 DAYSNoHarrison Community HospitalComment on above:Order Comment: *SIRS Criteria: (must display [...] may be affected.Performed By: #### CBCA #### [facility]) [address] [place] [address] VIRCBC WITH AUTO DIFFERENTIALon 99-55-1903LPDZMRWJX ABSOLUTE COUNT (10*3/UL) BY AUTOMATED COUNT0.0 10*3/uLNormal0.0-0.2ProMedOhioHealth Doctors Hospital HospitalComment on above:Performed By: #### CBCA #### [facility] ([facility]) [address] [place] [address] VIRBASOPHILS RELATIVE PERCENT BY AUTOMATED COUNT0.2 %Normal [facility] HospitalComment on above:Performed By: #### CBCA #### [facility] ([facility]) [address] [place] [address] VIRCELLAVISION DIFFERENTIAL TYPEAUTOMATED DIFFERENTIALNormal [facility] HospitalComment on above:Performed By: #### CBCA #### [facility] ([facility]) [address] [place] [address] VIREosinophils (Bld) [#/Vol]0.0 10*3/uLNormal0.0-0.4ProOhiohealth Mansfield Hospitalca [place] HospitalComment on above:Performed By: #### CBCA #### [facility] ([facility]) [address] [place] [address] VIREOSINOPHILS RELATIVE PERCENT BY AUTOMATED COUNT0.0 %Normal [facility] HospitalComment on above:Performed By: #### CBCA #### [facility] ([facility]) [address] [place] [address] VIRErythrocyte distribution width (RBC) [Ratio]14.3 %Normal 11.5-15[facility] HospitalComment on above:Performed By: #### CBCA #### [facility] ([facility]) [address] [place] [address] VIRHematocrit (Bld) [Volume fraction]37.2 %Fluyzg60-06XmaEnvbhf [place] HospitalComment on above:Performed By: #### CBCA #### [facility] ([facility]) [address] [place] [address] VIRHemoglobin (Bld) [Mass/Vol]12.4 g/pWFfwhhq66.7-15.5Pro[facility]ica [facility] [place] HospitalComment on above:Performed By: #### CBCA #### [facility] ([facility]) [address] [place] [address] VIRLYMPHOCYTES ABSOLUTE COUNT (10*3/UL) BY AUTOMATED COUNT0.5 10*3/uLLow1.0-3.5ProMedOhioHealth Doctors Hospital HospitalComment on above:Performed By: #### CBCA #### [facility] ([facility]) [address] [place] [address] VIRLYMPHOCYTES RELATIVE PERCENT BY AUTOMATED COUNT3.3 %Normal [facility] HospitalComment on above:Performed By: #### CBCA #### [facility] ([facility]) [address] [place] [address] VIRMCH (RBC) [Entitic mass]30.5 ukMybfrk64-82BqmLtxxdt [place] HospitalComment on above:Performed By: #### CBCA #### [facility] ([facility]) [address] [place] [address] VIRMCHC (RBC) [Mass/Vol]33.4 g/uNSbuqpr99-21VkxWjyfdd Santa HospitalComment on above:Performed By: #### CBCA #### [facility] ([facility]) [address] [place] [address] VIRMCV (RBC) [Entitic vol]91 eCIbrcol67-542PazTfclqv [place] HospitalComment on above:Performed By: #### CBCA #### [facility] ([facility]) [address] [place] [address] VIRMONOCYTES ABSOLUTE COUNT (10*3/UL) BY AUTOMATED COUNT0.9 10*3/uLNormal0.0-0.9Pro[facility]ica [place] HospitalComment on above:Performed By: #### CBCA #### [facility] ([facility]) [address] [place] [address] VIRMONOCYTES RELATIVE PERCENT BY AUTOMATED COUNT5.2 %Normal [facility] HospitalComment on above:Performed By: #### CBCA #### [facility] ([facility]) [address] [place] [address] VIRNEUTROPHILS ABSOLUTE COUNT BY AUTOMATED COUNT14.9 10*3/uL High1.5-6.6ProOhiohealth Mansfield Hospitalca [place] HospitalComment on above:Performed By: #### CBCA #### [facility] ([facility]) [address] [place] [address] VIRNEUTROPHILS RELATIVE PERCENT BY AUTOMATED COUNT91.3 %Normal [facility] HospitalComment on above:Performed By: #### CBCA #### [facility] ([facility]) [address] [place] [address] VIRPlatelet mean volume (Bld) [Entitic vol]9.8 fLNormal7-12 [facility] HospitalComment on above:Performed By: #### CBCA #### [facility] ([facility]) [address] [place] [address] VIRPlatelets (Bld) [#/Vol]155 10*3/cFDcifxz084-234MsiXptoql [place] HospitalComment on above:Performed By: #### CBCA #### [facility] ([facility]) [address] [place] [address] VIRRBC COUNT4.08 X10E12/LNormal3.8-5.2[facility] Comment on above:Performed By: #### CBCA #### [facility] ([facility]) [address] [place] [address] VIRWBC (Bld) [#/Vol]16.3 10*3/uLHigh4-11ProOhiohealth Mansfield Hospitalca [place] HospitalComment on above:Performed By: #### CBCA #### [facility] ([facility]) [address] [place] [address] VIRCBC auto differentialon 03-46-2930Nbwrtldad (Bld) [#/Vol]0 10*3/uL0.0 - 0.2 10*3/uLSumma Health Akron CampusBasophils/100 WBC (Bld)0.2 % [facility] CampusDifferential cell count method Nom (Bld)AUTOMATED DIFFERENTIALSumma Health Akron CampusEosinophils (Bld) [#/Vol]0 10*3/uL0.0 - 0.4 10*3/uLSumma Health [facility] CampusEosinophils/100 WBC (Bld)0 %[facility] CampusErythrocyte distribution width (RBC) [Ratio]14.3 %11.5 - 15 %[facility] CampusHematocrit (Bld) [Volume fraction]37.2 %35 - 47 %[facility] CampusHemoglobin (Bld) [Mass/Vol]12.4 g/dL11.7 - 15.5 g/dLSumma Health Akron CampusInterpretation and review of laboratory resultsAbnormalSumma Health Akron CampusLymphocytes (Bld) [#/Vol]0.5 10*3/uLLow1.0 - 3.5 10*3/uLSumma Health Akron CampusLymphocytes/100 WBC (Bld)3.3 %[facility] CampusMCH (RBC) [Entitic mass]30.5 pg27 - 34 [facility]burgMCHC (RBC) [Mass/Vol]33.4 g/dL32 - 36 g/dLSumma Health Akron CampusMCV (RBC) [Entitic vol]91 fL80 - 100 [facility] HospitalMonocytes (Bld) [#/Vol]0.9 10*3/uL0.0 - 0.9 10*3/uLSumma Health [facility] CampusMonocytes/100 WBC (Bld)5.2 %[facility] CampusNeutrophils (Bld) [#/Vol]14.9 10*3/uLHigh1.5 - 6.6 10*3/uLSumma Health Akron CampusNeutrophils/100 WBC (Bld)91.3 %[facility] CampusPlatelet mean volume (Bld) [Entitic vol] 9.8 fL7 - 12 [facility] HospitalPlatelets (Bld) [#/Vol]155 10*3/uL [facility] CampusRBC (Bld) [#/Vol]4.08 10*6/uLSumma Health Akron CampusW LM Ql (Sput)16.3HGrand View HealthCK TOTALon [id number] U/[id number] Santa HospitalComment on above: Performed By: #### DSU #### [facility] ([facility]) [address] [place] [address] VIRCOMPREHENSIVE METABOLIC PANELon [id number] [Mass/Vol] 3.6 g/dLNormal3.2-5.3ProMedOhioHealth Doctors Hospital HospitalComment on above:Performed By: #### CMP #### [facility] ([facility]) [address] [place] [address] VIRALP [Catalytic activity/Vol]102 U/RZotbhd33-141OzuFhcnal Santa HospitalComment on above:Performed By: #### CMP #### [facility] ([facility]) [address] [place] [address] VIRALT [Catalytic activity/Vol]11 U/LNormal<=31ProMedOhioHealth Doctors Hospital HospitalComment on above:Performed By: #### CMP #### [facility] ([facility]) [address] [place] [address] VIRAnion gap [Moles/Vol]11 mmol/LNormal5-15Pro[facility] [place] HospitalComment on above:Performed By: #### CMP #### [facility] ([facility]) [address] [place] [address] VIRAST [Catalytic activity/Vol]32 U/LNormal<=41[facility] [place] HospitalComment on above:Performed By: #### CMP #### [facility] ([facility]) [address] [place] [address] VIRBilirubin [Mass/Vol]0.4 mg/dLNormal0.3-1.2ProMedBarberton Citizens HospitalComment on above:Performed By: #### CMP #### [facility] ([facility]) [address] [place] [address] VIRCalcium [Mass/Vol]8.4 mg/dLLow8.5-10.5PCleveland Clinic Avon HospitalComment on above:Performed By: #### CMP #### [facility] ([facility]) [address] [place] [address] VIRChloride [Moles/Vol]107 mmol/POdfvau81-393DecSjxirc [place] HospitalComment on above:Performed By: #### CMP #### [facility] ([facility]) [address] [place] [address] VIRCO2 [Moles/Vol]23 mmol/PUawhnh79-31JfvXrgtuj [place] [facility] Comment on above:Performed By: #### CMP #### [facility] ([facility]) [address] [place] [address] VIRCreatinine [Mass/Vol]0.65 mg/dLNormal0.40-1.00ProSelect Medical Specialty Hospital - TrumbullComment on above:Result Comment: METHOD TRACEABLE TO IDMS STANDARDPerformed By: #### CMP #### [facility] ([facility]) [address] [place] [address] VIRGFR/1.73 sq M.predicted among non-blacks MDRD (S/P/Bld) [Vol rate/Area]85 mL/min/{1.73_m2}Normal>=60ProSelect Medical Specialty Hospital - TrumbullComment on above:Result Comment: Reported eGFR is based on the CKD-EPI 2020 equation that does not use a race coefficient. EGFR not calculated due to patient's gender not being defined.Performed By: #### CMP #### [facility] ([facility]) [address] [place] [address] VIRGlucose [Mass/Vol]158 mg/yVZiaf32-44TwtSyytvt [place] HospitalComment on above:Performed By: #### CMP #### [facility] ([facility]) [address] [place] [address] VIRPotassium [Moles/Vol]3.8 mmol/LNormal3.5-5.0ProPomerene Hospital HospitalComment on above:Performed By: #### CMP #### [facility] ([facility]) [address] [place] [address] VIRProtein [Mass/Vol]6.1 g/dLNormal6.0-8.0ProPomerene Hospital HospitalComment on above:Performed By: #### CMP #### [facility] ([facility]) [address] [place] [address] VIRSodium [Moles/Vol]141 mmol/PKmciir285-769ZokXswuya [place] HospitalComment on above:Performed By: #### CMP #### [facility] ([facility]) [address] [place] [address] VIRUrea nitrogen [Mass/Vol]15 mg/dLNormal5-27ProPomerene Hospital HospitalComment on above:Performed By: #### CMP #### [facility] ([facility]) [address] [place] [address] VIRComprehensive metabolic panelon 42-15-0058Pjumgxh [Mass/Vol] 3.6 g/dL3.2 - 5.3 g/dLProMedica Health [...] mmol/LProMedica Health SystemCO2 [Moles/Vol]23 mmol/L22 - 32 mmol/LPrPlatte Valley Medical Center Health SystemCreatinine [Mass/Vol]0.65 mg/dL0.40 - 1.00 mg/dLSumma Health Akron CampusComment on above: METHOD TRACEABLE TO IDMS STANDARDEGFR Non-Race Lfbkbbzgn02- [facility] HospitalComment on above:Reported eGFR is based on the CKD-EPI 2020 equation that does not use a race coefficient. EGFR not calculated due to patient's gender not being defined. Glucose [Mass/Vol]158 mg/uWYfzc08 - 99 mg/dLFulton County Health Center SystemPotassium [Moles/Vol]3.8 mmol/L3.5 - 5.0 mmol/LProMedica Health SystemProtein [Mass/Vol] 6.1 g/dL6.0 - 8.0 g/dLProHolzer Hospital SystemSodium [Moles/Vol]141 mmol/L134 - 146 mmol/[facility] SystemUrea nitrogen [Mass/Vol]15 mg/dL5 - 27 mg/dL [facility] CampusDRUG SCREEN, URINEon 98-99-9199VRQRIUIOZCY/METHAMP NegativeNormalNegativeCleveland Clinic Medina HospitalComment on above:Result Comment: AMPH/METH screening cut off = 1000 ng/mLPerformed By: #### DSU #### [facility] ([facility]) [address] [place] [address] VIRBARBITURATESNegativeNormalNegativeCleveland Clinic Medina Hospital Comment on above:Result Comment: Barbiturates screening cut off value = 200 ng/mLPerformed By: #### DSU #### [facility] ([facility]) [address] [place] [address] VIRBENZODIAZEPINESNegativeNormalNegativeCleveland Clinic Medina HospitalComment on above:Result Comment: Benzodiazepines screening cut off value = 200 ng/mLPerformed By: #### DSU #### [facility] ([facility]) [address] [place] [address] VIRCANNABINOIDSNegativeNormalNegativeCleveland Clinic Medina Hospital Comment on above:Result Comment: Cannabinoids/THC screening cut off value = 50 ng/mLPerformed By: #### DSU #### [facility] ([facility]) [address] [place] [address] VIRCOCAINE METABOLITENegativeNoformerly lenoir memorial hospitalNegMiddletown HospitalComment on above:Result Comment: Cocaine screening cut off value = 300 ng/mLPerformed By: #### DSU #### [facility] ([facility]) [address] [place] [address] VIRECSTASYNegativeNormalNegativeCleveland Clinic Medina Hospital Comment on above:Result Comment: Ecstasy screening cut off value = 500 ng/mL Performed By: #### DSU #### [facility] ([facility]) [address] [place] [address] VIRMETHADONENegativeNormalNegativeCleveland Clinic Medina Hospital Comment on above:Result Comment: Methadone screening cut off value = 300 ng/mL. Performed By: #### DSU #### [facility] ([facility]) [address] [place] [address] VIROPIATESNegativeNoCleveland Clinic Mentor Hospital Comment on above:Result Comment: Opiates screening cut off value = 300 ng/mL This test is used for the detection of codeine, hydrocodone (>1000 ng/mL), morphine and hydromorphone (>900 ng/mL) in urine.Performed By: #### DSU #### [facility] ([facility]) [address] [place] [address] VIROXYCODONENegativeNormalNegMiddletown Hospital Comment on above:Result Comment: Oxycodone screening cut off value = 300 ng/mL This test is used for the detection of oxycodone and oxymorphone in urine.Performed By: #### DSU #### [facility] ([facility]) [address] [place] [address] VIRPHENCYCLIDINENegativeNoformerly lenoir memorial hospitalNegativeCleveland Clinic Medina Hospital Comment on above:Result Comment: Phencyclidine screening cut off value = 25 ng/mLPerformed By: #### DSU #### [facility] ([facility]) [address] [place] [address] VIRDrug Screen, Urineon 38-95-3477Ygrbbnktlwyv Screen method >1000 ng/mL Ql (U)NegativeNegativeProMedica Health SystemComment on above: AMPH/METH screening cut off = 1000 ng/mLBarbiturates Screen Ql (U)Negative NegativeProAthens-Limestone Hospital Health SystemComment on above:Barbiturates screening cut off value = 200 ng/mLBenzodiazepines Ql (U)NegativeNegativeBrattleboro Memorial HospitalMedica Health System Comment on above:Benzodiazepines screening [...] above:Cannabinoids/THC screening cut off value = 50 ng/mLFulton County Health Center SystemETHANOLon 33-83-1210Obazprl [Mass/Vol]mg/dLNormal <=0.080Cleveland Clinic Medina HospitalComment on above:Result Comment: This report is intended for use in clinical monitoring or management of patients.Performed By: #### ALCO #### [facility] ([facility]) [address] [place] [address] VIREthanolon 67-82-8661Tftvvob Ql (U)g/dLNINF - 0.080 g/dL [facility] CampusComment on above:This report is intended for use in clinical monitoring or management of patients. FIBRINOGENon 85-46-4449SMQAQSLTHZ580 mg/sEBbcqfp858-473JddSemqbiCleveland Clinic Medina Hospital Comment on above:Performed By: #### FIBR #### [facility] ([facility]) [address] [place] [address] VIRFibrinogenon 89-17-7466Lawivjvcnl Coagulation.derived (PPP) [Mass/Vol]358 mg/dL190 - 480 mg/dLSumma Health Akron CampusLACTATE W/ REFLEXon 03-34-9295SQHJACU W/REFLEX2.0 mmol/LNormal0.4-2.0[facility] Comment on above:Order Comment: Result did not trigger repeat Lactate,re-order if needed.Performed By: #### DSU #### [facility] ([facility]) [address] [place] [address] VIRLIPASEon 28-19-0202Iggmia [Catalytic activity/Vol]U/LLow 11-82C[facility] Medina HospitalComment on above:Performed By: #### LIPA #### [facility] ([facility]) [address] [place] [address] VIRLipaseon 25-11-2899Gvbuxd [Catalytic activity/Vol]U/LLow11 - 82 U/LProMedica Health SystemMAGNESIUMon 09-70-7531Pnplikfwz [Mass/Vol]1.7 mg/dL Low1.8-2.6ProPomerene Hospital HospitalComment on above:Performed By: #### DSU #### [facility] ([facility]) [address] [place] [address] VIRMYOGLOBIN, SERUMon 42-37-0359SLJFI LOLGXYLUZ0160.1 ng/mLHigh 14.3-65.8ProPomerene Hospital HospitalComment on above:Performed By: #### DSU #### [facility] ([facility]) [address] [place] [address] VIRNo Panel Informationon 20-15-7061Cndazmclpbpfkp and review of laboratory resultsNormCanonsburg Hospital SystemInterpretation and review of laboratory resultsAbnoWestfields Hospital and Clinic System Interpretation and review of laboratory resultsNoAtrium Health Pineville ProMEssentia Health SystemPHOSPHORUSon 24-82-9816Gtuherytg [Mass/Vol]2.8 mg/dL Normal2.4-4.9ProSelect Medical Specialty Hospital - TrumbullComment on above:Performed By: #### DSU #### [facility] ([facility]) [address] [place] [address] VIRPROTIME AND INRon 40-31-5323COT7.1Pjzkeb6.9-1.2PCleveland Clinic Avon HospitalComment on above:Performed By: #### PINR #### [facility] ([facility]) [address] [place] [address] VIRPT Coag (PPP) [Time]11.4 sNormal9.8-13.2PBlanchard Valley Health System [facility] HospitalComment on above:Performed By: #### PINR #### [facility] ([facility]) [address] [place] [address] VIRProtime & INRon 89-64-9274XQO Coag (Platelet poor plasma or blood) [Relative time]10.9 - 1.2PPremier Health Miami Valley Hospital SouthPT Coag (PPP) [Time]11.4 [facility] HospitalREPEATED ABORHon 52-69-2939FXV_DOELKXEuvwilHqfQqksbm Santa HospitalComment on above:Performed By: #### DSU #### [facility] ([facility]) [address] [place] [address] VIRRH_INTEPPositiveNormalProMedica Santa HospitalComment on above:Performed By: #### DSU #### [facility] ([facility]) [address] [place] [address] VIRTYPE AND SCREENon 39-78-3180KPX_KPJLKHUklffdZlmSbwdnq [place] HospitalComment on above:Performed By: #### DSU #### [facility] ([facility]) [address] [place] [address] VIRRH_INTEPPositiveNormalProMedica [place] HospitalComment on above:Performed By: #### DSU #### [facility] ([facility]) [address] [place] [address] VIRType and screen(includes indirect ellyn)on 89-53-8208VTB and Rh group Nom (Bld)OProMedCommunity Regional Medical Center SystemABO and Rh group Nom (Bld)Positive [facility] CampusBlood group antibody screen.cells I+II+III QlNegative [facility] SystemProOhiohealth Mansfield Hospitalca [facility] SystemURINALYSISon 91-30-2391Iigonslcv Ql (U)NegativeNormalNegativeProMedica [place] HospitalComment on above:Performed By: #### UA #### [facility] ([facility]) [address] [place] [address] VIRBLOOD/HGBModerateAbnormalNegativeProMedica [facility] Comment on above:Performed By: #### UA #### [facility] ([facility]) [address] [place] [address] VIRColor (U)YellowNormalYellowProMedica Santa HospitalComment on above:Performed By: #### UA #### [facility] ([facility]) [address] [place] [address] VIRGlucose Ql (U)NegativeNormalNegativeProMedica West Bloomfield HospitalComment on above:Performed By: #### UA #### [facility] ([facility]) [address] [place] [address] VIRKetones Ql (U)40 mg/dLAbnormalNegativeProMedica West Bloomfield HospitalComment on above:Performed By: #### UA #### [facility] ([facility]) [address] [place] [address] VIRLeukocyte esterase Test strip Ql (U)NegativeNormalNegative [facility] HospitalComment on above:Performed By: #### UA #### [facility] ([facility]) [address] [place] [address] VIRMUCOUSPresentAbnormalNoneProMedica West Bloomfield HospitalComment on above:Performed By: #### UA #### [facility] ([facility]) [address] [place] [address] VIRNitrite Ql (U)NegativeNormalNegativeProMedica [facility] Bloom[place] HospitalComment on above:Performed By: #### UA #### [facility] ([facility]) [address] [place] [address] VIRPH,URINE6.7Kofuaq6.0-8.5ProMedica [facility] HospitalComment on above:Performed By: #### UA #### [facility] ([facility]) [address] [place] [address] VIRProtein Ql (U)30 mg/dLAbnormalNegativeProMedica [facility] Bloomfield HospitalComment on above:Performed By: #### UA #### [facility] ([facility]) [address] [place] [address] VIRR.B.KWPHH6Wpky1-0McaHaodsa West Bloomfield HospitalComment on above: Performed By: #### UA #### [facility] ([facility]) [address] [place] [address] VIRSpecific gravity (U) [Rel density]1.802Jcrjeu9.003-1.035 [facility] County HospitalComment on above:Performed By: #### UA #### [facility] ([facility]) [address] [place] [address] VIRSQUAMOUS EPITHELIUM<^3Egzjih3-4JaxFkslccCleveland Clinic Avon Hospital Comment on above:Performed By: #### UA #### [facility] ([facility]) [address] [place] [address] VIRTURBIDITYClearNormalClearProSelect Medical Specialty Hospital - TrumbullComment on above:Performed By: #### UA #### [facility] ([facility]) [address] [place] [address] VIRUROBILINOGEN<1.1 eu/dLNormal<1.1 eu/dLProSelect Medical Specialty Hospital - TrumbullComment on above:Performed By: #### UA #### [facility] ([facility]) [address] [place] [address] VIRW.B.BUGWY3Bxplll8-7DubNgkjcd [place] HospitalComment on above:Performed By: #### UA #### [facility] ([facility]) [address] [place] [address] VIRURINE CULTUREon 97-07-5163Kpquatir identified Cx Nom (U) CULTURE RESULTS <10,000 ORGANISMS/mL NORMAL URO GENITAL FLORANormalCleveland Clinic Medina Hospital Comment on above:Performed By: #### CBCA #### [facility] ([facility]) [address] [place] [address] VIRUrinalysisOrdered By: Brooke Fraga on 91-49-1422Rukybhnaj Ql (U)NegativeNegativeProMedica Health SystemColor (U)YellowYellowProMedica Health SystemEpithelial cells Auto (Urine sed) [#/Area]0 - 5ProMedica Health SystemGlucose (U) [Mass/Vol]NegativeNegativeProMedica Health SystemHemoglobin Auto test strip Ql (U)ModerateAbnormalNegWilson Memorial Hospital Interpretation and review of laboratory resultsAbnormalSumma Health [facility] Campus Ketones (U) [Mass/Vol]40 mg/dLAbnormalNegativeSumma Health Akron CampusLeukocyte esterase Auto test strip Ql (U)NegativeNegativeSumma Health Akron CampusMucus Ql (Urine sed)PresentAbnormNewYork-Presbyterian Lower Manhattan HospitalNitrite Auto test strip Ql (U)NegativeNegativeSumma Health Akron CampuspH (U)6 [pH]5.0 - 8.5PPremier Health Miami Valley Hospital SouthProtein (U) [Mass/Vol]30 mg/dLAbnormalNegativeSumma Health Akron CampusRBC Auto (Urine sed) [#/Area]6High0 - 5PFormerly Hoots Memorial Hospitalpecific gravity Refractometry automated (U) [Rel density]1.011.003 - 1.035Sum[facility] Health [facility] CampusTurbidity Ql (U)ClearClearPPremier Health Miami Valley Hospital SouthUrobilinogen Qn (U) {Allison'U}/dL<1.1 eu/dLSumma Health Akron CampusWBC Auto (Urine sed) [#/Area]30 - 5PJefferson Health NortheastUrine Cultureon 05-16-2025 Bacteria identified Cx Nom (U)ORGANISM: Klebsiella variicola (O:CORBIN) Etters Count >100,000 Aerobic ROYAL Charge (NMIC56) SUSCEPTIBILITY [...] RESISTANT TO ALL B-LACTAM DRUGS. PERFORMED BY: [place] [address] PATHOLOGIST TOP COLLAR MAKER RAVEN GARCIA M.D.[facility] Physician GroupComment on above: Performed By: #### CUU #### [place] [address] USAMM TOMOSYNTHESIS SCREENING BIon 18-94-5806Kvb[place], [place] [address] Mammography Report Signed Patient: MEI GUARDADO MR#: [id number] : 1940 Acct:[id number] Age/Sex: 85 / F ADM Date: 03/19/25 Loc: MAMMO Attending Dr: OCHOA MEDINA Ordering Physician: OCHOA MEDINA Results: Date of Service: 03/19/25 Follow Up: Procedure(s): MM tomosynthesis screening BI Accession Number(s): [id number] cc: OCHOA MEDINA Patient Name: MEI GUARDADO MR#: [id number] : 1940 Exam Date: 03/19/2025 Ordering Doctor: [...] radiation therapy Family Cancers None LOCATION: [facility] BREAST COMPOSITION: There are scattered [...] Signed By: 03/19/25 1539 DD/ 1538 TD/TT: Oil Rig Driller:TBHRadiology, Radiologist, MD - 03/19/2025 [facility] [place] [id number] Mammography Report Signed Patient: MEI GUARDADO MR#: [id number] : 1940 Acct:[id number] Age/Sex: 85 / F ADM Date: 03/19/25 Loc: MAMMO Attending Dr: OCHOA MEDINA Ordering Physician: OCHOA MEDINA Results: Date of Service: 03/19/25 Follow Up: Procedure(s): MM tomosynthesis screening BI Accession Number(s): [id number] cc: OCHOA MEDINA Patient Name: MEI GUARDADO MR#: [id number] : 1940 Exam Date: 03/19/2025 Ordering Doctor: [...] radiation therapy Family Cancers None LOCATION: [facility] BREAST COMPOSITION: There are scattered [...] Signed By: 03/19/25 1539 DD/ 1538 TD/TT: Oil Rig Driller: ANGEL [facility] Medical CenterRadiology Study observation (narrative)[facility] TOMOSYNTHESIS SCREENING BIOrdered By: Radiologist Radiology on 16-86-3393OFFDUniversity of Missouri Children's Hospital Work Phone: No Panel Informationon 67-39-6988RJKEUniversity of Missouri Children's HospitalCBC (INCLUDES DIFF/PLT)on 78-27-5659Fhuxzyubk (Bld) [#/Vol]0.013 10*3/uLNormal0-200 [facility] DiagnosticsComment on above:Performed By: #### 31254, 1599 #### [facility] [address] Qa Analyst: Caroline Garcia #### 7600 #### [facility] [address] , [address] [place] [address] Qa Analyst: Ricardo Garcia MDBasophils/100 WBC (Bld)0.2 %NormalQuest DiagnosticsComment on above:Performed By: #### 84919, 6399 #### [facility]ostics[facility] [address] [place] [address] Qa Analyst: Caroline Garcia #### 7600 #### [facility] [address] , [address] [place], [place] [address] Qa Analyst: Ricardo Merati MDEosinophils (Bld) [#/Vol]0.04 10*3/uLNormal 15-500Quest DiagnosticsComment on above:Performed By: #### 48443, 6399 #### [facility] [address] [place] [address] Qa Analyst: Caroline Garcia #### 7600 #### [facility] [address], [address] [place] [address] Qa Analyst: Ricardo Garcia MDEosinophils/100 WBC (Bld)0.6 %NormalQuest DiagnosticsComment on above:Performed By: #### 22718, 6399 #### [facility] [address] [place] [address] Qa Analyst: Caroline Garcia #### 7600 #### [facility] [address], [address] [place] [address] Qa Analyst: Ricardo Garcia MDErythrocyte distribution width (RBC) [Ratio] 14.2 %Xdtxiu01.0-15.0Quest DiagnosticsComment on above:Performed By: #### 56184, 6399 #### [facility] [address] [place] [address] Qa Analyst: Caroline Garcia #### 7600 #### [facility] [address], [address] [place] [address] Qa Analyst: Ricardo Garcia MDHematocrit (Bld) [Volume fraction]38.8 %Normal 35.0-45.0Quest DiagnosticsComment on above:Performed By: #### 68275, 6399 #### [facility] [address] [place] [address] Qa Analyst: Caroline Garcia #### 7600 #### [facility] [address], [address] [place] [address] Qa Analyst: Ricardo Garcia MDHemoglobin (Bld) [Mass/Vol]12.6 g/dLNormal 11.7-15.5Quest DiagnosticsComment on above:Performed By: #### 50908, 6399 #### [facility] [address] [place] [address] Qa Analyst: Caroline Garcia #### 7600 #### [facility] [address], [address] [place] [address] Qa Analyst: Ricardo Garcia MDLymphocytes (Bld) [#/Vol]0.878 10*3/uLNormal 850-3900Quest DiagnosticsComment on above:Performed By: #### 08724, 6399 #### [facility] [address] [place], [place] [address] Qa Analyst: Caroline Garcia #### 7600 #### [facility] [place] [address] Qa Analyst: Ricardo Garcia MDLymphocytes/100 WBC (Bld)13.1 %NormalQuest DiagnosticsComment on above:Performed By: #### 04499, 6399 #### [facility] [address] [place], [place] [address] Qa Analyst: Caroline Garcia #### 7600 #### [facility] [place] [address] Qa Analyst: Ricardo Garcia MDMCH (RBC) [Entitic mass]29.5 lkCovqho04.0-33.0 [facility] DiagnosticsComment on above:Performed By: #### 03498, 6399 #### [facility] [address] [place], [place] [address] Qa Analyst: Caroline Garcia #### 7600 #### [facility] [place] [address] Qa Analyst: Ricardo Garcia MDMCHC (RBC) [Mass/Vol]32.5 g/rLLbahgj17.0-36.0 [facility] DiagnosticsComment on above:Result Comment: For adults, a slight decrease in the calculated MCHC value (in the range of 30 to 32 g/dL) is most likely not clinically significant; however, it should be interpreted with caution in correlation with other red cell parameters and the patient's clinical condition.Performed By: #### 35752, 6399 #### [facility] [address] [place] [address] Qa Analyst: Caroline Garcia #### 7600 #### [facility] [place] [address] [address] , [address] [place] [address] Qa Analyst: Ricardo Garcia MDMCV (RBC) [Entitic vol]90.9 rDNwmkoj58.0-100.0 [facility] DiagnosticsComment on above:Performed By: #### 89817, 6399 #### [facility] [address] [place] [address] Qa Analyst: Caroline Garcia #### 7600 #### [facility] [place] [address] [address] , [address] [place] [address] Qa Analyst: Ricardo Garcia MDMonocytes (Bld) [#/Vol]0.382 10*3/uLNormal 200-950Quest DiagnosticsComment on above:Performed By: #### 41008, 6399 #### [facility] [address] [place] [address] Qa Analyst: Caroline Garcia #### 7600 #### [facility] [place] [address], [address] [place] [address] Qa Analyst: Ricardo Garcia MDMonocytes/100 WBC (Bld)5.7 %NormalQuest DiagnosticsComment on above:Performed By: #### 57370, 6399 #### [facility] [address] [place] [address] Qa Analyst: Caroline Garcia #### 7600 #### [facility] [place] [address], [address] [place] [address] Qa Analyst: Ricardo Garcia MDNeutrophils (Bld) [#/Vol]5.387 10*3/uLNormal 1500-7800Quest DiagnosticsComment on above:Performed By: #### 80384, 6399 #### [facility] [address] [place] [address] Qa Analyst: Caroline Garcia #### 7600 #### [facility] [place] [address] [address] , [address] [place] [address] Qa Analyst: Ricardo Garcia MDNeutrophils/100 WBC (Bld)80.4 %NormalQuest DiagnosticsComment on above:Performed By: #### 81948, 6399 #### [facility] [address] [place] [address] Qa Analyst: Caroline Garcia #### 7600 #### [facility] [place] [address] [address] , [address] [place] [address] Qa Analyst: Ricardo Garcia MDPlatelet mean volume (Bld) [Entitic vol]10.6 fLNormal7.5-12.5Quest DiagnosticsComment on above:Performed By: #### 79575, 6399 #### [facility] [address] [place] [address] Qa Analyst: Caroline Garcia #### 7600 #### [facility] [place] [address] [address] , [address] [place] [address] Qa Analyst: Ricardo Garcia MDPlatelets (Bld) [#/Vol]240 10*3/uLNormal 140-400Quest DiagnosticsComment on above:Performed By: #### 02907, 6399 #### [facility] [address] [place] [address] Qa Analyst: Caroline Garcia #### 7600 #### [facility] [address] , [address] [place] [address] Qa Analyst: Ricardo Garcia MDRBC (Bld) [#/Vol]4.27 10*6/uLNormal3.80-5.10 [facility] DiagnosticsComment on above:Performed By: #### 81701, 6399 #### [facility] [address] [place] [address] Qa Analyst: Caroline Garcia #### 7600 #### [facility] [address], [address] [place] [address] Qa Analyst: Ricardo Garcia [facility] ([facility]) [#/Vol]6.7 10*3/uLNormal3.8-10.8 [facility] DiagnosticsComment on above:Performed By: #### 81132, 6399 #### [facility] [address] [place], [place] [address] Qa Analyst: Caroline Garcia #### 7600 #### [facility] [address], [address] [place] [address] Qa Analyst: Ricardo Garcia MDCOMPREHENSIVE METABOLIC PANELon 09-14-2024 Albumin [Mass/Vol]3.6 g/dLNormal3.6-5.1Quest DiagnosticsComment on above: Performed By: #### 12057, 6399 #### [facility] [address] [place] [address] Qa Analyst: Caroline Garcia #### 7600 #### [facility] [address], [address] [place] [address] Qa Analyst: Ricardo Garcia MDAlbumin/Globulin [Mass ratio]1.5 {ratio}Normal 1.0-2.5Quest DiagnosticsComment on above:Performed By: #### 69702, 6399 #### [facility] [address] [place] [address] Qa Analyst: Caroline Garcia #### 7600 #### [facility] [address], [address] [place] [address] Qa Analyst: Ricardo Garcia MDALP [Catalytic activity/Vol]107 U/LNormal 37-153Quest DiagnosticsComment on above:Performed By: #### 69385, 6399 #### [facility] [address] [place] [address] Qa Analyst: Caroline Garcia #### 7600 #### [facility] [address], [address] [place] [address] Qa Analyst: Ricardo Garcia MDALT [Catalytic activity/Vol]12 U/LNormal6-29 [facility] DiagnosticsComment on above:Performed By: #### 08285, 6399 #### [facility] [address] [place] [address] Qa Analyst: Caroline Garcia #### 7600 #### [facility] [address], [address] [place] [address] Qa Analyst: Ricardo Garcia MDAST [Catalytic activity/Vol]16 U/EZyntdx34-12 [facility] DiagnosticsComment on above:Performed By: #### 92159, 6399 #### [facility] [address] [place], [place] [address] Qa Analyst: Caroline Garcia #### 7600 #### [facility] [address], [address] [place] [address] Qa Analyst: Ricardo Garcia MDBilirubin [Mass/Vol]0.4 mg/dLNormal0.2-1.2 Quest DiagnosticsComment on above:Performed By: #### 56135, 6399 #### [facility] [address] [place], [place] [address] Qa Analyst: Caroline Garcia #### 7600 #### [facility] [address], [address] [place] [address] Qa Analyst: Ricardo Garcia MDBUN/CREATININE RATIOSEE NOTE:Normal6-Quest DiagnosticsComment on above:Result Comment: Not Reported: BUN and Creatinine are within reference range.Performed By: #### 60794, 6399 #### [facility] [address] [place] [address] Qa Analyst: Caroline Garcia #### 7600 #### [facility] [place] [address], [address] [place] [address] Qa Analyst: Ricardo Garcia MDCalcium [Mass/Vol]8.7 mg/dLNormal8.6-10.4Quest DiagnosticsComment on above:Performed By: #### 24962, 6399 #### [facility] [address] [place] [address] Qa Analyst: Caroline Garcia #### 7600 #### [facility] [address], [address] [place] [address] Qa Analyst: Ricardo Garcia MDChloride [Moles/Vol]109 mmol/GTlosyb38-325 Quest DiagnosticsComment on above:Performed By: #### 00006, 6399 #### [facility] [address] [place] [address] Qa Analyst: Caroline Garcia #### 7600 #### [facility] [address], [address] [place] [address] Qa Analyst: Ricardo Garcia MDCO2 [Moles/Vol]28 mmol/CLzrgmw22-93Blxsh DiagnosticsComment on above:Performed By: #### 66979, 6399 #### [facility] [address] Qa Analyst: Caroline Garcia #### 7600 #### [facility] [place] [address] [address] , [address] [place] [address] Qa Analyst: Ricardo Garcia MDCreatinine [Mass/Vol]0.62 mg/dLNormal0.60-0.95 [facility] DiagnosticsComment on above:Performed By: #### 82314, 6399 #### [facility] [address] [place] [address] Qa Analyst: Caroline Garcia #### 7600 #### [facility] [place] [address] [address] , [address] [place] [address] Qa Analyst: Ricardo Garcia MDGFR/1.73 sq M.predicted among non-blacks MDRD (S/P/Bld) [Vol rate/Area]87 mL/min/{1.73_m2}Normal> OR = 60[facility] Comment on above:Performed By: #### 75681, 6399 #### [facility] [address] [place] [address] Qa Analyst: Caroline Garcia #### 7600 #### [facility] [address], [address] [place] [address] Qa Analyst: Ricardo Garcia MDGlobulin (S) [Mass/Vol]2.4 g/dLNormal1.9-3.7 Quest DiagnosticsComment on above:Performed By: #### 03408, 6399 #### [facility] [address] [place] [address] Qa Analyst: Caroline Garcia #### 7600 #### [facility] [address], [address] [place] [address] Qa Analyst: Ricardo Garcia MDGlucose [Mass/Vol]96 mg/hAOzvaow77-28Hpydr DiagnosticsComment on above:Result Comment: Fasting reference intervalPerformed By: #### 31817, 6399 #### [facility] [address] [place] [address] Qa Analyst: Caroline Garcia #### 7600 #### [facility] [address], [address] [place], [place] [address] Qa Analyst: Ricardo ROLDANotassium [Moles/Vol]3.9 mmol/LNormal3.5-5.3 [facility] DiagnosticsComment on above:Performed By: #### 76252, 6399 #### [facility] [address] [place] [address] Qa Analyst: Caroline Garcia #### 7600 #### [facility] [address], [address] [place] [address] Qa Analyst: Ricardo Garcia MDProtein [Mass/Vol]6.0 g/dLLow6.1-8.1Quest DiagnosticsComment on above:Performed By: #### 73785, 6399 #### [facility] [address] [place] [address] Qa Analyst: Caroline Garcia #### 7600 #### [facility] [address], [address] [place] [address] Qa Analyst: Ricardo Garcia MDSodium [Moles/Vol]143 mmol/DGfymeb089-644Nzntq DiagnosticsComment on above:Performed By: #### 40724, 6399 #### [facility] [address] Qa Analyst: Caroline Garcia #### 7600 #### [facility] [address], [address] [place] [address] Qa Analyst: Ricardo Garcia MDUrea nitrogen [Mass/Vol]16 mg/dLNormal7-25 [facility] DiagnosticsComment on above:Performed By: #### 24192, 6399 #### [facility] [address] [place] [address] Qa Analyst: Caroline Garcia #### 7600 #### [facility] [address], [address] [place] [address] Qa Analyst: Ricardo Garcia MDLIPID PANEL, STANDARD 25-06-8363Epfqwoazyki [Mass/Vol]276 mg/dLHigh<200Quest DiagnosticsComment on above:Order Comment: FASTING:YES FASTING: YESPerformed By: #### 20943, 6399 #### [facility] [address] [place] [address] Qa Analyst: Caroline Garcia #### 7600 #### [facility] [address], [address] [place] [address] Qa Analyst: Ricardo Garcia MDCholesterol in HDL [Mass/Vol]82 mg/dLNormal> OR = 50Quest DiagnosticsComment on above:Order Comment: FASTING:YES FASTING: YESPerformed By: #### 35488, 6399 #### [facility] [address] [place] [address] Qa Analyst: Caroline Garcia #### 7600 #### [facility] [address], [address] [place], [place] [address] Qa Analyst: Ricardo Garcia MDCholesterol in LDL [Mass/Vol]171 mg/dLHigh [...] LDL-C. Cameron REYNOLDS et al. SOL. 2013;310(19): 6847-8785 (http://education.Zenefits.BioTrove/faq/GEW579)Performed By: #### 32103, 4360 #### [facility] [address] [place] [address] Qa Analyst: Caroline Garcia #### 7600 #### [facility] [address], [address] [place], [place] [address] Qa Analyst: Ricardo Garcia MDCholesteroandrea.total/Cholesterol in HDL [Mass ratio]3.4 {ratio}Normal<5.0Quest DiagnosticsComment on above:Order Comment: FASTING:YES FASTING: YESPerformed By: #### 40099, 0099 #### [facility] [address] [place] [address] Qa Analyst: Caroline Garcia #### 7600 #### [facility] [address], [address] [place] [address] Qa Analyst: Ricardo Garcia MDNON HDL VNAHWGADQRG037 mg/dL (calc)High<130 Quest DiagnosticsComment on above:Order Comment: FASTING:YES FASTING: YESResult Comment: For patients with diabetes plus 1 major ASCVD risk factor, treating to a non-HDL-C goal of <100 mg/dL (LDL-C of <70 mg/dL) is considered a therapeutic option.Performed By: #### 07990, 6399 #### [facility] [address] [place] [address] Qa Analyst: Caroline Garcia #### 7600 #### [facility] [address], [address] [place], [place] [address] Qa Analyst: Ricardo Garcia MDTriglyceride [Mass/Vol]108 mg/dLNormal<150 [facility] DiagnosticsComment on above:Order Comment: FASTING:YES FASTING: YESPerformed By: #### 03359, 6399 #### [facility] [address] [place] [address] Qa Analyst: Caroline Garcia #### 7600 #### [facility] [address], [address] [place] [address] Qa Analyst: Ricardo Garcia MDVITAMIN D,25-OH,TOTAL,IAon 25-07-2944WDCEZPC D,25-OH,TOTAL,IA31 ng/oCKkzoyy15-904Ysdmy DiagnosticsComment on above:Result Comment: Vitamin D Status 25-OH Vitamin D: Deficiency: <20 ng/mL Insufficiency: 20 - 29 ng/mL Optimal: > or = 30 ng/mL For 25-OH Vitamin D testing on patients on D2-supplementation and patients for whom quantitation of D2 and D3 fractions is required, the QuestAssureD(TM) 25-OH VIT D, (D2,D3), LC/MS/MS is recommended: order code 25322 (patients >2yrs). See Note 1 Note 1 For additional information, please refer to http://education.Number 100/faq/SST519 (This link is being provided for informational/ educational purposes only.)Performed By: #### 38994, 6399 #### [facility] [address] [place] [address] Qa Analyst: Caroline Garcia #### 7600 #### [facility] [address] [facility], [address] [place] [address] Qa Analyst: Ricardo Garcia MDXR RIBS 2 VIEWS LEFT WITH CHEST ANTEROPOSTERIORon 19-32-5898EH RIBS 2 VIEWS LEFT WITH CHEST ANTEROPOSTERIORExam: [...] radiologist.NormalNot AvailableXR Ribs Views and Chest PAon 21-83-9008Vatr: XR RIBS 2 VIEWS LEFT WITH CHEST [...] signed and approved by the interpreting radiologist. [facility] HealthcareRadiology Study observation (narrative)[facility] HospitalXR Ribs Views and Chest PAOrdered By: Mikey Nguyen on 04-90-7583GNFT [employer] Work Phone: mm TOMOSYNTHESIS SCREENING BIon 07-93-1557Mbq [place] [address] Mammography Report Signed Patient: MEI GUARDADO MR#: [id number] : 1940 Acct:[id number] Age/Sex: 84 / F ADM Date: 03/18/24 Loc: MAMMO Attending Dr: OCHOA MEDINA Ordering Physician: OCHOA MEDINA Results: Date of Service: 03/18/24 Follow Up: Procedure(s): MM tomosynthesis screening BI Accession Number(s): [id number] cc: OCHOA MEDINA Patient Name: MEI GUARDADO MR#: [id number] : 1940 Exam Date: 03/18/2024 Ordering Doctor: [...] radiation therapy Family Cancers None LOCATION: [facility] BREAST COMPOSITION: There are scattered [...] M.D. Signed By: 03/18/24914 DD/ 3 TD/TT: Oil Rig Driller:TBHRadiology, RadiologistMD - 03/18/2024 [place] [address] Mammography Report Signed Patient: MEI GUARDADO MR#: [id number] : 1940 Acct:[id number] Age/Sex: 84 / F ADM Date: 03/18/24 Loc: MAMMO Attending Dr: OCHOA MEDINA Ordering Physician: OCHOA MEDINA Results: Date of Service: 03/18/24 Follow Up: Procedure(s): MM tomosynthesis screening BI Accession Number(s): [id number] cc: OCHOA MEDINA Patient Name: MEI GUARDADO MR#: [id number] : 1940 Exam Date: 03/18/2024 Ordering Doctor: [...] radiation therapy Family Cancers None LOCATION: [facility] BREAST COMPOSITION: There are scattered [...] M.D. Signed By: 03/18/24914 DD/ 3 TD/TT: Oil Rig Driller: [facility] HospitalRadiology Study observation (narrative)[facility] TOMOSYNTHESIS SCREENING BIOrdered By: Radiologist Radiology on 35-87-6067MQYUUniversity of Missouri Children's Hospital Work Phone: XR DEXA AXIAL SKELETONon 55-80-4108[address] [address] XRay Report Signed Patient: MEI GUARDADO MR#: [id number] : 1940 Acct:[id number] Age/Sex: 83 / F ADM Date: 09/08/23 Loc: RAD Attending Dr: OCHOA MEDINA Ordering Physician: OCHOA MEDINA Date of Service: 09/08/23 Procedure(s): XR DEXA axial skeleton Accession Number(s): [id number] cc: OCHOA MEDINA [address] [address] Patient Name: MEI GUARDADO MRN: [id number] date: 1940 Sex: F Assigned Patient Location: RAD Current Patient Location: RAD Accession/Order Number: [id number] Exam Date: 09/08/2023 08:00 Report Date: 09/08/2023 [...] Wolfe M.D. Signed By: 09/08/2352 DD/ TD/TT: Oil Rig Driller:TBHRadiology, Radiologist, - 09/08/2023 [place] [address] XRay Report Signed Patient: MEI GUARDADO MR#: [id number] : 1940 Acct:[id number] Age/Sex: 83 / F ADM Date: 09/08/23 Loc: SCOUT Attending Dr: OCHOA MEDINA Ordering Physician: OCHOA MEDINA Date of Service: 09/08/23 Procedure(s): XR DEXA axial skeleton Accession Number(s): [id number] cc: OCHOA MEDINA [place] [id number] Patient Name: MEI GUARDADO MRN: [id number] date: 1940 Sex: F Assigned Patient Location: RAD Current Patient Location: RAD Accession/Order Number: [id number] Exam Date: 09/08/2023 08:00 Report Date: 09/08/2023 [...] Wolfe M.D. 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 Admission #: [id number] Family : Order #: [id number] CLICK HERE TO VIEW EXAM RADIOLOGY REPORT [...] radiation therapy Family Cancers None LOCATION: [facility] BREAST COMPOSITION: Scattered areas fibroglandular density. FINDINGS: [...] by: Brisa Flores M.D. on 03/16/2022 at 11:42NormUniversity Hospitals Beachwood Medical CenterRESPIRATORY PANEL PLUSon 59-68-2132ZipqtkiyrjQtb detectedNormalNOT DETECTEDThe [facility] CenterComment on above:Performed By: #### RSPLUS #### [facility] [address] [place] [address] Dr. Khurram Gregorio ParapertusisNot detectedNormalNOT DETECTEDThe [facility] CenterComment on above:Performed By: #### RSPLUS #### [facility] [address] [place] [address] Dr. Khurram Gregorio PertussisNot detectedNormalNOT DETECTEDThe [facility] on above:Performed By: #### RSPLUS #### [facility] [address] [place] [address] Dr. Khurram MontielChlamydia PneumoniaeNot detectedNormalNOT DETECTEDThe [facility] CenterComment on above:Performed By: #### RSPLUS #### [facility] [address] [place] [address] [address] Khurram MontielCoronavirus 229ENot detectedNormalNOT DETECTEDThe [facility] CenterCommymichigan medical center sault on above:Performed By: #### RSPLUS #### [facility] [address] [place] [address] Dr. Khurram Wigginsronavirus ECQ1Ydc detectedNormalNOT DETECTEDThe [facility] CenterComment on above:Performed By: #### RSPLUS #### [facility] [address] [place] [address] Dr. Khurram MontielCoronavirus WN32Orw detectedNormalNOT DETECTEDThe [facility] CenterComment on above:Performed By: #### RSPLUS #### [facility] [address] [place] [address] Dr. Khurram MontielCoronavirus VC50Iwm detectedNormalNOT DETECTEDThe [facility] CenterComment on above:Performed By: #### RSPLUS #### [facility] [address] [place] [address] [address] Khurram Jones H1 2009Not detectedNormalNOT DETECTEDThe [facility] Medical CenterComment on above:Performed By: #### RSPLUS #### [facility] [address] [place] [address] [address] Khurram Jones H3Not detectedNormalNOT DETECTEDThe [facility] Comment on above:Performed By: #### RSPLUS #### [facility] [address] [place] [address] [address] Khurram Van BNot detectedNormalNOT DETECTEDThe [facility] Comment on above:Performed By: #### RSPLUS #### [facility] [address] [place] [address] [address] Khurram KelleyapneumovirusNot detectedNormalNOT DETECTEDThe [facility] Medical CenterCommymichigan medical center sault on above:Performed By: #### RSPLUS #### [facility] [address] [place] [address] [address] Khurram Fox. PneumoniaeNot detectedNormalNOT DETECTEDThe [facility] CenterComment on above:Performed By: #### RSPLUS #### [facility] [address] [place] [address] [address] Khurram Jennings 1Not detectedNormalNOT DETECTEDThe [facility] CenterComment on above:Performed By: #### RSPLUS #### [facility] [address] [place] [address] [address] Khurram Jennings 2Not detectedNormalNOT DETECTEDThe [facility] CenterComment on above:Performed By: #### RSPLUS #### [facility] [address] [place] [address] [address] Khurram Jennings 3Not detectedNormalNOT DETECTEDThe [facility] Medical CenterCommymichigan medical center sault on above:Performed By: #### RSPLUS #### [facility] [address] [place] [address] [address] Khurram Jennings 4Not detectedNormalNOT DETECTEDThe [facility] CenterComment on above:Performed By: #### RSPLUS #### [facility] [address] [address] [address] Khurram MontielRhino/EnterovirusNot detectedNormalNOT DETECTEDThe [facility] CenterComment on above:Performed By: #### RSPLUS #### [facility] [address] [place] [address] [address] Khurram Crowe Header 1RESPIRATORY PANEL: VIRUSESKind[facility] Comment on above:Performed By: #### RSPLUS #### [facility] [address] [place] [address] Dr. Khurram Crowe Header 2RESPIRATORY PANEL: BACTERIANoCleveland Clinic FoundationComment on above:Performed By: #### RSPLUS #### [facility] [address] [place] [address] Dr. Khurram SeoVNot detectedNormalNOT DETECTEDThe [facility] Medical CenterComment on above:Performed By: #### RSPLUS #### [facility] [address] [place] [address] Dr. Khurram Vitale-CoV-2 (COVID-19) RNA OKSANA+probe Ql (Unsp spec)Not detected NormalNOT DETECTEDThe [facility] Medical CenterComment on above:Performed By: #### RSPLUS #### [facility] [address] [place] [address] Dr. Khurram Quinn Quick Testingon 08-86-6567QifqyuScccevifYefif [facility] Other XR DEXA BONE DENSITYon 53-17-2842XA DEXA BONE DENSITY EXAMINATION: XR DEXA BONE [...] Electronically authenticated by: MOISES WOLFE Date: 2021-06-15 08:27[facility] Vital Signs Date TimeVital SignValuePerforming HlsfxegmbBytmqqcw61-46-2596 13:18-0400Body wnayee843.4 Jeffrey Medina MD Work Phone: NOTwo [facility] HospitalLajhvniquu50-88-0655 13:18-0400Body mass index (BMI) [Ratio]22.62 kg/k6MqnbrOchoa Medina MD Work Phone: NOTwo [facility] HospitalAtzcweadeu79-48-4282 13:18-0400Body msoxrj57.6 kg Ochoa Medina MD Work Phone: [phone]5587[facility] HospitalOulkdyxzxn94-49-8521 13:18-0400Diastolic blood csimqxcv74 mm[Hg]Ochoa Medina MD Work Phone: [phone] [facility] HospitalFquqyfvurs37-15-6261 13:18-0400Heart rate63 /min Ochoa Medina MD Work Phone: [phone])[facility]0265[facility] HospitalFnxanjifyq67-60-2273 13:18-1170VrO9% (BldA) [Mass fraction]97 %Ochoa Medina MD Work Phone: [phone] [facility] HospitalTzdirnuxnn18-86-9341 13:18-0400Systolic blood dwlwmcpa245 mm[Hg]Ochoa Medina MD Work Phone: [phone] [facility] HospitalNriysnfgrc10-32-6317 14:16-0400Body qfutrr885.4 Jeffrey Medina MD Work Phone: [phone] [facility] HospitalKqofchrkrr37-46-1337 14:16-0400Body mass index (BMI) [Ratio]22.94 kg/y1QpeprOchoa Medina MD Work Phone: [phone] [facility] HospitalIvzwuugxzs04-06-3222 14:16-0400Body blgsyk72.5 kg Ochoa Medina MD Work Phone: NOTwo [facility] HospitalYqfxbpgucf59-27-6931 14:16-0400Diastolic blood mm[Hg]Ochoa Medina MD Work Phone: NOTwo [facility] HospitalQjdqgqabbv74-60-3039 14:16-0400Heart rate92 /min Ochoa Medina MD Work Phone: [facility] HospitalGfiymkhklx71-31-8180 14:16-4551FsO5% (BldA) [Mass fraction]97 %Ochoa Medina MD Work Phone: [place] [address]Ylwgcnmbyu15-36-8945 14:16-0400Systolic blood cffknohy377 mm[Hg]Ochoa Medina MD Work Phone: 1(393)[facility]-[address] [place], [place] [address]Dpbdeyfsks67-26-8346 14:32-0400Body qjumkq700.4 cmKaren Hemmer PA Work Phone: 1(270)[facility] [place], [place] [address]Dcyzbxnide24-42-6436 14:32-0400Body mass index (BMI) [Ratio]22.45 kg/j8Flsya Hemmer PA Work Phone: [facility] HospitalWijbvufzvr12-12-7295 14:32-0400Body bnaljd75.14 kgKaren Hemmer PA Work Phone: 1(457)[facility]-[address] [place], [place] [address]Afmsqypfyk49-64-5488 14:32-0400Diastolic blood escrmxre93 mm[Hg]Buck Hemmer PA Work Phone: [facility] HospitalThsjkpwocc26-57-3836 14:32-0400Heart rate64 /min Buck Hemmer PA Work Phone: 1(839)[facility]-[address] [place], [place] [address]Nbquydznif41-57-9541 14:32-0400Respiratory rate16 /minKaren Hemmer PA Work Phone: 1(887)[facility]-40[address] HospitalKpavsmstpg02-26-6760 14:32-7356DmX9% (BldA) [Mass fraction]99 %Buck Hemmer PA Work Phone: [facility] HospitalRqtvzoquqv13-59-5224 14:32-0400Systolic blood zoporlzg09 mm[Hg]Buck Hemmer PA Work Phone: 1(846)424-[address] [place], [place] [address]Vqyqdqvggr04-51-6070 13:44-0400Diastolic blood mm[Hg]Wilfredo Moreau MD Work Phone: [facility]08-26-2025 13:44-0400Heart rate 86 /minDjuliana Moreau MD Work Phone: 1(543)590-[address] [place], [place] 7206808-26-2025 13:44-0400 Respiratory rate25 /Jr Moreau MD Work Phone: 1(067)[address] [place], [place] 7120908-26-2025 13:44-8001NbC5% (BldA) [Mass fraction]94 %Wilfredo Moreau MD Work Phone: 1(101)[address] [place], [place] 7120908-26-2025 13:44-0400Systolic blood isjncbnq520 mm[Hg]Wilfredo Moreau MD Work Phone: 1(010)[address] [place], [place] 7120908-26-2025 07:16-0400Body judhjwuzqyt37.9 [degF]Wilfredo Moreau MD Work Phone: 1(130)[address] [place], [place] 7120908-25-2025 01:00-0400Body mass index (BMI) [Ratio]27.15 kg/f5EmfigaWilfredo Moreau MD Work Phone: 1(004)[address] [place], [place] 7120908-25-2025 01:00-0400Body egmjwh16.3 kgWilfredo Moreau MD Work Phone: 1(364)[address] [place], [place] 7120908-23-2025 01:20-0400Body ulhptg690.6 cmWilfredo Moreau MD Work Phone: 1(408)[address] [place], [place] 7120906-24-2025 08:36-0400Diastolic blood aadugexm19 mm[Hg]Buck Hemjoan PA Work Phone: [facility] HospitalFehvhqwvcj18-00-0331 08:36-0400Systolic blood mm[Hg]Buck Hemmer PA Work Phone: [facility] HospitalNyqxnpusdv44-56-7200 08:23-0400Body hhqusv546.4 cmFredyen Hemmer PA Work Phone: [facility] HospitalXgmwlamosu72-38-4356 08:23-0400Body mass index (BMI) [Ratio]24.58 kg/j9Meguy Hemmer PA Work Phone: [facility] HospitalEjcpyuzfmj51-85-6518 08:23-0400Body cdiarn96.04 kgKaren Hemmer PA Work Phone: no[facility] HospitalLokihymlvq06-44-1471 08:23-0400Heart rate60 /min Buck Hemmer PA Work Phone: [facility] HospitalHssyrinsjp45-98-6872 08:23-9088QcE0% (BldA) [Mass fraction]97 %Buck Hemmer PA Work Phone: [facility] HospitalXpvnepusxa46-48-2758 09:37-0400Body .4 cmKaren Hemmer PA Work Phone: [facility] HospitalFtpxooefrz49-11-0303 09:37-0400Body mass index (BMI) [Ratio]25.24 kg/t5Mjxbg Hemmer PA Work Phone: [facility] HospitalBvlxvybpbz22-47-0841 09:37-0400Body temperature 97.7 [degF]Buck Hemmer PA Work Phone: [facility] HospitalGikapjyjrm80-48-7966 09:37-0400Body mahjre15.85 kgKaren Hemmer PA Work Phone: [facility] HospitalBpnxupltjx30-26-4366 09:37-0400Diastolic blood cqxuhyfv50 mm[Hg]Buck Hemmer PA Work Phone: [facility] HospitalJnzfbvzljm79-36-0408 09:37-0400Heart rate64 /min Buck Hemmer PA Work Phone: [facility] HospitalWzkkyysbwn04-93-1380 09:37-0400Respiratory rate16 /minKaren Hemmer PA Work Phone: [facility] HospitalKlbazkmvtd61-18-9877 09:37-3669UxG9% (BldA) [Mass fraction]99 %Buck Hemmer PA Work Phone: [facility] HospitalAemqabjpmo67-34-0381 09:37-0400Systolic blood yxljtmxa738 mm[Hg]Buck Hemmer PA Work Phone: [facility] HospitalMccuiqawww75-14-7149 13:07-0500Body .4 cmKaren Hemmer PA Work Phone: [facility] HospitalLruqfsfrgw78-12-6730 13:07-0500Body mass index (BMI) [Ratio]25.07 kg/l5Unyxx Hemmer PA Work Phone: noTwo [facility] HospitalMtencyiztv46-74-4042 13:07-0500Body njdrjy53.4 kg Buck Hemmer PA Work Phone: noTwo [facility] HospitalOybyeuqizl59-62-2326 13:07-0500Diastolic blood clguemws36 mm[Hg]Buck Hemmer PA Work Phone: [facility] HospitalZstfiyljdn02-36-3107 13:07-0500Heart rate55 /min Buck Hemmer PA Work Phone: [place] [address]Pjnetqqnic36-77-8183 13:07-9032VxL6% (BldA) [Mass fraction]98 %Buck Hemmer PA Work Phone: noTwo [facility] HospitalUcrtjspobh44-27-3302 13:07-0500Systolic blood kyvuroqa407 mm[Hg]Buck Hemmer PA Work Phone: [facility] HospitalKkwnfegeui71-39-1364 09:47-0500Body mass index (BMI) [Ratio]24.75 kg/g0Ndpdp Hemmer PA Work Phone: [facility] HospitalEhcfzdryxr46-87-7082 09:47-0500Body mvxarn71.49 kgKaren Hemmer PA Work Phone: noTwo [facility] HospitalGsxcipeohr26-22-4103 09:47-0500Diastolic blood mvuhejmm46 mm[Hg]Buck Hemmer PA Work Phone: [facility] HospitalYcbpnhvwrx43-63-4310 09:47-0500Heart rate55 /min Buck Hemmer PA Work Phone: [place] [address]Dwpdjaxyxv53-30-7900 09:47-0500Respiratory rate17 /minKaren Hemmer PA Work Phone: [facility] HospitalBmbyrsxzki44-36-4708 09:47-3220KuZ8% (BldA) [Mass fraction]99 %Buck Hemmer PA Work Phone: [place] [address]Ffuzegjulp01-53-6116 09:47-0500Systolic blood idzsgefh546 mm[Hg]Buck Hemmer PA Work Phone: [facility] HospitalDjbbzuxdww35-20-9848 09:03-0500Body mass index (BMI) [Ratio]25.4 kg/f8RwwpcgrDhara Rodriguez ELECTRONIC MUSICAL INSTRUMENT REPAIRER Work Phone: [facility] HospitalRmcqigipdu10-43-8925 09:03-0500Body temperature 97.81 [degF]Dhara Rodriguez ELECTRONIC MUSICAL INSTRUMENT REPAIRER Work Phone: [facility] HospitalXurnalxpxa70-34-6997 09:03-0500Body .31 kgDhara Rodriguez ELECTRONIC MUSICAL INSTRUMENT REPAIRER Work Phone: [place] [address]Pacdcvvyct31-06-1957 09:03-0500Diastolic blood vnamtjfg11 mm[Hg]Dhara Rodriguez ELECTRONIC MUSICAL INSTRUMENT REPAIRER Work Phone: [facility] HospitalDtjfzlvtlk62-38-2564 09:03-0500Heart rate78 /min Dhara Rodriguez ELECTRONIC MUSICAL INSTRUMENT REPAIRER Work Phone: [facility] HospitalSefgtdvzao89-89-6725 09:03-9427FeT1% (BldA) [Mass fraction]98 %Dhara Rodriguez ELECTRONIC MUSICAL INSTRUMENT REPAIRER Work Phone: [facility] HospitalFjwcllwxdk55-59-5426 09:03-0500Systolic blood ehujariw676 mm[Hg]Dhara Rodriguez ELECTRONIC MUSICAL INSTRUMENT REPAIRER Work Phone: [facility] HospitalZmwtikjdlv86-27-7287 13:38-0500Body ecxvkp527.4 cmHarrisongiselle Love ELECTRONIC MUSICAL INSTRUMENT REPAIRER Work Phone: NOTwo [facility] HospitalBfmjtysgmx29-47-6289 13:38-0500Body mass index (BMI) [Ratio]24.97 kg/m2Neena Love ELECTRONIC MUSICAL INSTRUMENT REPAIRER Work Phone: [facility] HospitalNvoqxhvuil60-01-3158 13:38-0500Body ihogmp19.13 kgNeena Love ELECTRONIC MUSICAL INSTRUMENT REPAIRER Work Phone: NOTwo [facility] HospitalOmijvevxao22-65-5117 13:38-0500Diastolic blood ynmajsbt70 mm[Hg]Neena Love ELECTRONIC MUSICAL INSTRUMENT REPAIRER Work Phone: NOTwo [facility] HospitalYxgxtaixah51-67-7954 13:38-0500Heart rate78 /min Neena Love ELECTRONIC MUSICAL INSTRUMENT REPAIRER Work Phone: [facility] HospitalWinxfiutay38-66-4358 13:38-0500Respiratory rate17 /minNeena Shamar ELECTRONIC MUSICAL INSTRUMENT REPAIRER Work Phone: [facility] HospitalVnrlamqhwd81-60-3524 13:38-9243HqR9% (BldA) [Mass fraction]97 %Neena Love ELECTRONIC MUSICAL INSTRUMENT REPAIRER Work Phone: [facility] HospitalFgttqkflgw62-79-9700 13:38-0500Systolic blood zvqudykl595 mm[Hg]Neena Love ELECTRONIC MUSICAL INSTRUMENT REPAIRER Work Phone: 1(032)[address] [place], [place] [address]Bphjusbjni60-61-4064 09:33-0500Body mass index (BMI) [Ratio]25.01 kg/f6SxqeyvJazzy Hutchins ELECTRONIC MUSICAL INSTRUMENT REPAIRER Work Phone: [facility] HospitalBlkmbjggpm33-33-2712 09:33-0500Body .22 kgJazzy Hutchins ELECTRONIC MUSICAL INSTRUMENT REPAIRER Work Phone: [facility] HospitalUeohhswaqr24-44-9630 09:33-0500Diastolic blood wuhzqyte08 mm[Hg]Jazzy Hutchins ELECTRONIC MUSICAL INSTRUMENT REPAIRER Work Phone: [facility] HospitalTramsesymv04-25-9325 09:33-0500Heart rate67 /min Jazzy Hutchins ELECTRONIC MUSICAL INSTRUMENT REPAIRER Work Phone: [facility] HospitalFgbmdwjafv83-43-4089 09:33-0500Respiratory rate16 /minSkolby Hutchins ELECTRONIC MUSICAL INSTRUMENT REPAIRER Work Phone: [facility] HospitalGmgvsgphcj14-81-9000 09:33-1298IoF7% (BldA) [Mass fraction]97 %Jazzy Hutchins ELECTRONIC MUSICAL INSTRUMENT REPAIRER Work Phone: [facility] HospitalOdndoanzqc29-66-9484 09:33-0500Systolic blood afpvkuru101 mm[Hg]Jazzy Hutchins ELECTRONIC MUSICAL INSTRUMENT REPAIRER Work Phone: [facility] HospitalJewdeamuws16-15-5009 11:35-0500Body mass index (BMI) [Ratio]24.78 kg/r4WeryiBuck Flores PA Work Phone: [facility] HospitalDmrmyhmjen57-20-8609 11:35-0500Body temperature 97.9 [degF]Buck Flores PA Work Phone: [facility] HospitalGjjovgqfny45-43-7789 11:35-0500Body umzkll11.58 kgFredyen Hemmer PA Work Phone: nowriplYslveddpqn28-31-8373 11:35-0500Diastolic blood mm[Hg]Buck Hemmer PA Work Phone: [employer] [employer] Zubmkrktul11-31-3307 11:35-0500Heart rate59 /min Buck Hemmer PA Work Phone: KrillionHwepnzxdie54-50-1815 11:35-0500Respiratory rate16 /minFredyen Hemmer PA Work Phone: KrillionTrppjdabmq00-38-3529 11:35-0268EgQ1% (BldA) [Mass fraction]99 %Buck Hemmer PA Work Phone: nowriplPfstwzmywl66-92-3765 11:35-0500Systolic blood tjuomvwi956 mm[Hg]Buck Hemmer PA Work Phone: noIA Sbcxrqedxs21-62-8695 14:00-0400Body .64 cmStepangelito Dotson Other [employer] Other 10-21-2021 14:00-0400Body mass index (BMI) [Ratio] 24.21 kg/f3SxppcupfvShannon Dotson Other [facility] [employer] Other 10-21-2021 14:00-0400Body cecwgiygpgf33.5 [degF] Shannon Dotosn Other [facility] Other 10-21-2021 14:00-0400Body yaoefg63.04 kgStcelestina Dotson Other [facility]Local [facility] Other 10-21-2021 14:00-0400Respiratory rate18 /minShunter Dotson Other [employer] Other 10-21-2021 14:00-7098PcZ6% (BldA) [Mass fraction]97 % Shannon Dotson Other [facility] [email or web address] Other Encounters Encounter DateEncounter TypeCare ProviderFacilityStart: 07-24-2025 End: 65-67-3298Cdyfwj outpatient visit 25 minutesOchoa Medina MD Work Phone: noms Paco Nunez MedinceComment on above:Chronic sinusitis, unspecified location (Primary Dx); Intracranial hemorrhage (HCC); Acute non-recurrent sinusitis, unspecified location; Cerebrospinal rhinorrheaStart: 07-24-2025 End: 79-20-0793fibevagbvzSFBUM M ALDANot AvailableStart: 06-30-2025 End: 38-73-4865Thsxjsarthur Medina MD Work Phone: noms Paco Nunez MedinceStart: 06-30-2025 End: 49-89-7729Ibjfffmargarito Medina MD Work Phone: noms Paco Nunez MedinceStart: 06-30-2025 End: 49-95-3332Cvhvau outpatient visit 25 minutesOchoa Medina MD Work Phone: noms Paco Nunez MedinceComment on above:Fall at home, initial encounter (Primary Dx); 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, unspecified laterality, subsequent encounter; Closed fracture of right side of base of skull with routine healing, subsequent encounter; Benign essential hypertensionStart: 06-30-2025 End: 62-67-2600kfdgcspcwzWKBHD M ALDANot AvailableStart: 06-18-2025 End: 06-30-1166Jojqab outpatient visit 25 minutesBuck THOMSON Work Phone: noms Paco Nunez MedinceComment on above: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 of 6 hours to 24 hours, unspecified laterality, sequela (Primary Dx); Closed fracture of right side of base of skull, sequela; Acute seasonal allergic rhinitis due to pollen; Fall, sequela; Need for influenza vaccination; Decreased appetite; Benign essential hypertensionStart: 06-18-2025 End: 47-04-4722bqfzzpwetaKFONN M HEMMERNot AvailableStart: 06-18-2025 End: 47-80-5471Ddwziy Suki THOMSON Work Phone: noms Paco Nunez MedinceStart: 06-18-2025 End: 48-07-5201Wieikm Suki THOMSON Work Phone: noms Paco Nunez MedinceStart: 05-29-2025 End: 79-45-3116Ogpajswlg Result EncounterGeneric External Data ProviderNOMS External Department UnsolicitedStart: 05-29-2025 End: 02-13-7308Dkxmovimy Result EncounterGeneric External Data ProviderNOMS External Department UnsolicitedStart: 32-05-5070cxodkdzhfgURG IN SYSTEM [facility] Ambulatory PPGStart: 05-16-2025 End: 17-01-7884Afdhzqramd and management of inpatientPakelin Pires MD Work Phone: [facility] GEN 9 AcuteComment on above:ICH (intracerebral hemorrhage) (CMS-HCC) (Primary Dx)Start: 05-16-2025 End: 99-32-5441czlgvjtzjhDvtl M [facility] Work Phone: Start: 05-16-2025 End: 08-64-1424Fmshgtmd ReferredSage Arzola DO-LAB [facility] Start: 05-16-2025 End: 21-77-5691Zenlwbiqk Result EncounterGeneric External Data ProviderNOMS External Department UnsolicitedStart: 05-16-2025 End: 28-80-1296Waufcnvaq Result EncounterGeneric External Data ProviderNOMS External Department UnsolicitedStart: 03-19-2025 End: 45-27-0305Nerwjrdij Result EncounterOchoa Medina MD Work Phone: noms External Department UnsolicitedStart: 03-19-2025 End: 53-25-9856Guqershqy Result EncounterOchoa Medina MD Work Phone: NOM[facility] External Department UnsolicitedStart: 03-18-2025 End: 67-17-6777Bwzsmi outpatient visit 15 minutesBuck Flores PA Work Phone: N[facility] CI FMComment on above:Benign essential hypertension (Primary Dx); Acute seasonal allergic rhinitis due to pollenStart: 03-18-2025 End: 77-16-0656oeekxaoiwgBVQZN M HEMMERNot AvailableStart: 01-06-2025 End: 01-83-4752Qhyriq Suki Flores PA Work Phone: [facility] CI FMStart: 01-06-2025 End: 87-77-1754Vkjodh Suki Flores PA Work Phone: [facility] CI FMStart: 01-06-2025 End: 56-90-5946Ynzmul outpatient visit 15 minutesBuck THOMSON Work Phone: [facility] CI FMComment on above:Acute non-recurrent ethmoidal sinusitis (Primary Dx)Start: 01-06-2025 End: 84-98-5402pcbuwydvyeYIILK M HEMMERNot AvailableStart: 11-18-2024 End: 51-40-2221Hkrolg flowsheetNatalie A Felter CONCRETE ENGINEER-AIRCRAFT MECHANIC ELECTRICAL AND RADIO Work Phone: NOMS SWS DERMStart: 11-18-2024 End: 38-62-2945Kkunof flowsheetNatalie A Felter CONCRETE ENGINEER-AIRCRAFT MECHANIC ELECTRICAL AND RADIO Work Phone: [facility] SWS DERMStart: 11-18-2024 End: 13-45-4080Xrblur outpatient visit 15 minutesNatalie A Felter CONCRETE ENGINEER-AIRCRAFT MECHANIC ELECTRICAL AND RADIO Work Phone: noms SWS DERMComment on above:Seborrheic keratosis; Actinic keratosis; Melanocytic nevus of trunk; Melanocytic nevus of left upper extremity; Melanocytic nevus of right upper extremity; Neurofibroma; Sebaceous hyperplasia of face; Onycholysis due to Pseudomonas infectionStart: 11-18-2024 End: 47-07-3250iblcuscsnfBHCRUAX A FELTERNot AvailableStart: 09-16-2024 End: 26-16-0025Mnfzcdnzf encounterBuck THOMSON Work Phone: [facility] CI FMStart: 09-12-2024 End: 80-65-9063Vmzuzr flowsDeyvi THOMSON Work Phone: [facility] CI FMStart: 09-12-2024 End: 07-66-1777Xxuvda flowsDeyvi THOMSON Work Phone: [facility] CI FMStart: 09-12-2024 End: 31-29-3982Ivfzvtn encounter procedureBuck THOMSON Work Phone: [facility] CI FMComment on above:Medicare annual wellness visit, subsequent (Primary Dx); Hypersomnia; Obstructive sleep apnea syndrome; [facility]ure ([facility]); Benign essential hypertension ([facility]); Diverticulosis; Cervical spondylosis; Age-related osteoporosis without current pathological fracture ([facility]/HCC); Acute seasonal allergic rhinitis due to pollen; Allergic conjunctivitis of both eyes; Hypercholesterolemia (CMS/HCC); Macular degeneration of both eyes, unspecified type; ACP (advance care planning)Start: 09-12-2024 End: 33-63-1476lkxhjlbzjdVCSGWAlireza De Leon AvailableStart: 09-09-2024 End: 53-80-8036Jvickf flowsDeyvi THOMSON Work Phone: [facility] CI FMStart: 09-09-2024 End: 16-42-2592Fylwky flowsDeyvi THOMSON Work Phone: [facility] CI FMStart: 09-09-2024 End: 81-03-9296Snlerl outpatient visit 15 minutesBuck THOMSON Work Phone: [facility] CI FMComment on above:Rib contusion, left, subsequent encounter (Primary Dx)Start: 09-09-2024 End: 72-00-1823thhhcugcwmTJAQY M HEMMERNot AvailableStart: 09-06-2024 End: 23-77-0516Yivvfe outpatient visit 25 minutesDhara Rodriguez ELECTRONIC MUSICAL INSTRUMENT REPAIRER Work Phone: N[facility] SWS UCComment on above:Fall, initial encounter (Primary Dx); Rib pain on left sideStart: 09-06-2024 End: 94-60-4597zkfxrpfqgeTHOGQXT N AUSTINNot AvailableStart: 09-04-2024 End: 02-79-2752Idztip Zay Love ELECTRONIC MUSICAL INSTRUMENT REPAIRER Work Phone: [phone] CI FMStart: 09-04-2024 End: 33-32-0324Uuoygx Zay Love ELECTRONIC MUSICAL INSTRUMENT REPAIRER Work Phone: [facility] CI FMStart: 09-04-2024 End: 51-16-1653Bsdvym outpatient visit 25 minutesKigiselle Love ELECTRONIC MUSICAL INSTRUMENT REPAIRER Work Phone: [facility] CI FMComment on above:Acute frontal sinusitis, recurrence not specified (Primary Dx)Start: 09-04-2024 End: 67-62-5682urlaxzouxnXSJLyly Mcintyre AvailableStart: 08-06-2024 End: 41-98-8004Lbdwqs flowsPriti Hutchins ELECTRONIC MUSICAL INSTRUMENT REPAIRER Work Phone: [facility] CI FMStart: 08-06-2024 End: 03-18-7172Vhosfl flowsPriti Hutchins ELECTRONIC MUSICAL INSTRUMENT REPAIRER Work Phone: [facility] CI FMStart: 08-06-2024 End: 14-20-0647Vnldvbp encounter procedureSkolby Hutchins ELECTRONIC MUSICAL INSTRUMENT REPAIRER Work Phone: [facility] CI FMComment on above:Acute non-recurrent pansinusitis (Primary Dx); Unspecified convulsions (CMS/HCC)Start: 08-06-2024 End: 39-92-7842compvodigxBUJKBI M SHIVELYNot AvailableStart: 06-17-2024 End: 36-45-3174Kcxumf flowsheetNatalie A Felter CONCRETE ENGINEER-AIRCRAFT MECHANIC ELECTRICAL AND RADIO Work Phone: N[facility] SWS DERMStart: 06-17-2024 End: 81-76-4593Pxgtvk flowsheetNatalie A Felter CONCRETE ENGINEER-AIRCRAFT MECHANIC ELECTRICAL AND RADIO Work Phone: [facility] SWS DERMStart: 06-17-2024 End: 76-19-7832Airqxt outpatient visit 10 minutesNatalie A Felter CONCRETE ENGINEER-AIRCRAFT MECHANIC ELECTRICAL AND RADIO Work Phone: [facility] DERMComment on above:Onycholysis due to Pseudomonas infectionStart: 06-03-2024 End: 81-46-0327Lomfqn flowsheetNatalie A Felter CONCRETE ENGINEER-AIRCRAFT MECHANIC ELECTRICAL AND RADIO Work Phone: NOJO [facility] DERMStart: 06-03-2024 End: 25-44-3527Qsffyo flowsheetNatalie A Felter CONCRETE ENGINEER-AIRCRAFT MECHANIC ELECTRICAL AND RADIO Work Phone: NOLU SWS DERMStart: 06-03-2024 End: 24-01-3597Ylvcri outpatient visit 15 minutesNatalie A Felter CONCRETE ENGINEER-AIRCRAFT MECHANIC ELECTRICAL AND RADIO Work Phone: noms [facility] DERMComment on above:Onycholysis due to Pseudomonas infectionStart: 05-14-2024 End: 27-37-6242Igxnqa flowsheetNatalie A Felter CONCRETE ENGINEER-AIRCRAFT MECHANIC ELECTRICAL AND RADIO Work Phone: NOFD [facility] DERMStart: 05-14-2024 End: 21-43-7653Czwgjm flowsheetNatalie A Felter CONCRETE ENGINEER-AIRCRAFT MECHANIC ELECTRICAL AND RADIO Work Phone: NOTU [facility] DERMStart: 05-14-2024 End: 30-22-0838Oqygdhbty encounterNatalie A Felter CONCRETE ENGINEER-AIRCRAFT MECHANIC ELECTRICAL AND RADIO Work Phone: NOHM [facility] DERMStart: 05-14-2024 End: 98-92-5039Qzijax outpatient visit 25 minutesNatalie A Felter CONCRETE ENGINEER-AIRCRAFT MECHANIC ELECTRICAL AND RADIO Work Phone: NOOQ [facility] DERMComment on above:Onycholysis due to Pseudomonas infection (Primary Dx)Start: 03-18-2024 End: 12-42-0405Ihgbzkqeu Result EncounterOchoa Medina MD Work Phone: noms External Department UnsolicitedStart: 03-18-2024 End: 25-45-2099Dwkpvzxjg Result EncounterOchoa Medina MD Work Phone: noms External Department UnsolicitedStart: 11-07-2023 Bamboo jaceDeyvi Flores PA Work Phone: [facility] CI FMStart: 72-63-1263Hzvozz jaceDeyvi Flores PA Work Phone: [facility] CI FMStart: 11-07-2023 End: 77-85-2025Jgpifg outpatient visit 15 minutesBuck Flores PA Work Phone: [facility] CI FMComment on above:Acute recurrent frontal sinusitis (Primary Dx)Start: 09-08-2023 End: 15-46-3589Wuspgsmor Result EncounterOchoa Medina MD Work Phone: [facility] External Department UnsolicitedStart: 09-08-2023 End: 39-30-2608Zijvnzckm Result EncounterOchoa Medina MD Work Phone: noms External Department UnsolicitedStart: 03-16-2022 End: 53-71-5016ynhmevhwvzKH RUGEN ALDAFacility:B5Bpfyp: 03-01-2022 End: 32-80-6084llgugeogxyQE RUGEN ALDAFacility:N6Emzdi: 07-15-2021 End: 33-12-0552kvdmnhszodGxmleakjp [place] Other [facility] [employer] Other Start: 05-13-5843Ezqcqq outpatient visit 15 minutes [facility] ClydeStart: 31-10-1131Dezrslkvo for general adult medical examination without abnormal findingsSouth [facility] HospitalStart: 06-15-2021 End: 42-63-1512wumcwmarffGT RUGEN ALDAFacility:V8Xvbno: 06-15-2021 End: 89-72-9441Rrwlwskha for general adult medical examination without abnormal findingsDR RUGEN ALDAFacility:H1 Procedures DateProcedureProcedure DetailPerforming ClinicianStart: 36-35-2027PM HEAD/BRAIN WOGeneric External Data ProviderStart: 85-57-0372XJIUW Wilton Moreau MD Work Phone: Start: 86-99-5812OOMCM TUBES LAVENDER TOPWilfredo Moreau MD Work Phone: [phone]: 49-80-3670Pdiym metabolic panel calcium total Basvickey Lowe CONCRETE ENGINEER-AIRCRAFT MECHANIC ELECTRICAL AND RADIO Work Phone: Start: 74-28-6381Ordkhnhir serum plasma/whole blood Basvickey Lowe CONCRETE ENGINEER-AIRCRAFT MECHANIC ELECTRICAL AND RADIO Work Phone: Start: 99-53-0652Wbafj metabolic panel calcium total Bashar R Mynor CONCRETE ENGINEER-AIRCRAFT MECHANIC ELECTRICAL AND RADIO Work Phone: Start: 31-12-0700Awtpq metabolic panel calcium total Bashar R Mynor CONCRETE ENGINEER-AIRCRAFT MECHANIC ELECTRICAL AND RADIO Work Phone: Start: 39-58-5181Cctjqzww kinase totalSabrina Tilley PA-C Work Phone: Start: 21-84-9292Hozhg count complete auto&auto difrntl wbcBashar Willis Lowe CONCRETE ENGINEER-AIRCRAFT MECHANIC ELECTRICAL AND RADIO Work Phone: Start: 34-89-2843Uzjzn metabolic panel calcium total Bashar Willis Lowe CONCRETE ENGINEER-AIRCRAFT MECHANIC ELECTRICAL AND RAD[employer] Work Phone: Start: 65-37-2006ZVXUTWN GLUCOSEDachayo Moreau MD Work Phone: Start: 28-71-1096Oe head/brain w/o contrast material Mary Lowe CONCRETE ENGINEER[employer] Work Phone: Start: 05-16-2025 End: 35-34-4654Fatbjmp bacterial quanttative colony count urineAshabelardo Giselle Saira CONCRETE ENGINEER[employer] Work Phone: Start: 61-79-1923UMGKFCAA ABORIlya Pires MD Work Phone: Start: 72-04-2023Sosgnrxo screenNOT PCPComment on above:Performed By: #### DSU #### [facility] ([facility]) [address] [place] [address] VIRStart: 05-16-2025 End: 91-24-8199Thghp typing serologic aboMary Lowe CONCRETE ENGINEER[employer] Work Phone: Start: 46-38-0708MLLT TOP ON Karly Pires MD Work Phone: Start: 96-59-3765JUPTEDX Caio Pires MD Work Phone: Start: 05-16-2025 End: 76-36-5178Nbhawmqopimim metabolic panelBarashard Lowe CONCRETE ENGINEER-AIRCRAFT MECHANIC ELECTRICAL AND RADIO Work Phone: Start: 20-82-4263Fhfbdpz [Mass/volume] in Serum or PlasmaBarashard Lowe CONCRETE ENGINEER-AIRCRAFT MECHANIC ELECTRICAL AND RADIO Work Phone: Start: 57-96-1665NOWNX CULTURE [facility] TULSAGeneric External Data ProviderStart: 32-20-8557FY TOMOSYNTHESIS SCREENING Sanjuanita Medina MD Work Phone: Start: 15-20-9934KSTACIZTSRW SKIN LESIONNatalie A Felter CONCRETE ENGINEER-AIRCRAFT MECHANIC ELECTRICAL AND RADIO Work Phone: Start: 92-87-5807UA TOMOSYNTHESIS SCREENING Sanjuanita Medina MD Work Phone: Start: 32-03-2926IC DEXA AXIAL SKELETONOchoa Medina MD Work Phone: Plan of Treatment DateCare ActivityDetailAuthorStart: 11-18-2025 End: 75-93-9134Gxflwpz encounter procedureNOMS SWS DERMStart: 11-16-2025 DTaP/Tdap/Td Vaccines (3 - Td or Tdap)DTaP/Tdap/Td Vaccines (3 - Td or Tdap)NOMS HealthcareStart: 12-19-2025Medicare Annual Wellness (AWV)Medicare Annual Wellness (AWV)NOMS HealthcareStart: 09-08-2025 End: 79-91-0405Joxvzji encounter procedureNOMS CI FMStart: 08-25-2025 End: 13-35-3395Vmevinl encounter hllhohhyq65/01/2025 9:30 AM EST Office Visit [facility] [place] [facility] [address] [place] [address] Ochoa Medina MD [address] [place] [address] [facility] [place] Nunez MedinceStart: 06-30-2025 End: 61-03-4799Vzsnvre encounter mbsdbehkh51/06/2025 2:00 PM EDT Office Visit [facility] [place] [facility] [address] [place] [address] Ochoa Medina MD [address] [place] [address] ArrivedNOMS [place] Nunez MedinceComment on above:ArrivedStart: 06-18-2025 End: 88-93-3777Zxlmwor encounter jgbvuyeuf22/24/2025 2:30 PM EDT Office Visit [facility] [place] [facility]ynce [address] [place] [address] Buck Flores PA [address] [place] [address] ArrivedNOMS [place] Nunez MedinceComment on above:ArrivedStart: 27-88-8068IWGIW-19 Vaccine ( season)COVID-19 Vaccine ( season)NOMS HealthcareStart: 13-61-6942Qoyqkstjo vaccinationInfluenza Vaccine (#1)N[facility]S HealthcareStart: 36-57-2321Sbxim culture [facility]: 57-81-6195Vxwhqhga identified in Urine by CultureUrine CultureMansfield Hospitaltart: 01-06-2025 End: 45-32-6703Bngspjn encounter dobrvtkjv66/14/2025 9:30 AM EDT Office Visit [facility] [address] [place] [address] Buck Flores, PA [address] [place] [address] ArrivedNOMS CI FMComment on above:ArrivedStart: 11-18-2024 End: 87-90-0959Grgnazc encounter procedureNOMS SWS DERMComment on above:Arrived Start: 09-12-2024 End: 27-67-8456Dfannzm encounter procedureNOMS CI FMComment on above:Arrived Start: 09-09-2024 End: 27-82-2540Vkelxxj encounter hodjhblna65/16/2024 10:00 AM EST Office Visit [facility] [address] [place] [address] Buck Flores PA [address] [place] [address] ArrivedNOMS CI FMComment on above:ArrivedStart: 09-04-2024 End: 26-18-5700Dwcqtxc encounter omcnczodf82/11/2024 2:00 PM EST Office Visit [facility] [address] [place] [address] Neena Love, ELECTRONIC MUSICAL INSTRUMENT REPAIRER [address] [place] [address] ArrivedNOMS CI FMComment on above:ArrivedStart: 06-17-2024 End: 14-57-1850Akfewfw encounter procedureNOMS SWS DERMComment on above:Arrived Start: 09-12-2024Medicare Annual Wellness (AWV)Medicare Annual Wellness (AWV) N[facility]S HealthcareStart: 06-03-2024 End: 11-79-7392Uziuhav encounter cdkievpmv86/09/2024 9:20 AM EDT Office Visit [facility] [address] [place] [address] Onofre Zuleta APRN-AIRCRAFT MECHANIC ELECTRICAL AND RADIO [address] [place] [address] ArrivedNOMS SWS DERMComment on above: ArrivedStart: 14-24-1900Drcwihpiq vaccinationInfluenza Vaccine (#1)NOMS HealthcareStart: 05-14-2024 End: 89-42-0304Hjydbog encounter nhttophza78/20/2024 10:05 AM EDT Office Visit [facility] [address] [place] [address] Onofre Zuleta, CONCRETE ENGINEER-AIRCRAFT MECHANIC ELECTRICAL AND RADIO [address] [place] [address] ArrivedNOMS [facility] DERMComment on above: ArrivedStart: 12-05-2023 End: 11-03-2534Sipilgg encounter /12/2024 9:00 AM EDT Office Visit [facility] [address] [place] [address] Buck Flores PA [address] [place] [address] NOMS CI FMStart: 11-14-2023 End: 17-20-8113Rlvdlqs encounter cvcqdfwot47/20/2024 9:40 AM EST Office Visit [facility] [address] [place] [address] Onofre Zuleta, CONCRETE ENGINEER-AIRCRAFT MECHANIC ELECTRICAL AND RADIO [address] [place] [address] [facility] DERMStart: 11-07-2023 End: 94-40-0525Wchrxmv encounter xtwdcmxoj05/13/2024 11:30 AM EST Office Visit [facility] [address] [place] [address] Buck Flores PA [address] [place] [address] ArrivedNOMS CI FMComment on above:ArrivedBacteria identified in Blood by Aerobe cultureProMedica Work Phone: UR[facility] CULTURE - [facility] Lab Routine 05/16/2025 5:55 PM EDTNOMS Healthcare Immunizations Immunization DateImmunizationNotesCare QwcobjkwIbziwclc35-92-2485ipbwojslz, high dose seasonal, preservative-freeBuck THOMSON Work Phone: [facility] HospitalDkjowinwsw39-32-7254oimgxbm toxoid, reduced diphtheria toxoid, and acellular pertussis vaccine, adsorbedDachayo Moreau MD Work Phone: [facility] CampusLzkrqc75-96-2884txlrelbve, high dose seasonal, preservative-freeBuck THOMSON Work Phone: [facility] HospitalWhxclhqqbj44-03-9767gqesxolsp virus vaccine, unspecified formulationNatalie Ebonyer CONCRETE ENGINEER-AIRCRAFT MECHANIC ELECTRICAL AND RADIO Work Phone: [facility] HospitalZjxxphbxcm89-47-7901DPV, recombinant, protein subunit RSVpreF, adjuvant reconstitu, 120mcg/0.5mL, PF (Arexvy)Buck HTOMSON Work Phone: [facility] HospitalAfmrargcdz14-40-4753Npduy-92, Mrna, Lnp-s, Pf,marci-sucrose,30 Mcg/0.3ml SeasonalDachayo Moreau MD Work Phone: [facility]09-19-2023Pfizer Purple Cap SARS-CoV-2 VaccinationBuck THOMSON Work Phone: [facility] HospitalGbsbbpxbcy96-88-2768rpwpjxf toxoid, reduced diphtheria toxoid, and acellular pertussis vaccine, adsorbedBuck THOMSON Work Phone: [facility] Work Phone: [phone]sfmk, Seasonal, Quadrivalent, AdjuvantedBuck THOMSON Work Phone: [facility] HospitalYqprswaylm11-61-0995bfxjztrii virus vaccine, unspecified formulationNatalie Merlyn CONCRETE ENGINEER-AIRCRAFT MECHANIC ELECTRICAL AND RADIO Work Phone: [facility] HospitalGastwxinxx98-21-8602Cdqjduf Bivalent Booster VaccinationBuck THOMSON Work Phone: [facility] HospitalOkqvubppgr63-96-1953Laflgplza, High-dose Seasonal, Quadrivalent, Preservative FreeKaren Hemmer PA Work Phone: [facility] HospitalGlzdbyzgia18-85-4299Jszkkpcac, High-dose Seasonal, Quadrivalent, Preservative FreeKaren Hemmer PA Work Phone: [phone] [employer] Cultural TransmissionUniversity of Missouri Children's HospitalFvlyoojasq91-47-3293givzbn vaccine recombinant Buck Hemmer PA Work Phone: [phone] [employer] Cultural TransmissionUniversity of Missouri Children's HospitalOlqqcrrfmw54-60-5126ymvcplzqe, high dose seasonal, preservative-freeKaren Hemmer PA Work Phone: [phone] [employer] Cultural TransmissionUniversity of Missouri Children's HospitalGyeenloqvy19-15-5434aeebxi vaccine recombinant Buck Hemmer PA Work Phone: [phone] [employer] Cultural TransmissionUniversity of Missouri Children's HospitalPkahcejpyb27-62-3022mysftwvtdwuy polysaccharide vaccine, 23 valentKaren Hemmer PA Work Phone: [phone] [employer] Cultural TransmissionUniversity of Missouri Children's HospitalVimeogeiox72-61-4839tjbgatync, high dose seasonal, preservative-freeKaren Hemmer PA Work Phone: [phone] [employer] Cultural TransmissionUniversity of Missouri Children's HospitalSeslvunlko78-01-7330etwgthgui, injectable, quadrivalent, contains preservativeKaren Hemmer PA Work Phone: [phone] [employer] Cultural TransmissionUniversity of Missouri Children's HospitalUdqfsqfiyd35-41-0461yqomrwnhzcxj conjugate vaccine, 13 valentKaren Hemmer PA Work Phone: [phone] [employer] Cultural TransmissionUniversity of Missouri Children's HospitalCxfajszzbm29-25-8154ypcozwsva, high dose seasonal, preservative-freeKaren Hemmer PA Work Phone: [phone] [employer] Cultural TransmissionUniversity of Missouri Children's HospitalEottbdaywu21-03-2962ebibed vaccine, liveKaren Hemmer PA Work Phone: [phone] [place], [place] [address]Kgwrovmmhk29-56-6662zsuczd vaccine, liveKaren Hemmer PA Work Phone: [phone] [employer] Cultural TransmissionUniversity of [facility] Children's Hospital Payers DatePayer CategoryPayerPolicy [id number] Indemnity [employer] [id number] Health InsuranceSELECT MEDICAL SPECIALTY H[facility] NORTHCAL MUTUAL Member Subscriber Plan / Payer (Effective 2021-Present) Name: Mei Guardado Relation to Subscriber: Self Name: Mei Guardado ID: Not on file Type: Not on file Address: [address] [id number] [facility] [id number] 2021- [address] [place] [id number]6-1792 Medicare.[id number] [id number] .1.132195.3.57[id number] .1.938819.3.57[id number] 2.1.056044.3.579.[id number] .1.340642.3.57[id number] 2.16.840.1.425630.3.579.2.[id number] 2.16.840.1.130951.3.57[id number] 2.16.840.1.226312.3.579.[id number] 2.16.840.1.163329.3.57[id number] 2.16840.1.783876.3.579.[id number] 2.16840.1.613768.3.579.[id number] 2.16840.1.063179.3.579.2.[id number] 2.16840.1.649508.3.579.[id number] 2.16840.1.730102.3.57[id number] 2.16840.1.274542.3.579.2.7[id number] 2.16840.1.310187.3.579.2.[id number] 2.16840.1.791223.3.579.2.[id number] 2.16840.1.835538.3.57[id number] 2.16840.1.391578.3.579.2.[id number] 2.16.840.1.416761.3.579.2.011158-17-5421Thinrcd4990928 2.16.840.1.661444.3.57[id number] 2.16.840.1.804043.3.57[id number] 2.16.840.1.835824.3.57[id number] 2.16.840.1.827403.3.579.2.1259MedicareMedicare [id number] 2.16840.1.367572.3.579.2.531 Social History DateTypeDetailFacilityStart: 08-24-2023 End: 93-76-0736Mje Assigned At [facility] [employer] Other Start: 02-16-2023 End: 17-99-0671Dsphrka smoking status NHISNever smoked tobaccoNOMS Healthcare Start: 02-16-2023 End: 85-74-7194Jraemqo use and exposureSmokeless tobacco non-userNOMS Healthcare Start: 08-24-2023 End: 51-03-8743Njpnsoi intakeLifetime non-drinker (finding)NOMS HealthcareStart: 08-24-2023 End: 13-92-4655Nstvefl of Social functionNOMS HealthcareStart: 63-82-0204Xdb Assigned At BirthNot on fileNOMS HealthcareStart: 86-83-5194YxlVpetvf (finding) [facility]tart: 76-73-4411Wzo Assigned At Critical Access HospitalFeOhioHealth Hardin Memorial Hospitaltart: 42-33-3426Lovxbvsbp beverage intakeEx- drinker (finding)[employer] SystemHas the [employer], oil, or water [employer] threatened to shut off services in your home in past 12Faxton Hospitaltart: 80-86-9103Pul often to you have a drink containing alcohol? Patient declinedSumma Health Akron CampusHow often do you have 6 or more drinks on 1 occasion?NeverSumma Health Akron Campus Goals DatePatient GoalDesired Activity/StatePersonal health goalComment on above: Evaluation of progress towards goal: Safe discharge from hospital Functional Status UcqmJilesdubacDzoixpIsayptoh78-57-3676Cxryuna Health Questionnaire 2 item (PHQ- 2) [Reported][facility]'s HospitalBmceytvaex33-56-4562Ywkrwjg Health Questionnaire 2 item (PHQ- 2) [Reported][facility] HospitalOgkkzjnmue84-25-4894Fekamll Health Questionnaire 2 item (PHQ- 2) [Reported][facility] HospitalGzvimcynka76-51-7279Rqorj score [AUDIT-C]-1 05/19/2025 2:53 PM EDT Angela ParadaCentra Bedford [facility] Hospital06-24-2025Patient Health Questionnaire 2 item (PHQ-2) [Reported][facility] HospitalOopqgkkxge33-76-9973Qgmrtzg Health Questionnaire 2 item (PHQ-2) [Reported][facility] HospitalPcsorrgjaz43-31-5608Hpuyzak Health Questionnaire 2 item (PHQ-2) [Reported][facility] Mental Status DateAssessmentResultProHealth [facility] Clinical Notes 07-15-2021 to 07-24-2025 Note Date & UwthXelaJlattwps77-69-8316 History of Present illness Narrative* Ochoa Medina [...] or fail to improve. documented in this encounterUniversity of Missouri Children's HospitalXdhsbwbcbw00-42-1306 History of Present illness Narrative* Ochoa Medina [...] as cause. No evidence of CVA, No [place] and no Tumor Needs a life alert [...] as cause. No evidence of CVA, No [place] and no Tumor Needs a life alert Consider camera ICH (intracerebral hemorrhage) (HCC) Resolved as per CT scan May Drive during the day only short distances and low speeds Folic Acid and B12 May need Neurology Repeat CT scan in August Follow up in about 8 weeks (around 08/25/2025). documented in this encounterUniversity of Missouri Children's HospitalClxhbjwbhe83-95-3786 History of Present illness Narrative* ALIX Asher - 06/18/2025 2:30 PM EDT Images from the original note were not included. Subjective Patient ID: Mei Guardado is a 85 y.o. female who presents for half-way discharge. Flowsheet Row Patient Outreach from 06/16/2025 in [facility] with Claudia Burr LPN Hospital Information ED, Hospital or Fpc Facility Discharge? Fpc Facility Patient has been contacted within two business days of discharge Yes Have two attempts been made to contact the patient within two business days of being discharged? Yes Discharge Date 06/12/25 Discharged To: Home Setting Fpc Facilities [facility] Engagement Admission Date 05/20/25 Medications Discharge medications [...] yes What is the home health agency? [facility]ALTH NURSE/PT/OT Patient Teaching Does the [...] that is a new med from the [facility]. Here with her step daughter, Tawnya. [...] - Flu vaccine, high dose seasonal, PF (YJI752) (Fluzone High Dose) Provided pt with Influenza [...] for Appointment As Scheduled. documented in this encounterUniversity of Missouri Children's HospitalCeejvzjjjc88-51-4297 Nurse Note* Linda Valadez RN - 05/20/2025 4:10 PM EDT Patient was educated on discharge materials and IV's were removed. Patient is aware she is going [facility] with transport. Report was given to transport and patient is on her way to [facility] facility. [facility]08-26-2025 Nurse Note* Linda Valadez RN - 05/20/2025 4:10 PM EDT Patient was educated on discharge materials and IV's were removed. Patient is aware she is going [facility] with transport. Report was given to transport and patient is on her way to [facility] facility. documented in this encounterSumma Health Akron Campus08-26-2025 Plan of care note * Plan of Care - Linda Valadez RN - 05/20/2025 1:16 PM EDT Problem: Pain Goal: Patient goal is pain score less than 4, able to rest, and participant in treatment plan as appropriate Description: INTERVENTIONS: 1. Encourage patient or legal scheduling representative to report early pain and ask [...] per policy 9. Teach patient or legal scheduling representative interventions for comforting Outcome: Adequate for [...] at the bedside 7. Instruct patient/ patient scheduling representative about use of safety devices 8. Include patient/ patient scheduling representative in decisions related to safety Outcome: [...] hygiene technique. 7. Identify and instruct patient/patient scheduling representative in use of appropriate isolation precautionsfor identified infection/symptoms. 8. Provide and discuss with patient/patient scheduling representative on educational MDRO sheet. 9. Encourage and monitor nutritional status daily and consult solvent plant operator if indicated. 10. Implement neutropenic guidelines as needed. Outcome: Adequate for Discharge Note: Patient has remained free from new infections. Patient educated on infection prevention such as hand hygiene. Problem: Knowledge Deficit Goal: Patient/patient scheduling representative demonstrates understanding of disease process, treatment [...] develop effective communication strategies 4. Include patient/patient scheduling representative in decisions related to communication Outcome: [...] Collaborate with ancillary departments 14. Include patient/patient scheduling representative in decisions related to anxiety Outcome: [...] providing care 6. Collaborate with pastoral/spiritual care, medical social consultant, mental health counselor as needed. 7. Instruct patient on diversional activities such as physical activity, distraction, and deep breathing exercises to assist with coping 8. Involve patient's scheduling representative in care Outcome: Adequate for Discharge [...] supplement as ordered 13. Collaborate with clinical solvent plant operator 14. Include patient/ patient's scheduling representative in decisions related to nutrition Outcome: [...] be free from fall Description: Interventions: 1. Clarinda to environment 2. Hourly rounds addressing the [...] non-skid footwear 11. Teach patient and patient scheduling representative to maintain environment for safety and [...] (cane, walker) within reach 19. Request patient scheduling representative bring adaptive equipment/mobility aids from home or obtain and provide as needed 20. Consult pharmacy regarding effects of med's affecting mobility, cognition, and alternatives 21. Obtain physician order for PT if risk factors associated with mobility are present 22. Obtain physician order for OT as appropriate 23. Utilize diversional activities 24. Educate patient and patient scheduling representative how to maintain a safe environment during visitationtimes (notify nurse prior to leaving bedside) 25. Consider appropriateness of medical or non-medical billing representative 26. Set up voiding schedule as appropriate (every 2 hours) Outcome: Adequate for Discharge Note: Patient has remained free from falls. [facility]08-26-2025 Miscellaneous Notes* Plan of Care - Linda Valadez RN - 05/20/2025 1:16 PM EDT Problem: Pain Goal: Patient goal is pain score less than 4, able to rest, and participant in treatment plan as appropriate Description: INTERVENTIONS: 1. Encourage patient or legal scheduling representative to report early pain and ask [...] per policy 9. Teach patient or legal scheduling representative interventions for comforting Outcome: Adequate for [...] at the bedside 7. Instruct patient/ patient scheduling representative about use of safety devices 8. Include patient/ patient scheduling representative in decisions related to safety Outcome: [...] hygiene technique. 7. Identify and instruct patient/patient scheduling representative in use of appropriate isolation precautionsfor identified infection/symptoms. 8. Provide and discuss with patient/patient scheduling representative on educational MDRO sheet. 9. Encourage and monitor nutritional status daily and consult solvent plant operator if indicated. 10. Implement neutropenic guidelines as needed. Outcome: Adequate for Discharge Note: Patient has remained free from new infections. Patient educated on infection prevention such as hand hygiene. Problem: Knowledge Deficit Goal: Patient/patient scheduling representative demonstrates understanding of disease process, treatment [...] develop effective communication strategies 4. Include patient/patient scheduling representative in decisions related to communication Outcome: [...] Collaborate with ancillary departments 14. Include patient/patient scheduling representative in decisions related to anxiety Outcome: [...] providing care 6. Collaborate with pastoral/spiritual care, medical social consultant, mental health counselor as needed. 7. Instruct patient on diversional activities such as physical activity, distraction, and deep breathing exercises to assist with coping 8. Involve patient's scheduling representative in care Outcome: Adequate for Discharge [...] supplement as ordered 13. Collaborate with clinical solvent plant operator 14. Include patient/ patient's scheduling representative in decisions related to nutrition Outcome: [...] be free from fall Description: Interventions: 1. Clarinda to environment 2. Hourly rounds addressing the [...] non-skid footwear 11. Teach patient and patient scheduling representative to maintain environment for safety and [...] (cane, walker) within reach 19. Request patient scheduling representative bring adaptive equipment/mobility aids from home or obtain and provide as needed 20. Consult pharmacy regarding effects of med's affecting mobility, cognition, and alternatives 21. Obtain physician order for PT if risk factors associated with mobility are present 22. Obtain physician order for OT as appropriate 23. Utilize diversional activities 24. Educate patient and patient scheduling representative how to maintain a safe environment during visitationtimes (notify nurse prior to leaving bedside) 25. Consider appropriateness of medical or non-medical billing representative 26. Set up voiding schedule as appropriate (every 2 hours) Outcome: Adequate for Discharge Note: Patient has remained free from falls. * Discharge Planning Note - Sanjay Rosenthal RN - 05/20/2025 12:32 PM EDT 05/20/25 1231 Referral To Community Referrals / Resources Provided Denies needs Services Requested Patient expects to be discharged to: [facility] Does the patient wish to have family/friend/caregiver involved in their discharge planning? Yes Does the patient plan to return home to a community setting? No, patient to discharge to facility-based provider. See Discharge Disposition Discharge Disposition SNF SNF Name [facility] SN[facility] SNF Accepted? Yes Does the patient need discharge transportation arranged? Yes Transportation Arranged Ambulance Mobility issues discussed with transportation provider Yes Patient choice offered Yes List Provided Yes [facility] List Provided Fpc Facility DC Planning Complete Discharge Milestones Yes DISCHARGE PLANNING NOTE [facility] is able to accept. Pt informed and is ok w that plan Transport set for 3pm. CNspoke w pts daughter Tawnya and informed her of DC. DC packet on chart and Hens completed. RN given number for report. CR[facility] faxed to [facility]. Sanjay Rosenthal RN * Discharge Planning Note - Dimitri Rashid - 05/20/2025 12:12 PM EDT DISCHARGE PLANNING NOTE BLS transport with PTN confirmed via [facility] to [facility] 05.20.25 at 1500 * Plan of Care - Nilda Caraballo RN - 05/19/2025 9:48 PM EDT Problem: Pain Goal: Patient goal is pain score less than 4, able to rest, and participant in treatment plan as appropriate Description: INTERVENTIONS: 1. Encourage patient or legal scheduling representative to report early pain and ask [...] per policy 9. Teach patient or legal scheduling representative interventions for comforting Note: Patient's pain [...] at the bedside 7. Instruct patient/ patient scheduling representative about use of safety devices 8. Include patient/ patient scheduling representative in decisions related to safety Note: [...] hygiene technique. 7. Identify and instruct patient/patient scheduling representative in use of appropriate isolation precautionsfor identified infection/symptoms. 8. Provide and discuss with patient/patient scheduling representative on educational MDRO sheet. 9. Encourage and monitor nutritional status daily and consult solvent plant operator if indicated. 10. Implement neutropenic guidelines as needed. Note: Handwashing and standard precautions maintained, patient remains free of signs and symptoms of infection, patient is afebrile, IV insertion site monitored. Will continue to monitor for signs and symptoms of infection. Problem: Knowledge Deficit Goal: Patient/patient scheduling representative demonstrates understanding of disease process, treatment [...] DISCHARGE PLANNING NOTE Referral sent to [facility] (P# ; F# ) , [facility] (P#: ; F#: ) , [facility] in [place], [place] (P# ; F#: ) * Plan [...] EDT DISCHARGE PLANNING NOTE Referral sent to [facility], a division of [facility] P#[phone] [calling report];/[facility] (P# [calling report]; F# [...] Caregiver/Support System Limitations Patient/Caregiver Goals Patient/Caregiver Goals [facility] Skilled Nuring Care Skilled Care (Short [...] Yes List Provided Yes CarePort List Provided [facility] Facility Patient Goals: Patient/Caregiver Goals Patient/Caregiver Goals: [facility] Skilled Nuring Care: Skilled Care (Short Term) Goals: Goals discharge (pt-stated) Evaluation of progress towards goal: Safe discharge from hospital Tool Lapper Hand met with patient at bedside and introduced self and explained role. Patient's PCP and pharmacy was confirmed. Patient needs assistance with ADL's and has none for DME. Per patient report: Smoking: denies ETOH: denies Drugs: denies Patient does not endorse issue obtaining food or medications and all utilities are working. Discharge disposition: SNF placement. SNF list given. Patient and family looking it over. Tool Lapper Hand will continue to follow for ongoing discharge transition needs. - Mable Fisher RN 05/19/25 12:50 PM Family wants to go to SNF closer to home instead of [facility]. Referrals sent. - Mable Fisher RN 05/19/25 1:47 PM * PT/OT/SLIVER CUTTER - RADHA Christensen/Andrea - 05/19/2025 11:24 AM [...] her down in the bathtub. Taken to [facility] whereshe was found to have the following: [...] Past Medical History: Diagnosis Date Breast cancer ([facility]) 6 Clicks: Daily Activity Putting on [...] Mobility Equipment: gait belt, RW, chair alarm Telemetry/Substitute Bus Driver: Yes Other: fall risk, some confusion/disorientation Pain [...] daughter Clotilde and her Lola live in [place] and [place]lo[place] family in the [place] region - Clotilde stated she would stay [...] Patient will perform functional mobility with Modified Henry Dates: Start: 05/19/25 Expected End: 06/16/25 Description: [...] Patient will perform toilet transfers with Modified Henry Dates: Start: 05/19/25 Expected End: 06/16/25 Description: Goal Description: Disciplines: OT Problem: Transfers Dates: Start: 05/19/25 Disciplines: OT Goal: Patient will perform transfers with Modified Henry Dates: Start: 05/19/25 Expected End: 06/16/25 Description: Goal Description: Disciplines: OT Problem: Tub/Shower Transfers Dates: Start: 05/19/25 Disciplines: OT Goal: Patient will perform tub/shower transfers with Stand By Assist Dates: Start: 05/19/25 Expected End: 06/16/25 Description: Goal Description: Disciplines: OT Occupational Therapy Care Plan (Resolved) There are no resolved problems. Principal Problem: ICH (intracerebral hemorrhage) ([facility] [place] [place]) * PT/OT/SLIVER CUTTER - Cass Alexis, PT - 05/19/2025 11:23 [...] 6 Clicks: Basic Mobility Raw Score: 17 [facility] G Code Modifier: CK Pt is an 85 yo female admit 05[facility]17 from [facility] after found down at home by neighbor. Appears that pt had fall in kitchen and then walked to bathroom where she fell again. Pt amnestic to events. Pt with laceration to back of head and found to have skull fracture, B SAH in temporal lobes andIPH L frontal lobe. 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 Pt did have 1 other fall earlier this year. Prior Function Lives With: Alone Receives Help From: Family (Step-dtr Clotilde and her Lola live in [place]. Clotilde reports she would be able to [...] Pt amb 12 feet in room with STUDIO TECHNICIAN x 2, 40 [address] hallway with [...] Goal: Patient will perform gait with Modified Henry Dates: Start: 05/19/25 Expected End: 06/06/25 Description: [...] Goal: Patient will perform transfers with Modified Henry Dates: Start: 05/19/25 Expected End: 06/06/25 Description: Goal Description: with RW support as needed Disciplines: PT Physical Therapy Care Plan (Resolved) There are no resolved problems. Principal Problem: ICH (intracerebral hemorrhage) ([facility]) * Plan of Care - Jude Tfaoya RN - 05/19/2025 7:15 AM EDT Problem: Pain Goal: Patient goal is pain score less than 4, able to rest, and participant in treatment plan as appropriate Description: INTERVENTIONS: 1. Encourage patient or legal scheduling representative to report early pain and ask [...] per policy 9. Teach patient or legal scheduling representative interventions for comforting Outcome: Progressing Note: [...] at the bedside 7. Instruct patient/ patient scheduling representative about use of safety devices 8. Include patient/ patient scheduling representative in decisions related to safety Outcome: [...] hygiene technique. 7. Identify and instruct patient/patient scheduling representative in use of appropriate isolation precautionsfor identified infection/symptoms. 8. Provide and discuss with patient/patient scheduling representative on educational MDRO sheet. 9. Encourage and monitor nutritional status daily and consult solvent plant operator if indicated. 10. Implement neutropenic guidelines as needed. Outcome: Progressing Note: Currently being treated for infection. Care continues, along with collaboration with care team as new signs and symptoms arise. Problem: Knowledge Deficit Goal: Patient/patient scheduling representative demonstrates understanding of disease process, treatment [...] develop effective communication strategies 4. Include patient/patient scheduling representative in decisions related to communication Outcome: [...] Collaborate with ancillary departments 14. Include patient/patient scheduling representative in decisions related to anxiety Outcome: [...] providing care 6. Collaborate with pastoral/spiritual care, medical social consultant, mental health counselor as needed. 7. Instruct patient on diversional activities such as physical activity, distraction, and deep breathing exercises to assist with coping 8. Involve patient's scheduling representative in care Outcome: Progressing Note: Patient [...] supplement as ordered 13. Collaborate with clinical solvent plant operator 14. Include patient/ patient's scheduling representative in decisions related to nutrition Outcome: [...] Score of =/> 25 or indicated by [facility] Assessment Goal: Patient should be free from fall Description: Interventions: 1. Clarinda to environment 2. Hourly rounds addressing the [...] non-skid footwear 11. Teach patient and patient scheduling representative to maintain environment for safety and [...] (cane, walker) within reach 19. Request patient scheduling representative bring adaptive equipment/mobility aids from home or obtain and provide as needed 20. Consult pharmacy regarding effects of med's affecting mobility, cognition, and alternatives 21. Obtain physician order for PT if risk factors associated with mobility are present 22. Obtain physician order for OT as appropriate 23. Utilize diversional activities 24. Educate patient and patient scheduling representative how to maintain a safe environment during visitationtimes (notify nurse prior to leaving bedside) 25. Consider appropriateness of medical or non-medical billing representative 26. Set up voiding schedule as appropriate [...] Description: INTERVENTIONS: 1. Encourage patient or legal scheduling representative to report early pain and ask [...] per policy 9. Teach patient or legal scheduling representative interventions for comforting Outcome: Progressing Note: [...] at the bedside 7. Instruct patient/ patient scheduling representative about use of safety devices 8. Include patient/ patient scheduling representative in decisions related to safety Outcome: [...] hygiene technique. 7. Identify and instruct patient/patient scheduling representative in use of appropriate isolation precautionsfor identified infection/symptoms. 8. Provide and discuss with patient/patient scheduling representative on educational MDRO sheet. 9. Encourage and monitor nutritional status daily and consult solvent plant operator if indicated. 10. Implement neutropenic guidelines as needed. Outcome: Progressing Note: Currently being treated for infection. Will continue to monitor for new signs and symptoms. Problem: Knowledge Deficit Goal: Patient/patient scheduling representative demonstrates understanding of disease process, treatment [...] supplement as ordered 13. Collaborate with clinical solvent plant operator 14. Include patient/ patient's scheduling representative in decisions related to nutrition Outcome: Progressing Note: Pt nutritional needs monitored and addressed as ordered by physician. Dietary recommendationsappreciated as ordered. Problem: Moderate - High Risk Fall Score Description: Conrad Fall Score of =/> 25 or indicated by [facility] Assessment Goal: Patient should be free from fall Description: Interventions: 1. Clarinda to environment 2. Hourly rounds addressing the [...] non-skid footwear 11. Teach patient and patient scheduling representative to maintain environment for safety and [...] (cane, walker) within reach 19. Request patient scheduling representative bring adaptive equipment/mobility aids from home or obtain and provide as needed 20. Consult pharmacy regarding effects of med's affecting mobility, cognition, and alternatives 21. Obtain physician order for PT if risk factors associated with mobility are present 22. Obtain physician order for OT as appropriate 23. Utilize diversional activities 24. Educate patient and patient scheduling representative how to maintain a safe environment during visitationtimes (notify nurse prior to leaving bedside) 25. Consider appropriateness of medical or non-medical billing representative 26. Set up voiding schedule as appropriate (every 2 hours) Outcome: Progressing Note: Fall risk assessment preformed and safety measures in place. Education given to family/patient. Will continue to monitor. * PT/OT/SLIVER CUTTER - Julienne Jolley CCC-SLIVER CUTTER - 05/18/2025 2:48 PM EDT Speech Therapy [...] Dysphagia Problem: Swallowing Dates: Start: 05/17/25 Disciplines: SLIVER CUTTER Goal: LTG: Patient will maintain adequate nutrition/ hydration with optimum safety and efficiency of swallowing function of oral intake without overt signs/symptoms of aspiration for the highest appropriate diet level Dates: Start: 05/17/25 Expected End: 06/17/25 Disciplines: SLIVER CUTTER Goal: STG: Patient will tolerate therapeutic feeding trials of advanced textures with 90% accuracy with minimal cueing Dates: Start: 05/17/25 Expected End: 06/17/25 Disciplines: SLIVER CUTTER Outcomes Date/Time User Outcome 05/18/25 1451 Julienne Jolley [facility]-SLIVER CUTTER Progressing Template: ST - Rehab Speech Problem: Auditory Comprehension Dates: Start: 05/17/25 Disciplines: SLIVER CUTTER Goal: LTG: Patient will comprehend communication related to basic medical and social needs and utilize compensatory strategies to maintain safety in a functional living environment Dates: Start: 05/17/25 Expected End: 06/17/25 Disciplines: SLIVER CUTTER Goal: STG: Patient will answer simple yes/no questions with 90% accuracy with minimal cueing. Dates: Start: 05/17/25 Expected End: 06/17/25 Disciplines: SLIVER CUTTER Problem: Verbal Expression Dates: Start: 05/17/25 Disciplines: SLIVER CUTTER Goal: LTG: Patient will utilize compensatory strategies to communicate wants and needs effectively to different conversational partners, maintain safety and participate socially in a functional living environment Dates: Start: 05/17/25 Expected End: 06/17/25 Disciplines: SLIVER CUTTER Goal: STG: Patient will complete simple naming tasks at word level (objects, pictures) in activities of daily living with 90% accuracy with minimal cueing Dates: Start: 05/17/25 Expected End: 06/17/25 Disciplines: SLIVER CUTTER Speech Therapy Care Plan (Resolved) There are no resolved problems. Principal Problem: ICH (intracerebral hemorrhage) ([facility]) * Plan of Care - Emily Byrne RN - 05/17/2025 9:23 PM EDT Problem: Pain Goal: Patient goal is pain score less than 4, able to rest, and participant in treatment plan as appropriate Description: INTERVENTIONS: 1. Encourage patient or legal scheduling representative to report early pain and ask [...] per policy 9. Teach patient or legal scheduling representative interventions for comforting Outcome: Progressing Note: [...] at the bedside 7. Instruct patient/ patient scheduling representative about use of safety devices 8. Include patient/ patient scheduling representative in decisions related to safety Outcome: [...] hygiene technique. 7. Identify and instruct patient/patient scheduling representative in use of appropriate isolation precautionsfor identified infection/symptoms. 8. Provide and discuss with patient/patient scheduling representative on educational MDRO sheet. 9. Encourage and monitor nutritional status daily and consult solvent plant operator if indicated. 10. Implement neutropenic guidelines as needed. Outcome: Progressing Note: Currently being treated for infection. Will continue to monitor for new signs and symptoms. Problem: Knowledge Deficit Goal: Patient/patient scheduling representative demonstrates understanding of disease process, treatment [...] supplement as ordered 13. Collaborate with clinical solvent plant operator 14. Include patient/ patient's scheduling representative in decisions related to nutrition Outcome: Progressing Note: Pt nutritional needs monitored and addressed as ordered by physician. Dietary recommendationsappreciated as ordered. Problem: Moderate - High Risk Fall Score Description: Conrad Fall Score of =/> 25 or indicated by [facility] Assessment Goal: Patient should be free from fall Description: Interventions: 1. Clarinda to environment 2. Hourly rounds addressing the [...] non-skid footwear 11. Teach patient and patient scheduling representative to maintain environment for safety and [...] (cane, walker) within reach 19. Request patient scheduling representative bring adaptive equipment/mobility aids from home or obtain and provide as needed 20. Consult pharmacy regarding effects of med's affecting mobility, cognition, and alternatives 21. Obtain physician order for PT if risk factors associated with mobility are present 22. Obtain physician order for OT as appropriate 23. Utilize diversional activities 24. Educate patient and patient scheduling representative how to maintain a safe environment during visitationtimes (notify nurse prior to leaving bedside) 25. Consider appropriateness of medical or non-medical billing representative 26. Set up voiding schedule as appropriate (every 2 hours) Outcome: Progressing Note: Fall risk assessment preformed and safety measures in place. Education given to family/patient. Will continue to monitor. * PT/OT/SLIVER CUTTER - Julienne Jolley CCC-SLIVER CUTTER - 05/17/2025 9:55 AM EDT Speech Therapy Evaluation Bedside Swallow/Feeding Evaluation Speech & Language Cognitive Evaluation Discharge Recommendations for Safe Patient Transition SLIVER CUTTER Therapy Recommendations: Continue ST services Recommendations Diet [...] and reassess as appropriate. Prognosis Services: Skilled SLIVER CUTTER services to address above deficits Prognosis/Potential: Good Considerations: Previous level of function Discharge Recommendations for Safe Patient Transition SLIVER CUTTER Therapy Recommendations: Continue ST services Impressions Receptive Language: Severe Expressive Language: Severe Cognitive Linguistic: Severe Plan Frequency: 1-2days/week Duration: Until discharge Treatments/Modalities: Strategies/techniques training Need for skilled Speech Language Pathology Services to address deficits in speech/language/cognition due to a status decline resulting from trauma s/p fall. Prognosis Services: Skilled SLIVER CUTTER services to address the above deficits Prognosis/Potential: [...] Dysphagia Problem: Swallowing Dates: Start: 05/17/25 Disciplines: SLIVER CUTTER Goal: LTG: Patient will maintain adequate nutrition/ hydration with optimum safety and efficiency of swallowing function of oral intake without overt signs/symptoms of aspiration for the highest appropriate diet level Dates: Start: 05/17/25 Expected End: 06/17/25 Disciplines: SLIVER CUTTER Goal: STG: Patient will tolerate therapeutic feeding trials of advanced textures with 90% accuracy with minimal cueing Dates: Start: 05/17/25 Expected End: 06/17/25 Disciplines: SLIVER CUTTER Template: ST - Rehab Speech Problem: Auditory Comprehension Dates: Start: 05/17/25 Disciplines: SLIVER CUTTER Goal: LTG: Patient will comprehend communication related to basic medical and social needs and utilize compensatory strategies to maintain safety in a functional living environment Dates: Start: 05/17/25 Expected End: 06/17/25 Disciplines: SLIVER CUTTER Goal: STG: Patient will answer simple yes/no questions with 90% accuracy with minimal cueing. Dates: Start: 05/17/25 Expected End: 06/17/25 Disciplines: SLIVER CUTTER Problem: Verbal Expression Dates: Start: 05/17/25 Disciplines: SLIVER CUTTER Goal: LTG: Patient will utilize compensatory strategies to communicate wants and needs effectively to different conversational partners, maintain safety and participate socially in a functional living environment Dates: Start: 05/17/25 Expected End: 06/17/25 Disciplines: SLIVER CUTTER Goal: STG: Patient will complete simple naming tasks at word level (objects, pictures) in activities of daily living with 90% accuracy with minimal cueing Dates: Start: 05/17/25 Expected End: 06/17/25 Disciplines: SLIVER CUTTER Speech Therapy Care Plan (Resolved) There are no resolved problems. Principal Problem: ICH (intracerebral hemorrhage) ([facility]) * Plan of Care - Young Parr RN - 05/17/2025 9:21 AM EDT Problem: Pain Goal: Patient goal is pain score less than 4, able to rest, and participant in treatment plan as appropriate Description: INTERVENTIONS: 1. Encourage patient or legal scheduling representative to report early pain and ask [...] per policy 9. Teach patient or legal scheduling representative interventions for comforting Outcome: Progressing Note: [...] at the bedside 7. Instruct patient/ patient scheduling representative about use of safety devices 8. Include patient/ patient scheduling representative in decisions related to safety Outcome: [...] hygiene technique. 7. Identify and instruct patient/patient scheduling representative in use of appropriate isolation precautionsfor identified infection/symptoms. 8. Provide and discuss with patient/patient scheduling representative on educational MDRO sheet. 9. Encourage and monitor nutritional status daily and consult solvent plant operator if indicated. 10. Implement neutropenic guidelines as needed. Outcome: Progressing Note: Continue treatment Problem: Knowledge Deficit Goal: Patient/patient scheduling representative demonstrates understanding of disease process, treatment [...] develop effective communication strategies 4. Include patient/patient scheduling representative in decisions related to communication Outcome: [...] Collaborate with ancillary departments 14. Include patient/patient scheduling representative in decisions related to anxiety Outcome: [...] providing care 6. Collaborate with pastoral/spiritual care, medical social consultant, mental health counselor as needed. 7. Instruct patient on diversional activities such as physical activity, distraction, and deep breathing exercises to assist with coping 8. Involve patient's scheduling representative in care Outcome: Progressing Note: na [...] supplement as ordered 13. Collaborate with clinical solvent plant operator 14. Include patient/ patient's scheduling representative in decisions related to nutrition Outcome: [...] Score of =/> 25 or indicated by [facility] Assessment Goal: Patient should be free from fall Description: Interventions: 1. Clarinda to environment 2. Hourly rounds addressing the [...] non-skid footwear 11. Teach patient and patient scheduling representative to maintain environment for safety and [...] (cane, walker) within reach 19. Request patient scheduling representative bring adaptive equipment/mobility aids from home or obtain and provide as needed 20. Consult pharmacy regarding effects of med's affecting mobility, cognition, and alternatives 21. Obtain physician order for PT if risk factors associated with mobility are present 22. Obtain physician order for OT as appropriate 23. Utilize diversional activities 24. Educate patient and patient scheduling representative how to maintain a safe environment during visitationtimes (notify nurse prior to leaving bedside) 25. Consider appropriateness of medical or non-medical billing representative 26. Set up voiding schedule as appropriate [...] Description: INTERVENTIONS: 1. Encourage patient or legal scheduling representative to report early pain and ask [...] per policy 9. Teach patient or legal scheduling representative interventions for comforting Outcome: Progressing Note: [...] at the bedside 7. Instruct patient/ patient scheduling representative about use of safety devices 8. Include patient/ patient scheduling representative in decisions related to safety Outcome: [...] hygiene technique. 7. Identify and instruct patient/patient scheduling representative in use of appropriate isolation precautionsfor identified infection/symptoms. 8. Provide and discuss with patient/patient scheduling representative on educational MDRO sheet. 9. Encourage and monitor nutritional status daily and consult solvent plant operator if indicated. 10. Implement neutropenic guidelines as needed. Outcome: Progressing Note: Currently being treated for UTI. Will continue to monitor for new signs and symptoms. Problem: Knowledge Deficit Goal: Patient/patient scheduling representative demonstrates understanding of disease process, treatment [...] supplement as ordered 13. Collaborate with clinical solvent plant operator 14. Include patient/ patient's scheduling representative in decisions related to nutrition Outcome: Progressing Note: Pt nutritional needs monitored and addressed as ordered by physician. Dietary recommendationsappreciated as ordered. Problem: Moderate - High Risk Fall Score Description: Conrad Fall Score of =/> 25 or indicated by [facility] Assessment Goal: Patient should be free from fall Description: Interventions: 1. Clarinda to environment 2. Hourly rounds addressing the [...] non-skid footwear 11. Teach patient and patient scheduling representative to maintain environment for safety and [...] (cane, walker) within reach 19. Request patient scheduling representative bring adaptive equipment/mobility aids from home or obtain and provide as needed 20. Consult pharmacy regarding effects of med's affecting mobility, cognition, and alternatives 21. Obtain physician order for PT if risk factors associated with mobility are present 22. Obtain physician order for OT as appropriate 23. Utilize diversional activities 24. Educate patient and patient scheduling representative how to maintain a safe environment during visitationtimes (notify nurse prior to leaving bedside) 25. Consider appropriateness of medical or non-medical billing representative 26. Set up voiding schedule as appropriate (every 2 hours) Outcome: Progressing Note: Fall risk assessment preformed and safety measures in place. Education given to family/patient. Will continue to monitor. documented in this encounterSum[facility]-26-[facility] Hospital course Narrative* ALIX Marks - 05/20/2025 1:11 PM EDT Images from the original note were not included. [facility] TRAUMA SURGERY-DISCHARGE SUMMARY DISCHARGE NOTE / SUMMARY Patient ID: Mei Guardado : 1940 Acct: [id number] Admit Date: 05/16/2025 Discharge Date: 05/20/2025 Admitting Physician: Wilfredo Moreau MD Consults: Neurosurgery and neuro interventional Discharge Diagnoses: Patient Active Problem List Diagnosis Date Noted Fall at home, initial encounter 05/20/2025 Closed fracture of right side of base [facility] 05/20/2025 Primary hypertension 05/20/2025 Traumatic rhabdomyolysis 05/20/2025 ICH (intracerebral hemorrhage) ([facility]) 05/16/2025 Past Medical History: Diagnosis Date Breast cancer ([facility]) HOSPITAL COURSE SUMMARY: Mei Guardado is an 85 y.o. White or female transferred from [place] for trauma consult after being found unresponsive [...] Lactic acidosis, leukocytosis - lactate 6.2 at [place] and WBC 20.2 - possible sepsis given [...] time of initiation Rhabdomyolysis - 354 at [facility] - repeat CK 1975, myoglobin at 967 [...] MD . Specialty: Family Medicine Contact information: [facility] [id number] Time Spent: 32 minutes ALIX Friedman-C Trauma Services Pager [phone] 05/20/25 1:12 PM ALIX Marks 05/20/25 1319 documented in this encounterSumma Health [facility]08-26-2025 Progress note* Discharge Planning Note - Sanjay Rosenthal RN - 05/20/2025 12:32 PM EDT 05/20/25 1231 Referral To Community Referrals / Resources Provided Denies needs Services Requested Patient expects to be discharged to: [facility] Does the patient wish to have family/friend/caregiver involved in their discharge planning? Yes Does the patient plan to return home to a community setting? No, patient to discharge to facility-based provider. See Discharge Disposition Discharge Disposition SNF SNF Name [facility] SN[facility] SNF Accepted? Yes Does the patient need discharge transportation arranged? Yes Transportation Arranged Ambulance Mobility issues discussed with transportation provider Yes Patient choice offered Yes List Provided Yes [facility] List Provided [facility] Facility DC Planning Complete Discharge Milestones Yes DISCHARGE PLANNING NOTE [facility] is able to accept. Pt informed and is ok w that plan Transport set for 3pm. CNspoke w pts daughter Tawnya and informed her of DC. DC packet on chart and Hens completed. RN given number for report. CRF faxed to [facility]. Sanjay Rosenthal RN [facility]08-26-[facility]25 Progress note* Discharge Planning Note - Dimitri Howe - 05/20/2025 12:12 PM EDT DISCHARGE PLANNING NOTE BLS transport with PTN confirmed via [facility] to [facility] 8.26.25 at 1500 [facility]08-26-[facility] History of Present illness Narrative* Solomon Mccord [...] Thank you, Solomon Mccord RN Rapid Response: [facility] * ALIX Marks - 05/19/2025 11:58 [...] Lactic acidosis, leukocytosis - lactate 6.2 at [place] and WBC 20.2 - possible sepsis given [...] initiation 5. Rhabdomyolysis (improving) - 354 at [place] - repeat CK 1975, myoglobin at 967 [...] in water, 100 mL/hr Trauma Services Pager: [phone] ALIX Marks 05/19/25 1203 * ALIX Kathleen - 05/18/2025 12:06 PM EDT TRAUMA SURGERY - PROGRESS NOTE Patient: eMi Guardado Date of : 1940 AGE 85 [...] Lactic acidosis, leukocytosis - lactate 6.2 at [place] - WBC 20.2 - possible sepsis given [...] initiation 5. Rhabdomyolysis (improving) - 354 at [place] - repeat CK this morning at 1976, [...] can be reached via Patient Touch Pager: [phone] ALIX Kathleen 05/18/25 1217 * Sophie Whitney MD - 05/17/2025 11:54 AM EDT Daily neurovascular progress note: 05/17/25 Day 1 Problem List: Principal Problem: ICH (intracerebral hemorrhage) ([facility]) Identifying statement / history of present illness: Mei Guardado is a 85 y.o. female who presented after for whom vascular neurology was consulted formultifocal cerebral hemorrhages. She initially presented to [facility] after she was found down yesterday in [...] - 0.2 10*3/uL Differential Type AUTOMATED DIFFERENTIAL [place] draw Collection Time: 05/16/25 10:44 PM Narrative The following orders were created for panel order [place] draw. Procedure Abnormality Status --------- ------ Michelle Top On Ice[[id number]] Final result Please view results for these [...] Active Problem List Diagnosis ICH (intracerebral hemorrhage) ([facility]) Plan: We will continue to monitor clinically Vascular Neurology will continue to follow Sophie Whitney MD PGY-2 Neurology [facility] This patient is being followed by the Neurology Resident service. Contact attending directly during these hours: Monday to 7:30-8:30 A.M. to Monday 12-1:00 p.m. Primary Neurology service: [phone] Consult neurology service: [phone] Resident Stroke Service: [phone] If the patient belongs to the Stroke [...] Lactic acidosis, leukocytosis - lactate 6.2 at [facility] - WBC 20.2 - possible sepsis given leukocytosis, tachycardia, and lactic acidosis, however no identifiable source of infection at this time. Possible aspiration given CT chest results - daily labs - trend lactate, normal here at 2 - IV fluids - blood culture and urine culture ordered - Rocephin 5. Rhabdomyolysis - 354 at [place] - repeat CK this morning at 1976, [...] Comments: Followed commands in BUE, able to manager community development fingers Moves all 4 extremities spontanouesly Opens [...] 100 mL/hr, Last Rate: 100 mL/hr (05/17/25 3923) MANDIE TILLEY PA-C Trauma Services Pager: [phone] 05/17/25 4:39 PM Please note that portions of this note were generated using voice recognition M*Modal dictation software. Although every effort was made to ensure the accuracy of this automated padded box sewer, some errors in padded box sewer may have occurred. Mandie Tilley PA-C 05/17/25 1639 Mandie Tilley PA-C 05/17/25 1640 documented in this encounterSumma Health [facility]08-25-2025 Plan of care note * Plan of Care - Nilda Caraballo RN - 05/19/2025 9:48 PM EDT Problem: Pain Goal: Patient goal is pain score less than 4, able to rest, and participant in treatment plan as appropriate Description: INTERVENTIONS: 1. Encourage patient or legal scheduling representative to report early pain and ask [...] per policy 9. Teach patient or legal scheduling representative interventions for comforting Note: Patient's pain [...] at the bedside 7. Instruct patient/ patient scheduling representative about use of safety devices 8. Include patient/ patient scheduling representative in decisions related to safety Note: [...] hygiene technique. 7. Identify and instruct patient/patient scheduling representative in use of appropriate isolation precautionsfor identified infection/symptoms. 8. Provide and discuss with patient/patient scheduling representative on educational MDRO sheet. 9. Encourage and monitor nutritional status daily and consult solvent plant operator if indicated. 10. Implement neutropenic guidelines as needed. Note: Handwashing and standard precautions maintained, patient remains free of signs and symptoms of infection, patient is afebrile, IV insertion site monitored. Will continue to monitor for signs and symptoms of infection. Problem: Knowledge Deficit Goal: Patient/patient scheduling representative demonstrates understanding of disease process, treatment [...] given Note: Complete Neurological assessment as indicated/ordered [facility]08-25-2025 Progress note* Discharge Planning Note - Lynda Lu - 05/19/2025 2:36 PM EDT DISCHARGE PLANNING NOTE Referral sent to [facility] (P# ; F# ) , [facility] (P#: ; F#: ) , [facility] in [place], [place] (P# ; F#: ) [facility]08-[facility] Plan of care note* Plan of Care [...] active orders for no high risk medications. [facility]08-25-[facility]25 Progress note* Discharge Planning Note - Lynda Lu - 05/19/2025 1:20 PM EDT DISCHARGE PLANNING NOTE Referral sent to [facility] of [facility] P#[phone] [calling report];/[facility] (P# [calling report]; F# ) [employer]08-25-2025 Progress note* Discharge Planning Note - Mable [...] Caregiver/Support System Limitations Patient/Caregiver Goals Patient/Caregiver Goals [facility] Skilled [facility] Care Skilled Care (Short [...] Yes List Provided Yes CarePort List Provided [facility] Facility Patient Goals: Patient/Caregiver Goals Patient/Caregiver Goals: [facility] Skilled [facility] Care: Skilled Care (Short Term) Goals: Goals discharge (pt-stated) Evaluation of progress towards goal: Safe discharge from hospital Tool Lapper Hand met with patient at bedside and introduced self and explained role. Patient's PCP and pharmacy was confirmed. Patient needs assistance with ADL's and has none for DME. Per patient report: Smoking: denies ETOH: denies Drugs: denies Patient does not endorse issue obtaining food or medications and all utilities are working. Discharge disposition: SNF placement. SNF list given. Patient and family looking it over. Tool Lapper Hand will continue to follow for ongoing discharge transition needs. - Mable Fisher RN 05/19/25 12:50 PM Family wants to go to SNF closer to home instead of [facility]. Referrals sent. - Mable Fisher RN 05/19/25 1:47 PM [id number] Progress note* PT/OT/SLIVER CUTTER - RADHA Christensen/Andrea - 05/19/2025 11:24 AM [...] her down in the bathtub. Taken [place] [facility] was found to have the following: [...] Past Medical History: Diagnosis Date Breast cancer ([facility]) 6 Clicks: Daily Activity Putting on [...] Mobility Equipment: gait belt, RW, chair alarm Telemetry/Substitute Bus Driver: Yes Other: fall risk, some confusion/disorientation Pain [...] daughter Clotilde and her Lola live in [place] and [place] family in the [facility] - Clotilde stated she would stay [...] Patient will perform functional mobility with Modified Henry Dates: Start: 05/19/25 Expected End: 06/16/25 Description: [...] Patient will perform toilet transfers with Modified Henry Dates: Start: 05/19/25 Expected End: 06/16/25 Description: Goal Description: Disciplines: OT Problem: Transfers Dates: Start: 05/19/25 Disciplines: OT Goal: Patient will perform transfers with Modified Henry Dates: Start: 05/19/25 Expected End: 06/16/25 Description: Goal Description: Disciplines: OT Problem: Tub/Shower Transfers Dates: Start: 05/19/25 Disciplines: OT Goal: Patient will perform tub/shower transfers with Stand By Assist Dates: Start: 05/19/25 Expected End: 06/16/25 Description: Goal Description: Disciplines: OT Occupational Therapy Care Plan (Resolved) There are no resolved problems. Principal Problem: ICH [facility]intracerebral hemorrhage) ([facility] [employer] Work Phone: [phone]) 164-402608-25-2025 Progress note* PT/OT/SLIVER CUTTER - Cass Alexis, PT - 05/19/2025 11:23 [...] an 85 yo female admit 05/17 from [facility] after found down at home by neighbor. Appears that pt had fall in kitchen and then walked to bathroom where she fell again. Pt amnestic to events. Pt with laceration to back of head and found to have skull fracture, B SAH in temporal lobes andIPH L frontal lobe. 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 Pt did have 1 other fall earlier this year. Prior Function Lives With: Alone Receives Help From: Family (Step-dtr Clotilde and her Lola live in [place]. Clotilde reports she would be able to [...] Pt amb 12 feet in room with STUDIO TECHNICIAN x 2, 40 [address] hallway with [...] Goal: Patient will perform gait with Modified Henry Dates: Start: 05/19/25 Expected End: 06/06/25 Description: [...] Goal: Patient will perform transfers with Modified Henry Dates: Start: 05/19/25 Expected End: 06/06/25 Description: Goal Description: with RW support as needed Disciplines: PT Physical Therapy Care Plan (Resolved) There are no resolved problems. Principal Problem: ICH (intracerebral hemorrhage) ([facility] [phone] Plan of care note* Plan of Care - Jude Tafoya RN - 05/19/2025 7:15 AM EDT Problem: Pain Goal: Patient goal is pain score less than 4, able to rest, and participant in treatment plan as appropriate Description: INTERVENTIONS: 1. Encourage patient or legal scheduling representative to report early pain and ask [...] per policy 9. Teach patient or legal scheduling representative interventions for comforting Outcome: Progressing Note: [...] at the bedside 7. Instruct patient/ patient scheduling representative about use of safety devices 8. Include patient/ patient scheduling representative in decisions related to safety Outcome: [...] hygiene technique. 7. Identify and instruct patient/patient scheduling representative in use of appropriate isolation precautionsfor identified infection/symptoms. 8. Provide and discuss with patient/patient scheduling representative on educational MDRO sheet. 9. Encourage and monitor nutritional status daily and consult solvent plant operator if indicated. 10. Implement neutropenic guidelines as needed. Outcome: Progressing Note: Currently being treated for infection. Care continues, along with collaboration with care team as new signs and symptoms arise. Problem: Knowledge Deficit Goal: Patient/patient scheduling representative demonstrates understanding of disease process, treatment [...] develop effective communication strategies 4. Include patient/patient scheduling representative in decisions related to communication Outcome: [...] Collaborate with ancillary departments 14. Include patient/patient scheduling representative in decisions related to anxiety Outcome: [...] providing care 6. Collaborate with pastoral/spiritual care, medical social consultant, mental health counselor as needed. 7. Instruct patient on diversional activities such as physical activity, distraction, and deep breathing exercises to assist with coping 8. Involve patient's scheduling representative in care Outcome: Progressing Note: Patient [...] supplement as ordered 13. Collaborate with clinical solvent plant operator 14. Include patient/ patient's scheduling representative in decisions related to nutrition Outcome: [...] Moderate - High Risk Fall Score Description: Brownell Fall Score of =/> 25 or indicated by [facility] Assessment Goal: Patient should be free from fall Description: Interventions: 1. Clarinda to environment 2. Hourly rounds addressing the [...] non-skid footwear 11. Teach patient and patient scheduling representative to maintain environment for safety and [...] (cane, walker) within reach 19. Request patient scheduling representative bring adaptive equipment/mobility aids from home or obtain and provide as needed 20. Consult pharmacy regarding effects of med's affecting mobility, cognition, and alternatives 21. Obtain physician order for PT if risk factors associated with mobility are present 22. Obtain physician order for OT as appropriate 23. Utilize diversional activities 24. Educate patient and patient scheduling representative how to maintain a safe environment during visitationtimes (notify nurse prior to leaving bedside) 25. Consider appropriateness of medical or non-medical billing representative 26. Set up voiding schedule as appropriate (every 2 hours) Outcome: Progressing Note: Fall risk assessment preformed and safety measures in place. Education given to family/patient. Care continues. [facility] [phone] Plan of care note* Plan of Care - Emily Byrne RN - 05/18/2025 8:47 PM EDT Problem: Pain Goal: Patient goal is pain score less than 4, able to rest, and participant in treatment plan as appropriate Description: INTERVENTIONS: 1. Encourage patient or legal scheduling representative to report early pain and ask [...] per policy 9. Teach patient or legal scheduling representative interventions for comforting Outcome: Progressing Note: [...] at the bedside 7. Instruct patient/ patient scheduling representative about use of safety devices 8. Include patient/ patient scheduling representative in decisions related to safety Outcome: [...] hygiene technique. 7. Identify and instruct patient/patient scheduling representative in use of appropriate isolation precautionsfor identified infection/symptoms. 8. Provide and discuss with patient/patient scheduling representative on educational MDRO sheet. 9. Encourage and monitor nutritional status daily and consult solvent plant operator if indicated. 10. Implement neutropenic guidelines as needed. Outcome: Progressing Note: Currently being treated for infection. Will continue to monitor for new signs and symptoms. Problem: Knowledge Deficit Goal: Patient/patient scheduling representative demonstrates understanding of disease process, treatment [...] supplement as ordered 13. Collaborate with clinical solvent plant operator 14. Include patient/ patient's scheduling representative in decisions related to nutrition Outcome: Progressing Note: Pt nutritional needs monitored and addressed as ordered by physician. Dietary recommendationsappreciated as ordered. Problem: Moderate - High Risk Fall Score Description: Conrad Fall Score of =/> 25 or indicated by [facility] Assessment Goal: Patient should be free from fall Description: Interventions: 1. Clarinda to environment 2. Hourly rounds addressing the [...] non-skid footwear 11. Teach patient and patient scheduling representative to maintain environment for safety and [...] (cane, walker) within reach 19. Request patient scheduling representative bring adaptive equipment/mobility aids from home or obtain and provide as needed 20. Consult pharmacy regarding effects of med's affecting mobility, cognition, and alternatives 21. Obtain physician order for PT if risk factors associated with mobility are present 22. Obtain physician order for OT as appropriate 23. Utilize diversional activities 24. Educate patient and patient scheduling representative how to maintain a safe environment during visitationtimes (notify nurse prior to leaving bedside) 25. Consider appropriateness of medical or non-medical billing representative 26. Set up voiding schedule as appropriate (every 2 hours) Outcome: Progressing Note: Fall risk assessment preformed and safety measures in place. Education given to family/patient. Will continue to monitor. [employer]08-24-2025 Progress note* PT/OT/SLIVER CUTTER - Julienne Jolley CCC- SLIVER CUTTER - 05/18/2025 2:48 PM EDT Speech Therapy [...] Dysphagia Problem: Swallowing Dates: Start: 05/17/25 Disciplines: SLIVER CUTTER Goal: LTG: Patient will maintain adequate nutrition/ hydration with optimum safety and efficiency of swallowing function of oral intake without overt signs/symptoms of aspiration for the highest appropriate diet level Dates: Start: 05/17/25 Expected End: 06/17/25 Disciplines: SLIVER CUTTER Goal: STG: Patient will tolerate therapeutic feeding trials of advanced textures with 90% accuracy with minimal cueing Dates: Start: 05/17/25 Expected End: 06/17/25 Disciplines: SLIVER CUTTER Outcomes Date/Time User Outcome 05/18/25 1451 Julienne Jolley CCC-GI Progressing Template: ST - Rehab Speech Problem: Auditory Comprehension Dates: Start: 05/17/25 Disciplines: SLIVER CUTTER Goal: LTG: Patient will comprehend communication related to basic medical and social needs and utilize compensatory strategies to maintain safety in a functional living environment Dates: Start: 05/17/25 Expected End: 06/17/25 Disciplines: SLIVER CUTTER Goal: STG: Patient will answer simple yes/no questions with 90% accuracy with minimal cueing. Dates: Start: 05/17/25 Expected End: 06/17/25 Disciplines: SLIVER CUTTER Problem: Verbal Expression Dates: Start: 05/17/25 Disciplines: SLIVER CUTTER Goal: LTG: Patient will utilize compensatory strategies to communicate wants and needs effectively to different conversational partners, maintain safety and participate socially in a functional living environment Dates: Start: 05/17/25 Expected End: 06/17/25 Disciplines: SLIVER CUTTER Goal: STG: Patient will complete simple naming tasks at word level (objects, pictures) in activities of daily living with 90% accuracy with minimal cueing Dates: Start: 05/17/25 Expected End: 06/17/25 Disciplines: SLIVER CUTTER Speech Therapy Care Plan (Resolved) There are no resolved problems. 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 Encourage patient or legal scheduling representative to report early pain and ask [...] per policy 9. Teach patient or legal scheduling representative interventions for comforting Outcome: Progressing Note: [...] at the bedside 7. Instruct patient/ patient scheduling representative about use of safety devices 8. Include patient/ patient scheduling representative in decisions related to safety Outcome: [...] hygiene technique. 7. Identify and instruct patient/patient scheduling representative in use of appropriate isolation precautionsfor identified infection/symptoms. 8. Provide and discuss with patient/patient scheduling representative on educational MDRO sheet. 9. Encourage and monitor nutritional status daily and consult solvent plant operator if indicated. 10. Implement neutropenic guidelines as needed. Outcome: Progressing Note: Currently being treated for infection. Will continue to monitor for new signs and symptoms. Problem: Knowledge Deficit Goal: Patient/patient scheduling representative demonstrates understanding of disease process, treatment [...] supplement as ordered 13. Collaborate with clinical solvent plant operator 14. Include patient/ patient's scheduling representative in decisions related to nutrition Outcome: Progressing Note: Pt nutritional needs monitored and addressed as ordered by physician. Dietary recommendationsappreciated as ordered. Problem: Moderate - High Risk Fall Score Description: Conrad Fall Score of =/> 25 or indicated by [facility] Assessment Goal: Patient should be free from fall Description: Interventions: 1. Clarinda to environment 2. Hourly rounds addressing the [...] non-skid footwear 11. Teach patient and patient scheduling representative to maintain environment for safety and [...] (cane, walker) within reach 19. Request patient scheduling representative bring adaptive equipment/mobility aids from home or obtain and provide as needed 20. Consult pharmacy regarding effects of med's affecting mobility, cognition, and alternatives 21. Obtain physician order for PT if risk factors associated with mobility are present 22. Obtain physician order for OT as appropriate 23. Utilize diversional activities 24. Educate patient and patient scheduling representative how to maintain a safe environment during visitationtimes (notify nurse prior to leaving bedside) 25. Consider appropriateness of medical or non-medical billing representative 26. Set up voiding schedule as appropriate (every 2 hours) Outcome: Progressing Note: Fall risk assessment preformed and safety measures in place. Education given to family/patient. Will continue to monitor. [facility]08-23-2025 Consult note* Crescencio Cox, TRACY - 05/17/2025 12:43 PM EDTAssociated Order(s): IP CONSULT TO NEUROSURGERY Images from the original note were not included. [facility] [address] [place] [address], [address] [place] [address] * NEUROSURGERY CONSULT NOTE DATE:05/17/2025 PATIENT'S NAME: Mei Guardado PATIENT'S PATIENT'S : 1940 NEUROSURGERY ATTENDING: Val[place] REASON FOR CONSULT [facility] HISTORY OF PRESENT ILLNESS Mei Guardado is a 85 y.o. White or female who presented to [facility] after beingfound down in her bathtub. She had an unknown downtime. [facility] Neurosurgery consulted for evaluation. ALLERGIES No [...] IVPB, 3,000 mg, intravenous, PRN, Mary Lowe APRN-AIRCRAFT MECHANIC ELECTRICAL AND RADIO cefTRIAXone (ROCEPHIN) 1,000 mg in sodium chloride 0.9 % 50 mL IVPB W/ADAPTER, 1,000 mg, intravenous, Q24H, Salome Chávez APRN-AIRCRAFT MECHANIC ELECTRICAL AND RADIO dextrose (GLUTOSE) 40 % gel 15 g, 15 g, oral, PRN, Mary Lowe CONCRETE ENGINEER-SHAYNA dextrose 5 % (D5W) infusion, 100 mL/hr, intravenous, Continuous PRN, Mary Lowe CONCRETE ENGINEER-AIRCRAFT MECHANIC ELECTRICAL AND RADIO dextrose 50 % in water (D50W) 50% solution 25 mL, 25 mL, intravenous, PRN, Mary Lowe CONCRETE ENGINEER-AIRCRAFT MECHANIC ELECTRICAL AND RADIO glucagon HCL injection 1 mg, 1 mg, intramuscular, PRN, Mary Lowe CONCRETE ENGINEER-AIRCRAFT MECHANIC ELECTRICAL AND RADIO hydrALAZINE (APRESOLINE) injection 10 mg, 10 mg, [...] mg, 500 mg,oral, Q12H SHANTELLE, Mary Lowe CONCRETE ENGINEER-AIRCRAFT MECHANIC ELECTRICAL AND RADIO magnesium sulfate IVPB 2000 mg/50 mL in iso-osmotic water (40 mg/mL premix), 2,000 mg, intravenous,PRN, Stopped at 05/17/25 0415 OR magnesium sulfate IVPB 4000 mg/100 mL in iso-osmotic water (40mg/mL premix), 4,000 mg, intravenous, PRN, Mary Lowe CONCRETE ENGINEER-AIRCRAFT MECHANIC ELECTRICAL AND RADIO ondansetron (PF) (ZOFRAN) injection 4 mg, 4 mg, intravenous, Q6H PRN, Mary Lowe CONCRETE ENGINEER-AIRCRAFT MECHANIC ELECTRICAL AND RADIO pantoprazole (PROTONIX) injection 40 mg, 40 mg, intravenous, QAM AC, Mary Lowe APRN-AIRCRAFT MECHANIC ELECTRICAL AND RADIO, 40 mg at 05/17/25 0612 polyethylene glycol (GLYCOLAX) packet 17 g, 17 g, oral, Daily PRN, Bashar R Kahook, CONCRETE ENGINEER-AIRCRAFT MECHANIC ELECTRICAL AND RADIO potassium chloride (K-TAB,KLOR-CON) CR tablet 20-40 mEq, 20-40 mEq, oral, PRN OR potassium chloride (KAYCIEL) 20 mEq/15 mL solution 20-40 mEq, 20-40 mEq, oral, PRN, Bashar R Kahook, CONCRETE ENGINEER-AIRCRAFT MECHANIC ELECTRICAL AND RADIO potassium chloride IVPB 10 mEq/50 mL in water (0.2 mEq/mL premix), 10 mEq, intravenous, PRN OR potassium chloride IVPB 10 mEq/100 mL in water (0.1 mEq/mL premix), 10 mEq, intravenous, PRN, BasharR Kahook, CONCRETE ENGINEER-AIRCRAFT MECHANIC ELECTRICAL AND RADIO sennosides-docusate sodium (SENOKOT-S) 8.6-50 mg 2 tablet, 2 tablet, oral, Nightly, Bashar R Kahook, CONCRETE ENGINEER-AIRCRAFT MECHANIC ELECTRICAL AND RADIO sodium phosphate 20 mmol in sodium chloride 0.9 % 250 mL IVPB, 20 mmol, intravenous, PRN OR sodium phosphate 20 mmol in sodium chloride 0.9 % 100 mL IVPB, 20 mmol, intravenous, PRN OR sod phos di, mono-K phos mono (K-PHOS NEUTRAL) 250 mg tablet 2 tablet, 2 tablet, oral, PRN, Bashar R Kahook, CONCRETE ENGINEER-AIRCRAFT MECHANIC ELECTRICAL AND RADIO sodium chloride 0.9 % flush 3 mL, 3 mL, intravenous, PRN, Bashar R Kahook, CONCRETE ENGINEER-AIRCRAFT MECHANIC ELECTRICAL AND RADIO sodium chloride 0.9 % flush 3 mL, 3 mL, intravenous, Q12H SHANTELLE, Bashar R Kahook, CONCRETE ENGINEER-AIRCRAFT MECHANIC ELECTRICAL AND RADIO, 3 mL at 05/17/25 0832 sodium chloride 0.9 % infusion, 10 mL/hr, intravenous, Continuous PRN, Bashar R Kahook, CONCRETE ENGINEER-AIRCRAFT MECHANIC ELECTRICAL AND RADIO sodium chloride 0.9 % infusion, 10 mL/hr, intravenous, Continuous PRN, Bashar R Kahook, CONCRETE ENGINEER-AIRCRAFT MECHANIC ELECTRICAL AND RADIO sodium chloride 0.9 % infusion, 10 mL/hr, intravenous, Continuous PRN, Bashar R Kahook, CONCRETE ENGINEER-AIRCRAFT MECHANIC ELECTRICAL AND RADIO sodium chloride 0.9 % infusion, 100 mL/hr, intravenous, Continuous, Bashar R Kahook, CONCRETE ENGINEER-AIRCRAFT MECHANIC ELECTRICAL AND RADIO, LastRate: 100 mL/hr at 05/17/25 0134, 100 mL/hr at 05/17/25 0134 PAST MEDICAL AND SURGICAL HISTORY Past Medical History: Diagnosis Date Breast cancer ([facility]) Past Surgical History: Procedure Laterality Date BREAST [...] Component Value Units Date/Time Blood culture #1 [[id number]] Collected: 05/16/252307 Specimen: Blood, Venous Updated: 05/17/25 120 CULTURE RESULTS NO GROWTH <24 HRS Narrative: Suboptimal volume of blood collected, Results may be affected. Blood culture #2 [[id number]] Collected: 05/16/252307 Specimen: Blood, Venous Updated: 05/17/25 120 CULTURE RESULTS NO GROWTH <24 HRS Narrative: Suboptimal volume of blood collected, Results may be affected. Urine Culture Urine, Indwelling Catheter [[id number]] Collected: 05/16/252307 Specimen: Urine, Indwelling Catheter Updated: [...] Kellogg - remainder per trauma. AHMET Vega-, PROFESSOR OF INDUSTRIAL TECHNOLOGY Neurosurgery [facility] EPIC Chat preferred 05/17/25 12:43 PM To find out which ANA is on for the day please go to ON-Call Finder in Reddit or Siine and use log in [employer] and search for PTH Neurosurgery TRACY Garcia 05/17/25 1253 [facility] Work Phone: [phone]) 239-407908-23-2025 Consult note* TRACY Garcia - 05/17/2025 12:43 PM EDTAssociated Order(s): IP CONSULT TO NEUROSURGERY Images from the original note were not included. [facility] [address] [place] [address], [address] [place] [address] * NEUROSURGERY CONSULT NOTE DATE:05/17/2025 PATIENT'S NAME: Mei Guardado PATIENT'S PATIENT'S : 1940 NEUROSURGERY ATTENDING: Valdez REASON FOR CONSULT [facility] HISTORY OF PRESENT ILLNESS Mei Guardado is a 85 y.o. White or female who presented to [facility] after beingfound down in her bathtub. She [...] 650 mg, rectal, Q6H PRN, Mary Lowe APRN-AIRCRAFT MECHANIC ELECTRICAL AND RADIO calcium gluconate IVPB 1000 mg/50 mL (20 [...] mL, 25 mL, intravenous, PRN, Mary Lowe CONCRETE ENGINEER-AIRCRAFT MECHANIC ELECTRICAL AND RADIO glucagon HCL injection 1 mg, 1 mg, [...] premix), 4,000 mg, intravenous, PRN, Mary Adamsk, CONCRETE ENGINEER-AIRCRAFT MECHANIC ELECTRICAL AND RADIO ondansetron (PF) (ZOFRAN) injection 4 mg, 4 mg, intravenous, Q6H PRN, Mary Bondoocandida, CONCRETE ENGINEER-AIRCRAFT MECHANIC ELECTRICAL AND RADIO pantoprazole (PROTONIX) injection 40 mg, 40 mg, intravenous, QAM AC, Mary Lowe, CONCRETE ENGINEER-AIRCRAFT MECHANIC ELECTRICAL AND RADIO, 40 mg at 05/17/25 0612 polyethylene glycol (GLYCOLAX) packet 17 g, 17 g, oral, Daily PRN, Mary Lowe, CONCRETE ENGINEER-AIRCRAFT MECHANIC ELECTRICAL AND RADIO potassium chloride (K-TAB,KLOR-CON) CR tablet 20-40 mEq, 20-40 mEq, oral, PRN OR potassium chloride (KAYCIEL) 20 mEq/15 mL solution 20-40 mEq, 20-40 mEq, oral, PRN, Mary Adamsk, CONCRETE ENGINEER-AIRCRAFT MECHANIC ELECTRICAL AND RADIO potassium chloride IVPB 10 mEq/50 mL in water (0.2 mEq/mL premix), 10 mEq, intravenous, PRN OR potassium chloride IVPB 10 mEq/100 mL in water (0.1 mEq/mL premix), 10 mEq, intravenous, PRN, Anselmo Adamsk, CONCRETE ENGINEER-AIRCRAFT MECHANIC ELECTRICAL AND RADIO sennosides-docusate sodium (SENOKOT-S) 8.6-50 mg 2 tablet, 2 tablet, oral, Nightly, Mary Adamsk, CONCRETE ENGINEER-AIRCRAFT MECHANIC ELECTRICAL AND RADIO sodium phosphate 20 mmol in sodium chloride 0.9 % 250 mL IVPB, 20 mmol, intravenous, PRN OR sodium phosphate 20 mmol in sodium chloride 0.9 % 100 mL IVPB, 20 mmol, intravenous, PRN OR sod phos di, mono-K phos mono (K-PHOS NEUTRAL) 250 mg tablet 2 tablet, 2 tablet, oral, PRN, Mary Bondook, CONCRETE ENGINEER-AIRCRAFT MECHANIC ELECTRICAL AND RADIO sodium chloride 0.9 % flush 3 mL, 3 mL, intravenous, PRN, Mary Bondook, CONCRETE ENGINEER-AIRCRAFT MECHANIC ELECTRICAL AND RADIO sodium chloride 0.9 % flush 3 mL, 3 mL, intravenous, Q12H SHANTELLE, Bashar R Kahook, CONCRETE ENGINEER-AIRCRAFT MECHANIC ELECTRICAL AND RADIO, 3 mL at 05/17/25 0832 sodium chloride 0.9 % infusion, 10 mL/hr, intravenous, Continuous PRN, Bashar R Kahook, CONCRETE ENGINEER-AIRCRAFT MECHANIC ELECTRICAL AND RADIO sodium chloride 0.9 % infusion, 10 mL/hr, intravenous, Continuous PRN, Bashar R Kahook, CONCRETE ENGINEER-AIRCRAFT MECHANIC ELECTRICAL AND RADIO sodium chloride 0.9 % infusion, 10 mL/hr, intravenous, Continuous PRN, Bashar R Kahook, CONCRETE ENGINEER-AIRCRAFT MECHANIC ELECTRICAL AND RADIO sodium chloride 0.9 % infusion, 100 mL/hr, intravenous, Continuous, Bashar R Kahook, CONCRETE ENGINEER-AIRCRAFT MECHANIC ELECTRICAL AND RADIO, LastRate: 100 mL/hr at 05/17/25 0134, 100 mL/hr at 05/17/25 0134 PAST MEDICAL AND SURGICAL HISTORY Past Medical History: Diagnosis Date Breast cancer ([facility]) Past Surgical History: Procedure Laterality Date BREAST [...] Component Value Units Date/Time Blood culture #1 [[id number]] Collected: 05/16/252307 Specimen: Blood, Venous Updated: 05/17/251201 CULTURE RESULTS NO GROWTH <24 HRS Narrative: Suboptimal volume of blood collected, Results may be affected. Blood culture #2 [[id number]] Collected: 05/16/252307 Specimen: Blood, Venous Updated: 05/17/251201 CULTURE RESULTS NO GROWTH <24 HRS Narrative: Suboptimal volume of blood collected, Results may be affected. Urine Culture Urine, Indwelling Catheter [[id number]] Collected: 05/16/252307 Specimen: Urine, Indwelling Catheter Updated: [...] Kellogg - remainder per trauma. SITA Vega, PROFESSOR OF INDUSTRIAL TECHNOLOGY Neurosurgery [facility] EPIC Chat preferred 05/17/25 12:43 PM To find out which ANA is on for the day please go to ON-Call Finder in Reddit or Siine and use log in [employer] and search for PTH Neurosurgery TRACY Garcia 05/17/25 1253 [facility] Progress note* PT/OT/SLIVER CUTTER - Julienne Jolley CCC-SLIVER CUTTER - 05/17/2025 9:55 AM EDT Speech Therapy Evaluation Bedside Swallow/Feeding Evaluation Speech & Language Cognitive Evaluation Discharge Recommendations for Safe Patient Transition SLIVER CUTTER Therapy Recommendations: Continue ST services Recommendations Diet [...] and reassess as appropriate. Prognosis Services: Skilled SLIVER CUTTER services to address above deficits Prognosis/Potential: Good Considerations: Previous level of function Discharge Recommendations for Safe Patient Transition SLIVER CUTTER Therapy Recommendations: Continue ST services Impressions Receptive Language: Severe Expressive Language: Severe Cognitive Linguistic: Severe Plan Frequency: 1-2days/week Duration: Until discharge Treatments/Modalities: Strategies/techniques training Need for skilled Speech Language Pathology Services to address deficits in speech/language/cognition due to a status decline resulting from trauma s/p fall. Prognosis Services: Skilled SLIVER CUTTER services to address the above deficits Prognosis/Potential: [...] Dysphagia Problem: Swallowing Dates: Start: 05/17/25 Disciplines: SLIVER CUTTER Goal: LTG: Patient will maintain adequate nutrition/ hydration with optimum safety and efficiency of swallowing function of oral intake without overt signs/symptoms of aspiration for the highest appropriate diet level Dates: Start: 05/17/25 Expected End: 06/17/25 Disciplines: SLIVER CUTTER Goal: STG: Patient will tolerate therapeutic feeding trials of advanced textures with 90% accuracy with minimal cueing Dates: Start: 05/17/25 Expected End: 06/17/25 Disciplines: SLIVER CUTTER Template: ST - Rehab Speech Problem: Auditory Comprehension Dates: Start: 05/17/25 Disciplines: SLIVER CUTTER Goal: LTG: Patient will comprehend communication related to basic medical and social needs and utilize compensatory strategies to maintain safety in a functional living environment Dates: Start: 05/17/25 Expected End: 06/17/25 Disciplines: SLIVER CUTTER Goal: STG: Patient will answer simple yes/no questions with 90% accuracy with minimal cueing. Dates: Start: 05/17/25 Expected End: 06/17/25 Disciplines: SLIVER CUTTER Problem: Verbal Expression Dates: Start: 05/17/25 Disciplines: SLIVER CUTTER Goal: LTG: Patient will utilize compensatory strategies to communicate wants and needs effectively to different conversational partners, maintain safety and participate socially in a functional living environment Dates: Start: 05/17/25 Expected End: 06/17/25 Disciplines: SLIVER CUTTER Goal: STG: Patient will complete simple naming tasks at word level (objects, pictures) in activities of daily living with 90% accuracy with minimal cueing Dates: Start: 05/17/25 Expected End: 06/17/25 Disciplines: SLIVER CUTTER Speech Therapy Care Plan (Resolved) There are no resolved problems. Principal Problem: [id number] Plan of care note* Plan of Care - Young Parr RN - 05/17/2025 9:21 AM EDT Problem: Pain Goal: Patient goal is pain score less than 4, able to rest, and participant in treatment plan as appropriate Description: INTERVENTIONS: 1. Encourage patient or legal scheduling representative to report early pain and ask [...] per policy 9. Teach patient or legal scheduling representative interventions for comforting Outcome: Progressing Note: [...] at the bedside 7. Instruct patient/ patient scheduling representative about use of safety devices 8. Include patient/ patient scheduling representative in decisions related to safety Outcome: [...] hygiene technique. 7. Identify and instruct patient/patient scheduling representative in use of appropriate isolation precautionsfor identified infection/symptoms. 8. Provide and discuss with patient/patient scheduling representative on educational MDRO sheet. 9. Encourage and monitor nutritional status daily and consult solvent plant operator if indicated. 10. Implement neutropenic guidelines as needed. Outcome: Progressing Note: Continue treatment Problem: Knowledge Deficit Goal: Patient/patient scheduling representative demonstrates understanding of disease process, treatment [...] develop effective communication strategies 4. Include patient/patient scheduling representative in decisions related to communication Outcome: [...] Collaborate with ancillary departments 14. Include patient/patient scheduling representative in decisions related to anxiety Outcome: [...] providing care 6. Collaborate with pastoral/spiritual care, medical social consultant, mental health counselor as needed. 7. Instruct patient on diversional activities such as physical activity, distraction, and deep breathing exercises to assist with coping 8. Involve patient's scheduling representative in care Outcome: Progressing Note: na [...] supplement as ordered 13. Collaborate with clinical solvent plant operator 14. Include patient/ patient's scheduling representative in decisions related to nutrition Outcome: [...] Score of =/> 25 or indicated by [facility] Assessment Goal: Patient should be free from fall Description: Interventions: 1. Clarinda to environment 2. Hourly rounds addressing the [...] non-skid footwear 11. Teach patient and patient scheduling representative to maintain environment for safety and [...] (cane, walker) within reach 19. Request patient scheduling representative bring adaptive equipment/mobility aids from home or obtain and provide as needed 20. Consult pharmacy regarding effects of med's affecting mobility, cognition, and alternatives 21. Obtain physician order for PT if risk factors associated with mobility are present 22. Obtain physician order for OT as appropriate 23. Utilize diversional activities 24. Educate patient and patient scheduling representative how to maintain a safe environment during visitationtimes (notify nurse prior to leaving bedside) 25. Consider appropriateness of medical or non-medical billing representative 26. Set up voiding schedule as appropriate (every 2 hours) Outcome: Progressing Note: Fall risk assessment preformed and safety measures in place. Education given to family/patient. Will continue to monitor. [employer] [id number] Plan of care note* Plan of Care - Emily Byrne RN - 05/17/2025 3:52 AM EDT Problem: Pain Goal: Patient goal is pain score less than 4, able to rest, and participant in treatment plan as appropriate Description: INTERVENTIONS: 1. Encourage patient or legal scheduling representative to report early pain and ask [...] per policy 9. Teach patient or legal scheduling representative interventions for comforting Outcome: Progressing Note: [...] at the bedside 7. Instruct patient/ patient scheduling representative about use of safety devices 8. Include patient/ patient scheduling representative in decisions related to safety Outcome: [...] hygiene technique. 7. Identify and instruct patient/patient scheduling representative in use of appropriate isolation precautionsfor identified infection/symptoms. 8. Provide and discuss with patient/patient scheduling representative on educational MDRO sheet. 9. Encourage and monitor nutritional status daily and consult solvent plant operator if indicated. 10. Implement neutropenic guidelines as needed. Outcome: Progressing Note: Currently being treated for UTI. Will continue to monitor for new signs and symptoms. Problem: Knowledge Deficit Goal: Patient/patient scheduling representative demonstrates understanding of disease process, treatment [...] supplement as ordered 13. Collaborate with clinical solvent plant operator 14. Include patient/ patient's scheduling representative in decisions related to nutrition Outcome: Progressing Note: Pt nutritional needs monitored and addressed as ordered by physician. Dietary recommendationsappreciated as ordered. Problem: Moderate - High Risk Fall Score Description: Conrad Fall Score of =/> 25 or indicated by [facility] Assessment Goal: Patient should be free from fall Description: Interventions: 1. Clarinda to environment 2. Hourly rounds addressing the [...] non-skid footwear 11. Teach patient and patient scheduling representative to maintain environment for safety and [...] (cane, walker) within reach 19. Request patient scheduling representative bring adaptive equipment/mobility aids from home or obtain and provide as needed 20. Consult pharmacy regarding effects of med's affecting mobility, cognition, and alternatives 21. Obtain physician order for PT if risk factors associated with mobility are present 22. Obtain physician order for OT as appropriate 23. Utilize diversional activities 24. Educate patient and patient scheduling representative how to maintain a safe environment during visitationtimes (notify nurse prior to leaving bedside) 25. Consider appropriateness of medical or non-medical billing representative 26. Set up voiding schedule as appropriate (every 2 hours) Outcome: Progressing Note: Fall risk assessment preformed and safety measures in place. Education given to family/patient. Will continue to monitor. [facility]08-22-2025 History and physical note* Edgardo Ye, - 05/16/2025 10:56 PM EDT Images from the original note were not included. Trauma Surgery History & Physical Examination /Consultation Note Patient: Mei Guardado Date of : 1940 Estimated time of injury: Unknown, last point of contact was morning of 05/15/25, found down around 16:00 today LOC: Yes Transport: EMS from [facility] Trauma level: Trauma Consult Work related: No History of Present Illness Mei Guardado is an 85 y.o. White or female with unknown past medical history, transferred from [facility] for trauma consult after being found unresponsive at home in her bathtub after a fall. Unknown time down. Last known contact with patient was the morning of 05/15/2025, when she was acting her normal baseline. At baseline, patient is A&O x4 and conversive. Workup at [facility] is notable for CT brain revealing skull fracture, multifocal subarachnoid hemorrhages within the bilateral temporal lobes and in the bilateral cerebellum. There was also an intraparenchymal hemorrhage within the left frontal lobe with surrounding edema. Additionally patient had an elevated lactate. Patient was given 2 g Rocephin, 1 g vancomycin, and 1 L of fluids at [facility]. Hemoglobin at that time was 13. Per [...] Recent Results (from the past 24 hours) [place] draw Collection Time: 05/16/25 10:44 PM Narrative The following orders were created for panel order [place] draw. Procedure Abnormality Status --------- ------ Michelle Top On Ice[[id number]] Please view results for these tests on the individual orders. Cultures: Microbiology Results (last 21 days) Procedure Component Value - Date/Time Urine Culture Urine, Indwelling Catheter [[id number]] Lab Status: No result Specimen: Urine, Indwelling [...] with unknown past medical history, transferred from [facility] for trauma consult after being found unresponsive at home in her bathtub after a fall. Unknown time down. Last known contact with patient was the morning of 05/15/2025, when she was acting her normal baseline. Injuries/Traumatic issues: Traumatic fall -TraumaGram - imaging obtained from [facility], results reviewed - CT chest: Bibasilar atelectasis/pneumonitis [...] IV fluids - PT OT eval - SLIVER CUTTER eval - monitor vitals - cardiac monitoring [...] Lactic acidosis, leukocytosis - lactate 6.2 at [facility] - WBC 20.2 - possible sepsis given leukocytosis, tachycardia, and lactic acidosis, however no identifiable source of infection at this time. Possible aspiration given CT chest results - daily labs - trend lactate - IV fluids - started on Rocephin and vancomycin 5. Elevated creatinine kinase - 354 at [facility] - repeat CK, trend for possible rhabdo [...] Additional Notes/Findings: 85-year-old female transferred from an [facility] after having been found [...] to be admitted to the neuro ICU [facility] Work Phone: 1(576) 858-183808-22-2025 History and physical note* Edgardo Ye DO - 05/16/2025 10:56 PM EDT Images from the original note were not included. Trauma Surgery History & Physical Examination /Consultation Note Patient: Mei Guardado Date of : 1940 Estimated time of injury: Unknown, last point of contact was morning of 05/15/25, found down around 16:00 today LOC: Yes Transport: EMS from [facility] Trauma level: Trauma Consult Work related: No History of Present Illness Mei Guardado is an 85 y.o. White or female with unknown past medical history, transferred from [facility] for trauma consult after being found unresponsive at home in her bathtub after a fall. Unknown time down. Last known contact with patient was the morning of 05/15/2025, when she was acting her normal baseline. At baseline, patient is A&O x4 and conversive. Workup at [facility] is notable for CT brain revealing skull fracture, multifocal subarachnoid hemorrhages within the bilateral temporal lobes and in the bilateral cerebellum. There was also an intraparenchymal hemorrhage within the left frontal lobe with surrounding edema. Additionally patient had an elevated lactate. Patient was given 2 g Rocephin, 1 g vancomycin, and 1 L of fluids at [facility]. Hemoglobin at that time was 13. Per [...] Recent Results (from the past 24 hours) [place] draw Collection Time: 05/16/25 10:44 PM Narrative The following orders were created for panel order [place] draw. Procedure Abnormality Status --------- ------ Michelle Top On Ice[[id number]] Please view results for these tests on the individual orders. Cultures: Microbiology Results (last 21 days) Procedure Component Value - Date/Time Urine Culture Urine, Indwelling Catheter [[id number]] Lab Status: No result Specimen: Urine, Indwelling [...] with unknown past medical history, transferred from [facility] for trauma consult after being found unresponsive at home in her bathtub after a fall. Unknown time down. Last known contact with patient was the morning of 05/15/2025, when she was acting her normal baseline. Injuries/Traumatic issues: Traumatic fall -TraumaGram - imaging obtained from [facility], results reviewed - CT chest: Bibasilar atelectasis/pneumonitis [...] IV fluids - PT OT eval - SLIVER CUTTER eval - monitor vitals - cardiac monitoring [...] Lactic acidosis, leukocytosis - lactate 6.2 at [facility] - WBC 20.2 - possible sepsis given leukocytosis, tachycardia, and lactic acidosis, however no identifiable source of infection at this time. Possible aspiration given CT chest results - daily labs - trend lactate - IV fluids - started on Rocephin and vancomycin 5. Elevated creatinine kinase - 354 at [facility] - repeat CK, trend for possible rhabdo [...] to the neuro ICU [facility] Triage note* Paula Johansen RN - 05/16/2025 10:22 PM EDT Pt presents to the ED from [facility] as a trauma consult. Pt was found [...] rodriges in place on arrival. Pts VSS. [facility] Physician Emergency department Note* Jd Pires MD - 05/16/2025 10:22 PM EDT Images from the original note were not included. [facility] - EMERGENCY DEPARTMENT Pt Name: Mei Guardado [...] as of 05/16/25 2300 ICH (intracerebral hemorrhage) ([facility] . ED Disposition None . Please note that portions of this note were completed with a voice recognition program. Efforts were made to edit the dictations but occasionally words are mis-transcribed. Gopal Clayton 05/16/252222 Jd Pires MD 05/17/251939 [facility]08-[facility] Emergency department Note* Paula Johansen RN - 05/16/2025 10:22 PM EDT Pt presents to the ED from [facility] as a trauma consult. Pt was found [...] from the original note were not included. [facility] - EMERGENCY DEPARTMENT Pt Name: Mei Guardado [...] as of 05/16/25 2300 ICH (intracerebral hemorrhage) [facility] . ED Disposition None . Please [...] and posterior skull fracture. ground transport to [facility] Er accepted per Mei Francis 85 [...] 74, 16, 100% Step D[facility] Left at [facility]: 85 F [...] and posterior skull fracture. ground transport to [facility] Er accepted per Mei Francis 85 [...] 74, 16, 100% Step Daughter [facility] Left at [facility]: 85 F Found at home in bathtub with head injury Unknown down time Lac to back of head Brain bleeds Alert to verbal stimuli A&O 4 before this VSS 153/70 104 sinus tach 26 96% 20g R forearm 20 g LAC 15 mins out documented in this encounterSum[facility] Emergency department Note* Grabiel Keys RN - 05/16/2025 10:19 PM EDT Trauma consult , fall in shower at home, found with laceration to head and posterior skull fracture. ground transport to [facility] Er accepted per Mei Francis 85 [...] 74, 16, 100% Step Daughter [facility] Left at [facility]: 85 F Found at home in bathtub with head injury Unknown down time Lac to back of head Brain bleeds Alert to verbal stimuli A&O 4 before this VSS 153/70 104 sinus tach 26 96% 20g R forearm 20 g LAC 15 mins out [facility] Emergency department Note* Marci Noel RN - 05/16/2025 10:18 PM EDT Bed: 27 Expected date: Expected time: Means of arrival: Other EMS Transport ([facility]) Comments: Trauma consult , fall in shower at home, found with laceration to head and posterior skull fracture. ground transport to [facility] Er accepted per Dr Prieto Guardado, [...] 74, 16, 100% Step Daughter [facility] Left at [facility]: 85 F Found at home in bathtub with head injury Unknown down time Lac to back of head Brain bleeds Alert to verbal stimuli A&O 4 before this VSS 153/70 104 sinus tach 26 96% 20g R forearm 20 g LAC 15 mins out [facility] History of Present illness Narrative* ALIX Asher [...] for Medicare Wellness Visit. documented in this encounterUniversity of Missouri Children's [id number] History of Present illness Narrative* ALIX Asher [...] (around 03/08/2025) for Hypertension. documented in this encounterUniversity of Missouri Children's HospitalKuucjzydvm00-97-9202 Telephone encounter Note* Telephone Encounter - SANJAY WADDELL - 09/16/2024 1:26 PM EST Patient notified [facility] HospitalLgrnynjybf24-19-0008 Miscellaneous Notes* Telephone Encounter - SANJAY WADDELL [...] foods, and simple sugars. documented in this encounterUniversity of Missouri Children's HospitalCibtzsclyj11-02-9547 Telephone encounter Note* Telephone Encounter - LAIX Asher - 09/16/2024 8:00 AM EST Please let pt know that her recent labs showed her LDL (bad cholesterol) was elevated at 171. Similar to previous of 175. Her protein was mildly low. Otherwise labs looked good. Would just recommend she increase her protein intake in her diet. Limit fried foods, fast foods, fatty foods, and simple sugars. [facility] HospitalGjwtqwiyuc94-30-4662 History of Present illness Narrative* ALIX Asher [...] by direct observation Three Word Registration: Banana, [facility], Chair Clock Drawing: Normal Clock - 2 Three Word Recall: All 3 words correct - 3 Total Score (0-5 Points): 5 Pain Assessment Pain Score: 0 - No pain Advance Care Planning Do you have a living will?: Yes Do you have a medical power of sports attorney?: Yes Current Outpatient Medications on File [...] are suggested at this time. 4. Seizure ([facility]) No recent seizures. Not currently on any medication for seizures. Will continue to monitor. 5. Benign essential hypertension ([facility]) Patient's blood pressure is currently well [...] 8. Age-related osteoporosis without current pathological fracture ([facility]) This is a chronic medical condition [...] type The patient is seeing a medical records library professor for this condition, treatment is deferred to that specialist. Encouraged routine follow up appointments. 13. ACP Patient willing to discuss ACP. Pt has Living Will and DPOA in place. Follow up in about 6 months (around 03/13/2025) for Hypertension. Buck LEON PA-C documented in this encounterUniversity of Missouri Children's HospitalNvcvcmulra17-97-9974 History of Present illness Narrative* ALIX Asher [...] for Medicare Wellness Visit. documented in this encounterUniversity of Missouri Children's HospitalAsvcricpds11-62-5395 History of Present illness Narrative* Dhara Rodriguez [...] identified. See telephone encounter. documented in this encounterUniversity of Missouri Children's HospitalUspgyuspmg41-69-0528 History of Present illness Narrative* Neena Love [...] No follow-ups on file. documented in this encounterUniversity of Missouri Children's HospitalCliidkyivq74-08-6805 Instructions* Patient Instructions* Neena Love NP - 09/04/2024 2:00 PM EST Cefdinir started today. documented in this [facility]11-12-2024 History of Present illness Narrative* Jazzy Hutchins [...] (CMS/HCC) JEREMY (obstructive sleep apnea) Osteopenia Osteoporosis ([facility]) Past Surgical History: Procedure Laterality Date BREAST [...] No follow-ups on file. documented in this [facility]11-12-2024 Miscellaneous Notes* Addendum Note - Lynda Beckwith MA - 08/06/2024 9:30 AM ESTAddended by: LYNDA BECKWITH on: 08/06/2024 10:51 AM Modules accepted: Orders, Level of Service documented in this [facility]11-12-2024 Note* Addendum Note - Lynda Beckwith MA - 08/06/2024 9:30 AM ESTAddended by: LYNDA BECKWITH on: 08/06/2024 10:51 AM Modules accepted: Orders, Level of Service [facility] HospitalJvdkirhntt26-96-5969 Note* Addendum Note - Lynda Beckwith MA - 08/06/2024 9:30 AM ESTAddended by: LYNDA BECKWITH on: 08/06/2024 10:51 AM Modules accepted: Orders, Level of Service [facility] HospitalXbphbrmgre98-95-9930 History of Present illness Narrative* Onofre Zuleta, TAIM-AIRCRAFT MECHANIC [employer]LECTRICAL AND [employer] - 06/17/2024 8:30 AM EDT Images from [...] Next Visit: as scheduled documented in this encounterUniversity of Missouri Children's HospitalMcvjiyekly82-41-3159 History of Present illness Narrative* TRACY Morales - 06/03/2024 9:20 AM EDT Images from the original note were not included. Follow up Diagnosis: Onycholysis due to pseudomonas infection Location: Left 4th finger nail plate Last visit: 05/14/2024 Symptoms: denies pain and drainage; looks about the same Status: worse since wearing nail filipino over the weekend Current treatment: Vinegar soaks [...] Next Visit: 2 weeks documented in this encounterUniversity of Missouri Children's HospitalWspxvvhaje98-46-0616 Telephone encounter Note* Telephone Encounter - TRACY Morales - 05/14/2024 10:43 AM EDT Patient seen today in office. Cipro sent in to take BID x 10 days. Please move follow up from one month to 2 weeks. Thanks! [facility] HospitalJofdkhgtyt30-60-7913 Miscellaneous Notes* Telephone Encounter - TRACY Morales - 05/14/2024 10:43 AM EDT Patient seen today in office. Cipro sent in to take BID x 10 days. Please move follow up from one month to 2 weeks. Thanks! documented in this encounterUniversity of Missouri Children's HospitalYcnyxhvmvy24-12-9712 History of Present illness Narrative* TRACY Morales - 05/14/2024 10:05 AM EDT Images from the original note were not included. Follow up Diagnosis: Onycholysis due to pseudomonas infection Location: Left 4th finger nail plate Last visit: 3 months ago Symptoms: denies pain and drainage; seems to get better if pt doesn't wear nail filipino Status: worse since wearing nail filipino over the weekend Current treatment: Vinegar soaks [...] Next Visit: 1 month documented in this encounterUniversity of Missouri Children's HospitalGmxiijldme42-57-2009 History of Present illness Narrative* Onofre Zuleta, CONCRETE ENGINEER-AIRCRAFT MECHANIC [employer]LECT[employer]ICAL AND RADIO - 11/18/2024 9:35 AM EST Skin Check [...] limited to risks of scarring, darker or av specialist pigmentary changes, recurrence, incomplete removal and infection. [...] Next Visit: 1 year documented in this encounterUniversity of Missouri Children's HospitalEkiotdnggh25-28-5551 History of Present illness Narrative* TRACY Morales [...] limited to risks of scarring, darker or av specialist pigmentary changes, recurrence, incomplete removal and infection. [...] Next Visit: 1 year documented in this encounterUniversity of Missouri Children's HospitalKhznzisuwz85-63-1517 History of Present illness Narrative* ALIX Asher [...] Wellness Visit in May. documented in this encounterUniversity of Missouri Children's HospitalMepwenqopj73-74-4129 Evaluation note* Encounter Date Diagnosis Assessment Notes [...] Patient care instructions given in writting by [facility] Care At Home document. [facility] Other Evaluation note* Diagnosis Acute recurrent frontal [...] this encounter [facility] HealthcareEvaluation noteNo assessment information availableLakehealth Beachwood [facility] Work Phone: Evaluation note* Diagnosis ICH (intracerebral hemorrhage) (CMS-HCC)- Primary Intracerebral hemorrhage ICH (intracerebral hemorrhage) (CMS-HCC) Intracerebral hemorrhage Fall at home, initial encounter Closed fracture of right side of base of skull (CMS-HCC) Primary hypertension Unspecified essential hypertension Traumatic rhabdomyolysis documented in [facility]* Diagnosis Hypercholesterolemia- Primary Pure hypercholesterolemia [...] Cerebrospinal fluid rhinorrhea documented in this encounter [facility] HealthcareHistory general Narrative - Reported* Type Description Date Medical History breast cancer Medical HistoryHTNSurgical HistorylumpectomySurgical Historyrotator cuff Hospitalization HistorySee past surgical hx [facility] Other Hospital Discharge instructionsNot on filedocumented in this encounterFulton County Health Center SystemReason for referral (narrative)No reason for referral information availableSheltering Arms Hospital Ctr Work Phone: Summary Purpose Family [...] and content) DATE CREATED AUTHOR 03/19/2022 [facility] DATE CREATED AUTHOR AUTHOR'S ORGANIZ ATION 09/17/2024 [facility] DATE CREATED AUTHOR AUTHOR'S ORGANIZ ATION 05/20/2025 [facility] DATE CREATED AUTHOR AUTHOR'S ORGANIZ ATION 05/23/2025 [facility] DATE CREATED AUTHOR AUTHOR'S ORGANIZ ATION 05/23/2025 [facility] DATE CREATED AUTHOR AUTHOR'S ORGANIZ ATION 07/26/2025 [facility] EPIC REASON FOR VISIT (unrecogniz ed section and content) ReasonCommentsFollow-upReasonCommentsMedicare Annual Wellness Visit Subsequent ReasonCommentsHypertensionReasonCommentsHead InjurySpecialtyDiagnoses / ProceduresReferred By ContactReferred To Contact Diagnoses I[facility] (intrace[facility]bral [facility]) ([facility]) [facility] - Emergency Department [address] [facility] [place] [address] Phone: tel: fax: Referral IDStatusReasonStart DateExpiration DateVisits RequestedVisits [id number] Care Teams (unrecognized sec tion and content) Team MemberRelationshipSpecialtyStart DateEnd Date Ochoa Medina MD [address] [facility] [address] [place] [address] PCP - GeneralFamily Medicine02/16/23 Ochoa Medina MD [address] [facility] [address] [place] [address] PCP - [facility]CO [facility]02/16/23Team MemberRelationshipSpecialtyStart DateEnd Date Ochoa Medina MD [address] [place] [address] PCP - GeneralFamily Medicine02/16/23 Ochoa Medina MD [address] [place] [address] PCP - [facility]02/16/23Team MemberRelationshipSpecialtyStart DateEnd Date Ochoa Medina MD [address] [place] [address] [facility]CP - [facility]miFl[facility]02/16/23 Ochoa Medina MD [address] [place] [address] PCP - [facility]CO [facility]01/24/24Team MemberRelationshipSpecialtyStart DateEnd Date Ochoa Medina MD [address] [place] [address] PCP - Generalmily Medicine02/16/23 Ochoa Medina MD [address] [place] [address] PCP - [facility]01/24/24Team MemberRelationshipSpecialtyStart DateEnd Date Ochoa Medina MD [address] [place] [address] PCP - Generalmily Medicine02/16/23 Ochoa Medina MD [address] [place] [address] PCP - [facility]01/24/24Team MemberRelationshipSpecialtyStart DateEnd Date Ochoa Medina MD [address] [place] [address] [facility] - [facility] [place]02/16/23 Ochoa Medina MD [address] [place] [address] PCP - [facility]01/24/24Team MemberRelationshipSpecialtyStart DateEnd Date Ochoa Medina MD [address] [place] [address] PCP - [facility] [place]02/16/23 Ochoa Medina MD [address] [place] [address] PCP - [facility]01/24/24Team MemberRelationshipSpecialtyStart DateEnd Date Ochoa Medina MD [address] [place] [address] PCP - [facility] [place]02/16/23 Ochoa Medina MD [address] [place] [address] PCP - [facility]01/24/24Team MemberRelationshipSpecialtyStart DateEnd Date Ochoa Medina MD [address] [place] [address] [facility]CP - [facility]02/16/23 Ochoa Medina MD [address] [place] [address] PCP - [facility]01/24/24Team MemberRelationshipSpecialtyStart DateEnd Date Ochoa Medina MD [address] [place] [address] PCP - [facility] [place]02/16/23 Ochoa Medina MD [address] [place] [address] PCP - [facility]01/24/24Te MemberRelationshipSpecialtyStart DateEnd Date Ochoa Medina MD [address] [place] [address] PCP - [facility] [place]02/16/23 Ochoa Medina MD [address] [place] [address] PCP - [facility]01/24/24Te MemberRelationshipSpecialtyStart DateEnd Date Ochoa Medina MD [address] [place] [address] PCP - [facility] [place]02/16/23 Ochoa Medina MD [address] [place] [address] PCP - [facility]01/24/24Team MemberRelationshipSpecialtyStart DateEnd Date Ochoa Medina MD [address] [place] [address] PCP - GeneralFamily Medicine02/16/23 Ochoa Medina MD [address] [place] [address] PCP - [facility]01/24/24Team MemberRelationshipSpecialtyStart DateEnd Date Ochoa Medina MD [address] [place] [address] [facility] - [facility] Medicine02/16/23 Ochoa Medina MD [address] [facility] [address] [place] [address] PCP - [facility]01/24/24 Team Status: Inactive Member Role Status Dates Sage Hall DO Attending Provider Active Sta rt: May 16, 2025 End: May 16, 2025Team MemberRelationshipSpecialtyStart DateEnd [place] [address] PCP - Generalmily Medicine05/17/25Team MemberRelationshipSpecialtyStart DateEnd Date Ochoa Medina MD [address] [place] [address] PCP - Generalmily Medicine02/16/23 Ochoa Medina MD [address] [place] [address] PCP - [facility]01/24/24Team MemberRelationshipSpecialtyStart DateEnd Date Ochoa Medina MD [address] [place] [address] PCP - Generalmi Medicine02/16/23 Ochoa Medina MD [address] [place] [address] PCP - [facility]01/24/24Team MemberRelationshipSpecialtyStart DateEnd Date Ochoa Medina MD [address] [place] [address] PCP - [facility] [place]02/16/23 Ochoa Medina MD [address] [place] [address] PCP - [facility]01/24/24Team MemberRelationshipSpecialtyStart DateEnd Date Ochoa Medina MD [address] [place] [address] PCP - [facility] [place]02/16/23 Ochoa Medina MD [address] [place] [address] PCP - [facility]01/24/24Team MemberRelationshipSpecialtyStart DateEnd Date Ochoa Medina MD [address] [place] [address] PCP - [facility] [place]02/16/23 Ochoa Medina MD [address] [place] [address] PCP - [facility]/ Ochoa Medina MD [address] [place] [address] PCP - [facility]01/24/24 Goals (unrecognized section [...] met) * 2005 (Given - Provider: Emily Bryne RN) pantoprazole (PROTONIX) injection 40 mg (CANCELED) [...] BE BASED ON THE PRIMARY CLINICAL RECORDS. [employer] provides no warranty or guarantee of the accuracy or completeness of information in this document.
--- NOTE | 2025-09-22 10:16 | CT_ITS ---
The [address] [address] Patient Name: SON STROUD MRN: [id number] date: 1940 Sex: F Assigned Patient Location: ER Current Patient Location: ED.MAIN Accession/Order Number: [id number] Exam Date: 09/22/2025 10:11 Report Date: 09/22/2025 10:56 At the request of: SRIRAM QUINTANA MD Procedure: CT head/brain wo con CT BRAIN WITHOUT CONTRAST: CLINICAL HISTORY: fall COMPARISON: None TECHNIQUE: Contiguous axial unenhanced images were obtained through the brain. This CT exam was performed using one or more following dose reduction techniques: Automated exposure control, adjustment of the mA and/or kV according to patient size, or use of iterative reconstruction technique. FINDINGS: There is no evidence of midline shift, intra or extra-axial fluid collection, hemorrhage or CT evidence of of acute large vascular distribution stroke. Encephalomalacia left anterior frontal lobe likely sequelae of remote traumatic injury. Otherwise minor chronic small vessel ischemic disease and Central involutional change. Intracranial vascular disease. Cataract surgery. Visualized paranasal sinuses are clear. Stable appearance nondisplaced right occipital bone fracture. CT/CT head/brain wo con IMPRESSION: NO ACUTE INTRACRANIAL ABNORMALITY. Impression dictated by: Elvin Jane M.D. 09/22/2025 10:56 AM Dictation Location: [place] [address] Electronically authenticated by: [id number] Y Date: 09/22/2025 10:56
[2025-09-22 11:38] VITALS: BP 139/61; PULSE 74; O2SAT 98
== END 2025-09-22 11:39 | disposition home or self-care (01) ==
PROVIDERS: Emergency Provider Emergency Medicine; PCP Family Medicine
DX: S92.352A Displaced fracture of fifth metatarsal bone, left foot, initial encounter for closed fracture (principal); W19.XXXA Unspecified fall, initial encounter
CPT/HCPCS: 70450; 73630; 99284